=== PATIENT | male | born 1945 | race Hispanic/Latino ===

== ENCOUNTER 2018-06-02 20:39 | Inpatient (IN) | payer MEDICARE ==
[2018-06-02] MEDS ORDERED: NACL 0.9% 1000 ML 1,000 ML IV ONE ×2 (21:15→23:01)
--- NOTE | 2018-06-02 21:21 | Emergency Department Report ---
ED General Adult HPI - General Chief complaint: Weakness Stated complaint: AMS Time Seen by Provider: 06/02/18 21:02 Source: patient, EMS Mode of arrival: Stretcher Limitations: No Limitations - History of Present Illness Initial comments: Patient is 72 years old male with history of hypertension and posttraumatic stress disorder. Patient brought to the emergency room via EMS after patient neighbors called 911 saying that patient was not seen for a while. Patient 2 weeks ago and patient live by himself. Patient's complaining of generali zed weakness. Patient stated that the last time he ate was yesterday. Patient is confused and stated that his came on so him today. He denied any headache, chest pain or shortness of breath. Severity scale (0 -10): 0 - Related Data Previous Rx's Medication Instructions Recorded Last Taken Type Albuterol *Only Ed* [Proventil 2.5 mg IH Q4HRT PRN #1 nebu 10/03/14 Unknown Rx 0.5% NEBS] Folic Acid [Folvite] 1 mg PO QDAY #30 tablet 10/03/14 Unknown Rx Furosemide [Lasix TAB] 20 mg PO QDAY #30 tablet 10/03/14 Unknown Rx Metoprolol [Lopressor TAB] 12.5 mg PO BID #60 tablet 10/03/14 Unknown Rx Multivitamins Liq [Multiple 5 ml PO QDAY 30 Days oral.liqd 10/03/14 Unknown Rx Vitamin Liq (Theragran)] Thiamine [Vitamin B-1] 100 mg PO QDAY #30 tablet 10/03/14 Unknown Rx Allergies Allergy/AdvReac Type Severity Reaction Status Date / Time diphenhydramine HCl Allergy Unknown Verified 09/24/14 11:56 [From Benadryl] ED Review of Systems ROS: Stated complaint: AMS Other details as noted in HPI Comment: All other systems reviewed and negative Constitutional: denies: chills, fever Respiratory: denies: cough, orthopnea, shortness of breath, SOB with exertion, SOB at rest, wheezing Cardiovascular: denies: chest pain, palpitations, dyspnea on exertion Gastrointestinal: denies: abdominal pain, nausea, vomiting, diarrhea, constipation, hematemesis, melena, hematochezia Musculoskeletal: denies: back pain Neurological: weakness, confusion. denies: headache, numbness, paresthesias ED Past Medical Hx - Past Medical History Previous Medical History?: Yes Hx Hypertension: Yes Hx Seizures: Yes Hx Psychiatric Treatment: Yes (PTSD) Hx Asthma: Yes Additional medical history: patient altered hard to get history - Surgical History Past Surgical History?: No - Social History Smoking Status: Current Every Day Smoker - Medications Home Medications: Home Medications Medication Instructions Recorded Confirmed Last Taken Type Albuterol *Only Ed* [Proventil 2.5 mg IH Q4HRT PRN #1 nebu 10/03/14 Unknown Rx 0.5% NEBS] Folic Acid [Folvite] 1 mg PO QDAY #30 tablet 10/03/14 Unknown Rx Furosemide [Lasix TAB] 20 mg PO QDAY #30 tablet 10/03/14 Unknown Rx Metoprolol [Lopressor TAB] 12.5 mg PO BID #60 tablet 10/03/14 Unknown Rx Multivitamins Liq [Multiple 5 ml PO QDAY 30 Days oral.liqd 10/03/14 Unknown Rx Vitamin Liq (Theragran)] Thiamine [Vitamin B-1] 100 mg PO QDAY #30 tablet 10/03/14 Unknown Rx ED Physical Exam - General Limitations: No Limitations General appearance: alert, in no apparent distress - Head Head exam: Present: atraumatic, normocephalic, normal inspection - Eye Eye exam: Present: normal appearance - ENT ENT exam: Present: normal exam, normal orophraynx, mucous membranes moist - Neck Neck exam: Present: normal inspection, full ROM. Absent: tenderness, meningismus, lymphadenopathy, thyromegaly - Respiratory Respiratory exam: Present: normal lung sounds bilaterally - Cardiovascular Cardiovascular Exam: Present: regular rate, normal rhythm, normal heart sounds. Absent: bradycardia, tachycardia, irregular rhythm, systolic murmur, diastolic murmur, rubs, gallop - GI/Abdominal GI/Abdominal exam: Present: soft, normal bowel sounds. Absent: distended, tenderness, guarding, rebound, rigid, mass, bruit, pulsatile mass, hernia - Extremities Exam Extremities exam: Present: normal inspection, full ROM, normal capillary refill - Back Exam Back exam: Present: normal inspection, full ROM - Neurological Exam Neurological exam: Present: alert, oriented X3, CN II-XII intact, normal gait, reflexes normal - Skin Skin exam: Present: warm, intact, normal color ED Course Vital Signs 06/02/18 20:56 Temperature 98.2 F Pulse Rate 79 Respiratory 16 Rate Blood Pressure 140/85 Blood Pressure 140/85 [Left] O2 Sat by Pulse 99 Oximetry ED Medical Decision Making - Lab Data Result diagrams: 06/02/18 21:25 06/02/18 21:25 - EKG Data -: EKG Interpreted by Me Rate: normal - EKG Data Interpretation: no acute changes 06/02/18 23:26 ? atrial flutter - Radiology Data Radiology results: report reviewed Referring Physician: KLEVER FERNANDES Patient Name: JERO STODDARD Date of : 1945 Sex: Male Report Date: 2018-06-02 Report Status: Finalized Findings [facility] [address] [place] [address] Cat Scan Report Signed Patient: JERO STODDARD MR#: [id number] : 1945 Acct:[id number] Age/Sex: 72 / M ADM Date: 06/02/18 Loc: ED Attending Dr: Ordering Physician: KLEVER FERNANDES Date of Service: 06/02/18 Procedure(s): CT head/brain wo con Accession Number(s): [id number] cc: KLEVER FERNANDES PROCEDURE: CT head without contrast. TECHNIQUE: Computerized tomography of the head was performed without contrast material. CT DOSE LENGTH PRODUCT: 929 mGycm HISTORY: Weakness . COMPARISONS: None. FINDINGS: The ventricles are normal in size. The clemente matter and white matter appear normal. There are no mass lesions. There is no intracranial hemorrhage. The calvarium appears intact. The mastoid air cells and paranasal sinuses are clear as far as visualized. IMPRESSION: Normal study. This document is electronically signed by Hadley Abdi MD., June 02 2018 10:58:14 PM ET Transcribed By: MRM Dictated By: HADLEY ABDI MD Electronically Authenticated By: HADLEY ABDI MD Signed Date/Time: 06/02/182299 DD/ 32 TD/TT: 06/02/182232 - Medical Decision Making Patient is 72 years old male with history of hypertension and posttraumatic stress disorder. Patient brought to the emergency room via EMS after patient neighbors called 911 saying that patient was not seen for a while. Patient 2 weeks ago and patient live by himself. Patient's complaining of generalized weakness. Patient stated that the last time he ate was yesterday. Patient is confused and stated that his came on so him today. He denied any headache, chest pain or shortness of breath. Patient had CT brain is negative for acute finding. Patient found to have a sodium of 109. Patient started on normal saline. I discussed the patient is Dr. Candace Elizabeth, she agreed to admit the patient to medical service. Critical Care Time: Yes Critical care time in (mins) excluding proc time.: 30 Critical care attestation.: If time is entered above; I have spent that time in minutes in the direct care of this critically ill patient, excluding procedure time. ED Disposition Clinical Impression: Acute hyponatremia, Altered mental status Disposition: 09 OP ADMIT IP TO THIS HOSP Is pt being admited?: Yes Condition: Stable Referrals: PRIMARY CARE, [Primary Care Provider] - 3-5 Days
[2018-06-02 21:37] LABS: Hematocrit 37.6 % (35.5-45.6); Hemoglobin 13.3 gm/dl (11.8-15.2); Mean Corpuscular HGB Conc 35 % (32-34); Mean Corpuscular Volume 93 fl (84-94); Platelet Count 206 K/mm3 (140-440); Red Blood Count 4.04 M/mm3 (3.65-5.03); Red Cell Distribution Width 12.8 % (13.2-15.2)
[2018-06-02 22:15] LABS: Basophils % (Manual) 0 % (0.0-1.8); Eosinophils % (Manual) 0 % (0.0-4.3); RBC Morphology Normal; Total Cells Counted 100
--- NOTE | 2018-06-02 22:15 | XRay Report ---
PROCEDURE: XR CHEST 1V AP TECHNIQUE: Single AP chest HISTORY: weakness COMPARISONS: FINDINGS: Cardiac and mediastinal contours are unremarkable. No focal pulmonary infiltrate is identified. No pl eural fluid collections seen. Pulmonary vasculature is unremarkable. IMPRESSION: Negative single view chest. This document is electronically signed by Thiago Naidu MD., June 02 2018 10:13:18 PM ET
[2018-06-02 22:24] LABS: Bacteria,Urine 1+ /HPF (Negative); Bilirubin,Urine NEG (Negative); Blood,Urine SM (Negative); Color,Urine Yellow (Yellow); Protein,Urine <15 mg/dL mg/dL (Negative)
[2018-06-02 22:31] LABS: BUN/Creatinine Ratio 12; Blood Urea Nitrogen 6 mg/dL (9-20); Calcium 8.7 mg/dL (8.4-10.2); Hemolysis Index 193
--- NOTE | 2018-06-02 23:00 | Cat Scan Report ---
PROCEDURE: CT head without contrast. TECHNIQUE: Computerized tomography of the head was performed without contrast material. CT DOSE LENGTH PRODUCT: 929 mGycm HISTORY: Weakness . COMPARISONS: None. FINDINGS: The ventricles are normal in size. The clemente matter and white matter appear normal. There are no mass lesions. There is no intracranial hemorrhage. The calvarium appears intact. The mastoid air cells and paranasal sinuses are clear as far as visualized. IMPRESSION: Normal study. This document is electronically signed by Hadley Villafuerte MD., June 02 2018 10:58:14 PM ET
--- NOTE | 2018-06-02 23:59 | History and Physical Report ---
<ELSY CRUZ - Last Filed: 06/03/18 02:58> History of Present Illness Date of examination: 06/02/18 Date of admission: 06/02/2018 Chief complaint: Weakness, change in mental status History of present illness: Patient is a 72-year-old male with history of hypertension and CHF who presents to the ER with complaints of weakness, and difficulty urinating. Patient states that his passed out 2 weeks ago and is currently living alone, he has a son in another state, patient complains of some confusion and difficulty remembering specific events and mild disorientation. Patient was examined in the ER and his laboratory values showed a sodium level of 109, his chloride was 71.3. Patient also had a CT scan of the brain and a chest x-ray which were negative, nephrology was consulted and he is being admitted for further evaluation of his low sodium. Past History Past Medical History: hypertension Past Surgical History: No surgical history Social history: no significant social history, , Lives alone Family history: no significant family history Medications and Allergies Allergies Allergy/AdvReac Type Severity Reaction Status Date / Time diphenhydramine HCl Allergy Unknown Verified 09/24/14 11:56 [From Benadryl] Home Medications Medication Instructions Recorded Confirmed Last Taken Type Albuterol *Only Ed* [Proventil 2.5 mg IH Q4HRT PRN #1 nebu 10/03/14 Unknown Rx 0.5% NEBS] Folic Acid [Folvite] 1 mg PO QDAY #30 tablet 10/03/14 Unknown Rx Furosemide [Lasix TAB] 20 mg PO QDAY #30 tablet 10/03/14 Unknown Rx Metoprolol [Lopressor TAB] 12.5 mg PO BID #60 tablet 10/03/14 Unknown Rx Multivitamins Liq [Multiple 5 ml PO QDAY 30 Days oral.liqd 10/03/14 Unknown Rx Vitamin Liq (Theragran)] Thiamine [Vitamin B-1] 100 mg PO QDAY #30 tablet 10/03/14 Unknown Rx Active Meds: Active Medications Enoxaparin Sodium (Lovenox) 30 mg SUB-Q QDAY CINDA Sodium Chloride (Nacl 0.9% 1000 Ml) 1,000 mls @ 125 mls/hr IV ONCE ONE Stop: 06/03/18 07:00 Last Admin: 06/02/18 23:28 Dose: 125 mls/hr Documented by: Review of Systems Constitutional: weakness Exam - Constitutional Vitals: Temp Pulse Resp BP Pulse Ox 98.2 F 66 17 142/79 100 06/02/18 20:56 06/02/18 21:00 06/02/18 21:00 06/02/18 21:00 06/02/18 21:00 General appearance: Present: mild distress - EENT Eyes: Present: EOM intact ENT: hearing intact - Neck Neck: Present: supple - Respiratory Respiratory effort: normal Respiratory: bilateral: CTA - Cardiovascular Rhythm: regular Heart Sounds: Present: S1 & S2 - Extremities Extremities: no ischemia, No edema Peripheral Pulses: within normal limits - Abdominal General gastrointestinal: Present: deferred Male genitourinary: Present: deferred - Rectal Rectal Exam: deferred - Integumentary Integumentary: Present: warm - Musculoskeletal Musculoskeletal: strength equal bilaterally - Psychiatric Psychiatric: appropriate mood/affect, cooperative - Neurologic Neurologic: moves all extremities Results - Labs CBC & Chem 7: 06/02/18 21:25 06/03/18 00:15 Labs: Laboratory Last Values WBC 5.5 K/mm3 (4.5-11.0) 06/02/18 21:25 RBC 4.04 M/mm3 (3.65-5.03) 06/02/18 21:25 Hgb 13.3 gm/dl (11.8-15.2) 06/02/18 21:25 Hct 37.6 % (35.5-45.6) 06/02/18 21:25 MCV 93 fl (84-94) 06/02/18 21:25 MCH 33 pg (28-32) H 06/02/18 21:25 MCHC 35 % (32-34) H 06/02/18 21:25 RDW 12.8 % (13.2-15.2) L 06/02/18 21:25 Plt Count 206 K/mm3 (140-440) 06/02/18 21:25 Petroleum % (Auto) Rubber Off 06/02/18 21:25 Add Manual Diff Complete 06/02/18 21:25 Total Counted 100 06/02/18 21:25 Seg Neuts % (Manual) 80.0 % (40.0-70.0) H 06/02/18 21:25 Band Neutrophils % 0 % 06/02/18 21:25 Lymphocytes % (Manual) 15.0 % (13.4-35.0) 06/02/18 21:25 Reactive Lymphs % (Man) 0 % 06/02/18 21:25 Monocytes % (Manual) 5.0 % (0.0-7.3) 06/02/18 21:25 Eosinophils % (Manual) 0 % (0.0-4.3) 06/02/18 21:25 Basophils % (Manual) 0 % (0.0-1.8) 06/02/18 21:25 Metamyelocytes % 0 % 06/02/18 21: Myelocytes % 0 % 06/02/18: Promyelocytes % 0 % 06/02/18: Blast Cells % 0 % 06/02/18: Nucleated RBC % Not Reportable 06/02/18 21: Seg Neutrophils # Man 4.4 K/mm3 (1.8-7.7) 06/02/18 21: Band Neutrophils # 0.0 K/mm3 06/02/18 21:25 Lymphocytes # (Manual) 0.8 K/mm3 (1.2-5.4) L 06/02/18 21:25 Abs React Lymphs (Man) 0.0 K/mm3 06/02/18 21: Monocytes # (Manual) 0.3 K/mm3 (0.0-0.8) 06/02/18 21:25 Eosinophils # (Manual) 0.0 K/mm3 (0.0-0.4) 06/02/18: Basophils # (Manual) 0.0 K/mm3 (0.0-0.1) 06/02/18 21:25 Metamyelocytes # 0.0 K/mm3 06/02/18 21:25 Myelocytes # 0.0 K/mm3 06/02/18 21: Promyelocytes # 0.0 K/mm3 06/02/18 21: Blast Cells # 0.0 K/mm3 06/02/18 21:25 WBC Morphology Not Reportable 06/02/18 21:25 Hypersegmented Neuts Not Reportable 06/02/18 21:25 Hyposegmented Neuts Not Reportable 06/02/18 21: Hypogranular Neuts Not Reportable 06/02/18 21:25 Smudge Cells Not Reportable 06/02/18 21:25 Toxic Granulation Not Reportable 06/02/18 21:25 Toxic Vacuolation Not Reportable 06/02/18 21:25 Dohle Bodies Not Reportable 06/02/18 21:25 Pelger-Huet Anomaly Not Reportable 06/02/18 21:25 Dashawn Rods Not Reportable 06/02/18 21:25 Platelet Estimate Appears normal 06/02/18 21:25 Clumped Platelets Not Reportable 06/02/18 21:25 Plt Clumps, EDTA Not Reportable 06/02/18 21:25 Large Platelets Not Reportable 06/02/18 21:25 Giant Platelets Not Reportable 06/02/18 21:25 Platelet Satelliting Not Reportable 06/02/18 21:25 Plt Morphology Comment Not Reportable 06/02/18 21:25 RBC Morphology Normal 06/02/18 21:25 Dimorphic RBCs Not Reportable 06/02/18 21:25 Polychromasia Not Reportable 06/02/18 21:25 Hypochromasia Not Reportable 06/02/18 21:25 Poikilocytosis Not Reportable 06/02/18 21:25 Anisocytosis Not Reportable 06/02/18 21:25 Microcytosis Not Reportable 06/02/18 21:25 Macrocytosis Not Reportable 06/02/18 21:25 Spherocytes Not Reportable 06/02/18 21:25 Pappenheimer Bodies Not Reportable 06/02/18 21:25 Sickle Cells Not Reportable 06/02/18 21:25 Target Cells Not Reportable 06/02/18 21:25 Tear Drop Cells Not Reportable 06/02/18 21:25 Ovalocytes Not Reportable 06/02/18 21:25 Helmet Cells Not Reportable 06/02/18 21:25 [place] Bodies Not Reportable 06/02/18 21:25 Vivian Rings Not Reportable 06/02/18 21:25 Mic Cells Not Reportable 06/02/18 21:25 Bite Cells Not Reportable 06/02/18 21:25 Crenated Cell Not Reportable 06/02/18 21:25 Elliptocytes Not Reportable 06/02/18 21:25 Acanthocytes (Spur) Not Reportable 06/02/18 21:25 Rouleaux Not Reportable 06/02/18 21:25 Hemoglobin C Crystals Not Reportable 06/02/18 21:25 Schistocytes Not Reportable 06/02/18 21:25 Malaria parasites Not Reportable 06/02/18 21:25 Rajesh Bodies Not Reportable 06/02/18 21:25 Hem Pathologist Commnt No 06/02/18 21:25 Sodium 109 mmol/L (137-145) L* 06/02/18 21:25 Potassium 4.1 mmol/L (3.6-5.0) 06/02/18 21:25 Chloride 71.3 mmol/L (98-107) L 06/02/18 21:25 Carbon Dioxide 28 mmol/L (22-30) 06/02/18 21:25 Anion Gap 14 mmol/L 06/02/18 21:25 BUN 6 mg/dL (9-20) L 06/02/18 21:25 Creatinine 0.5 mg/dL (0.8-1.5) L 06/02/18 21:25 Estimated GFR > 60 ml/min 06/02/18 21:25 BUN/Creatinine Ratio 12 % 06/02/18 21:25 Glucose 96 mg/dL (75-100) 06/02/18 21:25 POC Glucose 93 (70-105) 06/02/18 21:18 Calcium 8.7 mg/dL (8.4-10.2) 06/02/18 21:25 Magnesium 1.80 mg/dL (1.7-2.3) 06/02/18 21:25 Total Creatine Kinase 420 units/L (55-170) H 06/02/18 21:25 Troponin T < 0.010 ng/mL (0.00-0.029) 06/02/18 21:25 NT-Pro-B Natriuret Pep 379.8 pg/mL (0-900) 06/02/18 21:25 Urine Color Yellow (Yellow) 06/02/18 22:03 Urine Turbidity Slightly-cloudy (Clear) 06/02/18 22:03 Urine pH 6.0 (5.0-7.0) 06/02/18 22:03 Ur Specific [place] 1.004 (1.003-1.030) 06/02/18 22:03 Urine Protein <15 mg/dl mg/dL (Negative) 06/02/18 22:03 Urine Glucose (UA) Neg mg/dL (Negative) 06/02/18 22:03 Urine Ketones Neg mg/dL (Negative) 06/02/18 22:03 Urine Blood Sm (Negative) 06/02/18 22:03 Urine Nitrite Neg (Negative) 06/02/18 22:03 Urine Bilirubin Neg (Negative) 06/02/18 22:03 Urine Urobilinogen 2.0 mg/dL (<2.0) 06/02/18 22:03 Ur Leukocyte Esterase Lg (Negative) 06/02/18 22:03 Urine WBC (Auto) 24.0 /HPF (0.0-6.0) H 06/02/18 22:03 Urine RBC (Auto) 3.0 /HPF (0.0-6.0) 06/02/18 22:03 U Epithel Cells (Auto) < 1.0 /HPF (0-13.0) 06/02/18 22:03 Urine Bacteria (Auto) 1+ /HPF (Negative) 06/02/18 22:03 Assessment and Plan Assessment and plan: 1. Severe hyponatremia 2. Hypochloremic 3. Dehydration versus other etiology 4. Hypertension (BP stable) 5. History of CHF 6. Urinary retention (possibly due to BPH) Plan: Admit patient to med costuming supervisor BMP every 4 hours Nephrology consulted for evaluation Cardiac diet Encourage standing position for urination Resume home meds when available Continue normal saline per nephrology Further plan based on pt's hospital course Pt's condition and plan of care was d/w Dr gibbons Advance Directives: Yes VTE prophylaxis?: Chemical Plan of care discussed with patient/family: Yes <MATHEUS GIBBONS - Last Filed: 06/03/18 07:04> History of Present Illness Date of admission: 06/02/18 23:56 Medications and Allergies Active Meds: Active Medications Acetaminophen (Tylenol) 650 mg PO Q4H PRN PRN Reason: Pain MILD(1-3)/Fever >100.5/CHANCE Enoxaparin Sodium (Lovenox) 40 mg SUB-Q QDAY@1000 CINDA Sodium Chloride (Nacl 0.9% 1000 Ml) 1,000 mls @ 125 mls/hr IV ONCE ONE Stop: 06/03/18 07:00 Last Admin: 06/02/18 23:28 Dose: 125 mls/hr Documented by: Sodium Chloride (Nacl 0.9% 1000 Ml) 1,000 mls @ 75 mls/hr IV DIRECT CINDA Last Admin: 06/03/18 00:45 Dose: 75 mls/hr Documented by: Ceftriaxone Sodium (Rocephin/Ns 1 Gm/50 Ml) 1 gm in 50 mls @ 100 mls/hr IV Q24H R@0600 CINDA; Protocol Last Admin: 06/03/18 02:28 Dose: 100 mls/hr Documented by: Ondansetron HCl (Zofran) 4 mg IV Q8H PRN PRN Reason: Nausea And Vomiting Sodium Chloride (Sodium Chloride Flush Syringe 10 Ml) 10 ml IV BID CINDA Sodium Chloride (Sodium Chloride Flush Syringe 10 Ml) 10 ml IV PRN PRN PRN Reason: LINE FLUSH Exam - Constitutional Vitals: Temp Pulse Resp BP Pulse Ox 98.2 F 78 17 157/94 97 06/02/18 20:56 06/03/18 02:00 06/03/18 02:00 06/03/18 02:00 06/03/18 02:00 Results - Labs CBC & Chem 7: 06/02/18 21:25 06/03/18 00:15 Labs: Laboratory Last Values WBC 5.5 K/mm3 (4.5-11.0) 06/02/18 21:25 RBC 4.04 M/mm3 (3.65-5.03) 06/02/18 21:25 Hgb 13.3 gm/dl (11.8-15.2) 06/02/18 21:25 Hct 37.6 % (35.5-45.6) 06/02/18 21:25 MCV 93 fl (84-94) 06/02/18 21:25 MCH 33 pg (28-32) H 06/02/18 21:25 MCHC 35 % (32-34) H 06/02/18 21:25 RDW 12.8 % (13.2-15.2) L 06/02/18 21:25 Plt Count 206 K/mm3 (140-440) 06/02/18 21:25 Petroleum % (Auto) Rubber Off 06/02/18 21:25 Add Manual Diff Complete 06/02/18 21:25 Total Counted 100 06/02/18 21:25 Seg Neuts % (Manual) 80.0 % (40.0-70.0) H 06/02/18 21:25 Band Neutrophils % 0 % 06/02/18 21:25 Lymphocytes % (Manual) 15.0 % (13.4-35.0) 06/02/18 21:25 Reactive Lymphs % (Man) 0 % 06/02/18 21:25 Monocytes % (Manual) 5.0 % (0.0-7.3) 06/02/18 21:25 Eosinophils % (Manual) 0 % (0.0-4.3) 06/02/18 21:25 Basophils % (Manual) 0 % (0.0-1.8) 06/02/18 21:25 Metamyelocytes % 0 % 06/02/18 21: Myelocytes % 0 % 06/02/18 21: Promyelocytes % 0 % 06/02/18 21: Blast Cells % 0 % 06/02/18 21:25 Nucleated RBC % Not Reportable 06/02/18 21:25 Seg Neutrophils # Man 4.4 K/mm3 (1.8-7.7) 06/02/18 21:25 Band Neutrophils # 0.0 K/mm3 06/02/18 21: Lymphocytes # (Manual) 0.8 K/mm3 (1.2-5.4) L 06/02/18 21:25 Abs React Lymphs (Man) 0.0 K/mm3 06/02/18 21:25 Monocytes # (Manual) 0.3 K/mm3 (0.0-0.8) 06/02/18 21:25 Eosinophils # (Manual) 0.0 K/mm3 (0.0-0.4) 06/02/18 21: Basophils # (Manual) 0.0 K/mm3 (0.0-0.1) 06/02/18 21: Metamyelocytes # 0.0 K/mm3 06/02/18 21: Myelocytes # 0.0 K/mm3 06/02/18 21:25 Promyelocytes # 0.0 K/mm3 06/02/18 21:25 Blast Cells # 0.0 K/mm3 06/02/18 21:25 WBC Morphology Not Reportable 06/02/18 21: Hypersegmented Neuts Not Reportable 06/02/18 21:25 Hyposegmented Neuts Not Reportable 06/02/18 21:25 Hypogranular Neuts Not Reportable 06/02/18 21:25 Smudge Cells Not Reportable 06/02/18 21:25 Toxic Granulation Not Reportable 06/02/18 21:25 Toxic Vacuolation Not Reportable 06/02/18 21:25 Dohle Bodies Not Reportable 06/02/18 21:25 Pelger-Huet Anomaly Not Reportable 06/02/18 21:25 Dashawn Rods Not Reportable 06/02/18 21:25 Platelet Estimate Appears normal 06/02/18 21:25 Clumped Platelets Not Reportable 06/02/18 21:25 Plt Clumps, EDTA Not Reportable 06/02/18 21:25 Large Platelets Not Reportable 06/02/18 21:25 Giant Platelets Not Reportable 06/02/18 21:25 Platelet Satelliting Not Reportable 06/02/18 21:25 Plt Morphology Comment Not Reportable 06/02/18 21:25 RBC Morphology Normal 06/02/18 21:25 Dimorphic RBCs Not Reportable 06/02/18 21:25 Polychromasia Not Reportable 06/02/18 21:25 Hypochromasia Not Reportable 06/02/18 21:25 Poikilocytosis Not Reportable 06/02/18 21:25 Anisocytosis Not Reportable 06/02/18 21:25 Microcytosis Not Reportable 06/02/18 21:25 Macrocytosis Not Reportable 06/02/18 21:25 Spherocytes Not Reportable 06/02/18 21:25 Pappenheimer Bodies Not Reportable 06/02/18 21:25 Sickle Cells Not Reportable 06/02/18 21:25 Target Cells Not Reportable 06/02/18 21:25 Tear Drop Cells Not Reportable 06/02/18 21:25 Ovalocytes Not Reportable 06/02/18 21:25 Helmet Cells Not Reportable 06/02/18 21:25 Oliv[place] Bodies Not Reportable 06/02/18 21:25 Vivian Rings Not Reportable 06/02/18 21:25 [place] Cells Not Reportable 06/02/18 21:25 Bite Cells Not Reportable 06/02/18 21:25 Crenated Cell Not Reportable 06/02/18 21:25 Elliptocytes Not Reportable 06/02/18 21:25 Acanthocytes (Spur) Not Reportable 06/02/18 21:25 Rouleaux Not Reportable 06/02/18 21:25 Hemoglobin C Crystals Not Reportable 06/02/18 21:25 Schistocytes Not Reportable 06/02/18 21:25 Malaria parasites Not Reportable 06/02/18 21:25 Rajesh Bodies Not Reportable 06/02/18 21:25 Hem Pathologist Commnt No 06/02/18 21:25 Sodium 113 mmol/L (137-145) L* 06/03/18 00:15 Potassium 3.5 mmol/L (3.6-5.0) L 06/03/18 00:15 Chloride 77.2 mmol/L (98-107) L 06/03/18 00:15 Carbon Dioxide 24 mmol/L (22-30) 06/03/18 00:15 Anion Gap 15 mmol/L 06/03/18 00:15 BUN 5 mg/dL (9-20) L 06/03/18 00:15 Creatinine 0.4 mg/dL (0.8-1.5) L 06/03/18 00:15 Estimated GFR > 60 ml/min 06/03/18 00:15 BUN/Creatinine Ratio 13 % 06/03/18 00:15 Glucose 97 mg/dL (75-100) 06/03/18 00:15 POC Glucose 93 (70-105) 06/02/18 21:18 Calcium 8.2 mg/dL (8.4-10.2) L 06/03/18 00:15 Magnesium 1.80 mg/dL (1.7-2.3) 06/02/18 21:25 Total Creatine Kinase 420 units/L (55-170) H 06/02/18 21:25 Troponin T < 0.010 ng/mL (0.00-0.029) 06/02/18 21:25 NT-Pro-B Natriuret Pep 379.8 pg/mL (0-900) 06/02/18 21:25 Urine Color Yellow (Yellow) 06/02/18 22:03 Urine Turbidity Slightly-cloudy (Clear) 06/02/18 22:03 Urine pH 6.0 (5.0-7.0) 06/02/18 22:03 Ur Specific [place] 1.004 (1.003-1.030) 06/02/18 22:03 Urine Protein <15 mg/dl mg/dL (Negative) 06/02/18 22: Urine Glucose (UA) Neg mg/dL (Negative) 06/02/18 22: Urine Ketones Neg mg/dL (Negative) 06/02/18 22:03 Urine Blood Sm (Negative) 06/02/18 22: Urine Nitrite Neg (Negative) 06/02/18 22: Urine Bilirubin Neg (Negative) 06/02/18 22: Urine Urobilinogen 2.0 mg/dL (<2.0) 06/02/18 22: Ur Leukocyte Esterase Lg (Negative) 06/02/18 22: Urine WBC (Auto) 24.0 /HPF (0.0-6.0) H 06/02/18 22: Urine RBC (Auto) 3.0 /HPF (0.0-6.0) 06/02/18 22: U Epithel Cells (Auto) < 1.0 /HPF (0-13.0) 06/02/18 22: Urine Bacteria (Auto) 1+ /HPF (Negative) 06/02/18 22: Urine Osmolality 203 Mosm/kg 06/02/18 22: Urine Sodium 20 mmol/L 06/02/18 22:02 Assessment and Plan Assessment and plan: 72-year-old male with a history of hypertension, alcohol abuse was brought by his neighbor to the emergency room for evaluation of confusion. He is unable to give much history, he does not remember how he got here. In the emergency room he was found to have a sodium of 109. Agree with plan as discussed above, case was discussed with Dr. Marte . In addition check urine sodium, osmolality, start IV Rocephin for UTI. Follow-up medication reconciliation
[2018-06-03] MEDS ORDERED: SODIUM CHLORIDE FLUSH SYRINGE 10 ML IV PRN (00:05)
[2018-06-03] MEDS ORDERED: ZOFRAN IV PRN (00:05)
[2018-06-03] MEDS: NACL 0.9% 1000 ML 1,000 ML IV SCH ×2 (00:45→14:37)
[2018-06-03 00:58] LABS: BUN/Creatinine Ratio 13; Blood Urea Nitrogen 5 mg/dL (9-20); Calcium 8.2 mg/dL (8.4-10.2); Hemolysis Index 10
[2018-06-03] MEDS ORDERED: ROCEPHIN IM ONE (02:27)
[2018-06-03] MEDS ORDERED: ROCEPHIN/NS 1 GM/50 ML 1 GM/50 ML BAG IV ONE (02:28)
[2018-06-03] MEDS: ROCEPHIN/NS 1 GM/50 ML 1 GM/50 ML BAG IV SCH (02:28)
[2018-06-03 02:34] LABS: Osmolality,Urine 203 Mosm/kg
[2018-06-03 07:25] LABS: BUN/Creatinine Ratio 8; Blood Urea Nitrogen 4 mg/dL (9-20); Calcium 7.9 mg/dL (8.4-10.2); Hemolysis Index 7
[2018-06-03] MEDS: LOVENOX SUB-Q SCH (09:34)
[2018-06-03] MEDS: SODIUM CHLORIDE FLUSH SYRINGE 10 ML IV SCH ×2 (09:34→21:57)
--- NOTE | 2018-06-03 09:54 | Consultation ---
History of Present Illness - Reason for Consult Consult date: 06/03/18 hyponatremia - History of Present Illness Mr. Aguilar is 72 years old male with history of hypertension and posttraumatic stress disorder who presented to the ED via EMS In the ED, patient reported generalized weakness, confusion, difficulty remembering specific events and mild disorientation. In the ED, labs were notable for Na 109. Patient admitted for severe hyponatremia. This AM, Na improved to 118. Presently, he denies nausea, headache, malaise, Past History Past Medical History: hypertension Past Surgical History: No surgical history Social history: no significant social history, , Lives alone Family history: no significant family history Medications and Allergies Allergies Allergy/AdvReac Type Severity Reaction Status Date / Time diphenhydramine HCl Allergy Unknown Verified 09/24/14 11:56 [facility] Home Medications Medication Instructions Recorded Confirmed Last Taken Type Albuterol *Only Ed* [Proventil 2.5 mg IH Q4HRT PRN #1 nebu 10/03/14 06/03/18 Unknown Rx 0.5% NEBS] Folic Acid [Folvite] 1 mg PO QDAY #30 tablet 10/03/14 06/03/18 Unknown Rx Furosemide [Lasix TAB] 20 mg PO QDAY #30 tablet 10/03/14 06/03/18 Unknown Rx Metoprolol [Lopressor TAB] 12.5 mg PO BID #60 tablet 10/03/14 06/03/18 Unknown Rx Multivitamins Liq [Multiple 5 ml PO QDAY 30 Days oral.liqd 10/03/14 06/03/18 Unknown Rx Vitamin Liq (Theragran)] Thiamine [Vitamin B-1] 100 mg PO QDAY #30 tablet 10/03/14 06/03/18 Unknown Rx Active Meds: Active Medications Acetaminophen (Tylenol) 650 mg PO Q4H PRN PRN Reason: Pain MILD(1-3)/Fever >100.5/CHANCE Enoxaparin Sodium (Lovenox) 40 mg SUB-Q QDAY@1000 CINDA Last Admin: 06/03/18 09:34 Dose: 40 mg Documented by: Sodium Chloride (Nacl 0.9% 1000 Ml) 1,000 mls @ 75 mls/hr IV DIRECT CINDA Last Admin: 06/03/18 00:45 Dose: 75 mls/hr Documented by: Ceftriaxone Sodium (Rocephin/Ns 1 Gm/50 Ml) 1 gm in 50 mls @ 100 mls/hr IV Q24HR@0600 [facility]; Protocol Last Admin: 06/03/18 02:28 Dose: 100 mls/hr Documented by: Ondansetron HCl (Zofran) 4 mg IV Q8H PRN PRN Reason: Nausea And Vomiting Sodium Chloride (Sodium Chloride Flush Syringe 10 Ml) 10 ml IV BID [facility] Last Admin: 06/03/18 09:34 Dose: 10 ml Documented by: Sodium Chloride (Sodium Chloride Flush Syringe 10 Ml) 10 ml IV PRN PRN PRN Reason: LINE FLUSH Review of Systems All systems: negative Exam - Vital Signs Vital signs: Vital Signs Temp Pulse Resp BP Pulse Ox 98.2 F 79 16 140/85 99 06/02/18 20:56 06/02/18 20:56 06/02/18 20:56 06/02/18 20:56 06/02/18 20:56 - General Appearance General appearance: well-developed, well-nourished EENT: ATNC Respiratory: Clear to Ascultation Heart: regular, S1S2 Gastrointestinal: Present: normal. Absent: tenderness, distended Integumentary: warm and dry Neurologic: no focal deficit Musculoskeletal: Present: other (no edema) Psychiatric: mood/affect appropriate, cooperative Results - Lab Results 06/02/18 21:25 06/03/18 14:41 Most recent lab results Calcium 7.9 mg/dL (8.4-10.2) L 06/03/18 06:27 Magnesium 1.80 mg/dL (1.7-2.3) 06/02/18 21:25 Urine Sodium 20 mmol/L 06/02/18 22:02 Assessment and Plan Impression: * Symptomatic hyponatremia --UOsm 203, Felix 20 * Urinary tract infection * Hypertension Plan: * SNa improved to 118; UOsm and Felix noted - ?SIADH. SOsm pending * Continue serial Na * Consider NaCl tablets vs V2 receptor antagonist * Check TSH * Strict I/O * Restrict fluid intake * Abx per primary team
[2018-06-03] MEDS ORDERED: LOVENOX SUB-Q SCH (10:00)
[2018-06-03 10:39] LABS: BUN/Creatinine Ratio 10; Blood Urea Nitrogen 4 mg/dL (9-20); Calcium 8.1 mg/dL (8.4-10.2); Hemolysis Index 12
--- NOTE | 2018-06-03 11:59 | Progress Note ---
Assessment and Plan Assessment and plan: 72-year-old man with history of alcoholism and likely dementia which has not been diagnosed with suspected by family. The patient's and he was dependent on her past the week 2 weeks prior. He was home by himself, is apparently drinking heavily not eating and not. He had been confused per his son and neighbors. His son and asked him to go to the ER he called the EMS. The patient was found to have a very low sodium, folic acid agitated and confused. CT head no acute findings Chest x-ray no acute findings -The patient is on [facility] protocol for alcohol withdrawal Continue saline IV fluid, replace potassium -UTI suspected, continue empiric antibiotics, follow-up urine culture Steroids and nebulizers and pulmonary consults. -Dietitian consult and mentation is improved Diagnoses Alcohol dependence and withdrawal Acute metabolic encephalopathy Severe hyponatremia Hypercholesteremia Beer potomania Moderate malnutrition COPD exacerbation Tobacco abuse, Sotero every day smoker Acute hypoxic respiratory failure History Interval history: Patient has been confused and agitated he has been noted tried to climb out of bed multiple times Review of systems Constitutional: No fevers, no malaise, no joint pains CVS: No chest pain, no orthopnea, no dyspnea on exertion, no pedal edema GI: No abdominal pain, no diarrhea, no vomiting, no constipation Respiratory: He has had wheezing and shortness of breath Hospitalist Physical - Physical exam Narrative exam: General.: , nontoxic HEENT: Moist mucous membranes, extraocular muscles intact, no lymphadenopathy Neck: supple Cardiac: S1-S2 heard Lungs: Decreased air entry, wheezing throughout Abdomen: soft , nontender, nondistended, bowel sounds positive Extremities: no edema clubbing or cyanosis Skin: no rash or lesions Neurologic: Confused, moves all extremities Psych: Agitated - Constitutional Vitals: Temp Pulse Resp BP Pulse Ox 98.0 F 71 20 134/71 99 06/03/18 08:15 06/03/18 08:15 06/03/18 08:15 06/03/18 08:15 06/03/18 08:15 General appearance: Present: mild distress Results - Labs CBC & Chem 7: 06/04/18 09:47 06/05/18 04:29 Labs: Laboratory Last Values WBC 5.5 K/mm3 (4.5-11.0) 06/02/18 21:25 RBC 4.04 M/mm3 (3.65-5.03) 06/02/18 21: Hgb 13.3 gm/dl (11.8-15.2) 06/02/18: Hct 37.6 % (35.5-45.6) 06/02/18 21: MCV 93 fl (84-94) 06/02/18 21: MCH 33 pg (28-32) H 06/02/18 21: MCHC 35 % (32-34) H 06/02/18 21: RDW 12.8 % (13.2-15.2) L 06/02/18: Plt Count 206 K/mm3 (140-440) 06/02/18 21: [place] % (Auto) Head Transfer Clerk 06/02/18 21: Add Manual Diff Complete 06/02/18: Total Counted 100 06/02/18 21: Seg Neuts % (Manual) 80.0 % (40.0-70.0) H 06/02/18 21: Band Neutrophils % 0 % 06/02/18 21:25 Lymphocytes % (Manual) 15.0 % (13.4-35.0) 06/02/18 21: Reactive Lymphs % (Man) 0 % 06/02/18: Monocytes % (Manual) 5.0 % (0.0-7.3) 06/02/18: Eosinophils % (Manual) 0 % (0.0-4.3) 06/02/18: Basophils % (Manual) 0 % (0.0-1.8) 06/02/18: Metamyelocytes % 0 % 06/02/18 21: Myelocytes % 0 % 06/02/18 21: Promyelocytes % 0 % 06/02/18 21: Blast Cells % 0 % 06/02/18: Nucleated RBC % Not Reportable 06/02/18: Seg Neutrophils # Man 4.4 K/mm3 (1.8-7.7) 06/02/18: Band Neutrophils # 0.0 K/mm3 06/02/18: Lymphocytes # (Manual) 0.8 K/mm3 (1.2-5.4) L 04/15/19 21:25 Abs React Lymphs (Man) 0.0 K/mm3 06/02/18 21:25 Monocytes # (Manual) 0.3 K/mm3 (0.0-0.8) 06/02/18 21:25 Eosinophils # (Manual) 0.0 K/mm3 (0.0-0.4) 06/02/18 21:25 Basophils # (Manual) 0.0 K/mm3 (0.0-0.1) 06/02/18 21:25 Metamyelocytes # 0.0 K/mm3 06/02/18 21:25 Myelocytes # 0.0 K/mm3 06/02/18 21:25 Promyelocytes # 0.0 K/mm3 06/02/18 21:25 Blast Cells # 0.0 K/mm3 06/02/18 21:25 WBC Morphology Not Reportable 06/02/18 21:25 Hypersegmented Neuts Not Reportable 06/02/18 21:25 Hyposegmented Neuts Not Reportable 06/02/18 21:25 Hypogranular Neuts Not Reportable 06/02/18 21:25 Smudge Cells Not Reportable 06/02/18 21:25 Toxic Granulation Not Reportable 06/02/18 21:25 Toxic Vacuolation Not Reportable 06/02/18 21:25 Dohle Bodies Not Reportable 06/02/18 21:25 Pelger-Huet Anomaly Not Reportable 06/02/18 21:25 Dashawn Rods Not Reportable 06/02/18 21:25 Platelet Estimate Appears normal 06/02/18 21:25 Clumped Platelets Not Reportable 06/02/18 21:25 Plt Clumps, EDTA Not Reportable 06/02/18 21:25 Large Platelets Not Reportable 06/02/18 21:25 Giant Platelets Not Reportable 06/02/18 21:25 Platelet Satelliting Not Reportable 06/02/18 21:25 Plt Morphology Comment Not Reportable 06/02/18 21:25 RBC Morphology Normal 06/02/18 21:25 Dimorphic RBCs Not Reportable 06/02/18 21:25 Polychromasia Not Reportable 06/02/18 21:25 Hypochromasia Not Reportable 06/02/18 21:25 Poikilocytosis Not Reportable 06/02/18 21:25 Anisocytosis Not Reportable 06/02/18 21:25 Microcytosis Not Reportable 06/02/18 21:25 Macrocytosis Not Reportable 06/02/18 21:25 Spherocytes Not Reportable 06/02/18 21:25 Pappenheimer Bodies Not Reportable 06/02/18 21:25 Sickle Cells Not Reportable 06/02/18 21:25 Target Cells Not Reportable 06/02/18 21:25 Tear Drop Cells Not Reportable 06/02/18 21:25 Ovalocytes Not Reportable 06/02/18 21:25 Helmet Cells Not Reportable 06/02/18 21:25 Olivier-Lisco Bodies Not Reportable 06/02/18 21:25 [place] Rings Not Reportable 06/02/18 21:25 [place] Cells Not Reportable 06/02/18 21:25 Bite Cells Not Reportable 06/02/18 21:25 Crenated Cell Not Reportable 06/02/18 21:25 Elliptocytes Not Reportable 06/02/18 21:25 Acanthocytes (Spur) Not Reportable 06/02/18 21:25 Rouleaux Not Reportable 06/02/18 21:25 Hemoglobin C Crystals Not Reportable 06/02/18 21:25 Schistocytes Not Reportable 06/02/18 21:25 Malaria parasites Not Reportable 06/02/18 21:25 Rajesh Bodies Not Reportable 06/02/18 21:25 Hem Pathologist Commnt No 06/02/18 21:25 Sodium 116 mmol/L (137-145) L* 06/03/18 09:42 Potassium 3.5 mmol/L (3.6-5.0) L 06/03/18 09:42 Chloride 78.2 mmol/L (98-107) L 06/03/18 09:42 Carbon Dioxide 25 mmol/L (22-30) 06/03/18 09:42 Anion Gap 16 mmol/L 06/03/18 09:42 BUN 4 mg/dL (9-20) L 06/03/18 09:42 Creatinine 0.4 mg/dL (0.8-1.5) L 06/03/18 09:42 Estimated GFR > 60 ml/min 06/03/18 09:42 BUN/Creatinine Ratio 10 % 06/03/18 09:42 Glucose 84 mg/dL (75-100) 06/03/18 09:42 POC Glucose 93 (70-105) 06/02/18 21:18 Calcium 8.1 mg/dL (8.4-10.2) L 06/03/18 09:42 Magnesium 1.80 mg/dL (1.7-2.3) 06/02/18 21:25 Total Creatine Kinase 420 units/L (55-170) H 06/02/18 21:25 Troponin T < 0.010 ng/mL (0.00-0.029) 06/02/18 21:25 NT-Pro-B Natriuret Pep 379.8 pg/mL (0-900) 06/02/18 21:25 Urine Color Yellow (Yellow) 06/02/18 22:03 Urine Turbidity Slightly-cloudy (Clear) 06/02/18 22:03 Urine pH 6.0 (5.0-7.0) 06/02/18 22:03 Ur Specific [place] 1.004 (1.003-1.030) 06/02/18 22:03 Urine Protein <15 mg/dl mg/dL (Negative) 06/02/18 22:03 Urine Glucose (UA) Neg mg/dL (Negative) 06/02/18 22:03 Urine Ketones Neg mg/dL (Negative) 06/02/18 22:03 Urine Blood Sm (Negative) 06/02/18 22:03 Urine Nitrite Neg (Negative) 06/02/18 22:03 Urine Bilirubin Neg (Negative) 06/02/18 22:03 Urine Urobilinogen 2.0 mg/dL (<2.0) 06/02/18 22:03 Ur Leukocyte Esterase Lg (Negative) 06/02/18 22:03 Urine WBC (Auto) 24.0 /HPF (0.0-6.0) H 06/02/18 22:03 Urine RBC (Auto) 3.0 /HPF (0.0-6.0) 06/02/18 22:03 U Epithel Cells (Auto) < 1.0 /HPF (0-13.0) 06/02/18 22:03 Urine Bacteria (Auto) 1+ /HPF (Negative) 06/02/18 22:03 Urine Osmolality 203 Mosm/kg 06/02/18 22:02 Urine Sodium 20 mmol/L 06/02/18 22:02 Active Medications - Current Medications Current Medications: Generic Name Dose Route Start Last Admin Trade Name Freq PRN Reason Stop Dose Admin Acetaminophen 650 mg 06/03/18 00:05 Tylenol PO Q4H PRN Pain MILD(1-3)/Fever >100.5/CHANCE Enoxaparin Sodium 40 mg 06/03/18 10:00 06/03/18 09:34 Lovenox SUB-Q 40 mg QDAY@1000 CINDA Administration Sodium Chloride 1,000 mls @ 75 mls/hr 06/03/18 01:00 06/03/18 00:45 Nacl 0.9% 1000 Ml IV 75 mls/hr DIRECT CINDA Administration Ceftriaxone Sodium 1 gm in 50 mls @ 100 mls/hr 06/03/18 02:04 06/03/18 02:28 Rocephin/Ns 1 Gm/50 Ml IV 100 mls/hr Q24HR@0600 CINDA Administration Protocol Ondansetron HCl 4 mg 06/03/18 00:05 Zofran IV Q8H PRN Nausea And Vomiting Sodium Chloride 10 ml 06/03/18 10:00 06/03/18 09:34 Sodium Chloride Flush Syringe 10 Ml IV 10 ml BID CINDA Administration Sodium Chloride 10 ml 06/03/18 00:05 Sodium Chloride Flush Syringe 10 Ml IV PRN PRN LINE FLUSH
[2018-06-03] MEDS ORDERED: NON-FORMULARY (Albuterol *Only Ed* [Proventil 0.5% Nebs] 2.5 MG) IH PRN (12:00)
[2018-06-03] MEDS ORDERED: PROVENTIL IH PRN (13:11)
[2018-06-03] MEDS ORDERED: ATIVAN IV PRN (14:00)
[2018-06-03] MEDS ORDERED: ATIVAN PO PRN (14:01)
[2018-06-03] MEDS: ATIVAN IV PRN (14:36)
[2018-06-03] MEDS: FLOMAX PO SCH (14:36)
[2018-06-03 15:46] LABS: BUN/Creatinine Ratio 8; Blood Urea Nitrogen 4 mg/dL (9-20); Calcium 8.1 mg/dL (8.4-10.2); Hemolysis Index 10
--- NOTE | 2018-06-03 16:47 | XRay Report ---
PROCEDURE: XR CHEST 1V AP TECHNIQUE: Chest single AP HISTORY: sob COMPARISONS: Comparison is June 02, 2018 FINDINGS: Cardiac and mediastinal contours are unremarkable. No focal pulmonary infiltrate is identified no ple ural fluid collections seen. Pulmonary vasculature is unremarkable IMPRESSION: Negative single view chest. This document is electronically signed by Thiago Naidu MD., June 03 2018 04:45:06 PM ET
[2018-06-03] MEDS: PROTONIX IV SCH (17:35)
[2018-06-03] MEDS: SOLU-Medrol IV SCH ×2 (17:35→22:00)
[2018-06-03] MEDS ORDERED: ATIVAN ONE (18:31)
[2018-06-03] MEDS: DUONEB *Not for PRN Use IH SCH (20:36)
[2018-06-03] MEDS: BROVANA NEBU IH SCH (20:36)
[2018-06-03] MEDS: PULMICORT IH SCH (20:36)
[2018-06-03 21:14] LABS: BUN/Creatinine Ratio 8; Blood Urea Nitrogen 3 mg/dL (9-20); Calcium 8.3 mg/dL (8.4-10.2); Hemolysis Index 13
[2018-06-03] MEDS: SODIUM CHLORIDE PO SCH (22:11)
[2018-06-04] MEDS: DUONEB *Not for PRN Use IH SCH ×4 (03:19→20:15)
[2018-06-04] MEDS: SOLU-Medrol IV SCH ×3 (06:30→22:18)
[2018-06-04] MEDS: ROCEPHIN/NS 1 GM/50 ML 1 GM/50 ML BAG IV SCH (06:32)
[2018-06-04] MEDS: NACL 0.9% 1000 ML 1,000 ML IV SCH ×2 (06:33→23:48)
[2018-06-04 06:39] LABS: Alanine Aminotransferase 26 units/L (7-56); Albumin 3.1 g/dL (3.9-5); Bilirubin,Direct < 0.2 mg/dL (0-0.2)
[2018-06-04] MEDS: BROVANA NEBU IH SCH ×2 (08:45→20:15)
[2018-06-04] MEDS: PULMICORT IH SCH ×2 (08:46→20:15)
[2018-06-04] MEDS: SODIUM CHLORIDE PO SCH ×3 (10:00→22:18)
[2018-06-04 10:07] LABS: Hematocrit 36.1 % (35.5-45.6); Hemoglobin 12.4 gm/dl (11.8-15.2); Mean Corpuscular HGB Conc 34 % (32-34); Mean Corpuscular Volume 95 fl (84-94); Platelet Count 220 K/mm3 (140-440); Red Blood Count 3.81 M/mm3 (3.65-5.03); Red Cell Distribution Width 12.8 % (13.2-15.2)
[2018-06-04 10:25] LABS: BUN/Creatinine Ratio 10; Blood Urea Nitrogen 5 mg/dL (9-20); Calcium 8.3 mg/dL (8.4-10.2); Hemolysis Index 20
[2018-06-04 10:41] LABS: Basophils % (Manual) 0 % (0.0-1.8); Eosinophils % (Manual) 0 % (0.0-4.3); Total Cells Counted 100
[2018-06-04 10:42] LABS: Platelet Estimate Consistent w Auto; RBC Morphology Normal; Toxic Granulation 1+
[2018-06-04] MEDS: Centrum Liq PO SCH (11:00)
[2018-06-04] MEDS: PROTONIX IV SCH (11:01)
[2018-06-04] MEDS: LOVENOX SUB-Q SCH (11:01)
[2018-06-04] MEDS: FOLVITE PO SCH (11:01)
[2018-06-04] MEDS: SODIUM CHLORIDE FLUSH SYRINGE 10 ML IV SCH ×2 (11:03→22:19)
--- NOTE | 2018-06-04 11:09 | Progress Note ---
Assessment and Plan Impression: * Symptomatic hyponatremia --UOsm 203, Felix 20 --TSH wnl * Urinary tract infection * Hypertension Plan: * SNa improved * Continue serial Na * Continue NaCl tablets * Strict I/O * Restrict fluid intake * Abx per primary team Subjective Date of service: 06/04/18 Objective - Vital Signs Vital signs: Vital Signs - 12hr 06/04/18 06/04/18 06/04/18 00:00 04:00 04:09 Temperature 98.1 F 97.7 F Pulse Rate 72 Pulse Rate [ Anterior Bilateral Throughout] Respiratory Rate [Anterior Bilateral Throughout] O2 Sat by Pulse Oximetry 06/04/18 06/04/18 08:48 09:00 Temperature Pulse Rate Pulse Rate [ 68 70 Anterior Bilateral Throughout] Respiratory 20 13 Rate [Anterior Bilateral Throughout] O2 Sat by Pulse 98 Oximetry - Lab 06/04/18 09:47 06/04/18 09:47 Most recent lab results Calcium 8.3 mg/dL (8.4-10.2) L 06/04/18 09:47 Phosphorus 3.90 mg/dL (2.5-4.5) 06/04/18 09:47 Magnesium 1.80 mg/dL (1.7-2.3) 06/04/18 09:47 Urine Sodium 20 mmol/L 06/02/18 22:02 Medications & Allergies - Medications Allergies/Adverse Reactions: Allergies diphenhydramine HCl [From Benadryl] Allergy (Verified 09/24/14 11:56) Unknown HALLUCINATIONS Home Medications: Home Medications Medication Instructions Recorded Confirmed Last Taken Type Albuterol *Only Ed* [Proventil 2.5 mg IH Q4HRT PRN #1 nebu 10/03/14 06/03/18 Unknown Rx 0.5% NEBS] Folic Acid [Folvite] 1 mg PO QDAY #30 tablet 10/03/14 06/03/18 Unknown Rx Furosemide [Lasix TAB] 20 mg PO QDAY #30 tablet 10/03/14 06/03/18 Unknown Rx Metoprolol [Lopressor TAB] 12.5 mg PO BID #60 tablet 10/03/14 06/03/18 Unknown Rx Multivitamins Liq [Multiple 5 ml PO QDAY 30 Days oral.liqd 10/03/14 06/03/18 Unknown Rx Vitamin Liq (Theragran)] Thiamine [Vitamin B-1] 100 mg PO QDAY #30 tablet 10/03/14 06/03/18 Unknown Rx Active Medications: Generic Name Dose Route Start Last Admin Trade Name Freq PRN Reason Stop Dose Admin Acetaminophen 650 mg 06/03/18 00:05 Tylenol PO Q4H PRN Pain MILD(1-3)/Fever >100.5/CHANCE Albuterol 2.5 mg 06/03/18 13:11 06/03/18 15:01 Proventil IH 2.5 mg Q4HRT PRN Administration Shortness Of Breath Albuterol/Ipratropium 1 ampul 06/03/18 16:00 06/04/18 08:45 Duoneb *Not For Prn Use* IH 1 ampul Q6HRT CINDA Administration Arformoterol Tartrate 15 mcg 06/03/18 20:00 06/04/18 08:45 Brovana Nebu IH 15 mcg Q12HRT CINDA Administration Budesonide 0.5 mg 06/03/18 20:00 06/04/18 08:46 Pulmicort IH 0.5 mg Q12HRT CINDA Administration Enoxaparin Sodium 40 mg 06/03/18 10:00 06/04/18 11:01 Lovenox SUB-Q 40 mg QDAY@1000 CINDA Administration Folic Acid 1 mg 06/04/18 10:00 06/04/18 11:01 Folvite PO 1 mg QDAY CINDA Administration Sodium Chloride 1,000 mls @ 75 mls/hr 06/03/18 01:00 06/04/18 06:33 Nacl 0.9% 1000 Ml IV 75 mls/hr DIRECT CINDA Administration Ceftriaxone Sodium 1 gm in 50 mls @ 100 mls/hr 06/03/18 02:04 06/04/18 06:32 Rocephin/Ns 1 Gm/50 Ml IV 100 mls/hr Q24HR@0600 CINDA Administration Protocol Lorazepam 2 mg 06/03/18 14:00 Ativan PO Q1H PRN CIWA-Ar 8-15 Lorazepam 4 mg 06/03/18 14:00 Ativan IV Q1H PRN CIWA-Ar 16-25 Lorazepam 4 mg 06/03/18 14:00 Ativan IV Q15MIN PRN CIWA-Ar >25 Lorazepam 1 mg 06/03/18 14:01 06/03/18 14:36 Ativan IV 1 mg Q4H PRN Administration Agitation Lorazepam 1 mg 06/03/18 14:01 Ativan PO Q4H PRN Agitation Methylprednisolone Sodium Succinate 125 mg 06/03/18 16:00 06/04/18 06:30 Solu-Medrol IV 125 mg Q8HR CINDA Administration Multivitamins 5 ml 06/04/18 10:00 06/04/18 11:00 Centrum Liq PO 5 ml QDAY CINDA Administration Ondansetron HCl 4 mg 06/03/18 00:05 Zofran IV Q8H PRN Nausea And Vomiting Pantoprazole Sodium 40 mg 06/03/18 17:00 06/04/18 11:01 Protonix IV 40 mg QDAY CINDA Administration Sodium Chloride 10 ml 06/03/18 10:00 06/04/18 11:03 Sodium Chloride Flush Syringe 10 Ml IV 10 ml BID CINDA Administration Sodium Chloride 10 ml 06/03/18 00:05 Sodium Chloride Flush Syringe 10 Ml IV PRN PRN LINE FLUSH Sodium Chloride 1 gm 06/03/18 20:00 06/03/18 22:11 Sodium Chloride PO 1 gm TID CINDA Administration Tamsulosin HCl 0.4 mg 06/03/18 12:00 06/03/18 14:36 Flomax PO 0.4 mg QDAY CINDA Administration Thiamine HCl 100 mg 06/04/18 10:00 Vitamin B-1 PO QDAY CINDA
--- NOTE | 2018-06-04 11:48 | Progress Note ---
Assessment and Plan Assessment and plan: 72-year-old man with history of alcoholism and likely dementia which has not been diagnosed with suspected by family. The patient's and he was dependent on her past the week 2 weeks prior. He was home by himself, is apparently drinking heavily not eating and not. He had been confused per his son and neighbors. His son and asked him to go to the ER he called the EMS. The patient was found to have a very low sodium, folic acid agitated and confused. CT head no acute findings Chest x-ray no acute findings -The patient is on [facility] protocol for alcohol withdrawal Continue saline IV fluid, replace potassium -UTI suspected, and ruled out via neg urine cx he received Steroids and nebulizers and pulmonary consults. -Dietitian consult was done and mentation is improved Diagnoses Alcohol dependence and withdrawal Acute metabolic encephalopathy Severe hyponatremia Hypercholesteremia Beer potomania Moderate malnutrition COPD exacerbation Tobacco abuse, Sotero every day smoker Acute hypoxic respiratory failure Dementia History Interval history: Patient has been confused and agitated he has been noted tried to climb out of bed multiple times Review of systems Constitutional: No fevers, no malaise, no joint pains CVS: No chest pain, no orthopnea, no dyspnea on exertion, no pedal edema GI: No abdominal pain, no diarrhea, no vomiting, no constipation Respiratory: He has had wheezing and shortness of breath Hospitalist Physical - Physical exam Narrative exam: General.: , nontoxic HEENT: Moist mucous membranes, extraocular muscles intact, no lymphadenopathy Neck: supple Cardiac: S1-S2 heard Lungs: Decreased air entry, wheezing throughout Abdomen: soft , nontender, nondistended, bowel sounds positive Extremities: no edema clubbing or cyanosis Skin: no rash or lesions Neurologic: Confused, moves all extremities Psych: Agitated - Constitutional Vitals: Temp Pulse Resp BP Pulse Ox 97.7 F 70 13 131/68 98 06/04/18 04:00 06/04/18 09:00 06/04/18 09:00 06/03/18 15:38 06/04/18 08:48 General appearance: Present: mild distress Results - Labs CBC & Chem 7: 06/04/18 09:47 06/06/18 05:25 Labs: Laboratory Last Values WBC 5.3 K/mm3 (4.5-11.0) 06/04/18 09:47 RBC 3.81 M/mm3 (3.65-5.03) 06/04/18 09:47 Hgb 12.4 gm/dl (11.8-15.2) 06/04/18 09:47 Hct 36.1 % (35.5-45.6) 06/04/18 09:47 MCV 95 fl (84-94) H 06/04/18 09:47 MCH 33 pg (28-32) H 06/04/18 09:47 MCHC 34 % (32-34) 06/04/18 09:47 RDW 12.8 % (13.2-15.2) L 06/04/18 09:47 Plt Count 220 K/mm3 (140-440) 06/04/18 09:47 [place] % (Auto) Assistant Teacher Primary 06/02/18 21:25 Add Manual Diff Complete 06/04/18 09:47 Total Counted 100 06/04/18 09:47 Seg Neuts % (Manual) 92.0 % (40.0-70.0) H 06/04/18 09:47 Band Neutrophils % 0 % 06/04/18 09:47 Lymphocytes % (Manual) 5.0 % (13.4-35.0) L 06/04/18 09:47 Reactive Lymphs % (Man) 0 % 06/04/18 09:47 Monocytes % (Manual) 3.0 % (0.0-7.3) 06/04/18 09:47 Eosinophils % (Manual) 0 % (0.0-4.3) 06/04/18 09:47 Basophils % (Manual) 0 % (0.0-1.8) 06/04/18 09:47 Metamyelocytes % 0 % 06/04/18 09:47 Myelocytes % 0 % 06/04/18 09:47 Promyelocytes % 0 % 06/04/18 09:47 Blast Cells % 0 % 06/04/18 09:47 Nucleated RBC % Not Reportable 06/04/18 09:47 Seg Neutrophils # Man 4.9 K/mm3 (1.8-7.7) 06/04/18 09:47 Band Neutrophils # 0.0 K/mm3 06/04/18 09:47 Lymphocytes # (Manual) 0.3 K/mm3 (1.2-5.4) L 06/04/18 09:47 Abs React Lymphs (Man) 0.0 K/mm3 06/04/18 09:47 Monocytes # (Manual) 0.2 K/mm3 (0.0-0.8) 06/04/18 09:47 Eosinophils # (Manual) 0.0 K/mm3 (0.0-0.4) 06/04/18 09:47 Basophils # (Manual) 0.0 K/mm3 (0.0-0.1) 06/04/18 09:47 Metamyelocytes # 0.0 K/mm3 06/04/18 09:47 Myelocytes # 0.0 K/mm3 06/04/18 09:47 Promyelocytes # 0.0 K/mm3 06/04/18 09:47 Blast Cells # 0.0 K/mm3 06/04/18 09:47 WBC Morphology Not Reportable 06/04/18 09:47 Hypersegmented Neuts Not Reportable 06/04/18 09:47 Hyposegmented Neuts Not Reportable 06/04/18 09:47 Hypogranular Neuts Not Reportable 06/04/18 09:47 Smudge Cells Not Reportable 06/04/18 09:47 Toxic Granulation 1+ 06/04/18 09:47 Toxic Vacuolation Not Reportable 06/04/18 09:47 Dohle Bodies Not Reportable 06/04/18 09:47 Pelger-Huet Anomaly Not Reportable 06/04/18 09:47 Dashawn Rods Not Reportable 06/04/18 09:47 Platelet Estimate Consistent w auto 06/04/18 09:47 Clumped Platelets Not Reportable 06/04/18 09:47 Plt Clumps, EDTA Not Reportable 06/04/18 09:47 Large Platelets Not Reportable 06/04/18 09:47 Giant Platelets Not Reportable 06/04/18 09:47 Platelet Satelliting Not Reportable 06/04/18 09:47 Plt Morphology Comment Not Reportable 06/04/18 09:47 RBC Morphology Normal 06/04/18 09:47 Dimorphic RBCs Not Reportable 06/04/18 09:47 Polychromasia Not Reportable 06/04/18 09:47 Hypochromasia Not Reportable 06/04/18 09:47 Poikilocytosis Not Reportable 06/04/18 09:47 Anisocytosis Not Reportable 06/04/18 09:47 Microcytosis Not Reportable 06/04/18 09:47 Macrocytosis Not Reportable 06/04/18 09:47 Spherocytes Not Reportable 06/04/18 09:47 Pappenheimer Bodies Not Reportable 06/04/18 09:47 Sickle Cells Not Reportable 06/04/18 09:47 Target Cells Not Reportable 06/04/18 09:47 Tear Drop Cells Not Reportable 06/04/18 09:47 Ovalocytes Not Reportable 06/04/18 09:47 Helmet Cells Not Reportable 06/04/18 09:47 Olivier-Ogden Bodies Not Reportable 06/04/18 09:47 [place] Rings Not Reportable 06/04/18 09:47 Mic Cells Not Reportable 06/04/18 09:47 Bite Cells Not Reportable 06/04/18 09:47 Crenated Cell Not Reportable 06/04/18 09:47 Elliptocytes Not Reportable 06/04/18 09:47 Acanthocytes (Spur) Not Reportable 06/04/18 09:47 Rouleaux Not Reportable 06/04/18 09:47 Hemoglobin C Crystals Not Reportable 06/04/18 09:47 Schistocytes Not Reportable 06/04/18 09:47 Malaria parasites Not Reportable 06/04/18 09:47 Rajesh Bodies Not Reportable 06/04/18 09:47 Hem Pathologist Commnt No 06/04/18 09:47 Sodium 123 mmol/L (137-145) L 06/04/18 09:47 Potassium 4.0 mmol/L (3.6-5.0) 06/04/18 09:47 Chloride 85.2 mmol/L (98-107) L 06/04/18 09:47 Carbon Dioxide 28 mmol/L (22-30) 06/04/18 09:47 Anion Gap 14 mmol/L 06/04/18 09:47 BUN 5 mg/dL (9-20) L 06/04/18 09:47 Creatinine 0.5 mg/dL (0.8-1.5) L 06/04/18 09:47 Estimated GFR > 60 ml/min 06/04/18 09:47 BUN/Creatinine Ratio 10 % 06/04/18 09:47 Glucose 129 mg/dL (75-100) H 06/04/18 09:47 POC Glucose 93 (70-105) 06/02/18 21:18 Osmolality 249 Mosm/kg 06/03/18 20:45 Calcium 8.3 mg/dL (8.4-10.2) L 06/04/18 09:47 Phosphorus 3.90 mg/dL (2.5-4.5) 06/04/18 09:47 Magnesium 1.80 mg/dL (1.7-2.3) 06/04/18 09:47 Total Bilirubin 0.40 mg/dL (0.1-1.2) 06/04/18 04:39 Direct Bilirubin < 0.2 mg/dL (0-0.2) 06/04/18 04:39 Indirect Bilirubin 0.2 mg/dL 06/04/18 04:39 AST 31 units/L (5-40) 06/04/18 04:39 ALT 26 units/L (7-56) 06/04/18 04:39 Alkaline Phosphatase 66 units/L (35-129) 06/04/18 04:39 Ammonia 23.0 umol/L (25-60) L 06/03/18 14:41 Total Creatine Kinase 420 units/L (55-170) H 06/02/18 21:25 Troponin T < 0.010 ng/mL (0.00-0.029) 06/02/18 21:25 NT-Pro-B Natriuret Pep 379.8 pg/mL (0-900) 06/02/18 21:25 Total Protein 5.5 g/dL (6.3-8.2) L 06/04/18 04:39 Albumin 3.1 g/dL (3.9-5) L 06/04/18 04:39 Albumin/Globulin Ratio 1.3 % 06/04/18 04:39 TSH 1.100 mlU/mL (0.270-4.200) 06/03/18 20:45 Urine Color Yellow (Yellow) 06/02/18 22:03 Urine Turbidity Slightly-cloudy (Clear) 06/02/18 22:03 Urine pH 6.0 (5.0-7.0) 06/02/18 22:03 Ur Specific [place] 1.004 (1.003-1.030) 06/02/18 22:03 Urine Protein <15 mg/dl mg/dL (Negative) 06/02/18 22:03 Urine Glucose (UA) Neg mg/dL (Negative) 06/02/18 22:03 Urine Ketones Neg mg/dL (Negative) 06/02/18 22:03 Urine Blood Sm (Negative) 06/02/18 22:03 Urine Nitrite Neg (Negative) 06/02/18 22:03 Urine Bilirubin Neg (Negative) 06/02/18 22:03 Urine Urobilinogen 2.0 mg/dL (<2.0) 06/02/18 22:03 Ur Leukocyte Esterase Lg (Negative) 06/02/18 22:03 Urine WBC (Auto) 24.0 /HPF (0.0-6.0) H 06/02/18 22:03 Urine RBC (Auto) 3.0 /HPF (0.0-6.0) 06/02/18 22:03 U Epithel Cells (Auto) < 1.0 /HPF (0-13.0) 06/02/18 22:03 Urine Bacteria (Auto) 1+ /HPF (Negative) 06/02/18 22:03 Urine Osmolality 203 Mosm/kg 06/02/18 22:02 Urine Sodium 20 mmol/L 06/02/18 22:02 Active Medications - Current Medications Current Medications: Generic Name Dose Route Start Last Admin Trade Name Freq PRN Reason Stop Dose Admin Acetaminophen 650 mg 06/03/18 00:05 Tylenol PO Q4H PRN Pain MILD(1-3)/Fever >100.5/CHANCE Albuterol 2.5 mg 06/03/18 13:11 06/03/18 15:01 Proventil IH 2.5 mg Q4HRT PRN Administration Shortness Of Breath Albuterol/Ipratropium 1 ampul 06/03/18 16:00 06/04/18 08:45 Duoneb *Not For Prn Use* IH 1 ampul Q6HRT CINDA Administration Arformoterol Tartrate 15 mcg 06/03/18 20:00 06/04/18 08:45 Brovana Nebu IH 15 mcg Q12HRT CINDA Administration Budesonide 0.5 mg 06/03/18 20:00 06/04/18 08:46 Pulmicort IH 0.5 mg Q12HRT CINDA Administration Enoxaparin Sodium 40 mg 06/03/18 10:00 06/04/18 11:01 Lovenox SUB-Q 40 mg QDAY@1000 CINDA Administration Folic Acid 1 mg 06/04/18 10:00 06/04/18 11:01 Folvite PO 1 mg QDAY CINDA Administration Sodium Chloride 1,000 mls @ 75 mls/hr 06/03/18 01:00 06/04/18 06:33 Nacl 0.9% 1000 Ml IV 75 mls/hr DIRECT CINDA Administration Ceftriaxone Sodium 1 gm in 50 mls @ 100 mls/hr 06/03/18 02:04 06/04/18 06:32 Rocephin/Ns 1 Gm/50 Ml IV 100 mls/hr Q24HR@0600 CINDA Administration Protocol Lorazepam 2 mg 06/03/18 14:00 Ativan PO Q1H PRN CIWA-Ar 8-15 Lorazepam 4 mg 06/03/18 14:00 Ativan IV Q1H PRN CIWA-Ar 16-25 Lorazepam 4 mg 06/03/18 14:00 Ativan IV Q15MIN PRN CIWA-Ar >25 Lorazepam 1 mg 06/03/18 14:01 06/03/18 14:36 Ativan IV 1 mg Q4H PRN Administration Agitation Lorazepam 1 mg 06/03/18 14:01 Ativan PO Q4H PRN Agitation Methylprednisolone Sodium Succinate 125 mg 06/03/18 16:00 06/04/18 06:30 Solu-Medrol IV 125 mg Q8HR CINDA Administration Multivitamins 5 ml 06/04/18 10:00 06/04/18 11:00 Centrum Liq PO 5 ml QDAY CINDA Administration Ondansetron HCl 4 mg 06/03/18 00:05 Zofran IV Q8H PRN Nausea And Vomiting Pantoprazole Sodium 40 mg 06/03/18 17:00 06/04/18 11:01 Protonix IV 40 mg QDAY CINDA Administration Sodium Chloride 10 ml 06/03/18 10:00 06/04/18 11:03 Sodium Chloride Flush Syringe 10 Ml IV 10 ml BID CINDA Administration Sodium Chloride 10 ml 06/03/18 00:05 Sodium Chloride Flush Syringe 10 Ml IV PRN PRN LINE FLUSH Sodium Chloride 1 gm 06/03/18 20:00 06/03/18 22:11 Sodium Chloride PO 1 gm TID CINDA Administration Tamsulosin HCl 0.4 mg 06/03/18 12:00 06/03/18 14:36 Flomax PO 0.4 mg QDAY CINDA Administration Thiamine HCl 100 mg 06/04/18 10:00 Vitamin B-1 PO QDAY CINDA
--- NOTE | 2018-06-04 13:45 | Consultation ---
History of Present Illness Consult date: 06/04/18 Reason for consult: other (Confusion, possible aspiration) History of present illness: PULMONARY AND CRITICAL CARE CONSULTATION Dr. Cooney, thank you for asking us to participate in the care of this patient. Patient is a 72-year-old male with history of hypertension and CHF who presents to the ER with complaints of weakness, and difficulty urinating. Patient states that his 2 weeks ago and is currently living alone, he has a son in another state, patient complains of some confusion and difficulty remembering specific events and mild disorientation. Patient's laboratory values showed a sodium level of 109, his chloride was 71.3. Patient also had a CT scan of the brain and a chest x-ray which were negative, nephrology was consulted and he is being admitted for further evaluation of his low sodium. Patient still confused, not following verbal commands well. He is awake on 2L O2, O2 saturation is 98%. Unable to get any history from the patient. No family member with him at this time. Patient has history of alcohol abuse. No smoking or drug history is not known at this time. Patient allergic to diphenhydramine HCl. Past History Past Medical History: hypertension Past Surgical History: No surgical history Social history: no significant social history, , Lives alone, alcohol abuse Family history: no significant family history Medications and Allergies Allergies Allergy/AdvReac Type Severity Reaction Status Date / Time diphenhydramine HCl Allergy Unknown Verified 09/24/14 11:56 [From Benadryl] Home Medications Medication Instructions Recorded Confirmed Last Taken Type Albuterol *Only Ed* [Proventil 2.5 mg IH Q4HRT PRN #1 nebu 10/03/14 06/03/18 Unknown Rx 0.5% NEBS] Folic Acid [Folvite] 1 mg PO QDAY #30 tablet 10/03/14 06/03/18 Unknown Rx Furosemide [Lasix TAB] 20 mg PO QDAY #30 tablet 10/03/14 06/03/18 Unknown Rx Metoprolol [Lopressor TAB] 12.5 mg PO BID #60 tablet 10/03/14 06/03/18 Unknown Rx Multivitamins Liq [Multiple 5 ml PO QDAY 30 Days oral.liqd 10/03/14 06/03/18 Unknown Rx Vitamin Liq (Theragran)] Thiamine [Vitamin B-1] 100 mg PO QDAY #30 tablet 10/03/14 06/03/18 Unknown Rx Active Meds: Active Medications Acetaminophen (Tylenol) 650 mg PO Q4H PRN PRN Reason: Pain MILD(1-3)/Fever >100.5/CHANCE Albuterol (Proventil) 2.5 mg IH Q4HRT PRN PRN Reason: Shortness Of Breath Last Admin: 06/03/18 15:01 Dose: 2.5 mg Documented by: Albuterol/Ipratropium (Duoneb *Not For Prn Use*) 1 ampul IH Q6HRT [facility] Last Admin: 06/04/18 08:45 Dose: 1 ampul Documented by: Arformoterol Tartrate (Brovana Nebu) 15 mcg IH Q12HRT [facility] Last Admin: 06/04/18 08:45 Dose: 15 mcg Documented by: Budesonide (Pulmicort) 0.5 mg IH Q12HRT [facility] Last Admin: 06/04/18 08:46 Dose: 0.5 mg Documented by: Enoxaparin Sodium (Lovenox) 40 mg SUB-Q QDAY@1000 [facility] Last Admin: 06/04/18 11:01 Dose: 40 mg Documented by: Folic Acid (Folvite) 1 mg PO QDAY [facility] Last Admin: 06/04/18 11:01 Dose: 1 mg Documented by: Sodium Chloride (Nacl 0.9% 1000 Ml) 1,000 mls @ 75 mls/hr IV DIRECT [facility] Last Admin: 06/04/18 06:33 Dose: 75 mls/hr Documented by: Ceftriaxone Sodium (Rocephin/Ns 1 Gm/50 Ml) 1 gm in 50 mls @ 100 mls/hr IV Q24HR@0600 [facility]; Protocol Last Admin: 06/04/18 06:32 Dose: 100 mls/hr Documented by: Lorazepam (Ativan) 2 mg PO Q1H PRN PRN Reason: CIWA-Ar 8-15 Lorazepam (Ativan) 4 mg IV Q1H PRN PRN Reason: CIWA-Ar 16-25 Lorazepam (Ativan) 4 mg IV Q15MIN PRN PRN Reason: CIWA-Ar >25 Lorazepam (Ativan) 1 mg IV Q4H PRN PRN Reason: Agitation Last Admin: 06/03/18 14:36 Dose: 1 mg Documented by: Lorazepam (Ativan) 1 mg PO Q4H PRN PRN Reason: Agitation Methylprednisolone Sodium Succinate (Solu-Medrol) 125 mg IV Q8HR [facility] Last Admin: 06/04/18 06:30 Dose: 125 mg Documented by: Multivitamins (Centrum Liq) 5 ml PO QDAY [facility] Last Admin: 06/04/18 11:00 Dose: 5 ml Documented by: Ondansetron HCl (Zofran) 4 mg IV Q8H PRN PRN Reason: Nausea And Vomiting Pantoprazole Sodium (Protonix) 40 mg IV QDAY [facility] Last Admin: 06/04/18 11:01 Dose: 40 mg Documented by: Sodium Chloride (Sodium Chloride Flush Syringe 10 Ml) 10 ml IV BID [facility] Last Admin: 06/04/18 11:03 Dose: 10 ml Documented by: Sodium Chloride (Sodium Chloride Flush Syringe 10 Ml) 10 ml IV PRN PRN PRN Reason: LINE FLUSH Sodium Chloride (Sodium Chloride) 1 gm PO TID [facility] Last Admin: 06/03/18 22:11 Dose: 1 gm Documented by: Tamsulosin HCl (Flomax) 0.4 mg PO QDAY [facility] Last Admin: 06/03/18 14:36 Dose: 0.4 mg Documented by: Thiamine HCl (Vitamin B-1) 100 mg PO QDAY [facility] Review of Systems ROS unobtainable: due to mental status All systems: negative Physical Examination Vital signs: Vital Signs Temp Pulse Resp BP Pulse Ox 98.2 F 79 16 140/85 99 06/02/18 20:56 06/02/18 20:56 06/02/18 20:56 06/02/18 20:56 06/02/18 20:56 General appearance: no acute distress, other (confused) Eyes: non-icteric ENT: oropharynx moist Neck: supple, no JVD Effort: normal Ascultation: Bilateral: other (prolonged expiratory phase) Cardiovascular: regular rate and rhythm Gastrointestinal: normoactive bowel sounds, soft, non-tender Integumentary: normal Extremities: no cyanosis, no edema Musculoskeletal: no deformities Gait: other (cannot assess at this time) non-focal exam, pupils equal and round, CN II-XII normal other (confused) Results - Laboratory Findings CBC and BMP: 06/04/18 09:47 06/04/18 09:47 Abnormal lab findings: Abnormal Labs 06/02/18 06/02/18 06/02/18 21:25 21:25 22:03 MCV MCH 33 H MCHC 35 H RDW 12.8 L Seg Neuts % (Manual) 80.0 H Lymphocytes % (Manual) Lymphocytes # (Manual) 0.8 L Sodium 109 L* Potassium Chloride 71.3 L BUN 6 L Creatinine 0.5 L Glucose Calcium Ammonia Total Creatine Kinase 420 H Total Protein Albumin Urine WBC (Auto) 24.0 H 06/03/18 06/03/18 06/03/18 00:15 06:27 09:42 MCV MCH MCHC RDW Seg Neuts % (Manual) Lymphocytes % (Manual) Lymphocytes # (Manual) Sodium 113 L* 118 L* 116 L* Potassium 3.5 L 3.5 L Chloride 77.2 L 79.1 L 78.2 L BUN 5 L 4 L 4 L Creatinine 0.4 L 0.5 L 0.4 L Glucose Calcium 8.2 L 7.9 L 8.1 L Ammonia Total Creatine Kinase Total Protein Albumin Urine WBC (Auto) 06/03/18 06/03/18 06/03/18 14:41 14:41 20:45 MCV MCH MCHC RDW Seg Neuts % (Manual) Lymphocytes % (Manual) Lymphocytes # (Manual) Sodium 114 L* 118 L* Potassium 3.1 L Chloride 76.3 L 79.7 L BUN 4 L 3 L Creatinine 0.5 L 0.4 L Glucose Calcium 8.1 L 8.3 L Ammonia 23.0 L Total Creatine Kinase Total Protein Albumin Urine WBC (Auto) 06/04/18 06/04/18 06/04/18 04:39 09:47 09:47 MCV 95 H MCH 33 H MCHC RDW 12.8 L Seg Neuts % (Manual) 92.0 H Lymphocytes % (Manual) 5.0 L Lymphocytes # (Manual) 0.3 L Sodium 123 L Potassium Chloride 85.2 L BUN 5 L Creatinine 0.5 L Glucose 129 H Calcium 8.3 L Ammonia Total Creatine Kinase Total Protein 5.5 L Albumin 3.1 L Urine WBC (Auto) - Diagnostic Findings Chest x-ray: report reviewed (Reported negative.), image reviewed Assessment and Plan atient is a 72-year-old male with history of hypertension and CHF who presents to the ER with complaints of weakness, and difficulty urinating. Patient states that his 2 weeks ago and is currently living alone, he has a son in another state, patient complains of some confusion and difficulty remembering specific events and mild disorientation. Patient's laboratory values showed a sodium level of 109, his chloride was 71.3. Patient also had a CT scan of the brain and a chest x-ray which were negative, nephrology was consulted and he is being admitted for further evaluation of his low sodium. Patient still confused, not following verbal commands well. He is awake on 2L O2, O2 saturation is 98%. Unable to get any history from the patient. No family member with him at this time. Patient has history of alcohol abuse. No smoking o r drug history is not known at this time. Patient allergic to diphenhydramine HCl. - Patient Problems (1) COPD exacerbation Current Visit: No Status: Acute Plan to address problem: According to the history, possible COPD. Patient on 2L O2 Albuterol/Atrovent aerosol treatments q6hrs Continue solumedrol Continue Lovenox Continue Protonix Continue Ceftriaxone recommend to add azithromycin (2) Acute hyponatremia Current Visit: Yes Status: Acute Plan to address problem: management as per nephrology sodium improved to 123 (3) Altered mental status Current Visit: Yes Status: Acute Plan to address problem: Watch altered mental status, may improve once sodium normalizes. Also watch for DTs. (4) Alcohol abuse Current Visit: No Status: Acute Plan to address problem: Watch for DTs.
[2018-06-04] MEDS: FLOMAX PO SCH (15:01)
[2018-06-04] MEDS: VITAMIN B-1 PO SCH (15:02)
[2018-06-04] MEDS: TYLENOL PO PRN (22:18)
[2018-06-04] MEDS: ATIVAN IV PRN (23:47)
[2018-06-05] MEDS: DUONEB *Not for PRN Use IH SCH ×4 (02:00→21:03)
[2018-06-05] MEDS: ROCEPHIN/NS 1 GM/50 ML 1 GM/50 ML BAG IV SCH (05:02)
[2018-06-05] MEDS: SOLU-Medrol IV SCH ×4 (05:03→22:20)
[2018-06-05 05:05] LABS: BUN/Creatinine Ratio 16; Blood Urea Nitrogen 8 mg/dL (9-20); Calcium 8.2 mg/dL (8.4-10.2); Hemolysis Index 5
[2018-06-05] MEDS: SODIUM CHLORIDE PO SCH ×3 (08:11→22:20)
[2018-06-05] MEDS: BROVANA NEBU IH SCH ×2 (08:56→21:02)
[2018-06-05] MEDS: PULMICORT IH SCH ×2 (08:57→21:02)
--- NOTE | 2018-06-05 09:27 | Progress Note ---
Assessment and Plan Impression: * Symptomatic hyponatremia --UOsm 203, Felix 20 --TSH wnl * Urinary tract infection * Hypertension * Alcohol abuse Plan: * SNa improved * Continue NaCl tablets * NS for gentle hydration * Strict I/O * Empiric abx per primary * AM labs Subjective Date of service: 06/05/18 Interval history: Patient has no complaints today Objective - Vital Signs Vital signs: Vital Signs - 12hr 06/04/18 06/04/18 06/04/18 21:31 21:41 21:51 Temperature Pulse Rate 71 70 68 Pulse Rate [ Anterior Bilateral Throughout] Pulse Rate [ From Monitor] Respiratory 16 14 15 Rate Respiratory Rate [Anterior Bilateral Throughout] Blood Pressure 103/55 94/49 94/49 O2 Sat by Pulse 92 92 91 Oximetry 06/04/18 06/04/18 06/04/18 22:01 22:11 22:21 Temperature Pulse Rate 93 H 68 71 Pulse Rate [ Anterior Bilateral Throughout] Pulse Rate [ From Monitor] Respiratory 19 15 16 Rate Respiratory Rate [Anterior Bilateral Throughout] Blood Pressure 94/49 94/49 94/49 O2 Sat by Pulse 93 95 95 Oximetry 06/04/18 06/04/18 06/04/18 22:31 22:41 22:51 Temperature Pulse Rate 92 H 83 87 Pulse Rate [ Anterior Bilateral Throughout] Pulse Rate [ From Monitor] Respiratory 15 16 14 Rate Respiratory Rate [Anterior Bilateral Throughout] Blood Pressure 119/53 119/53 119/53 O2 Sat by Pulse 92 95 94 Oximetry 06/04/18 06/04/18 06/04/18 23:01 23:11 23:21 Temperature Pulse Rate 73 69 70 Pulse Rate [ Anterior Bilateral Throughout] Pulse Rate [ From Monitor] Respiratory 14 13 13 Rate Respiratory Rate [Anterior Bilateral Throughout] Blood Pressure 119/53 119/53 119/53 O2 Sat by Pulse 95 94 95 Oximetry 06/04/18 06/04/18 06/04/18 23:31 23:41 23:51 Temperature Pulse Rate 70 69 86 Pulse Rate [ Anterior Bilateral Throughout] Pulse Rate [ From Monitor] Respiratory 11 L 12 18 Rate Respiratory Rate [Anterior Bilateral Throughout] Blood Pressure 119/53 119/53 119/53 O2 Sat by Pulse 93 95 94 Oximetry 06/05/18 06/05/18 06/05/18 00:00 00:11 00:21 Temperature 98.2 F Pulse Rate 85 72 70 Pulse Rate [ Anterior Bilateral Throughout] Pulse Rate [ 70 From Monitor] Respiratory 16 13 14 Rate Respiratory Rate [Anterior Bilateral Throughout] Blood Pressure 121/61 121/61 121/61 O2 Sat by Pulse 94 93 93 Oximetry 06/05/18 06/05/18 06/05/18 00:30 00:41 00:51 Temperature Pulse Rate 68 68 83 Pulse Rate [ Anterior Bilateral Throughout] Pulse Rate [ From Monitor] Respiratory 12 14 15 Rate Respiratory Rate [Anterior Bilateral Throughout] Blood Pressure 121/61 121/61 121/61 O2 Sat by Pulse 93 93 93 Oximetry 06/05/18 06/05/18 06/05/18 01:01 01:11 01:21 Temperature Pulse Rate 69 69 65 Pulse Rate [ Anterior Bilateral Throughout] Pulse Rate [ From Monitor] Respiratory 14 18 16 Rate Respiratory Rate [Anterior Bilateral Throughout] Blood Pressure 121/61 121/61 121/61 O2 Sat by Pulse 93 93 94 Oximetry 06/05/18 06/05/18 06/05/18 01:31 01:41 01:51 Temperature Pulse Rate 78 68 65 Pulse Rate [ Anterior Bilateral Throughout] Pulse Rate [ From Monitor] Respiratory 12 16 15 Rate Respiratory Rate [Anterior Bilateral Throughout] Blood Pressure 121/61 121/61 121/61 O2 Sat by Pulse 93 94 95 Oximetry 06/05/18 06/05/18 06/05/18 02:00 02:11 02:21 Temperature Pulse Rate 69 76 75 Pulse Rate [ Anterior Bilateral Throughout] Pulse Rate [ From Monitor] Respiratory 14 16 23 Rate Respiratory Rate [Anterior Bilateral Throughout] Blood Pressure 121/61 121/61 121/61 O2 Sat by Pulse 95 92 94 Oximetry 06/05/18 06/05/18 06/05/18 02:31 02:41 02:51 Temperature Pulse Rate 77 64 64 Pulse Rate [ Anterior Bilateral Throughout] Pulse Rate [ From Monitor] Respiratory 14 17 16 Rate Respiratory Rate [Anterior Bilateral Throughout] Blood Pressure 121/61 121/61 121/61 O2 Sat by Pulse 94 95 96 Oximetry 06/05/18 06/05/18 06/05/18 03:01 03:11 03:21 Temperature Pulse Rate 65 70 69 Pulse Rate [ Anterior Bilateral Throughout] Pulse Rate [ From Monitor] Respiratory 13 12 15 Rate Respiratory Rate [Anterior Bilateral Throughout] Blood Pressure 121/61 121/61 121/61 O2 Sat by Pulse 95 94 95 Oximetry 04/06/05/18 06/05/18 03:31 03:41 03:51 Temperature Pulse Rate 67 68 63 Pulse Rate [ Anterior Bilateral Throughout] Pulse Rate [ From Monitor] Respiratory 15 12 15 Rate Respiratory Rate [Anterior Bilateral Throughout] Blood Pressure 121/61 121/61 121/61 O2 Sat by Pulse 95 95 94 Oximetry 06/05/18 06/05/18 06/05/18 04:00 04:01 04:11 Temperature 97.7 F Pulse Rate 65 63 Pulse Rate [ Anterior Bilateral Throughout] Pulse Rate [ 64 From Monitor] Respiratory 16 14 18 Rate Respiratory Rate [Anterior Bilateral Throughout] Blood Pressure 121/55 121/55 O2 Sat by Pulse 95 94 94 Oximetry 06/05/18 06/05/18 06/05/18 04:21 04:31 04:41 Temperature Pulse Rate 62 73 70 Pulse Rate [ Anterior Bilateral Throughout] Pulse Rate [ From Monitor] Respiratory 13 13 16 Rate Respiratory Rate [Anterior Bilateral Throughout] Blood Pressure 121/55 121/55 121/55 O2 Sat by Pulse 94 94 94 Oximetry 06/05/18 06/05/18 06/05/18 04:51 05:00 05:01 Temperature Pulse Rate 79 90 90 Pulse Rate [ Anterior Bilateral Throughout] Pulse Rate [ From Monitor] Respiratory 17 17 Rate Respiratory Rate [Anterior Bilateral Throughout] Blood Pressure 121/55 121/55 O2 Sat by Pulse 94 93 Oximetry 06/05/18 06/05/18 06/05/18 05:07 05:11 05:21 Temperature Pulse Rate 90 65 66 Pulse Rate [ Anterior Bilateral Throughout] Pulse Rate [ From Monitor] Respiratory 15 13 Rate Respiratory Rate [Anterior Bilateral Throughout] Blood Pressure 121/55 121/55 O2 Sat by Pulse 95 94 Oximetry 06/05/18 06/05/18 06/05/18 05:31 05:41 05:51 Temperature Pulse Rate 65 63 65 Pulse Rate [ Anterior Bilateral Throughout] Pulse Rate [ From Monitor] Respiratory 14 15 16 Rate Respiratory Rate [Anterior Bilateral Throughout] Blood Pressure 121/55 121/55 121/55 O2 Sat by Pulse 94 95 94 Oximetry 06/05/18 06/05/18 06/05/18 06:01 06:11 06:21 Temperature Pulse Rate 66 64 70 Pulse Rate [ Anterior Bilateral Throughout] Pulse Rate [ From Monitor] Respiratory 17 15 14 Rate Respiratory Rate [Anterior Bilateral Throughout] Blood Pressure 121/55 121/55 121/55 O2 Sat by Pulse 93 93 94 Oximetry 06/05/18 06/05/18 06/05/18 06:31 06:41 06:50 Temperature Pulse Rate 81 62 61 Pulse Rate [ Anterior Bilateral Throughout] Pulse Rate [ From Monitor] Respiratory 11 L 13 14 Rate Respiratory Rate [Anterior Bilateral Throughout] Blood Pressure 121/55 121/55 121/55 O2 Sat by Pulse 90 94 94 Oximetry 06/05/18 06/05/18 06/05/18 07:01 07:11 07:20 Temperature Pulse Rate 63 62 65 Pulse Rate [ Anterior Bilateral Throughout] Pulse Rate [ From Monitor] Respiratory 14 14 13 Rate Respiratory Rate [Anterior Bilateral Throughout] Blood Pressure 121/55 121/55 121/55 O2 Sat by Pulse 94 95 92 Oximetry 06/05/18 06/05/18 06/05/18 07:30 07:40 07:50 Temperature Pulse Rate 91 H 68 65 Pulse Rate [ Anterior Bilateral Throughout] Pulse Rate [ From Monitor] Respiratory 15 19 15 Rate Respiratory Rate [Anterior Bilateral Throughout] Blood Pressure 121/55 121/55 O2 Sat by Pulse 89 94 95 Oximetry 06/05/18 06/05/18 06/05/18 08:00 08:10 08:20 Temperature 97.6 F Pulse Rate 100 H 64 64 Pulse Rate [ 88 Anterior Bilateral Throughout] Pulse Rate [ 89 From Monitor] Respiratory 15 17 16 Rate Respiratory 15 Rate [Anterior Bilateral Throughout] Blood Pressure 121/55 120/61 120/61 O2 Sat by Pulse 92 96 95 Oximetry 06/05/18 06/05/18 06/05/18 08:30 08:40 08:52 Temperature Pulse Rate 68 62 Pulse Rate [ Anterior Bilateral Throughout] Pulse Rate [ From Monitor] Respiratory 13 16 Rate Respiratory Rate [Anterior Bilateral Throughout] Blood Pressure 120/61 120/61 O2 Sat by Pulse 94 95 94 Oximetry 06/05/18 09:16 Temperature Pulse Rate Pulse Rate [ 79 Anterior Bilateral Throughout] Pulse Rate [ From Monitor] Respiratory Rate Respiratory 18 Rate [Anterior Bilateral Throughout] Blood Pressure O2 Sat by Pulse Oximetry - General Appearance General appearance: well-developed, well-nourished EENT: ATNC Respiratory: Present: Clear to Ascultation Cardiology: regular, S1S2 Gastrointestinal: normal, no tenderness, no distended Integumentary: no rash, warm and dry Neurologic: no focal deficit, alert and oriented x3 Psychiatric: cooperative - Lab 06/04/18 09:47 06/05/18 04:29 Most recent lab results Calcium 8.2 mg/dL (8.4-10.2) L 06/05/18 04:29 Phosphorus 3.90 mg/dL (2.5-4.5) 06/04/18 09:47 Magnesium 1.80 mg/dL (1.7-2.3) 06/04/18 09:47 Urine Sodium 20 mmol/L 06/02/18 22:02 Medications & Allergies - Medications Allergies/Adverse Reactions: Allergies diphenhydramine HCl [From Benadryl] Allergy (Verified 09/24/14 11:56) Unknown HALLUCINATIONS Home Medications: Home Medications Medication Instructions Recorded Confirmed Last Taken Type Albuterol *Only Ed* [Proventil 2.5 mg IH Q4HRT PRN #1 nebu 10/03/14 06/03/18 Unknown Rx 0.5% NEBS] Folic Acid [Folvite] 1 mg PO QDAY #30 tablet 10/03/14 06/03/18 Unknown Rx Furosemide [Lasix TAB] 20 mg PO QDAY #30 tablet 10/03/14 06/03/18 Unknown Rx Metoprolol [Lopressor TAB] 12.5 mg PO BID #60 tablet 10/03/14 06/03/18 Unknown Rx Multivitamins Liq [Multiple 5 ml PO QDAY 30 Days oral.liqd 10/03/14 06/03/18 Unknown Rx Vitamin Liq (Theragran)] Thiamine [Vitamin B-1] 100 mg PO QDAY #30 tablet 10/03/14 06/03/18 Unknown Rx Active Medications: Generic Name Dose Route Start Last Admin Trade Name Freq PRN Reason Stop Dose Admin Acetaminophen 650 mg 06/03/18 00:05 06/04/18 22:18 Tylenol PO 650 mg Q4H PRN Administration Pain MILD(1-3)/Fever >100.5/CHANCE Albuterol 2.5 mg 06/03/18 13:11 06/03/18 15:01 Proventil IH 2.5 mg Q4HRT PRN Administration Shortness Of Breath Albuterol/Ipratropium 1 ampul 06/03/18 16:00 06/05/18 08:56 Duoneb *Not For Prn Use* IH 1 ampul Q6HRT CINDA Administration Arformoterol Tartrate 15 mcg 06/03/18 20:00 06/05/18 08:56 Brovana Nebu IH 15 mcg Q12HRT CINDA Administration Budesonide 0.5 mg 06/03/18 20:00 06/05/18 08:57 Pulmicort IH 0.5 mg Q12HRT CINDA Administration Enoxaparin Sodium 40 mg 06/03/18 10:00 06/04/18 11:01 Lovenox SUB-Q 40 mg QDAY@1000 CINDA Administration Folic Acid 1 mg 06/04/18 10:00 06/04/18 11:01 Folvite PO 1 mg QDAY CINDA Administration Sodium Chloride 1,000 mls @ 75 mls/hr 06/03/18 01:00 06/04/18 23:48 Nacl 0.9% 1000 Ml IV 75 mls/hr DIRECT CINDA Administration Ceftriaxone Sodium 1 gm in 50 mls @ 100 mls/hr 06/03/18 02:04 06/05/18 05:02 Rocephin/Ns 1 Gm/50 Ml IV 100 mls/hr Q24HR@0600 CINDA Administration Protocol Lorazepam 2 mg 06/03/18 14:00 Ativan PO Q1H PRN CIWA-Ar 8-15 Lorazepam 4 mg 06/03/18 14:00 Ativan IV Q1H PRN CIWA-Ar 16-25 Lorazepam 4 mg 06/03/18 14:00 Ativan IV Q15MIN PRN CIWA-Ar >25 Lorazepam 1 mg 06/03/18 14:01 06/04/18 23:47 Ativan IV 1 mg Q4H PRN Administration Agitation Lorazepam 1 mg 06/03/18 14:01 Ativan PO Q4H PRN Agitation Methylprednisolone Sodium Succinate 125 mg 06/05/18 06:00 06/05/18 05:03 Solu-Medrol IV 125 mg Q8HR CINDA Administration Multivitamins 5 ml 06/04/18 10:00 06/04/18 11:00 Centrum Liq PO 5 ml QDAY CINDA Administration Ondansetron HCl 4 mg 06/03/18 00:05 Zofran IV Q8H PRN Nausea And Vomiting Pantoprazole Sodium 40 mg 06/03/18 17:00 06/04/18 11:01 Protonix IV 40 mg QDAY CINDA Administration Sodium Chloride 10 ml 06/03/18 10:00 06/04/18 22:19 Sodium Chloride Flush Syringe 10 Ml IV 10 ml BID CINDA Administration Sodium Chloride 10 ml 06/03/18 00:05 Sodium Chloride Flush Syringe 10 Ml IV PRN PRN LINE FLUSH Sodium Chloride 1 gm 06/03/18 20:00 06/05/18 08:11 Sodium Chloride PO 1 gm TID CINDA Administration Tamsulosin HCl 0.4 mg 06/03/18 12:00 06/04/18 15:01 Flomax PO 0.4 mg QDAY CINDA Administration Thiamine HCl 100 mg 06/04/18 10:00 06/04/18 15:02 Vitamin B-1 PO 100 mg QDAY CINDA Administration
[2018-06-05] MEDS: PROTONIX IV SCH (09:29)
[2018-06-05] MEDS: FLOMAX PO SCH (09:29)
[2018-06-05] MEDS: VITAMIN B-1 PO SCH (09:29)
[2018-06-05] MEDS: FOLVITE PO SCH (09:29)
[2018-06-05] MEDS: Centrum Liq PO SCH (09:30)
[2018-06-05] MEDS: LOVENOX SUB-Q SCH (09:30)
[2018-06-05] MEDS: SODIUM CHLORIDE FLUSH SYRINGE 10 ML IV SCH ×2 (09:31→22:20)
--- NOTE | 2018-06-05 10:07 | Progress Note ---
Assessment and Plan Assessment and plan: 72-year-old man with history of alcoholism and likely dementia which has not been diagnosed with suspected by family. The patient's and he was dependent on her past the week 2 weeks prior. He was home by himself, is apparently drinking heavily not eating and not. He had been confused per his son and neighbors. His son and asked him to go to the ER he called the EMS. The patient was found to have a very low sodium, folic acid agitated and confused. CT head no acute findings Chest x-ray no acute findings -The patient is on [facility] protocol for alcohol withdrawal Continue saline IV fluid, replace potassium -UTI suspected, and ruled out via neg urine cx he received Steroids and nebulizers and pulmonary consults. -Dietitian consult was done and mentation is improved Diagnoses Alcohol dependence and withdrawal Acute metabolic encephalopathy Severe hyponatremia Hypercholesteremia Beer potomania Moderate malnutrition COPD exacerbation Tobacco abuse, current every day smoker Acute hypoxic respiratory failure Dementia severe malnutrition History Interval history: Patient has been confused and agitated he has been noted tried to climb out of bed multiple times Review of systems Constitutional: No fevers, no malaise, no joint pains CVS: No chest pain, no orthopnea, no dyspnea on exertion, no pedal edema GI: No abdominal pain, no diarrhea, no vomiting, no constipation Respiratory: He has had wheezing and shortness of breath Hospitalist Physical - Physical exam Narrative exam: General.: , nontoxic HEENT: Moist mucous membranes, extraocular muscles intact, no lymphadenopathy Neck: supple Cardiac: S1-S2 heard Lungs: Decreased air entry, wheezing throughout Abdomen: soft , nontender, nondistended, bowel sounds positive Extremities: no edema clubbing or cyanosis Skin: no rash or lesions Neurologic: Confused, moves all extremities Psych: Agitated - Constitutional Vitals: Temp Pulse Resp BP Pulse Ox 97.6 F 79 18 120/61 94 06/05/18 08:00 06/05/18 09:16 06/05/18 09:16 06/05/18 08:40 06/05/18 08:52 General appearance: Present: mild distress Results - Labs CBC & Chem 7: 06/04/18 09:47 06/06/18 05:25 Labs: Laboratory Last Values WBC 5.3 K/mm3 (4.5-11.0) 06/04/18 09:47 RBC 3.81 M/mm3 (3.65-5.03) 06/04/18 09:47 Hgb 12.4 gm/dl (11.8-15.2) 06/04/18 09:47 Hct 36.1 % (35.5-45.6) 06/04/18 09:47 MCV 95 fl (84-94) H 06/04/18 09:47 MCH 33 pg (28-32) H 06/04/18 09:47 MCHC 34 % (32-34) 06/04/18 09:47 RDW 12.8 % (13.2-15.2) L 06/04/18 09:47 Plt Count 220 K/mm3 (140-440) 06/04/18 09:47 Lamb % (Auto) Video News Editor 06/02/18 21:25 Add Manual Diff Complete 06/04/18 09:47 Total Counted 100 06/04/18 09:47 Seg Neuts % (Manual) 92.0 % (40.0-70.0) H 06/04/18 09:47 Band Neutrophils % 0 % 06/04/18 09:47 Lymphocytes % (Manual) 5.0 % (13.4-35.0) L 06/04/18 09:47 Reactive Lymphs % (Man) 0 % 06/04/18 09:47 Monocytes % (Manual) 3.0 % (0.0-7.3) 06/04/18 09:47 Eosinophils % (Manual) 0 % (0.0-4.3) 06/04/18 09:47 Basophils % (Manual) 0 % (0.0-1.8) 06/04/18 09:47 Metamyelocytes % 0 % 06/04/18 09:47 Myelocytes % 0 % 06/04/18 09:47 Promyelocytes % 0 % 06/04/18 09:47 Blast Cells % 0 % 06/04/18 09:47 Nucleated RBC % Not Reportable 06/04/18 09:47 Seg Neutrophils # Man 4.9 K/mm3 (1.8-7.7) 06/04/18 09:47 Band Neutrophils # 0.0 K/mm3 06/04/18 09:47 Lymphocytes # (Manual) 0.3 K/mm3 (1.2-5.4) L 06/04/18 09:47 Abs React Lymphs (Man) 0.0 K/mm3 06/04/18 09:47 Monocytes # (Manual) 0.2 K/mm3 (0.0-0.8) 06/04/18 09:47 Eosinophils # (Manual) 0.0 K/mm3 (0.0-0.4) 06/04/18 09:47 Basophils # (Manual) 0.0 K/mm3 (0.0-0.1) 06/04/18 09:47 Metamyelocytes # 0.0 K/mm3 06/04/18 09:47 Myelocytes # 0.0 K/mm3 06/04/18 09:47 Promyelocytes # 0.0 K/mm3 06/04/18 09:47 Blast Cells # 0.0 K/mm3 06/04/18 09:47 WBC Morphology Not Reportable 06/04/18 09:47 Hypersegmented Neuts Not Reportable 06/04/18 09:47 Hyposegmented Neuts Not Reportable 06/04/18 09:47 Hypogranular Neuts Not Reportable 06/04/18 09:47 Smudge Cells Not Reportable 06/04/18 09:47 Toxic Granulation 1+ 06/04/18 09:47 Toxic Vacuolation Not Reportable 06/04/18 09:47 Dohle Bodies Not Reportable 06/04/18 09:47 Pelger-Huet Anomaly Not Reportable 06/04/18 09:47 Dashawn Rods Not Reportable 06/04/18 09:47 Platelet Estimate Consistent w auto 06/04/18 09:47 Clumped Platelets Not Reportable 06/04/18 09:47 Plt Clumps, EDTA Not Reportable 06/04/18 09:47 Large Platelets Not Reportable 06/04/18 09:47 Giant Platelets Not Reportable 06/04/18 09:47 Platelet Satelliting Not Reportable 06/04/18 09:47 Plt Morphology Comment Not Reportable 06/04/18 09:47 RBC Morphology Normal 06/04/18 09:47 Dimorphic RBCs Not Reportable 06/04/18 09:47 Polychromasia Not Reportable 06/04/18 09:47 Hypochromasia Not Reportable 06/04/18 09:47 Poikilocytosis Not Reportable 06/04/18 09:47 Anisocytosis Not Reportable 06/04/18 09:47 Microcytosis Not Reportable 06/04/18 09:47 Macrocytosis Not Reportable 06/04/18 09:47 Spherocytes Not Reportable 06/04/18 09:47 Pappenheimer Bodies Not Reportable 06/04/18 09:47 Sickle Cells Not Reportable 06/04/18 09:47 Target Cells Not Reportable 06/04/18 09:47 Tear Drop Cells Not Reportable 06/04/18 09:47 Ovalocytes Not Reportable 06/04/18 09:47 Helmet Cells Not Reportable 06/04/18 09:47 [place] Bodies Not Reportable 06/04/18 09:47 [place] Rings Not Reportable 06/04/18 09:47 [place] Cells Not Reportable 06/04/18 09:47 Bite Cells Not Reportable 06/04/18 09:47 Crenated Cell Not Reportable 06/04/18 09:47 Elliptocytes Not Reportable 06/04/18 09:47 Acanthocytes (Spur) Not Reportable 06/04/18 09:47 Rouleaux Not Reportable 06/04/18 09:47 Hemoglobin C Crystals Not Reportable 06/04/18 09:47 Schistocytes Not Reportable 06/04/18 09:47 Malaria parasites Not Reportable 06/04/18 09:47 Rajesh Bodies Not Reportable 06/04/18 09:47 Hem Pathologist Commnt No 06/04/18 09:47 Sodium 126 mmol/L (137-145) L 06/05/18 04:29 Potassium 3.8 mmol/L (3.6-5.0) 06/05/18 04:29 Chloride 90.4 mmol/L (98-107) L 06/05/18 04:29 Carbon Dioxide 26 mmol/L (22-30) 06/05/18 04:29 Anion Gap 13 mmol/L 06/05/18 04:29 BUN 8 mg/dL (9-20) L 06/05/18 04:29 Creatinine 0.5 mg/dL (0.8-1.5) L 06/05/18 04:29 Estimated GFR > 60 ml/min 06/05/18 04:29 BUN/Creatinine Ratio 16 % 06/05/18 04:29 Glucose 170 mg/dL (75-100) H 06/05/18 04:29 POC Glucose 93 (70-105) 06/02/18 21:18 Osmolality 249 Mosm/kg 06/03/18 20:45 Calcium 8.2 mg/dL (8.4-10.2) L 06/05/18 04:29 Phosphorus 3.90 mg/dL (2.5-4.5) 06/04/18 09:47 Magnesium 1.80 mg/dL (1.7-2.3) 06/04/18 09:47 Total Bilirubin 0.40 mg/dL (0.1-1.2) 06/04/18 04:39 Direct Bilirubin < 0.2 mg/dL (0-0.2) 06/04/18 04:39 Indirect Bilirubin 0.2 mg/dL 06/04/18 04:39 AST 31 units/L (5-40) 06/04/18 04:39 ALT 26 units/L (7-56) 06/04/18 04:39 Alkaline Phosphatase 66 units/L (35-129) 06/04/18 04:39 Ammonia 23.0 umol/L (25-60) L 06/03/18 14:41 Total Creatine Kinase 420 units/L (55-170) H 06/02/18 21:25 Troponin T < 0.010 ng/mL (0.00-0.029) 06/02/18 21:25 NT-Pro-B Natriuret Pep 379.8 pg/mL (0-900) 06/02/18 21:25 Total Protein 5.5 g/dL (6.3-8.2) L 06/04/18 04:39 Albumin 3.1 g/dL (3.9-5) L 06/04/18 04:39 Albumin/Globulin Ratio 1.3 % 06/04/18 04:39 TSH 1.100 mlU/mL (0.270-4.200) 06/03/18 20:45 Urine Color Yellow (Yellow) 06/02/18 22:03 Urine Turbidity Slightly-cloudy (Clear) 06/02/18 22:03 Urine pH 6.0 (5.0-7.0) 06/02/18 22:03 Ur Specific [place] 1.004 (1.003-1.030) 06/02/18 22:03 Urine Protein <15 mg/dl mg/dL (Negative) 06/02/18 22:03 Urine Glucose (UA) Neg mg/dL (Negative) 06/02/18 22:03 Urine Ketones Neg mg/dL (Negative) 06/02/18 22:03 Urine Blood Sm (Negative) 06/02/18 22:03 Urine Nitrite Neg (Negative) 06/02/18 22:03 Urine Bilirubin Neg (Negative) 06/02/18 22:03 Urine Urobilinogen 2.0 mg/dL (<2.0) 06/02/18 22:03 Ur Leukocyte Esterase Lg (Negative) 06/02/18 22:03 Urine WBC (Auto) 24.0 /HPF (0.0-6.0) H 06/02/18 22:03 Urine RBC (Auto) 3.0 /HPF (0.0-6.0) 06/02/18 22:03 U Epithel Cells (Auto) < 1.0 /HPF (0-13.0) 06/02/18 22:03 Urine Bacteria (Auto) 1+ /HPF (Negative) 06/02/18 22:03 Urine Osmolality 203 Mosm/kg 06/02/18 22:02 Urine Sodium 20 mmol/L 06/02/18 22:02 Active Medications - Current Medications Current Medications: Generic Name Dose Route Start Last Admin Trade Name Freq PRN Reason Stop Dose Admin Acetaminophen 650 mg 06/03/18 00:05 06/04/18 22:18 Tylenol PO 650 mg Q4H PRN Administration Pain MILD(1-3)/Fever >100.5/CHANCE Albuterol 2.5 mg 06/03/18 13:11 06/03/18 15:01 Proventil IH 2.5 mg Q4HRT PRN Administration Shortness Of Breath Albuterol/Ipratropium 1 ampul 06/03/18 16:00 06/05/18 08:56 Duoneb *Not For Prn Use* IH 1 ampul Q6HRT CINDA Administration Arformoterol Tartrate 15 mcg 06/03/18 20:00 06/05/18 08:56 Brovana Nebu IH 15 mcg Q12HRT CINDA Administration Budesonide 0.5 mg 06/03/18 20:00 06/05/18 08:57 Pulmicort IH 0.5 mg Q12HRT CINDA Administration Enoxaparin Sodium 40 mg 06/03/18 10:00 06/05/18 09:30 Lovenox SUB-Q 40 mg QDAY@1000 CINDA Administration Folic Acid 1 mg 06/04/18 10:00 06/05/18 09:29 Folvite PO 1 mg QDAY CINDA Administration Sodium Chloride 1,000 mls @ 75 mls/hr 06/03/18 01:00 06/04/18 23:48 Nacl 0.9% 1000 Ml IV 75 mls/hr DIRECT CINDA Administration Ceftriaxone Sodium 1 gm in 50 mls @ 100 mls/hr 06/03/18 02:04 06/05/18 05:02 Rocephin/Ns 1 Gm/50 Ml IV 100 mls/hr Q24HR@0600 CINDA Administration Protocol Lorazepam 2 mg 06/03/18 14:00 Ativan PO Q1H PRN CIWA-Ar 8-15 Lorazepam 4 mg 06/03/18 14:00 Ativan IV Q1H PRN CIWA-Ar 16-25 Lorazepam 4 mg 06/03/18 14:00 Ativan IV Q15MIN PRN CIWA-Ar >25 Lorazepam 1 mg 06/03/18 14:01 06/04/18 23:47 Ativan IV 1 mg Q4H PRN Administration Agitation Lorazepam 1 mg 06/03/18 14:01 Ativan PO Q4H PRN Agitation Methylprednisolone Sodium Succinate 125 mg 06/05/18 06:00 06/05/18 05:03 Solu-Medrol IV 125 mg Q8HR CINDA Administration Multivitamins 5 ml 06/04/18 10:00 06/05/18 09:30 Centrum Liq PO 5 ml QDAY CINDA Administration Ondansetron HCl 4 mg 06/03/18 00:05 Zofran IV Q8H PRN Nausea And Vomiting Pantoprazole Sodium 40 mg 06/03/18 17:00 06/05/18 09:29 Protonix IV 40 mg QDAY CINDA Administration Sodium Chloride 10 ml 06/03/18 10:00 06/05/18 09:31 Sodium Chloride Flush Syringe 10 Ml IV 10 ml BID CINDA Administration Sodium Chloride 10 ml 06/03/18 00:05 Sodium Chloride Flush Syringe 10 Ml IV PRN PRN LINE FLUSH Sodium Chloride 1 gm 06/03/18 20:00 06/05/18 08:11 Sodium Chloride PO 1 gm TID CINDA Administration Tamsulosin HCl 0.4 mg 06/03/18 12:00 06/05/18 09:29 Flomax PO 0.4 mg QDAY CINDA Administration Thiamine HCl 100 mg 06/04/18 10:00 06/05/18 09:29 Vitamin B-1 PO 100 mg QDAY CINDA Administration
[2018-06-05] MEDS: NACL 0.9% 1000 ML 1,000 ML IV SCH (11:49)
[2018-06-05] MEDS: ATIVAN IV PRN (13:17)
--- NOTE | 2018-06-05 13:56 | Cat Scan Report ---
CT HEAD WITHOUT CONTRAST: HISTORY: Altered mental status. TECHNIQUE: Sequential CT images without contrast. FINDINGS: Images obtained show bilateral prominence of the sulci and ventricles. There are no abnormal intra- or extra-axial blood or fluid collections. There are no focal masses or evidence of mass effect. The clemente white matter differentiation appears within normal limits. Regions of periventricular decreased attenuation are consistent with microangiopathic ischemic disease. The posterior fossa structures including the fourth ventricle, cerebellum, and brainstem appear normal. IMPRESSION: Evidence of atrophy and microangiopathic ischemic disease. No acute intracranial process noted. No significant change since 06/02/18.
--- NOTE | 2018-06-05 14:59 | Progress Note ---
Assessment and Plan Acute COPD exacerbation Acute Hyponatremia Acute Encephalopathy (? Wernicke's) EtOH Abuse - Albuterol/Atrovent aerosol treatments q6hrs - Continue solumedrol (tapered to 60 mg IV q8h) - supplemental oxygen as necessary rto keep O2 sat's > 90% - Continue Lovenox - Continue Protonix - Continue empiric CAP AB's (added zithromax X 3 days) - free water restriction - continue to Watch for DTs. - aspiration and falls precautions - continue other care per attending / other consultants ... re-evaluate in am & prn Subjective Date of service: 06/05/18 Principal diagnosis: AE-COPD; Acute metabolic-toxic encephalopathy; hyponatremia Interval history: Patient is seen today for: AE-COPD; Acute metabolic-toxic encephalopathy; hyponatremia Seen and examined at bedside; 24hour events reviewed; nursing and respiratory care staff consulted; no adverse overnight events reported to me; resting in bed; remains with AMS; no emesis or overt aspiration Objective Vital Signs - 12hr 06/05/18 06/05/18 06/05/18 03:01 03:11 03:21 Temperature Pulse Rate 65 70 69 Pulse Rate [ Anterior Bilateral Throughout] Pulse Rate [ From Monitor] Respiratory 13 12 15 Rate Respiratory Rate [Anterior Bilateral Throughout] Blood Pressure 121/61 121/61 121/61 O2 Sat by Pulse 95 94 95 Oximetry 06/05/18 06/05/18 06/05/18 03:31 03:41 03:51 Temperature Pulse Rate 67 68 63 Pulse Rate [ Anterior Bilateral Throughout] Pulse Rate [ From Monitor] Respiratory 15 12 15 Rate Respiratory Rate [Anterior Bilateral Throughout] Blood Pressure 121/61 121/61 121/61 O2 Sat by Pulse 95 95 94 Oximetry 06/05/18 06/05/18 06/05/18 04:00 04:01 04:11 Temperature 97.7 F Pulse Rate 65 63 Pulse Rate [ Anterior Bilateral Throughout] Pulse Rate [ 64 From Monitor] Respiratory 16 14 18 Rate Respiratory Rate [Anterior Bilateral Throughout] Blood Pressure 121/55 121/55 O2 Sat by Pulse 95 94 94 Oximetry 06/05/18 06/05/18 06/05/18 04:21 04:31 04:41 Temperature Pulse Rate 62 73 70 Pulse Rate [ Anterior Bilateral Throughout] Pulse Rate [ From Monitor] Respiratory 13 13 16 Rate Respiratory Rate [Anterior Bilateral Throughout] Blood Pressure 121/55 121/55 121/55 O2 Sat by Pulse 94 94 94 Oximetry 06/05/18 06/05/18 06/05/18 04:51 05:00 05:01 Temperature Pulse Rate 79 90 90 Pulse Rate [ Anterior Bilateral Throughout] Pulse Rate [ From Monitor] Respiratory 17 17 Rate Respiratory Rate [Anterior Bilateral Throughout] Blood Pressure 121/55 121/55 O2 Sat by Pulse 94 93 Oximetry 06/05/18 06/05/18 06/05/18 05:07 05:11 05:21 Temperature Pulse Rate 90 65 66 Pulse Rate [ Anterior Bilateral Throughout] Pulse Rate [ From Monitor] Respiratory 15 13 Rate Respiratory Rate [Anterior Bilateral Throughout] Blood Pressure 121/55 121/55 O2 Sat by Pulse 95 94 Oximetry 06/05/18 06/05/18 06/05/18 05:31 05:41 05:51 Temperature Pulse Rate 65 63 65 Pulse Rate [ Anterior Bilateral Throughout] Pulse Rate [ From Monitor] Respiratory 14 15 16 Rate Respiratory Rate [Anterior Bilateral Throughout] Blood Pressure 121/55 121/55 121/55 O2 Sat by Pulse 94 95 94 Oximetry 06/05/18 06/05/18 06/05/18 06:01 06:11 06:21 Temperature Pulse Rate 66 64 70 Pulse Rate [ Anterior Bilateral Throughout] Pulse Rate [ From Monitor] Respiratory 17 15 14 Rate Respiratory Rate [Anterior Bilateral Throughout] Blood Pressure 121/55 121/55 121/55 O2 Sat by Pulse 93 93 94 Oximetry 06/05/18 06/05/18 06/05/18 06:31 06:41 06:50 Temperature Pulse Rate 81 62 61 Pulse Rate [ Anterior Bilateral Throughout] Pulse Rate [ From Monitor] Respiratory 11 L 13 14 Rate Respiratory Rate [Anterior Bilateral Throughout] Blood Pressure 121/55 121/55 121/55 O2 Sat by Pulse 90 94 94 Oximetry 06/05/18 06/05/18 06/05/18 07:01 07:11 07:20 Temperature Pulse Rate 63 62 65 Pulse Rate [ Anterior Bilateral Throughout] Pulse Rate [ From Monitor] Respiratory 14 14 13 Rate Respiratory Rate [Anterior Bilateral Throughout] Blood Pressure 121/55 121/55 121/55 O2 Sat by Pulse 94 95 92 Oximetry 06/05/18 06/05/18 06/05/18 07:30 07:40 07:50 Temperature Pulse Rate 91 H 68 65 Pulse Rate [ Anterior Bilateral Throughout] Pulse Rate [ From Monitor] Respiratory 15 19 15 Rate Respiratory Rate [Anterior Bilateral Throughout] Blood Pressure 121/55 121/55 O2 Sat by Pulse 89 94 95 Oximetry 06/05/18 06/05/18 06/05/18 08:00 08:10 08:20 Temperature 97.6 F Pulse Rate 100 H 64 64 Pulse Rate [ 88 Anterior Bilateral Throughout] Pulse Rate [ 89 From Monitor] Respiratory 15 17 16 Rate Respiratory 15 Rate [Anterior Bilateral Throughout] Blood Pressure 121/55 120/61 120/61 O2 Sat by Pulse 92 96 95 Oximetry 06/05/18 06/05/18 06/05/18 08:30 08:40 08:50 Temperature Pulse Rate 68 62 62 Pulse Rate [ Anterior Bilateral Throughout] Pulse Rate [ From Monitor] Respiratory 13 16 14 Rate Respiratory Rate [Anterior Bilateral Throughout] Blood Pressure 120/61 120/61 120/61 O2 Sat by Pulse 94 95 95 Oximetry 06/05/18 06/05/18 06/05/18 08:52 09:00 09:07 Temperature Pulse Rate 77 89 Pulse Rate [ Anterior Bilateral Throughout] Pulse Rate [ From Monitor] Respiratory 13 Rate Respiratory Rate [Anterior Bilateral Throughout] Blood Pressure 120/61 O2 Sat by Pulse 94 94 Oximetry 06/05/18 06/05/18 06/05/18 09:10 09:16 09:20 Temperature Pulse Rate 91 H 82 Pulse Rate [ 79 Anterior Bilateral Throughout] Pulse Rate [ From Monitor] Respiratory 18 15 Rate Respiratory 18 Rate [Anterior Bilateral Throughout] Blood Pressure 120/61 120/61 O2 Sat by Pulse 91 91 Oximetry 06/05/18 06/05/18 06/05/18 09:30 09:40 09:50 Temperature Pulse Rate 111 H 120 H 100 H Pulse Rate [ Anterior Bilateral Throughout] Pulse Rate [ From Monitor] Respiratory 16 25 H 21 Rate Respiratory Rate [Anterior Bilateral Throughout] Blood Pressure 120/61 120/61 120/61 O2 Sat by Pulse 87 92 90 Oximetry 06/05/18 06/05/18 06/05/18 10:00 10:10 10:20 Temperature Pulse Rate 108 H 90 84 Pulse Rate [ Anterior Bilateral Throughout] Pulse Rate [ From Monitor] Respiratory 22 21 18 Rate Respiratory Rate [Anterior Bilateral Throughout] Blood Pressure 120/61 120/61 120/61 O2 Sat by Pulse 89 92 92 Oximetry 06/05/18 06/05/18 06/05/18 10:30 10:40 10:50 Temperature Pulse Rate 91 H 88 83 Pulse Rate [ Anterior Bilateral Throughout] Pulse Rate [ From Monitor] Respiratory 19 19 16 Rate Respiratory Rate [Anterior Bilateral Throughout] Blood Pressure 120/61 120/61 120/61 O2 Sat by Pulse 93 92 92 Oximetry 06/05/18 06/05/18 06/05/18 11:00 11:10 11:20 Temperature Pulse Rate 78 84 113 H Pulse Rate [ Anterior Bilateral Throughout] Pulse Rate [ From Monitor] Respiratory 15 18 20 Rate Respiratory Rate [Anterior Bilateral Throughout] Blood Pressure 120/61 120/61 120/61 O2 Sat by Pulse 94 95 91 Oximetry 06/05/18 06/05/18 06/05/18 11:30 11:40 11:50 Temperature Pulse Rate 84 106 H 95 H Pulse Rate [ Anterior Bilateral Throughout] Pulse Rate [ From Monitor] Respiratory 19 26 H 19 Rate Respiratory Rate [Anterior Bilateral Throughout] Blood Pressure 120/61 120/61 120/61 O2 Sat by Pulse 94 91 94 Oximetry 06/05/18 06/05/18 06/05/18 12:00 12:10 12:20 Temperature Pulse Rate 88 101 H 113 H Pulse Rate [ Anterior Bilateral Throughout] Pulse Rate [ 89 From Monitor] Respiratory 18 17 20 Rate Respiratory Rate [Anterior Bilateral Throughout] Blood Pressure 135/70 135/70 135/70 O2 Sat by Pulse 96 87 96 Oximetry 06/05/18 06/05/18 06/05/18 12:30 12:40 12:50 Temperature Pulse Rate 107 H 113 H 108 H Pulse Rate [ Anterior Bilateral Throughout] Pulse Rate [ From Monitor] Respiratory 18 15 18 Rate Respiratory Rate [Anterior Bilateral Throughout] Blood Pressure 135/70 135/70 135/70 O2 Sat by Pulse Oximetry 06/05/18 13:00 Temperature Pulse Rate 103 H Pulse Rate [ Anterior Bilateral Throughout] Pulse Rate [ From Monitor] Respiratory 18 Rate Respiratory Rate [Anterior Bilateral Throughout] Blood Pressure 135/70 O2 Sat by Pulse Oximetry Constitutional: no acute distress, other (confused) Eyes: non-icteric ENT: oropharynx moist Neck: supple, no JVD Effort: normal Ascultation: Bilateral: other (prolonged expiratory phase) Cardiovascular: regular rate and rhythm Gastrointestinal: normoactive bowel sounds, soft, non-tender Integumentary: normal Extremities: no cyanosis, no edema Neurologic: non-focal exam, pupils equal and round, CN II-XII normal Psychiatric: other (confused) CBC and BMP: 06/14/18 05:14 06/14/18 05:14 Abnormal lab findings: Abnormal Labs 06/02/18 06/02/18 06/02/18 21:25 21:25 22:03 MCV MCH 33 H MCHC 35 H RDW 12.8 L Seg Neuts % (Manual) 80.0 H Lymphocytes % (Manual) Lymphocytes # (Manual) 0.8 L Sodium 109 L* Potassium Chloride 71.3 L BUN 6 L Creatinine 0.5 L Glucose Calcium Ammonia Total Creatine Kinase 420 H Total Protein Albumin Urine WBC (Auto) 24.0 H 06/03/18 06/03/18 06/03/18 00:15 06:27 09:42 MCV MCH MCHC RDW Seg Neuts % (Manual) Lymphocytes % (Manual) Lymphocytes # (Manual) Sodium 113 L* 118 L* 116 L* Potassium 3.5 L 3.5 L Chloride 77.2 L 79.1 L 78.2 L BUN 5 L 4 L 4 L Creatinine 0.4 L 0.5 L 0.4 L Glucose Calcium 8.2 L 7.9 L 8.1 L Ammonia Total Creatine Kinase Total Protein Albumin Urine WBC (Auto) 06/03/18 06/03/18 06/03/18 14:41 14:41 20:45 MCV MCH MCHC RDW Seg Neuts % (Manual) Lymphocytes % (Manual) Lymphocytes # (Manual) Sodium 114 L* 118 L* Potassium 3.1 L Chloride 76.3 L 79.7 L BUN 4 L 3 L Creatinine 0.5 L 0.4 L Glucose Calcium 8.1 L 8.3 L Ammonia 23.0 L Total Creatine Kinase Total Protein Albumin Urine WBC (Auto) 06/04/18 06/04/18 06/04/18 04:39 09:47 09:47 MCV 95 H MCH 33 H MCHC RDW 12.8 L Seg Neuts % (Manual) 92.0 H Lymphocytes % (Manual) 5.0 L Lymphocytes # (Manual) 0.3 L Sodium 123 L Potassium Chloride 85.2 L BUN 5 L Creatinine 0.5 L Glucose 129 H Calcium 8.3 L Ammonia Total Creatine Kinase Total Protein 5.5 L Albumin 3.1 L Urine WBC (Auto) 06/05/18 04:29 MCV MCH MCHC RDW Seg Neuts % (Manual) Lymphocytes % (Manual) Lymphocytes # (Manual) Sodium 126 L Potassium Chloride 90.4 L BUN 8 L Creatinine 0.5 L Glucose 170 H Calcium 8.2 L Ammonia Total Creatine Kinase Total Protein Albumin Urine WBC (Auto) Chest x-ray: image reviewed Allied health notes reviewed: nursing
[2018-06-05] MEDS: ZITHROMAX 500 MG in NACL 0.9% 250ML 250 ML IV SCH (15:34)
[2018-06-05] MEDS: DESYREL PO SCH (22:20)
[2018-06-06] MEDS: ATIVAN IV PRN ×2 (00:49→21:46)
[2018-06-06] MEDS: NACL 0.9% 1000 ML 1,000 ML IV SCH (05:07)
[2018-06-06 06:16] LABS: BUN/Creatinine Ratio 20; Blood Urea Nitrogen 10 mg/dL (9-20); Calcium 8.4 mg/dL (8.4-10.2); Hemolysis Index 4
[2018-06-06] MEDS: PULMICORT IH SCH ×2 (08:48→19:55)
[2018-06-06] MEDS: BROVANA NEBU IH SCH ×2 (08:49→21:18)
[2018-06-06] MEDS: DUONEB *Not for PRN Use IH SCH ×3 (08:49→19:55)
--- NOTE | 2018-06-06 09:27 | Progress Note ---
Assessment and Plan Acute COPD exacerbation Hypernatremia Acute Encephalopathy EtOH Abuse Moderate protein calorie malnutrition - Bronchodilators - Steroid taper - Supplemental oxygen to keep O2 sats 88-90% - Continue Lovenox, while monitoring platelets - Continue Protonix - Complete antibiotics for AE-COPD - free water and hypotonic solutions for hypernatremia -Aspiration precautions -Nutrition consult -ABG and CXR prn -PT/OT/Mobility as tolerated - continue CIWA protocol -Maintenance of sleep-wake cycle to decrease delirium Goals of care to be re-addressed with family Continue to monitor closely, he is at risk for acute hemodynamic and metabolic decompensation Subjective Date of service: 06/06/18 Interval history: Patient is seen today for: AE-COPD, acute encephalopathy( metabolic), moderate protein calorie malnutrition Seen and examined at bedside; 24hour events reviewed; nursing and respiratory care staff consulted; no adverse overnight events reported to me; remains on supplemental oxygen, intermittent confusion with tremors, no fevers or chills, no chest pain, tolerates oral feeding but needs assistance, no vomiting, no diarrhea Objective Vital Signs - 12hr 06/05/18 06/05/18 06/05/18 21:30 21:40 21:50 Temperature Pulse Rate 99 H 78 111 H Pulse Rate [ Anterior Bilateral Throughout] Pulse Rate [ From Monitor] Respiratory 20 17 21 Rate Respiratory Rate [Anterior Bilateral Throughout] Blood Pressure 143/72 143/72 143/72 O2 Sat by Pulse 98 97 92 Oximetry 06/05/18 06/05/18 06/05/18 22:00 22:10 22:20 Temperature Pulse Rate 99 H 95 H 97 H Pulse Rate [ Anterior Bilateral Throughout] Pulse Rate [ From Monitor] Respiratory 20 17 19 Rate Respiratory Rate [Anterior Bilateral Throughout] Blood Pressure 136/67 143/72 143/72 O2 Sat by Pulse 95 94 92 Oximetry 06/05/18 06/05/18 06/05/18 22:30 22:40 22:50 Temperature Pulse Rate 95 H 101 H 91 H Pulse Rate [ Anterior Bilateral Throughout] Pulse Rate [ From Monitor] Respiratory 17 24 18 Rate Respiratory Rate [Anterior Bilateral Throughout] Blood Pressure 143/72 136/67 136/67 O2 Sat by Pulse 93 90 94 Oximetry 06/05/18 06/05/18 06/05/18 23:00 23:10 23:13 Temperature 98.1 F Pulse Rate 89 118 H Pulse Rate [ Anterior Bilateral Throughout] Pulse Rate [ From Monitor] Respiratory 17 22 Rate Respiratory Rate [Anterior Bilateral Throughout] Blood Pressure 149/76 149/76 O2 Sat by Pulse 95 87 Oximetry 06/05/18 06/05/18 06/05/18 23:20 23:30 23:34 Temperature Pulse Rate 99 H 105 H 107 H Pulse Rate [ Anterior Bilateral Throughout] Pulse Rate [ From Monitor] Respiratory 18 18 17 Rate Respiratory Rate [Anterior Bilateral Throughout] Blood Pressure 149/76 149/76 149/76 O2 Sat by Pulse 93 95 93 Oximetry 06/05/18 06/05/18 06/06/18 23:40 23:50 00:00 Temperature Pulse Rate 95 H 103 H 84 Pulse Rate [ Anterior Bilateral Throughout] Pulse Rate [ 92 H From Monitor] Respiratory 20 18 17 Rate Respiratory Rate [Anterior Bilateral Throughout] Blood Pressure 149/76 149/76 158/77 O2 Sat by Pulse 94 87 93 Oximetry 06/06/18 06/06/18 06/06/18 00:10 00:20 00:30 Temperature Pulse Rate 92 H 109 H 100 H Pulse Rate [ Anterior Bilateral Throughout] Pulse Rate [ From Monitor] Respiratory 17 16 20 Rate Respiratory Rate [Anterior Bilateral Throughout] Blood Pressure 158/77 158/77 158/77 O2 Sat by Pulse 91 91 94 Oximetry 06/06/18 06/06/18 06/06/18 00:40 00:50 01:00 Temperature Pulse Rate 92 H 91 H 109 H Pulse Rate [ Anterior Bilateral Throughout] Pulse Rate [ From Monitor] Respiratory 18 18 18 Rate Respiratory Rate [Anterior Bilateral Throughout] Blood Pressure 158/77 158/77 168/87 O2 Sat by Pulse 93 92 91 Oximetry 06/06/18 06/06/18 06/06/18 01:10 01:20 01:30 Temperature Pulse Rate 88 86 102 H Pulse Rate [ Anterior Bilateral Throughout] Pulse Rate [ From Monitor] Respiratory 17 19 21 Rate Respiratory Rate [Anterior Bilateral Throughout] Blood Pressure 168/87 168/87 168/87 O2 Sat by Pulse 94 93 92 Oximetry 06/06/18 06/06/18 06/06/18 01:40 01:50 02:00 Temperature Pulse Rate 85 105 H 106 H Pulse Rate [ Anterior Bilateral Throughout] Pulse Rate [ From Monitor] Respiratory 16 15 18 Rate Respiratory Rate [Anterior Bilateral Throughout] Blood Pressure 168/87 168/87 167/96 O2 Sat by Pulse 93 87 92 Oximetry 06/06/18 06/06/18 06/06/18 02:10 02:20 02:30 Temperature Pulse Rate 82 93 H 94 H Pulse Rate [ Anterior Bilateral Throughout] Pulse Rate [ From Monitor] Respiratory 18 19 20 Rate Respiratory Rate [Anterior Bilateral Throughout] Blood Pressure 168/87 168/87 168/87 O2 Sat by Pulse 99 98 94 Oximetry 06/06/18 06/06/18 06/06/18 02:40 02:50 03:00 Temperature Pulse Rate 105 H 96 H 104 H Pulse Rate [ Anterior Bilateral Throughout] Pulse Rate [ From Monitor] Respiratory 22 20 24 Rate Respiratory Rate [Anterior Bilateral Throughout] Blood Pressure 168/87 168/87 160/98 O2 Sat by Pulse 92 97 93 Oximetry 06/06/18 06/06/18 06/06/18 03:10 03:20 03:30 Temperature Pulse Rate 84 93 H 84 Pulse Rate [ Anterior Bilateral Throughout] Pulse Rate [ From Monitor] Respiratory 18 22 18 Rate Respiratory Rate [Anterior Bilateral Throughout] Blood Pressure 160/98 160/98 160/98 O2 Sat by Pulse 94 91 93 Oximetry 06/06/18 06/06/18 06/06/18 03:40 03:49 03:50 Temperature 98.8 F Pulse Rate 112 H 92 H Pulse Rate [ Anterior Bilateral Throughout] Pulse Rate [ From Monitor] Respiratory 19 20 Rate Respiratory Rate [Anterior Bilateral Throughout] Blood Pressure 160/98 160/98 O2 Sat by Pulse 93 98 Oximetry 06/06/18 06/06/18 06/06/18 04:00 04:10 04:20 Temperature Pulse Rate 89 96 H 86 Pulse Rate [ Anterior Bilateral Throughout] Pulse Rate [ 90 From Monitor] Respiratory 16 18 17 Rate Respiratory Rate [Anterior Bilateral Throughout] Blood Pressure 162/105 162/105 160/98 O2 Sat by Pulse 97 95 95 Oximetry 06/06/18 06/06/18 06/06/18 04:30 04:40 04:50 Temperature Pulse Rate 112 H 97 H 94 H Pulse Rate [ Anterior Bilateral Throughout] Pulse Rate [ From Monitor] Respiratory 23 17 18 Rate Respiratory Rate [Anterior Bilateral Throughout] Blood Pressure 160/98 160/98 160/98 O2 Sat by Pulse 90 93 90 Oximetry 06/06/18 06/06/18 06/06/18 05:00 05:10 05:20 Temperature Pulse Rate 85 100 H 89 Pulse Rate [ Anterior Bilateral Throughout] Pulse Rate [ From Monitor] Respiratory 17 22 19 Rate Respiratory Rate [Anterior Bilateral Throughout] Blood Pressure 154/76 154/76 162/105 O2 Sat by Pulse 93 92 92 Oximetry 06/06/18 06/06/18 06/06/18 05:30 05:40 05:50 Temperature Pulse Rate 92 H 91 H 97 H Pulse Rate [ Anterior Bilateral Throughout] Pulse Rate [ From Monitor] Respiratory 18 16 22 Rate Respiratory Rate [Anterior Bilateral Throughout] Blood Pressure 162/105 162/105 154/76 O2 Sat by Pulse 94 95 92 Oximetry 06/06/18 06/06/18 06/06/18 06:00 06:10 06:20 Temperature Pulse Rate 92 H 110 H 84 Pulse Rate [ Anterior Bilateral Throughout] Pulse Rate [ From Monitor] Respiratory 19 24 17 Rate Respiratory Rate [Anterior Bilateral Throughout] Blood Pressure 170/92 170/92 170/92 O2 Sat by Pulse 92 91 94 Oximetry 06/06/18 06/06/18 06/06/18 06:30 06:40 06:50 Temperature Pulse Rate 93 H 85 86 Pulse Rate [ Anterior Bilateral Throughout] Pulse Rate [ From Monitor] Respiratory 20 19 18 Rate Respiratory Rate [Anterior Bilateral Throughout] Blood Pressure 170/92 170/92 170/92 O2 Sat by Pulse 94 94 95 Oximetry 06/06/18 06/06/18 06/06/18 07:00 07:10 07:20 Temperature Pulse Rate 84 86 84 Pulse Rate [ Anterior Bilateral Throughout] Pulse Rate [ From Monitor] Respiratory 17 15 21 Rate Respiratory Rate [Anterior Bilateral Throughout] Blood Pressure 183/93 173/88 170/92 O2 Sat by Pulse 94 94 92 Oximetry 06/06/18 06/06/18 06/06/18 07:30 07:40 07:50 Temperature Pulse Rate 95 H 81 113 H Pulse Rate [ Anterior Bilateral Throughout] Pulse Rate [ From Monitor] Respiratory 21 20 17 Rate Respiratory Rate [Anterior Bilateral Throughout] Blood Pressure 170/92 170/92 170/92 O2 Sat by Pulse 95 92 89 Oximetry 06/06/18 06/06/18 06/06/18 08:00 08:10 08:20 Temperature 97.6 F Pulse Rate 89 87 86 Pulse Rate [ 93 H Anterior Bilateral Throughout] Pulse Rate [ 90 From Monitor] Respiratory 19 18 20 Rate Respiratory 16 Rate [Anterior Bilateral Throughout] Blood Pressure 167/93 167/93 167/93 O2 Sat by Pulse 94 94 Oximetry 06/06/18 06/06/18 06/06/18 08:30 08:42 08:50 Temperature Pulse Rate 96 H 85 89 Pulse Rate [ Anterior Bilateral Throughout] Pulse Rate [ From Monitor] Respiratory 19 21 22 Rate Respiratory Rate [Anterior Bilateral Throughout] Blood Pressure 167/93 O2 Sat by Pulse 92 94 94 Oximetry 06/06/18 09:00 Temperature Pulse Rate 90 Pulse Rate [ Anterior Bilateral Throughout] Pulse Rate [ From Monitor] Respiratory 20 Rate Respiratory Rate [Anterior Bilateral Throughout] Blood Pressure 164/91 O2 Sat by Pulse 93 Oximetry Constitutional: no acute distress, other (confused) Eyes: non-icteric ENT: oropharynx moist Neck: supple, no JVD Effort: normal Ascultation: Bilateral: diminished breath sounds, other (prolonged expiratory phase) Cardiovascular: regular rate and rhythm, other (S1,S2) Gastrointestinal: normoactive bowel sounds, soft, non-tender, non-distended Integumentary: normal Extremities: no cyanosis, no edema Neurologic: non-focal exam (moves all extremities), pupils equal and round, motor strength normal and Psychiatric: other (confused) CBC and BMP: 06/14/18 05:14 06/14/18 05:14 Abnormal lab findings: Abnormal Labs 06/02/18 06/02/18 06/02/18 21:25 21:25 22:03 MCV MCH 33 H MCHC 35 H RDW 12.8 L Seg Neuts % (Manual) 80.0 H Lymphocytes % (Manual) Lymphocytes # (Manual) 0.8 L Sodium 109 L* Potassium Chloride 71.3 L BUN 6 L Creatinine 0.5 L Glucose Calcium Ammonia Total Creatine Kinase 420 H Total Protein Albumin Urine WBC (Auto) 24.0 H 06/03/18 06/03/18 06/03/18 00:15 06:27 09:42 MCV MCH MCHC RDW Seg Neuts % (Manual) Lymphocytes % (Manual) Lymphocytes # (Manual) Sodium 113 L* 118 L* 116 L* Potassium 3.5 L 3.5 L Chloride 77.2 L 79.1 L 78.2 L BUN 5 L 4 L 4 L Creatinine 0.4 L 0.5 L 0.4 L Glucose Calcium 8.2 L 7.9 L 8.1 L Ammonia Total Creatine Kinase Total Protein Albumin Urine WBC (Auto) 06/03/18 06/03/18 06/03/18 14:41 14:41 20:45 MCV MCH MCHC RDW Seg Neuts % (Manual) Lymphocytes % (Manual) Lymphocytes # (Manual) Sodium 114 L* 118 L* Potassium 3.1 L Chloride 76.3 L 79.7 L BUN 4 L 3 L Creatinine 0.5 L 0.4 L Glucose Calcium 8.1 L 8.3 L Ammonia 23.0 L Total Creatine Kinase Total Protein Albumin Urine WBC (Auto) 06/04/18 06/04/18 06/04/18 04:39 09:47 09:47 MCV 95 H MCH 33 H MCHC RDW 12.8 L Seg Neuts % (Manual) 92.0 H Lymphocytes % (Manual) 5.0 L Lymphocytes # (Manual) 0.3 L Sodium 123 L Potassium Chloride 85.2 L BUN 5 L Creatinine 0.5 L Glucose 129 H Calcium 8.3 L Ammonia Total Creatine Kinase Total Protein 5.5 L Albumin 3.1 L Urine WBC (Auto) 06/05/18 06/06/18 04:29 05:25 MCV MCH MCHC RDW Seg Neuts % (Manual) Lymphocytes % (Manual) Lymphocytes # (Manual) Sodium 126 L 133 L D Potassium Chloride 90.4 L 95.1 L BUN 8 L Creatinine 0.5 L 0.5 L Glucose 170 H 123 H Calcium 8.2 L Ammonia Total Creatine Kinase Total Protein Albumin Urine WBC (Auto)
[2018-06-06] MEDS: SODIUM CHLORIDE PO SCH ×3 (09:44→23:26)
[2018-06-06] MEDS: PROTONIX PO SCH (09:44)
[2018-06-06] MEDS: LOVENOX SUB-Q SCH (09:44)
[2018-06-06] MEDS: FOLVITE PO SCH (09:44)
[2018-06-06] MEDS: FLOMAX PO SCH (09:44)
[2018-06-06] MEDS: VITAMIN B-1 PO SCH (09:44)
[2018-06-06] MEDS: SODIUM CHLORIDE FLUSH SYRINGE 10 ML IV SCH ×2 (09:45→21:07)
[2018-06-06] MEDS: Centrum Liq PO SCH (09:45)
[2018-06-06] MEDS: ZITHROMAX 500 MG in NACL 0.9% 250ML 250 ML IV SCH (10:00)
[2018-06-06] MEDS: CATAPRES PO SCH ×2 (12:00→21:07)
--- NOTE | 2018-06-06 12:09 | Progress Note ---
Assessment and Plan Assessment and plan: 72-year-old man with history of alcoholism and likely dementia which has not been diagnosed with suspected by family. The patient's and he was dependent on her past the week 2 weeks prior. He was home by himself, is apparently drinking heavily not eating and not. He had been confused per his son and neighbors. His son and asked him to go to the ER he called the EMS. The patient was found to have a very low sodium, folic acid agitated and confused. CT head no acute findings Chest x-ray no acute findings -The patient is on [facility] protocol for alcohol withdrawal Continue saline IV fluid, replace potassium -UTI suspected, and ruled out via neg urine cx he received Steroids and nebulizers and pulmonary consults. -Dietitian consult was done and mentation is improved Diagnoses Alcohol dependence and withdrawal Acute metabolic encephalopathy Severe hyponatremia Hypercholesteremia Beer potomania Moderate malnutrition COPD exacerbation Tobacco abuse, current every day smoker Acute hypoxic respiratory failure Dementia severe malnutrition History Interval history: Patient has been confused and agitated he has been noted tried to climb out of bed multiple times Review of systems Constitutional: No fevers, no malaise, no joint pains CVS: No chest pain, no orthopnea, no dyspnea on exertion, no pedal edema GI: No abdominal pain, no diarrhea, no vomiting, no constipation Respiratory: He has had wheezing and shortness of breath Hospitalist Physical - Physical exam Narrative exam: General.: , nontoxic HEENT: Moist mucous membranes, extraocular muscles intact, no lymphadenopathy Neck: supple Cardiac: S1-S2 heard Lungs: Decreased air entry, wheezing throughout Abdomen: soft , nontender, nondistended, bowel sounds positive Extremities: no edema clubbing or cyanosis Skin: no rash or lesions Neurologic: Confused, moves all extremities Psych: Agitated - Constitutional Vitals: Temp Pulse Resp BP Pulse Ox 97.6 F 90 20 164/91 93 06/06/18 08:00 06/06/18 09:00 06/06/18 09:00 06/06/18 09:00 06/06/18 09:00 General appearance: Present: mild distress Results - Labs CBC & Chem 7: 06/04/18 09:47 06/07/18 07:11 Labs: Laboratory Last Values WBC 5.3 K/mm3 (4.5-11.0) 06/04/18 09:47 RBC 3.81 M/mm3 (3.65-5.03) 06/04/18 09:47 Hgb 12.4 gm/dl (11.8-15.2) 06/04/18 09:47 Hct 36.1 % (35.5-45.6) 06/04/18 09:47 MCV 95 fl (84-94) H 06/04/18 09:47 MCH 33 pg (28-32) H 06/04/18 09:47 MCHC 34 % (32-34) 06/04/18 09:47 RDW 12.8 % (13.2-15.2) L 06/04/18 09:47 Plt Count 220 K/mm3 (140-440) 06/04/18 09:47 O'Brien % (Auto) [facility] 06/02/18 21:25 Add Manual Diff Complete 06/04/18 09:47 Total Counted 100 06/04/18 09:47 Seg Neuts % (Manual) 92.0 % (40.0-70.0) H 06/04/18 09:47 Band Neutrophils % 0 % 06/04/18 09:47 Lymphocytes % (Manual) 5.0 % (13.4-35.0) L 06/04/18 09:47 Reactive Lymphs % (Man) 0 % 06/04/18 09:47 Monocytes % (Manual) 3.0 % (0.0-7.3) 06/04/18 09:47 Eosinophils % (Manual) 0 % (0.0-4.3) 06/04/18 09:47 Basophils % (Manual) 0 % (0.0-1.8) 06/04/18 09:47 Metamyelocytes % 0 % 06/04/18 09:47 Myelocytes % 0 % 06/04/18 09:47 Promyelocytes % 0 % 06/04/18 09:47 Blast Cells % 0 % 06/04/18 09:47 Nucleated RBC % Not Reportable 06/04/18 09:47 Seg Neutrophils # Man 4.9 K/mm3 (1.8-7.7) 06/04/18 09:47 Band Neutrophils # 0.0 K/mm3 06/04/18 09:47 Lymphocytes # (Manual) 0.3 K/mm3 (1.2-5.4) L 06/04/18 09:47 Abs React Lymphs (Man) 0.0 K/mm3 06/04/18 09:47 Monocytes # (Manual) 0.2 K/mm3 (0.0-0.8) 06/04/18 09:47 Eosinophils # (Manual) 0.0 K/mm3 (0.0-0.4) 06/04/18 09:47 Basophils # (Manual) 0.0 K/mm3 (0.0-0.1) 06/04/18 09:47 Metamyelocytes # 0.0 K/mm3 06/04/18 09:47 Myelocytes # 0.0 K/mm3 06/04/18 09:47 Promyelocytes # 0.0 K/mm3 06/04/18 09:47 Blast Cells # 0.0 K/mm3 06/04/18 09:47 WBC Morphology Not Reportable 06/04/18 09:47 Hypersegmented Neuts Not Reportable 06/04/18 09:47 Hyposegmented Neuts Not Reportable 06/04/18 09:47 Hypogranular Neuts Not Reportable 06/04/18 09:47 Smudge Cells Not Reportable 06/04/18 09:47 Toxic Granulation 1+ 06/04/18 09:47 Toxic Vacuolation Not Reportable 06/04/18 09:47 Dohle Bodies Not Reportable 06/04/18 09:47 Pelger-Huet Anomaly Not Reportable 06/04/18 09:47 Dashawn Rods Not Reportable 06/04/18 09:47 Platelet Estimate Consistent w auto 06/04/18 09:47 Clumped Platelets Not Reportable 06/04/18 09:47 Plt Clumps, EDTA Not Reportable 06/04/18 09:47 Large Platelets Not Reportable 06/04/18 09:47 Giant Platelets Not Reportable 06/04/18 09:47 Platelet Satelliting Not Reportable 06/04/18 09:47 Plt Morphology Comment Not Reportable 06/04/18 09:47 RBC Morphology Normal 06/04/18 09:47 Dimorphic RBCs Not Reportable 06/04/18 09:47 Polychromasia Not Reportable 06/04/18 09:47 Hypochromasia Not Reportable 06/04/18 09:47 Poikilocytosis Not Reportable 06/04/18 09:47 Anisocytosis Not Reportable 06/04/18 09:47 Microcytosis Not Reportable 06/04/18 09:47 Macrocytosis Not Reportable 06/04/18 09:47 Spherocytes Not Reportable 06/04/18 09:47 Pappenheimer Bodies Not Reportable 06/04/18 09:47 Sickle Cells Not Reportable 06/04/18 09:47 Target Cells Not Reportable 06/04/18 09:47 Tear Drop Cells Not Reportable 06/04/18 09:47 Ovalocytes Not Reportable 06/04/18 09:47 Helmet Cells Not Reportable 06/04/18 09:47 [place] Bodies Not Reportable 06/04/18 09:47 [place] Rings Not Reportable 06/04/18 09:47 [place] Cells Not Reportable 06/04/18 09:47 Bite Cells Not Reportable 06/04/18 09:47 Crenated Cell Not Reportable 06/04/18 09:47 Elliptocytes Not Reportable 06/04/18 09:47 Acanthocytes (Spur) Not Reportable 06/04/18 09:47 Rouleaux Not Reportable 06/04/18 09:47 Hemoglobin C Crystals Not Reportable 06/04/18 09:47 Schistocytes Not Reportable 06/04/18 09:47 Malaria parasites Not Reportable 06/04/18 09:47 Rajesh Bodies Not Reportable 06/04/18 09:47 Hem Pathologist Commnt No 06/04/18 09:47 Sodium 133 mmol/L (137-145) L D 06/06/18 05:25 Potassium 3.9 mmol/L (3.6-5.0) 06/06/18 05:25 Chloride 95.1 mmol/L (98-107) L 06/06/18 05:25 Carbon Dioxide 29 mmol/L (22-30) 06/06/18 05:25 Anion Gap 13 mmol/L 06/06/18 05:25 BUN 10 mg/dL (9-20) 06/06/18 05:25 Creatinine 0.5 mg/dL (0.8-1.5) L 06/06/18 05:25 Estimated GFR > 60 ml/min 06/06/18 05:25 BUN/Creatinine Ratio 20 % 06/06/18 05:25 Glucose 123 mg/dL (75-100) H 06/06/18 05:25 POC Glucose 93 (70-105) 06/02/18 21:18 Osmolality 249 Mosm/kg 06/03/18 20:45 Calcium 8.4 mg/dL (8.4-10.2) 06/06/18 05:25 Phosphorus 3.90 mg/dL (2.5-4.5) 06/04/18 09:47 Magnesium 1.80 mg/dL (1.7-2.3) 06/04/18 09:47 Total Bilirubin 0.40 mg/dL (0.1-1.2) 06/04/18 04:39 Direct Bilirubin < 0.2 mg/dL (0-0.2) 06/04/18 04:39 Indirect Bilirubin 0.2 mg/dL 06/04/18 04:39 AST 31 units/L (5-40) 06/04/18 04:39 ALT 26 units/L (7-56) 06/04/18 04:39 Alkaline Phosphatase 66 units/L (35-129) 06/04/18 04:39 Ammonia 23.0 umol/L (25-60) L 06/03/18 14:41 Total Creatine Kinase 420 units/L (55-170) H 06/02/18 21:25 Troponin T < 0.010 ng/mL (0.00-0.029) 06/02/18 21:25 NT-Pro-B Natriuret Pep 379.8 pg/mL (0-900) 06/02/18 21:25 Total Protein 5.5 g/dL (6.3-8.2) L 06/04/18 04:39 Albumin 3.1 g/dL (3.9-5) L 06/04/18 04:39 Albumin/Globulin Ratio 1.3 % 06/04/18 04:39 TSH 1.100 mlU/mL (0.270-4.200) 06/03/18 20:45 Urine Color Yellow (Yellow) 06/02/18 22:03 Urine Turbidity Slightly-cloudy (Clear) 06/02/18 22:03 Urine pH 6.0 (5.0-7.0) 06/02/18 22:03 Ur Specific [place] 1.004 (1.003-1.030) 06/02/18 22:03 Urine Protein <15 mg/dl mg/dL (Negative) 06/02/18 22:03 Urine Glucose (UA) Neg mg/dL (Negative) 06/02/18 22:03 Urine Ketones Neg mg/dL (Negative) 06/02/18 22:03 Urine Blood Sm (Negative) 06/02/18 22:03 Urine Nitrite Neg (Negative) 06/02/18 22:03 Urine Bilirubin Neg (Negative) 06/02/18 22:03 Urine Urobilinogen 2.0 mg/dL (<2.0) 06/02/18 22:03 Ur Leukocyte Esterase Lg (Negative) 06/02/18 22:03 Urine WBC (Auto) 24.0 /HPF (0.0-6.0) H 06/02/18 22:03 Urine RBC (Auto) 3.0 /HPF (0.0-6.0) 06/02/18 22:03 U Epithel Cells (Auto) < 1.0 /HPF (0-13.0) 06/02/18 22:03 Urine Bacteria (Auto) 1+ /HPF (Negative) 06/02/18 22:03 Urine Osmolality 203 Mosm/kg 06/02/18 22:02 Urine Sodium 20 mmol/L 06/02/18 22:02 Active Medications - Current Medications Current Medications: Generic Name Dose Route Start Last Admin Trade Name Freq PRN Reason Stop Dose Admin Acetaminophen 650 mg 06/03/18 00:05 06/04/18 22:18 Tylenol PO 650 mg Q4H PRN Administration Pain MILD(1-3)/Fever >100.5/CHANCE Albuterol 2.5 mg 06/03/18 13:11 06/03/18 15:01 Proventil IH 2.5 mg Q4HRT PRN Administration Shortness Of Breath Albuterol/Ipratropium 1 ampul 06/05/18 20:00 06/06/18 08:49 Duoneb *Not For Prn Use* IH 1 ampul TIDRT CINDA Administration Arformoterol Tartrate 15 mcg 06/03/18 20:00 06/06/18 08:49 Brovana Nebu IH 15 mcg Q12HRT CINDA Administration Budesonide 0.5 mg 06/03/18 20:00 06/06/18 08:48 Pulmicort IH 0.5 mg Q12HRT CINDA Administration Clonidine HCl 0.1 mg 06/06/18 11:00 Catapres PO Q12HR CINDA Enoxaparin Sodium 40 mg 06/03/18 10:00 06/06/18 09:44 Lovenox SUB-Q 40 mg QDAY@1000 CINDA Administration Folic Acid 1 mg 06/04/18 10:00 06/06/18 09:44 Folvite PO 1 mg QDAY CINDA Administration Sodium Chloride 1,000 mls @ 75 mls/hr 06/03/18 01:00 06/06/18 05:07 Nacl 0.9% 1000 Ml IV 75 mls/hr DIRECT CINDA Administration Azithromycin 500 mg/ Sodium 250 mls @ 250 mls/hr 06/05/18 15:30 06/05/18 15:34 Chloride IV 06/08/18 15:29 250 mls/hr Q24HR CINDA Administration Lorazepam 2 mg 06/03/18 14:00 Ativan PO Q1H PRN CIWA-Ar 8-15 Lorazepam 4 mg 06/03/18 14:00 Ativan IV Q1H PRN CIWA-Ar 16-25 Lorazepam 4 mg 06/03/18 14:00 Ativan IV Q15MIN PRN CIWA-Ar >25 Lorazepam 1 mg 06/03/18 14:01 Ativan PO Q4H PRN Agitation Lorazepam 0.5 mg 06/05/18 16:15 06/06/18 00:49 Ativan IV 0.5 mg Q4H PRN Administration Agitation Methylprednisolone Sodium Succinate 60 mg 06/05/18 15:00 06/05/18 22:20 Solu-Medrol IV 60 mg Q8HR CINDA Administration Multivitamins 5 ml 06/04/18 10:00 06/06/18 09:45 Centrum Liq PO 5 ml QDAY CINDA Administration Ondansetron HCl 4 mg 06/03/18 00:05 Zofran IV Q8H PRN Nausea And Vomiting Pantoprazole Sodium 40 mg 06/06/18 10:00 06/06/18 09:44 Protonix PO 40 mg DAILY CINDA Administration Sodium Chloride 10 ml 06/03/18 10:00 06/06/18 09:45 Sodium Chloride Flush Syringe 10 Ml IV 10 ml BID CINDA Administration Sodium Chloride 10 ml 06/03/18 00:05 Sodium Chloride Flush Syringe 10 Ml IV PRN PRN LINE FLUSH Sodium Chloride 1 gm 06/03/18 20:00 06/06/18 09:44 Sodium Chloride PO 1 gm TID CINDA Administration Tamsulosin HCl 0.4 mg 06/03/18 12:00 06/06/18 09:44 Flomax PO 0.4 mg QDAY CINDA Administration Thiamine HCl 100 mg 06/04/18 10:00 06/06/18 09:44 Vitamin B-1 PO 100 mg QDAY CINDA Administration Trazodone HCl 25 mg 06/05/18 22:00 06/05/18 22:20 Desyrel PO 25 mg QHS CINDA Administration
[2018-06-06] MEDS ORDERED: APRESOLINE IV PRN (12:10)
--- NOTE | 2018-06-06 13:39 | Progress Note ---
Assessment and Plan Impression: * Symptomatic hyponatremia --UOsm 203, Felix 20 --TSH wnl * COPD exacerbation * Urinary tract infection * Hypertension * Alcohol abuse Plan: * SNa continues to improve - 133 this AM * Continue NaCl tablets * Encourage po hydration * Strict I/O * Empiric abx per primary * AM labs Subjective Date of service: 06/06/18 Interval history: No acute events overnight. Objective - Vital Signs Vital signs: Vital Signs - 12hr 06/06/18 06/06/18 06/06/18 01:40 01:50 02:00 Temperature Pulse Rate 85 105 H 106 H Pulse Rate [ Anterior Bilateral Throughout] Pulse Rate [ From Monitor] Respiratory 16 15 18 Rate Respiratory Rate [Anterior Bilateral Throughout] Blood Pressure 168/87 168/87 167/96 O2 Sat by Pulse 93 87 92 Oximetry 06/06/18 06/06/18 06/06/18 02:10 02:20 02:30 Temperature Pulse Rate 82 93 H 94 H Pulse Rate [ Anterior Bilateral Throughout] Pulse Rate [ From Monitor] Respiratory 18 19 20 Rate Respiratory Rate [Anterior Bilateral Throughout] Blood Pressure 168/87 168/87 168/87 O2 Sat by Pulse 99 98 94 Oximetry 06/06/18 06/06/18 06/06/18 02:40 02:50 03:00 Temperature Pulse Rate 105 H 96 H 104 H Pulse Rate [ Anterior Bilateral Throughout] Pulse Rate [ From Monitor] Respiratory 22 20 24 Rate Respiratory Rate [Anterior Bilateral Throughout] Blood Pressure 168/87 168/87 160/98 O2 Sat by Pulse 92 97 93 Oximetry 06/06/18 06/06/18 06/06/18 03:10 03:20 03:30 Temperature Pulse Rate 84 93 H 84 Pulse Rate [ Anterior Bilateral Throughout] Pulse Rate [ From Monitor] Respiratory 18 22 18 Rate Respiratory Rate [Anterior Bilateral Throughout] Blood Pressure 160/98 160/98 160/98 O2 Sat by Pulse 94 91 93 Oximetry 06/06/18 06/06/18 06/06/18 03:40 03:49 03:50 Temperature 98.8 F Pulse Rate 112 H 92 H Pulse Rate [ Anterior Bilateral Throughout] Pulse Rate [ From Monitor] Respiratory 19 20 Rate Respiratory Rate [Anterior Bilateral Throughout] Blood Pressure 160/98 160/98 O2 Sat by Pulse 93 98 Oximetry 06/06/18 06/06/18 06/06/18 04:00 04:10 04:20 Temperature Pulse Rate 89 96 H 86 Pulse Rate [ Anterior Bilateral Throughout] Pulse Rate [ 90 From Monitor] Respiratory 16 18 17 Rate Respiratory Rate [Anterior Bilateral Throughout] Blood Pressure 162/105 162/105 160/98 O2 Sat by Pulse 97 95 95 Oximetry 06/06/18 06/06/18 06/06/18 04:30 04:40 04:50 Temperature Pulse Rate 112 H 97 H 94 H Pulse Rate [ Anterior Bilateral Throughout] Pulse Rate [ From Monitor] Respiratory 23 17 18 Rate Respiratory Rate [Anterior Bilateral Throughout] Blood Pressure 160/98 160/98 160/98 O2 Sat by Pulse 90 93 90 Oximetry 06/06/18 06/06/18 06/06/18 05:00 05:10 05:20 Temperature Pulse Rate 85 100 H 89 Pulse Rate [ Anterior Bilateral Throughout] Pulse Rate [ From Monitor] Respiratory 17 22 19 Rate Respiratory Rate [Anterior Bilateral Throughout] Blood Pressure 154/76 154/76 162/105 O2 Sat by Pulse 93 92 92 Oximetry 06/06/18 06/06/18 06/06/18 05:30 05:40 05:50 Temperature Pulse Rate 92 H 91 H 97 H Pulse Rate [ Anterior Bilateral Throughout] Pulse Rate [ From Monitor] Respiratory 18 16 22 Rate Respiratory Rate [Anterior Bilateral Throughout] Blood Pressure 162/105 162/105 154/76 O2 Sat by Pulse 94 95 92 Oximetry 06/06/18 06/06/18 06/06/18 06:00 06:10 06:20 Temperature Pulse Rate 92 H 110 H 84 Pulse Rate [ Anterior Bilateral Throughout] Pulse Rate [ From Monitor] Respiratory 19 24 17 Rate Respiratory Rate [Anterior Bilateral Throughout] Blood Pressure 170/92 170/92 170/92 O2 Sat by Pulse 92 91 94 Oximetry 06/06/18 06/06/18 06/06/18 06:30 06:40 06:50 Temperature Pulse Rate 93 H 85 86 Pulse Rate [ Anterior Bilateral Throughout] Pulse Rate [ From Monitor] Respiratory 20 19 18 Rate Respiratory Rate [Anterior Bilateral Throughout] Blood Pressure 170/92 170/92 170/92 O2 Sat by Pulse 94 94 95 Oximetry 06/06/18 06/06/18 06/06/18 07:00 07:10 07:20 Temperature Pulse Rate 84 86 84 Pulse Rate [ Anterior Bilateral Throughout] Pulse Rate [ From Monitor] Respiratory 17 15 21 Rate Respiratory Rate [Anterior Bilateral Throughout] Blood Pressure 183/93 173/88 170/92 O2 Sat by Pulse 94 94 92 Oximetry 06/06/18 06/06/18 06/06/18 07:30 07:40 07:50 Temperature Pulse Rate 95 H 81 113 H Pulse Rate [ Anterior Bilateral Throughout] Pulse Rate [ From Monitor] Respiratory 21 20 17 Rate Respiratory Rate [Anterior Bilateral Throughout] Blood Pressure 170/92 170/92 170/92 O2 Sat by Pulse 95 92 89 Oximetry 06/06/18 06/06/18 06/06/18 08:00 08:10 08:20 Temperature 98.4 F Pulse Rate 89 87 86 Pulse Rate [ 93 H Anterior Bilateral Throughout] Pulse Rate [ 90 From Monitor] Respiratory 19 18 20 Rate Respiratory 16 Rate [Anterior Bilateral Throughout] Blood Pressure 167/93 167/93 167/93 O2 Sat by Pulse 94 94 Oximetry 06/06/18 06/06/18 06/06/18 08:30 08:42 08:50 Temperature Pulse Rate 96 H 85 89 Pulse Rate [ Anterior Bilateral Throughout] Pulse Rate [ From Monitor] Respiratory 19 21 22 Rate Respiratory Rate [Anterior Bilateral Throughout] Blood Pressure 167/93 O2 Sat by Pulse 92 94 94 Oximetry 06/06/18 06/06/18 09:00 12:00 Temperature 98.2 F Pulse Rate 90 Pulse Rate [ Anterior Bilateral Throughout] Pulse Rate [ From Monitor] Respiratory 20 Rate Respiratory Rate [Anterior Bilateral Throughout] Blood Pressure 164/91 O2 Sat by Pulse 93 Oximetry - General Appearance General appearance: well-developed, well-nourished EENT: ATNC Respiratory: Present: Wheezes (occasional) Cardiology: regular, S1S2 Gastrointestinal: normal, no tenderness, no distended Neurologic: other (no edema) Psychiatric: cooperative - Lab 06/04/18 09:47 06/06/18 05:25 Most recent lab results Calcium 8.4 mg/dL (8.4-10.2) 06/06/18 05:25 Phosphorus 3.90 mg/dL (2.5-4.5) 06/04/18 09:47 Magnesium 1.80 mg/dL (1.7-2.3) 06/04/18 09:47 Urine Sodium 20 mmol/L 06/02/18 22:02 Medications & Allergies - Medications Allergies/Adverse Reactions: Allergies diphenhydramine HCl [From Benadryl] Allergy (Verified 09/24/14 11:56) Unknown HALLUCINATIONS Home Medications: Home Medications Medication Instructions Recorded Confirmed Last Taken Type Albuterol *Only Ed* [Proventil 2.5 mg IH Q4HRT PRN #1 nebu 10/03/14 06/03/18 Unknown Rx 0.5% NEBS] Folic Acid [Folvite] 1 mg PO QDAY #30 tablet 10/03/14 06/03/18 Unknown Rx Furosemide [Lasix TAB] 20 mg PO QDAY #30 tablet 10/03/14 06/03/18 Unknown Rx Metoprolol [Lopressor TAB] 12.5 mg PO BID #60 tablet 10/03/14 06/03/18 Unknown Rx Multivitamins Liq [Multiple 5 ml PO QDAY 30 Days oral.liqd 10/03/14 06/03/18 Unknown Rx Vitamin Liq (Theragran)] Thiamine [Vitamin B-1] 100 mg PO QDAY #30 tablet 10/03/14 06/03/18 Unknown Rx Active Medications: Generic Name Dose Route Start Last Admin Trade Name Freq PRN Reason Stop Dose Admin Acetaminophen 650 mg 06/03/18 00:05 06/04/18 22:18 Tylenol PO 650 mg Q4H PRN Administration Pain MILD(1-3)/Fever >100.5/CHANCE Albuterol 2.5 mg 06/03/18 13:11 06/03/18 15:01 Proventil IH 2.5 mg Q4HRT PRN Administration Shortness Of Breath Albuterol/Ipratropium 1 ampul 06/05/18 20:00 06/06/18 08:49 Duoneb *Not For Prn Use* IH 1 ampul TIDRT CINDA Administration Arformoterol Tartrate 15 mcg 06/03/18 20:00 06/06/18 08:49 Brovana Nebu IH 15 mcg Q12HRT CINDA Administration Budesonide 0.5 mg 06/03/18 20:00 06/06/18 08:48 Pulmicort IH 0.5 mg Q12HRT CINDA Administration Clonidine HCl 0.1 mg 06/06/18 11:00 Catapres PO Q12HR CINDA Enoxaparin Sodium 40 mg 06/03/18 10:00 06/06/18 09:44 Lovenox SUB-Q 40 mg QDAY@1000 CINDA Administration Folic Acid 1 mg 06/04/18 10:00 06/06/18 09:44 Folvite PO 1 mg QDAY CINDA Administration Hydralazine HCl 10 mg 06/06/18 12:10 Apresoline IV Q4H PRN BP >160/100 Sodium Chloride 1,000 mls @ 75 mls/hr 06/03/18 01:00 06/06/18 05:07 Nacl 0.9% 1000 Ml IV 75 mls/hr DIRECT CINDA Administration Azithromycin 500 mg/ Sodium 250 mls @ 250 mls/hr 06/05/18 15:30 06/05/18 15:34 Chloride IV 06/08/18 15:29 250 mls/hr Q24HR CINDA Administration Lorazepam 2 mg 06/03/18 14:00 Ativan PO Q1H PRN CIWA-Ar 8-15 Lorazepam 4 mg 06/03/18 14:00 Ativan IV Q1H PRN CIWA-Ar 16-25 Lorazepam 4 mg 06/03/18 14:00 Ativan IV Q15MIN PRN CIWA-Ar >25 Lorazepam 1 mg 06/03/18 14:01 Ativan PO Q4H PRN Agitation Lorazepam 0.5 mg 06/05/18 16:15 06/06/18 00:49 Ativan IV 0.5 mg Q4H PRN Administration Agitation Methylprednisolone Sodium Succinate 60 mg 06/05/18 15:00 06/05/18 22:20 Solu-Medrol IV 60 mg Q8HR CINDA Administration Multivitamins 5 ml 06/04/18 10:00 06/06/18 09:45 Centrum Liq PO 5 ml QDAY CINDA Administration Ondansetron HCl 4 mg 06/03/18 00:05 Zofran IV Q8H PRN Nausea And Vomiting Pantoprazole Sodium 40 mg 06/06/18 10:00 06/06/18 09:44 Protonix PO 40 mg DAILY CINDA Administration Sodium Chloride 10 ml 06/03/18 10:00 06/06/18 09:45 Sodium Chloride Flush Syringe 10 Ml IV 10 ml BID CINDA Administration Sodium Chloride 10 ml 06/03/18 00:05 Sodium Chloride Flush Syringe 10 Ml IV PRN PRN LINE FLUSH Sodium Chloride 1 gm 06/03/18 20:00 06/06/18 09:44 Sodium Chloride PO 1 gm TID CINDA Administration Tamsulosin HCl 0.4 mg 06/03/18 12:00 06/06/18 09:44 Flomax PO 0.4 mg QDAY CINDA Administration Thiamine HCl 100 mg 06/04/18 10:00 06/06/18 09:44 Vitamin B-1 PO 100 mg QDAY CINDA Administration Trazodone HCl 25 mg 06/05/18 22:00 06/05/18 22:20 Desyrel PO 25 mg QHS CINDA Administration
[2018-06-06] MEDS: SOLU-Medrol IV SCH ×3 (14:00→21:09)
[2018-06-06] MEDS ORDERED: D5/0.45NS 1,000 ML IV SCH (15:00)
[2018-06-06] MEDS ORDERED: REMERON PO SCH (22:00)
[2018-06-06] MEDS: DESYREL PO SCH (23:05)
[2018-06-07] MEDS: D5NS 1,000 ML IV SCH (01:12)
[2018-06-07] MEDS ORDERED: CARDIZEM IV ONE (03:20)
--- NOTE | 2018-06-07 03:27 | Event Note ---
Date: 06/06/18 PATIENT NOTED TO BE HAVING TACHYCARDIA ,NO CHEST PAIN OR SHORTNESS OF BREATH EXAMINATON CONFIRMED TACHYCARDIA . 12 LEAD EKGSHOWED SUPRAVENTRICULAR TACYCARDIA PLAN;1. 1.V CARDIZEM 20MG 2. TRANSFER TO TELEMETRY 3. 1 SET OF CARDIAC ENZYME,MAGNESIUM LEVEL 4. CLOSE MORNITORING FOR POSSIBLE CARDIZEM DRIP. I.V ADENOSINE IF RHYTHM PERXIST
[2018-06-07] MEDS: SOLU-Medrol IV SCH ×3 (05:21→23:28)
[2018-06-07 08:26] LABS: BUN/Creatinine Ratio 18; Blood Urea Nitrogen 9 mg/dL (9-20); Calcium 8.1 mg/dL (8.4-10.2); Hemolysis Index 3
[2018-06-07] MEDS: BROVANA NEBU IH SCH ×2 (09:07→20:33)
[2018-06-07] MEDS: PULMICORT IH SCH ×2 (09:07→20:33)
[2018-06-07] MEDS: DUONEB *Not for PRN Use IH SCH ×3 (09:15→20:33)
[2018-06-07] MEDS: LOVENOX SUB-Q SCH (09:45)
[2018-06-07] MEDS: CATAPRES PO SCH ×2 (09:46→23:30)
[2018-06-07] MEDS: FOLVITE PO SCH (09:46)
[2018-06-07] MEDS: FLOMAX PO SCH (09:46)
[2018-06-07] MEDS: PROTONIX PO SCH (09:46)
[2018-06-07] MEDS: SODIUM CHLORIDE FLUSH SYRINGE 10 ML IV SCH ×2 (09:47→23:31)
[2018-06-07] MEDS: VITAMIN B-1 PO SCH (09:54)
[2018-06-07] MEDS: SODIUM CHLORIDE PO SCH ×3 (11:01→23:29)
[2018-06-07] MEDS: Centrum Liq PO SCH (11:01)
[2018-06-07] MEDS: ZITHROMAX 500 MG in NACL 0.9% 250ML 250 ML IV SCH (11:01)
--- NOTE | 2018-06-07 11:08 | Progress Note ---
Assessment and Plan Impression: * Symptomatic hyponatremia --UOsm 203, Felix 20 --TSH wnl * COPD exacerbation * Urinary tract infection * Hypertension * Alcohol abuse Plan: * SNa lower today, stop remeron, place on restriction * Continue NaCl tablets * Strict I/O * Empiric abx per primary * AM labs Subjective Date of service: 06/07/18 Principal diagnosis: hyponatremia Interval history: resting well in bed today Objective - Exam Narrative Exam: General appearance: well-developed, well-nourished EENT: ATNC Respiratory: Present: Wheezes (occasional) Cardiology: regular, S1S2 Gastrointestinal: normal, no tenderness, no distended Neurologic: other (no edema) Psychiatric: cooperative - Vital Signs Vital signs: Vital Signs - 12hr 06/07/18 06/07/18 06/07/18 00:00 01:47 01:51 Temperature 97.3 F L Pulse Rate 167 H Respiratory 20 Rate Blood Pressure 141/98 135/90 Blood Pressure [Left] O2 Sat by Pulse 95 Oximetry 06/07/18 06/07/18 06/07/18 03:48 05:00 08:39 Temperature 98.1 F Pulse Rate 161 H 70 72 Respiratory 18 20 Rate Blood Pressure 135/90 124/72 Blood Pressure 130/76 [Left] O2 Sat by Pulse 100 100 Oximetry 06/07/18 06/07/18 08:40 09:46 Temperature 98.1 F Pulse Rate 73 Respiratory Rate Blood Pressure 124/72 Blood Pressure [Left] O2 Sat by Pulse Oximetry - Lab 06/04/18 09:47 06/07/18 07:11 Most recent lab results Calcium 8.1 mg/dL (8.4-10.2) L 06/07/18 07:11 Phosphorus 3.90 mg/dL (2.5-4.5) 06/04/18 09:47 Magnesium 1.80 mg/dL (1.7-2.3) 06/04/18 09:47 Urine Sodium 20 mmol/L 06/02/18 22:02 Medications & Allergies - Medications Allergies/Adverse Reactions: Allergies diphenhydramine HCl [From Benadryl] Allergy (Verified 09/24/14 11:56) Unknown HALLUCINATIONS Home Medications: Home Medications Medication Instructions Recorded Confirmed Last Taken Type Albuterol *Only Ed* [Proventil 2.5 mg IH Q4HRT PRN #1 nebu 10/03/14 06/03/18 Unknown Rx 0.5% NEBS] Folic Acid [Folvite] 1 mg PO QDAY #30 tablet 10/03/14 06/03/18 Unknown Rx Furosemide [Lasix TAB] 20 mg PO QDAY #30 tablet 10/03/14 06/03/18 Unknown Rx Metoprolol [Lopressor TAB] 12.5 mg PO BID #60 tablet 10/03/14 06/03/18 Unknown Rx Multivitamins Liq [Multiple 5 ml PO QDAY 30 Days oral.liqd 10/03/14 06/03/18 Unknown Rx Vitamin Liq (Theragran)] Thiamine [Vitamin B-1] 100 mg PO QDAY #30 tablet 10/03/14 06/03/18 Unknown Rx Active Medications: Generic Name Dose Route Start Last Admin Trade Name Freq PRN Reason Stop Dose Admin Acetaminophen 650 mg 06/03/18 00:05 06/04/18 22:18 Tylenol PO 650 mg Q4H PRN Administration Pain MILD(1-3)/Fever >100.5/CHANCE Albuterol 2.5 mg 06/03/18 13:11 06/03/18 15:01 Proventil IH 2.5 mg Q4HRT PRN Administration Shortness Of Breath Albuterol/Ipratropium 1 ampul 06/05/18 20:00 06/07/18 09:15 Duoneb *Not For Prn Use* IH Not Given TIDRT CINDA Arformoterol Tartrate 15 mcg 06/03/18 20:00 06/07/18 09:07 Brovana Nebu IH 15 mcg Q12HRT CINDA Administration Budesonide 0.5 mg 06/03/18 20:00 06/07/18 09:07 Pulmicort IH 0.5 mg Q12HRT CINDA Administration Clonidine HCl 0.1 mg 06/06/18 11:00 06/07/18 09:46 Catapres PO 0.1 mg Q12HR CINDA Administration Enoxaparin Sodium 40 mg 06/03/18 10:00 06/07/18 09:45 Lovenox SUB-Q 40 mg QDAY@1000 CINDA Administration Folic Acid 1 mg 06/04/18 10:00 06/07/18 09:46 Folvite PO 1 mg QDAY CINDA Administration Hydralazine HCl 10 mg 06/06/18 12:10 Apresoline IV Q4H PRN BP >160/100 Sodium Chloride 1,000 mls @ 75 mls/hr 06/03/18 01:00 06/06/18 05:07 Nacl 0.9% 1000 Ml IV 75 mls/hr DIRECT CINDA Administration Azithromycin 500 mg/ Sodium 250 mls @ 250 mls/hr 06/05/18 15:30 06/07/18 11:01 Chloride IV 06/08/18 15:29 250 mls/hr Q24HR CINDA Administration Dextrose/Sodium Chloride 1,000 mls @ 125 mls/hr 06/06/18 23:45 06/07/18 01:12 D5ns IV 125 mls/hr DIRECT CINDA Administration Lorazepam 2 mg 06/03/18 14:00 Ativan PO Q1H PRN CIWA-Ar 8-15 Lorazepam 4 mg 06/03/18 14:00 Ativan IV Q1H PRN CIWA-Ar 16-25 Lorazepam 4 mg 06/03/18 14:00 Ativan IV Q15MIN PRN CIWA-Ar >25 Lorazepam 1 mg 06/03/18 14:01 Ativan PO Q4H PRN Agitation Lorazepam 0.5 mg 06/05/18 16:15 06/06/18 21:46 Ativan IV 0.5 mg Q4H PRN Administration Agitation Methylprednisolone Sodium Succinate 60 mg 06/05/18 15:00 06/07/18 05:21 Solu-Medrol IV 60 mg Q8HR CINDA Administration Mirtazapine 30 mg 06/06/18 22:00 06/06/18 23:39 Remeron PO 30 mg QHS CINDA Administration Multivitamins 5 ml 06/04/18 10:00 06/07/18 11:01 Centrum Liq PO 5 ml QDAY CINDA Administration Ondansetron HCl 4 mg 06/03/18 00:05 Zofran IV Q8H PRN Nausea And Vomiting Pantoprazole Sodium 40 mg 06/06/18 10:00 06/07/18 09:46 Protonix PO 40 mg DAILY CINDA Administration Sodium Chloride 10 ml 06/03/18 10:00 06/07/18 09:47 Sodium Chloride Flush Syringe 10 Ml IV 10 ml BID CINDA Administration Sodium Chloride 10 ml 06/03/18 00:05 Sodium Chloride Flush Syringe 10 Ml IV PRN PRN LINE FLUSH Sodium Chloride 1 gm 06/03/18 20:00 06/07/18 11:01 Sodium Chloride PO 1 gm TID CINDA Administration Tamsulosin HCl 0.4 mg 06/03/18 12:00 06/07/18 09:46 Flomax PO 0.4 mg QDAY CINDA Administration Thiamine HCl 100 mg 06/04/18 10:00 06/07/18 09:54 Vitamin B-1 PO 100 mg QDAY CINDA Administration Trazodone HCl 25 mg 06/05/18 22:00 06/06/18 23:05 Desyrel PO 25 mg QHS CINDA Administration
--- NOTE | 2018-06-07 11:49 | Progress Note ---
Assessment and Plan Assessment and plan: 72-year-old man with history of alcoholism and likely dementia which has not been diagnosed with suspected by family. The patient's and he was dependent on her past the week 2 weeks prior. He was home by himself, is apparently drinking heavily not eating and not. He had been confused per his son and neighbors. His son and asked him to go to the ER he called the EMS. The patient was found to have a very low sodium, folic acid agitated and confused. CT head no acute findings Chest x-ray no acute findings -The patient is on [facility] protocol for alcohol withdrawal Continue saline IV fluid, replace potassium -UTI suspected, and ruled out via neg urine cx he received Steroids and nebulizers and pulmonary consults. -Dietitian consult was done and mentation is improved -, obtain echo, give Rate control meds as needed, cardiology consult, will need stress test , likely on Saturday Diagnoses SVT, Afib with RVR Alcohol dependence and withdrawal Acute metabolic encephalopathy Severe hyponatremia Hypercholesteremia Beer potomania Moderate malnutrition COPD exacerbation Tobacco abuse, current every day smoker Acute hypoxic respiratory failure Dementia severe malnutrition History Interval history: Patient has been confused, he is less agitated Review of systems Constitutional: No fevers, no malaise, no joint pains CVS: No chest pain, no orthopnea, no dyspnea on exertion, no pedal edema GI: No abdominal pain, no diarrhea, no vomiting, no constipation Respiratory: He has had wheezing and shortness of breath Hospitalist Physical - Physical exam Narrative exam: General.: , nontoxic HEENT: Moist mucous membranes, extraocular muscles intact, no lymphadenopathy Neck: supple Cardiac: S1-S2 heard Lungs: Decreased air entry, less wheezing that previously Abdomen: soft , nontender, nondistended, bowel sounds positive Extremities: no edema clubbing or cyanosis Skin: no rash or lesions Neurologic: Confused, moves all extremities Psych: calm, - Constitutional Vitals: Temp Pulse Resp BP Pulse Ox 98.1 F 73 20 124/72 100 06/07/18 08:40 06/07/18 09:46 06/07/18 08:39 06/07/18 09:46 06/07/18 08:39 General appearance: Present: mild distress Results - Labs CBC & Chem 7: 06/04/18 09:47 06/07/18 07:11 Labs: Laboratory Last Values WBC 5.3 K/mm3 (4.5-11.0) 06/04/18 09:47 RBC 3.81 M/mm3 (3.65-5.03) 06/04/18 09:47 Hgb 12.4 gm/dl (11.8-15.2) 06/04/18 09:47 Hct 36.1 % (35.5-45.6) 06/04/18 09:47 MCV 95 fl (84-94) H 06/04/18 09:47 MCH 33 pg (28-32) H 06/04/18 09:47 MCHC 34 % (32-34) 06/04/18 09:47 RDW 12.8 % (13.2-15.2) L 06/04/18 09:47 Plt Count 220 K/mm3 (140-440) 06/04/18 09:47 [place] % (Auto) Sweet Pickled Fruit Maker 06/02/18 21:25 Add Manual Diff Complete 06/04/18 09:47 Total Counted 100 06/04/18 09:47 Seg Neuts % (Manual) 92.0 % (40.0-70.0) H 06/04/18 09:47 Band Neutrophils % 0 % 06/04/18 09:47 Lymphocytes % (Manual) 5.0 % (13.4-35.0) L 06/04/18 09:47 Reactive Lymphs % (Man) 0 % 06/04/18 09:47 Monocytes % (Manual) 3.0 % (0.0-7.3) 06/04/18 09:47 Eosinophils % (Manual) 0 % (0.0-4.3) 06/04/18 09:47 Basophils % (Manual) 0 % (0.0-1.8) 06/04/18 09:47 Metamyelocytes % 0 % 06/04/18 09:47 Myelocytes % 0 % 06/04/18 09:47 Promyelocytes % 0 % 06/04/18 09:47 Blast Cells % 0 % 06/04/18 09:47 Nucleated RBC % Not Reportable 06/04/18 09:47 Seg Neutrophils # Man 4.9 K/mm3 (1.8-7.7) 06/04/18 09:47 Band Neutrophils # 0.0 K/mm3 06/04/18 09:47 Lymphocytes # (Manual) 0.3 K/mm3 (1.2-5.4) L 06/04/18 09:47 Abs React Lymphs (Man) 0.0 K/mm3 06/04/18 09:47 Monocytes # (Manual) 0.2 K/mm3 (0.0-0.8) 06/04/18 09:47 Eosinophils # (Manual) 0.0 K/mm3 (0.0-0.4) 06/04/18 09:47 Basophils # (Manual) 0.0 K/mm3 (0.0-0.1) 06/04/18 09:47 Metamyelocytes # 0.0 K/mm3 06/04/18 09:47 Myelocytes # 0.0 K/mm3 06/04/18 09:47 Promyelocytes # 0.0 K/mm3 06/04/18 09:47 Blast Cells # 0.0 K/mm3 06/04/18 09:47 WBC Morphology Not Reportable 06/04/18 09:47 Hypersegmented Neuts Not Reportable 06/04/18 09:47 Hyposegmented Neuts Not Reportable 06/04/18 09:47 Hypogranular Neuts Not Reportable 06/04/18 09:47 Smudge Cells Not Reportable 06/04/18 09:47 Toxic Granulation 1+ 06/04/18 09:47 Toxic Vacuolation Not Reportable 06/04/18 09:47 Dohle Bodies Not Reportable 06/04/18 09:47 Pelger-Huet Anomaly Not Reportable 06/04/18 09:47 Dashawn Rods Not Reportable 06/04/18 09:47 Platelet Estimate Consistent w auto 06/04/18 09:47 Clumped Platelets Not Reportable 06/04/18 09:47 Plt Clumps, EDTA Not Reportable 06/04/18 09:47 Large Platelets Not Reportable 06/04/18 09:47 Giant Platelets Not Reportable 06/04/18 09:47 Platelet Satelliting Not Reportable 06/04/18 09:47 Plt Morphology Comment Not Reportable 06/04/18 09:47 RBC Morphology Normal 06/04/18 09:47 Dimorphic RBCs Not Reportable 06/04/18 09:47 Polychromasia Not Reportable 06/04/18 09:47 Hypochromasia Not Reportable 06/04/18 09:47 Poikilocytosis Not Reportable 06/04/18 09:47 Anisocytosis Not Reportable 06/04/18 09:47 Microcytosis Not Reportable 06/04/18 09:47 Macrocytosis Not Reportable 06/04/18 09:47 Spherocytes Not Reportable 06/04/18 09:47 Pappenheimer Bodies Not Reportable 06/04/18 09:47 Sickle Cells Not Reportable 06/04/18 09:47 Target Cells Not Reportable 06/04/18 09:47 Tear Drop Cells Not Reportable 06/04/18 09:47 Ovalocytes Not Reportable 06/04/18 09:47 Helmet Cells Not Reportable 06/04/18 09:47 [place] Bodies Not Reportable 06/04/18 09:47 [place] Rings Not Reportable 06/04/18 09:47 [place] Cells Not Reportable 06/04/18 09:47 Bite Cells Not Reportable 06/04/18 09:47 Crenated Cell Not Reportable 06/04/18 09:47 Elliptocytes Not Reportable 06/04/18 09:47 Acanthocytes (Spur) Not Reportable 06/04/18 09:47 Rouleaux Not Reportable 06/04/18 09:47 Hemoglobin C Crystals Not Reportable 06/04/18 09:47 Schistocytes Not Reportable 06/04/18 09:47 Malaria parasites Not Reportable 06/04/18 09:47 Rajesh Bodies Not Reportable 06/04/18 09:47 Hem Pathologist Commnt No 06/04/18 09:47 Sodium 126 mmol/L (137-145) L D 06/07/18 07:11 Potassium 3.6 mmol/L (3.6-5.0) 06/07/18 07:11 Chloride 86.1 mmol/L (98-107) L 06/07/18 07:11 Carbon Dioxide 30 mmol/L (22-30) 06/07/18 07:11 Anion Gap 14 mmol/L 06/07/18 07:11 BUN 9 mg/dL (9-20) 06/07/18 07:11 Creatinine 0.5 mg/dL (0.8-1.5) L 06/07/18 07:11 Estimated GFR > 60 ml/min 06/07/18 07:11 BUN/Creatinine Ratio 18 % 06/07/18 07:11 Glucose 129 mg/dL (75-100) H 06/07/18 07:11 POC Glucose 93 (70-105) 06/02/18 21:18 Osmolality 249 Mosm/kg 06/03/18 20:45 Calcium 8.1 mg/dL (8.4-10.2) L 06/07/18 07:11 Phosphorus 3.90 mg/dL (2.5-4.5) 06/04/18 09:47 Magnesium 1.80 mg/dL (1.7-2.3) 06/04/18 09:47 Total Bilirubin 0.40 mg/dL (0.1-1.2) 06/04/18 04:39 Direct Bilirubin < 0.2 mg/dL (0-0.2) 06/04/18 04:39 Indirect Bilirubin 0.2 mg/dL 06/04/18 04:39 AST 31 units/L (5-40) 06/04/18 04:39 ALT 26 units/L (7-56) 06/04/18 04:39 Alkaline Phosphatase 66 units/L (35-129) 06/04/18 04:39 Ammonia 23.0 umol/L (25-60) L 06/03/18 14:41 Total Creatine Kinase 420 units/L (55-170) H 06/02/18 21:25 Troponin T < 0.010 ng/mL (0.00-0.029) 06/02/18 21:25 NT-Pro-B Natriuret Pep 379.8 pg/mL (0-900) 06/02/18 21:25 Total Protein 5.5 g/dL (6.3-8.2) L 06/04/18 04:39 Albumin 3.1 g/dL (3.9-5) L 06/04/18 04:39 Albumin/Globulin Ratio 1.3 % 06/04/18 04:39 TSH 1.100 mlU/mL (0.270-4.200) 06/03/18 20:45 Urine Color Yellow (Yellow) 06/02/18 22:03 Urine Turbidity Slightly-cloudy (Clear) 06/02/18 22:03 Urine pH 6.0 (5.0-7.0) 06/02/18 22:03 Ur Specific [place] 1.004 (1.003-1.030) 06/02/18 22:03 Urine Protein <15 mg/dl mg/dL (Negative) 06/02/18 22:03 Urine Glucose (UA) Neg mg/dL (Negative) 06/02/18 22:03 Urine Ketones Neg mg/dL (Negative) 06/02/18 22:03 Urine Blood Sm (Negative) 06/02/18 22:03 Urine Nitrite Neg (Negative) 06/02/18 22:03 Urine Bilirubin Neg (Negative) 06/02/18 22:03 Urine Urobilinogen 2.0 mg/dL (<2.0) 06/02/18 22:03 Ur Leukocyte Esterase Lg (Negative) 06/02/18 22:03 Urine WBC (Auto) 24.0 /HPF (0.0-6.0) H 06/02/18 22:03 Urine RBC (Auto) 3.0 /HPF (0.0-6.0) 06/02/18 22:03 U Epithel Cells (Auto) < 1.0 /HPF (0-13.0) 06/02/18 22:03 Urine Bacteria (Auto) 1+ /HPF (Negative) 06/02/18 22:03 Urine Osmolality 203 Mosm/kg 06/02/18 22:02 Urine Sodium 20 mmol/L 06/02/18 22:02 Active Medications - Current Medications Current Medications: Generic Name Dose Route Start Last Admin Trade Name Freq PRN Reason Stop Dose Admin Acetaminophen 650 mg 06/03/18 00:05 06/04/18 22:18 Tylenol PO 650 mg Q4H PRN Administration Pain MILD(1-3)/Fever >100.5/CHANCE Albuterol 2.5 mg 06/03/18 13:11 06/03/18 15:01 Proventil IH 2.5 mg Q4HRT PRN Administration Shortness Of Breath Albuterol/Ipratropium 1 ampul 06/05/18 20:00 06/07/18 09:15 Duoneb *Not For Prn Use* IH Not Given TIDRT CINDA Arformoterol Tartrate 15 mcg 06/03/18 20:00 06/07/18 09:07 Brovana Nebu IH 15 mcg Q12HRT CINDA Administration Budesonide 0.5 mg 06/03/18 20:00 06/07/18 09:07 Pulmicort IH 0.5 mg Q12HRT CINDA Administration Clonidine HCl 0.1 mg 06/06/18 11:00 06/07/18 09:46 Catapres PO 0.1 mg Q12HR CINDA Administration Enoxaparin Sodium 40 mg 06/03/18 10:00 06/07/18 09:45 Lovenox SUB-Q 40 mg QDAY@1000 CINDA Administration Folic Acid 1 mg 06/04/18 10:00 06/07/18 09:46 Folvite PO 1 mg QDAY CINDA Administration Hydralazine HCl 10 mg 06/06/18 12:10 Apresoline IV Q4H PRN BP >160/100 Sodium Chloride 1,000 mls @ 75 mls/hr 06/03/18 01:00 06/06/18 05:07 Nacl 0.9% 1000 Ml IV 75 mls/hr DIRECT CINDA Administration Azithromycin 500 mg/ Sodium 250 mls @ 250 mls/hr 06/05/18 15:30 06/07/18 11:01 Chloride IV 06/08/18 15:29 250 mls/hr Q24HR CINDA Administration Dextrose/Sodium Chloride 1,000 mls @ 125 mls/hr 06/06/18 23:45 06/07/18 01:12 D5ns IV 125 mls/hr DIRECT CINDA Administration Lorazepam 2 mg 06/03/18 14:00 Ativan PO Q1H PRN CIWA-Ar 8-15 Lorazepam 4 mg 06/03/18 14:00 Ativan IV Q1H PRN CIWA-Ar 16-25 Lorazepam 4 mg 06/03/18 14:00 Ativan IV Q15MIN PRN CIWA-Ar >25 Lorazepam 1 mg 06/03/18 14:01 Ativan PO Q4H PRN Agitation Lorazepam 0.5 mg 06/05/18 16:15 06/06/18 21:46 Ativan IV 0.5 mg Q4H PRN Administration Agitation Methylprednisolone Sodium Succinate 60 mg 06/05/18 15:00 06/07/18 05:21 Solu-Medrol IV 60 mg Q8HR CINDA Administration Multivitamins 5 ml 06/04/18 10:00 06/07/18 11:01 Centrum Liq PO 5 ml QDAY CINDA Administration Ondansetron HCl 4 mg 06/03/18 00:05 Zofran IV Q8H PRN Nausea And Vomiting Pantoprazole Sodium 40 mg 06/06/18 10:00 06/07/18 09:46 Protonix PO 40 mg DAILY CINDA Administration Sodium Chloride 10 ml 06/03/18 10:00 06/07/18 09:47 Sodium Chloride Flush Syringe 10 Ml IV 10 ml BID CINDA Administration Sodium Chloride 10 ml 06/03/18 00:05 Sodium Chloride Flush Syringe 10 Ml IV PRN PRN LINE FLUSH Sodium Chloride 2 gm 06/07/18 14:00 Sodium Chloride PO TID CINDA Tamsulosin HCl 0.4 mg 06/03/18 12:00 06/07/18 09:46 Flomax PO 0.4 mg QDAY CINDA Administration Thiamine HCl 100 mg 06/04/18 10:00 06/07/18 09:54 Vitamin B-1 PO 100 mg QDAY CINDA Administration Trazodone HCl 25 mg 06/05/18 22:00 06/06/18 23:05 Desyrel PO 25 mg QHS CINDA Administration
[2018-06-07] MEDS ORDERED: LOPRESSOR IV PRN (13:02)
--- NOTE | 2018-06-07 13:43 | Progress Note ---
Assessment and Plan Patient is awake but confused. Is on 2L O2. O2 saturation is 93%. No acute respiratory distress. - Patient Problems (1) COPD exacerbation Current Visit: No Status: Acute Plan to address problem: According to the history, possible COPD. Patient on 2L O2 Albuterol/Atrovent aerosol treatments q6hrs Continue solumedrol Continue Lovenox Continue Protonix Continue Ceftriaxone recommend to add azithromycin (2) Acute hyponatremia Current Visit: Yes Status: Acute Plan to address problem: management as per nephrology sodium improved to 126 (3) Altered mental status Current Visit: Yes Status: Acute Plan to address problem: Watch altered mental status, may improve once sodium normalizes. Also watch for DTs. (4) Alcohol abuse Current Visit: No Status: Acute Plan to address problem: Watch for DTs. Subjective Date of service: 06/07/18 Principal diagnosis: hyponatremia Interval history: Patient is awake but confused. Is on 2L O2. O2 saturation is 93%. No acute respiratory distress. Objective Vital Signs - 12hr 06/07/18 06/07/18 06/07/18 01:47 01:51 03:48 Temperature 97.3 F L Pulse Rate 167 H 161 H Pulse Rate [ Anterior Bilateral Throughout] Respiratory 20 Rate Respiratory Rate [Anterior Bilateral Throughout] Blood Pressure 135/90 135/90 Blood Pressure [Left] O2 Sat by Pulse 95 Oximetry 06/07/18 06/07/18 06/07/18 05:00 08:39 08:40 Temperature 98.1 F 98.1 F Pulse Rate 70 72 Pulse Rate [ Anterior Bilateral Throughout] Respiratory 18 20 Rate Respiratory Rate [Anterior Bilateral Throughout] Blood Pressure 124/72 Blood Pressure 130/76 [Left] O2 Sat by Pulse 100 100 Oximetry 06/07/18 06/07/18 06/07/18 09:07 09:17 09:46 Temperature Pulse Rate 73 Pulse Rate [ 67 79 Anterior Bilateral Throughout] Respiratory Rate Respiratory 20 20 Rate [Anterior Bilateral Throughout] Blood Pressure 124/72 Blood Pressure [Left] O2 Sat by Pulse 98 Oximetry Constitutional: no acute distress, alert, other (confused) Eyes: non-icteric ENT: oropharynx moist Neck: supple, no JVD Effort: normal Ascultation: Bilateral: other (prolonged expiratory phase) Cardiovascular: regular rate and rhythm Gastrointestinal: normoactive bowel sounds, soft, non-tender Integumentary: normal Extremities: no cyanosis, no edema Neurologic: non-focal exam, pupils equal and round, CN II-XII normal Psychiatric: other (confused) CBC and BMP: 06/04/18 09:47 06/07/18 07:11 Abnormal lab findings: Abnormal Labs 06/02/18 06/02/18 06/02/18 21:25 21:25 22:03 MCV MCH 33 H MCHC 35 H RDW 12.8 L Seg Neuts % (Manual) 80.0 H Lymphocytes % (Manual) Lymphocytes # (Manual) 0.8 L Sodium 109 L* Potassium Chloride 71.3 L BUN 6 L Creatinine 0.5 L Glucose Calcium Ammonia Total Creatine Kinase 420 H Total Protein Albumin Urine WBC (Auto) 24.0 H 06/03/18 06/03/18 06/03/18 00:15 06:27 09:42 MCV MCH MCHC RDW Seg Neuts % (Manual) Lymphocytes % (Manual) Lymphocytes # (Manual) Sodium 113 L* 118 L* 116 L* Potassium 3.5 L 3.5 L Chloride 77.2 L 79.1 L 78.2 L BUN 5 L 4 L 4 L Creatinine 0.4 L 0.5 L 0.4 L Glucose Calcium 8.2 L 7.9 L 8.1 L Ammonia Total Creatine Kinase Total Protein Albumin Urine WBC (Auto) 06/03/18 06/03/18 06/03/18 14:41 14:41 20:45 MCV MCH MCHC RDW Seg Neuts % (Manual) Lymphocytes % (Manual) Lymphocytes # (Manual) Sodium 114 L* 118 L* Potassium 3.1 L Chloride 76.3 L 79.7 L BUN 4 L 3 L Creatinine 0.5 L 0.4 L Glucose Calcium 8.1 L 8.3 L Ammonia 23.0 L Total Creatine Kinase Total Protein Albumin Urine WBC (Auto) 06/04/18 06/04/18 06/04/18 04:39 09:47 09:47 MCV 95 H MCH 33 H MCHC RDW 12.8 L Seg Neuts % (Manual) 92.0 H Lymphocytes % (Manual) 5.0 L Lymphocytes # (Manual) 0.3 L Sodium 123 L Potassium Chloride 85.2 L BUN 5 L Creatinine 0.5 L Glucose 129 H Calcium 8.3 L Ammonia Total Creatine Kinase Total Protein 5.5 L Albumin 3.1 L Urine WBC (Auto) 06/05/18 06/06/18 06/07/18 04:29 05:25 07:11 MCV MCH MCHC RDW Seg Neuts % (Manual) Lymphocytes % (Manual) Lymphocytes # (Manual) Sodium 126 L 133 L D 126 L D Potassium Chloride 90.4 L 95.1 L 86.1 L BUN 8 L Creatinine 0.5 L 0.5 L 0.5 L Glucose 170 H 123 H 129 H Calcium 8.2 L 8.1 L Ammonia Total Creatine Kinase Total Protein Albumin Urine WBC (Auto) Chest x-ray: report reviewed (Reported negative single view chest.), image reviewed
[2018-06-07] MEDS ORDERED: LOPRESSOR PO SCH (14:00)
--- NOTE | 2018-06-07 16:35 | Consultation ---
History of Present Illness Consult date: 06/07/18 Consult reason: tachycardia History of present illness: Patient was noted to have tachycardia usually morning today that is 06/07/2018:. EKG showed atrial flutter with rapid ventricular rate around 162 bpm. Patient was transferred to telemetry. It is to be noted the EKG done at the time of admission on 06/02/2018 showed atrial flutter at a rate of 79 bpm. Subsequently, patient was noted to show paroxysmal atrial flutter, patient mostly in sinus rhythm today. Past History Past Medical History: hypertension Past Surgical History: No surgical history Social history: no significant social history, , Lives alone, alcohol abuse Family history: no significant family history Medications and Allergies Allergies Allergy/AdvReac Type Severity Reaction Status Date / Time diphenhydramine HCl Allergy Unknown Verified 09/24/14 11:56 [From [facility]] Home Medications Medication Instructions Recorded Confirmed Last Taken Type Albuterol *Only Ed* [Proventil 2.5 mg IH Q4HRT PRN #1 nebu 10/03/14 06/03/18 Unknown Rx 0.5% NEBS] Folic Acid [Folvite] 1 mg PO QDAY #30 tablet 10/03/14 06/03/18 Unknown Rx Furosemide [Lasix TAB] 20 mg PO QDAY #30 tablet 10/03/14 06/03/18 Unknown Rx Metoprolol [Lopressor TAB] 12.5 mg PO BID #60 tablet 10/03/14 06/03/18 Unknown Rx Multivitamins Liq [Multiple 5 ml PO QDAY 30 Days oral.liqd 10/03/14 06/03/18 Unknown Rx Vitamin Liq (Theragran)] Thiamine [Vitamin B-1] 100 mg PO QDAY #30 tablet 10/03/14 06/03/18 Unknown Rx Active Meds: Active Medications Acetaminophen (Tylenol) 650 mg PO Q4H PRN PRN Reason: Pain MILD(1-3)/Fever >100.5/CHANCE Last Admin: 06/04/18 22:18 Dose: 650 mg Documented by: Albuterol (Proventil) 2.5 mg IH Q4HRT PRN PRN Reason: Shortness Of Breath Last Admin: 06/03/18 15:01 Dose: 2.5 mg Documented by: Albuterol/Ipratropium (Duoneb *Not For Prn Use*) 1 ampul IH TIDRT ON LICENSE OF [facility] Last Admin: 06/07/18 14:26 Dose: 1 ampul Documented by: Arformoterol Tartrate (Brovana Nebu) 15 mcg IH Q12HRT ON LICENSE OF [facility] Last Admin: 06/07/18 09:07 Dose: 15 mcg Documented by: Budesonide (Pulmicort) 0.5 mg IH Q12HRT ON LICENSE OF [facility] Last Admin: 06/07/18 09:07 Dose: 0.5 mg Documented by: Clonidine HCl (Catapres) 0.1 mg PO Q12HR ON LICENSE OF [facility] Last Admin: 06/07/18 09:46 Dose: 0.1 mg Documented by: Enoxaparin Sodium (Lovenox) 40 mg SUB-Q QDAY@1000 ON LICENSE OF [facility] Last Admin: 06/07/18 09:45 Dose: 40 mg Documented by: Folic Acid (Folvite) 1 mg PO QDAY ON LICENSE OF [facility] Last Admin: 06/07/18 09:46 Dose: 1 mg Documented by: Hydralazine HCl (Apresoline) 10 mg IV Q4H PRN PRN Reason: BP >160/100 Sodium Chloride (Nacl 0.9% 1000 Ml) 1,000 mls @ 75 mls/hr IV DIRECT ON LICENSE OF [facility] Last Admin: 06/06/18 05:07 Dose: 75 mls/hr Documented by: Azithromycin 500 mg/ Sodium (Chloride) 250 mls @ 250 mls/hr IV Q24HR ON LICENSE OF [facility] Stop: 06/08/18 15:29 Last Admin: 06/07/18 11:01 Dose: 250 mls/hr Documented by: Dextrose/Sodium Chloride (D5ns) 1,000 mls @ 125 mls/hr IV DIRECT ON LICENSE OF [facility] Last Admin: 06/07/18 01:12 Dose: 125 mls/hr Documented by: Lorazepam (Ativan) 2 mg PO Q1H PRN PRN Reason: CIWA-Ar 8-15 Lorazepam (Ativan) 4 mg IV Q1H PRN PRN Reason: CIWA-Ar 16-25 Lorazepam (Ativan) 4 mg IV Q15MIN PRN PRN Reason: CIWA-Ar >25 Lorazepam (Ativan) 1 mg PO Q4H PRN PRN Reason: Agitation Lorazepam (Ativan) 0.5 mg IV Q4H PRN PRN Reason: Agitation Last Admin: 06/06/18 21:46 Dose: 0.5 mg Documented by: Methylprednisolone Sodium Succinate (Solu-Medrol) 60 mg IV Q8HR ON LICENSE OF [facility] Last Admin: 06/07/18 05:21 Dose: 60 mg Documented by: Metoprolol Tartrate (Lopressor) 5 mg IV Q6H PRN PRN Reason: Sustained HR >130 Metoprolol Tartrate (Lopressor) 12.5 mg PO BID ON LICENSE OF [facility] Multivitamins (Centrum Liq) 5 ml PO QDAY ON LICENSE OF [facility] Last Admin: 06/07/18 11:01 Dose: 5 ml Documented by: Ondansetron HCl (Zofran) 4 mg IV Q8H PRN PRN Reason: Nausea And Vomiting Pantoprazole Sodium (Protonix) 40 mg PO DAILY ON LICENSE OF [facility] Last Admin: 06/07/18 09:46 Dose: 40 mg Documented by: Sodium Chloride (Sodium Chloride Flush Syringe 10 Ml) 10 ml IV BID ON LICENSE OF [facility] Last Admin: 06/07/18 09:47 Dose: 10 ml Documented by: Sodium Chloride (Sodium Chloride Flush Syringe 10 Ml) 10 ml IV PRN PRN PRN Reason: LINE FLUSH Sodium Chloride (Sodium Chloride) 2 gm PO TID ON LICENSE OF [facility] Tamsulosin HCl (Flomax) 0.4 mg PO QDAY ON LICENSE OF [facility] Last Admin: 06/07/18 09:46 Dose: 0.4 mg Documented by: Thiamine HCl (Vitamin B-1) 100 mg PO QDAY ON LICENSE OF [facility] Last Admin: 06/07/18 09:54 Dose: 100 mg Documented by: Trazodone HCl (Desyrel) 25 mg PO QHS ON LICENSE OF [facility] Last Admin: 06/06/18 23:05 Dose: 25 mg Documented by: Review of Systems ROS unobtainable: due to mental status Physical Examination Vital Signs Temp Pulse Resp BP Pulse Ox 98.2 F 79 16 140/85 99 06/02/18 20:56 06/02/18 20:56 06/02/18 20:56 06/02/18 20:56 06/02/18 20:56 General appearance: no acute distress Neck: Positive: neck supple Cardiac: Positive: Reg Rate and Rhythm Lungs: Positive: clear to auscultation Neuro: Positive: Other (responds to verbal commands,opens eys,could not comminicate.) Abdomen: Positive: Unremarkable Skin: Negative: Clear Extremities: Absent: edema Results 06/04/18 09:47 06/08/18 11:03 Comprehensive Metabolic Panel 06/07/18 Range/Units 07:11 Sodium 126 L D (137-145) mmol/L Potassium 3.6 (3.6-5.0) mmol/L Chloride 86.1 L (98-107) mmol/L Carbon Dioxide 30 (22-30) mmol/L BUN 9 (9-20) mg/dL Creatinine 0.5 L (0.8-1.5) mg/dL Glucose 129 H (75-100) mg/dL Calcium 8.1 L (8.4-10.2) mg/dL EKG interpretations - Telemetry EKG Rhythm: Atrial Flutter (done 06/02/2018 at a rate of 79 bpm.) Assessment and Plan Paroxysmal atrial flutter in 72 yo male,with hx. of HTN,underlying alcoholic hx. and significant hyponatemia,now in S.R,continue Metoprolol and consider manager terminal anticoagulation after getting better medical history. - Patient Problems (1) Acute hyponatremia Current Visit: Yes Status: Acute (2) Altered mental status Current Visit: Yes Status: Acute (3) Alcohol abuse Current Visit: No Status: Acute (4) COPD exacerbation Current Visit: No Status: Acute (5) Hypertension Current Visit: No Status: Acute
[2018-06-07] MEDS: ATIVAN IV PRN ×2 (18:28→23:43)
--- NOTE | 2018-06-07 20:11 | Consultation ---
History of Present Illness - Reason for Consult Consult date: 06/07/18 Reason for consult: follow up - Chief Complaint Chief complaint: Weakness, change in mental status - History of Present Psychiatric Illness 72 M seen on the telemetry floor for psychiatric consult. He has questionable dementia. He was reported to be alert in the morning and did not recognize his son in the afternoon. This evening he began to become more confused according to his nurse. He was given ativan and is now sedated. Unable to assess. Medications and Allergies Allergies Allergy/AdvReac Type Severity Reaction Status Date / Time diphenhydramine HCl Allergy Unknown Verified 09/24/14 11:56 [From Benadryl] Home Medications Medication Instructions Recorded Confirmed Last Taken Type Albuterol *Only Ed* [Proventil 2.5 mg IH Q4HRT PRN #1 nebu 10/03/14 06/03/18 Unknown Rx 0.5% NEBS] Folic Acid [Folvite] 1 mg PO QDAY #30 tablet 10/03/14 06/03/18 Unknown Rx Furosemide [Lasix TAB] 20 mg PO QDAY #30 tablet 10/03/14 06/03/18 Unknown Rx Metoprolol [Lopressor TAB] 12.5 mg PO BID #60 tablet 10/03/14 06/03/18 Unknown Rx Multivitamins Liq [Multiple 5 ml PO QDAY 30 Days oral.liqd 10/03/14 06/03/18 Unknown Rx Vitamin Liq (Theragran)] Thiamine [Vitamin B-1] 100 mg PO QDAY #30 tablet 10/03/14 06/03/18 Unknown Rx Active Meds: Active Medications Acetaminophen (Tylenol) 650 mg PO Q4H PRN PRN Reason: Pain MILD(1-3)/Fever >100.5/CHANCE Last Admin: 06/04/18 22:18 Dose: 650 mg Documented by: Albuterol (Proventil) 2.5 mg IH Q4HRT PRN PRN Reason: Shortness Of Breath Last Admin: 06/03/18 15:01 Dose: 2.5 mg Documented by: Albuterol/Ipratropium (Duoneb *Not For Prn Use*) 1 ampul IH TIDRT [facility] Last Admin: 06/07/18 14:26 Dose: 1 ampul Documented by: Arformoterol Tartrate (Brovana Nebu) 15 mcg IH Q12HRT [facility] Last Admin: 06/07/18 09:07 Dose: 15 mcg Documented by: Budesonide (Pulmicort) 0.5 mg IH Q12HRT [facility] Last Admin: 06/07/18 09:07 Dose: 0.5 mg Documented by: Clonidine HCl (Catapres) 0.1 mg PO Q12HR [facility] Last Admin: 06/07/18 09:46 Dose: 0.1 mg Documented by: Enoxaparin Sodium (Lovenox) 40 mg SUB-Q QDAY@1000 [facility] Last Admin: 06/07/18 09:45 Dose: 40 mg Documented by: Folic Acid (Folvite) 1 mg PO QDAY [facility] Last Admin: 06/07/18 09:46 Dose: 1 mg Documented by: Hydralazine HCl (Apresoline) 10 mg IV Q4H PRN PRN Reason: BP >160/100 Sodium Chloride (Nacl 0.9% 1000 Ml) 1,000 mls @ 75 mls/hr IV DIRECT [facility] Last Admin: 06/06/18 05:07 Dose: 75 mls/hr Documented by: Azithromycin 500 mg/ Sodium (Chloride) 250 mls @ 250 mls/hr IV Q24HR [facility] Stop: 06/08/18 15:29 Last Admin: 06/07/18 11:01 Dose: 250 mls/hr Documented by: Dextrose/Sodium Chloride (D5ns) 1,000 mls @ 125 mls/hr IV DIRECT [facility] Last Admin: 06/07/18 01:12 Dose: 125 mls/hr Documented by: Lorazepam (Ativan) 2 mg PO Q1H PRN PRN Reason: CIWA-Ar 8-15 Lorazepam (Ativan) 4 mg IV Q1H PRN PRN Reason: CIWA-Ar 16-25 Last Admin: 06/07/18 18:28 Dose: 4 mg Documented by: Lorazepam (Ativan) 4 mg IV Q15MIN PRN PRN Reason: CIWA-Ar >25 Lorazepam (Ativan) 1 mg PO Q4H PRN PRN Reason: Agitation Lorazepam (Ativan) 0.5 mg IV Q4H PRN PRN Reason: Agitation Last Admin: 06/06/18 21:46 Dose: 0.5 mg Documented by: Melatonin (Melatonin) 5 mg PO QHS PRN PRN Reason: Sleep Methylprednisolone Sodium Succinate (Solu-Medrol) 60 mg IV Q8HR [facility] Last Admin: 06/07/18 15:00 Dose: 60 mg Documented by: Metoprolol Tartrate (Lopressor) 5 mg IV Q6H PRN PRN Reason: Sustained HR >130 Metoprolol Tartrate (Lopressor) 25 mg PO BID [facility] Multivitamins (Centrum Liq) 5 ml PO QDAY [facility] Last Admin: 06/07/18 11:01 Dose: 5 ml Documented by: Ondansetron HCl (Zofran) 4 mg IV Q8H PRN PRN Reason: Nausea And Vomiting Pantoprazole Sodium (Protonix) 40 mg PO DAILY [facility] Last Admin: 06/07/18 09:46 Dose: 40 mg Documented by: Sodium Chloride (Sodium Chloride Flush Syringe 10 Ml) 10 ml IV BID [facility] Last Admin: 06/07/18 09:47 Dose: 10 ml Documented by: Sodium Chloride (Sodium Chloride Flush Syringe 10 Ml) 10 ml IV PRN PRN PRN Reason: LINE FLUSH Sodium Chloride (Sodium Chloride) 2 gm PO TID [facility] Last Admin: 06/07/18 17:15 Dose: 2 gm Documented by: Tamsulosin HCl (Flomax) 0.4 mg PO QDAY [facility] Last Admin: 06/07/18 09:46 Dose: 0.4 mg Documented by: Thiamine HCl (Vitamin B-1) 100 mg PO QDAY [facility] Last Admin: 06/07/18 09:54 Dose: 100 mg Documented by: Past psychiatric history - past Psychiatric treatment and history psychiatric treatment history: unknown Mental Status Exam - Vital signs Last Vital Signs Temp 97.4 F L 06/07/18 16:47 Pulse 72 06/07/18 16:45 Resp 20 06/07/18 16:45 BP 121/67 06/07/18 16:45 Pulse Ox 99 06/07/18 16:45 - Exam Narrative exam: unable to assess sedated after receiving ativan Results Result Diagrams: 06/04/18 09:47 06/08/18 11:03 Abnormal lab results 06/07/18 Range/Units 07:11 Sodium 126 L D (137-145) mmol/L Chloride 86.1 L (98-107) mmol/L Creatinine 0.5 L (0.8-1.5) mg/dL Glucose 129 H (75-100) mg/dL Calcium 8.1 L (8.4-10.2) mg/dL All other labs normal. Assessment and Plan Assessment and plan: Impression: acute metabolic encephalopathy unable to assess for dementia due to acute medical conditions which alter sensorium alcohol use disorder-on CIWA Recommendation: Psych will follow and hold off on make recommendations for scheduled meds until acute medical conditions improve Medical to continue CIWA to treat signs of alcohol withdrawal Delirium precautions as follows: 1. Frequently reorient patient and involve him/her in their care (simple explanations of procedures, tests, medications). 2. Lights on and shades open during daytime hours. 3. Write date and goals of care in a visible place. 4. Try to avoid unnecessary interruptions to sleep during nighttime hours. 5. Obtain glasses, hearing aids from home if patient uses these at baseline. 6. Avoid medications that may exacerbate delirium (especially narcotics, barbiturates, ambien, lunesta, and medications with excessive anticholinergic properties). melatonin will be used instead of trazodone due to higher risk of adverse effect s with trazodone. melatonin 5mg hs prn sleep dispo: unable to determine at this time. The medical team is recommended to continue active management of his physical health conditions. Mental status will be monitored throughout his stay. staffed with Dr. Green
[2018-06-07] MEDS: LOPRESSOR PO SCH (23:30)
[2018-06-08] MEDS: BROVANA NEBU IH SCH ×2 (09:32→20:55)
[2018-06-08] MEDS: PULMICORT IH SCH ×2 (09:32→20:56)
[2018-06-08] MEDS: DUONEB *Not for PRN Use IH SCH ×3 (09:33→20:56)
[2018-06-08] MEDS: FOLVITE PO SCH (10:59)
[2018-06-08] MEDS: VITAMIN B-1 PO SCH (10:59)
[2018-06-08] MEDS: PROTONIX PO SCH (10:59)
[2018-06-08] MEDS: LOVENOX SUB-Q SCH (10:59)
[2018-06-08] MEDS: FLOMAX PO SCH (10:59)
[2018-06-08] MEDS: CATAPRES PO SCH ×2 (11:00→21:50)
[2018-06-08] MEDS: SODIUM CHLORIDE PO SCH ×3 (11:00→21:50)
[2018-06-08] MEDS: SODIUM CHLORIDE FLUSH SYRINGE 10 ML IV SCH ×2 (11:08→21:50)
[2018-06-08] MEDS: Centrum Liq PO SCH (11:11)
[2018-06-08] MEDS: LOPRESSOR PO SCH ×2 (11:12→21:51)
--- NOTE | 2018-06-08 11:15 | Progress Note ---
Assessment and Plan Assessment and plan: 72-year-old man with history of alcoholism and likely dementia which has not been diagnosed with suspected by family. The patient's and he was dependent on her past the week 2 weeks prior. He was home by himself, is apparently drinking heavily not eating and not. He had been confused per his son and neighbors. His son and asked him to go to the ER , then he called the EMS. The patient was found to have a very low sodium, agitated and confused. CT head no acute findings Chest x-ray no acute findings -The patient is on [facility] protocol for alcohol withdrawal Continue saline IV fluid, replace potassium -UTI suspected, and ruled out via neg urine cx he received Steroids and nebulizers and pulmonary consults. -Dietitian consult was done and mentation is improved -, obtain echo, give Rate control meds as needed, cardiology consult appreciated, choice of nithya per cardiology Diagnoses Afib with RVR, PAF hypercoaguable state Alcohol dependence and withdrawal Acute metabolic encephalopathy Severe hyponatremia Hypercholesteremia Beer potomania Moderate malnutrition COPD exacerbation Tobacco abuse, current every day smoker Acute hypoxic respiratory failure Dementia severe malnutrition History Interval history: Patient has been confused, he is less agitated Review of systems Constitutional: No fevers, no malaise, no joint pains CVS: No chest pain, no orthopnea, no dyspnea on exertion, no pedal edema GI: No abdominal pain, no diarrhea, no vomiting, no constipation Respiratory: He has had wheezing and shortness of breath Hospitalist Physical - Physical exam Narrative exam: General.: , nontoxic HEENT: Moist mucous membranes, extraocular muscles intact, no lymphadenopathy Neck: supple Cardiac: S1-S2 heard Lungs: Decreased air entry, less wheezing that previously Abdomen: soft , nontender, nondistended, bowel sounds positive Extremities: no edema clubbing or cyanosis Skin: no rash or lesions Neurologic: Confused, moves all extremities Psych: calm, - Constitutional Vitals: Temp Pulse Resp BP Pulse Ox 97.4 F L 59 L 15 158/75 98 06/07/18 23:33 06/08/18 11:12 06/08/18 11:05 06/08/18 11:05 06/08/18 11:05 General appearance: Present: no acute distress Results - Labs CBC & Chem 7: 06/04/18 09:47 06/08/18 11:03 Labs: Laboratory Last Values WBC 5.3 K/mm3 (4.5-11.0) 06/04/18 09:47 RBC 3.81 M/mm3 (3.65-5.03) 06/04/18 09:47 Hgb 12.4 gm/dl (11.8-15.2) 06/04/18 09:47 Hct 36.1 % (35.5-45.6) 06/04/18 09:47 MCV 95 fl (84-94) H 06/04/18 09:47 MCH 33 pg (28-32) H 06/04/18 09:47 MCHC 34 % (32-34) 06/04/18 09:47 RDW 12.8 % (13.2-15.2) L 06/04/18 09:47 Plt Count 220 K/mm3 (140-440) 06/04/18 09:47 [place] % (Auto) [employer] 06/02/18 21:25 Add Manual Diff Complete 06/04/18 09:47 Total Counted 100 06/04/18 09:47 Seg Neuts % (Manual) 92.0 % (40.0-70.0) H 06/04/18 09:47 Band Neutrophils % 0 % 06/04/18 09:47 Lymphocytes % (Manual) 5.0 % (13.4-35.0) L 06/04/18 09:47 Reactive Lymphs % (Man) 0 % 06/04/18 09:47 Monocytes % (Manual) 3.0 % (0.0-7.3) 06/04/18 09:47 Eosinophils % (Manual) 0 % (0.0-4.3) 06/04/18 09:47 Basophils % (Manual) 0 % (0.0-1.8) 06/04/18 09:47 Metamyelocytes % 0 % 06/04/18 09:47 Myelocytes % 0 % 06/04/18 09:47 Promyelocytes % 0 % 06/04/18 09:47 Blast Cells % 0 % 06/04/18 09:47 Nucleated RBC % Not Reportable 06/04/18 09:47 Seg Neutrophils # Man 4.9 K/mm3 (1.8-7.7) 06/04/18 09:47 Band Neutrophils # 0.0 K/mm3 06/04/18 09:47 Lymphocytes # (Manual) 0.3 K/mm3 (1.2-5.4) L 06/04/18 09:47 Abs React Lymphs (Man) 0.0 K/mm3 06/04/18 09:47 Monocytes # (Manual) 0.2 K/mm3 (0.0-0.8) 06/04/18 09:47 Eosinophils # (Manual) 0.0 K/mm3 (0.0-0.4) 06/04/18 09:47 Basophils # (Manual) 0.0 K/mm3 (0.0-0.1) 06/04/18 09:47 Metamyelocytes # 0.0 K/mm3 06/04/18 09:47 Myelocytes # 0.0 K/mm3 06/04/18 09:47 Promyelocytes # 0.0 K/mm3 06/04/18 09:47 Blast Cells # 0.0 K/mm3 06/04/18 09:47 WBC Morphology Not Reportable 06/04/18 09:47 Hypersegmented Neuts Not Reportable 06/04/18 09:47 Hyposegmented Neuts Not Reportable 06/04/18 09:47 Hypogranular Neuts Not Reportable 06/04/18 09:47 Smudge Cells Not Reportable 06/04/18 09:47 Toxic Granulation 1+ 06/04/18 09:47 Toxic Vacuolation Not Reportable 06/04/18 09:47 Dohle Bodies Not Reportable 06/04/18 09:47 Pelger-Huet Anomaly Not Reportable 06/04/18 09:47 Dashawn Rods Not Reportable 06/04/18 09:47 Platelet Estimate Consistent w auto 06/04/18 09:47 Clumped Platelets Not Reportable 06/04/18 09:47 Plt Clumps, EDTA Not Reportable 06/04/18 09:47 Large Platelets Not Reportable 06/04/18 09:47 Giant Platelets Not Reportable 06/04/18 09:47 Platelet Satelliting Not Reportable 06/04/18 09:47 Plt Morphology Comment Not Reportable 06/04/18 09:47 RBC Morphology Normal 06/04/18 09:47 Dimorphic RBCs Not Reportable 06/04/18 09:47 Polychromasia Not Reportable 06/04/18 09:47 Hypochromasia Not Reportable 06/04/18 09:47 Poikilocytosis Not Reportable 06/04/18 09:47 Anisocytosis Not Reportable 06/04/18 09:47 Microcytosis Not Reportable 06/04/18 09:47 Macrocytosis Not Reportable 06/04/18 09:47 Spherocytes Not Reportable 06/04/18 09:47 Pappenheimer Bodies Not Reportable 06/04/18 09:47 Sickle Cells Not Reportable 06/04/18 09:47 Target Cells Not Reportable 06/04/18 09:47 Tear Drop Cells Not Reportable 06/04/18 09:47 Ovalocytes Not Reportable 06/04/18 09:47 Helmet Cells Not Reportable 06/04/18 09:47 [place] Bodies Not Reportable 06/04/18 09:47 [place] Rings Not Reportable 06/04/18 09:47 Mic Cells Not Reportable 06/04/18 09:47 Bite Cells Not Reportable 06/04/18 09:47 Crenated Cell Not Reportable 06/04/18 09:47 Elliptocytes Not Reportable 06/04/18 09:47 Acanthocytes (Spur) Not Reportable 06/04/18 09:47 Rouleaux Not Reportable 06/04/18 09:47 Hemoglobin C Crystals Not Reportable 06/04/18 09:47 Schistocytes Not Reportable 06/04/18 09:47 Malaria parasites Not Reportable 06/04/18 09:47 Rajesh Bodies Not Reportable 06/04/18 09:47 Hem Pathologist Commnt No 06/04/18 09:47 Sodium 126 mmol/L (137-145) L D 06/07/18 07:11 Potassium 3.6 mmol/L (3.6-5.0) 06/07/18 07:11 Chloride 86.1 mmol/L (98-107) L 06/07/18 07:11 Carbon Dioxide 30 mmol/L (22-30) 06/07/18 07:11 Anion Gap 14 mmol/L 06/07/18 07:11 BUN 9 mg/dL (9-20) 06/07/18 07:11 Creatinine 0.5 mg/dL (0.8-1.5) L 06/07/18 07:11 Estimated GFR > 60 ml/min 06/07/18 07:11 BUN/Creatinine Ratio 18 % 06/07/18 07:11 Glucose 129 mg/dL (75-100) H 06/07/18 07:11 POC Glucose 93 (70-105) 06/02/18 21:18 Osmolality 249 Mosm/kg 06/03/18 20:45 Calcium 8.1 mg/dL (8.4-10.2) L 06/07/18 07:11 Phosphorus 3.90 mg/dL (2.5-4.5) 06/04/18 09:47 Magnesium 1.80 mg/dL (1.7-2.3) 06/04/18 09:47 Total Bilirubin 0.40 mg/dL (0.1-1.2) 06/04/18 04:39 Direct Bilirubin < 0.2 mg/dL (0-0.2) 06/04/18 04:39 Indirect Bilirubin 0.2 mg/dL 06/04/18 04:39 AST 31 units/L (5-40) 06/04/18 04:39 ALT 26 units/L (7-56) 06/04/18 04:39 Alkaline Phosphatase 66 units/L (35-129) 06/04/18 04:39 Ammonia 23.0 umol/L (25-60) L 06/03/18 14:41 Total Creatine Kinase 420 units/L (55-170) H 06/02/18 21:25 Troponin T < 0.010 ng/mL (0.00-0.029) 06/02/18 21:25 NT-Pro-B Natriuret Pep 379.8 pg/mL (0-900) 06/02/18 21:25 Total Protein 5.5 g/dL (6.3-8.2) L 06/04/18 04:39 Albumin 3.1 g/dL (3.9-5) L 06/04/18 04:39 Albumin/Globulin Ratio 1.3 % 06/04/18 04:39 TSH 1.100 mlU/mL (0.270-4.200) 06/03/18 20:45 Urine Color Yellow (Yellow) 06/02/18 22:03 Urine Turbidity Slightly-cloudy (Clear) 06/02/18 22:03 Urine pH 6.0 (5.0-7.0) 06/02/18 22:03 Ur Specific [place] 1.004 (1.003-1.030) 06/02/18 22:03 Urine Protein <15 mg/dl mg/dL (Negative) 06/02/18 22:03 Urine Glucose (UA) Neg mg/dL (Negative) 06/02/18 22:03 Urine Ketones Neg mg/dL (Negative) 06/02/18 22:03 Urine Blood Sm (Negative) 06/02/18 22:03 Urine Nitrite Neg (Negative) 06/02/18 22:03 Urine Bilirubin Neg (Negative) 06/02/18 22:03 Urine Urobilinogen 2.0 mg/dL (<2.0) 06/02/18 22:03 Ur Leukocyte Esterase Lg (Negative) 06/02/18 22:03 Urine WBC (Auto) 24.0 /HPF (0.0-6.0) H 06/02/18 22:03 Urine RBC (Auto) 3.0 /HPF (0.0-6.0) 06/02/18 22:03 U Epithel Cells (Auto) < 1.0 /HPF (0-13.0) 06/02/18 22:03 Urine Bacteria (Auto) 1+ /HPF (Negative) 06/02/18 22:03 Urine Osmolality 203 Mosm/kg 06/02/18 22:02 Urine Sodium 20 mmol/L 06/02/18 22:02 Active Medications - Current Medications Current Medications: Generic Name Dose Route Start Last Admin Trade Name Freq PRN Reason Stop Dose Admin Acetaminophen 650 mg 06/03/18 00:05 06/04/18 22:18 Tylenol PO 650 mg Q4H PRN Administration Pain MILD(1-3)/Fever >100.5/CHANCE Albuterol 2.5 mg 06/03/18 13:11 06/03/18 15:01 Proventil IH 2.5 mg Q4HRT PRN Administration Shortness Of Breath Albuterol/Ipratropium 1 ampul 06/05/18 20:00 06/08/18 09:33 Duoneb *Not For Prn Use* IH Not Given TIDRT CINDA Arformoterol Tartrate 15 mcg 06/03/18 20:00 06/08/18 09:32 Brovana Nebu IH 15 mcg Q12HRT CINDA Administration Budesonide 0.5 mg 06/03/18 20:00 06/08/18 09:32 Pulmicort IH 0.5 mg Q12HRT CINDA Administration Clonidine HCl 0.1 mg 06/06/18 11:00 06/08/18 11:00 Catapres PO 0.1 mg Q12HR CINDA Administration Enoxaparin Sodium 40 mg 06/03/18 10:00 06/08/18 10:59 Lovenox SUB-Q 40 mg QDAY@1000 CINDA Administration Folic Acid 1 mg 06/04/18 10:00 06/08/18 10:59 Folvite PO 1 mg QDAY CINDA Administration Hydralazine HCl 10 mg 06/06/18 12:10 Apresoline IV Q4H PRN BP >160/100 Sodium Chloride 1,000 mls @ 75 mls/hr 06/03/18 01:00 06/06/18 05:07 Nacl 0.9% 1000 Ml IV 75 mls/hr DIRECT CINDA Administration Azithromycin 500 mg/ Sodium 250 mls @ 250 mls/hr 06/05/18 15:30 06/07/18 11:01 Chloride IV 06/08/18 15:29 250 mls/hr Q24HR CINDA Administration Dextrose/Sodium Chloride 1,000 mls @ 125 mls/hr 06/06/18 23:45 06/07/18 01:12 D5ns IV 125 mls/hr DIRECT CINDA Administration Lorazepam 2 mg 06/03/18 14:00 Ativan PO Q1H PRN CIWA-Ar 8-15 Lorazepam 4 mg 06/03/18 14:00 06/07/18 23:43 Ativan IV 4 mg Q1H PRN Administration CIWA-Ar 16-25 Lorazepam 4 mg 06/03/18 14:00 Ativan IV Q15MIN PRN CIWA-Ar >25 Lorazepam 1 mg 06/03/18 14:01 Ativan PO Q4H PRN Agitation Lorazepam 0.5 mg 06/05/18 16:15 06/06/18 21:46 Ativan IV 0.5 mg Q4H PRN Administration Agitation Melatonin 5 mg 06/07/18 19:41 Melatonin PO QHS PRN Sleep Methylprednisolone Sodium Succinate 60 mg 06/05/18 15:00 06/07/18 23:28 Solu-Medrol IV 60 mg Q8HR CINDA Administration Metoprolol Tartrate 5 mg 06/07/18 13:02 Lopressor IV Q6H PRN Sustained HR >130 Metoprolol Tartrate 25 mg 06/07/18 22:00 06/08/18 11:12 Lopressor PO Not Given BID CINDA Multivitamins 5 ml 06/04/18 10:00 06/08/18 11:11 Centrum Liq PO 5 ml QDAY CINDA Administration Ondansetron HCl 4 mg 06/03/18 00:05 Zofran IV Q8H PRN Nausea And Vomiting Pantoprazole Sodium 40 mg 06/06/18 10:00 06/08/18 10:59 Protonix PO 40 mg DAILY CINDA Administration Sodium Chloride 10 ml 06/03/18 10:00 06/08/18 11:08 Sodium Chloride Flush Syringe 10 Ml IV 10 ml BID CINDA Administration Sodium Chloride 10 ml 06/03/18 00:05 Sodium Chloride Flush Syringe 10 Ml IV PRN PRN LINE FLUSH Sodium Chloride 2 gm 06/07/18 14:00 06/08/18 11:00 Sodium Chloride PO 2 gm TID CINDA Administration Tamsulosin HCl 0.4 mg 06/03/18 12:00 06/08/18 10:59 Flomax PO 0.4 mg QDAY CINDA Administration Thiamine HCl 100 mg 06/04/18 10:00 06/08/18 10:59 Vitamin B-1 PO 100 mg QDAY CINDA Administration
[2018-06-08] MEDS: SOLU-Medrol IV SCH ×4 (11:20→21:50)
[2018-06-08] MEDS: ZITHROMAX 500 MG in NACL 0.9% 250ML 250 ML IV SCH (11:23)
[2018-06-08 11:48] LABS: BUN/Creatinine Ratio 34; Blood Urea Nitrogen 17 mg/dL (9-20); Calcium 8.8 mg/dL (8.4-10.2); Hemolysis Index 77
--- NOTE | 2018-06-08 14:05 | Progress Note ---
Assessment and Plan Impression: * Symptomatic hyponatremia --UOsm 203, Felix 20 --TSH wnl * COPD exacerbation * Urinary tract infection * Hypertension * Alcohol abuse Plan: * SNa better today, stopped remeron, placed on fluid restriction * Continue NaCl tablets * Strict I/O * Empiric abx per primary * AM labs Subjective Date of service: 06/08/18 Principal diagnosis: hyponatremia Interval history: resting well in bed today Objective - Exam Narrative Exam: General appearance: well-developed, well-nourished EENT: ATNC Respiratory: Present: Wheezes (occasional) Cardiology: regular, S1S2 Gastrointestinal: normal, no tenderness, no distended Neurologic: other (no edema) Psychiatric: cooperative - Vital Signs Vital signs: Vital Signs - 12hr 06/08/18 06/08/18 06/08/18 09:32 09:42 10:00 Pulse Rate 59 L Pulse Rate [ 59 L 47 L Anterior Bilateral Throughout] Pulse Rate [ 59 L Right Radial] Respiratory 16 Rate Respiratory 20 20 Rate [Anterior Bilateral Throughout] Blood Pressure [Left] O2 Sat by Pulse 98 98 Oximetry 06/08/18 06/08/18 06/08/18 11:05 11:12 13:51 Pulse Rate 59 L 59 L Pulse Rate [ 53 L Anterior Bilateral Throughout] Pulse Rate [ Right Radial] Respiratory 15 Rate Respiratory 18 Rate [Anterior Bilateral Throughout] Blood Pressure 158/75 [Left] O2 Sat by Pulse 98 Oximetry - Lab 06/04/18 09:47 06/08/18 11:03 Most recent lab results Calcium 8.8 mg/dL (8.4-10.2) 06/08/18 11:03 Phosphorus 3.90 mg/dL (2.5-4.5) 06/04/18 09:47 Magnesium 1.80 mg/dL (1.7-2.3) 06/04/18 09:47 Urine Sodium 20 mmol/L 06/02/18 22:02 Medications & Allergies - Medications Allergies/Adverse Reactions: Allergies diphenhydramine HCl [From Benadryl] Allergy (Verified 09/24/14 11:56) Unknown HALLUCINATIONS Home Medications: Home Medications Medication Instructions Recorded Confirmed Last Taken Type Albuterol *Only Ed* [Proventil 2.5 mg IH Q4HRT PRN #1 nebu 10/03/14 06/03/18 Unknown Rx 0.5% NEBS] Folic Acid [Folvite] 1 mg PO QDAY #30 tablet 10/03/14 06/03/18 Unknown Rx Furosemide [Lasix TAB] 20 mg PO QDAY #30 tablet 10/03/14 06/03/18 Unknown Rx Metoprolol [Lopressor TAB] 12.5 mg PO BID #60 tablet 10/03/14 06/03/18 Unknown Rx Multivitamins Liq [Multiple 5 ml PO QDAY 30 Days oral.liqd 10/03/14 06/03/18 Unknown Rx Vitamin Liq (Theragran)] Thiamine [Vitamin B-1] 100 mg PO QDAY #30 tablet 10/03/14 06/03/18 Unknown Rx Active Medications: Generic Name Dose Route Start Last Admin Trade Name Freq PRN Reason Stop Dose Admin Acetaminophen 650 mg 06/03/18 00:05 06/04/18 22:18 Tylenol PO 650 mg Q4H PRN Administration Pain MILD(1-3)/Fever >100.5/CHANCE Albuterol 2.5 mg 06/03/18 13:11 06/03/18 15:01 Proventil IH 2.5 mg Q4HRT PRN Administration Shortness Of Breath Albuterol/Ipratropium 1 ampul 06/05/18 20:00 06/08/18 13:51 Duoneb *Not For Prn Use* IH 1 ampul TIDRT CINDA Administration Arformoterol Tartrate 15 mcg 06/03/18 20:00 06/08/18 09:32 Brovana Nebu IH 15 mcg Q12HRT CINDA Administration Budesonide 0.5 mg 06/03/18 20:00 06/08/18 09:32 Pulmicort IH 0.5 mg Q12HRT CINDA Administration Clonidine HCl 0.1 mg 06/06/18 11:00 06/08/18 11:00 Catapres PO 0.1 mg Q12HR CINDA Administration Enoxaparin Sodium 40 mg 06/03/18 10:00 06/08/18 10:59 Lovenox SUB-Q 40 mg QDAY@1000 CINDA Administration Folic Acid 1 mg 06/04/18 10:00 06/08/18 10:59 Folvite PO 1 mg QDAY CINDA Administration Hydralazine HCl 10 mg 06/06/18 12:10 Apresoline IV Q4H PRN BP >160/100 Sodium Chloride 1,000 mls @ 75 mls/hr 06/03/18 01:00 06/06/18 05:07 Nacl 0.9% 1000 Ml IV 75 mls/hr DIRECT CINDA Administration Azithromycin 500 mg/ Sodium 250 mls @ 250 mls/hr 06/05/18 15:30 06/08/18 11:23 Chloride IV 06/08/18 15:29 250 mls/hr Q24HR CINDA Administration Dextrose/Sodium Chloride 1,000 mls @ 125 mls/hr 06/06/18 23:45 06/07/18 01:12 D5ns IV 125 mls/hr DIRECT CINDA Administration Lorazepam 2 mg 06/03/18 14:00 Ativan PO Q1H PRN CIWA-Ar 8-15 Lorazepam 4 mg 06/03/18 14:00 06/07/18 23:43 Ativan IV 4 mg Q1H PRN Administration CIWA-Ar 16-25 Lorazepam 4 mg 06/03/18 14:00 Ativan IV Q15MIN PRN CIWA-Ar >25 Lorazepam 1 mg 06/03/18 14:01 06/08/18 12:14 Ativan PO 1 mg Q4H PRN Administration Agitation Lorazepam 0.5 mg 06/05/18 16:15 06/06/18 21:46 Ativan IV 0.5 mg Q4H PRN Administration Agitation Melatonin 5 mg 06/07/18 19:41 Melatonin PO QHS PRN Sleep Methylprednisolone Sodium Succinate 60 mg 06/05/18 15:00 06/08/18 11:49 Solu-Medrol IV 60 mg Q8HR CINDA Administration Metoprolol Tartrate 5 mg 06/07/18 13:02 Lopressor IV Q6H PRN Sustained HR >130 Metoprolol Tartrate 25 mg 06/07/18 22:00 06/08/18 11:12 Lopressor PO Not Given BID CINDA Multivitamins 5 ml 06/04/18 10:00 06/08/18 11:11 Centrum Liq PO 5 ml QDAY CINDA Administration Ondansetron HCl 4 mg 06/03/18 00:05 Zofran IV Q8H PRN Nausea And Vomiting Pantoprazole Sodium 40 mg 06/06/18 10:00 06/08/18 10:59 Protonix PO 40 mg DAILY CINDA Administration Sodium Chloride 10 ml 06/03/18 10:00 06/08/18 11:08 Sodium Chloride Flush Syringe 10 Ml IV 10 ml BID CINDA Administration Sodium Chloride 10 ml 06/03/18 00:05 Sodium Chloride Flush Syringe 10 Ml IV PRN PRN LINE FLUSH Sodium Chloride 2 gm 06/07/18 14:00 06/08/18 11:00 Sodium Chloride PO 2 gm TID CINDA Administration Tamsulosin HCl 0.4 mg 06/03/18 12:00 06/08/18 10:59 Flomax PO 0.4 mg QDAY CINDA Administration Thiamine HCl 100 mg 06/04/18 10:00 06/08/18 10:59 Vitamin B-1 PO 100 mg QDAY CINDA Administration
--- NOTE | 2018-06-08 15:33 | Progress Note ---
Assessment and Plan Paroxysmal atrial flutter in 72 yo male,with hx. of HTN,underlying alcoholic hx. 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 06/08/2018>patient comfortable,in S.R,consider anticoagulation later. Subjective Date of service: 06/08/18 Principal diagnosis: hyponatremia Interval history: patient is comfortable.No particular complaints. Objective Vital Signs Temp Pulse Pulse Pulse Resp Resp Resp 06/08/18 14:01 52 L 18 06/08/18 13:51 53 L 18 06/08/18 11:12 59 L 06/08/18 11:05 59 L 15 06/08/18 10:00 59 L 59 L 16 06/08/18 09:42 47 L 20 06/08/18 09:32 59 L 20 06/08/18 00:00 90 18 06/07/18 23:33 97.4 F L 71 16 06/07/18 23:30 94 H 06/07/18 21:53 18 06/07/18 21:03 74 14 06/07/18 20:37 71 14 06/07/18 20:21 93 H 06/07/18 19:10 94 H 23 06/07/18 19:00 94 H 17 06/07/18 18:50 97 H 23 06/07/18 18:40 99 H 24 06/07/18 18:30 106 H 21 06/07/18 18:20 103 H 12 06/07/18 18:10 100 H 14 06/07/18 18:00 99 H 26 H 06/07/18 17:50 99 H 14 06/07/18 17:40 100 H 14 06/07/18 17:33 101 H 06/07/18 16:47 97.4 F L 06/07/18 16:45 72 20 BP BP Pulse Ox 06/08/18 14:01 06/08/18 13:51 06/08/18 11:12 06/08/18 11:05 158/75 98 06/08/18 10:00 98 06/08/18 09:42 06/08/18 09:32 98 06/08/18 00:00 06/07/18 23:33 128/76 93 06/07/18 23:30 118/80 06/07/18 21:53 06/07/18 21:03 06/07/18 20:37 98 06/07/18 20:21 06/07/18 19:10 118/80 100 06/07/18 19:00 118/80 100 06/07/18 18:50 128/77 100 06/07/18 18:40 128/77 100 06/07/18 18:30 128/77 100 06/07/18 18:20 119/74 06/07/18 18:10 119/74 100 06/07/18 18:00 119/74 100 06/07/18 17:50 138/93 100 06/07/18 17:40 138/93 100 06/07/18 17:33 98 06/07/18 16:47 06/07/18 16:45 121/67 99 - Physical Examination Neck: Positive: neck supple Cardiac: Positive: Reg Rate and Rhythm Lungs: Positive: Normal Breath Sounds Neuro: Positive: Other (responds to verbal commands,opens eys,could not comminicate.) Abdomen: Positive: Unremarkable Skin: Negative: Clear Extremities: Absent: edema - Labs and Meds Comprehensive Metabolic Panel 06/08/18 Range/Units 11:03 Sodium 134 L D (137-145) mmol/L Potassium 4.7 D (3.6-5.0) mmol/L Chloride 92.2 L (98-107) mmol/L Carbon Dioxide 28 (22-30) mmol/L BUN 17 (9-20) mg/dL Creatinine 0.5 L (0.8-1.5) mg/dL Glucose 106 H (75-100) mg/dL Calcium 8.8 (8.4-10.2) mg/dL
--- NOTE | 2018-06-08 15:50 | Progress Note ---
Assessment and Plan Patient is sleeping on 2L O2. O2 saturation is 97%. No acute respiratory distress. - Patient Problems (1) COPD exacerbation Current Visit: No Status: Acute Plan to address problem: According to the history, possible COPD. Patient on 2L O2 Albuterol/Atrovent aerosol treatments q6hrs Continue solumedrol Continue Lovenox Continue Protonix Continue Ceftriaxone recommend to add azithromycin (2) Acute hyponatremia Current Visit: Yes Status: Acute Plan to address problem: management as per nephrology sodium improved to 134 (3) Altered mental status Current Visit: Yes Status: Acute Plan to address problem: Watch altered mental status, may improve once sodium normalizes. Also watch for DTs. (4) Alcohol abuse Current Visit: No Status: Acute Plan to address problem: Watch for DTs. Subjective Date of service: 06/08/18 Principal diagnosis: hyponatremia Interval history: Patient is sleeping at this time on 2L O2. O2 saturation is 97%. No acute resp iratory distress. Objective Vital Signs - 12hr 06/08/18 06/08/18 06/08/18 09:32 09:42 10:00 Pulse Rate 59 L Pulse Rate [ 59 L 47 L Anterior Bilateral Throughout] Pulse Rate [ 59 L Right Radial] Respiratory 16 Rate Respiratory 20 20 Rate [Anterior Bilateral Throughout] Blood Pressure [Left] O2 Sat by Pulse 98 98 Oximetry 06/08/18 06/08/18 06/08/18 11:05 11:12 13:51 Pulse Rate 59 L 59 L Pulse Rate [ 53 L Anterior Bilateral Throughout] Pulse Rate [ Right Radial] Respiratory 15 Rate Respiratory 18 Rate [Anterior Bilateral Throughout] Blood Pressure 158/75 [Left] O2 Sat by Pulse 98 Oximetry 06/08/18 14:01 Pulse Rate Pulse Rate [ 52 L Anterior Bilateral Throughout] Pulse Rate [ Right Radial] Respiratory Rate Respiratory 18 Rate [Anterior Bilateral Throughout] Blood Pressure [Left] O2 Sat by Pulse Oximetry Constitutional: no acute distress, alert, other (confused) Eyes: non-icteric ENT: oropharynx moist Neck: supple, no JVD Effort: normal Ascultation: Bilateral: other (prolonged expiratory phase) Cardiovascular: regular rate and rhythm Gastrointestinal: normoactive bowel sounds, soft, non-tender Integumentary: normal Extremities: no cyanosis, no edema Neurologic: non-focal exam, pupils equal and round, CN II-XII normal Psychiatric: other (confused) CBC and BMP: 06/04/18 09:47 06/09/18 06:13 Abnormal lab findings: Abnormal Labs 06/02/18 06/02/18 06/02/18 21:25 21:25 22:03 MCV MCH 33 H MCHC 35 H RDW 12.8 L Seg Neuts % (Manual) 80.0 H Lymphocytes % (Manual) Lymphocytes # (Manual) 0.8 L Sodium 109 L* Potassium Chloride 71.3 L BUN 6 L Creatinine 0.5 L Glucose Calcium Ammonia Total Creatine Kinase 420 H Total Protein Albumin Urine WBC (Auto) 24.0 H 06/03/18 06/03/18 06/03/18 00:15 06:27 09:42 MCV MCH MCHC RDW Seg Neuts % (Manual) Lymphocytes % (Manual) Lymphocytes # (Manual) Sodium 113 L* 118 L* 116 L* Potassium 3.5 L 3.5 L Chloride 77.2 L 79.1 L 78.2 L BUN 5 L 4 L 4 L Creatinine 0.4 L 0.5 L 0.4 L Glucose Calcium 8.2 L 7.9 L 8.1 L Ammonia Total Creatine Kinase Total Protein Albumin Urine WBC (Auto) 06/03/18 06/03/18 06/03/18 14:41 14:41 20:45 MCV MCH MCHC RDW Seg Neuts % (Manual) Lymphocytes % (Manual) Lymphocytes # (Manual) Sodium 114 L* 118 L* Potassium 3.1 L Chloride 76.3 L 79.7 L BUN 4 L 3 L Creatinine 0.5 L 0.4 L Glucose Calcium 8.1 L 8.3 L Ammonia 23.0 L Total Creatine Kinase Total Protein Albumin Urine WBC (Auto) 06/04/18 06/04/18 06/04/18 04:39 09:47 09:47 MCV 95 H MCH 33 H MCHC RDW 12.8 L Seg Neuts % (Manual) 92.0 H Lymphocytes % (Manual) 5.0 L Lymphocytes # (Manual) 0.3 L Sodium 123 L Potassium Chloride 85.2 L BUN 5 L Creatinine 0.5 L Glucose 129 H Calcium 8.3 L Ammonia Total Creatine Kinase Total Protein 5.5 L Albumin 3.1 L Urine WBC (Auto) 06/05/18 06/06/18 06/07/18 04:29 05:25 07:11 MCV MCH MCHC RDW Seg Neuts % (Manual) Lymphocytes % (Manual) Lymphocytes # (Manual) Sodium 126 L 133 L D 126 L D Potassium Chloride 90.4 L 95.1 L 86.1 L BUN 8 L Creatinine 0.5 L 0.5 L 0.5 L Glucose 170 H 123 H 129 H Calcium 8.2 L 8.1 L Ammonia Total Creatine Kinase Total Protein Albumin Urine WBC (Auto) 06/08/18 11:03 MCV MCH MCHC RDW Seg Neuts % (Manual) Lymphocytes % (Manual) Lymphocytes # (Manual) Sodium 134 L D Potassium Chloride 92.2 L BUN Creatinine 0.5 L Glucose 106 H Calcium Ammonia Total Creatine Kinase Total Protein Albumin Urine WBC (Auto) Chest x-ray: report reviewed (REPORTED NEGATIVE SINGLE VIEW CHEST.), image reviewed
[2018-06-08] MEDS: D5NS 1,000 ML IV SCH (21:59)
[2018-06-09] MEDS: ATIVAN IV PRN (01:58)
[2018-06-09] MEDS: SOLU-Medrol IV SCH ×2 (06:35→14:06)
[2018-06-09 07:04] LABS: BUN/Creatinine Ratio 33; Blood Urea Nitrogen 20 mg/dL (9-20); Calcium 8.5 mg/dL (8.4-10.2); Hemolysis Index 8
[2018-06-09] MEDS: PULMICORT IH SCH ×2 (08:14→21:09)
[2018-06-09] MEDS: BROVANA NEBU IH SCH ×2 (08:14→21:09)
[2018-06-09] MEDS: DUONEB *Not for PRN Use IH SCH ×3 (08:15→21:40)
--- NOTE | 2018-06-09 09:48 | Progress Note ---
Subjective - Reason for Consult Consult date: 06/09/18 Reason for consult: Psychiatry Follow-up - Chief Complaint Chief complaint: "The patient is somewhat incoherent" 72 M seen on the telemetry floor for psychiatric consult. He has questionable dementia. Today the patient is cam, but somewhat disorganized during the assessment. He could not answer most questions logically when asked. Currently, the patient is in restraints. No gestures of SI/HI's. Mental Status Exam - Vital signs Last Vital Signs Temp 97.3 F L 06/09/18 07:46 Pulse 61 06/09/18 08:25 Resp 18 06/09/18 08:25 BP 160/85 06/09/18 07:46 Pulse Ox 97 06/09/18 08:14 - Exam Narrative exam: MSE: Appearance: calm Behavior: regular eye contact Speech: somewhat incoherent Mood: "okay" Affect: congruent to mood Thought Process: somewhat disorganized Thought Content: no gestures of SI/HI's Motor Activity: sitting up in the bed Cognition: unable to assess Insight: unable to assess Judgment: unable to assess Assessment and Plan Impression: Hx of Alcohol use DO per the chart. Today the patient is calm, but somewhat disorganized during the assessment. The patient is in restraints. Medical: Acute Metabolic Encephalopathy Recommendation: Gather collateral information to help determine proper treatment. Continue Melatonin 5 mg PO HS PRN for sleep and start Haldol 5 mg IM Q6hrs PRN for acute psychosis. Recommend daily assessment of the need for CIWA. Delirium precautions as follows: 1. Frequently reorient patient and involve him/her in their care (simple explanations of procedures, tests, medications). 2. Lights on and shades open during daytime hours. 3. Write date and goals of care in a visible place. 4. Try to avoid unnecessary interruptions to sleep during nighttime hours. 5. Obtain glasses, hearing aids from home if patient uses these at baseline. 6. Avoid medications that may exacerbate delirium (especially narcotics, barbiturates, ambien, lunesta, and medications with excessive anticholinergic properties). 7. Recommend 1:1 sitter. 8. Only use Ativan per the CIWA Protocol. Dispo: Once a a psy assessment is completed, proper dispo will be determined. Will staff with Dr. Khari Green
[2018-06-09] MEDS: D5NS 1,000 ML IV SCH (10:04)
[2018-06-09] MEDS: LOPRESSOR PO SCH (10:05)
[2018-06-09] MEDS: FOLVITE PO SCH (10:05)
[2018-06-09] MEDS: CATAPRES PO SCH (10:05)
[2018-06-09] MEDS: PROTONIX PO SCH (10:05)
[2018-06-09] MEDS: VITAMIN B-1 PO SCH (10:05)
[2018-06-09] MEDS: SODIUM CHLORIDE PO SCH ×2 (10:05→14:24)
[2018-06-09] MEDS: LOVENOX SUB-Q SCH (10:06)
[2018-06-09] MEDS: FLOMAX PO SCH (10:06)
[2018-06-09] MEDS: Centrum Liq PO SCH (10:06)
[2018-06-09] MEDS: SODIUM CHLORIDE FLUSH SYRINGE 10 ML IV SCH (10:06)
--- NOTE | 2018-06-09 10:15 | Progress Note ---
Assessment and Plan - Patient Problems (1) Acute hyponatremia Current Visit: Yes Status: Acute Plan to address problem: Acute hyponatremia resolving I reviewed urine electrolytes urine sodium 20 urine osmolarity 203 Since urine osmolality is greater than 100 is likely some component of inappropriate ADH production However given his significant alcohol abuse likely some complaints of impaired solute intake in the setting of excessive fluid intake continue salt tablets 2 g 3 times a day (2) Hypertension Current Visit: No Status: Acute Qualifiers: Hypertension type: essential hypertension Qualified Code(s): I10 - Cassandra webster (primary) hypertension Plan to address problem: HTN: UNControlled Monitor for alcohol withdrawal Continue current medications (3) Alcohol abuse Current Visit: No Status: Acute Plan to address problem: Alcohol abuse monitor for alcohol withdrawal Continue thiamine (4) COPD exacerbation Current Visit: No Status: Acute Plan to address problem: COPD exacerbation currently on Solu-Medrol 3 times a day Subjective Principal diagnosis: hyponatremia Interval history: 72-year-old gentleman, COPD, hypertension, alcohol abuse found to have severe hyponatremia Patient seen today mostly nonverbal Has tremors has no edema Objective - Vital Signs Vital signs: Vital Signs - 12hr 06/09/18 06/09/18 06/09/18 05:54 07:46 08:14 Temperature 97.4 F L 97.3 F L Pulse Rate [ 58 L Anterior Bilateral Throughout] Respiratory 22 18 Rate Respiratory 18 Rate [Anterior Bilateral Throughout] Blood Pressure 157/82 160/85 O2 Sat by Pulse 97 Oximetry 06/09/18 08:25 Temperature Pulse Rate [ 61 Anterior Bilateral Throughout] Respiratory Rate Respiratory 18 Rate [Anterior Bilateral Throughout] Blood Pressure O2 Sat by Pulse Oximetry - General Appearance General appearance: well-developed, well-nourished EENT: ATNC, PERRL, mucous membranes moist Neck: no JVD Respiratory: Present: Clear to Ascultation Cardiology: regular, S1S2 Gastrointestinal: normal, normoactive bowel sounds Integumentary: no rash Neurologic: no focal deficit, confused Musculoskeletal: deferred Psychiatric: depressed - Lab 06/04/18 09:47 06/09/18 06:13 Most recent lab results Calcium 8.5 mg/dL (8.4-10.2) 06/09/18 06:13 Phosphorus 3.90 mg/dL (2.5-4.5) 06/04/18 09:47 Magnesium 1.80 mg/dL (1.7-2.3) 06/04/18 09:47 Urine Sodium 20 mmol/L 06/02/18 22:02 - Imaging Chest x-ray: image reviewed Medications & Allergies - Medications Allergies/Adverse Reactions: Allergies diphenhydramine HCl [From Benadryl] Allergy (Verified 09/24/14 11:56) Unknown HALLUCINATIONS Home Medications: Home Medications Medication Instructions Recorded Confirmed Last Taken Type Albuterol *Only Ed* [Proventil 2.5 mg IH Q4HRT PRN #1 nebu 10/03/14 06/03/18 Unknown Rx 0.5% NEBS] Folic Acid [Folvite] 1 mg PO QDAY #30 tablet 10/03/14 06/03/18 Unknown Rx Furosemide [Lasix TAB] 20 mg PO QDAY #30 tablet 10/03/14 06/03/18 Unknown Rx Metoprolol [Lopressor TAB] 12.5 mg PO BID #60 tablet 10/03/14 06/03/18 Unknown Rx Multivitamins Liq [Multiple 5 ml PO QDAY 30 Days oral.liqd 10/03/14 06/03/18 Unknown Rx Vitamin Liq (Theragran)] Thiamine [Vitamin B-1] 100 mg PO QDAY #30 tablet 10/03/14 06/03/18 Unknown Rx Active Medications: Generic Name Dose Route Start Last Admin Trade Name Freq PRN Reason Stop Dose Admin Acetaminophen 650 mg 06/03/18 00:05 06/04/18 22:18 Tylenol PO 650 mg Q4H PRN Administration Pain MILD(1-3)/Fever >100.5/CHANCE Albuterol 2.5 mg 06/03/18 13:11 06/03/18 15:01 Proventil IH 2.5 mg Q4HRT PRN Administration Shortness Of Breath Albuterol/Ipratropium 1 ampul 06/05/18 20:00 06/09/18 08:15 Duoneb *Not For Prn Use* IH Not Given TIDRT CINDA Arformoterol Tartrate 15 mcg 06/03/18 20:00 06/09/18 08:14 Brovana Nebu IH 15 mcg Q12HRT CINDA Administration Budesonide 0.5 mg 06/03/18 20:00 06/09/18 08:14 Pulmicort IH 0.5 mg Q12HRT CINDA Administration Clonidine HCl 0.1 mg 06/06/18 11:00 06/09/18 10:05 Catapres PO 0.1 mg Q12HR CINDA Administration Enoxaparin Sodium 40 mg 06/03/18 10:00 06/09/18 10:06 Lovenox SUB-Q 40 mg QDAY@1000 CINDA Administration Folic Acid 1 mg 06/04/18 10:00 06/09/18 10:05 Folvite PO 1 mg QDAY CINDA Administration Haloperidol Lactate 5 mg 06/09/18 09:51 Haldol IM Q6H PRN Acute Psychosis Hydralazine HCl 10 mg 06/06/18 12:10 Apresoline IV Q4H PRN BP >160/100 Sodium Chloride 1,000 mls @ 75 mls/hr 06/03/18 01:00 06/06/18 05:07 Nacl 0.9% 1000 Ml IV 75 mls/hr DIRECT CINDA Administration Dextrose/Sodium Chloride 1,000 mls @ 125 mls/hr 06/06/18 23:45 06/09/18 10:04 D5ns IV 125 mls/hr DIRECT CINDA Administration Lorazepam 2 mg 06/03/18 14:00 Ativan PO Q1H PRN CIWA-Ar 8-15 Lorazepam 4 mg 06/03/18 14:00 06/07/18 23:43 Ativan IV 4 mg Q1H PRN Administration CIWA-Ar 16-25 Lorazepam 4 mg 06/03/18 14:00 Ativan IV Q15MIN PRN CIWA-Ar >25 Melatonin 5 mg 06/07/18 19:41 Melatonin PO QHS PRN Sleep Methylprednisolone Sodium Succinate 60 mg 06/05/18 15:00 06/09/18 06:35 Solu-Medrol IV 60 mg Q8HR CINDA Administration Metoprolol Tartrate 5 mg 06/07/18 13:02 Lopressor IV Q6H PRN Sustained HR >130 Metoprolol Tartrate 25 mg 06/07/18 22:00 06/09/18 10:05 Lopressor PO 25 mg BID CINDA Administration Multivitamins 5 ml 06/04/18 10:00 06/09/18 10:06 Centrum Liq PO 5 ml QDAY CINDA Administration Ondansetron HCl 4 mg 06/03/18 00:05 Zofran IV Q8H PRN Nausea And Vomiting Pantoprazole Sodium 40 mg 06/06/18 10:00 06/09/18 10:05 Protonix PO 40 mg DAILY CINDA Administration Sodium Chloride 10 ml 06/03/18 10:00 06/09/18 10:06 Sodium Chloride Flush Syringe 10 Ml IV 10 ml BID CINDA Administration Sodium Chloride 10 ml 06/03/18 00:05 Sodium Chloride Flush Syringe 10 Ml IV PRN PRN LINE FLUSH Sodium Chloride 2 gm 06/07/18 14:00 06/09/18 10:05 Sodium Chloride PO 2 gm TID CINDA Administration Tamsulosin HCl 0.4 mg 06/03/18 12:00 06/09/18 10:06 Flomax PO 0.4 mg QDAY CINDA Administration Thiamine HCl 100 mg 06/04/18 10:00 06/09/18 10:05 Vitamin B-1 PO 100 mg QDAY CINDA Administration
--- NOTE | 2018-06-09 11:25 | Progress Note ---
Assessment and Plan Assessment and plan: 72-year-old man with history of alcoholism and likely dementia which has not been diagnosed with suspected by family. The patient's and he was dependent on her past the week 2 weeks prior. He was home by himself, is apparently drinking heavily not eating and not. He had been confused per his son and neighbors. His son and asked him to go to the ER , then he called the EMS. The patient was found to have a very low sodium, agitated and confused. CT head no acute findings Chest x-ray no acute findings -The patient is on CIUT protocol for alcohol withdrawal Continue saline IV fluid, salt tabs, k was replaced -UTI suspected, and ruled out via neg urine cx he received Steroids and nebulizers and pulmonary consults. 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 -dc to home hospice tomorrow Diagnoses Afib with RVR, PAF hypercoaguable state Alcohol dependence and withdrawal Acute metabolic encephalopathy Severe hyponatremia Hypercholesteremia Beer potomania Moderate malnutrition COPD exacerbation Tobacco abuse, current every day smoker Acute hypoxic respiratory failure Dementia severe malnutrition History Interval history: Patient has been confused, he is less agitated Review of systems Constitutional: No fevers, no malaise, no joint pains CVS: No chest pain, no orthopnea, no dyspnea on exertion, no pedal edema GI: No abdominal pain, no diarrhea, no vomiting, no constipation Respiratory: He has had wheezing and shortness of breath Hospitalist Physical - Physical exam Narrative exam: General.: , nontoxic HEENT: Moist mucous membranes, extraocular muscles intact, no lymphadenopathy Neck: supple Cardiac: S1-S2 heard Lungs: Decreased air entry, less wheezing that previously Abdomen: soft , nontender, nondistended, bowel sounds positive Extremities: no edema clubbing or cyanosis Skin: no rash or lesions Neurologic: Confused, moves all extremities Psych: calm, - Constitutional Vitals: Temp Pulse Resp BP Pulse Ox 97.3 F L 61 18 160/85 97 06/09/18 07:46 06/09/18 08:25 06/09/18 08:25 06/09/18 07:46 06/09/18 08:14 General appearance: Present: no acute distress Results - Labs CBC & Chem 7: 06/04/18 09:47 06/09/18 06:13 Labs: Laboratory Last Values WBC 5.3 K/mm3 (4.5-11.0) 06/04/18 09:47 RBC 3.81 M/mm3 (3.65-5.03) 06/04/18 09:47 Hgb 12.4 gm/dl (11.8-15.2) 06/04/18 09:47 Hct 36.1 % (35.5-45.6) 06/04/18 09:47 MCV 95 fl (84-94) H 06/04/18 09:47 MCH 33 pg (28-32) H 06/04/18 09:47 MCHC 34 % (32-34) 06/04/18 09:47 RDW 12.8 % (13.2-15.2) L 06/04/18 09:47 Plt Count 220 K/mm3 (140-440) 06/04/18 09:47 [place] % (Auto) Consulting Practice Director 06/02/18 21:25 Add Manual Diff Complete 06/04/18 09:47 Total Counted 100 06/04/18 09:47 Seg Neuts % (Manual) 92.0 % (40.0-70.0) H 06/04/18 09:47 Band Neutrophils % 0 % 06/04/18 09:47 Lymphocytes % (Manual) 5.0 % (13.4-35.0) L 06/04/18 09:47 Reactive Lymphs % (Man) 0 % 06/04/18 09:47 Monocytes % (Manual) 3.0 % (0.0-7.3) 06/04/18 09:47 Eosinophils % (Manual) 0 % (0.0-4.3) 06/04/18 09:47 Basophils % (Manual) 0 % (0.0-1.8) 06/04/18 09:47 Metamyelocytes % 0 % 06/04/18 09:47 Myelocytes % 0 % 06/04/18 09:47 Promyelocytes % 0 % 06/04/18 09:47 Blast Cells % 0 % 06/04/18 09:47 Nucleated RBC % Not Reportable 06/04/18 09:47 Seg Neutrophils # Man 4.9 K/mm3 (1.8-7.7) 06/04/18 09:47 Band Neutrophils # 0.0 K/mm3 06/04/18 09:47 Lymphocytes # (Manual) 0.3 K/mm3 (1.2-5.4) L 06/04/18 09:47 Abs React Lymphs (Man) 0.0 K/mm3 06/04/18 09:47 Monocytes # (Manual) 0.2 K/mm3 (0.0-0.8) 06/04/18 09:47 Eosinophils # (Manual) 0.0 K/mm3 (0.0-0.4) 06/04/18 09:47 Basophils # (Manual) 0.0 K/mm3 (0.0-0.1) 06/04/18 09:47 Metamyelocytes # 0.0 K/mm3 06/04/18 09:47 Myelocytes # 0.0 K/mm3 06/04/18 09:47 Promyelocytes # 0.0 K/mm3 06/04/18 09:47 Blast Cells # 0.0 K/mm3 06/04/18 09:47 WBC Morphology Not Reportable 06/04/18 09:47 Hypersegmented Neuts Not Reportable 06/04/18 09:47 Hyposegmented Neuts Not Reportable 06/04/18 09:47 Hypogranular Neuts Not Reportable 06/04/18 09:47 Smudge Cells Not Reportable 06/04/18 09:47 Toxic Granulation 1+ 06/04/18 09:47 Toxic Vacuolation Not Reportable 06/04/18 09:47 Dohle Bodies Not Reportable 06/04/18 09:47 Pelger-Huet Anomaly Not Reportable 06/04/18 09:47 Dashawn Rods Not Reportable 06/04/18 09:47 Platelet Estimate Consistent w auto 06/04/18 09:47 Clumped Platelets Not Reportable 06/04/18 09:47 Plt Clumps, EDTA Not Reportable 06/04/18 09:47 Large Platelets Not Reportable 06/04/18 09:47 Giant Platelets Not Reportable 06/04/18 09:47 Platelet Satelliting Not Reportable 06/04/18 09:47 Plt Morphology Comment Not Reportable 06/04/18 09:47 RBC Morphology Normal 06/04/18 09:47 Dimorphic RBCs Not Reportable 06/04/18 09:47 Polychromasia Not Reportable 06/04/18 09:47 Hypochromasia Not Reportable 06/04/18 09:47 Poikilocytosis Not Reportable 06/04/18 09:47 Anisocytosis Not Reportable 06/04/18 09:47 Microcytosis Not Reportable 06/04/18 09:47 Macrocytosis Not Reportable 06/04/18 09:47 Spherocytes Not Reportable 06/04/18 09:47 Pappenheimer Bodies Not Reportable 06/04/18 09:47 Sickle Cells Not Reportable 06/04/18 09:47 Target Cells Not Reportable 06/04/18 09:47 Tear Drop Cells Not Reportable 06/04/18 09:47 Ovalocytes Not Reportable 06/04/18 09:47 Helmet Cells Not Reportable 06/04/18 09:47 [place] Bodies Not Reportable 06/04/18 09:47 [place] Rings Not Reportable 06/04/18 09:47 [place] Cells Not Reportable 06/04/18 09:47 Bite Cells Not Reportable 06/04/18 09:47 Crenated Cell Not Reportable 06/04/18 09:47 Elliptocytes Not Reportable 06/04/18 09:47 Acanthocytes (Spur) Not Reportable 06/04/18 09:47 Rouleaux Not Reportable 06/04/18 09:47 Hemoglobin C Crystals Not Reportable 06/04/18 09:47 Schistocytes Not Reportable 06/04/18 09:47 Malaria parasites Not Reportable 06/04/18 09:47 Rajesh Bodies Not Reportable 06/04/18 09:47 Hem Pathologist Commnt No 06/04/18 09:47 Sodium 138 mmol/L (137-145) 06/09/18 06:13 Potassium 3.9 mmol/L (3.6-5.0) 06/09/18 06:13 Chloride 99.0 mmol/L (98-107) 06/09/18 06:13 Carbon Dioxide 31 mmol/L (22-30) H 06/09/18 06:13 Anion Gap 12 mmol/L 06/09/18 06:13 BUN 20 mg/dL (9-20) 06/09/18 06:13 Creatinine 0.6 mg/dL (0.8-1.5) L 06/09/18 06:13 Estimated GFR > 60 ml/min 06/09/18 06:13 BUN/Creatinine Ratio 33 % 06/09/18 06:13 Glucose 130 mg/dL (75-100) H 06/09/18 06:13 POC Glucose 93 (70-105) 06/02/18 21:18 Osmolality 249 Mosm/kg 06/03/18 20:45 Calcium 8.5 mg/dL (8.4-10.2) 06/09/18 06:13 Phosphorus 3.90 mg/dL (2.5-4.5) 06/04/18 09:47 Magnesium 1.80 mg/dL (1.7-2.3) 06/04/18 09:47 Total Bilirubin 0.40 mg/dL (0.1-1.2) 06/04/18 04:39 Direct Bilirubin < 0.2 mg/dL (0-0.2) 06/04/18 04:39 Indirect Bilirubin 0.2 mg/dL 06/04/18 04:39 AST 31 units/L (5-40) 06/04/18 04:39 ALT 26 units/L (7-56) 06/04/18 04:39 Alkaline Phosphatase 66 units/L (35-129) 06/04/18 04:39 Ammonia 23.0 umol/L (25-60) L 06/03/18 14:41 Total Creatine Kinase 420 units/L (55-170) H 06/02/18 21:25 Troponin T < 0.010 ng/mL (0.00-0.029) 06/02/18 21:25 NT-Pro-B Natriuret Pep 379.8 pg/mL (0-900) 06/02/18 21:25 Total Protein 5.5 g/dL (6.3-8.2) L 06/04/18 04:39 Albumin 3.1 g/dL (3.9-5) L 06/04/18 04:39 Albumin/Globulin Ratio 1.3 % 06/04/18 04:39 TSH 1.100 mlU/mL (0.270-4.200) 06/03/18 20:45 Urine Color Yellow (Yellow) 06/02/18 22:03 Urine Turbidity Slightly-cloudy (Clear) 06/02/18 22:03 Urine pH 6.0 (5.0-7.0) 06/02/18 22:03 Ur Specific [place] 1.004 (1.003-1.030) 06/02/18 22:03 Urine Protein <15 mg/dl mg/dL (Negative) 06/02/18 22:03 Urine Glucose (UA) Neg mg/dL (Negative) 06/02/18 22:03 Urine Ketones Neg mg/dL (Negative) 06/02/18 22:03 Urine Blood Sm (Negative) 06/02/18 22:03 Urine Nitrite Neg (Negative) 06/02/18 22:03 Urine Bilirubin Neg (Negative) 06/02/18 22:03 Urine Urobilinogen 2.0 mg/dL (<2.0) 06/02/18 22:03 Ur Leukocyte Esterase Lg (Negative) 06/02/18 22:03 Urine WBC (Auto) 24.0 /HPF (0.0-6.0) H 06/02/18 22:03 Urine RBC (Auto) 3.0 /HPF (0.0-6.0) 06/02/18 22:03 U Epithel Cells (Auto) < 1.0 /HPF (0-13.0) 06/02/18 22:03 Urine Bacteria (Auto) 1+ /HPF (Negative) 06/02/18 22:03 Urine Osmolality 203 Mosm/kg 06/02/18 22:02 Urine Sodium 20 mmol/L 06/02/18 22:02 Active Medications - Current Medications Current Medications: Generic Name Dose Route Start Last Admin Trade Name Freq PRN Reason Stop Dose Admin Acetaminophen 650 mg 06/03/18 00:05 06/04/18 22:18 Tylenol PO 650 mg Q4H PRN Administration Pain MILD(1-3)/Fever >100.5/CHANCE Albuterol 2.5 mg 06/03/18 13:11 06/03/18 15:01 Proventil IH 2.5 mg Q4HRT PRN Administration Shortness Of Breath Albuterol/Ipratropium 1 ampul 06/05/18 20:00 06/09/18 08:15 Duoneb *Not For Prn Use* IH Not Given TIDRT CINDA Arformoterol Tartrate 15 mcg 06/03/18 20:00 06/09/18 08:14 Brovana Nebu IH 15 mcg Q12HRT CINDA Administration Budesonide 0.5 mg 06/03/18 20:00 06/09/18 08:14 Pulmicort IH 0.5 mg Q12HRT CINDA Administration Clonidine HCl 0.1 mg 06/06/18 11:00 06/09/18 10:05 Catapres PO 0.1 mg Q12HR CINDA Administration Enoxaparin Sodium 40 mg 06/03/18 10:00 06/09/18 10:06 Lovenox SUB-Q 40 mg QDAY@1000 CINDA Administration Folic Acid 1 mg 06/04/18 10:00 06/09/18 10:05 Folvite PO 1 mg QDAY CINDA Administration Haloperidol Lactate 5 mg 06/09/18 09:51 Haldol IM Q6H PRN Acute Psychosis Hydralazine HCl 10 mg 06/06/18 12:10 Apresoline IV Q4H PRN BP >160/100 Sodium Chloride 1,000 mls @ 75 mls/hr 06/03/18 01:00 06/06/18 05:07 Nacl 0.9% 1000 Ml IV 75 mls/hr DIRECT CINDA Administration Dextrose/Sodium Chloride 1,000 mls @ 125 mls/hr 06/06/18 23:45 06/09/18 10:04 D5ns IV 125 mls/hr DIRECT CINDA Administration Lorazepam 2 mg 06/03/18 14:00 Ativan PO Q1H PRN CIWA-Ar 8-15 Lorazepam 4 mg 06/03/18 14:00 06/07/18 23:43 Ativan IV 4 mg Q1H PRN Administration CIWA-Ar 16-25 Lorazepam 4 mg 06/03/18 14:00 Ativan IV Q15MIN PRN CIWA-Ar >25 Melatonin 5 mg 06/07/18 19:41 Melatonin PO QHS PRN Sleep Methylprednisolone Sodium Succinate 60 mg 06/05/18 15:00 06/09/18 06:35 Solu-Medrol IV 60 mg Q8HR CINDA Administration Metoprolol Tartrate 5 mg 06/07/18 13:02 Lopressor IV Q6H PRN Sustained HR >130 Metoprolol Tartrate 25 mg 06/07/18 22:00 06/09/18 10:05 Lopressor PO 25 mg BID CINDA Administration Multivitamins 5 ml 06/04/18 10:00 06/09/18 10:06 Centrum Liq PO 5 ml QDAY CINDA Administration Ondansetron HCl 4 mg 06/03/18 00:05 Zofran IV Q8H PRN Nausea And Vomiting Pantoprazole Sodium 40 mg 06/06/18 10:00 06/09/18 10:05 Protonix PO 40 mg DAILY CINDA Administration Sodium Chloride 10 ml 06/03/18 10:00 06/09/18 10:06 Sodium Chloride Flush Syringe 10 Ml IV 10 ml BID CINDA Administration Sodium Chloride 10 ml 06/03/18 00:05 Sodium Chloride Flush Syringe 10 Ml IV PRN PRN LINE FLUSH Sodium Chloride 2 gm 06/07/18 14:00 06/09/18 10:05 Sodium Chloride PO 2 gm TID CINDA Administration Tamsulosin HCl 0.4 mg 06/03/18 12:00 06/09/18 10:06 Flomax PO 0.4 mg QDAY CINDA Administration Thiamine HCl 100 mg 06/04/18 10:00 06/09/18 10:05 Vitamin B-1 PO 100 mg QDAY CINDA Administration
--- NOTE | 2018-06-09 13:45 | Progress Note ---
Assessment and Plan Paroxysmal atrial flutter in 72 yo male,with hx. of HTN,underlying alcoholic hx. 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 Pt remains in SR. Pt currently confused, restrained and at risk for falls. The patient has been seen in conjunction with Dr. Schrader who agrees with the assessment and plan of care. - Patient Problems (1) Paroxysmal atrial flutter Current Visit: Yes Status: Acute (2) Acute hyponatremia Current Visit: Yes Status: Acute (3) Altered mental status Current Visit: Yes Status: Acute (4) Hypertension Current Visit: Yes Status: Chronic Qualifiers: Hypertension type: essential hypertension Qualified Code(s): I10 - Essential (primary) hypertension (5) Alcohol abuse Current Visit: Yes Status: Chronic Subjective Date of service: 06/09/18 Principal diagnosis: hyponatremia Interval history: pt in bed, remains confused, restrained, in SR on tele. Objective Last Vital Signs Temp 97.3 F L 06/09/18 07:46 Pulse 60 06/09/18 13:24 Resp 18 06/09/18 13:24 BP 160/85 06/09/18 07:46 Pulse Ox 97 06/09/18 08:14 - Physical Examination General: No Apparent Distress (confused) Neck: Positive: neck supple Cardiac: Positive: Reg Rate and Rhythm, S1/S2 Lungs: Positive: Decreased Breath Sounds Neuro: Positive: Other (responds to verbal commands,opens eys,could not commini letty.) Abdomen: Positive: Unremarkable Skin: Negative: Clear Extremities: Absent: edema - Labs and Meds Comprehensive Metabolic Panel 06/09/18 Range/Units 06:13 Sodium 138 (137-145) mmol/L Potassium 3.9 (3.6-5.0) mmol/L Chloride 99.0 (98-107) mmol/L Carbon Dioxide 31 H (22-30) mmol/L BUN 20 (9-20) mg/dL Creatinine 0.6 L (0.8-1.5) mg/dL Glucose 130 H (75-100) mg/dL Calcium 8.5 (8.4-10.2) mg/dL
--- NOTE | 2018-06-09 18:43 | Progress Note ---
Assessment and Plan Patient confused.On 2 litres O2, O2 saturation is 94%. No acute respiratory distress. - Patient Problems (1) COPD exacerbation Current Visit: No Status: Acute Plan to address problem: According to the history, possible COPD. Patient on 2L O2 Albuterol/Atrovent aerosol treatments q6hrs Continue solumedrol Continue Lovenox Continue Protonix Continue Ceftriaxone recommend to add azithromycin (2) Acute hyponatremia Current Visit: Yes Status: Acute Plan to address problem: management as per nephrology sodium improved to 134 (3) Altered mental status Current Visit: Yes Status: Acute Plan to address problem: Watch altered mental status, may improve once sodium normalizes. Also watch for DTs. (4) Alcohol abuse Current Visit: Yes Status: Chronic Plan to address problem: Watch for DTs. Subjective Date of service: 06/09/18 Principal diagnosis: hyponatremia Interval history: Patient confused.On 2 litres O2, O2 saturation is 94%. No acute respiratory distress. Objective Vital Signs - 12hr 06/09/18 06/09/18 06/09/18 07:46 08:14 08:25 Temperature 97.3 F L Pulse Rate [ 58 L 61 Anterior Bilateral Throughout] Respiratory 18 Rate Respiratory 18 18 Rate [Anterior Bilateral Throughout] Blood Pressure 160/85 O2 Sat by Pulse 97 Oximetry 06/09/18 06/09/18 06/09/18 12:05 13:24 13:35 Temperature 98.0 F Pulse Rate [ 60 58 L Anterior Bilateral Throughout] Respiratory 18 Rate Respiratory 18 18 Rate [Anterior Bilateral Throughout] Blood Pressure 175/93 O2 Sat by Pulse Oximetry Constitutional: no acute distress, alert, other (confused) Eyes: non-icteric ENT: oropharynx moist Neck: supple, no JVD Effort: normal Ascultation: Bilateral: other (prolonged expiratory phase) Cardiovascular: regular rate and rhythm Gastrointestinal: normoactive bowel sounds, soft, non-tender Integumentary: normal Extremities: no cyanosis, no edema Neurologic: non-focal exam, pupils equal and round, CN II-XII normal Psychiatric: other (confused) CBC and BMP: 06/04/18 09:47 06/09/18 06:13 Abnormal lab findings: Abnormal Labs 06/02/18 06/02/18 06/02/18 21:25 21:25 22:03 MCV MCH 33 H MCHC 35 H RDW 12.8 L Seg Neuts % (Manual) 80.0 H Lymphocytes % (Manual) Lymphocytes # (Manual) 0.8 L Sodium 109 L* Potassium Chloride 71.3 L Carbon Dioxide BUN 6 L Creatinine 0.5 L Glucose Calcium Ammonia Total Creatine Kinase 420 H Total Protein Albumin Urine WBC (Auto) 24.0 H 06/03/18 06/03/18 06/03/18 00:15 06:27 09:42 MCV MCH MCHC RDW Seg Neuts % (Manual) Lymphocytes % (Manual) Lymphocytes # (Manual) Sodium 113 L* 118 L* 116 L* Potassium 3.5 L 3.5 L Chloride 77.2 L 79.1 L 78.2 L Carbon Dioxide BUN 5 L 4 L 4 L Creatinine 0.4 L 0.5 L 0.4 L Glucose Calcium 8.2 L 7.9 L 8.1 L Ammonia Total Creatine Kinase Total Protein Albumin Urine WBC (Auto) 06/03/18 06/03/18 06/03/18 14:41 14:41 20:45 MCV MCH MCHC RDW Seg Neuts % (Manual) Lymphocytes % (Manual) Lymphocytes # (Manual) Sodium 114 L* 118 L* Potassium 3.1 L Chloride 76.3 L 79.7 L Carbon Dioxide BUN 4 L 3 L Creatinine 0.5 L 0.4 L Glucose Calcium 8.1 L 8.3 L Ammonia 23.0 L Total Creatine Kinase Total Protein Albumin Urine WBC (Auto) 06/04/18 06/04/18 06/04/18 04:39 09:47 09:47 MCV 95 H MCH 33 H MCHC RDW 12.8 L Seg Neuts % (Manual) 92.0 H Lymphocytes % (Manual) 5.0 L Lymphocytes # (Manual) 0.3 L Sodium 123 L Potassium Chloride 85.2 L Carbon Dioxide BUN 5 L Creatinine 0.5 L Glucose 129 H Calcium 8.3 L Ammonia Total Creatine Kinase Total Protein 5.5 L Albumin 3.1 L Urine WBC (Auto) 06/05/18 06/06/18 06/07/18 04:29 05:25 07:11 MCV MCH MCHC RDW Seg Neuts % (Manual) Lymphocytes % (Manual) Lymphocytes # (Manual) Sodium 126 L 133 L D 126 L D Potassium Chloride 90.4 L 95.1 L 86.1 L Carbon Dioxide BUN 8 L Creatinine 0.5 L 0.5 L 0.5 L Glucose 170 H 123 H 129 H Calcium 8.2 L 8.1 L Ammonia Total Creatine Kinase Total Protein Albumin Urine WBC (Auto) 06/08/18 06/09/18 11:03 06:13 MCV MCH MCHC RDW Seg Neuts % (Manual) Lymphocytes % (Manual) Lymphocytes # (Manual) Sodium 134 L D Potassium Chloride 92.2 L Carbon Dioxide 31 H BUN Creatinine 0.5 L 0.6 L Glucose 106 H 130 H Calcium Ammonia Total Creatine Kinase Total Protein Albumin Urine WBC (Auto)
[2018-06-10] MEDS: SODIUM CHLORIDE FLUSH SYRINGE 10 ML IV SCH ×3 (00:15→23:32)
[2018-06-10] MEDS: LOPRESSOR PO SCH ×4 (00:15→23:30)
[2018-06-10] MEDS: SODIUM CHLORIDE PO SCH ×4 (00:15→23:31)
[2018-06-10] MEDS: SOLU-Medrol IV SCH ×4 (00:16→23:31)
[2018-06-10] MEDS: MELATONIN PO PRN ×2 (00:16→23:30)
[2018-06-10] MEDS: CATAPRES PO SCH ×2 (00:16→10:57)
[2018-06-10] MEDS: HALDOL IM PRN ×2 (00:49→08:36)
[2018-06-10] MEDS: D5NS 1,000 ML IV SCH ×4 (06:35→23:32)
[2018-06-10] MEDS: DUONEB *Not for PRN Use IH SCH ×3 (07:34→21:45)
[2018-06-10] MEDS: PULMICORT IH SCH ×2 (07:35→21:45)
[2018-06-10] MEDS: BROVANA NEBU IH SCH ×2 (07:35→21:45)
[2018-06-10 08:12] LABS: BUN/Creatinine Ratio 40; Blood Urea Nitrogen 20 mg/dL (9-20); Calcium 8.4 mg/dL (8.4-10.2); Hemolysis Index 11
[2018-06-10] MEDS: FOLVITE PO SCH (10:56)
[2018-06-10] MEDS: FLOMAX PO SCH (10:56)
[2018-06-10] MEDS: VITAMIN B-1 PO SCH (10:56)
[2018-06-10] MEDS: Centrum Liq PO SCH (10:57)
[2018-06-10] MEDS: PROTONIX PO SCH (10:57)
[2018-06-10] MEDS: LOVENOX SUB-Q SCH (10:57)
--- NOTE | 2018-06-10 11:30 | Progress Note ---
Assessment and Plan Paroxysmal atrial flutter in 72 yo male with hx of HTN, underlying alcoholic hx and significant hyponatremia. Patient now in SR. He remains confused and in restraints and is a high fall risk. He is stable from a cardiac standpoint. Will follow PRN. The patient has been seen in conjunction with Dr. Patel who agrees with the assessment and plan of care. Paroxysmal atrial flutter Continue metoprolol and consider long-term anticoagulation after mental status improves and a better medical history is obtained. Acute hyponatremia Na 133 this AM Management by hospitalist team. Currently on IVF. Altered mental status Continue monitoring and management by hospitalist team. Hypertension SBP in 150s-170s. Will wean clonidine to 0.1 mg daily and increase metoprolol to 25 mg TID. Will also D/C PRN metoprolol. Alcohol abuse Subjective Date of service: 06/10/18 Principal diagnosis: hyponatremia Interval history: Patient confused this morning. Denies CP and SOB. Objective Last Vital Signs Temp 97.6 F 06/10/18 07:22 Pulse 79 06/10/18 07:35 Resp 16 06/10/18 07:35 BP 155/76 06/10/18 07:22 Pulse Ox 95 06/10/18 07:37 - Physical Examination General: No Apparent Distress (confused) Neck: Positive: neck supple Cardiac: Positive: Reg Rate and Rhythm Lungs: Positive: clear to auscultation Neuro: Positive: Other (confused, but follows commands.) Abdomen: Positive: Unremarkable Skin: Positive: Wound (wound on upper back covered by dressing). Negative: Clear Extremities: Present: normal. Absent: edema - Labs and Meds Comprehensive Metabolic Panel 06/10/18 Range/Units 07:14 Sodium 140 (137-145) mmol/L Potassium 4.0 (3.6-5.0) mmol/L Chloride 102.1 (98-107) mmol/L Carbon Dioxide 26 (22-30) mmol/L BUN 20 (9-20) mg/dL Creatinine 0.5 L (0.8-1.5) mg/dL Glucose 126 H (75-100) mg/dL Calcium 8.4 (8.4-10.2) mg/dL
--- NOTE | 2018-06-10 13:38 | Progress Note ---
Assessment and Plan - Patient Problems (1) Acute hyponatremia Current Visit: Yes Status: Acute Plan to address problem: Acute hyponatremia resolving I reviewed urine electrolytes urine sodium 20 urine osmolarity 203 Since urine osmolality is greater than 100 is likely some component of inappropriate ADH production However given his significant alcohol abuse likely some complaints of impaired solute intake in the setting of excessive fluid intake decrease salt tablets 1 g 3 times a day (2) Hypertension Current Visit: Yes Status: Chronic Qualifiers: Hypertension type: essential hypertension Qualified Code(s): I10 - Esse ntial (primary) hypertension Plan to address problem: HTN: UNControlled Monitor for alcohol withdrawal Continue current medications (3) Alcohol abuse Current Visit: Yes Status: Chronic Plan to address problem: Alcohol abuse monitor for alcohol withdrawal Continue thiamine (4) COPD exacerbation Current Visit: No Status: Acute Plan to address problem: COPD exacerbation currently on Solu-Medrol 3 times a day Subjective Principal diagnosis: hyponatremia Interval history: 72-year-old gentleman, COPD, hypertension, alcohol abuse found to have severe hyponatremia Patient seen today He is aware he is in the hospital Has tremors has no edema Denies any abdominal pain or shortness of breath. Objective - Vital Signs Vital signs: Vital Signs - 12hr 06/10/18 06/10/18 06/10/18 02:06 02:47 07:22 Temperature 97.2 F L 97.6 F Pulse Rate 82 77 85 Pulse Rate [ Anterior Bilateral Throughout] Pulse Rate [ Throughout] Respiratory 20 20 Rate Respiratory Rate [Anterior Bilateral Throughout] Respiratory Rate [ Throughout] Blood Pressure 151/77 155/76 O2 Sat by Pulse 93 95 Oximetry 06/10/18 06/10/18 07:35 07:37 Temperature Pulse Rate Pulse Rate [ 79 Anterior Bilateral Throughout] Pulse Rate [ 83 Throughout] Respiratory Rate Respiratory 16 Rate [Anterior Bilateral Throughout] Respiratory 18 Rate [ Throughout] Blood Pressure O2 Sat by Pulse 95 Oximetry - General Appearance General appearance: frail, anxious EENT: ATNC, PERRL Neck: no JVD Respiratory: Present: Clear to Ascultation Cardiology: regular, S1S2 Gastrointestinal: normal, normoactive bowel sounds Integumentary: no rash Neurologic: CN 3-12 intact, other (awake and alert. ) Psychiatric: mood/affect appropriate - Lab 06/04/18 09:47 06/10/18 07:14 Most recent lab results Calcium 8.4 mg/dL (8.4-10.2) 06/10/18 07:14 Phosphorus 3.90 mg/dL (2.5-4.5) 06/04/18 09:47 Magnesium 1.80 mg/dL (1.7-2.3) 06/04/18 09:47 Urine Sodium 20 mmol/L 06/02/18 22:02 - Imaging Chest x-ray: image reviewed (I reviewed CXR without overt edema. ) Medications & Allergies - Medications Allergies/Adverse Reactions: Allergies diphenhydramine HCl [From Benadryl] Allergy (Verified 09/24/14 11:56) Unknown HALLUCINATIONS Home Medications: Home Medications Medication Instructions Recorded Confirmed Last Taken Type Albuterol *Only Ed* [Proventil 2.5 mg IH Q4HRT PRN #1 nebu 10/03/14 06/03/18 Unknown Rx 0.5% NEBS] Folic Acid [Folvite] 1 mg PO QDAY #30 tablet 10/03/14 06/03/18 Unknown Rx Furosemide [Lasix TAB] 20 mg PO QDAY #30 tablet 10/03/14 06/03/18 Unknown Rx Metoprolol [Lopressor TAB] 12.5 mg PO BID #60 tablet 10/03/14 06/03/18 Unknown Rx Multivitamins Liq [Multiple 5 ml PO QDAY 30 Days oral.liqd 10/03/14 06/03/18 Unknown Rx Vitamin Liq (Theragran)] Thiamine [Vitamin B-1] 100 mg PO QDAY #30 tablet 10/03/14 06/03/18 Unknown Rx Active Medications: Generic Name Dose Route Start Last Admin Trade Name Freq PRN Reason Stop Dose Admin Acetaminophen 650 mg 06/03/18 00:05 06/04/18 22:18 Tylenol PO 650 mg Q4H PRN Administration Pain MILD(1-3)/Fever >100.5/CHANCE Albuterol 2.5 mg 06/03/18 13:11 06/03/18 15:01 Proventil IH 2.5 mg Q4HRT PRN Administration Shortness Of Breath Albuterol/Ipratropium 1 ampul 06/05/18 20:00 06/10/18 07:34 Duoneb *Not For Prn Use* IH 1 ampul TIDRT CINDA Administration Arformoterol Tartrate 15 mcg 06/03/18 20:00 06/10/18 07:35 Brovana Nebu IH 15 mcg Q12HRT CINDA Administration Budesonide 0.5 mg 06/03/18 20:00 06/10/18 07:35 Pulmicort IH 0.5 mg Q12HRT CINDA Administration Clonidine HCl 0.1 mg 06/11/18 10:00 Catapres PO DAILY CINDA Enoxaparin Sodium 40 mg 06/03/18 10:00 06/10/18 10:57 Lovenox SUB-Q 40 mg QDAY@1000 CINDA Administration Folic Acid 1 mg 06/04/18 10:00 06/10/18 10:56 Folvite PO 1 mg QDAY CINDA Administration Haloperidol Lactate 5 mg 06/09/18 09:51 06/10/18 08:36 Haldol IM 5 mg Q6H PRN Administration Acute Psychosis Hydralazine HCl 10 mg 06/06/18 12:10 06/09/18 14:26 Apresoline IV 10 mg Q4H PRN Administration BP >160/100 Sodium Chloride 1,000 mls @ 75 mls/hr 06/03/18 01:00 06/06/18 05:07 Nacl 0.9% 1000 Ml IV 75 mls/hr DIRECT CINDA Administration Dextrose/Sodium Chloride 1,000 mls @ 125 mls/hr 06/06/18 23:45 06/10/18 11:02 D5ns IV 125 mls/hr DIRECT CINDA Administration Lorazepam 2 mg 06/03/18 14:00 Ativan PO Q1H PRN CIWA-Ar 8-15 Lorazepam 4 mg 06/03/18 14:00 06/07/18 23:43 Ativan IV 4 mg Q1H PRN Administration CIWA-Ar 16-25 Lorazepam 4 mg 06/03/18 14:00 Ativan IV Q15MIN PRN CIWA-Ar >25 Melatonin 5 mg 06/07/18 19:41 06/10/18 00:16 Melatonin PO 5 mg QHS PRN Administration Sleep Methylprednisolone Sodium Succinate 60 mg 06/05/18 15:00 06/10/18 06:17 Solu-Medrol IV 60 mg Q8HR CINDA Administration Metoprolol Tartrate 25 mg 06/10/18 14:00 Lopressor PO TID CINDA Multivitamins 5 ml 06/04/18 10:00 06/10/18 10:57 Centrum Liq PO 5 ml QDAY CINDA Administration Ondansetron HCl 4 mg 06/03/18 00:05 Zofran IV Q8H PRN Nausea And Vomiting Pantoprazole Sodium 40 mg 06/06/18 10:00 06/10/18 10:57 Protonix PO 40 mg DAILY CINDA Administration Sodium Chloride 10 ml 06/03/18 10:00 06/10/18 10:57 Sodium Chloride Flush Syringe 10 Ml IV 10 ml BID CINDA Administration Sodium Chloride 10 ml 06/03/18 00:05 Sodium Chloride Flush Syringe 10 Ml IV PRN PRN LINE FLUSH Sodium Chloride 1 gm 06/10/18 10:00 06/10/18 10:57 Sodium Chloride PO 1 gm TID CINDA Administration Tamsulosin HCl 0.4 mg 06/03/18 12:00 06/10/18 10:56 Flomax PO 0.4 mg QDAY CINDA Administration Thiamine HCl 100 mg 06/04/18 10:00 06/10/18 10:56 Vitamin B-1 PO 100 mg QDAY CINDA Administration
--- NOTE | 2018-06-10 13:40 | Progress Note ---
Assessment and Plan Patient confused.On 2 litres O2, O2 saturation is 95%. No acute respiratory distress. Patient having shakes and tremors. - Patient Problems (1) COPD exacerbation Current Visit: No Status: Acute Plan to address problem: According to the history, possible COPD. Patient on 2L O2 Albuterol/Atrovent aerosol treatments q6hrs Continue solumedrol Continue Lovenox Continue Protonix (2) Acute hyponatremia Current Visit: Yes Status: Acute Plan to address problem: management as per nephrology sodium improved to 140 (3) Altered mental status Current Visit: Yes Status: Acute Plan to address problem: Watch altered mental status. (4) Alcohol abuse Current Visit: Yes Status: Chronic Plan to address problem: Patient confused and having shakes. Patient is on I/V ativan. Subjective Date of service: 06/10/18 Principal diagnosis: hyponatremia Interval history: Patient confused.On 2 litres O2, O2 saturation is 95%. No acute respiratory distress. Patient having shakes and tremors. Objective Vital Signs - 12hr 06/10/18 06/10/18 06/10/18 02:06 02:47 07:22 Temperature 97.2 F L 97.6 F Pulse Rate 82 77 85 Pulse Rate [ Anterior Bilateral Throughout] Pulse Rate [ Throughout] Respiratory 20 20 Rate Respiratory Rate [Anterior Bilateral Throughout] Respiratory Rate [ Throughout] Blood Pressure 151/77 155/76 O2 Sat by Pulse 93 95 Oximetry 06/10/18 06/10/18 07:35 07:37 Temperature Pulse Rate Pulse Rate [ 79 Anterior Bilateral Throughout] Pulse Rate [ 83 Throughout] Respiratory Rate Respiratory 16 Rate [Anterior Bilateral Throughout] Respiratory 18 Rate [ Throughout] Blood Pressure O2 Sat by Pulse 95 Oximetry Constitutional: alert, appears uncomfortable, other (confused and having shakes.) Eyes: non-icteric ENT: oropharynx moist Neck: supple, no JVD Effort: normal Ascultation: Bilateral: other (prolonged expiratory phase) Cardiovascular: regular rate and rhythm Gastrointestinal: normoactive bowel sounds, soft, non-tender Integumentary: normal Extremities: no cyanosis, no edema Neurologic: non-focal exam, pupils equal and round, CN II-XII normal, other (Having tremors and shakes.) Psychiatric: other (confused) CBC and BMP: 06/04/18 09:47 04/23/19 07:14 Abnormal lab findings: Abnormal Labs 06/02/18 06/02/18 06/02/18 21:25 21:25 22:03 MCV MCH 33 H MCHC 35 H RDW 12.8 L Seg Neuts % (Manual) 80.0 H Lymphocytes % (Manual) Lymphocytes # (Manual) 0.8 L Sodium 109 L* Potassium Chloride 71.3 L Carbon Dioxide BUN 6 L Creatinine 0.5 L Glucose Calcium Ammonia Total Creatine Kinase 420 H Total Protein Albumin Urine WBC (Auto) 24.0 H 06/03/18 06/03/18 06/03/18 00:15 06:27 09:42 MCV MCH MCHC RDW Seg Neuts % (Manual) Lymphocytes % (Manual) Lymphocytes # (Manual) Sodium 113 L* 118 L* 116 L* Potassium 3.5 L 3.5 L Chloride 77.2 L 79.1 L 78.2 L Carbon Dioxide BUN 5 L 4 L 4 L Creatinine 0.4 L 0.5 L 0.4 L Glucose Calcium 8.2 L 7.9 L 8.1 L Ammonia Total Creatine Kinase Total Protein Albumin Urine WBC (Auto) 06/03/18 06/03/18 06/03/18 14:41 14:41 20:45 MCV MCH MCHC RDW Seg Neuts % (Manual) Lymphocytes % (Manual) Lymphocytes # (Manual) Sodium 114 L* 118 L* Potassium 3.1 L Chloride 76.3 L 79.7 L Carbon Dioxide BUN 4 L 3 L Creatinine 0.5 L 0.4 L Glucose Calcium 8.1 L 8.3 L Ammonia 23.0 L Total Creatine Kinase Total Protein Albumin Urine WBC (Auto) 06/04/18 06/04/18 06/04/18 04:39 09:47 09:47 MCV 95 H MCH 33 H MCHC RDW 12.8 L Seg Neuts % (Manual) 92.0 H Lymphocytes % (Manual) 5.0 L Lymphocytes # (Manual) 0.3 L Sodium 123 L Potassium Chloride 85.2 L Carbon Dioxide BUN 5 L Creatinine 0.5 L Glucose 129 H Calcium 8.3 L Ammonia Total Creatine Kinase Total Protein 5.5 L Albumin 3.1 L Urine WBC (Auto) 06/05/18 06/06/18 06/07/18 04:29 05:25 07:11 MCV MCH MCHC RDW Seg Neuts % (Manual) Lymphocytes % (Manual) Lymphocytes # (Manual) Sodium 126 L 133 L D 126 L D Potassium Chloride 90.4 L 95.1 L 86.1 L Carbon Dioxide BUN 8 L Creatinine 0.5 L 0.5 L 0.5 L Glucose 170 H 123 H 129 H Calcium 8.2 L 8.1 L Ammonia Total Creatine Kinase Total Protein Albumin Urine WBC (Auto) 06/08/18 06/09/18 06/10/18 11:03 06:13 07:14 MCV MCH MCHC RDW Seg Neuts % (Manual) Lymphocytes % (Manual) Lymphocytes # (Manual) Sodium 134 L D Potassium Chloride 92.2 L Carbon Dioxide 31 H BUN Creatinine 0.5 L 0.6 L 0.5 L Glucose 106 H 130 H 126 H Calcium Ammonia Total Creatine Kinase Total Protein Albumin Urine WBC (Auto)
--- NOTE | 2018-06-10 14:20 | Progress Note ---
Subjective - Reason for Consult Consult date: 06/10/18 Reason for consult: Psychiatry Follow-up - Chief Complaint Chief complaint: "Tiffany sir" 72 M seen on the telemetry floor for psychiatric consult. He has questionable dementia. Today the patient is cam, somewhat confused during the assessment. He answered some questions asked of him. Per collateral information from the patient's son Cachorro Aguilar at [phone], he stated that his father was inde pendent until his April 2018. He stated that his father have be declining ever since. He stated that his father alochol consumption has increased with a poor appetite. Mr Frias (the son) denies any previous mental health dx for his father prior to the of his mother. No gestures of SI/HI's by the patient. Mental Status Exam - Vital signs Last Vital Signs Temp 97.6 F 06/10/18 07:22 Pulse 84 06/10/18 13:53 Resp 16 06/10/18 13:53 BP 155/76 06/10/18 07:22 Pulse Ox 95 06/10/18 07:37 - Exam Narrative exam: MSE: Appearance: calm Behavior: regular eye contact Speech: somewhat incoherent Mood: "okay" Affect: congruent to mood Thought Process: somewhat disorganized Thought Content: no gestures of SI/HI's Motor Activity: sitting up in the bed Cognition: unable to assess Insight: variable Judgment: poor Assessment and Plan Impression: Additional Dx: MDD. Hx of Alcohol Use DO per the chart. Today the patient is calm, but somewhat confused during the assessment. The patient is in restraints. The patient's appetite is poor. Medical: Acute Metabolic Encephalopathy Recommendation: Start Remeron 15 mg PO HS for depression. Continue Melatonin 5 mg PO HS PRN for sleep and Haldol 5 mg IM Q6hrs PRN for acute psychosis. Discussed possible suicidality/medications induced ingrid with the patient's son Cachorro Aguilar, he verbalized understanding. Recommend daily assessment of the need for CIWA. Delirium precautions as follows: 1. Frequently reorient patient and involve him/her in their care (simple explanations of procedures, tests, medications). 2. Lights on and shades open during daytime hours. 3. Write date and goals of care in a visible place. 4. Try to avoid unnecessary interruptions to sleep during nighttime hours. 5. Obtain glasses, hearing aids from home if patient uses these at baseline. 6. Avoid medications that may exacerbate delirium (especially narcotics, barbiturates, ambien, lunesta, and medications with excessive anticholinergic properties). 7. Recommend 1:1 sitter. 8. Only use Ativan per the CIWA Protocol. Dispo: Proper dipso will be determined once the patient is medically clear. Staffed with Dr. Khari Green
--- NOTE | 2018-06-10 15:43 | Progress Note ---
Assessment and Plan Assessment and plan: Patient is a 72-year-old man with history of alcoholism and likely dementia which has not been diagnosed but suspected by family who presented to [facility] ED with AMS. It appears his recently and his health has been declining every since with increase alcohol consumption. The patient was found to have a very low sodium, agitated and confused. * CT head no acute findings * Chest x-ray no acute findings -Acute metabolic encephalopathy, suspect ETOH related but no serum etoh level or UDS upon admission: continue to treat with CIWA protocol for alcohol withdrawal -Alcohol dependence and withdrawal -Hyponatremia: Continue saline IV fluid, salt tabs -Hypokalemia, k was replaced, monitor levels -UTI suspected, and ruled out via neg urine cx -Afib with RVR, PAF with hypercoaguable state: Cardiology managed -Beer potomania; counseling done -Acute hypoxic respiratory failure with COPD exacerbation -Tobacco abuse, current every day smoker: counseling done -Dementia: mental health to see -Severe malnutrition, poa Restraints renewed History Interval history: Patient was seen and examined. Follow-up on current diagnosis of AMS, still present. Overnight uneventful. Imaging, nursing note, chart, labs and old chart reviewed. Discussed with patient. Hospitalist Physical - Physical exam Narrative exam: Gen: thin frail, chronically disable appearing, NAD, Awake, Alert, Orientated x1 HEENT: NCAT, EOMI, PERRL, OP Clear Neck: supple, no adenopathy, no thyromegaly, no JVD CVS/Heart: irregular irregular, normal S1S2, pulses present bilaterally Chest/Lungs: CTA B, Symmetrical chest expansion, good air entry bilaterally GI/Abdomen: soft, NTND, good bowel sounds, no guarding or rebound /Bladder: no suprapubic tenderness, no CVA or paraspinal tenderness Extermity/Skin: no c/c/e, no obvious rash MSK: FROM x 4 Neuro: CN 2-12 grossly intact, no new focal deficits Psych: confused - Constitutional Vitals: Temp Pulse Resp BP Pulse Ox 99.9 F H 91 H 20 142/82 96 06/10/18 14:51 06/10/18 15:00 06/10/18 14:51 06/10/18 14:51 06/10/18 15:00 General appearance: Present: no acute distress Results - Labs CBC & Chem 7: 06/04/18 09:47 06/10/18 07:14 Labs: Laboratory Last Values WBC 5.3 K/mm3 (4.5-11.0) 06/04/18 09:47 RBC 3.81 M/mm3 (3.65-5.03) 06/04/18 09:47 Hgb 12.4 gm/dl (11.8-15.2) 06/04/18 09:47 Hct 36.1 % (35.5-45.6) 06/04/18 09:47 MCV 95 fl (84-94) H 06/04/18 09:47 MCH 33 pg (28-32) H 06/04/18 09:47 MCHC 34 % (32-34) 06/04/18 09:47 RDW 12.8 % (13.2-15.2) L 06/04/18 09:47 Plt Count 220 K/mm3 (140-440) 06/04/18 09:47 Mora % (Auto) 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 06/02/18 21:25 Add Manual Diff Complete 06/04/18 09:47 Total Counted 100 06/04/18 09:47 Seg Neuts % (Manual) 92.0 % (40.0-70.0) H 06/04/18 09:47 Band Neutrophils % 0 % 06/04/18 09:47 Lymphocytes % (Manual) 5.0 % (13.4-35.0) L 06/04/18 09:47 Reactive Lymphs % (Man) 0 % 06/04/18 09:47 Monocytes % (Manual) 3.0 % (0.0-7.3) 06/04/18 09:47 Eosinophils % (Manual) 0 % (0.0-4.3) 06/04/18 09:47 Basophils % (Manual) 0 % (0.0-1.8) 06/04/18 09:47 Metamyelocytes % 0 % 06/04/18 09:47 Myelocytes % 0 % 06/04/18 09:47 Promyelocytes % 0 % 06/04/18 09:47 Blast Cells % 0 % 06/04/18 09:47 Nucleated RBC % Not Reportable 06/04/18 09:47 Seg Neutrophils # Man 4.9 K/mm3 (1.8-7.7) 06/04/18 09:47 Band Neutrophils # 0.0 K/mm3 06/04/18 09:47 Lymphocytes # (Manual) 0.3 K/mm3 (1.2-5.4) L 06/04/18 09:47 Abs React Lymphs (Man) 0.0 K/mm3 06/04/18 09:47 Monocytes # (Manual) 0.2 K/mm3 (0.0-0.8) 06/04/18 09:47 Eosinophils # (Manual) 0.0 K/mm3 (0.0-0.4) 06/04/18 09:47 Basophils # (Manual) 0.0 K/mm3 (0.0-0.1) 06/04/18 09:47 Metamyelocytes # 0.0 K/mm3 06/04/18 09:47 Myelocytes # 0.0 K/mm3 06/04/18 09:47 Promyelocytes # 0.0 K/mm3 06/04/18 09:47 Blast Cells # 0.0 K/mm3 06/04/18 09:47 WBC Morphology Not Reportable 06/04/18 09:47 Hypersegmented Neuts Not Reportable 06/04/18 09:47 Hyposegmented Neuts Not Reportable 06/04/18 09:47 Hypogranular Neuts Not Reportable 06/04/18 09:47 Smudge Cells Not Reportable 06/04/18 09:47 Toxic Granulation 1+ 06/04/18 09:47 Toxic Vacuolation Not Reportable 06/04/18 09:47 Dohle Bodies Not Reportable 06/04/18 09:47 Pelger-Huet Anomaly Not Reportable 06/04/18 09:47 Dashawn Rods Not Reportable 06/04/18 09:47 Platelet Estimate Consistent w auto 06/04/18 09:47 Clumped Platelets Not Reportable 06/04/18 09:47 Plt Clumps, EDTA Not Reportable 06/04/18 09:47 Large Platelets Not Reportable 06/04/18 09:47 Giant Platelets Not Reportable 06/04/18 09:47 Platelet Satelliting Not Reportable 06/04/18 09:47 Plt Morphology Comment Not Reportable 06/04/18 09:47 RBC Morphology Normal 06/04/18 09:47 Dimorphic RBCs Not Reportable 06/04/18 09:47 Polychromasia Not Reportable 06/04/18 09:47 Hypochromasia Not Reportable 06/04/18 09:47 Poikilocytosis Not Reportable 06/04/18 09:47 Anisocytosis Not Reportable 06/04/18 09:47 Microcytosis Not Reportable 06/04/18 09:47 Macrocytosis Not Reportable 06/04/18 09:47 Spherocytes Not Reportable 06/04/18 09:47 Pappenheimer Bodies Not Reportable 06/04/18 09:47 Sickle Cells Not Reportable 06/04/18 09:47 Target Cells Not Reportable 06/04/18 09:47 Tear Drop Cells Not Reportable 06/04/18 09:47 Ovalocytes Not Reportable 06/04/18 09:47 Helmet Cells Not Reportable 06/04/18 09:47 Olivier-Neffs Bodies Not Reportable 06/04/18 09:47 Cadogan Rings Not Reportable 06/04/18 09:47 Mic Cells Not Reportable 06/04/18 09:47 Bite Cells Not Reportable 06/04/18 09:47 Crenated Cell Not Reportable 06/04/18 09:47 Elliptocytes Not Reportable 06/04/18 09:47 Acanthocytes (Spur) Not Reportable 06/04/18 09:47 Rouleaux Not Reportable 06/04/18 09:47 Hemoglobin C Crystals Not Reportable 06/04/18 09:47 Schistocytes Not Reportable 06/04/18 09:47 Malaria parasites Not Reportable 06/04/18 09:47 Rajesh Bodies Not Reportable 06/04/18 09:47 Hem Pathologist Commnt No 06/04/18 09:47 Sodium 140 mmol/L (137-145) 06/10/18 07:14 Potassium 4.0 mmol/L (3.6-5.0) 06/10/18 07:14 Chloride 102.1 mmol/L (98-107) 06/10/18 07:14 Carbon Dioxide 26 mmol/L (22-30) 06/10/18 07:14 Anion Gap 16 mmol/L 06/10/18 07:14 BUN 20 mg/dL (9-20) 06/10/18 07:14 Creatinine 0.5 mg/dL (0.8-1.5) L 06/10/18 07:14 Estimated GFR > 60 ml/min 06/10/18 07:14 BUN/Creatinine Ratio 40 % 06/10/18 07:14 Glucose 126 mg/dL (75-100) H 06/10/18 07:14 POC Glucose 93 (70-105) 06/02/18 21:18 Osmolality 249 Mosm/kg 06/03/18 20:45 Calcium 8.4 mg/dL (8.4-10.2) 06/10/18 07:14 Phosphorus 3.90 mg/dL (2.5-4.5) 06/04/18 09:47 Magnesium 1.80 mg/dL (1.7-2.3) 06/04/18 09:47 Total Bilirubin 0.40 mg/dL (0.1-1.2) 06/04/18 04:39 Direct Bilirubin < 0.2 mg/dL (0-0.2) 06/04/18 04:39 Indirect Bilirubin 0.2 mg/dL 06/04/18 04:39 AST 31 units/L (5-40) 06/04/18 04:39 ALT 26 units/L (7-56) 06/04/18 04:39 Alkaline Phosphatase 66 units/L (35-129) 06/04/18 04:39 Ammonia 23.0 umol/L (25-60) L 06/03/18 14:41 Total Creatine Kinase 420 units/L (55-170) H 06/02/18 21:25 Troponin T < 0.010 ng/mL (0.00-0.029) 06/02/18 21:25 NT-Pro-B Natriuret Pep 379.8 pg/mL (0-900) 06/02/18 21:25 Total Protein 5.5 g/dL (6.3-8.2) L 06/04/18 04:39 Albumin 3.1 g/dL (3.9-5) L 06/04/18 04:39 Albumin/Globulin Ratio 1.3 % 06/04/18 04:39 TSH 1.100 mlU/mL (0.270-4.200) 06/03/18 20:45 Urine Color Yellow (Yellow) 06/02/18 22:03 Urine Turbidity Slightly-cloudy (Clear) 06/02/18 22:03 Urine pH 6.0 (5.0-7.0) 06/02/18 22:03 Ur Specific Mead 1.004 (1.003-1.030) 06/02/18 22:03 Urine Protein <15 mg/dl mg/dL (Negative) 06/02/18 22:03 Urine Glucose (UA) Neg mg/dL (Negative) 06/02/18 22:03 Urine Ketones Neg mg/dL (Negative) 06/02/18 22:03 Urine Blood Sm (Negative) 06/02/18 22:03 Urine Nitrite Neg (Negative) 06/02/18 22:03 Urine Bilirubin Neg (Negative) 06/02/18 22:03 Urine Urobilinogen 2.0 mg/dL (<2.0) 06/02/18 22:03 Ur Leukocyte Esterase Lg (Negative) 06/02/18 22:03 Urine WBC (Auto) 24.0 /HPF (0.0-6.0) H 06/02/18 22:03 Urine RBC (Auto) 3.0 /HPF (0.0-6.0) 06/02/18 22:03 U Epithel Cells (Auto) < 1.0 /HPF (0-13.0) 06/02/18 22:03 Urine Bacteria (Auto) 1+ /HPF (Negative) 06/02/18 22:03 Urine Osmolality 203 Mosm/kg 06/02/18 22:02 Urine Sodium 20 mmol/L 06/02/18 22:02 Active Medications - Current Medications Current Medications: Generic Name Dose Route Start Last Admin Trade Name Freq PRN Reason Stop Dose Admin Acetaminophen 650 mg 06/03/18 00:05 06/04/18 22:18 Tylenol PO 650 mg Q4H PRN Administration Pain MILD(1-3)/Fever >100.5/CHANCE Albuterol 2.5 mg 06/03/18 13:11 06/03/18 15:01 Proventil IH 2.5 mg Q4HRT PRN Administration Shortness Of Breath Albuterol/Ipratropium 1 ampul 06/05/18 20:00 06/10/18 13:52 Duoneb *Not For Prn Use* IH 1 ampul TIDRT CINDA Administration Arformoterol Tartrate 15 mcg 06/03/18 20:00 06/10/18 07:35 Brovana Nebu IH 15 mcg Q12HRT CINDA Administration Budesonide 0.5 mg 06/03/18 20:00 06/10/18 07:35 Pulmicort IH 0.5 mg Q12HRT CINDA Administration Clonidine HCl 0.1 mg 06/11/18 10:00 Catapres PO DAILY CINDA Enoxaparin Sodium 40 mg 06/03/18 10:00 06/10/18 10:57 Lovenox SUB-Q 40 mg QDAY@1000 CINDA Administration Folic Acid 1 mg 06/04/18 10:00 06/10/18 10:56 Folvite PO 1 mg QDAY CINDA Administration Haloperidol Lactate 5 mg 06/09/18 09:51 06/10/18 08:36 Haldol IM 5 mg Q6H PRN Administration Acute Psychosis Hydralazine HCl 10 mg 06/06/18 12:10 06/09/18 14:26 Apresoline IV 10 mg Q4H PRN Administration BP >160/100 Sodium Chloride 1,000 mls @ 75 mls/hr 06/03/18 01:00 06/06/18 05:07 Nacl 0.9% 1000 Ml IV 75 mls/hr DIRECT CINDA Administration Dextrose/Sodium Chloride 1,000 mls @ 125 mls/hr 06/06/18 23:45 06/10/18 11:02 D5ns IV 125 mls/hr DIRECT CINDA Administration Lorazepam 2 mg 06/03/18 14:00 Ativan PO Q1H PRN CIWA-Ar 8-15 Lorazepam 4 mg 06/03/18 14:00 06/07/18 23:43 Ativan IV 4 mg Q1H PRN Administration CIWA-Ar 16-25 Lorazepam 4 mg 06/03/18 14:00 Ativan IV Q15MIN PRN CIWA-Ar >25 Melatonin 5 mg 06/07/18 19:41 06/10/18 00:16 Melatonin PO 5 mg QHS PRN Administration Sleep Methylprednisolone Sodium Succinate 60 mg 06/05/18 15:00 06/10/18 14:43 Solu-Medrol IV 60 mg Q8HR CINDA Administration Metoprolol Tartrate 25 mg 06/10/18 14:00 06/10/18 14:43 Lopressor PO 25 mg TID CINDA Administration Mirtazapine 15 mg 06/10/18 22:00 Remeron PO QHS CINDA Multivitamins 5 ml 06/04/18 10:00 06/10/18 10:57 Centrum Liq PO 5 ml QDAY CINDA Administration Ondansetron HCl 4 mg 06/03/18 00:05 Zofran IV Q8H PRN Nausea And Vomiting Pantoprazole Sodium 40 mg 06/06/18 10:00 06/10/18 10:57 Protonix PO 40 mg DAILY CINDA Administration Sodium Chloride 10 ml 06/03/18 10:00 06/10/18 10:57 Sodium Chloride Flush Syringe 10 Ml IV 10 ml BID CINDA Administration Sodium Chloride 10 ml 06/03/18 00:05 Sodium Chloride Flush Syringe 10 Ml IV PRN PRN LINE FLUSH Sodium Chloride 1 gm 06/10/18 10:00 06/10/18 14:43 Sodium Chloride PO 1 gm TID CINDA Administration Tamsulosin HCl 0.4 mg 06/03/18 12:00 06/10/18 10:56 Flomax PO 0.4 mg QDAY CINDA Administration Thiamine HCl 100 mg 06/04/18 10:00 06/10/18 10:56 Vitamin B-1 PO 100 mg QDAY CINDA Administration Nutrition/Malnutrition Assess - Dietary Evaluation Nutrition/Malnutrition Findings: Nutrition Notes Start: 06/09/18 14:29 Freq: Status: Active Protocol: Document 06/09/18 14:29 RM (Rec: 06/09/18 14:38 RM [id number]) Nutrition Notes Need for Assessment generated from: LOS Initial or Follow up Assessment Current Diagnosis COPD,Hypertension,Heart Failure Other Pertinent Diagnosis Alcoholic Hx, AMS Current Diet Full liquid w/Ensure clear & Ensure Enlive four times daily Labs/Tests Reviewed Pertinent [facility]ations [facility] Height 5 ft 10 in Weight 61.235 kg [place] Body Weight (kg) 75.45 BMI 19.3 Subjective/Other Information Screened for LOS. Pt asleep at time of visit. Noted 3 unopened Ensure Clear at bedside. No Ensure Enlive noted at bedside. Per tech pt drank half of his broth from breakfast. Burn Absent Trauma Absent #1 Nutrition Diagnosis Inadequate oral intake Etiology alcoholic Hx, AMS As Evidenced by Signs and Symptoms pt on full liquid diet, 3 unopened Ensure Clear at bedside Is patient on ventilator? No Is Patient Ambulatory and/or Out of Bed No REE-([facility]-confined to bed) 1642.596 Kcal/Kg value to use for calculation 32 Approximate Energy Requirements Using 1960 kcal/Kg Calculation Used for Recommendations Kcal/kg Additional Notes Protein Needs: 61-73g (1-1.2g/ kg) Fluid Needs: 1 ml/kcal Nutrition Intervention Change Diet Order: Advance diet when medically able Add Supplement/Snack (indicate name/kcal D/C Ensure Clear. Continue /protein ) Ensure Enlive BID. Provides kCal: 700 Provides Protein (gm) 40 Goal #1 Diet advancement Anticipated Discharge Needs: Unable to determine at this time Follow-Up By: 06/11/18 Additional Comments Follow for PO and ONS intakes
[2018-06-10] MEDS: ATIVAN IV PRN (17:15)
[2018-06-10] MEDS: REMERON PO SCH (23:31)
[2018-06-11] MEDS: SODIUM CHLORIDE PO SCH ×4 (01:11→17:59)
[2018-06-11] MEDS: SOLU-Medrol IV SCH ×3 (06:23→21:39)
[2018-06-11] MEDS: BROVANA NEBU IH SCH ×2 (08:42→20:44)
[2018-06-11] MEDS: PULMICORT IH SCH ×2 (08:43→20:44)
[2018-06-11] MEDS: DUONEB *Not for PRN Use IH SCH ×3 (08:43→20:44)
[2018-06-11] MEDS: LOPRESSOR PO SCH ×3 (09:37→21:40)
[2018-06-11] MEDS: Centrum Liq PO SCH (09:42)
[2018-06-11] MEDS: LOVENOX SUB-Q SCH (09:43)
[2018-06-11] MEDS: PROTONIX PO SCH (09:43)
[2018-06-11] MEDS: FLOMAX PO SCH (09:44)
[2018-06-11] MEDS: FOLVITE PO SCH (09:44)
[2018-06-11] MEDS: SODIUM CHLORIDE FLUSH SYRINGE 10 ML IV SCH ×2 (09:44→21:41)
[2018-06-11] MEDS: VITAMIN B-1 PO SCH (09:44)
[2018-06-11] MEDS: D5NS 1,000 ML IV SCH ×2 (09:48→17:59)
[2018-06-11] MEDS ORDERED: CATAPRES PO SCH (10:00)
[2018-06-11 11:12] LABS: BUN/Creatinine Ratio 40; Blood Urea Nitrogen 16 mg/dL (9-20); Calcium 8.1 mg/dL (8.4-10.2); Hemolysis Index 9
--- NOTE | 2018-06-11 13:01 | Progress Note ---
Subjective - Reason for Consult Consult date: 06/11/18 Reason for consult: Psychiatric Follow-up Evaluation - Chief Complaint Chief complaint: Patient is lethargic Patient is a 72 male seen on the telemetry floor for a psychiatric consult. He has questionable dementia. Today the patient is lethargic. Speech is minimal/incoherent. Per assigned RN patient received Ativan on yesterday. Upon RN shift patient has been lethargic. Provider unable to fully assess patient due to his presentation. Patient alert and oriented x 1. No gestures of SI/HI's by the patient. Mental Status Exam - Vital signs Last Vital Signs Temp 98.7 F 06/11/18 07:20 Pulse 80 06/11/18 10:00 Resp 18 06/11/18 08:54 BP 174/76 06/11/18 09:37 Pulse Ox 95 06/11/18 08:46 - Exam Narrative exam: Mental Status Exam: Appearance: calm Behavior: poor eye contact Speech: somewhat incoherent Mood: unable to assess Affect: unable to assess Thought Process: somewhat disorganized Thought Content: no gestures of SI/HI's Motor Activity: sitting up in the bed Cognition: unable to assess Insight: variable Judgment: poor Assessment and Plan Impression: Additional Dx: MDD. Hx of Alcohol Use DO per the chart. Today the patient is calm, but somewhat confused during the assessment. The patient is in restraints. The patient's appetite is poor. Provider unable to fully assess due to patient's presentation. Medical: Acute Metabolic Encephalopathy Recommendation: Continue Melatonin 5 mg PO HS PRN for sleep, Remeron 15 mg PO HS for depression, Haldol 5 mg IM Q6hrs PRN for acute psychosis. Discussed p ossible suicidality/medications induced ingrid with the patient's son Cachorro Aguilar, he verbalized understanding. Recommend daily assessment of the need for CIWA. Also, will monitor Remeron to ensure that it's not causing excessive drowsiness. Delirium precautions as follows: 1. Frequently reorient patient and involve him/her in their care (simple explanations of procedures, tests, medications). 2. Lights on and shades open during daytime hours. 3. Write date and goals of care in a visible place. 4. Try to avoid unnecessary interruptions to sleep during nighttime hours. 5. Obtain glasses, hearing aids from home if patient uses these at baseline. 6. Avoid medications that may exacerbate delirium (especially narcotics, barbiturates, ambien, lunesta, and medications with excessive anticholinergic properties). 7. Recommend 1:1 sitter. 8. Only use Ativan per the [facility] Protocol. Disposition: Proper disposition will be determined once the patient is medically clear. Will staff with Dr. Carmelo Green
--- NOTE | 2018-06-11 14:38 | Progress Note ---
Assessment and Plan Assessment and plan: Patient is a 72-year-old man with history of alcoholism and likely dementia which has not been diagnosed but suspected by family who presented to [facility] ED with AMS. It appears his recently and his health has been declining every since with increase alcohol consumption. The patient was found to have a very low sodium, agitated and confused. * CT head no acute findings * Chest x-ray no acute findings -Acute metabolic encephalopathy, suspect ETOH related but no serum etoh level or UDS upon admission: continue to treat with CIWA protocol for alcohol withdrawal -Alcohol dependence and withdrawal -Hyponatremia: Continue saline IV fluid, salt tabs -Hypokalemia, k was replaced, monitor levels -UTI suspected, and ruled out via neg urine cx -Afib with RVR, PAF with hypercoaguable state: Cardiology managed -Beer potomania; counseling done -Acute hypoxic respiratory failure with COPD exacerbation -Tobacco abuse, current every day smoker: counseling done -Dementia: mental health to see -Severe malnutrition, poa Restraints renewed History Interval history: Patient was seen and examined. Follow-up on current diagnosis of AMS, still present. Overnight uneventful. Imaging, nursing note, chart, labs and old chart reviewed. Discussed with patient. Hospitalist Physical - Physical exam Narrative exam: Gen: thin frail, chronically disable appearing, NAD, Awake, Alert, Orientated x1 HEENT: NCAT, EOMI, PERRL, OP Clear Neck: supple, no adenopathy, no thyromegaly, no JVD CVS/Heart: irregular irregular, normal S1S2, pulses present bilaterally Chest/Lungs: CTA B, Symmetrical chest expansion, good air entry bilaterally GI/Abdomen: soft, NTND, good bowel sounds, no guarding or rebound /Bladder: no suprapubic tenderness, no CVA or paraspinal tenderness Extermity/Skin: no c/c/e, no obvious rash MSK: FROM x 4 Neuro: CN 2-12 grossly intact, no new focal deficits Psych: confused - Constitutional Vitals: Temp Pulse Resp BP Pulse Ox 99.0 F 67 18 142/77 95 06/11/18 11:10 06/11/18 11:10 06/11/18 11:10 06/11/18 11:10 06/11/18 11:10 General appearance: Present: no acute distress Results - Labs CBC & Chem 7: 06/04/18 09:47 06/11/18 10:23 Labs: Laboratory Last Values WBC 5.3 K/mm3 (4.5-11.0) 06/04/18 09:47 RBC 3.81 M/mm3 (3.65-5.03) 06/04/18 09:47 Hgb 12.4 gm/dl (11.8-15.2) 06/04/18 09:47 Hct 36.1 % (35.5-45.6) 06/04/18 09:47 MCV 95 fl (84-94) H 06/04/18 09:47 MCH 33 pg (28-32) H 06/04/18 09:47 MCHC 34 % (32-34) 06/04/18 09:47 RDW 12.8 % (13.2-15.2) L 06/04/18 09:47 Plt Count 220 K/mm3 (140-440) 06/04/18 09:47 [place] % (Auto) Automatic Spreader Operator 06/02/18 21:25 Add Manual Diff Complete 06/04/18 09:47 Total Counted 100 06/04/18 09:47 Seg Neuts % (Manual) 92.0 % (40.0-70.0) H 06/04/18 09:47 Band Neutrophils % 0 % 06/04/18 09:47 Lymphocytes % (Manual) 5.0 % (13.4-35.0) L 06/04/18 09:47 Reactive Lymphs % (Man) 0 % 06/04/18 09:47 Monocytes % (Manual) 3.0 % (0.0-7.3) 06/04/18 09:47 Eosinophils % (Manual) 0 % (0.0-4.3) 06/04/18 09:47 Basophils % (Manual) 0 % (0.0-1.8) 06/04/18 09:47 Metamyelocytes % 0 % 06/04/18 09:47 Myelocytes % 0 % 06/04/18 09:47 Promyelocytes % 0 % 06/04/18 09:47 Blast Cells % 0 % 06/04/18 09:47 Nucleated RBC % Not Reportable 06/04/18 09:47 Seg Neutrophils # Man 4.9 K/mm3 (1.8-7.7) 06/04/18 09:47 Band Neutrophils # 0.0 K/mm3 06/04/18 09:47 Lymphocytes # (Manual) 0.3 K/mm3 (1.2-5.4) L 06/04/18 09:47 Abs React Lymphs (Man) 0.0 K/mm3 06/04/18 09:47 Monocytes # (Manual) 0.2 K/mm3 (0.0-0.8) 06/04/18 09:47 Eosinophils # (Manual) 0.0 K/mm3 (0.0-0.4) 06/04/18 09:47 Basophils # (Manual) 0.0 K/mm3 (0.0-0.1) 06/04/18 09:47 Metamyelocytes # 0.0 K/mm3 06/04/18 09:47 Myelocytes # 0.0 K/mm3 06/04/18 09:47 Promyelocytes # 0.0 K/mm3 06/04/18 09:47 Blast Cells # 0.0 K/mm3 06/04/18 09:47 WBC Morphology Not Reportable 06/04/18 09:47 Hypersegmented Neuts Not Reportable 06/04/18 09:47 Hyposegmented Neuts Not Reportable 06/04/18 09:47 Hypogranular Neuts Not Reportable 06/04/18 09:47 Smudge Cells Not Reportable 06/04/18 09:47 Toxic Granulation 1+ 06/04/18 09:47 Toxic Vacuolation Not Reportable 06/04/18 09:47 Dohle Bodies Not Reportable 06/04/18 09:47 Pelger-Huet Anomaly Not Reportable 06/04/18 09:47 Dashawn Rods Not Reportable 06/04/18 09:47 Platelet Estimate Consistent w auto 06/04/18 09:47 Clumped Platelets Not Reportable 06/04/18 09:47 Plt Clumps, EDTA Not Reportable 06/04/18 09:47 Large Platelets Not Reportable 06/04/18 09:47 Giant Platelets Not Reportable 06/04/18 09:47 Platelet Satelliting Not Reportable 06/04/18 09:47 Plt Morphology Comment Not Reportable 06/04/18 09:47 RBC Morphology Normal 06/04/18 09:47 Dimorphic RBCs Not Reportable 06/04/18 09:47 Polychromasia Not Reportable 06/04/18 09:47 Hypochromasia Not Reportable 06/04/18 09:47 Poikilocytosis Not Reportable 06/04/18 09:47 Anisocytosis Not Reportable 06/04/18 09:47 Microcytosis Not Reportable 06/04/18 09:47 Macrocytosis Not Reportable 06/04/18 09:47 Spherocytes Not Reportable 06/04/18 09:47 Pappenheimer Bodies Not Reportable 06/04/18 09:47 Sickle Cells Not Reportable 06/04/18 09:47 Target Cells Not Reportable 06/04/18 09:47 Tear Drop Cells Not Reportable 06/04/18 09:47 Ovalocytes Not Reportable 06/04/18 09:47 Helmet Cells Not Reportable 06/04/18 09:47 [place] Bodies Not Reportable 06/04/18 09:47 Melissa Rings Not Reportable 06/04/18 09:47 Mic Cells Not Reportable 06/04/18 09:47 Bite Cells Not Reportable 06/04/18 09:47 Crenated Cell Not Reportable 06/04/18 09:47 Elliptocytes Not Reportable 06/04/18 09:47 Acanthocytes (Spur) Not Reportable 06/04/18 09:47 Rouleaux Not Reportable 06/04/18 09:47 Hemoglobin C Crystals Not Reportable 06/04/18 09:47 Schistocytes Not Reportable 06/04/18 09:47 Malaria parasites Not Reportable 06/04/18 09:47 Rajesh Bodies Not Reportable 06/04/18 09:47 Hem Pathologist Commnt No 06/04/18 09:47 Sodium 136 mmol/L (137-145) L 06/11/18 10:23 Potassium 3.5 mmol/L (3.6-5.0) L 06/11/18 10:23 Chloride 100.4 mmol/L (98-107) 06/11/18 10:23 Carbon Dioxide 26 mmol/L (22-30) 06/11/18 10:23 Anion Gap 13 mmol/L 06/11/18 10:23 BUN 16 mg/dL (9-20) 06/11/18 10:23 Creatinine 0.4 mg/dL (0.8-1.5) L 06/11/18 10:23 Estimated GFR > 60 ml/min 06/11/18 10:23 BUN/Creatinine Ratio 40 % 06/11/18 10:23 Glucose 155 mg/dL (75-100) H 06/11/18 10:23 POC Glucose 93 (70-105) 06/02/18 21:18 Osmolality 249 Mosm/kg 06/03/18 20:45 Calcium 8.1 mg/dL (8.4-10.2) L 06/11/18 10:23 Phosphorus 3.90 mg/dL (2.5-4.5) 06/04/18 09:47 Magnesium 1.80 mg/dL (1.7-2.3) 06/04/18 09:47 Total Bilirubin 0.40 mg/dL (0.1-1.2) 06/04/18 04:39 Direct Bilirubin < 0.2 mg/dL (0-0.2) 06/04/18 04:39 Indirect Bilirubin 0.2 mg/dL 06/04/18 04:39 AST 31 units/L (5-40) 06/04/18 04:39 ALT 26 units/L (7-56) 06/04/18 04:39 Alkaline Phosphatase 66 units/L (35-129) 06/04/18 04:39 Ammonia 23.0 umol/L (25-60) L 06/03/18 14:41 Total Creatine Kinase 420 units/L (55-170) H 06/02/18 21:25 Troponin T < 0.010 ng/mL (0.00-0.029) 06/02/18 21:25 NT-Pro-B Natriuret Pep 379.8 pg/mL (0-900) 06/02/18 21:25 Total Protein 5.5 g/dL (6.3-8.2) L 06/04/18 04:39 Albumin 3.1 g/dL (3.9-5) L 06/04/18 04:39 Albumin/Globulin Ratio 1.3 % 06/04/18 04:39 TSH 1.100 mlU/mL (0.270-4.200) 06/03/18 20:45 Urine Color Yellow (Yellow) 06/02/18 22:03 Urine Turbidity Slightly-cloudy (Clear) 06/02/18 22:03 Urine pH 6.0 (5.0-7.0) 06/02/18 22:03 Ur Specific [place] 1.004 (1.003-1.030) 06/02/18 22:03 Urine Protein <15 mg/dl mg/dL (Negative) 06/02/18 22:03 Urine Glucose (UA) Neg mg/dL (Negative) 06/02/18 22:03 Urine Ketones Neg mg/dL (Negative) 06/02/18 22:03 Urine Blood Sm (Negative) 06/02/18 22:03 Urine Nitrite Neg (Negative) 06/02/18 22:03 Urine Bilirubin Neg (Negative) 06/02/18 22:03 Urine Urobilinogen 2.0 mg/dL (<2.0) 06/02/18 22:03 Ur Leukocyte Esterase Lg (Negative) 06/02/18 22:03 Urine WBC (Auto) 24.0 /HPF (0.0-6.0) H 06/02/18 22:03 Urine RBC (Auto) 3.0 /HPF (0.0-6.0) 06/02/18 22:03 U Epithel Cells (Auto) < 1.0 /HPF (0-13.0) 06/02/18 22:03 Urine Bacteria (Auto) 1+ /HPF (Negative) 06/02/18 22:03 Urine Osmolality 203 Mosm/kg 06/02/18 22:02 Urine Sodium 20 mmol/L 06/02/18 22:02 Active Medications - Current Medications Current Medications: Generic Name Dose Route Start Last Admin Trade Name Freq PRN Reason Stop Dose Admin Acetaminophen 650 mg 06/03/18 00:05 06/04/18 22:18 Tylenol PO 650 mg Q4H PRN Administration Pain MILD(1-3)/Fever >100.5/CHANCE Albuterol 2.5 mg 06/03/18 13:11 06/03/18 15:01 Proventil IH 2.5 mg Q4HRT PRN Administration Shortness Of Breath Albuterol/Ipratropium 1 ampul 06/05/18 20:00 06/11/18 08:43 Duoneb *Not For Prn Use* IH Not Given TIDRT CINDA Arformoterol Tartrate 15 mcg 06/03/18 20:00 06/11/18 08:42 Brovana Nebu IH 15 mcg Q12HRT CINDA Administration Budesonide 0.5 mg 06/03/18 20:00 06/11/18 08:43 Pulmicort IH 0.5 mg Q12HRT CINDA Administration Clonidine HCl 0.1 mg 06/11/18 22:00 Catapres PO HS CINDA Enoxaparin Sodium 40 mg 06/03/18 10:00 06/11/18 09:43 Lovenox SUB-Q 40 mg QDAY@1000 CINDA Administration Folic Acid 1 mg 06/04/18 10:00 06/11/18 09:44 Folvite PO 1 mg QDAY CINDA Administration Haloperidol Lactate 5 mg 06/09/18 09:51 06/10/18 08:36 Haldol IM 5 mg Q6H PRN Administration Acute Psychosis Hydralazine HCl 10 mg 06/06/18 12:10 06/09/18 14:26 Apresoline IV 10 mg Q4H PRN Administration BP >160/100 Sodium Chloride 1,000 mls @ 75 mls/hr 06/03/18 01:00 06/06/18 05:07 Nacl 0.9% 1000 Ml IV 75 mls/hr DIRECT CINDA Administration Dextrose/Sodium Chloride 1,000 mls @ 125 mls/hr 06/06/18 23:45 06/11/18 09:48 D5ns IV 125 mls/hr DIRECT CINDA Administration Lorazepam 2 mg 06/03/18 14:00 Ativan PO Q1H PRN CIWA-Ar 8-15 Lorazepam 4 mg 06/03/18 14:00 06/10/18 17:15 Ativan IV 2 mg Q1H PRN Administration CIWA-Ar 16-25 Lorazepam 4 mg 06/03/18 14:00 Ativan IV Q15MIN PRN CIWA-Ar >25 Melatonin 5 mg 06/07/18 19:41 06/10/18 23:30 Melatonin PO 5 mg QHS PRN Administration Sleep Methylprednisolone Sodium Succinate 60 mg 06/05/18 15:00 06/11/18 06:23 Solu-Medrol IV 60 mg Q8HR CINDA Administration Metoprolol Tartrate 50 mg 06/11/18 10:00 06/11/18 09:37 Lopressor PO 50 mg BID CINDA Administration Mirtazapine 15 mg 06/10/18 22:00 06/10/18 23:31 Remeron PO 15 mg QHS CINDA Administration Multivitamins 5 ml 06/04/18 10:00 06/11/18 09:42 Centrum Liq PO 5 ml QDAY CINDA Administration Ondansetron HCl 4 mg 06/03/18 00:05 Zofran IV Q8H PRN Nausea And Vomiting Pantoprazole Sodium 40 mg 06/06/18 10:00 06/11/18 09:43 Protonix PO 40 mg DAILY CINDA Administration Potassium Chloride 20 meq 06/11/18 14:35 K-Dur PO 06/11/18 14:36 ONCE ONE Sodium Chloride 10 ml 06/03/18 10:00 06/11/18 09:44 Sodium Chloride Flush Syringe 10 Ml IV 10 ml BID CINDA Administration Sodium Chloride 10 ml 06/03/18 00:05 Sodium Chloride Flush Syringe 10 Ml IV PRN PRN LINE FLUSH Sodium Chloride 1 gm 06/10/18 10:00 06/11/18 09:37 Sodium Chloride PO 1 gm TID CINDA Administration Tamsulosin HCl 0.4 mg 06/03/18 12:00 06/11/18 09:44 Flomax PO 0.4 mg QDAY CINDA Administration Thiamine HCl 100 mg 06/04/18 10:00 06/11/18 09:44 Vitamin B-1 PO 100 mg QDAY CINDA Administration Nutrition/Malnutrition Assess - Dietary Evaluation Nutrition/Malnutrition Findings: Nutrition Notes Start: 06/09/18 14:29 Freq: Status: Active Protocol: Document 06/11/18 10:39 (Rec: 06/11/18 10:47 [facility]-[id number]) Co-Sign 06/11/18 10:39 LP Nutrition Notes Initial or Follow up Reassessment Current Diagnosis COPD,Hypertension,Heart Failure Other Pertinent Diagnosis Alcoholic Hx, AMS Current Diet Full liquid Labs/Tests Cr: 0.5 Glu: 126 Pertinent Medications D5ns @ 125 mls/hr Solu Medrol Height 5 ft 10 in Weight 61.235 kg [place] Body Weight (kg) 75.45 BMI 19.3 Subjective/Other Information Patient confused at time of visit and unable to speak. Spoke with pt's nurse, but it is her first day with him so she is unsure of percentage of intakes. Observed breakfast tray with around 25% eaten. Observed 3 unopened ONS beside bed. Percent of energy/protein needs met: 15%/15% Burn Absent Trauma Absent #1 Nutrition Diagnosis Inadequate oral intake Diagnosis Progress(for reassessment Continues documentation) Is patient on ventilator? No Is Patient Ambulatory and/or Out of Bed No REE-([facility]-confined to bed) 1642.596 Kcal/Kg value to use for calculation 32 Approximate Energy Requirements Using 1960 kcal/Kg Calculation Used for Recommendations Kcal/kg Additional Notes Protein Needs: 61-73g (1-1.2g/ kg) Fluid Needs: 1 ml/kcal Nutrition Intervention Change Diet Order: Continue full liquid and continue to advance as tolerated Add Supplement/Snack (indicate name/kcal Ensure Enlive /protein ) Provides kCal: 350 Provides Protein (gm) 20 Goal #1 Meet at least 75% of kcal and pro needs via PO intake Anticipated Discharge Needs: Unable to determine at this time Follow-Up By: 06/13/18 Additional Comments F/U: PO and ONS intake
[2018-06-11] MEDS ORDERED: K-DUR PO ONE (15:00)
--- NOTE | 2018-06-11 17:17 | Progress Note ---
Assessment and Plan - Patient Problems (1) Acute hyponatremia Current Visit: Yes Status: Acute Plan to address problem: Acute hyponatremia Sodium level is declining today. I reviewed urine electrolytes urine sodium 20 urine osmolarity 203 Since urine osmolality is greater than 100 is likely some component of inappropriate ADH production However given his significant alcohol abuse likely some complaints of impaired solute intake in the setting of excessive fluid intake Increase salt tablets 2 g 3 times a day (2) Hypertension Current Visit: Yes Status: Chronic Qualifiers: Hypertension type: essential hypertension Qualified Code(s): I10 - Essential (primary) hypertension Plan to address problem: HTN: UNControlled Monitor for alcohol withdrawal Continue current medications (3) Alcohol abuse Current Visit: Yes Status: Chronic Plan to address problem: Alcohol abuse monitor for alcohol withdrawal Continue thiamine (4) COPD exacerbation Current Visit: No Status: Acute Plan to address problem: COPD exacerbation currently on Solu-Medrol 3 times a day Subjective Principal diagnosis: hyponatremia Interval history: 72-year-old gentleman, COPD, hypertension, alcohol abuse found to have severe hyponatremia Patient seen today Has tremors has no edema Denies any abdominal pain or shortness of breath. Objective - Vital Signs Vital signs: Vital Signs - 12hr 06/11/18 06/11/18 06/11/18 07:20 08:43 08:46 Temperature 98.7 F Pulse Rate 79 Pulse Rate [ 80 Throughout] Respiratory 20 Rate Respiratory 18 Rate [ Throughout] Blood Pressure 174/76 O2 Sat by Pulse 96 95 Oximetry 06/11/18 06/11/18 06/11/18 08:54 09:37 10:00 Temperature Pulse Rate 79 80 Pulse Rate [ 84 Throughout] Respiratory Rate Respiratory 18 Rate [ Throughout] Blood Pressure 174/76 O2 Sat by Pulse Oximetry 06/11/18 11:10 Temperature 99.0 F Pulse Rate 67 Pulse Rate [ Throughout] Respiratory 18 Rate Respiratory Rate [ Throughout] Blood Pressure 142/77 O2 Sat by Pulse 95 Oximetry EENT: ATNC, PERRL Neck: no JVD Respiratory: Present: Clear to Ascultation Cardiology: regular, S1S2 Gastrointestinal: normal, normoactive bowel sounds Integumentary: no rash Neurologic: confused, CN 3-12 intact Musculoskeletal: joint swelling Psychiatric: depressed - Lab 06/04/18 09:47 06/11/18 10:23 Most recent lab results Calcium 8.1 mg/dL (8.4-10.2) L 06/11/18 10:23 Phosphorus 3.90 mg/dL (2.5-4.5) 06/04/18 09:47 Magnesium 1.80 mg/dL (1.7-2.3) 06/04/18 09:47 Urine Sodium 20 mmol/L 06/02/18 22:02 - Imaging Chest x-ray: image reviewed (I reviewed the chest x-ray without any overt edema) Medications & Allergies - Medications Allergies/Adverse Reactions: Allergies diphenhydramine HCl [From Benadryl] Allergy (Verified 09/24/14 11:56) Unknown HALLUCINATIONS Home Medications: Home Medications Medication Instructions Recorded Confirmed Last Taken Type Albuterol *Only Ed* [Proventil 2.5 mg IH Q4HRT PRN #1 nebu 10/03/14 06/03/18 Unknown Rx 0.5% NEBS] Folic Acid [Folvite] 1 mg PO QDAY #30 tablet 10/03/14 06/03/18 Unknown Rx Furosemide [Lasix TAB] 20 mg PO QDAY #30 tablet 10/03/14 06/03/18 Unknown Rx Metoprolol [Lopressor TAB] 12.5 mg PO BID #60 tablet 10/03/14 06/03/18 Unknown Rx Multivitamins Liq [Multiple 5 ml PO QDAY 30 Days oral.liqd 10/03/14 06/03/18 Unknown Rx Vitamin Liq (Theragran)] Thiamine [Vitamin B-1] 100 mg PO QDAY #30 tablet 10/03/14 06/03/18 Unknown Rx Active Medications: Generic Name Dose Route Start Last Admin Trade Name Freq PRN Reason Stop Dose Admin Acetaminophen 650 mg 06/03/18 00:05 06/04/18 22:18 Tylenol PO 650 mg Q4H PRN Administration Pain MILD(1-3)/Fever >100.5/CHANCE Albuterol 2.5 mg 06/03/18 13:11 06/03/18 15:01 Proventil IH 2.5 mg Q4HRT PRN Administration Shortness Of Breath Albuterol/Ipratropium 1 ampul 06/05/18 20:00 06/11/18 08:43 Duoneb *Not For Prn Use* IH Not Given TIDRT CINDA Arformoterol Tartrate 15 mcg 06/03/18 20:00 06/11/18 08:42 Brovana Nebu IH 15 mcg Q12HRT CINDA Administration Budesonide 0.5 mg 06/03/18 20:00 06/11/18 08:43 Pulmicort IH 0.5 mg Q12HRT CINDA Administration Clonidine HCl 0.1 mg 06/11/18 22:00 Catapres PO HS CINDA Enoxaparin Sodium 40 mg 06/03/18 10:00 06/11/18 09:43 Lovenox SUB-Q 40 mg QDAY@1000 CINDA Administration Folic Acid 1 mg 06/04/18 10:00 06/11/18 09:44 Folvite PO 1 mg QDAY CINDA Administration Haloperidol Lactate 5 mg 06/09/18 09:51 06/10/18 08:36 Haldol IM 5 mg Q6H PRN Administration Acute Psychosis Hydralazine HCl 10 mg 06/06/18 12:10 06/09/18 14:26 Apresoline IV 10 mg Q4H PRN Administration BP >160/100 Sodium Chloride 1,000 mls @ 75 mls/hr 06/03/18 01:00 06/06/18 05:07 Nacl 0.9% 1000 Ml IV 75 mls/hr DIRECT CINDA Administration Dextrose/Sodium Chloride 1,000 mls @ 125 mls/hr 06/06/18 23:45 06/11/18 09:48 D5ns IV 125 mls/hr DIRECT CINDA Administration Lorazepam 2 mg 06/03/18 14:00 Ativan PO Q1H PRN CIWA-Ar 8-15 Lorazepam 4 mg 06/03/18 14:00 06/10/18 17:15 Ativan IV 2 mg Q1H PRN Administration CIWA-Ar 16-25 Lorazepam 4 mg 06/03/18 14:00 Ativan IV Q15MIN PRN CIWA-Ar >25 Melatonin 5 mg 06/07/18 19:41 06/10/18 23:30 Melatonin PO 5 mg QHS PRN Administration Sleep Methylprednisolone Sodium Succinate 60 mg 06/05/18 15:00 06/11/18 14:44 Solu-Medrol IV 60 mg Q8HR CINDA Administration Metoprolol Tartrate 50 mg 06/11/18 10:00 06/11/18 09:37 Lopressor PO 50 mg BID CINDA Administration Mirtazapine 15 mg 06/10/18 22:00 06/10/18 23:31 Remeron PO 15 mg QHS CINDA Administration Multivitamins 5 ml 06/04/18 10:00 06/11/18 09:42 Centrum Liq PO 5 ml QDAY CINDA Administration Ondansetron HCl 4 mg 06/03/18 00:05 Zofran IV Q8H PRN Nausea And Vomiting Pantoprazole Sodium 40 mg 06/06/18 10:00 06/11/18 09:43 Protonix PO 40 mg DAILY CINDA Administration Sodium Chloride 10 ml 06/03/18 10:00 06/11/18 09:44 Sodium Chloride Flush Syringe 10 Ml IV 10 ml BID CINDA Administration Sodium Chloride 10 ml 06/03/18 00:05 Sodium Chloride Flush Syringe 10 Ml IV PRN PRN LINE FLUSH Sodium Chloride 1 gm 06/10/18 10:00 06/11/18 14:44 Sodium Chloride PO 1 gm TID CINDA Administration Tamsulosin HCl 0.4 mg 06/03/18 12:00 06/11/18 09:44 Flomax PO 0.4 mg QDAY CINDA Administration Thiamine HCl 100 mg 06/04/18 10:00 06/11/18 09:44 Vitamin B-1 PO 100 mg QDAY CINDA Administration
--- NOTE | 2018-06-11 18:48 | Progress Note ---
Assessment and Plan Patient confused.On 2 litres O2, O2 saturation is 95%. No acute respiratory distress. Patient having shakes and tremors.Patients condition same. - Patient Problems (1) COPD exacerbation Current Visit: No Status: Acute Plan to address problem: According to the history, possible COPD. Patient on 2L O2 Albuterol/Atrovent aerosol treatments q6hrs Continue solumedrol Continue Lovenox Continue Protonix (2) Acute hyponatremia Current Visit: Yes Status: Acute Plan to address problem: management as per nephrology sodium improved to 136 (3) Altered mental status Current Visit: Yes Status: Acute Plan to address problem: Watch altered mental status. (4) Alcohol abuse Current Visit: Yes Status: Chronic Plan to address problem: Patient confused and having shakes. Patient is on I/V ativan. Subjective Date of service: 06/11/18 Principal diagnosis: hyponatremia Interval history: Patient confused.On 2 litres O2, O2 saturation is 95%. No acute respiratory distress. Patient having shakes and tremors.Patients condition same. Objective Vital Signs - 12hr 06/11/18 06/11/18 06/11/18 07:20 08:43 08:46 Temperature 98.7 F Pulse Rate 79 Pulse Rate [ 80 Throughout] Respiratory 20 Rate Respiratory 18 Rate [ Throughout] Blood Pressure 174/76 O2 Sat by Pulse 96 95 Oximetry 06/11/18 06/11/18 06/11/18 08:54 09:37 10:00 Temperature Pulse Rate 79 80 Pulse Rate [ 84 Throughout] Respiratory Rate Respiratory 18 Rate [ Throughout] Blood Pressure 174/76 O2 Sat by Pulse Oximetry 06/11/18 11:10 Temperature 99.0 F Pulse Rate 67 Pulse Rate [ Throughout] Respiratory 18 Rate Respiratory Rate [ Throughout] Blood Pressure 142/77 O2 Sat by Pulse 95 Oximetry Constitutional: alert, appears uncomfortable, other (confused and having shakes.) Eyes: non-icteric ENT: oropharynx moist Neck: supple, no JVD Effort: normal Ascultation: Bilateral: other (prolonged expiratory phase) Cardiovascular: regular rate and rhythm Gastrointestinal: normoactive bowel sounds, soft, non-tender Integumentary: normal Extremities: no cyanosis, no edema Neurologic: non-focal exam, pupils equal and round, CN II-XII normal, other (Having tremors and shakes.) Psychiatric: other (confused) CBC and BMP: 06/04/18 09:47 06/11/18 10:23 Abnormal lab findings: Abnormal Labs 06/02/18 06/02/18 06/02/18 21:25 21:25 22:03 MCV MCH 33 H MCHC 35 H RDW 12.8 L Seg Neuts % (Manual) 80.0 H Lymphocytes % (Manual) Lymphocytes # (Manual) 0.8 L Sodium 109 L* Potassium Chloride 71.3 L Carbon Dioxide BUN 6 L Creatinine 0.5 L Glucose Calcium Ammonia Total Creatine Kinase 420 H Total Protein Albumin Urine WBC (Auto) 24.0 H 06/03/18 06/03/18 06/03/18 00:15 06:27 09:42 MCV MCH MCHC RDW Seg Neuts % (Manual) Lymphocytes % (Manual) Lymphocytes # (Manual) Sodium 113 L* 118 L* 116 L* Potassium 3.5 L 3.5 L Chloride 77.2 L 79.1 L 78.2 L Carbon Dioxide BUN 5 L 4 L 4 L Creatinine 0.4 L 0.5 L 0.4 L Glucose Calcium 8.2 L 7.9 L 8.1 L Ammonia Total Creatine Kinase Total Protein Albumin Urine WBC (Auto) 06/03/18 06/03/18 06/03/18 14:41 14:41 20:45 MCV MCH MCHC RDW Seg Neuts % (Manual) Lymphocytes % (Manual) Lymphocytes # (Manual) Sodium 114 L* 118 L* Potassium 3.1 L Chloride 76.3 L 79.7 L Carbon Dioxide BUN 4 L 3 L Creatinine 0.5 L 0.4 L Glucose Calcium 8.1 L 8.3 L Ammonia 23.0 L Total Creatine Kinase Total Protein Albumin Urine WBC (Auto) 06/04/18 06/04/18 06/04/18 04:39 09:47 09:47 MCV 95 H MCH 33 H MCHC RDW 12.8 L Seg Neuts % (Manual) 92.0 H Lymphocytes % (Manual) 5.0 L Lymphocytes # (Manual) 0.3 L Sodium 123 L Potassium Chloride 85.2 L Carbon Dioxide BUN 5 L Creatinine 0.5 L Glucose 129 H Calcium 8.3 L Ammonia Total Creatine Kinase Total Protein 5.5 L Albumin 3.1 L Urine WBC (Auto) 06/05/18 06/06/18 06/07/18 04:29 05:25 07:11 MCV MCH MCHC RDW Seg Neuts % (Manual) Lymphocytes % (Manual) Lymphocytes # (Manual) Sodium 126 L 133 L D 126 L D Potassium Chloride 90.4 L 95.1 L 86.1 L Carbon Dioxide BUN 8 L Creatinine 0.5 L 0.5 L 0.5 L Glucose 170 H 123 H 129 H Calcium 8.2 L 8.1 L Ammonia Total Creatine Kinase Total Protein Albumin Urine WBC (Auto) 06/08/18 06/09/18 06/10/18 11:03 06:13 07:14 MCV MCH MCHC RDW Seg Neuts % (Manual) Lymphocytes % (Manual) Lymphocytes # (Manual) Sodium 134 L D Potassium Chloride 92.2 L Carbon Dioxide 31 H BUN Creatinine 0.5 L 0.6 L 0.5 L Glucose 106 H 130 H 126 H Calcium Ammonia Total Creatine Kinase Total Protein Albumin Urine WBC (Auto) 06/11/18 10:23 MCV MCH MCHC RDW Seg Neuts % (Manual) Lymphocytes % (Manual) Lymphocytes # (Manual) Sodium 136 L Potassium 3.5 L Chloride Carbon Dioxide BUN Creatinine 0.4 L Glucose 155 H Calcium 8.1 L Ammonia Total Creatine Kinase Total Protein Albumin Urine WBC (Auto)
[2018-06-11] MEDS: REMERON PO SCH (21:39)
[2018-06-11] MEDS: CATAPRES PO SCH (21:40)
[2018-06-12] MEDS: D5NS 1,000 ML IV SCH (02:26)
[2018-06-12 05:40] LABS: BUN/Creatinine Ratio 30; Blood Urea Nitrogen 15 mg/dL (9-20); Calcium 7.9 mg/dL (8.4-10.2); Hemolysis Index 4
[2018-06-12] MEDS: SOLU-Medrol IV SCH ×3 (06:03→21:43)
[2018-06-12] MEDS: PULMICORT IH SCH ×2 (07:26→20:40)
[2018-06-12] MEDS: BROVANA NEBU IH SCH ×2 (07:26→20:40)
[2018-06-12] MEDS: DUONEB *Not for PRN Use IH SCH ×3 (07:39→20:40)
--- NOTE | 2018-06-12 10:43 | Progress Note ---
Assessment and Plan - Patient Problems (1) Acute hyponatremia Current Visit: Yes Status: Acute Plan to address problem: Acute hyponatremia Sodium level is declining today. I reviewed urine electrolytes urine sodium 20 urine osmolarity 203 Since urine osmolality is greater than 100 is likely some component of inappropriate ADH production However given his significant alcohol abuse likely some complaints of impaired solute intake in the setting of excessive fluid intake Discontinue Saline infusion. Increase salt tablets 2 g 3 times a day (2) Hypertension Current Visit: Yes Status: Chronic Qualifiers: Hypertension type: essential hypertension Qualified Code(s): I10 - Essential (primary) hypertension Plan to address problem: HTN: UNControlled Monitor for alcohol withdrawal Continue current medications (3) Alcohol abuse Current Visit: Yes Status: Chronic Plan to address problem: Alcohol abuse monitor for alcohol withdrawal Continue thiamine (4) COPD exacerbation Current Visit: No Status: Acute Plan to address problem: COPD exacerbation currently on Solu-Medrol 3 times a day Subjective Principal diagnosis: hyponatremia Interval history: 72-year-old gentleman, COPD, hypertension, alcohol abuse found to have severe hyponatremia Patient seen today Has tremors has no edema Denies any abdominal pain or shortness of breath. Patient with worsening hyponatremia with saline infusion discussed with floor nurse discontinue saline infusion. he is tremulous remains on supplemental oxygen denies any shortness of breath no edema. Objective - Vital Signs Vital signs: Vital Signs - 12hr 06/12/18 06/12/18 06/12/18 02:34 05:49 07:27 Temperature 98.7 F 98.1 F Pulse Rate 74 Pulse Rate [ 70 Throughout] Respiratory 18 Rate Respiratory 16 Rate [ Throughout] Blood Pressure 163/86 138/73 O2 Sat by Pulse 96 Oximetry 06/12/18 06/12/18 07:37 07:43 Temperature 98.7 F Pulse Rate 68 Pulse Rate [ 76 Throughout] Respiratory 20 Rate Respiratory 20 Rate [ Throughout] Blood Pressure 126/71 O2 Sat by Pulse 92 Oximetry - General Appearance General appearance: well-developed, well-nourished EENT: ATNC, PERRL Neck: no JVD Respiratory: Present: Decreased Breath Sounds Cardiology: regular, S1S2 Gastrointestinal: normal, normoactive bowel sounds Integumentary: no rash Neurologic: confused, CN 3-12 intact Psychiatric: mood/affect appropriate - Lab 06/04/18 09:47 06/12/18 04:58 Most recent lab results Calcium 7.9 mg/dL (8.4-10.2) L 06/12/18 04:58 Phosphorus 3.90 mg/dL (2.5-4.5) 06/04/18 09:47 Magnesium 1.80 mg/dL (1.7-2.3) 06/04/18 09:47 Urine Sodium 20 mmol/L 06/02/18 22:02 - Imaging Chest x-ray: image reviewed Medications & Allergies - Medications Allergies/Adverse Reactions: Allergies diphenhydramine HCl [From Benadryl] Allergy (Verified 09/24/14 11:56) Unknown HALLUCINATIONS Home Medications: Home Medications Medication Instructions Recorded Confirmed Last Taken Type Albuterol *Only Ed* [Proventil 2.5 mg IH Q4HRT PRN #1 nebu 10/03/14 06/03/18 Unknown Rx 0.5% NEBS] Folic Acid [Folvite] 1 mg PO QDAY #30 tablet 10/03/14 06/03/18 Unknown Rx Furosemide [Lasix TAB] 20 mg PO QDAY #30 tablet 10/03/14 06/03/18 Unknown Rx Metoprolol [Lopressor TAB] 12.5 mg PO BID #60 tablet 10/03/14 06/03/18 Unknown Rx Multivitamins Liq [Multiple 5 ml PO QDAY 30 Days oral.liqd 10/03/14 06/03/18 Unknown Rx Vitamin Liq (Theragran)] Thiamine [Vitamin B-1] 100 mg PO QDAY #30 tablet 10/03/14 06/03/18 Unknown Rx Active Medications: Generic Name Dose Route Start Last Admin Trade Name Freq PRN Reason Stop Dose Admin Acetaminophen 650 mg 06/03/18 00:05 06/04/18 22:18 Tylenol PO 650 mg Q4H PRN Administration Pain MILD(1-3)/Fever >100.5/CHANCE Albuterol 2.5 mg 06/03/18 13:11 06/03/18 15:01 Proventil IH 2.5 mg Q4HRT PRN Administration Shortness Of Breath Albuterol/Ipratropium 1 ampul 06/05/18 20:00 06/12/18 07:39 Duoneb *Not For Prn Use* IH Not Given TIDRT CINDA Arformoterol Tartrate 15 mcg 06/03/18 20:00 04/25/19 07:26 Brovana Nebu IH 15 mcg Q12HRT CINDA Administration Budesonide 0.5 mg 06/03/18 20:00 06/12/18 07:26 Pulmicort IH 0.5 mg Q12HRT CINDA Administration Clonidine HCl 0.1 mg 06/11/18 22:00 06/11/18 21:40 Catapres PO 0.1 mg HS CINDA Administration Enoxaparin Sodium 40 mg 06/03/18 10:00 06/11/18 09:43 Lovenox SUB-Q 40 mg QDAY@1000 CINDA Administration Folic Acid 1 mg 06/04/18 10:00 06/11/18 09:44 Folvite PO 1 mg QDAY CINDA Administration Haloperidol Lactate 5 mg 06/09/18 09:51 06/10/18 08:36 Haldol IM 5 mg Q6H PRN Administration Acute Psychosis Hydralazine HCl 10 mg 06/06/18 12:10 06/09/18 14:26 Apresoline IV 10 mg Q4H PRN Administration BP >160/100 Dextrose/Sodium Chloride 1,000 mls @ 125 mls/hr 06/06/18 23:45 06/12/18 02:26 D5ns IV 125 mls/hr DIRECT CINDA Administration Lorazepam 2 mg 06/03/18 14:00 Ativan PO Q1H PRN CIWA-Ar 8-15 Lorazepam 4 mg 06/03/18 14:00 06/10/18 17:15 Ativan IV 2 mg Q1H PRN Administration CIWA-Ar 16-25 Lorazepam 4 mg 06/03/18 14:00 Ativan IV Q15MIN PRN CIWA-Ar >25 Melatonin 5 mg 06/07/18 19:41 06/10/18 23:30 Melatonin PO 5 mg QHS PRN Administration Sleep Methylprednisolone Sodium Succinate 60 mg 06/05/18 15:00 06/12/18 06:03 Solu-Medrol IV 60 mg Q8HR CINDA Administration Metoprolol Tartrate 50 mg 06/11/18 10:00 06/11/18 21:40 Lopressor PO 50 mg BID CINDA Administration Mirtazapine 15 mg 06/10/18 22:00 06/11/18 21:39 Remeron PO 15 mg QHS CINDA Administration Multivitamins 5 ml 06/04/18 10:00 06/11/18 09:42 Centrum Liq PO 5 ml QDAY CINDA Administration Ondansetron HCl 4 mg 06/03/18 00:05 Zofran IV Q8H PRN Nausea And Vomiting Pantoprazole Sodium 40 mg 06/06/18 10:00 06/11/18 09:43 Protonix PO 40 mg DAILY CINDA Administration Sodium Chloride 10 ml 06/03/18 10:00 06/11/18 21:41 Sodium Chloride Flush Syringe 10 Ml IV 10 ml BID CINDA Administration Sodium Chloride 10 ml 06/03/18 00:05 Sodium Chloride Flush Syringe 10 Ml IV PRN PRN LINE FLUSH Sodium Chloride 2 gm 06/11/18 19:00 06/11/18 17:59 Sodium Chloride PO 2 gm TID CINDA Administration Tamsulosin HCl 0.4 mg 06/03/18 12:00 06/11/18 09:44 Flomax PO 0.4 mg QDAY CINDA Administration Thiamine HCl 100 mg 06/04/18 10:00 06/11/18 09:44 Vitamin B-1 PO 100 mg QDAY CINDA Administration
[2018-06-12] MEDS: FLOMAX PO SCH (12:07)
[2018-06-12] MEDS: PROTONIX PO SCH (12:08)
[2018-06-12] MEDS: VITAMIN B-1 PO SCH (12:08)
[2018-06-12] MEDS: FOLVITE PO SCH (12:08)
[2018-06-12] MEDS: LOPRESSOR PO SCH ×2 (12:08→21:43)
[2018-06-12] MEDS: Centrum Liq PO SCH (12:09)
[2018-06-12] MEDS: SODIUM CHLORIDE FLUSH SYRINGE 10 ML IV SCH ×2 (12:09→21:44)
[2018-06-12] MEDS: LOVENOX SUB-Q SCH (12:09)
[2018-06-12] MEDS: SODIUM CHLORIDE PO SCH ×3 (12:13→21:41)
--- NOTE | 2018-06-12 12:52 | Progress Note ---
Subjective - Reason for Consult Consult date: 06/12/18 Reason for consult: Psychiatry Follow-up - Chief Complaint Chief complaint: "The patient mumbles" 72 M seen on the telemetry floor for psychiatric consult. He has questionable dementia. Today the patient is calm, but confused during the assessment. He mumbles when he is asked questions. Per his assigned nurse, she stated that the patient ate his breakfast with assistance. Currently, the patient isn't in restraints, just mittens. No gestures of SI/HI's. No indications of side effects of his medication. Mental Status Exam - Vital signs Last Vital Signs Temp 98.7 F 06/12/18 07:37 Pulse 68 06/12/18 12:08 Resp 20 06/12/18 07:43 BP 126/71 06/12/18 07:37 Pulse Ox 92 06/12/18 07:37 - Exam Narrative exam: MSE: Appearance: calm Behavior: poor eye contact Speech: somewhat incoherent Mood: "okay" Affect: congruent to mood Thought Process: unable to assess Thought Content: no gestures of SI/HI's Motor Activity: sitting up in the bed Cognition: A/O x1 (person) Insight: poor Judgment: poor Assessment and Plan Impression: Additional Dx: MDD. Hx of Alcohol Use DO per the chart. Today the patient is calm but confused during the assessment. NA 134.. Medical: Acute Metabolic Encephalopathy Recommendation: Continue Remeron 15 mg PO HS for depression. Continue Melatonin 5 mg PO HS PRN for sleep and Haldol 5 mg IM Q6hrs PRN for acute psychosis. Discussed possible suicidality/medications induced ingrid with the patient's son Cachorro Aguilar, he verbalized understanding. CIWA? Psy sign off. Delirium precautions as follows: 1. Frequently reorient patient and involve him/her in their care (simple explanations of procedures, tests, medications). 2. Lights on and shades open during daytime hours. 3. Write date and goals of care in a visible place. 4. Try to avoid unnecessary interruptions to sleep during nighttime hours. 5. Obtain glasses, hearing aids from home if patient uses these at baseline. 6. Avoid medications that may exacerbate delirium (especially narcotics, barbiturates, ambien, lunesta, and medications with excessive anticholinergic properties). 7. Recommend 1:1 sitter. Dispo: The pending placement per Case Mgmt. Staffed with Dr. Khari Green
--- NOTE | 2018-06-12 13:13 | Progress Note ---
Assessment and Plan Assessment and plan: Patient is a 72-year-old man with history of alcoholism and likely dementia which has not been diagnosed but suspected by family who presented to [facility] ED with AMS. It appears his recently and his health has been declining every since with increase alcohol consumption. The patient was found to have a very low sodium, agitated and confused. * CT head no acute findings * Chest x-ray no acute findings -Acute metabolic encephalopathy, suspect ETOH related but no serum etoh level or UDS upon admission: continue to treat with CIWA protocol for alcohol withdrawal -Alcohol dependence and withdrawal -Hyponatremia: Continue saline IV fluid, salt tabs -Hypokalemia, k was replaced, monitor levels -UTI suspected, and ruled out via neg urine cx -Afib with RVR, PAF with hypercoaguable state: Cardiology managed -Beer potomania; counseling done -Acute hypoxic respiratory failure with COPD exacerbation -Tobacco abuse, current every day smoker: counseling done -Dementia: mental health to see -Severe malnutrition, poa Restraints renewed History Interval history: Patient was seen and examined. Follow-up on current diagnosis of AMS, still present. Overnight uneventful. Imaging, nursing note, chart, labs and old chart reviewed. Discussed with patient. Hospitalist Physical - Physical exam Narrative exam: Gen: thin frail, chronically disable appearing, NAD, Awake, Alert, Orientated x1 HEENT: NCAT, EOMI, PERRL, OP Clear Neck: supple, no adenopathy, no thyromegaly, no JVD CVS/Heart: irregular irregular, normal S1S2, pulses present bilaterally Chest/Lungs: CTA B, Symmetrical chest expansion, good air entry bilaterally GI/Abdomen: soft, NTND, good bowel sounds, no guarding or rebound /Bladder: no suprapubic tenderness, no CVA or paraspinal tenderness Extermity/Skin: no c/c/e, no obvious rash MSK: FROM x 4 Neuro: CN 2-12 grossly intact, no new focal deficits Psych: confused - Constitutional Vitals: Temp Pulse Resp BP Pulse Ox 98.7 F 68 20 126/71 92 06/12/18 07:37 06/12/18 12:08 06/12/18 07:43 06/12/18 07:37 06/12/18 07:37 General appearance: Present: no acute distress Results - Labs CBC & Chem 7: 06/04/18 09:47 06/12/18 04:58 Labs: Laboratory Last Values WBC 5.3 K/mm3 (4.5-11.0) 06/04/18 09:47 RBC 3.81 M/mm3 (3.65-5.03) 06/04/18 09:47 Hgb 12.4 gm/dl (11.8-15.2) 06/04/18 09:47 Hct 36.1 % (35.5-45.6) 06/04/18 09:47 MCV 95 fl (84-94) H 06/04/18 09:47 MCH 33 pg (28-32) H 06/04/18 09:47 MCHC 34 % (32-34) 06/04/18 09:47 RDW 12.8 % (13.2-15.2) L 06/04/18 09:47 Plt Count 220 K/mm3 (140-440) 06/04/18 09:47 [place] % (Auto) [place] 06/02/18 21:25 Add Manual Diff Complete 06/04/18 09:47 Total Counted 100 06/04/18 09:47 Seg Neuts % (Manual) 92.0 % (40.0-70.0) H 06/04/18 09:47 Band Neutrophils % 0 % 06/04/18 09:47 Lymphocytes % (Manual) 5.0 % (13.4-35.0) L 06/04/18 09:47 Reactive Lymphs % (Man) 0 % 06/04/18 09:47 Monocytes % (Manual) 3.0 % (0.0-7.3) 06/04/18 09:47 Eosinophils % (Manual) 0 % (0.0-4.3) 06/04/18 09:47 Basophils % (Manual) 0 % (0.0-1.8) 06/04/18 09:47 Metamyelocytes % 0 % 06/04/18 09:47 Myelocytes % 0 % 06/04/18 09:47 Promyelocytes % 0 % 06/04/18 09:47 Blast Cells % 0 % 06/04/18 09:47 Nucleated RBC % Not Reportable 06/04/18 09:47 Seg Neutrophils # Man 4.9 K/mm3 (1.8-7.7) 06/04/18 09:47 Band Neutrophils # 0.0 K/mm3 06/04/18 09:47 Lymphocytes # (Manual) 0.3 K/mm3 (1.2-5.4) L 06/04/18 09:47 Abs React Lymphs (Man) 0.0 K/mm3 06/04/18 09:47 Monocytes # (Manual) 0.2 K/mm3 (0.0-0.8) 06/04/18 09:47 Eosinophils # (Manual) 0.0 K/mm3 (0.0-0.4) 06/04/18 09:47 Basophils # (Manual) 0.0 K/mm3 (0.0-0.1) 06/04/18 09:47 Metamyelocytes # 0.0 K/mm3 06/04/18 09:47 Myelocytes # 0.0 K/mm3 06/04/18 09:47 Promyelocytes # 0.0 K/mm3 06/04/18 09:47 Blast Cells # 0.0 K/mm3 06/04/18 09:47 WBC Morphology Not Reportable 06/04/18 09:47 Hypersegmented Neuts Not Reportable 06/04/18 09:47 Hyposegmented Neuts Not Reportable 06/04/18 09:47 Hypogranular Neuts Not Reportable 06/04/18 09:47 Smudge Cells Not Reportable 06/04/18 09:47 Toxic Granulation 1+ 06/04/18 09:47 Toxic Vacuolation Not Reportable 06/04/18 09:47 Dohle Bodies Not Reportable 06/04/18 09:47 Pelger-Huet Anomaly Not Reportable 06/04/18 09:47 Dashawn Rods Not Reportable 06/04/18 09:47 Platelet Estimate Consistent w auto 06/04/18 09:47 Clumped Platelets Not Reportable 06/04/18 09:47 Plt Clumps, EDTA Not Reportable 06/04/18 09:47 Large Platelets Not Reportable 06/04/18 09:47 Giant Platelets Not Reportable 06/04/18 09:47 Platelet Satelliting Not Reportable 06/04/18 09:47 Plt Morphology Comment Not Reportable 06/04/18 09:47 RBC Morphology Normal 06/04/18 09:47 Dimorphic RBCs Not Reportable 06/04/18 09:47 Polychromasia Not Reportable 06/04/18 09:47 Hypochromasia Not Reportable 06/04/18 09:47 Poikilocytosis Not Reportable 06/04/18 09:47 Anisocytosis Not Reportable 06/04/18 09:47 Microcytosis Not Reportable 06/04/18 09:47 Macrocytosis Not Reportable 06/04/18 09:47 Spherocytes Not Reportable 06/04/18 09:47 Pappenheimer Bodies Not Reportable 06/04/18 09:47 Sickle Cells Not Reportable 06/04/18 09:47 Target Cells Not Reportable 06/04/18 09:47 Tear Drop Cells Not Reportable 06/04/18 09:47 Ovalocytes Not Reportable 06/04/18 09:47 Helmet Cells Not Reportable 06/04/18 09:47 Olivier-Lititz Bodies Not Reportable 06/04/18 09:47 [place] Rings Not Reportable 06/04/18 09:47 Mic Cells Not Reportable 06/04/18 09:47 Bite Cells Not Reportable 06/04/18 09:47 Crenated Cell Not Reportable 06/04/18 09:47 Elliptocytes Not Reportable 06/04/18 09:47 Acanthocytes (Spur) Not Reportable 06/04/18 09:47 Rouleaux Not Reportable 06/04/18 09:47 Hemoglobin C Crystals Not Reportable 06/04/18 09:47 Schistocytes Not Reportable 06/04/18 09:47 Malaria parasites Not Reportable 06/04/18 09:47 Rajesh Bodies Not Reportable 06/04/18 09:47 Hem Pathologist Commnt No 06/04/18 09:47 Sodium 134 mmol/L (137-145) L 06/12/18 04:58 Potassium 3.6 mmol/L (3.6-5.0) 06/12/18 04:58 Chloride 98.8 mmol/L (98-107) 06/12/18 04:58 Carbon Dioxide 26 mmol/L (22-30) 06/12/18 04:58 Anion Gap 13 mmol/L 06/12/18 04:58 BUN 15 mg/dL (9-20) 06/12/18 04:58 Creatinine 0.5 mg/dL (0.8-1.5) L 06/12/18 04:58 Estimated GFR > 60 ml/min 06/12/18 04:58 BUN/Creatinine Ratio 30 % 06/12/18 04:58 Glucose 141 mg/dL (75-100) H 06/12/18 04:58 POC Glucose 93 (70-105) 06/02/18 21:18 Osmolality 249 Mosm/kg 06/03/18 20:45 Calcium 7.9 mg/dL (8.4-10.2) L 06/12/18 04:58 Phosphorus 3.90 mg/dL (2.5-4.5) 06/04/18 09:47 Magnesium 1.80 mg/dL (1.7-2.3) 06/04/18 09:47 Total Bilirubin 0.40 mg/dL (0.1-1.2) 06/04/18 04:39 Direct Bilirubin < 0.2 mg/dL (0-0.2) 06/04/18 04:39 Indirect Bilirubin 0.2 mg/dL 06/04/18 04:39 AST 31 units/L (5-40) 06/04/18 04:39 ALT 26 units/L (7-56) 06/04/18 04:39 Alkaline Phosphatase 66 units/L (35-129) 06/04/18 04:39 Ammonia 23.0 umol/L (25-60) L 06/03/18 14:41 Total Creatine Kinase 420 units/L (55-170) H 06/02/18 21:25 Troponin T < 0.010 ng/mL (0.00-0.029) 06/02/18 21:25 NT-Pro-B Natriuret Pep 379.8 pg/mL (0-900) 06/02/18 21:25 Total Protein 5.5 g/dL (6.3-8.2) L 06/04/18 04:39 Albumin 3.1 g/dL (3.9-5) L 06/04/18 04:39 Albumin/Globulin Ratio 1.3 % 06/04/18 04:39 TSH 1.100 mlU/mL (0.270-4.200) 06/03/18 20:45 Urine Color Yellow (Yellow) 06/02/18 22:03 Urine Turbidity Slightly-cloudy (Clear) 06/02/18 22:03 Urine pH 6.0 (5.0-7.0) 06/02/18 22:03 Ur Specific [place] 1.004 (1.003-1.030) 06/02/18 22:03 Urine Protein <15 mg/dl mg/dL (Negative) 06/02/18 22:03 Urine Glucose (UA) Neg mg/dL (Negative) 06/02/18 22:03 Urine Ketones Neg mg/dL (Negative) 06/02/18 22:03 Urine Blood Sm (Negative) 06/02/18 22:03 Urine Nitrite Neg (Negative) 06/02/18 22:03 Urine Bilirubin Neg (Negative) 06/02/18 22:03 Urine Urobilinogen 2.0 mg/dL (<2.0) 06/02/18 22:03 Ur Leukocyte Esterase Lg (Negative) 06/02/18 22:03 Urine WBC (Auto) 24.0 /HPF (0.0-6.0) H 06/02/18 22:03 Urine RBC (Auto) 3.0 /HPF (0.0-6.0) 06/02/18 22:03 U Epithel Cells (Auto) < 1.0 /HPF (0-13.0) 06/02/18 22:03 Urine Bacteria (Auto) 1+ /HPF (Negative) 06/02/18 22:03 Urine Osmolality 203 Mosm/kg 06/02/18 22:02 Urine Sodium 20 mmol/L 06/02/18 22:02 Active Medications - Current Medications Current Medications: Generic Name Dose Route Start Last Admin Trade Name Freq PRN Reason Stop Dose Admin Acetaminophen 650 mg 06/03/18 00:05 06/04/18 22:18 Tylenol PO 650 mg Q4H PRN Administration Pain MILD(1-3)/Fever >100.5/CHANCE Albuterol 2.5 mg 06/03/18 13:11 06/03/18 15:01 Proventil IH 2.5 mg Q4HRT PRN Administration Shortness Of Breath Albuterol/Ipratropium 1 ampul 06/05/18 20:00 06/12/18 07:39 Duoneb *Not For Prn Use* IH Not Given TIDRT CINDA Arformoterol Tartrate 15 mcg 06/03/18 20:00 06/12/18 07:26 Brovana Nebu IH 15 mcg Q12HRT CINDA Administration Budesonide 0.5 mg 06/03/18 20:00 06/12/18 07:26 Pulmicort IH 0.5 mg Q12HRT CINDA Administration Clonidine HCl 0.1 mg 06/11/18 22:00 06/11/18 21:40 Catapres PO 0.1 mg HS CINDA Administration Enoxaparin Sodium 40 mg 06/03/18 10:00 06/12/18 12:09 Lovenox SUB-Q 40 mg QDAY@1000 CINDA Administration Folic Acid 1 mg 06/04/18 10:00 06/12/18 12:08 Folvite PO 1 mg QDAY CINDA Administration Haloperidol Lactate 5 mg 06/09/18 09:51 06/10/18 08:36 Haldol IM 5 mg Q6H PRN Administration Acute Psychosis Hydralazine HCl 10 mg 06/06/18 12:10 06/09/18 14:26 Apresoline IV 10 mg Q4H PRN Administration BP >160/100 Dextrose/Sodium Chloride 1,000 mls @ 125 mls/hr 06/06/18 23:45 06/12/18 02:26 D5ns IV 125 mls/hr DIRECT CINDA Administration Lorazepam 2 mg 06/03/18 14:00 Ativan PO Q1H PRN CIWA-Ar 8-15 Lorazepam 4 mg 06/03/18 14:00 06/10/18 17:15 Ativan IV 2 mg Q1H PRN Administration CIWA-Ar 16-25 Lorazepam 4 mg 06/03/18 14:00 Ativan IV Q15MIN PRN CIWA-Ar >25 Melatonin 5 mg 06/07/18 19:41 06/10/18 23:30 Melatonin PO 5 mg QHS PRN Administration Sleep Methylprednisolone Sodium Succinate 60 mg 06/05/18 15:00 06/12/18 06:03 Solu-Medrol IV 60 mg Q8HR CINDA Administration Metoprolol Tartrate 50 mg 06/11/18 10:00 06/12/18 12:08 Lopressor PO 50 mg BID CINDA Administration Mirtazapine 15 mg 06/10/18 22:00 06/11/18 21:39 Remeron PO 15 mg QHS CINDA Administration Multivitamins 5 ml 06/04/18 10:00 06/12/18 12:09 Centrum Liq PO 5 ml QDAY CINDA Administration Ondansetron HCl 4 mg 06/03/18 00:05 Zofran IV Q8H PRN Nausea And Vomiting Pantoprazole Sodium 40 mg 06/06/18 10:00 06/12/18 12:08 Protonix PO 40 mg DAILY CINDA Administration Sodium Chloride 10 ml 06/03/18 10:00 06/12/18 12:09 Sodium Chloride Flush Syringe 10 Ml IV 10 ml BID CINDA Administration Sodium Chloride 10 ml 06/03/18 00:05 Sodium Chloride Flush Syringe 10 Ml IV PRN PRN LINE FLUSH Sodium Chloride 2 gm 06/11/18 19:00 06/12/18 12:13 Sodium Chloride PO 2 gm TID CINDA Administration Tamsulosin HCl 0.4 mg 06/03/18 12:00 06/12/18 12:07 Flomax PO 0.4 mg QDAY CINDA Administration Thiamine HCl 100 mg 06/04/18 10:00 06/12/18 12:08 Vitamin B-1 PO 100 mg QDAY CINDA Administration Nutrition/Malnutrition Assess - Dietary Evaluation Nutrition/Malnutrition Findings: Nutrition Notes Start: 06/09/18 14:29 Freq: Status: Active Protocol: Document 06/11/18 10:39 SA (Rec: 06/11/18 10:47 [facility]-[id number]) Co-Sign 06/11/18 10:39 LP Nutrition Notes Initial or Follow up Reassessment Current Diagnosis COPD,Hypertension,Heart Failure Other Pertinent Diagnosis Alcoholic Hx, AMS Current Diet Full liquid Labs/Tests Cr: 0.5 Glu: 126 Pertinent Medications D5ns @ 125 mls/hr Solu Medrol Height 5 ft 10 in Weight 61.235 kg [place] Body Weight (kg) 75.45 BMI 19.3 Subjective/Other Information Patient confused at time of visit and unable to speak. Spoke with pt's nurse, but it is her first day with him so she is unsure of percentage of intakes. Observed breakfast tray with around 25% eaten. Observed 3 unopened ONS beside bed. Percent of energy/protein needs met: 15%/15% Burn Absent Trauma Absent #1 Nutrition Diagnosis Inadequate oral intake Diagnosis Progress(for reassessment Continues documentation) Is patient on ventilator? No Is Patient Ambulatory and/or Out of Bed No REE-([facility]-confined to bed) 1642.596 Kcal/Kg value to use for calculation 32 Approximate Energy Requirements Using 1960 kcal/Kg Calculation Used for Recommendations Kcal/kg Additional Notes Protein Needs: 61-73g (1-1.2g/ kg) Fluid Needs: 1 ml/kcal Nutrition Intervention Change Diet Order: Continue full liquid and continue to advance as tolerated Add Supplement/Snack (indicate name/kcal Ensure Enlive /protein ) Provides kCal: 350 Provides Protein (gm) 20 Goal #1 Meet at least 75% of kcal and pro needs via PO intake Anticipated Discharge Needs: Unable to determine at this time Follow-Up By: 06/13/18 Additional Comments F/U: PO and ONS intake
[2018-06-12] MEDS: TYLENOL PO PRN (18:30)
[2018-06-12] MEDS: REMERON PO SCH (21:43)
[2018-06-12] MEDS: CATAPRES PO SCH (21:44)
[2018-06-13] MEDS: TYLENOL PO PRN (03:03)
[2018-06-13] MEDS: SOLU-Medrol IV SCH ×2 (05:21→13:17)
[2018-06-13 05:58] LABS: Hematocrit 36.7 % (35.5-45.6); Hemoglobin 12.4 gm/dl (11.8-15.2); Mean Corpuscular HGB Conc 34 % (32-34); Mean Corpuscular Volume 97 fl (84-94); Platelet Count 150 K/mm3 (140-440); Red Cell Distribution Width 13.5 % (13.2-15.2)
[2018-06-13 06:17] LABS: BUN/Creatinine Ratio 45; Blood Urea Nitrogen 27 mg/dL (9-20); Calcium 8.3 mg/dL (8.4-10.2); Hemolysis Index 6
[2018-06-13] MEDS: SODIUM CHLORIDE PO SCH ×2 (07:06→13:23)
[2018-06-13] MEDS: PULMICORT IH SCH ×2 (08:23→20:31)
[2018-06-13] MEDS: DUONEB *Not for PRN Use IH SCH ×3 (08:23→20:31)
[2018-06-13] MEDS: BROVANA NEBU IH SCH ×2 (08:23→20:31)
[2018-06-13] MEDS: SODIUM CHLORIDE FLUSH SYRINGE 10 ML IV SCH (09:07)
[2018-06-13] MEDS: Centrum Liq PO SCH (09:07)
[2018-06-13] MEDS: LOVENOX SUB-Q SCH (09:07)
[2018-06-13] MEDS: VITAMIN B-1 PO SCH (09:10)
[2018-06-13] MEDS: FLOMAX PO SCH (09:10)
[2018-06-13] MEDS: FOLVITE PO SCH (09:10)
[2018-06-13] MEDS: PROTONIX PO SCH (09:10)
[2018-06-13] MEDS: LOPRESSOR PO SCH (09:11)
--- NOTE | 2018-06-13 10:52 | Progress Note ---
Assessment and Plan Acute COPD exacerbation Acute Hyponatremia Acute Encephalopathy( metabolic, toxic) EtOH Abuse - Albuterol/Atrovent aerosol treatments q6hrs - Continue steroid taper -supplemental oxygen to keep O2 sast >90% - Continue Lovenox - Continue Protonix - Continue empiric CAP AB's to compete course - free water restriction - continue to Watch and treat for DTs -aspiration and falls precautions Subjective Date of service: 06/13/18 Principal diagnosis: hyponatremia Interval history: Patient is seen today for: AE-COPD, acute metabolic-toxic encephalopathy, hyponatremia Seen and examined at bedside; 24hour events reviewed; nursing and respiratory care staff consulted; no adverse overnight events reported to me; remains confused, tremulous in restraints. NO fevers or chills, no nausea or vomiting. Objective Vital Signs - 12hr 06/13/18 06/13/18 06/13/18 02:06 04:23 07:17 Temperature 100.5 F H 98.4 F 99.2 F Pulse Rate 65 78 Pulse Rate [ From Monitor] Pulse Rate [ Throughout] Respiratory 18 20 Rate Respiratory Rate [ Throughout] Blood Pressure 122/64 126/83 O2 Sat by Pulse 93 94 Oximetry 06/13/18 06/13/18 06/13/18 08:23 08:49 09:11 Temperature Pulse Rate 102 H Pulse Rate [ From Monitor] Pulse Rate [ 90 90 Throughout] Respiratory Rate Respiratory 20 20 Rate [ Throughout] Blood Pressure 151/84 O2 Sat by Pulse Oximetry 06/13/18 06/13/18 09:49 09:51 Temperature Pulse Rate 88 Pulse Rate [ 88 From Monitor] Pulse Rate [ Throughout] Respiratory 20 Rate Respiratory Rate [ Throughout] Blood Pressure O2 Sat by Pulse 94 Oximetry Constitutional: alert, appears uncomfortable, other (confused and having shakes.) Eyes: non-icteric ENT: oropharynx moist Neck: supple, no JVD Effort: normal Ascultation: Bilateral: other (prolonged expiratory phase) Cardiovascular: regular rate and rhythm Gastrointestinal: normoactive bowel sounds, soft, non-tender Integumentary: normal Extremities: no cyanosis, no edema Neurologic: non-focal exam, pupils equal and round, CN II-XII normal, other (Having tremors and shakes.) Psychiatric: other (confused) CBC and BMP: 06/13/18 05:33 06/13/18 05:33 Abnormal lab findings: Abnormal Labs 04/15/19 04/15/19 04/15/19 21:25 21:25 22:03 WBC MCV MCH 33 H MCHC 35 H RDW 12.8 L Seg Neuts % (Manual) 80.0 H Lymphocytes % (Manual) Lymphocytes # (Manual) 0.8 L Sodium 109 L* Potassium Chloride 71.3 L Carbon Dioxide BUN 6 L Creatinine 0.5 L Glucose Calcium Ammonia Total Creatine Kinase 420 H Total Protein Albumin Urine WBC (Auto) 24.0 H 06/03/18 06/03/18 06/03/18 00:15 06:27 09:42 WBC MCV MCH MCHC RDW Seg Neuts % (Manual) Lymphocytes % (Manual) Lymphocytes # (Manual) Sodium 113 L* 118 L* 116 L* Potassium 3.5 L 3.5 L Chloride 77.2 L 79.1 L 78.2 L Carbon Dioxide BUN 5 L 4 L 4 L Creatinine 0.4 L 0.5 L 0.4 L Glucose Calcium 8.2 L 7.9 L 8.1 L Ammonia Total Creatine Kinase Total Protein Albumin Urine WBC (Auto) 06/03/18 06/03/18 06/03/18 14:41 14:41 20:45 WBC MCV MCH MCHC RDW Seg Neuts % (Manual) Lymphocytes % (Manual) Lymphocytes # (Manual) Sodium 114 L* 118 L* Potassium 3.1 L Chloride 76.3 L 79.7 L Carbon Dioxide BUN 4 L 3 L Creatinine 0.5 L 0.4 L Glucose Calcium 8.1 L 8.3 L Ammonia 23.0 L Total Creatine Kinase Total Protein Albumin Urine WBC (Auto) 06/04/18 06/04/18 06/04/18 04:39 09:47 09:47 WBC MCV 95 H MCH 33 H MCHC RDW 12.8 L Seg Neuts % (Manual) 92.0 H Lymphocytes % (Manual) 5.0 L Lymphocytes # (Manual) 0.3 L Sodium 123 L Potassium Chloride 85.2 L Carbon Dioxide BUN 5 L Creatinine 0.5 L Glucose 129 H Calcium 8.3 L Ammonia Total Creatine Kinase Total Protein 5.5 L Albumin 3.1 L Urine WBC (Auto) 06/05/18 06/06/18 06/07/18 04:29 05:25 07:11 WBC MCV MCH MCHC RDW Seg Neuts % (Manual) Lymphocytes % (Manual) Lymphocytes # (Manual) Sodium 126 L 133 L D 126 L D Potassium Chloride 90.4 L 95.1 L 86.1 L Carbon Dioxide BUN 8 L Creatinine 0.5 L 0.5 L 0.5 L Glucose 170 H 123 H 129 H Calcium 8.2 L 8.1 L Ammonia Total Creatine Kinase Total Protein Albumin Urine WBC (Auto) 06/08/18 06/09/18 06/10/18 11:03 06:13 07:14 WBC MCV MCH MCHC RDW Seg Neuts % (Manual) Lymphocytes % (Manual) Lymphocytes # (Manual) Sodium 134 L D Potassium Chloride 92.2 L Carbon Dioxide 31 H BUN Creatinine 0.5 L 0.6 L 0.5 L Glucose 106 H 130 H 126 H Calcium Ammonia Total Creatine Kinase Total Protein Albumin Urine WBC (Auto) 06/11/18 06/12/18 06/13/18 10:23 04:58 05:33 WBC MCV MCH MCHC RDW Seg Neuts % (Manual) Lymphocytes % (Manual) Lymphocytes # (Manual) Sodium 136 L 134 L Potassium 3.5 L Chloride Carbon Dioxide BUN 27 H Creatinine 0.4 L 0.5 L 0.6 L Glucose 155 H 141 H 112 H Calcium 8.1 L 7.9 L 8.3 L Ammonia Total Creatine Kinase Total Protein Albumin Urine WBC (Auto) 06/13/18 05:33 WBC 12.6 H MCV 97 H MCH 33 H MCHC RDW Seg Neuts % (Manual) Lymphocytes % (Manual) Lymphocytes # (Manual) Sodium Potassium Chloride Carbon Dioxide BUN Creatinine Glucose Calcium Ammonia Total Creatine Kinase Total Protein Albumin Urine WBC (Auto)
--- NOTE | 2018-06-13 10:55 | Progress Note ---
Assessment and Plan Acute COPD exacerbation Hypernatremia Acute Encephalopathy( metabolic, toxic) EtOH Abuse/Alcohol dependence and withdrawal -Acute hypoxic respiratory failure with COPD exacerbation -Tobacco use disorder -Moderate malnutrition, poa -Pyrexia 06/12/18: - Bronchodilators - Steroid taper - Supplemental oxygen to keep O2 sats 88-90% - Continue Lovenox, while monitoring platelets - Continue Protonix - Completed antibiotics for AE-COPD - free water and hypotonic solutions for hypernatremia -Aspiration precautions -Nutrition consult -ABG and CXR prn -PT/OT/Mobility as tolerated - continue CIWA protocol -Maintenance of sleep-wake cycle to decrease delirium -Scanlon culture and get CXR is any further fevers Goals of care to be re-addressed with family Continue to monitor closely, he is at risk for acute hemodynamic and metabolic decompensation Subjective Date of service: 06/13/18 Principal diagnosis: hyponatremia Interval history: Patient is seen today for: AE-COPD, acute metabolic-toxic encephalopathy, hyponatremia Seen and examined at bedside; 24hour events reviewed; nursing and respiratory care staff consulted; no adverse overnight events reported to me; Remains confused, tremulous in restraints. Fevers yesterday, no chills, no nausea or vomiting. Continues to require supplemental oxygen therapy, remains tremulous Objective Vital Signs - 12hr 06/13/18 06/13/18 06/13/18 02:06 04:23 07:17 Temperature 100.5 F H 98.4 F 99.2 F Pulse Rate 65 78 Pulse Rate [ From Monitor] Pulse Rate [ Throughout] Respiratory 18 20 Rate Respiratory Rate [ Throughout] Blood Pressure 122/64 126/83 O2 Sat by Pulse 93 94 Oximetry 06/13/18 06/13/18 06/13/18 08:23 08:49 09:11 Temperature Pulse Rate 102 H Pulse Rate [ From Monitor] Pulse Rate [ 90 90 Throughout] Respiratory Rate Respiratory 20 20 Rate [ Throughout] Blood Pressure 151/84 O2 Sat by Pulse Oximetry 06/13/18 06/13/18 09:49 09:51 Temperature Pulse Rate 88 Pulse Rate [ 88 From Monitor] Pulse Rate [ Throughout] Respiratory 20 Rate Respiratory Rate [ Throughout] Blood Pressure O2 Sat by Pulse 94 Oximetry Constitutional: alert, appears uncomfortable, other (confused and having shakes.) Eyes: non-icteric ENT: oropharynx moist Neck: supple, no JVD Effort: normal Ascultation: Bilateral: other (prolonged expiratory phase) Cardiovascular: regular rate and rhythm Gastrointestinal: normoactive bowel sounds, soft, non-tender Integumentary: normal Extremities: no cyanosis, no edema Neurologic: non-focal exam, pupils equal and round, CN II-XII normal, other (Having tremors and shakes.) Psychiatric: other (confused) CBC and BMP: 06/14/18 05:14 06/14/18 05:14 Abnormal lab findings: Abnormal Labs 06/02/18 06/02/18 06/02/18 21:25 21:25 22:03 WBC MCV MCH 33 H MCHC 35 H RDW 12.8 L Seg Neuts % (Manual) 80.0 H Lymphocytes % (Manual) Lymphocytes # (Manual) 0.8 L Sodium 109 L* Potassium Chloride 71.3 L Carbon Dioxide BUN 6 L Creatinine 0.5 L Glucose Calcium Ammonia Total Creatine Kinase 420 H Total Protein Albumin Urine WBC (Auto) 24.0 H 06/03/18 06/03/18 06/03/18 00:15 06:27 09:42 WBC MCV MCH MCHC RDW Seg Neuts % (Manual) Lymphocytes % (Manual) Lymphocytes # (Manual) Sodium 113 L* 118 L* 116 L* Potassium 3.5 L 3.5 L Chloride 77.2 L 79.1 L 78.2 L Carbon Dioxide BUN 5 L 4 L 4 L Creatinine 0.4 L 0.5 L 0.4 L Glucose Calcium 8.2 L 7.9 L 8.1 L Ammonia Total Creatine Kinase Total Protein Albumin Urine WBC (Auto) 06/03/18 06/03/18 06/03/18 14:41 14:41 20:45 WBC MCV MCH MCHC RDW Seg Neuts % (Manual) Lymphocytes % (Manual) Lymphocytes # (Manual) Sodium 114 L* 118 L* Potassium 3.1 L Chloride 76.3 L 79.7 L Carbon Dioxide BUN 4 L 3 L Creatinine 0.5 L 0.4 L Glucose Calcium 8.1 L 8.3 L Ammonia 23.0 L Total Creatine Kinase Total Protein Albumin Urine WBC (Auto) 06/04/18 06/04/18 06/04/18 04:39 09:47 09:47 WBC MCV 95 H MCH 33 H MCHC RDW 12.8 L Seg Neuts % (Manual) 92.0 H Lymphocytes % (Manual) 5.0 L Lymphocytes # (Manual) 0.3 L Sodium 123 L Potassium Chloride 85.2 L Carbon Dioxide BUN 5 L Creatinine 0.5 L Glucose 129 H Calcium 8.3 L Ammonia Total Creatine Kinase Total Protein 5.5 L Albumin 3.1 L Urine WBC (Auto) 06/05/18 06/06/18 06/07/18 04:29 05:25 07:11 WBC MCV MCH MCHC RDW Seg Neuts % (Manual) Lymphocytes % (Manual) Lymphocytes # (Manual) Sodium 126 L 133 L D 126 L D Potassium Chloride 90.4 L 95.1 L 86.1 L Carbon Dioxide BUN 8 L Creatinine 0.5 L 0.5 L 0.5 L Glucose 170 H 123 H 129 H Calcium 8.2 L 8.1 L Ammonia Total Creatine Kinase Total Protein Albumin Urine WBC (Auto) 06/08/18 06/09/18 06/10/18 11:03 06:13 07:14 WBC MCV MCH MCHC RDW Seg Neuts % (Manual) Lymphocytes % (Manual) Lymphocytes # (Manual) Sodium 134 L D Potassium Chloride 92.2 L Carbon Dioxide 31 H BUN Creatinine 0.5 L 0.6 L 0.5 L Glucose 106 H 130 H 126 H Calcium Ammonia Total Creatine Kinase Total Protein Albumin Urine WBC (Auto) 06/11/18 06/12/18 06/13/18 10:23 04:58 05:33 WBC MCV MCH MCHC RDW Seg Neuts % (Manual) Lymphocytes % (Manual) Lymphocytes # (Manual) Sodium 136 L 134 L Potassium 3.5 L Chloride Carbon Dioxide BUN 27 H Creatinine 0.4 L 0.5 L 0.6 L Glucose 155 H 141 H 112 H Calcium 8.1 L 7.9 L 8.3 L Ammonia Total Creatine Kinase Total Protein Albumin Urine WBC (Auto) 06/13/18 05:33 WBC 12.6 H MCV 97 H MCH 33 H MCHC RDW Seg Neuts % (Manual) Lymphocytes % (Manual) Lymphocytes # (Manual) Sodium Potassium Chloride Carbon Dioxide BUN Creatinine Glucose Calcium Ammonia Total Creatine Kinase Total Protein Albumin Urine WBC (Auto)
--- NOTE | 2018-06-13 11:40 | Progress Note ---
Assessment and Plan Assessment and plan: Patient is a 72-year-old man with history of alcoholism and likely dementia which has not been diagnosed but suspected by family who presented to [facility] ED with AMS. It appears his recently and his health has been declining every since with increase alcohol consumption. The patient was found to have a very low sodium, agitated and confused. * CT head no acute findings * Chest x-ray no acute findings -Acute metabolic encephalopathy, suspect ETOH related but no serum etoh level or UDS upon admission: continue to treat with CIWA protocol for alcohol withdrawal -Alcohol dependence and withdrawal -Hyponatremia: Continue saline IV fluid, salt tabs -Hypokalemia, k was replaced, monitor levels -UTI suspected, and ruled out via neg urine cx -Afib with RVR, PAF with hypercoaguable state: Cardiology managed -Beer potomania; counseling done -Acute hypoxic respiratory failure with COPD exacerbation -Tobacco abuse, current every day smoker: counseling done -Dementia: mental health to see -Severe malnutrition, poa -Low grade temp last night 100.5F 06/12/18: get blood culture, and cxr Restraints renewed, still confused History Interval history: Patient was seen and examined. Follow-up on current diagnosis of AMS, still present. Overnight uneventful. Imaging, nursing note, chart, labs and old chart reviewed. Discussed with patient. Hospitalist Physical - Physical exam Narrative exam: Gen: thin frail, chronically disable appearing, NAD, Awake, Alert, Orientated x1 HEENT: NCAT, EOMI, PERRL, OP Clear Neck: supple, no adenopathy, no thyromegaly, no JVD CVS/Heart: irregular irregular, normal S1S2, pulses present bilaterally Chest/Lungs: CTA B, Symmetrical chest expansion, good air entry bilaterally GI/Abdomen: soft, NTND, good bowel sounds, no guarding or rebound /Bladder: no suprapubic tenderness, no CVA or paraspinal tenderness Extermity/Skin: no c/c/e, no obvious rash MSK: FROM x 4 Neuro: CN 2-12 grossly intact, no new focal deficits Psych: confused - Constitutional Vitals: Temp Pulse Resp BP Pulse Ox 99.2 F 88 20 151/84 94 06/13/18 07:17 06/13/18 09:51 06/13/18 09:51 06/13/18 09:11 06/13/18 09:51 General appearance: Present: no acute distress Results - Labs CBC & Chem 7: 06/13/18 05:33 06/13/18 05:33 Labs: Laboratory Last Values WBC 12.6 K/mm3 (4.5-11.0) H 06/13/18 05:33 RBC 3.80 M/mm3 (3.65-5.03) 06/13/18 05:33 Hgb 12.4 gm/dl (11.8-15.2) 06/13/18 05:33 Hct 36.7 % (35.5-45.6) 06/13/18 05:33 MCV 97 fl (84-94) H 06/13/18 05:33 MCH 33 pg (28-32) H 06/13/18 05:33 MCHC 34 % (32-34) 06/13/18 05:33 RDW 13.5 % (13.2-15.2) 06/13/18 05:33 Plt Count 150 K/mm3 (140-440) 06/13/18 05:33 Barber % (Auto) [facility] 06/02/18 21:25 Add Manual Diff Complete 06/04/18 09:47 Total Counted 100 06/04/18 09:47 Seg Neuts % (Manual) 92.0 % (40.0-70.0) H 06/04/18 09:47 Band Neutrophils % 0 % 06/04/18 09:47 Lymphocytes % (Manual) 5.0 % (13.4-35.0) L 06/04/18 09:47 Reactive Lymphs % (Man) 0 % 06/04/18 09:47 Monocytes % (Manual) 3.0 % (0.0-7.3) 06/04/18 09:47 Eosinophils % (Manual) 0 % (0.0-4.3) 06/04/18 09:47 Basophils % (Manual) 0 % (0.0-1.8) 06/04/18 09:47 Metamyelocytes % 0 % 06/04/18 09:47 Myelocytes % 0 % 06/04/18 09:47 Promyelocytes % 0 % 06/04/18 09:47 Blast Cells % 0 % 06/04/18 09:47 Nucleated RBC % Not Reportable 06/04/18 09:47 Seg Neutrophils # Man 4.9 K/mm3 (1.8-7.7) 06/04/18 09:47 Band Neutrophils # 0.0 K/mm3 06/04/18 09:47 Lymphocytes # (Manual) 0.3 K/mm3 (1.2-5.4) L 06/04/18 09:47 Abs React Lymphs (Man) 0.0 K/mm3 06/04/18 09:47 Monocytes # (Manual) 0.2 K/mm3 (0.0-0.8) 06/04/18 09:47 Eosinophils # (Manual) 0.0 K/mm3 (0.0-0.4) 06/04/18 09:47 Basophils # (Manual) 0.0 K/mm3 (0.0-0.1) 06/04/18 09:47 Metamyelocytes # 0.0 K/mm3 06/04/18 09:47 Myelocytes # 0.0 K/mm3 06/04/18 09:47 Promyelocytes # 0.0 K/mm3 06/04/18 09:47 Blast Cells # 0.0 K/mm3 06/04/18 09:47 WBC Morphology Not Reportable 06/04/18 09:47 Hypersegmented Neuts Not Reportable 06/04/18 09:47 Hyposegmented Neuts Not Reportable 06/04/18 09:47 Hypogranular Neuts Not Reportable 06/04/18 09:47 Smudge Cells Not Reportable 06/04/18 09:47 Toxic Granulation 1+ 06/04/18 09:47 Toxic Vacuolation Not Reportable 06/04/18 09:47 Dohle Bodies Not Reportable 06/04/18 09:47 Pelger-Huet Anomaly Not Reportable 06/04/18 09:47 Dashawn Rods Not Reportable 06/04/18 09:47 Platelet Estimate Consistent w auto 06/04/18 09:47 Clumped Platelets Not Reportable 06/04/18 09:47 Plt Clumps, EDTA Not Reportable 06/04/18 09:47 Large Platelets Not Reportable 06/04/18 09:47 Giant Platelets Not Reportable 06/04/18 09:47 Platelet Satelliting Not Reportable 06/04/18 09:47 Plt Morphology Comment Not Reportable 06/04/18 09:47 RBC Morphology Normal 06/04/18 09:47 Dimorphic RBCs Not Reportable 06/04/18 09:47 Polychromasia Not Reportable 06/04/18 09:47 Hypochromasia Not Reportable 06/04/18 09:47 Poikilocytosis Not Reportable 06/04/18 09:47 Anisocytosis Not Reportable 06/04/18 09:47 Microcytosis Not Reportable 06/04/18 09:47 Macrocytosis Not Reportable 06/04/18 09:47 Spherocytes Not Reportable 06/04/18 09:47 Pappenheimer Bodies Not Reportable 06/04/18 09:47 Sickle Cells Not Reportable 06/04/18 09:47 Target Cells Not Reportable 06/04/18 09:47 Tear Drop Cells Not Reportable 06/04/18 09:47 Ovalocytes Not Reportable 06/04/18 09:47 Helmet Cells Not Reportable 06/04/18 09:47 [place] Bodies Not Reportable 06/04/18 09:47 [place] Rings Not Reportable 06/04/18 09:47 Mic Cells Not Reportable 06/04/18 09:47 Bite Cells Not Reportable 06/04/18 09:47 Crenated Cell Not Reportable 06/04/18 09:47 Elliptocytes Not Reportable 06/04/18 09:47 Acanthocytes (Spur) Not Reportable 06/04/18 09:47 Rouleaux Not Reportable 06/04/18 09:47 Hemoglobin C Crystals Not Reportable 06/04/18 09:47 Schistocytes Not Reportable 06/04/18 09:47 Malaria parasites Not Reportable 06/04/18 09:47 Rajesh Bodies Not Reportable 06/04/18 09:47 Hem Pathologist Commnt No 06/04/18 09:47 Sodium 142 mmol/L (137-145) D 06/13/18 05:33 Potassium 4.0 mmol/L (3.6-5.0) 06/13/18 05:33 Chloride 104.5 mmol/L (98-107) 06/13/18 05:33 Carbon Dioxide 25 mmol/L (22-30) 06/13/18 05:33 Anion Gap 17 mmol/L 06/13/18 05:33 BUN 27 mg/dL (9-20) H 06/13/18 05:33 Creatinine 0.6 mg/dL (0.8-1.5) L 06/13/18 05:33 Estimated GFR > 60 ml/min 06/13/18 05:33 BUN/Creatinine Ratio 45 % 06/13/18 05:33 Glucose 112 mg/dL (75-100) H 06/13/18 05:33 POC Glucose 93 (70-105) 06/02/18 21:18 Osmolality 249 Mosm/kg 06/03/18 20:45 Calcium 8.3 mg/dL (8.4-10.2) L 06/13/18 05:33 Phosphorus 3.90 mg/dL (2.5-4.5) 06/04/18 09:47 Magnesium 1.80 mg/dL (1.7-2.3) 06/04/18 09:47 Total Bilirubin 0.40 mg/dL (0.1-1.2) 06/04/18 04:39 Direct Bilirubin < 0.2 mg/dL (0-0.2) 06/04/18 04:39 Indirect Bilirubin 0.2 mg/dL 06/04/18 04:39 AST 31 units/L (5-40) 06/04/18 04:39 ALT 26 units/L (7-56) 06/04/18 04:39 Alkaline Phosphatase 66 units/L (35-129) 06/04/18 04:39 Ammonia 23.0 umol/L (25-60) L 06/03/18 14:41 Total Creatine Kinase 420 units/L (55-170) H 06/02/18 21:25 Troponin T < 0.010 ng/mL (0.00-0.029) 06/02/18 21:25 NT-Pro-B Natriuret Pep 379.8 pg/mL (0-900) 06/02/18 21:25 Total Protein 5.5 g/dL (6.3-8.2) L 06/04/18 04:39 Albumin 3.1 g/dL (3.9-5) L 06/04/18 04:39 Albumin/Globulin Ratio 1.3 % 06/04/18 04:39 TSH 1.100 mlU/mL (0.270-4.200) 06/03/18 20:45 Urine Color Yellow (Yellow) 06/02/18 22:03 Urine Turbidity Slightly-cloudy (Clear) 06/02/18 22:03 Urine pH 6.0 (5.0-7.0) 06/02/18 22:03 Ur Specific Lee 1.004 (1.003-1.030) 06/02/18 22:03 Urine Protein <15 mg/dl mg/dL (Negative) 06/02/18 22:03 Urine Glucose (UA) Neg mg/dL (Negative) 06/02/18 22:03 Urine Ketones Neg mg/dL (Negative) 06/02/18 22:03 Urine Blood Sm (Negative) 06/02/18 22:03 Urine Nitrite Neg (Negative) 06/02/18 22:03 Urine Bilirubin Neg (Negative) 06/02/18 22:03 Urine Urobilinogen 2.0 mg/dL (<2.0) 06/02/18 22:03 Ur Leukocyte Esterase Lg (Negative) 06/02/18 22:03 Urine WBC (Auto) 24.0 /HPF (0.0-6.0) H 06/02/18 22:03 Urine RBC (Auto) 3.0 /HPF (0.0-6.0) 06/02/18 22:03 U Epithel Cells (Auto) < 1.0 /HPF (0-13.0) 06/02/18 22:03 Urine Bacteria (Auto) 1+ /HPF (Negative) 06/02/18 22:03 Urine Osmolality 203 Mosm/kg 06/02/18 22:02 Urine Sodium 20 mmol/L 06/02/18 22:02 Active Medications - Current Medications Current Medications: Generic Name Dose Route Start Last Admin Trade Name Freq PRN Reason Stop Dose Admin Acetaminophen 650 mg 06/03/18 00:05 06/13/18 03:03 Tylenol PO 650 mg Q4H PRN Administration Pain MILD(1-3)/Fever >100.5/CHANCE Albuterol 2.5 mg 06/03/18 13:11 06/03/18 15:01 Proventil IH 2.5 mg Q4HRT PRN Administration Shortness Of Breath Albuterol/Ipratropium 1 ampul 06/05/18 20:00 06/13/18 08:23 Duoneb *Not For Prn Use* IH 1 ampul TIDRT CINDA Administration Arformoterol Tartrate 15 mcg 06/03/18 20:00 06/13/18 08:23 Brovana Nebu IH 15 mcg Q12HRT CINDA Administration Budesonide 0.5 mg 06/03/18 20:00 06/13/18 08:23 Pulmicort IH 0.5 mg Q12HRT CINDA Administration Clonidine HCl 0.1 mg 06/11/18 22:00 06/12/18 21:44 Catapres PO 0.1 mg HS CINDA Administration Enoxaparin Sodium 40 mg 06/03/18 10:00 06/13/18 09:07 Lovenox SUB-Q 40 mg QDAY@1000 CINDA Administration Folic Acid 1 mg 06/04/18 10:00 06/13/18 09:10 Folvite PO 1 mg QDAY CINDA Administration Haloperidol Lactate 5 mg 06/09/18 09:51 06/10/18 08:36 Haldol IM 5 mg Q6H PRN Administration Acute Psychosis Hydralazine HCl 10 mg 06/06/18 12:10 06/09/18 14:26 Apresoline IV 10 mg Q4H PRN Administration BP >160/100 Lorazepam 2 mg 06/03/18 14:00 Ativan PO Q1H PRN CIWA-Ar 8-15 Lorazepam 4 mg 06/03/18 14:00 06/10/18 17:15 Ativan IV 2 mg Q1H PRN Administration CIWA-Ar 16-25 Lorazepam 4 mg 06/03/18 14:00 Ativan IV Q15MIN PRN CIWA-Ar >25 Melatonin 5 mg 06/07/18 19:41 06/10/18 23:30 Melatonin PO 5 mg QHS PRN Administration Sleep Methylprednisolone Sodium Succinate 60 mg 06/05/18 15:00 06/13/18 05:21 Solu-Medrol IV 60 mg Q8HR CINDA Administration Metoprolol Tartrate 50 mg 06/11/18 10:00 06/13/18 09:11 Lopressor PO 50 mg BID CINDA Administration Mirtazapine 15 mg 06/10/18 22:00 06/12/18 21:43 Remeron PO 15 mg QHS CINDA Administration Multivitamins 5 ml 06/04/18 10:00 06/13/18 09:07 Centrum Liq PO 5 ml QDAY CINDA Administration Ondansetron HCl 4 mg 06/03/18 00:05 Zofran IV Q8H PRN Nausea And Vomiting Pantoprazole Sodium 40 mg 06/06/18 10:00 06/13/18 09:10 Protonix PO 40 mg DAILY CINDA Administration Sodium Chloride 10 ml 06/03/18 10:00 06/13/18 09:07 Sodium Chloride Flush Syringe 10 Ml IV 10 ml BID CINDA Administration Sodium Chloride 10 ml 06/03/18 00:05 Sodium Chloride Flush Syringe 10 Ml IV PRN PRN LINE FLUSH Sodium Chloride 2 gm 06/11/18 19:00 06/13/18 07:06 Sodium Chloride PO Not Given TID CINDA Tamsulosin HCl 0.4 mg 06/03/18 12:00 06/13/18 09:10 Flomax PO 0.4 mg QDAY CINDA Administration Thiamine HCl 100 mg 06/04/18 10:00 06/13/18 09:10 Vitamin B-1 PO 100 mg QDAY CINDA Administration Nutrition/Malnutrition Assess - Dietary Evaluation Nutrition/Malnutrition Findings: Nutrition Notes Start: 06/09/18 14:29 Freq: Status: Active Protocol: Document 06/11/18 10:39 SA (Rec: 06/11/18 10:47 [facility]-[id number]) Co-Sign 06/11/18 10:39 LP Nutrition Notes Initial or Follow up Reassessment Current Diagnosis COPD,Hypertension,Heart Failure Other Pertinent Diagnosis Alcoholic Hx, AMS Current Diet Full liquid Labs/Tests Cr: 0.5 Glu: 126 Pertinent Medications D5ns @ 125 mls/hr Solu Medrol Height 5 ft 10 in Weight 61.235 kg Freedom Body Weight (kg) 75.45 BMI 19.3 Subjective/Other Information Patient confused at time of visit and unable to speak. Spoke with pt's nurse, but it is her first day with him so she is unsure of percentage of intakes. Observed breakfast tray with around 25% eaten. Observed 3 unopened ONS beside bed. Percent of energy/protein needs met: 15%/15% Burn Absent Trauma Absent #1 Nutrition Diagnosis Inadequate oral intake Diagnosis Progress(for reassessment Continues documentation) Is patient on ventilator? No Is Patient Ambulatory and/or Out of Bed No REE-([facility]-confined to bed) 1642.596 Kcal/Kg value to use for calculation 32 Approximate Energy Requirements Using 1960 kcal/Kg Calculation Used for Recommendations Kcal/kg Additional Notes Protein Needs: 61-73g (1-1.2g/ kg) Fluid Needs: 1 ml/kcal Nutrition Intervention Change Diet Order: Continue full liquid and continue to advance as tolerated Add Supplement/Snack (indicate name/kcal Ensure Enlive /protein ) Provides kCal: 350 Provides Protein (gm) 20 Goal #1 Meet at least 75% of kcal and pro needs via PO intake Anticipated Discharge Needs: Unable to determine at this time Follow-Up By: 06/13/18 Additional Comments F/U: PO and ONS intake
[2018-06-13] MEDS: ROCEPHIN/NS 1 GM/50 ML 1 GM/50 ML BAG IV SCH (13:16)
--- NOTE | 2018-06-13 14:40 | XRay Report ---
PORTABLE CHEST INDICATION: Wet respirations. COMPARISON: 06/03/2018 FINDINGS: Portable, frontal chest radiograph suggests slight increased bronchovascular markings towards the bases, left more than right, presumed technical. No pleural effusions or CHF. Stable cardiomediastinal silhouette. Slight aortic knob calcifications. EKG leads. Demineralized bones with various bony degenerative changes. CONCLUSION: No acute significant chest process, as described. Thank you for the opportunity to participate in this patient's care.
--- NOTE | 2018-06-13 17:02 | Progress Note ---
Assessment and Plan - Patient Problems (1) Acute hyponatremia Current Visit: Yes Status: Acute Plan to address problem: Acute hyponatremia :resolved Sodium level is declining today. I reviewed urine electrolytes urine sodium 20 urine osmolarity 203 Since urine osmolality is greater than 100 is likely some component of inappropriate ADH production However given his significant alcohol abuse likely some complaints of impaired solute intake in the setting of excessive fluid intake Discontinue Saline infusion. Decrease salt tablets 1 g 3 times a day, can stop if sodium is above 135 consistently . (2) Hypertension Current Visit: Yes Status: Chronic Qualifiers: Hypertension type: essential hypertension Qualified Code(s): I10 - Essential (primary) hypertension Plan to address problem: HTN: UNControlled Monitor for alcohol withdrawal Continue current medications (3) Alcohol abuse Current Visit: Yes Status: Chronic Plan to address problem: Alcohol abuse monitor for alcohol withdrawal Continue thiamine (4) COPD exacerbation Current Visit: No Status: Acute Plan to address problem: COPD exacerbation currently on Solu-Medrol 3 times a day Subjective Principal diagnosis: hyponatremia Interval history: 72-year-old gentleman, COPD, hypertension, alcohol abuse found to have severe hyponatremia Patient seen today Has tremors has no edema Denies any abdominal pain or shortness of breath. IVF was discontinued he is tremulous remains on supplemental oxygen breathing treatment ongoing Discussed with floor nurse has had difficulty with swallowing , okay to hold salt tablets as sodium is improved until he can swallow no edema. Objective - Vital Signs Vital signs: Vital Signs - 12hr 06/13/18 06/13/18 06/13/18 07:17 08:23 08:49 Temperature 99.2 F Pulse Rate 78 Pulse Rate [ From Monitor] Pulse Rate [ 90 90 Throughout] Respiratory 20 Rate Respiratory 20 20 Rate [ Throughout] Blood Pressure 126/83 O2 Sat by Pulse 94 Oximetry 06/13/18 06/13/18 06/13/18 09:11 09:49 09:51 Temperature Pulse Rate 102 H 88 Pulse Rate [ 88 From Monitor] Pulse Rate [ Throughout] Respiratory 20 Rate Respiratory Rate [ Throughout] Blood Pressure 151/84 O2 Sat by Pulse 94 Oximetry 06/13/18 06/13/18 06/13/18 14:07 14:09 14:22 Temperature Pulse Rate Pulse Rate [ From Monitor] Pulse Rate [ 78 81 Throughout] Respiratory Rate Respiratory 18 20 Rate [ Throughout] Blood Pressure O2 Sat by Pulse 96 Oximetry 06/13/18 06/13/18 14:57 14:58 Temperature 97.4 F L Pulse Rate 92 H Pulse Rate [ From Monitor] Pulse Rate [ Throughout] Respiratory 20 Rate Respiratory Rate [ Throughout] Blood Pressure 114/79 O2 Sat by Pulse 92 Oximetry - General Appearance General appearance: well-developed EENT: ATNC, PERRL, mucous membranes moist Neck: no JVD Respiratory: Present: Clear to Ascultation Cardiology: regular, S1S2 Gastrointestinal: normal, normoactive bowel sounds Integumentary: no rash Neurologic: no focal deficit, CN 3-12 intact Psychiatric: mood/affect appropriate - Lab 06/13/18 05:33 06/13/18 05:33 Most recent lab results Calcium 8.3 mg/dL (8.4-10.2) L 06/13/18 05:33 Phosphorus 3.90 mg/dL (2.5-4.5) 06/04/18 09:47 Magnesium 1.80 mg/dL (1.7-2.3) 06/04/18 09:47 Urine Sodium 20 mmol/L 06/02/18 22:02 Medications & Allergies - Medications Allergies/Adverse Reactions: Allergies diphenhydramine HCl [From Benadryl] Allergy (Verified 09/24/14 11:56) Unknown HALLUCINATIONS Home Medications: Home Medications Medication Instructions Recorded Confirmed Last Taken Type Albuterol *Only Ed* [Proventil 2.5 mg IH Q4HRT PRN #1 nebu 10/03/14 06/03/18 Unknown Rx 0.5% NEBS] Folic Acid [Folvite] 1 mg PO QDAY #30 tablet 10/03/14 06/03/18 Unknown Rx Furosemide [Lasix TAB] 20 mg PO QDAY #30 tablet 10/03/14 06/03/18 Unknown Rx Metoprolol [Lopressor TAB] 12.5 mg PO BID #60 tablet 10/03/14 06/03/18 Unknown Rx Multivitamins Liq [Multiple 5 ml PO QDAY 30 Days oral.liqd 10/03/14 06/03/18 Unknown Rx Vitamin Liq (Theragran)] Thiamine [Vitamin B-1] 100 mg PO QDAY #30 tablet 10/03/14 06/03/18 Unknown Rx Active Medications: Generic Name Dose Route Start Last Admin Trade Name Freq PRN Reason Stop Dose Admin Acetaminophen 650 mg 06/03/18 00:05 06/13/18 03:03 Tylenol PO 650 mg Q4H PRN Administration Pain MILD(1-3)/Fever >100.5/CHANCE Albuterol 2.5 mg 06/03/18 13:11 06/03/18 15:01 Proventil IH 2.5 mg Q4HRT PRN Administration Shortness Of Breath Albuterol/Ipratropium 1 ampul 06/05/18 20:00 06/13/18 14:07 Duoneb *Not For Prn Use* IH 1 ampul TIDRT CINDA Administration Arformoterol Tartrate 15 mcg 06/03/18 20:00 06/13/18 08:23 Brovana Nebu IH 15 mcg Q12HRT CINDA Administration Budesonide 0.5 mg 06/03/18 20:00 06/13/18 08:23 Pulmicort IH 0.5 mg Q12HRT CINDA Administration Clonidine HCl 0.1 mg 06/11/18 22:00 06/12/18 21:44 Catapres PO 0.1 mg HS CINDA Administration Enoxaparin Sodium 40 mg 06/03/18 10:00 06/13/18 09:07 Lovenox SUB-Q 40 mg QDAY@1000 CINDA Administration Folic Acid 1 mg 06/04/18 10:00 06/13/18 09:10 Folvite PO 1 mg QDAY CINDA Administration Haloperidol Lactate 5 mg 06/09/18 09:51 06/10/18 08:36 Haldol IM 5 mg Q6H PRN Administration Acute Psychosis Hydralazine HCl 10 mg 06/06/18 12:10 06/09/18 14:26 Apresoline IV 10 mg Q4H PRN Administration BP >160/100 Ceftriaxone Sodium 1 gm in 50 mls @ 100 mls/hr 06/13/18 12:00 06/13/18 13:16 Rocephin/Ns 1 Gm/50 Ml IV 100 mls/hr Q24HR CINDA Administration Protocol Lorazepam 2 mg 06/03/18 14:00 Ativan PO Q1H PRN CIWA-Ar 8-15 Lorazepam 4 mg 06/03/18 14:00 06/10/18 17:15 Ativan IV 2 mg Q1H PRN Administration CIWA-Ar 16-25 Lorazepam 4 mg 06/03/18 14:00 Ativan IV Q15MIN PRN CIWA-Ar >25 Melatonin 5 mg 06/07/18 19:41 06/10/18 23:30 Melatonin PO 5 mg QHS PRN Administration Sleep Methylprednisolone Sodium Succinate 60 mg 06/05/18 15:00 06/13/18 13:17 Solu-Medrol IV 60 mg Q8HR CINDA Administration Metoprolol Tartrate 50 mg 06/11/18 10:00 06/13/18 09:11 Lopressor PO 50 mg BID CINDA Administration Mirtazapine 15 mg 06/10/18 22:00 06/12/18 21:43 Remeron PO 15 mg QHS CINDA Administration Multivitamins 5 ml 06/04/18 10:00 06/13/18 09:07 Centrum Liq PO 5 ml QDAY CINDA Administration Ondansetron HCl 4 mg 06/03/18 00:05 Zofran IV Q8H PRN Nausea And Vomiting Pantoprazole Sodium 40 mg 06/06/18 10:00 06/13/18 09:10 Protonix PO 40 mg DAILY CINDA Administration Sodium Chloride 10 ml 06/03/18 10:00 06/13/18 09:07 Sodium Chloride Flush Syringe 10 Ml IV 10 ml BID CINDA Administration Sodium Chloride 10 ml 06/03/18 00:05 Sodium Chloride Flush Syringe 10 Ml IV PRN PRN LINE FLUSH Sodium Chloride 2 gm 06/11/18 19:00 06/13/18 13:23 Sodium Chloride PO Not Given TID CINDA Tamsulosin HCl 0.4 mg 06/03/18 12:00 06/13/18 09:10 Flomax PO 0.4 mg QDAY CINDA Administration Thiamine HCl 100 mg 06/04/18 10:00 06/13/18 09:10 Vitamin B-1 PO 100 mg QDAY CINDA Administration
[2018-06-14] MEDS: SOLU-Medrol IV SCH ×3 (00:09→14:48)
[2018-06-14] MEDS: LOPRESSOR PO SCH ×3 (00:11→22:30)
[2018-06-14] MEDS: CATAPRES PO SCH ×2 (00:12→22:29)
[2018-06-14] MEDS: REMERON PO SCH ×2 (00:12→22:31)
[2018-06-14] MEDS: SODIUM CHLORIDE FLUSH SYRINGE 10 ML IV SCH ×3 (00:13→22:31)
[2018-06-14 05:41] LABS: Hematocrit 38.2 % (35.5-45.6); Hemoglobin 12.5 gm/dl (11.8-15.2); Mean Corpuscular HGB Conc 33 % (32-34); Mean Corpuscular Volume 98 fl (84-94); Platelet Count 133 K/mm3 (140-440); Red Blood Count 3.88 M/mm3 (3.65-5.03); Red Cell Distribution Width 13.7 % (13.2-15.2)
[2018-06-14 06:02] LABS: BUN/Creatinine Ratio 52; Blood Urea Nitrogen 31 mg/dL (9-20); Calcium 8.4 mg/dL (8.4-10.2); Hemolysis Index 5
[2018-06-14] MEDS: BROVANA NEBU IH SCH ×2 (09:50→20:27)
[2018-06-14] MEDS: PULMICORT IH SCH ×2 (09:50→20:27)
[2018-06-14] MEDS: DUONEB *Not for PRN Use IH SCH ×3 (09:50→20:27)
[2018-06-14] MEDS: LOVENOX SUB-Q SCH (10:02)
[2018-06-14] MEDS: ROCEPHIN/NS 1 GM/50 ML 1 GM/50 ML BAG IV SCH (10:02)
[2018-06-14] MEDS: SODIUM CHLORIDE PO SCH (10:03)
[2018-06-14] MEDS: FLOMAX PO SCH (10:04)
[2018-06-14] MEDS: Centrum Liq PO SCH (10:04)
[2018-06-14] MEDS: FOLVITE PO SCH (10:04)
[2018-06-14] MEDS: VITAMIN B-1 PO SCH (10:05)
[2018-06-14] MEDS: PROTONIX PO SCH (10:05)
--- NOTE | 2018-06-14 12:28 | Progress Note ---
Assessment and Plan Acute COPD exacerbation Acute Hyponatremia Acute Encephalopathy (? Wernicke's) EtOH Abuse - continue thiamine and folic acid - continue Albuterol/Atrovent aerosol treatments q6hrs - Continue solumedrol (tapered to 40mg IV daily) - continue supplemental oxygen as necessary to keep O2 sat's > 90% - Continue Lovenox - Continue Protonix - Continue empiric CAP AB's (added zithromax X 3 days) - free water restriction - continue to Watch for DTs. - aspiration and falls precautions - continue other care per attending / other consultants ... will likely need placement ... re-evaluate in am & prn Subjective Date of service: 06/14/18 Principal diagnosis: AE-COPD; Acute metabolic-toxic encephalopathy; hyponatremia Interval history: Patient is seen today for: AE-COPD; Acute metabolic-toxic encephalopathy; hyponatremia Seen and examined at bedside; 24hour events reviewed; nursing and respiratory care staff consulted; no adverse overnight events reported to me; resting in bed; jittery/tremulous; not following prompts; No emesis or overt aspiration. Objective Vital Signs - 12hr 06/14/18 06/14/18 06/14/18 02:00 02:54 08:00 Temperature 98.2 F 97.7 F Pulse Rate 74 21 L Respiratory 20 21 Rate Blood Pressure Blood Pressure 170/87 158/83 [Left] O2 Sat by Pulse 94 99 Oximetry 06/14/18 06/14/18 08:01 10:00 Temperature 97.7 F Pulse Rate 86 Respiratory 21 Rate Blood Pressure 158/83 Blood Pressure [Left] O2 Sat by Pulse Oximetry Constitutional: no acute distress, other (elderly and chronically ill looking CM with mildly increased respiratory effort at rest) Eyes: non-icteric ENT: oropharynx moist Neck: supple, no JVD, other (no thyromegaly) Effort: mildly labored Ascultation: Bilateral: other (prolonged expiratory phase) Percussion: Bilateral: not dull Cardiovascular: regular rate and rhythm Gastrointestinal: normoactive bowel sounds, soft, non-tender, non-distended Integumentary: normal Extremities: no cyanosis, no edema, pink and warm, pulses normal Neurologic: non-focal exam (grossly), pupils equal and round, CN II-XII normal Psychiatric: other (delirious) CBC and BMP: 06/15/18 04:47 06/15/18 04:47 Abnormal lab findings: Abnormal Labs 06/02/18 06/02/18 06/02/18 21:25 21:25 22:03 WBC MCV MCH 33 H MCHC 35 H RDW 12.8 L Plt Count Seg Neuts % (Manual) 80.0 H Lymphocytes % (Manual) Lymphocytes # (Manual) 0.8 L Sodium 109 L* Potassium Chloride 71.3 L Carbon Dioxide BUN 6 L Creatinine 0.5 L Glucose Calcium Ammonia Total Creatine Kinase 420 H Total Protein Albumin Urine WBC (Auto) 24.0 H 06/03/18 06/03/18 06/03/18 00:15 06:27 09:42 WBC MCV MCH MCHC RDW Plt Count Seg Neuts % (Manual) Lymphocytes % (Manual) Lymphocytes # (Manual) Sodium 113 L* 118 L* 116 L* Potassium 3.5 L 3.5 L Chloride 77.2 L 79.1 L 78.2 L Carbon Dioxide BUN 5 L 4 L 4 L Creatinine 0.4 L 0.5 L 0.4 L Glucose Calcium 8.2 L 7.9 L 8.1 L Ammonia Total Creatine Kinase Total Protein Albumin Urine WBC (Auto) 06/03/18 06/03/18 06/03/18 14:41 14:41 20:45 WBC MCV MCH MCHC RDW Plt Count Seg Neuts % (Manual) Lymphocytes % (Manual) Lymphocytes # (Manual) Sodium 114 L* 118 L* Potassium 3.1 L Chloride 76.3 L 79.7 L Carbon Dioxide BUN 4 L 3 L Creatinine 0.5 L 0.4 L Glucose Calcium 8.1 L 8.3 L Ammonia 23.0 L Total Creatine Kinase Total Protein Albumin Urine WBC (Auto) 06/04/18 06/04/18 06/04/18 04:39 09:47 09:47 WBC MCV 95 H MCH 33 H MCHC RDW 12.8 L Plt Count Seg Neuts % (Manual) 92.0 H Lymphocytes % (Manual) 5.0 L Lymphocytes # (Manual) 0.3 L Sodium 123 L Potassium Chloride 85.2 L Carbon Dioxide BUN 5 L Creatinine 0.5 L Glucose 129 H Calcium 8.3 L Ammonia Total Creatine Kinase Total Protein 5.5 L Albumin 3.1 L Urine WBC (Auto) 06/05/18 06/06/18 06/07/18 04:29 05:25 07:11 WBC MCV MCH MCHC RDW Plt Count Seg Neuts % (Manual) Lymphocytes % (Manual) Lymphocytes # (Manual) Sodium 126 L 133 L D 126 L D Potassium Chloride 90.4 L 95.1 L 86.1 L Carbon Dioxide BUN 8 L Creatinine 0.5 L 0.5 L 0.5 L Glucose 170 H 123 H 129 H Calcium 8.2 L 8.1 L Ammonia Total Creatine Kinase Total Protein Albumin Urine WBC (Auto) 06/08/18 06/09/18 06/10/18 11:03 06:13 07:14 WBC MCV MCH MCHC RDW Plt Count Seg Neuts % (Manual) Lymphocytes % (Manual) Lymphocytes # (Manual) Sodium 134 L D Potassium Chloride 92.2 L Carbon Dioxide 31 H BUN Creatinine 0.5 L 0.6 L 0.5 L Glucose 106 H 130 H 126 H Calcium Ammonia Total Creatine Kinase Total Protein Albumin Urine WBC (Auto) 06/11/18 06/12/18 06/13/18 10:23 04:58 05:33 WBC MCV MCH MCHC RDW Plt Count Seg Neuts % (Manual) Lymphocytes % (Manual) Lymphocytes # (Manual) Sodium 136 L 134 L Potassium 3.5 L Chloride Carbon Dioxide BUN 27 H Creatinine 0.4 L 0.5 L 0.6 L Glucose 155 H 141 H 112 H Calcium 8.1 L 7.9 L 8.3 L Ammonia Total Creatine Kinase Total Protein Albumin Urine WBC (Auto) 06/13/18 06/14/18 06/14/18 05:33 05:14 05:14 WBC 12.6 H 12.3 H MCV 97 H 98 H MCH 33 H MCHC RDW Plt Count 133 L Seg Neuts % (Manual) Lymphocytes % (Manual) Lymphocytes # (Manual) Sodium 146 H Potassium Chloride 107.2 H Carbon Dioxide BUN 31 H Creatinine 0.6 L Glucose 113 H Calcium Ammonia Total Creatine Kinase Total Protein Albumin Urine WBC (Auto) Chest x-ray: image reviewed (no focal infiltrate; large gastric bubble vs dilated transverse colon) Allied health notes reviewed: nursing
--- NOTE | 2018-06-14 13:05 | Progress Note ---
Assessment and Plan Impression: * Symptomatic hyponatremia --UOsm 203, Felix 20 --TSH wnl * Encephalopathy secondary to ETOH withdrawal vs other * COPD exacerbation * Urinary tract infection * Hypertension * Alcohol abuse Plan: * SNa now 146 - will stop NaCl tablets * Encourage po hydration * Strict I/O * Empiric abx per primary * AM labs * Will follow peripherally * Case/findings discussed with Dr. Hughes Subjective Date of service: 06/14/18 Principal diagnosis: hyponatremia Interval history: 24h events reviewed Objective - Vital Signs Vital signs: Vital Signs - 12hr 06/14/18 06/14/18 06/14/18 02:00 02:54 08:00 Temperature 98.2 F 97.7 F Pulse Rate 74 21 L Respiratory 20 21 Rate Blood Pressure Blood Pressure 170/87 158/83 [Left] O2 Sat by Pulse 94 99 Oximetry 06/14/18 06/14/18 08:01 10:00 Temperature 97.7 F Pulse Rate 86 Respiratory 21 Rate Blood Pressure 158/83 Blood Pressure [Left] O2 Sat by Pulse Oximetry - General Appearance General appearance: other (diaphoretic) EENT: ATNC Respiratory: Present: Clear to Ascultation Cardiology: regular, S1S2 Integumentary: no rash Neurologic: other (somnolent; does not respond to vebal stimuli) Musculoskeletal: other (no edema) Psychiatric: cooperative - Lab 06/14/18 05:14 06/14/18 05:14 Most recent lab results Calcium 8.4 mg/dL (8.4-10.2) 06/14/18 05:14 Phosphorus 3.90 mg/dL (2.5-4.5) 06/04/18 09:47 Magnesium 1.80 mg/dL (1.7-2.3) 06/04/18 09:47 Urine Sodium 20 mmol/L 06/02/18 22:02 Medications & Allergies - Medications Allergies/Adverse Reactions: Allergies diphenhydramine HCl [From Benadryl] Allergy (Verified 09/24/14 11:56) Unknown HALLUCINATIONS Home Medications: Home Medications Medication Instructions Recorded Confirmed Last Taken Type Albuterol *Only Ed* [Proventil 2.5 mg IH Q4HRT PRN #1 nebu 10/03/14 06/03/18 Unknown Rx 0.5% NEBS] Folic Acid [Folvite] 1 mg PO QDAY #30 tablet 10/03/14 06/03/18 Unknown Rx Furosemide [Lasix TAB] 20 mg PO QDAY #30 tablet 10/03/14 06/03/18 Unknown Rx Metoprolol [Lopressor TAB] 12.5 mg PO BID #60 tablet 10/03/14 06/03/18 Unknown Rx Multivitamins Liq [Multiple 5 ml PO QDAY 30 Days oral.liqd 10/03/14 06/03/18 Unknown Rx Vitamin Liq (Theragran)] Thiamine [Vitamin B-1] 100 mg PO QDAY #30 tablet 10/03/14 06/03/18 Unknown Rx Active Medications: Generic Name Dose Route Start Last Admin Trade Name Freq PRN Reason Stop Dose Admin Acetaminophen 650 mg 06/03/18 00:05 06/13/18 03:03 Tylenol PO 650 mg Q4H PRN Administration Pain MILD(1-3)/Fever >100.5/CHANCE Albuterol 2.5 mg 06/03/18 13:11 06/03/18 15:01 Proventil IH 2.5 mg Q4HRT PRN Administration Shortness Of Breath Albuterol/Ipratropium 1 ampul 06/05/18 20:00 06/14/18 09:50 Duoneb *Not For Prn Use* IH 1 ampul TIDRT CINDA Administration Arformoterol Tartrate 15 mcg 06/03/18 20:00 06/14/18 09:50 Brovana Nebu IH 15 mcg Q12HRT CINDA Administration Budesonide 0.5 mg 06/03/18 20:00 06/14/18 09:50 Pulmicort IH 0.5 mg Q12HRT CINDA Administration Clonidine HCl 0.1 mg 06/11/18 22:00 06/14/18 00:12 Catapres PO 0.1 mg HS CINDA Administration Enoxaparin Sodium 40 mg 06/03/18 10:00 06/14/18 10:02 Lovenox SUB-Q 40 mg QDAY@1000 CINDA Administration Folic Acid 1 mg 06/04/18 10:00 06/14/18 10:04 Folvite PO Not Given QDAY CINDA Haloperidol Lactate 5 mg 06/09/18 09:51 06/10/18 08:36 Haldol IM 5 mg Q6H PRN Administration Acute Psychosis Hydralazine HCl 10 mg 06/06/18 12:10 06/09/18 14:26 Apresoline IV 10 mg Q4H PRN Administration BP >160/100 Ceftriaxone Sodium 1 gm in 50 mls @ 100 mls/hr 06/13/18 12:00 06/14/18 10:02 Rocephin/Ns 1 Gm/50 Ml IV 100 mls/hr Q24HR CINDA Administration Protocol Dextrose/Sodium Chloride 1,000 mls @ 75 mls/hr 06/14/18 14:00 D5ns 0.2% IV DIRECT CINDA Lorazepam 2 mg 06/03/18 14:00 Ativan PO Q1H PRN CIWA-Ar 8-15 Lorazepam 4 mg 06/03/18 14:00 06/10/18 17:15 Ativan IV 2 mg Q1H PRN Administration CIWA-Ar 16-25 Lorazepam 4 mg 06/03/18 14:00 Ativan IV Q15MIN PRN CIWA-Ar >25 Melatonin 5 mg 06/07/18 19:41 06/10/18 23:30 Melatonin PO 5 mg QHS PRN Administration Sleep Methylprednisolone Sodium Succinate 40 mg 06/14/18 14:00 Solu-Medrol IV Q12H [facility] Metoprolol Tartrate 50 mg 06/11/18 10:00 06/14/18 10:04 Lopressor PO Not Given BID [facility] Mirtazapine 15 mg 06/10/18 22:00 06/14/18 00:12 Remeron PO 15 mg QHS [facility] Administration Multivitamins 5 ml 06/04/18 10:00 06/14/18 10:04 Centrum Liq PO Not Given QDAY [facility] Ondansetron HCl 4 mg 06/03/18 00:05 Zofran IV Q8H PRN Nausea And Vomiting Pantoprazole Sodium 40 mg 06/06/18 10:00 06/14/18 10:05 Protonix PO Not Given DAILY CINDA Sodium Chloride 10 ml 06/03/18 10:00 06/14/18 10:02 Sodium Chloride Flush Syringe 10 Ml IV 10 ml BID CINDA Administration Sodium Chloride 10 ml 06/03/18 00:05 Sodium Chloride Flush Syringe 10 Ml IV PRN PRN LINE FLUSH Sodium Chloride 1 gm 06/13/18 17:01 06/14/18 10:03 Sodium Chloride PO Not Given TID [facility] Tamsulosin HCl 0.4 mg 06/03/18 12:00 06/14/18 10:04 Flomax PO Not Given QDAY [facility] Thiamine HCl 100 mg 06/04/18 10:00 06/14/18 10:05 Vitamin B-1 PO Not Given QDAY [facility]DA
[2018-06-14] MEDS: D5NS 0.2% 1,000 ML IV SCH (14:48)
--- NOTE | 2018-06-14 15:02 | Progress Note ---
Assessment and Plan Assessment and plan: Patient is a 72-year-old man with history of alcoholism and likely dementia which has not been diagnosed but suspected by family who presented to [facility] with AMS. It appears his recently and his health has been declining every since with increase alcohol consumption. The patient was found to have a very low sodium, agitated and confused. * CT head no acute findings * Chest x-ray no acute findings -Acute metabolic encephalopathy, suspect ETOH related but no serum etoh level or UDS upon admission: continue to treat with CIWA protocol for alcohol withdrawal -Alcohol dependence and withdrawal -Hyponatremia: Continue saline IV fluid, salt tabs -Hypokalemia, k was replaced, monitor levels -UTI suspected, and ruled out via neg urine cx -Afib with RVR, PAF with hypercoaguable state: Cardiology managed -Beer potomania; counseling done -Acute hypoxic respiratory failure with COPD exacerbation -Tobacco abuse, current every day smoker: counseling done -Dementia: mental health to see -Severe malnutrition, poa -Low grade temp last night 100.5F 06/12/18: get blood culture, and cxr Restraints renewed, still confused History Interval history: Patient was seen and examined. Follow-up on current diagnosis of AMS, still present. Overnight uneventful. Imaging, nursing note, chart, labs and old chart reviewed. Discussed with patient. Hospitalist Physical - Physical exam Narrative exam: Gen: thin frail, chronically disable appearing, NAD, Awake, Alert, Orientated x1 HEENT: NCAT, EOMI, PERRL, OP Clear Neck: supple, no adenopathy, no thyromegaly, no JVD CVS/Heart: irregular irregular, normal S1S2, pulses present bilaterally Chest/Lungs: CTA B, Symmetrical chest expansion, good air entry bilaterally GI/Abdomen: soft, NTND, good bowel sounds, no guarding or rebound /Bladder: no suprapubic tenderness, no CVA or paraspinal tenderness Extermity/Skin: no c/c/e, no obvious rash MSK: FROM x 4 Neuro: CN 2-12 grossly intact, no new focal deficits Psych: confused - Constitutional Vitals: Temp Pulse Resp BP Pulse Ox 99.3 F 105 H 17 155/81 94 06/14/18 14:41 06/14/18 14:37 06/14/18 14:37 06/14/18 14:47 06/14/18 14:37 General appearance: Present: no acute distress Results - Labs CBC & Chem 7: 06/14/18 05:14 06/14/18 05:14 Labs: Laboratory Last Values WBC 12.3 K/mm3 (4.5-11.0) H 06/14/18 05:14 RBC 3.88 M/mm3 (3.65-5.03) 06/14/18 05:14 Hgb 12.5 gm/dl (11.8-15.2) 06/14/18 05:14 Hct 38.2 % (35.5-45.6) 06/14/18 05:14 MCV 98 fl (84-94) H 06/14/18 05:14 MCH 32 pg (28-32) 06/14/18 05:14 MCHC 33 % (32-34) 06/14/18 05:14 RDW 13.7 % (13.2-15.2) 06/14/18 05:14 Plt Count 133 K/mm3 (140-440) L 06/14/18 05:14 Howard % (Auto) Cultural Anthropology Professor 06/02/18 21:25 Add Manual Diff Complete 06/04/18 09:47 Total Counted 100 06/04/18 09:47 Seg Neuts % (Manual) 92.0 % (40.0-70.0) H 06/04/18 09:47 Band Neutrophils % 0 % 06/04/18 09:47 Lymphocytes % (Manual) 5.0 % (13.4-35.0) L 06/04/18 09:47 Reactive Lymphs % (Man) 0 % 06/04/18 09:47 Monocytes % (Manual) 3.0 % (0.0-7.3) 06/04/18 09:47 Eosinophils % (Manual) 0 % (0.0-4.3) 06/04/18 09:47 Basophils % (Manual) 0 % (0.0-1.8) 06/04/18 09:47 Metamyelocytes % 0 % 06/04/18 09:47 Myelocytes % 0 % 06/04/18 09:47 Promyelocytes % 0 % 06/04/18 09:47 Blast Cells % 0 % 06/04/18 09:47 Nucleated RBC % Not Reportable 06/04/18 09:47 Seg Neutrophils # Man 4.9 K/mm3 (1.8-7.7) 06/04/18 09:47 Band Neutrophils # 0.0 K/mm3 06/04/18 09:47 Lymphocytes # (Manual) 0.3 K/mm3 (1.2-5.4) L 06/04/18 09:47 Abs React Lymphs (Man) 0.0 K/mm3 06/04/18 09:47 Monocytes # (Manual) 0.2 K/mm3 (0.0-0.8) 06/04/18 09:47 Eosinophils # (Manual) 0.0 K/mm3 (0.0-0.4) 06/04/18 09:47 Basophils # (Manual) 0.0 K/mm3 (0.0-0.1) 06/04/18 09:47 Metamyelocytes # 0.0 K/mm3 06/04/18 09:47 Myelocytes # 0.0 K/mm3 06/04/18 09:47 Promyelocytes # 0.0 K/mm3 06/04/18 09:47 Blast Cells # 0.0 K/mm3 06/04/18 09:47 WBC Morphology Not Reportable 06/04/18 09:47 Hypersegmented Neuts Not Reportable 06/04/18 09:47 Hyposegmented Neuts Not Reportable 06/04/18 09:47 Hypogranular Neuts Not Reportable 06/04/18 09:47 Smudge Cells Not Reportable 06/04/18 09:47 Toxic Granulation 1+ 06/04/18 09:47 Toxic Vacuolation Not Reportable 06/04/18 09:47 Dohle Bodies Not Reportable 06/04/18 09:47 Pelger-Huet Anomaly Not Reportable 06/04/18 09:47 Dashawn Rods Not Reportable 06/04/18 09:47 Platelet Estimate Consistent w auto 06/04/18 09:47 Clumped Platelets Not Reportable 06/04/18 09:47 Plt Clumps, EDTA Not Reportable 06/04/18 09:47 Large Platelets Not Reportable 06/04/18 09:47 Giant Platelets Not Reportable 06/04/18 09:47 Platelet Satelliting Not Reportable 06/04/18 09:47 Plt Morphology Comment Not Reportable 06/04/18 09:47 RBC Morphology Normal 06/04/18 09:47 Dimorphic RBCs Not Reportable 06/04/18 09:47 Polychromasia Not Reportable 06/04/18 09:47 Hypochromasia Not Reportable 06/04/18 09:47 Poikilocytosis Not Reportable 06/04/18 09:47 Anisocytosis Not Reportable 06/04/18 09:47 Microcytosis Not Reportable 06/04/18 09:47 Macrocytosis Not Reportable 06/04/18 09:47 Spherocytes Not Reportable 06/04/18 09:47 Pappenheimer Bodies Not Reportable 06/04/18 09:47 Sickle Cells Not Reportable 06/04/18 09:47 Target Cells Not Reportable 06/04/18 09:47 Tear Drop Cells Not Reportable 06/04/18 09:47 Ovalocytes Not Reportable 06/04/18 09:47 Helmet Cells Not Reportable 06/04/18 09:47 [place] Bodies Not Reportable 06/04/18 09:47 [place] Rings Not Reportable 06/04/18 09:47 Mic Cells Not Reportable 06/04/18 09:47 Bite Cells Not Reportable 06/04/18 09:47 Crenated Cell Not Reportable 06/04/18 09:47 Elliptocytes Not Reportable 06/04/18 09:47 Acanthocytes (Spur) Not Reportable 06/04/18 09:47 Rouleaux Not Reportable 06/04/18 09:47 Hemoglobin C Crystals Not Reportable 06/04/18 09:47 Schistocytes Not Reportable 06/04/18 09:47 Malaria parasites Not Reportable 06/04/18 09:47 Rajesh Bodies Not Reportable 06/04/18 09:47 Hem Pathologist Commnt No 06/04/18 09:47 Sodium 146 mmol/L (137-145) H 06/14/18 05:14 Potassium 3.9 mmol/L (3.6-5.0) 06/14/18 05:14 Chloride 107.2 mmol/L (98-107) H 06/14/18 05:14 Carbon Dioxide 27 mmol/L (22-30) 06/14/18 05:14 Anion Gap 16 mmol/L 06/14/18 05:14 BUN 31 mg/dL (9-20) H 06/14/18 05:14 Creatinine 0.6 mg/dL (0.8-1.5) L 06/14/18 05:14 Estimated GFR > 60 ml/min 06/14/18 05:14 BUN/Creatinine Ratio 52 % 06/14/18 05:14 Glucose 113 mg/dL (75-100) H 06/14/18 05:14 POC Glucose 93 (70-105) 06/02/18 21:18 Osmolality 249 Mosm/kg 06/03/18 20:45 Calcium 8.4 mg/dL (8.4-10.2) 06/14/18 05:14 Phosphorus 3.90 mg/dL (2.5-4.5) 06/04/18 09:47 Magnesium 1.80 mg/dL (1.7-2.3) 06/04/18 09:47 Total Bilirubin 0.40 mg/dL (0.1-1.2) 06/04/18 04:39 Direct Bilirubin < 0.2 mg/dL (0-0.2) 06/04/18 04:39 Indirect Bilirubin 0.2 mg/dL 06/04/18 04:39 AST 31 units/L (5-40) 06/04/18 04:39 ALT 26 units/L (7-56) 06/04/18 04:39 Alkaline Phosphatase 66 units/L (35-129) 06/04/18 04:39 Ammonia 23.0 umol/L (25-60) L 06/03/18 14:41 Total Creatine Kinase 420 units/L (55-170) H 06/02/18 21:25 Troponin T < 0.010 ng/mL (0.00-0.029) 06/02/18 21:25 NT-Pro-B Natriuret Pep 379.8 pg/mL (0-900) 06/02/18 21:25 Total Protein 5.5 g/dL (6.3-8.2) L 06/04/18 04:39 Albumin 3.1 g/dL (3.9-5) L 06/04/18 04:39 Albumin/Globulin Ratio 1.3 % 06/04/18 04:39 TSH 1.100 mlU/mL (0.270-4.200) 06/03/18 20:45 Urine Color Yellow (Yellow) 06/02/18 22:03 Urine Turbidity Slightly-cloudy (Clear) 06/02/18 22:03 Urine pH 6.0 (5.0-7.0) 06/02/18 22:03 Ur Specific [place] 1.004 (1.003-1.030) 06/02/18 22:03 Urine Protein <15 mg/dl mg/dL (Negative) 06/02/18 22:03 Urine Glucose (UA) Neg mg/dL (Negative) 06/02/18 22:03 Urine Ketones Neg mg/dL (Negative) 06/02/18 22:03 Urine Blood Sm (Negative) 06/02/18 22:03 Urine Nitrite Neg (Negative) 06/02/18 22:03 Urine Bilirubin Neg (Negative) 06/02/18 22:03 Urine Urobilinogen 2.0 mg/dL (<2.0) 06/02/18 22:03 Ur Leukocyte Esterase Lg (Negative) 06/02/18 22:03 Urine WBC (Auto) 24.0 /HPF (0.0-6.0) H 06/02/18 22:03 Urine RBC (Auto) 3.0 /HPF (0.0-6.0) 06/02/18 22:03 U Epithel Cells (Auto) < 1.0 /HPF (0-13.0) 06/02/18 22:03 Urine Bacteria (Auto) 1+ /HPF (Negative) 06/02/18 22:03 Urine Osmolality 203 Mosm/kg 06/02/18 22:02 Urine Sodium 20 mmol/L 06/02/18 22:02 Active Medications - Current Medications Current Medications: Generic Name Dose Route Start Last Admin Trade Name Freq PRN Reason Stop Dose Admin Acetaminophen 650 mg 06/03/18 00:05 06/13/18 03:03 Tylenol PO 650 mg Q4H PRN Administration Pain MILD(1-3)/Fever >100.5/CHANCE Albuterol 2.5 mg 06/03/18 13:11 06/03/18 15:01 Proventil IH 2.5 mg Q4HRT PRN Administration Shortness Of Breath Albuterol/Ipratropium 1 ampul 06/05/18 20:00 06/14/18 14:55 Duoneb *Not For Prn Use* IH 1 ampul TIDRT CINDA Administration Arformoterol Tartrate 15 mcg 06/03/18 20:00 06/14/18 09:50 Brovana Nebu IH 15 mcg Q12HRT CINDA Administration Budesonide 0.5 mg 06/03/18 20:00 06/14/18 09:50 Pulmicort IH 0.5 mg Q12HRT CINDA Administration Clonidine HCl 0.1 mg 06/11/18 22:00 06/14/18 00:12 Catapres PO 0.1 mg HS CINDA Administration Enoxaparin Sodium 40 mg 06/03/18 10:00 06/14/18 10:02 Lovenox SUB-Q 40 mg QDAY@1000 CINDA Administration Folic Acid 1 mg 06/04/18 10:00 06/14/18 10:04 Folvite PO Not Given QDAY CINDA Haloperidol Lactate 5 mg 06/09/18 09:51 06/10/18 08:36 Haldol IM 5 mg Q6H PRN Administration Acute Psychosis Hydralazine HCl 10 mg 06/06/18 12:10 06/09/18 14:26 Apresoline IV 10 mg Q4H PRN Administration BP >160/100 Ceftriaxone Sodium 1 gm in 50 mls @ 100 mls/hr 06/13/18 12:00 06/14/18 10:02 Rocephin/Ns 1 Gm/50 Ml IV 100 mls/hr Q24HR CINDA Administration Protocol Dextrose/Sodium Chloride 1,000 mls @ 75 mls/hr 06/14/18 14:00 06/14/18 14:48 D5ns 0.2% IV 75 mls/hr DIRECT CINDA Administration Lorazepam 2 mg 06/03/18 14:00 Ativan PO Q1H PRN CIWA-Ar 8-15 Lorazepam 4 mg 06/03/18 14:00 06/10/18 17:15 Ativan IV 2 mg Q1H PRN Administration CIWA-Ar 16-25 Lorazepam 4 mg 06/03/18 14:00 Ativan IV Q15MIN PRN CIWA-Ar >25 Melatonin 5 mg 06/07/18 19:41 06/10/18 23:30 Melatonin PO 5 mg QHS PRN Administration Sleep Methylprednisolone Sodium Succinate 40 mg 06/14/18 14:00 06/14/18 14:48 Solu-Medrol IV 40 mg Q12H CINDA Administration Metoprolol Tartrate 50 mg 06/11/18 10:00 06/14/18 10:04 Lopressor PO Not Given BID [facility] Mirtazapine 15 mg 06/10/18 22:00 06/14/18 00:12 Remeron PO 15 mg QHS CINDA Administration Multivitamins 5 ml 06/04/18 10:00 06/14/18 10:04 Centrum Liq PO Not Given QDAY [facility] Ondansetron HCl 4 mg 06/03/18 00:05 Zofran IV Q8H PRN Nausea And Vomiting Pantoprazole Sodium 40 mg 06/06/18 10:00 06/14/18 10:05 Protonix PO Not Given DAILY [facility] Sodium Chloride 10 ml 06/03/18 10:00 06/14/18 10:02 Sodium Chloride Flush Syringe 10 Ml IV 10 ml BID CINDA Administration Sodium Chloride 10 ml 06/03/18 00:05 Sodium Chloride Flush Syringe 10 Ml IV PRN PRN LINE FLUSH Tamsulosin HCl 0.4 mg 06/03/18 12:00 06/14/18 10:04 Flomax PO Not Given QDAY [facility] Thiamine HCl 100 mg 06/04/18 10:00 06/14/18 10:05 Vitamin B-1 PO Not Given QDAY [facility] Nutrition/Malnutrition Assess - Dietary Evaluation Nutrition/Malnutrition Findings: Nutrition Notes Start: 06/09/18 14:29 Freq: Status: Active Protocol: Document 06/13/18 15:08 RM (Rec: 06/13/18 15:13 RM [id number]) Nutrition Notes Initial or Follow up Reassessment Current Diagnosis COPD,Hypertension,Heart Failure Other Pertinent Diagnosis Alcoholic Hx, AMS, UTI, Dementia, Metabolic encephalopathy Current Diet NPO (pending ST evaluation) Labs/Tests Reviewed Pertinent Medications Solu-Medrol Height 5 ft 10 in Weight 61.3 kg [place] Body Weight (kg) 75.45 BMI 19.3 Subjective/Other Information Per nurse pt has been eating bites of food and making wet noises afterwards. Stated she ordered a swallow evaluation and pt will be NPO until then. Burn Absent Trauma Absent #1 Nutrition Diagnosis Inadequate oral intake Diagnosis Progress(for reassessment Continues documentation) Is patient on ventilator? No Is Patient Ambulatory and/or Out of Bed No REE-([facility]-confined to bed) 1643.376 Kcal/Kg value to use for calculation 32 Approximate Energy Requirements Using 1962 kcal/Kg Calculation Used for Recommendations Kcal/kg Additional Notes Protein Needs: 61-73g (1-1.2g/ kg) Fluid Needs: 1 ml/kcal Nutrition Intervention Change Diet Order: Per ST Goal #1 Swallow evaluation Anticipated Discharge Needs: Unable to determine at this time Follow-Up By: 06/17/18 Additional Comments Follow for ST evaluation results, PO intakes
[2018-06-15] MEDS: SOLU-Medrol IV SCH (02:20)
[2018-06-15] MEDS: D5NS 0.2% 1,000 ML IV SCH ×2 (03:32→17:37)
[2018-06-15 05:56] LABS: Hematocrit 38.8 % (35.5-45.6); Hemoglobin 12.7 gm/dl (11.8-15.2); Mean Corpuscular HGB Conc 33 % (32-34); Mean Corpuscular Volume 97 fl (84-94); Platelet Count 138 K/mm3 (140-440); Red Blood Count 3.99 M/mm3 (3.65-5.03); Red Cell Distribution Width 13.7 % (13.2-15.2)
[2018-06-15 06:07] LABS: BUN/Creatinine Ratio 53; Blood Urea Nitrogen 32 mg/dL (9-20); Calcium 7.8 mg/dL (8.4-10.2); Hemolysis Index 10
[2018-06-15] MEDS: DUONEB *Not for PRN Use IH SCH ×3 (08:53→20:08)
[2018-06-15] MEDS: BROVANA NEBU IH SCH ×2 (08:53→20:07)
[2018-06-15] MEDS: PULMICORT IH SCH ×2 (08:53→20:07)
[2018-06-15] MEDS: ROCEPHIN/NS 1 GM/50 ML 1 GM/50 ML BAG IV SCH (10:06)
[2018-06-15] MEDS: LOVENOX SUB-Q SCH (10:06)
[2018-06-15] MEDS: LOPRESSOR PO SCH ×2 (10:07→22:20)
[2018-06-15] MEDS: SODIUM CHLORIDE FLUSH SYRINGE 10 ML IV SCH ×2 (10:07→22:21)
[2018-06-15] MEDS: FOLVITE PO SCH (10:15)
[2018-06-15] MEDS: Centrum Liq PO SCH (10:15)
[2018-06-15] MEDS: PROTONIX PO SCH (10:15)
[2018-06-15] MEDS: VITAMIN B-1 PO SCH (10:15)
[2018-06-15] MEDS: FLOMAX PO SCH (10:15)
--- NOTE | 2018-06-15 12:25 | Progress Note ---
Assessment and Plan Assessment and plan: Patient is a 72-year-old man with history of alcoholism and likely dementia which has not been diagnosed but suspected by family who presented to [facility] with AMS. It appears his recently and his health has been declining every since with increase alcohol consumption. The patient was found to have a very low sodium, agitated and confused. * CT head no acute findings * Chest x-ray no acute findings -Acute metabolic encephalopathy, suspect ETOH related but no serum etoh level or UDS upon admission: continue to treat with CIWA protocol for alcohol withdrawal -Alcohol dependence and withdrawal: CIWA protocol -Hyponatremia: Continue saline IV fluid, salt tabs -Hypokalemia, k was replaced, monitor levels -UTI suspected, and ruled out via neg urine cx -Afib with RVR, PAF with hypercoaguable state: Cardiology managed -Beer potomania; counseling done -Acute hypoxic respiratory failure with COPD exacerbation: pulmonology is following, still on iv solumedrol with increase WBC -Tobacco abuse, current every day smoker: counseling done -Dementia: mental health Following -Severe malnutrition, poa -Low grade temp last night 100.5F 06/12/18: get blood culture, and cxr Restraints not, still confused 06/15/2018: d/w son Cachorro Garcia @ [phone] and his ex Xenia who is a RN. Updated give, plan Consult Neurology, repeat UA, we did speak about possible PEG tube History Interval history: Patient was seen and examined. Follow-up on current diagnosis of AMS, still present. Overnight uneventful. Imaging, nursing note, chart, labs and old chart reviewed. Discussed with patient. Hospitalist Physical - Physical exam Narrative exam: Gen: thin frail, chronically disable appearing, NAD, Awake, Alert, Orientated x1 HEENT: NCAT, EOMI, PERRL, OP Clear Neck: supple, no adenopathy, no thyromegaly, no JVD CVS/Heart: irregular irregular, normal S1S2, pulses present bilaterally Chest/Lungs: CTA B, Symmetrical chest expansion, good air entry bilaterally GI/Abdomen: soft, NTND, good bowel sounds, no guarding or rebound /Bladder: no suprapubic tenderness, no CVA or paraspinal tenderness Extermity/Skin: no c/c/e, no obvious rash MSK: FROM x 4 Neuro: CN 2-12 grossly intact, no new focal deficits Psych: confused - Constitutional Vitals: Temp Pulse Resp BP Pulse Ox 98.0 F 85 18 139/85 100 06/15/18 07:46 06/15/18 10:07 06/15/18 07:46 06/15/18 10:07 06/15/18 07:46 General appearance: Present: no acute distress Results - Labs CBC & Chem 7: 06/15/18 04:47 06/15/18 04:47 Labs: Laboratory Last Values WBC 16.7 K/mm3 (4.5-11.0) H 06/15/18 04:47 RBC 3.99 M/mm3 (3.65-5.03) 06/15/18 04:47 Hgb 12.7 gm/dl (11.8-15.2) 06/15/18 04:47 Hct 38.8 % (35.5-45.6) 06/15/18 04:47 MCV 97 fl (84-94) H 06/15/18 04:47 MCH 32 pg (28-32) 06/15/18 04:47 MCHC 33 % (32-34) 06/15/18 04:47 RDW 13.7 % (13.2-15.2) 06/15/18 04:47 Plt Count 138 K/mm3 (140-440) L 06/15/18 04:47 [place] % (Auto) Insurance Customer Service Specialist 06/02/18 21:25 Add Manual Diff Complete 06/04/18 09:47 Total Counted 100 06/04/18 09:47 Seg Neuts % (Manual) 92.0 % (40.0-70.0) H 06/04/18 09:47 Band Neutrophils % 0 % 06/04/18 09:47 Lymphocytes % (Manual) 5.0 % (13.4-35.0) L 06/04/18 09:47 Reactive Lymphs % (Man) 0 % 06/04/18 09:47 Monocytes % (Manual) 3.0 % (0.0-7.3) 06/04/18 09:47 Eosinophils % (Manual) 0 % (0.0-4.3) 06/04/18 09:47 Basophils % (Manual) 0 % (0.0-1.8) 06/04/18 09:47 Metamyelocytes % 0 % 06/04/18 09:47 Myelocytes % 0 % 06/04/18 09:47 Promyelocytes % 0 % 06/04/18 09:47 Blast Cells % 0 % 06/04/18 09:47 Nucleated RBC % Not Reportable 06/04/18 09:47 Seg Neutrophils # Man 4.9 K/mm3 (1.8-7.7) 06/04/18 09:47 Band Neutrophils # 0.0 K/mm3 06/04/18 09:47 Lymphocytes # (Manual) 0.3 K/mm3 (1.2-5.4) L 06/04/18 09:47 Abs React Lymphs (Man) 0.0 K/mm3 06/04/18 09:47 Monocytes # (Manual) 0.2 K/mm3 (0.0-0.8) 06/04/18 09:47 Eosinophils # (Manual) 0.0 K/mm3 (0.0-0.4) 06/04/18 09:47 Basophils # (Manual) 0.0 K/mm3 (0.0-0.1) 06/04/18 09:47 Metamyelocytes # 0.0 K/mm3 06/04/18 09:47 Myelocytes # 0.0 K/mm3 06/04/18 09:47 Promyelocytes # 0.0 K/mm3 06/04/18 09:47 Blast Cells # 0.0 K/mm3 06/04/18 09:47 WBC Morphology Not Reportable 06/04/18 09:47 Hypersegmented Neuts Not Reportable 06/04/18 09:47 Hyposegmented Neuts Not Reportable 06/04/18 09:47 Hypogranular Neuts Not Reportable 06/04/18 09:47 Smudge Cells Not Reportable 06/04/18 09:47 Toxic Granulation 1+ 06/04/18 09:47 Toxic Vacuolation Not Reportable 06/04/18 09:47 Dohle Bodies Not Reportable 06/04/18 09:47 Pelger-Huet Anomaly Not Reportable 06/04/18 09:47 [place] Rods Not Reportable 06/04/18 09:47 Platelet Estimate Consistent w auto 06/04/18 09:47 Clumped Platelets Not Reportable 06/04/18 09:47 Plt Clumps, EDTA Not Reportable 06/04/18 09:47 Large Platelets Not Reportable 06/04/18 09:47 Giant Platelets Not Reportable 06/04/18 09:47 Platelet Satelliting Not Reportable 06/04/18 09:47 Plt Morphology Comment Not Reportable 06/04/18 09:47 RBC Morphology Normal 06/04/18 09:47 Dimorphic RBCs Not Reportable 06/04/18 09:47 Polychromasia Not Reportable 06/04/18 09:47 Hypochromasia Not Reportable 06/04/18 09:47 Poikilocytosis Not Reportable 06/04/18 09:47 Anisocytosis Not Reportable 06/04/18 09:47 Microcytosis Not Reportable 06/04/18 09:47 Macrocytosis Not Reportable 06/04/18 09:47 Spherocytes Not Reportable 06/04/18 09:47 Pappenheimer Bodies Not Reportable 06/04/18 09:47 Sickle Cells Not Reportable 06/04/18 09:47 Target Cells Not Reportable 06/04/18 09:47 Tear Drop Cells Not Reportable 06/04/18 09:47 Ovalocytes Not Reportable 06/04/18 09:47 Helmet Cells Not Reportable 06/04/18 09:47 [place] Bodies Not Reportable 06/04/18 09:47 [place] Rings Not Reportable 06/04/18 09:47 [place] Cells Not Reportable 06/04/18 09:47 Bite Cells Not Reportable 06/04/18 09:47 Crenated Cell Not Reportable 06/04/18 09:47 Elliptocytes Not Reportable 06/04/18 09:47 Acanthocytes (Spur) Not Reportable 06/04/18 09:47 Rouleaux Not Reportable 06/04/18 09:47 Hemoglobin C Crystals Not Reportable 06/04/18 09:47 Schistocytes Not Reportable 06/04/18 09:47 Malaria parasites Not Reportable 06/04/18 09:47 Rajesh Bodies Not Reportable 06/04/18 09:47 Hem Pathologist Commnt No 06/04/18 09:47 Sodium 146 mmol/L (137-145) H 06/15/18 04:47 Potassium 4.7 mmol/L (3.6-5.0) D 06/15/18 04:47 Chloride 109.2 mmol/L (98-107) H 06/15/18 04:47 Carbon Dioxide 27 mmol/L (22-30) 06/15/18 04:47 Anion Gap 15 mmol/L 06/15/18 04:47 BUN 32 mg/dL (9-20) H 06/15/18 04:47 Creatinine 0.6 mg/dL (0.8-1.5) L 06/15/18 04:47 Estimated GFR > 60 ml/min 06/15/18 04:47 BUN/Creatinine Ratio 53 % 06/15/18 04:47 Glucose 124 mg/dL (75-100) H 06/15/18 04:47 POC Glucose 93 (70-105) 06/02/18 21:18 Osmolality 249 Mosm/kg 06/03/18 20:45 Calcium 7.8 mg/dL (8.4-10.2) L 06/15/18 04:47 Phosphorus 3.90 mg/dL (2.5-4.5) 06/04/18 09:47 Magnesium 1.80 mg/dL (1.7-2.3) 06/04/18 09:47 Total Bilirubin 0.40 mg/dL (0.1-1.2) 06/04/18 04:39 Direct Bilirubin < 0.2 mg/dL (0-0.2) 06/04/18 04:39 Indirect Bilirubin 0.2 mg/dL 06/04/18 04:39 AST 31 units/L (5-40) 06/04/18 04:39 ALT 26 units/L (7-56) 06/04/18 04:39 Alkaline Phosphatase 66 units/L (35-129) 06/04/18 04:39 Ammonia 23.0 umol/L (25-60) L 06/03/18 14:41 Total Creatine Kinase 420 units/L (55-170) H 06/02/18 21:25 Troponin T < 0.010 ng/mL (0.00-0.029) 06/02/18 21:25 NT-Pro-B Natriuret Pep 379.8 pg/mL (0-900) 06/02/18 21:25 Total Protein 5.5 g/dL (6.3-8.2) L 06/04/18 04:39 Albumin 3.1 g/dL (3.9-5) L 06/04/18 04:39 Albumin/Globulin Ratio 1.3 % 06/04/18 04:39 TSH 1.100 mlU/mL (0.270-4.200) 06/03/18 20:45 Urine Color Yellow (Yellow) 06/02/18 22:03 Urine Turbidity Slightly-cloudy (Clear) 06/02/18 22:03 Urine pH 6.0 (5.0-7.0) 06/02/18 22:03 Ur Specific [place] 1.004 (1.003-1.030) 06/02/18 22:03 Urine Protein <15 mg/dl mg/dL (Negative) 06/02/18 22:03 Urine Glucose (UA) Neg mg/dL (Negative) 06/02/18 22:03 Urine Ketones Neg mg/dL (Negative) 06/02/18 22:03 Urine Blood Sm (Negative) 06/02/18 22:03 Urine Nitrite Neg (Negative) 06/02/18 22:03 Urine Bilirubin Neg (Negative) 06/02/18 22:03 Urine Urobilinogen 2.0 mg/dL (<2.0) 06/02/18 22:03 Ur Leukocyte Esterase Lg (Negative) 06/02/18 22:03 Urine WBC (Auto) 24.0 /HPF (0.0-6.0) H 06/02/18 22:03 Urine RBC (Auto) 3.0 /HPF (0.0-6.0) 06/02/18 22:03 U Epithel Cells (Auto) < 1.0 /HPF (0-13.0) 06/02/18 22:03 Urine Bacteria (Auto) 1+ /HPF (Negative) 06/02/18 22:03 Urine Osmolality 203 Mosm/kg 06/02/18 22:02 Urine Sodium 20 mmol/L 06/02/18 22:02 Active Medications - Current Medications Current Medications: Generic Name Dose Route Start Last Admin Trade Name Freq PRN Reason Stop Dose Admin Acetaminophen 650 mg 06/03/18 00:05 06/13/18 03:03 Tylenol PO 650 mg Q4H PRN Administration Pain MILD(1-3)/Fever >100.5/CHANCE Albuterol 2.5 mg 06/03/18 13:11 06/03/18 15:01 Proventil IH 2.5 mg Q4HRT PRN Administration Shortness Of Breath Albuterol/Ipratropium 1 ampul 06/05/18 20:00 06/15/18 08:53 Duoneb *Not For Prn Use* IH 1 ampul TIDRT CINDA Administration Arformoterol Tartrate 15 mcg 06/03/18 20:00 06/15/18 08:53 Brovana Nebu IH 15 mcg Q12HRT CINDA Administration Budesonide 0.5 mg 06/03/18 20:00 06/15/18 08:53 Pulmicort IH 0.5 mg Q12HRT CINDA Administration Clonidine HCl 0.1 mg 06/11/18 22:00 06/14/18 22:29 Catapres PO 0.1 mg HS CINDA Administration Enoxaparin Sodium 40 mg 06/03/18 10:00 06/15/18 10:06 Lovenox SUB-Q 40 mg QDAY@1000 CINDA Administration Folic Acid 1 mg 06/04/18 10:00 06/15/18 10:15 Folvite PO Not Given QDAY CINDA Haloperidol Lactate 5 mg 06/09/18 09:51 06/10/18 08:36 Haldol IM 5 mg Q6H PRN Administration Acute Psychosis Hydralazine HCl 10 mg 06/06/18 12:10 06/09/18 14:26 Apresoline IV 10 mg Q4H PRN Administration BP >160/100 Ceftriaxone Sodium 1 gm in 50 mls @ 100 mls/hr 06/13/18 12:00 06/15/18 10:06 Rocephin/Ns 1 Gm/50 Ml IV 100 mls/hr Q24HR CINDA Administration Protocol Dextrose/Sodium Chloride 1,000 mls @ 75 mls/hr 06/14/18 14:00 06/15/18 03:32 D5ns 0.2% IV 75 mls/hr DIRECT CINDA Administration Lorazepam 2 mg 06/03/18 14:00 Ativan PO Q1H PRN CIWA-Ar 8-15 Lorazepam 4 mg 06/03/18 14:00 06/10/18 17:15 Ativan IV 2 mg Q1H PRN Administration CIWA-Ar 16-25 Lorazepam 4 mg 06/03/18 14:00 Ativan IV Q15MIN PRN CIWA-Ar >25 Melatonin 5 mg 06/07/18 19:41 06/10/18 23:30 Melatonin PO 5 mg QHS PRN Administration Sleep Methylprednisolone Sodium Succinate 40 mg 06/14/18 14:00 06/15/18 02:20 Solu-Medrol IV 40 mg Q12H CINDA Administration Metoprolol Tartrate 50 mg 06/11/18 10:00 06/15/18 10:07 Lopressor PO 50 mg BID CINDA Administration Mirtazapine 15 mg 06/10/18 22:00 06/14/18 22:31 Remeron PO 15 mg QHS CINDA Administration Multivitamins 5 ml 06/04/18 10:00 06/15/18 10:15 Centrum Liq PO Not Given QDAY [facility] Ondansetron HCl 4 mg 06/03/18 00:05 Zofran IV Q8H PRN Nausea And Vomiting Pantoprazole Sodium 40 mg 06/06/18 10:00 06/15/18 10:15 Protonix PO Not Given DAILY [facility] Sodium Chloride 10 ml 06/03/18 10:00 06/15/18 10:07 Sodium Chloride Flush Syringe 10 Ml IV 10 ml BID CINDA Administration Sodium Chloride 10 ml 06/03/18 00:05 Sodium Chloride Flush Syringe 10 Ml IV PRN PRN LINE FLUSH Tamsulosin HCl 0.4 mg 06/03/18 12:00 06/15/18 10:15 Flomax PO Not Given QDAY [facility] Thiamine HCl 100 mg 06/04/18 10:00 06/15/18 10:15 Vitamin B-1 PO Not Given QDAY [facility] Nutrition/Malnutrition Assess - Dietary Evaluation Nutrition/Malnutrition Findings: Nutrition Notes Start: 06/09/18 14:29 Freq: Status: Active Protocol: Document 06/13/18 15:08 RM (Rec: 06/13/18 15:13 RM [id number]) Nutrition Notes Initial or Follow up Reassessment Current Diagnosis COPD,Hypertension,Heart Failure Other Pertinent Diagnosis Alcoholic Hx, AMS, UTI, Dementia, Metabolic encephalopathy Current Diet NPO (pending ST evaluation) Labs/Tests Reviewed Pertinent Medications Solu-Medrol Height 5 ft 10 in Weight 61.3 kg [place] Body Weight (kg) 75.45 BMI 19.3 Subjective/Other Information Per nurse pt has been eating bites of food and making wet noises afterwards. Stated she ordered a swallow evaluation and pt will be NPO until then. Burn Absent Trauma Absent #1 Nutrition Diagnosis Inadequate oral intake Diagnosis Progress(for reassessment Continues documentation) Is patient on ventilator? No Is Patient Ambulatory and/or Out of Bed No REE-([facility]-confined to bed) 1643.376 Kcal/Kg value to use for calculation 32 Approximate Energy Requirements Using 1962 kcal/Kg Calculation Used for Recommendations Kcal/kg Additional Notes Protein Needs: 61-73g (1-1.2g/ kg) Fluid Needs: 1 ml/kcal Nutrition Intervention Change Diet Order: Per ST Goal #1 Swallow evaluation Anticipated Discharge Needs: Unable to determine at this time Follow-Up By: 06/17/18 Additional Comments Follow for ST evaluation results, PO intakes
--- NOTE | 2018-06-15 13:46 | Progress Note ---
Assessment and Plan Acute COPD exacerbation Acute Hyponatremia Acute Encephalopathy (? Wernicke's) EtOH Abuse - continue Albuterol/Atrovent aerosol treatments q6hrs - Continue solumedrol (tapered to 40mg IV daily) - continue supplemental oxygen as necessary to keep O2 sat's > 90% - continue thiamine and folic acid - Continue Lovenox - Continue Protonix - Continue empiric CAP AB's (added zithromax X 3 days) - free water restriction - continue to Watch for DTs. - aspiration and falls precautions - continue other care per attending / other consultants ... will likely need placement ... re-evaluate in am & prn Subjective Date of service: 06/15/18 Principal diagnosis: AE-COPD; Acute metabolic-toxic encephalopathy; hyponatremia Interval history: Patient is seen today for: AE-COPD; Acute metabolic-toxic encephalopathy; hyponatremia Seen and examined at bedside; 24hour events reviewed; nursing and respiratory care staff consulted; no adverse overnight events reported to me; resting in bed; still confused; still tremulous; no seizures; remains on supplemental oxygen Objective Vital Signs - 12hr 06/15/18 06/15/18 06/15/18 02:38 07:46 10:00 Temperature 97.6 F 98.0 F Pulse Rate 80 85 96 H Respiratory 20 18 Rate Blood Pressure 136/89 139/85 O2 Sat by Pulse 100 100 Oximetry 06/15/18 10:07 Temperature Pulse Rate 85 Respiratory Rate Blood Pressure 139/85 O2 Sat by Pulse Oximetry Constitutional: no acute distress, other (elderly and chronically ill looking CM with mildly increased respiratory effort at rest) Eyes: non-icteric ENT: oropharynx moist Neck: supple, no JVD, other (no thyromegaly) Effort: mildly labored Ascultation: Bilateral: diminished breath sounds, other (prolonged expiratory phase) Percussion: Bilateral: not dull Cardiovascular: regular rate and rhythm Gastrointestinal: normoactive bowel sounds, soft, non-tender, non-distended Integumentary: normal Extremities: no cyanosis, no edema, pink and warm, pulses normal Neurologic: non-focal exam (grossly), pupils equal and round, CN II-XII normal Psychiatric: other (delirious) CBC and BMP: 06/15/18 04:47 06/16/18 05:22 Abnormal lab findings: Abnormal Labs 06/02/18 06/02/18 06/02/18 21:25 21:25 22:03 WBC MCV MCH 33 H MCHC 35 H RDW 12.8 L Plt Count Seg Neuts % (Manual) 80.0 H Lymphocytes % (Manual) Lymphocytes # (Manual) 0.8 L Sodium 109 L* Potassium Chloride 71.3 L Carbon Dioxide BUN 6 L Creatinine 0.5 L Glucose Calcium Ammonia Total Creatine Kinase 420 H Total Protein Albumin Urine WBC (Auto) 24.0 H 06/03/18 06/03/18 06/03/18 00:15 06:27 09:42 WBC MCV MCH MCHC RDW Plt Count Seg Neuts % (Manual) Lymphocytes % (Manual) Lymphocytes # (Manual) Sodium 113 L* 118 L* 116 L* Potassium 3.5 L 3.5 L Chloride 77.2 L 79.1 L 78.2 L Carbon Dioxide BUN 5 L 4 L 4 L Creatinine 0.4 L 0.5 L 0.4 L Glucose Calcium 8.2 L 7.9 L 8.1 L Ammonia Total Creatine Kinase Total Protein Albumin Urine WBC (Auto) 06/03/18 06/03/18 06/03/18 14:41 14:41 20:45 WBC MCV MCH MCHC RDW Plt Count Seg Neuts % (Manual) Lymphocytes % (Manual) Lymphocytes # (Manual) Sodium 114 L* 118 L* Potassium 3.1 L Chloride 76.3 L 79.7 L Carbon Dioxide BUN 4 L 3 L Creatinine 0.5 L 0.4 L Glucose Calcium 8.1 L 8.3 L Ammonia 23.0 L Total Creatine Kinase Total Protein Albumin Urine WBC (Auto) 06/04/18 06/04/18 06/04/18 04:39 09:47 09:47 WBC MCV 95 H MCH 33 H MCHC RDW 12.8 L Plt Count Seg Neuts % (Manual) 92.0 H Lymphocytes % (Manual) 5.0 L Lymphocytes # (Manual) 0.3 L Sodium 123 L Potassium Chloride 85.2 L Carbon Dioxide BUN 5 L Creatinine 0.5 L Glucose 129 H Calcium 8.3 L Ammonia Total Creatine Kinase Total Protein 5.5 L Albumin 3.1 L Urine WBC (Auto) 06/05/18 06/06/18 06/07/18 04:29 05:25 07:11 WBC MCV MCH MCHC RDW Plt Count Seg Neuts % (Manual) Lymphocytes % (Manual) Lymphocytes # (Manual) Sodium 126 L 133 L D 126 L D Potassium Chloride 90.4 L 95.1 L 86.1 L Carbon Dioxide BUN 8 L Creatinine 0.5 L 0.5 L 0.5 L Glucose 170 H 123 H 129 H Calcium 8.2 L 8.1 L Ammonia Total Creatine Kinase Total Protein Albumin Urine WBC (Auto) 06/08/18 06/09/18 06/10/18 11:03 06:13 07:14 WBC MCV MCH MCHC RDW Plt Count Seg Neuts % (Manual) Lymphocytes % (Manual) Lymphocytes # (Manual) Sodium 134 L D Potassium Chloride 92.2 L Carbon Dioxide 31 H BUN Creatinine 0.5 L 0.6 L 0.5 L Glucose 106 H 130 H 126 H Calcium Ammonia Total Creatine Kinase Total Protein Albumin Urine WBC (Auto) 06/11/18 06/12/18 06/13/18 10:23 04:58 05:33 WBC MCV MCH MCHC RDW Plt Count Seg Neuts % (Manual) Lymphocytes % (Manual) Lymphocytes # (Manual) Sodium 136 L 134 L Potassium 3.5 L Chloride Carbon Dioxide BUN 27 H Creatinine 0.4 L 0.5 L 0.6 L Glucose 155 H 141 H 112 H Calcium 8.1 L 7.9 L 8.3 L Ammonia Total Creatine Kinase Total Protein Albumin Urine WBC (Auto) 06/13/18 06/14/18 06/14/18 05:33 05:14 05:14 WBC 12.6 H 12.3 H MCV 97 H 98 H MCH 33 H MCHC RDW Plt Count 133 L Seg Neuts % (Manual) Lymphocytes % (Manual) Lymphocytes # (Manual) Sodium 146 H Potassium Chloride 107.2 H Carbon Dioxide BUN 31 H Creatinine 0.6 L Glucose 113 H Calcium Ammonia Total Creatine Kinase Total Protein Albumin Urine WBC (Auto) 06/15/18 06/15/18 04:47 04:47 WBC 16.7 H MCV 97 H MCH MCHC RDW Plt Count 138 L Seg Neuts % (Manual) Lymphocytes % (Manual) Lymphocytes # (Manual) Sodium 146 H Potassium Chloride 109.2 H Carbon Dioxide BUN 32 H Creatinine 0.6 L Glucose 124 H Calcium 7.8 L Ammonia Total Creatine Kinase Total Protein Albumin Urine WBC (Auto) Allied health notes reviewed: nursing
[2018-06-15] MEDS: CATAPRES PO SCH (22:19)
[2018-06-15] MEDS: REMERON PO SCH (22:20)
[2018-06-16 03:49] LABS: Bacteria,Urine 1+ /HPF (Negative); Bilirubin,Urine NEG (Negative); Blood,Urine SM (Negative); Color,Urine Yellow (Yellow); Mucus,Urine FEW /HPF; Protein,Urine <15 mg/dL mg/dL (Negative); Urobilinogen,Urine < 2.0 mg/dL (<2.0)
[2018-06-16 06:33] LABS: BUN/Creatinine Ratio 49; Blood Urea Nitrogen 39 mg/dL (9-20); Calcium 7.9 mg/dL (8.4-10.2); Hemolysis Index 3
[2018-06-16] MEDS: BROVANA NEBU IH SCH ×2 (08:47→20:31)
[2018-06-16] MEDS: PULMICORT IH SCH ×2 (08:47→20:31)
[2018-06-16] MEDS: DUONEB *Not for PRN Use IH SCH ×3 (08:47→20:31)
--- NOTE | 2018-06-16 08:54 | Progress Note ---
Subjective Principal diagnosis: AE-COPD; Acute metabolic-toxic encephalopathy; hyponatremia Interval history: Patient was seen today for follow-up on multiple renal related issues Events of this hospitalization noted Patient denies having any chest pain pressure or shortness of breath Vitals labs intake output medications were reviewed Social history: Reviewed Allergies: Reviewed Family history: Reviewed Physical examination HEENT: Oral mucosa moist no pallor or icterus Neck: Supple no JVD Chest: Clear to auscultation anteriorly CVS: Regular rate and rhythm S1 and S2 heard Abdomen: Soft nontender no suprapubic masses no organomegaly appreciable Extremity: Dry skin less than 1+ peripheral edema Musculoskeletal: No joint effusion noted in knees and ankle Neurological: Alert awake Dermatology: No petechial rashes Psychiatry: No evidence of any agitation and aggression noted Assessment and plan; Hyponatremia: Resolved patient sodium is currently 146 which was 142 on June 13 renal function appears to be normal, urine sodium was about 20 Patient is overall doing well from renal standpoint Would recommend strict intake and output monitoring Will sign off the case please call if needed Objective - Vital Signs Vital signs: Vital Signs - 12hr 06/15/18 06/15/18 06/15/18 22:00 22:19 22:20 Temperature Pulse Rate 98 H 98 H 98 H Pulse Rate [ 98 H Apical] Pulse Rate [ Throughout] Respiratory 21 Rate Respiratory Rate [ Throughout] Blood Pressure 140/90 140/90 Blood Pressure [Left] O2 Sat by Pulse 97 Oximetry 06/16/18 06/16/18 06/16/18 02:46 02:48 07:18 Temperature 98.6 F 100.0 F H Pulse Rate 65 76 Pulse Rate [ Apical] Pulse Rate [ Throughout] Respiratory 20 20 Rate Respiratory Rate [ Throughout] Blood Pressure 118/68 Blood Pressure 128/65 [Left] O2 Sat by Pulse 100 99 Oximetry 06/16/18 06/16/18 08:46 08:47 Temperature Pulse Rate Pulse Rate [ Apical] Pulse Rate [ 77 Throughout] Respiratory Rate Respiratory 18 Rate [ Throughout] Blood Pressure Blood Pressure [Left] O2 Sat by Pulse 97 Oximetry - Lab 06/15/18 04:47 06/16/18 05:22 Most recent lab results Calcium 7.9 mg/dL (8.4-10.2) L 06/16/18 05:22 Phosphorus 3.90 mg/dL (2.5-4.5) 06/04/18 09:47 Magnesium 1.80 mg/dL (1.7-2.3) 06/04/18 09:47 Urine Sodium 20 mmol/L 06/02/18 22:02 Medications & Allergies - Medications Allergies/Adverse Reactions: Allergies diphenhydramine HCl [From Benadryl] Allergy (Verified 09/24/14 11:56) Unknown HALLUCINATIONS Home Medications: Home Medications Medication Instructions Recorded Confirmed Last Taken Type Albuterol *Only Ed* [Proventil 2.5 mg IH Q4HRT PRN #1 nebu 10/03/14 06/03/18 Unknown Rx 0.5% NEBS] Folic Acid [Folvite] 1 mg PO QDAY #30 tablet 10/03/14 06/03/18 Unknown Rx Furosemide [Lasix TAB] 20 mg PO QDAY #30 tablet 10/03/14 06/03/18 Unknown Rx Metoprolol [Lopressor TAB] 12.5 mg PO BID #60 tablet 10/03/14 06/03/18 Unknown Rx Multivitamins Liq [Multiple 5 ml PO QDAY 30 Days oral.liqd 10/03/14 06/03/18 Unknown Rx Vitamin Liq (Theragran)] Thiamine [Vitamin B-1] 100 mg PO QDAY #30 tablet 10/03/14 06/03/18 Unknown Rx Active Medications: Generic Name Dose Route Start Last Admin Trade Name Freq PRN Reason Stop Dose Admin Acetaminophen 650 mg 06/03/18 00:05 06/13/18 03:03 Tylenol PO 650 mg Q4H PRN Administration Pain MILD(1-3)/Fever >100.5/CHANCE Albuterol 2.5 mg 06/03/18 13:11 06/03/18 15:01 Proventil IH 2.5 mg Q4HRT PRN Administration Shortness Of Breath Albuterol/Ipratropium 1 ampul 06/05/18 20:00 06/16/18 08:47 Duoneb *Not For Prn Use* IH 1 ampul TIDRT CINDA Administration Arformoterol Tartrate 15 mcg 06/03/18 20:00 06/16/18 08:47 Brovana Nebu IH Not Given Q12HRT CINDA Budesonide 0.5 mg 06/03/18 20:00 06/16/18 08:47 Pulmicort IH 0.5 mg Q12HRT CINDA Administration Clonidine HCl 0.1 mg 06/11/18 22:00 06/15/18 22:19 Catapres PO 0.1 mg HS CINDA Administration Enoxaparin Sodium 40 mg 06/03/18 10:00 06/15/18 10:06 Lovenox SUB-Q 40 mg QDAY@1000 CINDA Administration Folic Acid 1 mg 06/04/18 10:00 06/15/18 10:15 Folvite PO Not Given QDAY CINDA Haloperidol Lactate 5 mg 06/09/18 09:51 06/10/18 08:36 Haldol IM 5 mg Q6H PRN Administration Acute Psychosis Hydralazine HCl 10 mg 06/06/18 12:10 06/09/18 14:26 Apresoline IV 10 mg Q4H PRN Administration BP >160/100 Ceftriaxone Sodium 1 gm in 50 mls @ 100 mls/hr 06/13/18 12:00 06/15/18 10:06 Rocephin/Ns 1 Gm/50 Ml IV 100 mls/hr Q24HR CINDA Administration Protocol Dextrose/Sodium Chloride 1,000 mls @ 75 mls/hr 06/14/18 14:00 06/15/18 17:37 D5ns 0.2% IV 75 mls/hr DIRECT CINDA Administration Lorazepam 2 mg 06/03/18 14:00 Ativan PO Q1H PRN CIWA-Ar 8-15 Lorazepam 4 mg 06/03/18 14:00 06/10/18 17:15 Ativan IV 2 mg Q1H PRN Administration CIWA-Ar 16-25 Lorazepam 4 mg 06/03/18 14:00 Ativan IV Q15MIN PRN CIWA-Ar >25 Melatonin 5 mg 06/07/18 19:41 06/10/18 23:30 Melatonin PO 5 mg QHS PRN Administration Sleep Methylprednisolone Sodium Succinate 40 mg 06/16/18 10:00 Solu-Medrol IV DAILY CINDA Metoprolol Tartrate 50 mg 06/11/18 10:00 06/15/18 22:20 Lopressor PO 50 mg BID CINDA Administration Mirtazapine 15 mg 06/10/18 22:00 06/15/18 22:20 Remeron PO 15 mg QHS CINDA Administration Multivitamins 5 ml 06/04/18 10:00 06/15/18 10:15 Centrum Liq PO Not Given QDAY [facility] Ondansetron HCl 4 mg 06/03/18 00:05 Zofran IV Q8H PRN Nausea And Vomiting Pantoprazole Sodium 40 mg 06/06/18 10:00 06/15/18 10:15 Protonix PO Not Given DAILY CINDA Sodium Chloride 10 ml 06/03/18 10:00 06/15/18 22:21 Sodium Chloride Flush Syringe 10 Ml IV 10 ml BID CINDA Administration Sodium Chloride 10 ml 06/03/18 00:05 Sodium Chloride Flush Syringe 10 Ml IV PRN PRN LINE FLUSH Tamsulosin HCl 0.4 mg 06/03/18 12:00 06/15/18 10:15 Flomax PO Not Given QDAY [facility] Thiamine HCl 100 mg 06/04/18 10:00 06/15/18 10:15 Vitamin B-1 PO Not Given QDAY [facility]
--- NOTE | 2018-06-16 09:55 | Progress Note ---
Assessment and Plan Assessment and plan: Patient is a 72-year-old man with history of alcoholism and likely dementia which has not been diagnosed but suspected by family who presented to [facility] ED with AMS. It appears his recently and his health has been declining every since with increase alcohol consumption. The patient was found to have a very low sodium, agitated and confused. * CT head no acute findings * Chest x-ray no acute findings -Acute metabolic encephalopathy, suspect ETOH related but no serum etoh level or UDS upon admission: continue to treat with CIWA protocol for alcohol withdrawal -Alcohol dependence and withdrawal: CIWA protocol -Hyponatremia: Continue saline IV fluid, salt tabs -Hypokalemia, k was replaced, monitor levels -UTI suspected, with condom cath: on iv rocephin -Afib with RVR, PAF with hypercoaguable state: Cardiology managed -Beer potomania; counseling done -Acute hypoxic respiratory failure with COPD exacerbation: pulmonology is following, still on iv solumedrol with increase WBC -Tobacco abuse, current every day smoker: counseling done -Dementia: mental health Following -Severe malnutrition, poa -Low grade temp last night 100.5F 06/12/18: get blood culture, and cxr Not in Restraints but mitten are on but not attached. 06/15/2018: d/w son Cachorro Garcia @ [phone] and his ex Xenia who is a RN. Updated give, plan Consult Neurology, repeat UA, we did speak about possible PEG tube 06/16/2018: UA culture ordered, speech evaluation pending, Neurology consult pending. History Interval history: Patient was seen and examined. Follow-up on current diagnosis of AMS, still present. Overnight uneventful. Imaging, nursing note, chart, labs and old chart reviewed. Discussed with patient. Hospitalist Physical - Physical exam Narrative exam: Gen: thin frail, chronically disable appearing, NAD, Awake, Alert, Orientated x1 HEENT: NCAT, EOMI, PERRL, OP Clear Neck: supple, no adenopathy, no thyromegaly, no JVD CVS/Heart: irregular irregular, normal S1S2, pulses present bilaterally Chest/Lungs: CTA B, Symmetrical chest expansion, good air entry bilaterally GI/Abdomen: soft, NTND, good bowel sounds, no guarding or rebound /Bladder: no suprapubic tenderness, no CVA or paraspinal tenderness Extermity/Skin: no c/c/e, no obvious rash MSK: FROM x 4 Neuro: CN 2-12 grossly intact, no new focal deficits Psych: confused - Constitutional Vitals: Temp Pulse Resp BP Pulse Ox 100.0 F H 81 18 118/68 97 06/16/18 07:18 06/16/18 08:57 06/16/18 08:57 06/16/18 07:18 06/16/18 08:46 General appearance: Present: no acute distress Results - Labs CBC & Chem 7: 06/15/18 04:47 06/16/18 05:22 Labs: Laboratory Last Values WBC 16.7 K/mm3 (4.5-11.0) H 06/15/18 04:47 RBC 3.99 M/mm3 (3.65-5.03) 06/15/18 04:47 Hgb 12.7 gm/dl (11.8-15.2) 06/15/18 04:47 Hct 38.8 % (35.5-45.6) 06/15/18 04:47 MCV 97 fl (84-94) H 06/15/18 04:47 MCH 32 pg (28-32) 06/15/18 04:47 MCHC 33 % (32-34) 06/15/18 04:47 RDW 13.7 % (13.2-15.2) 06/15/18 04:47 Plt Count 138 K/mm3 (140-440) L 06/15/18 04:47 Union % (Auto) Massotherapist 06/02/18 21:25 Add Manual Diff Complete 06/04/18 09:47 Total Counted 100 06/04/18 09:47 Seg Neuts % (Manual) 92.0 % (40.0-70.0) H 06/04/18 09:47 Band Neutrophils % 0 % 06/04/18 09:47 Lymphocytes % (Manual) 5.0 % (13.4-35.0) L 06/04/18 09:47 Reactive Lymphs % (Man) 0 % 06/04/18 09:47 Monocytes % (Manual) 3.0 % (0.0-7.3) 06/04/18 09:47 Eosinophils % (Manual) 0 % (0.0-4.3) 06/04/18 09:47 Basophils % (Manual) 0 % (0.0-1.8) 06/04/18 09:47 Metamyelocytes % 0 % 06/04/18 09:47 Myelocytes % 0 % 06/04/18 09:47 Promyelocytes % 0 % 06/04/18 09:47 Blast Cells % 0 % 06/04/18 09:47 Nucleated RBC % Not Reportable 06/04/18 09:47 Seg Neutrophils # Man 4.9 K/mm3 (1.8-7.7) 06/04/18 09:47 Band Neutrophils # 0.0 K/mm3 06/04/18 09:47 Lymphocytes # (Manual) 0.3 K/mm3 (1.2-5.4) L 06/04/18 09:47 Abs React Lymphs (Man) 0.0 K/mm3 06/04/18 09:47 Monocytes # (Manual) 0.2 K/mm3 (0.0-0.8) 06/04/18 09:47 Eosinophils # (Manual) 0.0 K/mm3 (0.0-0.4) 06/04/18 09:47 Basophils # (Manual) 0.0 K/mm3 (0.0-0.1) 06/04/18 09:47 Metamyelocytes # 0.0 K/mm3 06/04/18 09:47 Myelocytes # 0.0 K/mm3 06/04/18 09:47 Promyelocytes # 0.0 K/mm3 06/04/18 09:47 Blast Cells # 0.0 K/mm3 06/04/18 09:47 WBC Morphology Not Reportable 06/04/18 09:47 Hypersegmented Neuts Not Reportable 06/04/18 09:47 Hyposegmented Neuts Not Reportable 06/04/18 09:47 Hypogranular Neuts Not Reportable 06/04/18 09:47 Smudge Cells Not Reportable 06/04/18 09:47 Toxic Granulation 1+ 06/04/18 09:47 Toxic Vacuolation Not Reportable 06/04/18 09:47 Dohle Bodies Not Reportable 06/04/18 09:47 Pelger-Huet Anomaly Not Reportable 06/04/18 09:47 Dashawn Rods Not Reportable 06/04/18 09:47 Platelet Estimate Consistent w auto 06/04/18 09:47 Clumped Platelets Not Reportable 06/04/18 09:47 Plt Clumps, EDTA Not Reportable 06/04/18 09:47 Large Platelets Not Reportable 06/04/18 09:47 Giant Platelets Not Reportable 06/04/18 09:47 Platelet Satelliting Not Reportable 06/04/18 09:47 Plt Morphology Comment Not Reportable 06/04/18 09:47 RBC Morphology Normal 06/04/18 09:47 Dimorphic RBCs Not Reportable 06/04/18 09:47 Polychromasia Not Reportable 06/04/18 09:47 Hypochromasia Not Reportable 06/04/18 09:47 Poikilocytosis Not Reportable 06/04/18 09:47 Anisocytosis Not Reportable 06/04/18 09:47 Microcytosis Not Reportable 06/04/18 09:47 Macrocytosis Not Reportable 06/04/18 09:47 Spherocytes Not Reportable 06/04/18 09:47 Pappenheimer Bodies Not Reportable 06/04/18 09:47 Sickle Cells Not Reportable 06/04/18 09:47 Target Cells Not Reportable 06/04/18 09:47 Tear Drop Cells Not Reportable 06/04/18 09:47 Ovalocytes Not Reportable 06/04/18 09:47 Helmet Cells Not Reportable 06/04/18 09:47 Olivier-Arroyo Bodies Not Reportable 06/04/18 09:47 Byron Rings Not Reportable 06/04/18 09:47 Mic Cells Not Reportable 06/04/18 09:47 Bite Cells Not Reportable 06/04/18 09:47 Crenated Cell Not Reportable 06/04/18 09:47 Elliptocytes Not Reportable 06/04/18 09:47 Acanthocytes (Spur) Not Reportable 06/04/18 09:47 Rouleaux Not Reportable 06/04/18 09:47 Hemoglobin C Crystals Not Reportable 06/04/18 09:47 Schistocytes Not Reportable 06/04/18 09:47 Malaria parasites Not Reportable 06/04/18 09:47 Rajesh Bodies Not Reportable 06/04/18 09:47 Hem Pathologist Commnt No 06/04/18 09:47 Sodium 146 mmol/L (137-145) H 06/16/18 05:22 Potassium 4.0 mmol/L (3.6-5.0) 06/16/18 05:22 Chloride 109.0 mmol/L (98-107) H 06/16/18 05:22 Carbon Dioxide 27 mmol/L (22-30) 06/16/18 05:22 Anion Gap 14 mmol/L 06/16/18 05:22 BUN 39 mg/dL (9-20) H 06/16/18 05:22 Creatinine 0.8 mg/dL (0.8-1.5) 06/16/18 05:22 Estimated GFR > 60 ml/min 06/16/18 05:22 BUN/Creatinine Ratio 49 % 06/16/18 05:22 Glucose 120 mg/dL (75-100) H 06/16/18 05:22 POC Glucose 93 (70-105) 06/02/18 21:18 Osmolality 249 Mosm/kg 06/03/18 20:45 Calcium 7.9 mg/dL (8.4-10.2) L 06/16/18 05:22 Phosphorus 3.90 mg/dL (2.5-4.5) 06/04/18 09:47 Magnesium 1.80 mg/dL (1.7-2.3) 06/04/18 09:47 Total Bilirubin 0.40 mg/dL (0.1-1.2) 06/04/18 04:39 Direct Bilirubin < 0.2 mg/dL (0-0.2) 06/04/18 04:39 Indirect Bilirubin 0.2 mg/dL 06/04/18 04:39 AST 31 units/L (5-40) 06/04/18 04:39 ALT 26 units/L (7-56) 06/04/18 04:39 Alkaline Phosphatase 66 units/L (35-129) 06/04/18 04:39 Ammonia 23.0 umol/L (25-60) L 06/03/18 14:41 Total Creatine Kinase 420 units/L (55-170) H 06/02/18 21:25 Troponin T < 0.010 ng/mL (0.00-0.029) 06/02/18 21:25 NT-Pro-B Natriuret Pep 379.8 pg/mL (0-900) 06/02/18 21:25 Total Protein 5.5 g/dL (6.3-8.2) L 06/04/18 04:39 Albumin 3.1 g/dL (3.9-5) L 06/04/18 04:39 Albumin/Globulin Ratio 1.3 % 06/04/18 04:39 TSH 1.100 mlU/mL (0.270-4.200) 06/03/18 20:45 Urine Color Yellow (Yellow) 06/16/18 03:20 Urine Turbidity Cloudy (Clear) 06/16/18 03:20 Urine pH 5.0 (5.0-7.0) 06/16/18 03:20 Ur Specific [place] 1.020 (1.003-1.030) 06/16/18 03:20 Urine Protein <15 mg/dl mg/dL (Negative) 06/16/18 03:20 Urine Glucose (UA) Neg mg/dL (Negative) 06/16/18 03:20 Urine Ketones Neg mg/dL (Negative) 06/16/18 03:20 Urine Blood Sm (Negative) 06/16/18 03:20 Urine Nitrite Neg (Negative) 06/16/18 03:20 Urine Bilirubin Neg (Negative) 06/16/18 03:20 Urine Urobilinogen < 2.0 mg/dL (<2.0) 06/16/18 03:20 Ur Leukocyte Esterase Lg (Negative) 06/16/18 03:20 Urine WBC (Auto) 89.0 /HPF (0.0-6.0) H 06/16/18 03:20 Urine RBC (Auto) 10.0 /HPF (0.0-6.0) 06/16/18 03:20 U Epithel Cells (Auto) 2.0 /HPF (0-13.0) 06/16/18 03:20 Urine Bacteria (Auto) 1+ /HPF (Negative) 06/16/18 03:20 Urine Mucus Few /HPF 06/16/18 03:20 Urine Yeast (Budding) 1+ /HPF 06/16/18 03:20 Urine Osmolality 203 Mosm/kg 06/02/18 22:02 Urine Sodium 20 mmol/L 06/02/18 22:02 Active Medications - Current Medications Current Medications: Generic Name Dose Route Start Last Admin Trade Name Freq PRN Reason Stop Dose Admin Acetaminophen 650 mg 06/03/18 00:05 06/13/18 03:03 Tylenol PO 650 mg Q4H PRN Administration Pain MILD(1-3)/Fever >100.5/CHANCE Albuterol 2.5 mg 06/03/18 13:11 06/03/18 15:01 Proventil IH 2.5 mg Q4HRT PRN Administration Shortness Of Breath Albuterol/Ipratropium 1 ampul 06/05/18 20:00 06/16/18 08:47 Duoneb *Not For Prn Use* IH 1 ampul TIDRT CINDA Administration Arformoterol Tartrate 15 mcg 06/03/18 20:00 06/16/18 08:47 Brovana Nebu IH Not Given Q12HRT CINDA Budesonide 0.5 mg 06/03/18 20:00 06/16/18 08:47 Pulmicort IH 0.5 mg Q12HRT CINDA Administration Clonidine HCl 0.1 mg 06/11/18 22:00 06/15/18 22:19 Catapres PO 0.1 mg HS CINDA Administration Enoxaparin Sodium 40 mg 06/03/18 10:00 06/15/18 10:06 Lovenox SUB-Q 40 mg QDAY@1000 CINDA Administration Folic Acid 1 mg 06/04/18 10:00 06/15/18 10:15 Folvite PO Not Given QDAY CINDA Haloperidol Lactate 5 mg 06/09/18 09:51 06/10/18 08:36 Haldol IM 5 mg Q6H PRN Administration Acute Psychosis Hydralazine HCl 10 mg 06/06/18 12:10 06/09/18 14:26 Apresoline IV 10 mg Q4H PRN Administration BP >160/100 Ceftriaxone Sodium 1 gm in 50 mls @ 100 mls/hr 06/13/18 12:00 06/15/18 10:06 Rocephin/Ns 1 Gm/50 Ml IV 100 mls/hr Q24HR CINDA Administration Protocol Dextrose/Sodium Chloride 1,000 mls @ 75 mls/hr 06/14/18 14:00 06/15/18 17:37 D5ns 0.2% IV 75 mls/hr DIRECT CINDA Administration Lorazepam 2 mg 06/03/18 14:00 Ativan PO Q1H PRN CIWA-Ar 8-15 Lorazepam 4 mg 06/03/18 14:00 06/10/18 17:15 Ativan IV 2 mg Q1H PRN Administration CIWA-Ar 16-25 Lorazepam 4 mg 06/03/18 14:00 Ativan IV Q15MIN PRN CIWA-Ar >25 Melatonin 5 mg 06/07/18 19:41 06/10/18 23:30 Melatonin PO 5 mg QHS PRN Administration Sleep Methylprednisolone Sodium Succinate 40 mg 06/16/18 10:00 Solu-Medrol IV DAILY CINDA Metoprolol Tartrate 50 mg 06/11/18 10:00 06/15/18 22:20 Lopressor PO 50 mg BID CINDA Administration Mirtazapine 15 mg 06/10/18 22:00 06/15/18 22:20 Remeron PO 15 mg QHS CINDA Administration Multivitamins 5 ml 06/04/18 10:00 06/15/18 10:15 Centrum Liq PO Not Given QDAY [facility] Ondansetron HCl 4 mg 06/03/18 00:05 Zofran IV Q8H PRN Nausea And Vomiting Pantoprazole Sodium 40 mg 06/06/18 10:00 06/15/18 10:15 Protonix PO Not Given DAILY CINDA Sodium Chloride 10 ml 06/03/18 10:00 06/15/18 22:21 Sodium Chloride Flush Syringe 10 Ml IV 10 ml BID CINDA Administration Sodium Chloride 10 ml 06/03/18 00:05 Sodium Chloride Flush Syringe 10 Ml IV PRN PRN LINE FLUSH Tamsulosin HCl 0.4 mg 06/03/18 12:00 06/15/18 10:15 Flomax PO Not Given QDAY [facility] Thiamine HCl 100 mg 06/04/18 10:00 06/15/18 10:15 Vitamin B-1 PO Not Given QDAY [facility] Nutrition/Malnutrition Assess - Dietary Evaluation Nutrition/Malnutrition Findings: Nutrition Notes Start: 06/09/18 14:29 Freq: Status: Active Protocol: Document 06/13/18 15:08 RM (Rec: 06/13/18 15:13 RM [id number]) Nutrition Notes Initial or Follow up Reassessment Current Diagnosis COPD,Hypertension,Heart Failure Other Pertinent Diagnosis Alcoholic Hx, AMS, UTI, Dementia, Metabolic encephalopathy Current Diet NPO (pending ST evaluation) Labs/Tests Reviewed Pertinent Medications Solu-Medrol Height 5 ft 10 in Weight 61.3 kg Garrett Body Weight (kg) 75.45 BMI 19.3 Subjective/Other Information Per nurse pt has been eating bites of food and making wet noises afterwards. Stated she ordered a swallow evaluation and pt will be NPO until then. Burn Absent Trauma Absent #1 Nutrition Diagnosis Inadequate oral intake Diagnosis Progress(for reassessment Continues documentation) Is patient on ventilator? No Is Patient Ambulatory and/or Out of Bed No REE-([facility]-confined to bed) 1643.376 Kcal/Kg value to use for calculation 32 Approximate Energy Requirements Using 1962 kcal/Kg Calculation Used for Recommendations Kcal/kg Additional Notes Protein Needs: 61-73g (1-1.2g/ kg) Fluid Needs: 1 ml/kcal Nutrition Intervention Change Diet Order: Per ST Goal #1 Swallow evaluation Anticipated Discharge Needs: Unable to determine at this time Follow-Up By: 06/17/18 Additional Comments Follow for ST evaluation results, PO intakes
[2018-06-16] MEDS: LOVENOX SUB-Q SCH (10:16)
[2018-06-16] MEDS: ROCEPHIN/NS 1 GM/50 ML 1 GM/50 ML BAG IV SCH (10:16)
[2018-06-16] MEDS: SODIUM CHLORIDE FLUSH SYRINGE 10 ML IV SCH ×2 (10:17→21:00)
[2018-06-16] MEDS: SOLU-Medrol IV SCH (10:17)
[2018-06-16] MEDS: VITAMIN B-1 PO SCH (10:20)
[2018-06-16] MEDS: Centrum Liq PO SCH (10:20)
[2018-06-16] MEDS: LOPRESSOR PO SCH ×2 (10:20→22:59)
[2018-06-16] MEDS: FOLVITE PO SCH (10:20)
[2018-06-16] MEDS: PROTONIX PO SCH (10:20)
[2018-06-16] MEDS: FLOMAX PO SCH (10:20)
[2018-06-16] MEDS: D5NS 0.2% 1,000 ML IV SCH (12:21)
--- NOTE | 2018-06-16 14:32 | Progress Note ---
Assessment and Plan Patient still confused.On 2 litres O2, O2 saturation is 97%. No acute respiratory distress. Patient still having tremors.. - Patient Problems (1) COPD exacerbation Current Visit: No Status: Acute Plan to address problem: According to the history, possible COPD. Patient on 2L O2 Albuterol/Atrovent aerosol treatments q6hrs Continue solumedrol Continue Lovenox Continue Protonix (2) Acute hyponatremia Current Visit: Yes Status: Acute Plan to address problem: sodium improved to 146 (3) Altered mental status Current Visit: Yes Status: Acute Plan to address problem: Watch altered mental status. (4) Alcohol abuse Current Visit: Yes Status: Chronic Plan to address problem: Patient confused and having Tremors. Patient is on I/V ativan. Subjective Date of service: 06/16/18 Principal diagnosis: AE-COPD; Acute metabolic-toxic encephalopathy; hyponatremia Interval history: Patient still confused.On 2 litres O2, O2 saturation is 97%. No acute respi ratory distress. Patient still having tremors.. Objective Vital Signs - 12hr 06/16/18 06/16/18 06/16/18 02:46 02:48 07:18 Temperature 98.6 F 100.0 F H Pulse Rate 65 76 Pulse Rate [ Throughout] Respiratory 20 20 Rate Respiratory Rate [ Throughout] Blood Pressure 118/68 Blood Pressure 128/65 [Left] O2 Sat by Pulse 100 99 Oximetry 06/16/18 06/16/18 06/16/18 08:46 08:47 08:57 Temperature Pulse Rate Pulse Rate [ 77 81 Throughout] Respiratory Rate Respiratory 18 18 Rate [ Throughout] Blood Pressure Blood Pressure [Left] O2 Sat by Pulse 97 Oximetry Constitutional: no acute distress, lethargic, other (elderly and chronically ill looking CM with mildly increased respiratory effort at rest) Eyes: non-icteric ENT: oropharynx moist Neck: supple, no JVD, other (no thyromegaly) Effort: mildly labored Ascultation: Bilateral: diminished breath sounds, other (prolonged expiratory phase) Percussion: Bilateral: not dull Cardiovascular: regular rate and rhythm Gastrointestinal: normoactive bowel sounds, soft, non-tender, non-distended Integumentary: normal Extremities: no cyanosis, no edema, pink and warm, pulses normal Neurologic: non-focal exam (grossly), pupils equal and round, CN II-XII normal Psychiatric: other (delirious) CBC and BMP: 06/15/18 04:47 06/16/18 05:22 Abnormal lab findings: Abnormal Labs 06/02/18 06/02/18 06/02/18 21:25 21:25 22:03 WBC MCV MCH 33 H MCHC 35 H RDW 12.8 L Plt Count Seg Neuts % (Manual) 80.0 H Lymphocytes % (Manual) Lymphocytes # (Manual) 0.8 L Sodium 109 L* Potassium Chloride 71.3 L Carbon Dioxide BUN 6 L Creatinine 0.5 L Glucose Calcium Ammonia Total Creatine Kinase 420 H Total Protein Albumin Urine WBC (Auto) 24.0 H 06/03/18 06/03/18 06/03/18 00:15 06:27 09:42 WBC MCV MCH MCHC RDW Plt Count Seg Neuts % (Manual) Lymphocytes % (Manual) Lymphocytes # (Manual) Sodium 113 L* 118 L* 116 L* Potassium 3.5 L 3.5 L Chloride 77.2 L 79.1 L 78.2 L Carbon Dioxide BUN 5 L 4 L 4 L Creatinine 0.4 L 0.5 L 0.4 L Glucose Calcium 8.2 L 7.9 L 8.1 L Ammonia Total Creatine Kinase Total Protein Albumin Urine WBC (Auto) 06/03/18 06/03/18 06/03/18 14:41 14:41 20:45 WBC MCV MCH MCHC RDW Plt Count Seg Neuts % (Manual) Lymphocytes % (Manual) Lymphocytes # (Manual) Sodium 114 L* 118 L* Potassium 3.1 L Chloride 76.3 L 79.7 L Carbon Dioxide BUN 4 L 3 L Creatinine 0.5 L 0.4 L Glucose Calcium 8.1 L 8.3 L Ammonia 23.0 L Total Creatine Kinase Total Protein Albumin Urine WBC (Auto) 06/04/18 06/04/18 06/04/18 04:39 09:47 09:47 WBC MCV 95 H MCH 33 H MCHC RDW 12.8 L Plt Count Seg Neuts % (Manual) 92.0 H Lymphocytes % (Manual) 5.0 L Lymphocytes # (Manual) 0.3 L Sodium 123 L Potassium Chloride 85.2 L Carbon Dioxide BUN 5 L Creatinine 0.5 L Glucose 129 H Calcium 8.3 L Ammonia Total Creatine Kinase Total Protein 5.5 L Albumin 3.1 L Urine WBC (Auto) 06/05/18 06/06/18 06/07/18 04:29 05:25 07:11 WBC MCV MCH MCHC RDW Plt Count Seg Neuts % (Manual) Lymphocytes % (Manual) Lymphocytes # (Manual) Sodium 126 L 133 L D 126 L D Potassium Chloride 90.4 L 95.1 L 86.1 L Carbon Dioxide BUN 8 L Creatinine 0.5 L 0.5 L 0.5 L Glucose 170 H 123 H 129 H Calcium 8.2 L 8.1 L Ammonia Total Creatine Kinase Total Protein Albumin Urine WBC (Auto) 06/08/18 06/09/18 06/10/18 11:03 06:13 07:14 WBC MCV MCH MCHC RDW Plt Count Seg Neuts % (Manual) Lymphocytes % (Manual) Lymphocytes # (Manual) Sodium 134 L D Potassium Chloride 92.2 L Carbon Dioxide 31 H BUN Creatinine 0.5 L 0.6 L 0.5 L Glucose 106 H 130 H 126 H Calcium Ammonia Total Creatine Kinase Total Protein Albumin Urine WBC (Auto) 06/11/18 06/12/18 06/13/18 10:23 04:58 05:33 WBC MCV MCH MCHC RDW Plt Count Seg Neuts % (Manual) Lymphocytes % (Manual) Lymphocytes # (Manual) Sodium 136 L 134 L Potassium 3.5 L Chloride Carbon Dioxide BUN 27 H Creatinine 0.4 L 0.5 L 0.6 L Glucose 155 H 141 H 112 H Calcium 8.1 L 7.9 L 8.3 L Ammonia Total Creatine Kinase Total Protein Albumin Urine WBC (Auto) 06/13/18 06/14/18 06/14/18 05:33 05:14 05:14 WBC 12.6 H 12.3 H MCV 97 H 98 H MCH 33 H MCHC RDW Plt Count 133 L Seg Neuts % (Manual) Lymphocytes % (Manual) Lymphocytes # (Manual) Sodium 146 H Potassium Chloride 107.2 H Carbon Dioxide BUN 31 H Creatinine 0.6 L Glucose 113 H Calcium Ammonia Total Creatine Kinase Total Protein Albumin Urine WBC (Auto) 06/15/18 06/15/18 06/16/18 04:47 04:47 03:20 WBC 16.7 H MCV 97 H MCH MCHC RDW Plt Count 138 L Seg Neuts % (Manual) Lymphocytes % (Manual) Lymphocytes # (Manual) Sodium 146 H Potassium Chloride 109.2 H Carbon Dioxide BUN 32 H Creatinine 0.6 L Glucose 124 H Calcium 7.8 L Ammonia Total Creatine Kinase Total Protein Albumin Urine WBC (Auto) 89.0 H 06/16/18 05:22 WBC MCV MCH MCHC RDW Plt Count Seg Neuts % (Manual) Lymphocytes % (Manual) Lymphocytes # (Manual) Sodium 146 H Potassium Chloride 109.0 H Carbon Dioxide BUN 39 H Creatinine Glucose 120 H Calcium 7.9 L Ammonia Total Creatine Kinase Total Protein Albumin Urine WBC (Auto) Chest x-ray: report reviewed (Reported no acute process.), image reviewed Allied health notes reviewed: nursing
[2018-06-16] MEDS: TYLENOL PR PRN (15:14)
--- NOTE | 2018-06-16 17:32 | Consultation ---
History of Present Illness Consult date: 06/16/18 Reason for Consult: AMS Chief complaint: AMS History of present illness: This is a 72 YO M admitted 06/03 for AMS, weakness and trouble urinating. No fmaily at bedside but as per notes pt lost his a shirt time ago and has been heavy on alcohol since then. On admission had a sodium of 109 which has since been repleted. Dementia is suspected. Pt with increasing white blood cell count recently. No obvious source. On my arrival pt will follow some simple commands but not speaking much. Past History Past Medical History: hypertension Past Surgical History: No surgical history Social history: no significant social history, , Lives alone, alcohol abuse Family history: no significant family history Medications and Allergies Allergies Allergy/AdvReac Type Severity Reaction Status Date / Time diphenhydramine HCl Allergy Unknown Verified 09/24/14 11:56 [From [facility]] Home Medications Medication Instructions Recorded Confirmed Last Taken Type Albuterol *Only Ed* [Proventil 2.5 mg IH Q4HRT PRN #1 nebu 10/03/14 06/03/18 Unknown Rx 0.5% NEBS] Folic Acid [Folvite] 1 mg PO QDAY #30 tablet 10/03/14 06/03/18 Unknown Rx Furosemide [Lasix TAB] 20 mg PO QDAY #30 tablet 10/03/14 06/03/18 Unknown Rx Metoprolol [Lopressor TAB] 12.5 mg PO BID #60 tablet 10/03/14 06/03/18 Unknown Rx Multivitamins Liq [Multiple 5 ml PO QDAY 30 Days oral.liqd 10/03/14 06/03/18 Unknown Rx Vitamin Liq (Theragran)] Thiamine [Vitamin B-1] 100 mg PO QDAY #30 tablet 10/03/14 06/03/18 Unknown Rx Active Meds: Active Medications Acetaminophen (Tylenol) 650 mg PO Q4H PRN PRN Reason: Pain MILD(1-3)/Fever >100.5/CHANCE Last Admin: 06/13/18 03:03 Dose: 650 mg Documented by: Acetaminophen (Tylenol) 650 mg DC Q4H PRN PRN Reason: Non Cardiac Pain or Temp>100.5 Last Admin: 06/16/18 15:14 Dose: 650 mg Documented by: Albuterol (Proventil) 2.5 mg IH Q4HRT PRN PRN Reason: Shortness Of Breath Last Admin: 06/03/18 15:01 Dose: 2.5 mg Documented by: Albuterol/Ipratropium (Duoneb *Not For Prn Use*) 1 ampul IH TIDRT [facility] Last Admin: 06/16/18 15:06 Dose: 1 ampul Documented by: Arformoterol Tartrate (Brovana Nebu) 15 mcg IH Q12HRT [facility] Last Admin: 06/16/18 08:47 Dose: Not Given Documented by: Budesonide (Pulmicort) 0.5 mg IH Q12HRT [facility] Last Admin: 06/16/18 08:47 Dose: 0.5 mg Documented by: Clonidine HCl (Catapres) 0.1 mg PO HS [facility] Last Admin: 06/15/18 22:19 Dose: 0.1 mg Documented by: Enoxaparin Sodium (Lovenox) 40 mg SUB-Q QDAY@1000 [facility] Last Admin: 06/16/18 10:16 Dose: 40 mg Documented by: Folic Acid (Folvite) 1 mg PO QDAY [facility] Last Admin: 06/15/18 10:15 Dose: Not Given Documented by: Haloperidol Lactate (Haldol) 5 mg IM Q6H PRN PRN Reason: Acute Psychosis Last Admin: 06/10/18 08:36 Dose: 5 mg Documented by: Hydralazine HCl (Apresoline) 10 mg IV Q4H PRN PRN Reason: BP >160/100 Last Admin: 06/09/18 14:26 Dose: 10 mg Documented by: Ceftriaxone Sodium (Rocephin/Ns 1 Gm/50 Ml) 1 gm in 50 mls @ 100 mls/hr IV Q 24HR [facility]; Protocol Last Admin: 06/16/18 10:16 Dose: 100 mls/hr Documented by: Dextrose/Sodium Chloride (D5ns 0.2%) 1,000 mls @ 75 mls/hr IV DIRECT [facility] Last Admin: 06/16/18 12:21 Dose: 75 mls/hr Documented by: Lorazepam (Ativan) 2 mg PO Q1H PRN PRN Reason: CIWA-Ar 8-15 Lorazepam (Ativan) 4 mg IV Q1H PRN PRN Reason: CIWA-Ar 16-25 Last Admin: 06/10/18 17:15 Dose: 2 mg Documented by: Lorazepam (Ativan) 4 mg IV Q15MIN PRN PRN Reason: CIWA-Ar >25 Melatonin (Melatonin) 5 mg PO QHS PRN PRN Reason: Sleep Last Admin: 06/10/18 23:30 Dose: 5 mg Documented by: Methylprednisolone Sodium Succinate (Solu-Medrol) 40 mg IV DAILY [facility] Last Admin: 06/16/18 10:17 Dose: 40 mg Documented by: Metoprolol Tartrate (Lopressor) 50 mg PO BID [facility] Last Admin: 06/15/18 22:20 Dose: 50 mg Documented by: Mirtazapine (Remeron) 15 mg PO QHS [facility] Last Admin: 06/15/18 22:20 Dose: 15 mg Documented by: Multivitamins (Centrum Liq) 5 ml PO QDAY [facility] Last Admin: 06/15/18 10:15 Dose: Not Given Documented by: Ondansetron HCl (Zofran) 4 mg IV Q8H PRN PRN Reason: Nausea And Vomiting Pantoprazole Sodium (Protonix) 40 mg PO DAILY [facility] Last Admin: 06/15/18 10:15 Dose: Not Given Documented by: Sodium Chloride (Sodium Chloride Flush Syringe 10 Ml) 10 ml IV BID [facility] Last Admin: 06/16/18 10:17 Dose: 10 ml Documented by: Sodium Chloride (Sodium Chloride Flush Syringe 10 Ml) 10 ml IV PRN PRN PRN Reason: LINE FLUSH Tamsulosin HCl (Flomax) 0.4 mg PO QDAY [facility] Last Admin: 06/15/18 10:15 Dose: Not Given Documented by: Thiamine HCl (Vitamin B-1) 100 mg PO QDAY [facility] Last Admin: 06/15/18 10:15 Dose: Not Given Documented by: Review of Systems ROS unobtainable: due to mental status Physical Examination - Vital Signs Vital Signs: Vital Signs Temp Pulse Resp BP Pulse Ox 98.2 F 79 16 140/85 99 06/02/18 20:56 06/02/18 20:56 06/02/18 20:56 06/02/18 20:56 06/02/18 20:56 - Constitutional General appearance: comfortable - EENT EENT: Present: PERRL, mucous membranes dry, vision intact - Respiratory Respiratory: Present: lungs clear - Gastrointestinal Gastrointestinal: Present: soft - Neurologic Cranial nerve examination: PERRL, EOMI, V1/V2/V3 grossly intact, face symmetric, tongue midline Detailed motor examination: grossly full strength in Motor examination - right side: 15: account specialist Reflexes: 0: ankle, bicep, knee, tricep Results - Laboratory Findings CBC and BMP: 06/15/18 04:47 06/16/18 05:22 Abnormal Lab Findings: Abnormal Labs 06/02/18 06/02/18 06/02/18 21:25 21:25 22:03 WBC MCV MCH 33 H MCHC 35 H RDW 12.8 L Plt Count Seg Neuts % (Manual) 80.0 H Lymphocytes % (Manual) Lymphocytes # (Manual) 0.8 L Sodium 109 L* Potassium Chloride 71.3 L Carbon Dioxide BUN 6 L Creatinine 0.5 L Glucose Calcium Ammonia Total Creatine Kinase 420 H Total Protein Albumin Urine WBC (Auto) 24.0 H 06/03/18 06/03/18 06/03/18 00:15 06:27 09:42 WBC MCV MCH MCHC RDW Plt Count Seg Neuts % (Manual) Lymphocytes % (Manual) Lymphocytes # (Manual) Sodium 113 L* 118 L* 116 L* Potassium 3.5 L 3.5 L Chloride 77.2 L 79.1 L 78.2 L Carbon Dioxide BUN 5 L 4 L 4 L Creatinine 0.4 L 0.5 L 0.4 L Glucose Calcium 8.2 L 7.9 L 8.1 L Ammonia Total Creatine Kinase Total Protein Albumin Urine WBC (Auto) 06/03/18 06/03/18 06/03/18 14:41 14:41 20:45 WBC MCV MCH MCHC RDW Plt Count Seg Neuts % (Manual) Lymphocytes % (Manual) Lymphocytes # (Manual) Sodium 114 L* 118 L* Potassium 3.1 L Chloride 76.3 L 79.7 L Carbon Dioxide BUN 4 L 3 L Creatinine 0.5 L 0.4 L Glucose Calcium 8.1 L 8.3 L Ammonia 23.0 L Total Creatine Kinase Total Protein Albumin Urine WBC (Auto) 06/04/18 06/04/18 06/04/18 04:39 09:47 09:47 WBC MCV 95 H MCH 33 H MCHC RDW 12.8 L Plt Count Seg Neuts % (Manual) 92.0 H Lymphocytes % (Manual) 5.0 L Lymphocytes # (Manual) 0.3 L Sodium 123 L Potassium Chloride 85.2 L Carbon Dioxide BUN 5 L Creatinine 0.5 L Glucose 129 H Calcium 8.3 L Ammonia Total Creatine Kinase Total Protein 5.5 L Albumin 3.1 L Urine WBC (Auto) 06/05/18 06/06/18 06/07/18 04:29 05:25 07:11 WBC MCV MCH MCHC RDW Plt Count Seg Neuts % (Manual) Lymphocytes % (Manual) Lymphocytes # (Manual) Sodium 126 L 133 L D 126 L D Potassium Chloride 90.4 L 95.1 L 86.1 L Carbon Dioxide BUN 8 L Creatinine 0.5 L 0.5 L 0.5 L Glucose 170 H 123 H 129 H Calcium 8.2 L 8.1 L Ammonia Total Creatine Kinase Total Protein Albumin Urine WBC (Auto) 06/08/18 06/09/18 06/10/18 11:03 06:13 07:14 WBC MCV MCH MCHC RDW Plt Count Seg Neuts % (Manual) Lymphocytes % (Manual) Lymphocytes # (Manual) Sodium 134 L D Potassium Chloride 92.2 L Carbon Dioxide 31 H BUN Creatinine 0.5 L 0.6 L 0.5 L Glucose 106 H 130 H 126 H Calcium Ammonia Total Creatine Kinase Total Protein Albumin Urine WBC (Auto) 06/11/18 06/12/18 06/13/18 10:23 04:58 05:33 WBC MCV MCH MCHC RDW Plt Count Seg Neuts % (Manual) Lymphocytes % (Manual) Lymphocytes # (Manual) Sodium 136 L 134 L Potassium 3.5 L Chloride Carbon Dioxide BUN 27 H Creatinine 0.4 L 0.5 L 0.6 L Glucose 155 H 141 H 112 H Calcium 8.1 L 7.9 L 8.3 L Ammonia Total Creatine Kinase Total Protein Albumin Urine WBC (Auto) 06/13/18 06/14/18 06/14/18 05:33 05:14 05:14 WBC 12.6 H 12.3 H MCV 97 H 98 H MCH 33 H MCHC RDW Plt Count 133 L Seg Neuts % (Manual) Lymphocytes % (Manual) Lymphocytes # (Manual) Sodium 146 H Potassium Chloride 107.2 H Carbon Dioxide BUN 31 H Creatinine 0.6 L Glucose 113 H Calcium Ammonia Total Creatine Kinase Total Protein Albumin Urine WBC (Auto) 0406/15/18 06/16/18 04:47 04:47 03:20 WBC 16.7 H MCV 97 H MCH MCHC RDW Plt Count 138 L Seg Neuts % (Manual) Lymphocytes % (Manual) Lymphocytes # (Manual) Sodium 146 H Potassium Chloride 109.2 H Carbon Dioxide BUN 32 H Creatinine 0.6 L Glucose 124 H Calcium 7.8 L Ammonia Total Creatine Kinase Total Protein Albumin Urine WBC (Auto) 89.0 H 06/16/18 05:22 WBC MCV MCH MCHC RDW Plt Count Seg Neuts % (Manual) Lymphocytes % (Manual) Lymphocytes # (Manual) Sodium 146 H Potassium Chloride 109.0 H Carbon Dioxide BUN 39 H Creatinine Glucose 120 H Calcium 7.9 L Ammonia Total Creatine Kinase Total Protein Albumin Urine WBC (Auto) - Diagnostic Findings Additional findings: CT head normal Assessment and Plan Delirium superimposed on possible dementia Recommend: MRI Brain if no contraindication . CT Brain unrevealing EEG to look for background slowing which would support a diagnosis of dementia B12, RPR, recheck ammonia Work up for leukocytosis underway. Continue care for all medical issues as you are doing Pt will need outpatient neuro follow up for definitive dementia diagnosis. Needs to be done when pt is stable and not with other medical issues (leukocytosis, electrolyte abnormalities, etc.
[2018-06-16] MEDS: SODIUM CHLORIDE PO SCH (19:05)
[2018-06-16] MEDS: HALDOL IM PRN (21:13)
[2018-06-16] MEDS: CATAPRES PO SCH (22:59)
[2018-06-16] MEDS: REMERON PO SCH (23:00)
[2018-06-17] MEDS: D5NS 0.2% 1,000 ML IV SCH (01:25)
[2018-06-17] MEDS: HALDOL IM PRN ×2 (02:45→13:20)
[2018-06-17] MEDS ORDERED: LOPRESSOR IV ONE (03:11)
[2018-06-17 08:51] LABS: Hematocrit 37.2 % (35.5-45.6); Hemoglobin 12.4 gm/dl (11.8-15.2); Mean Corpuscular HGB Conc 33 % (32-34); Mean Corpuscular Volume 98 fl (84-94); Platelet Count 107 K/mm3 (140-440); Red Blood Count 3.79 M/mm3 (3.65-5.03); Red Cell Distribution Width 13.7 % (13.2-15.2)
[2018-06-17 09:17] LABS: Alanine Aminotransferase 30 units/L (7-56); BUN/Creatinine Ratio 52; Blood Urea Nitrogen 47 mg/dL (9-20); Calcium 8.3 mg/dL (8.4-10.2)
[2018-06-17 09:18] LABS: Albumin 2.9 g/dL (3.9-5); Hemolysis Index 10
[2018-06-17] MEDS: ROCEPHIN/NS 1 GM/50 ML 1 GM/50 ML BAG IV SCH (09:24)
[2018-06-17] MEDS: SOLU-Medrol IV SCH (09:24)
[2018-06-17] MEDS: FOLVITE PO SCH (09:25)
[2018-06-17] MEDS: FLOMAX PO SCH (09:25)
[2018-06-17] MEDS: LOPRESSOR PO SCH ×2 (09:25→23:37)
[2018-06-17] MEDS: LOVENOX SUB-Q SCH (09:25)
[2018-06-17] MEDS: VITAMIN B-1 PO SCH (09:26)
[2018-06-17] MEDS: Centrum Liq PO SCH (09:26)
[2018-06-17] MEDS: SODIUM CHLORIDE FLUSH SYRINGE 10 ML IV SCH ×2 (09:26→21:00)
[2018-06-17] MEDS: PROTONIX PO SCH (09:26)
[2018-06-17] MEDS: PULMICORT IH SCH ×2 (09:30→21:25)
[2018-06-17] MEDS: BROVANA NEBU IH SCH ×2 (09:30→21:25)
[2018-06-17] MEDS: DUONEB *Not for PRN Use IH SCH ×3 (09:30→21:25)
--- NOTE | 2018-06-17 09:51 | Progress Note ---
Assessment and Plan Patient still confused.On 2 litres O2, O2 saturation is 99%. No acute respiratory distress. Patient receiving aerosol treatment at this time.. - Patient Problems (1) COPD exacerbation Current Visit: No Status: Acute Plan to address problem: According to the history, possible COPD. Patient on 2L O2 Albuterol/Atrovent aerosol treatments q6hrs Continue solumedrol Continue Lovenox Continue Protonix Patient is on cefazolin. (2) Acute hyponatremia Current Visit: Yes Status: Acute Plan to address problem: sodium improved to 146 (3) Altered mental status Current Visit: Yes Status: Acute Plan to address problem: Watch altered mental status. (4) Alcohol abuse Current Visit: Yes Status: Chronic Plan to address problem: Patient confused and having Tremors. Patient is on I/V ativan. Subjective Date of service: 06/17/18 Principal diagnosis: AE-COPD; Acute metabolic-toxic encephalopathy; hyponatremia Interval history: Patient still confused.On 2 litres O2, O2 saturation is 99%. No acute respiratory distress. Patient receiving aerosol treatment at this time.. Objective Vital Signs - 12hr 06/16/18 06/17/18 06/17/18 22:00 02:18 02:20 Temperature 98.1 F Pulse Rate 106 H Pulse Rate [ Throughout] Respiratory 22 Rate Respiratory 20 Rate [Lower Back] Respiratory Rate [ Throughout] Blood Pressure 112/70 O2 Sat by Pulse 99 Oximetry 06/17/18 06/17/18 06/17/18 03:17 03:28 04:21 Temperature Pulse Rate 145 H 106 H 69 Pulse Rate [ Throughout] Respiratory Rate Respiratory Rate [Lower Back] Respiratory Rate [ Throughout] Blood Pressure 112/70 99/66 O2 Sat by Pulse 100 Oximetry 06/17/18 06/17/18 06/17/18 07:26 07:57 09:30 Temperature 98.3 F Pulse Rate 87 Pulse Rate [ 75 Throughout] Respiratory 18 22 Rate Respiratory Rate [Lower Back] Respiratory 20 Rate [ Throughout] Blood Pressure 109/67 O2 Sat by Pulse 96 99 Oximetry Constitutional: no acute distress, lethargic, other (elderly and chronically ill looking CM with mildly increased respiratory effort at rest) Eyes: non-icteric ENT: oropharynx moist Neck: supple, no JVD, other (no thyromegaly) Effort: mildly labored Ascultation: Bilateral: diminished breath sounds, other (prolonged expiratory phase) Percussion: Bilateral: not dull Cardiovascular: regular rate and rhythm Gastrointestinal: normoactive bowel sounds, soft, non-tender, non-distended Integumentary: normal Extremities: no cyanosis, no edema, pink and warm, pulses normal Neurologic: non-focal exam (grossly), pupils equal and round, CN II-XII normal Psychiatric: other (delirious) CBC and BMP: 06/17/18 08:21 06/17/18 08:21 Abnormal lab findings: Abnormal Labs 06/02/18 06/02/18 06/02/18 21:25 21:25 22:03 WBC MCV MCH 33 H MCHC 35 H RDW 12.8 L Plt Count Seg Neuts % (Manual) 80.0 H Lymphocytes % (Manual) Lymphocytes # (Manual) 0.8 L Sodium 109 L* Potassium Chloride 71.3 L Carbon Dioxide BUN 6 L Creatinine 0.5 L Glucose Calcium Magnesium Ammonia Total Creatine Kinase 420 H Total Protein Albumin Urine WBC (Auto) 24.0 H 06/03/18 06/03/18 06/03/18 00:15 06:27 09:42 WBC MCV MCH MCHC RDW Plt Count Seg Neuts % (Manual) Lymphocytes % (Manual) Lymphocytes # (Manual) Sodium 113 L* 118 L* 116 L* Potassium 3.5 L 3.5 L Chloride 77.2 L 79.1 L 78.2 L Carbon Dioxide BUN 5 L 4 L 4 L Creatinine 0.4 L 0.5 L 0.4 L Glucose Calcium 8.2 L 7.9 L 8.1 L Magnesium Ammonia Total Creatine Kinase Total Protein Albumin Urine WBC (Auto) 06/03/18 06/03/18 06/03/18 14:41 14:41 20:45 WBC MCV MCH MCHC RDW Plt Count Seg Neuts % (Manual) Lymphocytes % (Manual) Lymphocytes # (Manual) Sodium 114 L* 118 L* Potassium 3.1 L Chloride 76.3 L 79.7 L Carbon Dioxide BUN 4 L 3 L Creatinine 0.5 L 0.4 L Glucose Calcium 8.1 L 8.3 L Magnesium Ammonia 23.0 L Total Creatine Kinase Total Protein Albumin Urine WBC (Auto) 06/04/18 06/04/18 06/04/18 04:39 09:47 09:47 WBC MCV 95 H MCH 33 H MCHC RDW 12.8 L Plt Count Seg Neuts % (Manual) 92.0 H Lymphocytes % (Manual) 5.0 L Lymphocytes # (Manual) 0.3 L Sodium 123 L Potassium Chloride 85.2 L Carbon Dioxide BUN 5 L Creatinine 0.5 L Glucose 129 H Calcium 8.3 L Magnesium Ammonia Total Creatine Kinase Total Protein 5.5 L Albumin 3.1 L Urine WBC (Auto) 06/05/18 06/06/18 06/07/18 04:29 05:25 07:11 WBC MCV MCH MCHC RDW Plt Count Seg Neuts % (Manual) Lymphocytes % (Manual) Lymphocytes # (Manual) Sodium 126 L 133 L D 126 L D Potassium Chloride 90.4 L 95.1 L 86.1 L Carbon Dioxide BUN 8 L Creatinine 0.5 L 0.5 L 0.5 L Glucose 170 H 123 H 129 H Calcium 8.2 L 8.1 L Magnesium Ammonia Total Creatine Kinase Total Protein Albumin Urine WBC (Auto) 06/08/18 06/09/18 06/10/18 11:03 06:13 07:14 WBC MCV MCH MCHC RDW Plt Count Seg Neuts % (Manual) Lymphocytes % (Manual) Lymphocytes # (Manual) Sodium 134 L D Potassium Chloride 92.2 L Carbon Dioxide 31 H BUN Creatinine 0.5 L 0.6 L 0.5 L Glucose 106 H 130 H 126 H Calcium Magnesium Ammonia Total Creatine Kinase Total Protein Albumin Urine WBC (Auto) 06/11/18 06/12/18 06/13/18 10:23 04:58 05:33 WBC MCV MCH MCHC RDW Plt Count Seg Neuts % (Manual) Lymphocytes % (Manual) Lymphocytes # (Manual) Sodium 136 L 134 L Potassium 3.5 L Chloride Carbon Dioxide BUN 27 H Creatinine 0.4 L 0.5 L 0.6 L Glucose 155 H 141 H 112 H Calcium 8.1 L 7.9 L 8.3 L Magnesium Ammonia Total Creatine Kinase Total Protein Albumin Urine WBC (Auto) 06/13/18 06/14/18 06/14/18 05:33 05:14 05:14 WBC 12.6 H 12.3 H MCV 97 H 98 H MCH 33 H MCHC RDW Plt Count 133 L Seg Neuts % (Manual) Lymphocytes % (Manual) Lymphocytes # (Manual) Sodium 146 H Potassium Chloride 107.2 H Carbon Dioxide BUN 31 H Creatinine 0.6 L Glucose 113 H Calcium Magnesium Ammonia Total Creatine Kinase Total Protein Albumin Urine WBC (Auto) 06/15/18 06/15/18 06/16/18 04:47 04:47 03:20 WBC 16.7 H MCV 97 H MCH MCHC RDW Plt Count 138 L Seg Neuts % (Manual) Lymphocytes % (Manual) Lymphocytes # (Manual) Sodium 146 H Potassium Chloride 109.2 H Carbon Dioxide BUN 32 H Creatinine 0.6 L Glucose 124 H Calcium 7.8 L Magnesium Ammonia Total Creatine Kinase Total Protein Albumin Urine WBC (Auto) 89.0 H 06/16/18 06/17/18 06/17/18 05:22 08:21 08:21 WBC 11.4 H MCV 98 H MCH 33 H MCHC RDW Plt Count 107 L Seg Neuts % (Manual) Lymphocytes % (Manual) Lymphocytes # (Manual) Sodium 146 H 146 H Potassium Chloride 109.0 H 109.2 H Carbon Dioxide BUN 39 H 47 H Creatinine Glucose 120 H 109 H Calcium 7.9 L 8.3 L Magnesium 2.60 H Ammonia Total Creatine Kinase Total Protein 5.2 L Albumin 2.9 L Urine WBC (Auto) Chest x-ray: report reviewed (Reported unremarkable AP chest.), image reviewed Allied health notes reviewed: nursing
--- NOTE | 2018-06-17 10:29 | Gastroenterology Consultation ---
<LUZMARIA CANO - Last Filed: 06/17/18 10:53> History of Present Illness - Reason for Consult Consult date: 06/17/18 PEG placement Requesting physician: RAY JACKSON - History of Present Illness Patient is a 72 y/o male with PMH of HTN, CHF, and alcoholism (consumption of alcohol recently increased after passing of his 2 weeks ago) who presented to ED with c/o AMS, weakness, and trouble urinating. Upon admission, Head CT was negative but sodium level was found to be low (109). He was admitted and currently being treated for acute metabolic encephalopathy, alcohol dependence, hyponatremia, suspected UTI, Afib with RVR (now SR), acute hypoxic respiratory failure with COPD exacerbation, suspected dementia, and severe malnutrition. Neurology following with MRI of brain pending. Pulmonary also following and ID consult pending for low grade fever yesterday (now resolved) and increase leukocytosis which is now improving. GI has been consulted for a PEG placement following a failed LOCKET MAKER evaluation. This morning patient was resting in bed w/o acute distress, in restraints, and no family at bedside. Patient noted to be a confused and unable to provide history. History obtained via chart review. Upon exam, abdomen benign with no evidence of abd pain or N/V. Past History Past Medical History: other (as per HPI) Past Surgical History: No surgical history Social history: no significant social history, , Lives alone, alcohol ab use Family history: no significant family history Medications and Allergies Allergies Allergy/AdvReac Type Severity Reaction Status Date / Time diphenhydramine HCl Allergy Unknown Verified 09/24/14 11:56 [From Benadryl] Home Medications Medication Instructions Recorded Confirmed Last Taken Type Albuterol *Only Ed* [Proventil 2.5 mg IH Q4HRT PRN #1 nebu 10/03/14 06/03/18 Unknown Rx 0.5% NEBS] Folic Acid [Folvite] 1 mg PO QDAY #30 tablet 10/03/14 06/03/18 Unknown Rx Furosemide [Lasix TAB] 20 mg PO QDAY #30 tablet 10/03/14 06/03/18 Unknown Rx Metoprolol [Lopressor TAB] 12.5 mg PO BID #60 tablet 10/03/14 06/03/18 Unknown Rx Multivitamins Liq [Multiple 5 ml PO QDAY 30 Days oral.liqd 10/03/14 06/03/18 Unknown Rx Vitamin Liq (Theragran)] Thiamine [Vitamin B-1] 100 mg PO QDAY #30 tablet 10/03/14 06/03/18 Unknown Rx Active Meds: Active Medications Acetaminophen (Tylenol) 650 mg PO Q4H PRN PRN Reason: Pain MILD(1-3)/Fever >100.5/CHANCE Last Admin: 06/13/18 03:03 Dose: 650 mg Documented by: Acetaminophen (Tylenol) 650 mg SC Q4H PRN PRN Reason: Non Cardiac Pain or Temp>100.5 Last Admin: 06/16/18 15:14 Dose: 650 mg Documented by: Albuterol (Proventil) 2.5 mg IH Q4HRT PRN PRN Reason: Shortness Of Breath Last Admin: 06/03/18 15:01 Dose: 2.5 mg Documented by: Albuterol/Ipratropium (Duoneb *Not For Prn Use*) 1 ampul IH TIDRT [facility] Last Admin: 06/17/18 09:30 Dose: 1 ampul Documented by: Arformoterol Tartrate (Brovana Nebu) 15 mcg IH Q12HRT [facility] Last Admin: 06/17/18 09:30 Dose: 15 mcg Documented by: Budesonide (Pulmicort) 0.5 mg IH Q12HRT [facility] Last Admin: 06/17/18 09:30 Dose: 0.5 mg Documented by: Clonidine HCl (Catapres) 0.1 mg PO HS [facility] Last Admin: 06/16/18 22:59 Dose: Not Given Documented by: Enoxaparin Sodium (Lovenox) 40 mg SUB-Q QDAY@1000 [facility] Last Admin: 06/17/18 09:25 Dose: 40 mg Documented by: Folic Acid (Folvite) 1 mg PO QDAY [facility] Last Admin: 06/17/18 09:25 Dose: Not Given Documented by: Haloperidol Lactate (Haldol) 5 mg IM Q6H PRN PRN Reason: Acute Psychosis Last Admin: 06/17/18 02:45 Dose: 5 mg Documented by: Hydralazine HCl (Apresoline) 10 mg IV Q4H PRN PRN Reason: BP >160/100 Last Admin: 06/09/18 14:26 Dose: 10 mg Documented by: Ceftriaxone Sodium (Rocephin/Ns 1 Gm/50 Ml) 1 gm in 50 mls @ 100 mls/hr IV Q24HR [facility]; Protocol Last Admin: 06/17/18 09:24 Dose: 100 mls/hr Documented by: Dextrose/Sodium Chloride (D5ns 0.2%) 1,000 mls @ 75 mls/hr IV DIRECT [facility] Last Admin: 06/17/18 01:25 Dose: 75 mls/hr Documented by: Lorazepam (Ativan) 2 mg PO Q1H PRN PRN Reason: CIWA-Ar 8-15 Lorazepam (Ativan) 4 mg IV Q1H PRN PRN Reason: CIWA-Ar 16-25 Last Admin: 06/10/18 17:15 Dose: 2 mg Documented by: Lorazepam (Ativan) 4 mg IV Q15MIN PRN PRN Reason: CIWA-Ar >25 Melatonin (Melatonin) 5 mg PO QHS PRN PRN Reason: Sleep Last Admin: 06/10/18 23:30 Dose: 5 mg Documented by: Methylprednisolone Sodium Succinate (Solu-Medrol) 40 mg IV DAILY [facility] Last Admin: 06/17/18 09:24 Dose: 40 mg Documented by: Metoprolol Tartrate (Lopressor) 50 mg PO BID [facility] Last Admin: 06/17/18 09:25 Dose: Not Given Documented by: Mirtazapine (Remeron) 15 mg PO QHS [facility] Last Admin: 06/16/18 23:00 Dose: Not Given Documented by: Multivitamins (Centrum Liq) 5 ml PO QDAY [facility] Last Admin: 06/17/18 09:26 Dose: Not Given Documented by: Ondansetron HCl (Zofran) 4 mg IV Q8H PRN PRN Reason: Nausea And Vomiting Pantoprazole Sodium (Protonix) 40 mg PO DAILY [facility] Last Admin: 06/17/18 09:26 Dose: Not Given Documented by: Sodium Chloride (Sodium Chloride Flush Syringe 10 Ml) 10 ml IV BID [facility] Last Admin: 06/17/18 09:26 Dose: 10 ml Documented by: Sodium Chloride (Sodium Chloride Flush Syringe 10 Ml) 10 ml IV PRN PRN PRN Reason: LINE FLUSH Tamsulosin HCl (Flomax) 0.4 mg PO QDAY [facility] Last Admin: 06/17/18 09:25 Dose: Not Given Documented by: Thiamine HCl (Vitamin B-1) 100 mg PO QDAY [facility] Last Admin: 06/17/18 09:26 Dose: Not Given Documented by: medications reviewed/updated as required Review of Systems - Review of Systems ROS unobtainable: due to mental status Exam - Constitutional Vital Signs: Temp Pulse Resp BP Pulse Ox 98.3 F 87 20 109/67 99 06/17/18 07:26 06/17/18 09:55 06/17/18 09:55 06/17/18 07:26 06/17/18 09:30 General appearance: no acute distress, other (confused) - Respiratory Respiratory: bilateral: diminished - Cardiovascular Rhythm: regular - Gastrointestinal General gastrointestinal: Present: soft, non-distended, normal bowel sounds - Labs CBC & Chem 7: 06/17/18 08:21 06/17/18 08:21 Lab Results: Laboratory Results - last 24 hr 06/16/18 06/16/18 06/17/18 17:33 17:33 08:21 WBC 11.4 H RBC 3.79 Hgb 12.4 Hct 37.2 MCV 98 H MCH 33 H MCHC 33 RDW 13.7 Plt Count 107 L Sodium Potassium Chloride Carbon Dioxide Anion Gap BUN Creatinine Estimated GFR BUN/Creatinine Ratio Glucose Calcium Magnesium Total Bilirubin AST ALT Alkaline Phosphatase Ammonia 55.0 Total Protein Albumin Albumin/Globulin Ratio Vitamin B12 697.5 06/17/18 08:21 WBC RBC Hgb Hct MCV MCH MCHC RDW Plt Count Sodium 146 H Potassium 3.7 Chloride 109.2 H Carbon Dioxide 27 Anion Gap 14 BUN 47 H Creatinine 0.9 Estimated GFR > 60 BUN/Creatinine Ratio 52 Glucose 109 H Calcium 8.3 L Magnesium 2.60 H Total Bilirubin 1.00 AST 26 ALT 30 Alkaline Phosphatase 49 Ammonia Total Protein 5.2 L Albumin 2.9 L Albumin/Globulin Ratio 1.3 Vitamin B12 Assessment and Plan 1.PEG placement -failed LOCKET MAKER eval yesterday -called and spoke with patient's son (Tom Aguilar [phone]) on the phone re garding option of PEG placement to include nature of procedure, details of technique, benefits, purpose, and risks including perforation, bleeding, infection, and independent risk of anesthesia. After consideration, he is in agreement with proceeding with PEG placement. -will schedule for EGD with PEG tomorrow -Keep NPO after MN -INR in am -hold am dose of lovenox -continue supportive care -electrolyte management per primary team -will follow 2.acute metabolic enceophalopathy 3.alcohol dependence with withdrawal -LFTs WNL, plt 107 (WNL on admission) 4.hyponatremia 5.UTI suspected-on antibiotics 6.Afib with RVR-now SR 7.acute hypoxic respiratory failure with COPD exacerbation-O2 sat 99% on NC 8.dementia 9.severe malnutrition <BERNA VILLEGAS R - Last Filed: 06/17/18 15:23> Medications and Allergies Active Meds: Active Medications Acetaminophen (Tylenol) 650 mg PO Q4H PRN PRN Reason: Pain MILD(1-3)/Fever >100.5/CHANCE Last Admin: 06/13/18 03:03 Dose: 650 mg Documented by: Acetaminophen (Tylenol) 650 mg SC Q4H PRN PRN Reason: Non Cardiac Pain or Temp>100.5 Last Admin: 06/16/18 15:14 Dose: 650 mg Documented by: Albuterol (Proventil) 2.5 mg IH Q4HRT PRN PRN Reason: Shortness Of Breath Last Admin: 06/03/18 15:01 Dose: 2.5 mg Documented by: Albuterol/Ipratropium (Duoneb *Not For Prn Use*) 1 ampul IH TIDRT [facility] Last Admin: 06/17/18 14:15 Dose: 1 ampul Documented by: Arformoterol Tartrate (Brovana Nebu) 15 mcg IH Q12HRT [facility] Last Admin: 06/17/18 09:30 Dose: 15 mcg Documented by: Budesonide (Pulmicort) 0.5 mg IH Q12HRT [facility] Last Admin: 06/17/18 09:30 Dose: 0.5 mg Documented by: Clonidine HCl (Catapres) 0.1 mg PO HS [facility] Last Admin: 06/16/18 22:59 Dose: Not Given Documented by: Enoxaparin Sodium (Lovenox) 40 mg SUB-Q QDAY@1000 [facility] Last Admin: 06/17/18 09:25 Dose: 40 mg Documented by: Folic Acid (Folvite) 1 mg PO QDAY [facility] Last Admin: 06/17/18 09:25 Dose: Not Given Documented by: Haloperidol Lactate (Haldol) 5 mg IM Q6H PRN PRN Reason: Acute Psychosis Last Admin: 06/17/18 13:20 Dose: 5 mg Documented by: Hydralazine HCl (Apresoline) 10 mg IV Q4H PRN PRN Reason: BP >160/100 Last Admin: 06/09/18 14:26 Dose: 10 mg Documented by: Ceftriaxone Sodium (Rocephin/Ns 1 Gm/50 Ml) 1 gm in 50 mls @ 100 mls/hr IV Q24HR [facility]; Protocol Last Admin: 06/17/18 09:24 Dose: 100 mls/hr Documented by: Dextrose (D5w) 1,000 mls @ 100 mls/hr IV DIRECT [facility] Last Admin: 06/17/18 13:14 Dose: 100 mls/hr Documented by: Cefazolin Sodium (Ancef/Sterile Water 2 Gm/20 Ml) 2 gm in 20 mls @ 80 mls/hr IV PREOP NR; Protocol Sodium Chloride (Nacl 0.9% 1000 Ml) 1,000 mls @ 50 mls/hr IV DIRECT [facility] Lorazepam (Ativan) 2 mg PO Q1H PRN PRN Reason: CIWA-Ar 8-15 Lorazepam (Ativan) 4 mg IV Q1H PRN PRN Reason: CIWA-Ar 16-25 Last Admin: 06/10/18 17:15 Dose: 2 mg Documented by: Lorazepam (Ativan) 4 mg IV Q15MIN PRN PRN Reason: CIWA-Ar >25 Melatonin (Melatonin) 5 mg PO QHS PRN PRN Reason: Sleep Last Admin: 06/10/18 23:30 Dose: 5 mg Documented by: Methylprednisolone Sodium Succinate (Solu-Medrol) 40 mg IV DAILY [facility] Last Admin: 06/17/18 09:24 Dose: 40 mg Documented by: Metoprolol Tartrate (Lopressor) 50 mg PO BID [facility] Last Admin: 06/17/18 09:25 Dose: Not Given Documented by: Mirtazapine (Remeron) 15 mg PO QHS [facility] Last Admin: 06/16/18 23:00 Dose: Not Given Documented by: Multivitamins (Centrum Liq) 5 ml PO QDAY [facility] Last Admin: 06/17/18 09:26 Dose: Not Given Documented by: Ondansetron HCl (Zofran) 4 mg IV Q8H PRN PRN Reason: Nausea And Vomiting Pantoprazole Sodium (Protonix) 40 mg PO DAILY [facility] Last Admin: 06/17/18 09:26 Dose: Not Given Documented by: Sodium Chloride (Sodium Chloride Flush Syringe 10 Ml) 10 ml IV BID [facility] Last Admin: 06/17/18 09:26 Dose: 10 ml Documented by: Sodium Chloride (Sodium Chloride Flush Syringe 10 Ml) 10 ml IV PRN PRN PRN Reason: LINE FLUSH Tamsulosin HCl (Flomax) 0.4 mg PO QDAY [facility] Last Admin: 06/17/18 09:25 Dose: Not Given Documented by: Thiamine HCl (Vitamin B-1) 100 mg PO QDAY [facility] Last Admin: 06/17/18 09:26 Dose: Not Given Documented by: Exam - Constitutional Vital Signs: Temp Pulse Resp BP Pulse Ox 98.3 F 110 H 20 109/67 99 06/17/18 07:26 06/17/18 14:32 06/17/18 14:32 06/17/18 07:26 06/17/18 09:30 - Labs CBC & Chem 7: 06/17/18 08:21 06/17/18 08:21 Lab Results: Laboratory Results - last 24 hr 06/16/18 06/16/18 06/16/18 17:33 17:33 17:33 WBC RBC Hgb Hct MCV MCH MCHC RDW Plt Count Sodium Potassium Chloride Carbon Dioxide Anion Gap BUN Creatinine Estimated GFR BUN/Creatinine Ratio Glucose Calcium Magnesium Total Bilirubin AST ALT Alkaline Phosphatase Ammonia 55.0 Total Protein Albumin Albumin/Globulin Ratio Vitamin B12 697.5 RPR Nonreactive 06/17/18 06/17/18 08:21 08:21 WBC 11.4 H RBC 3.79 Hgb 12.4 Hct 37.2 MCV 98 H MCH 33 H MCHC 33 RDW 13.7 Plt Count 107 L Sodium 146 H Potassium 3.7 Chloride 109.2 H Carbon Dioxide 27 Anion Gap 14 BUN 47 H Creatinine 0.9 Estimated GFR > 60 BUN/Creatinine Ratio 52 Glucose 109 H Calcium 8.3 L Magnesium 2.60 H Total Bilirubin 1.00 AST 26 ALT 30 Alkaline Phosphatase 49 Ammonia Total Protein 5.2 L Albumin 2.9 L Albumin/Globulin Ratio 1.3 Vitamin B12 RPR Assessment and Plan Pt seen and examined. Chart reviewed. On discussing situation with patient, he refused PEG tube. Discussed alternative of due to malnutrition or to aspiration pneumonia, and pt stated "let me think about it." Nurse in room. Discussed with pt's son, Cachorro. He stated he was driving up from [place], and would talk with him, and decide on nutritional support. Pt also refusing Dobhoff for now.
--- NOTE | 2018-06-17 12:13 | Progress Note ---
Assessment and Plan Assessment and plan: 72-year-old man with history of alcoholism and likely dementia which has not been diagnosed with suspected by family. The patient's and he was dependent on her past the week 2 weeks prior. He was home by himself, is apparently drinking heavily not eating and not. He had been confused per his son and neighbors. His son and asked him to go to the ER , then he called the EMS. The patient was found to have a very low sodium, agitated and confused. CT head no acute findings Chest x-ray no acute findings -The patient is on [facility] protocol for alcohol withdrawal. He is now out of the window for alcohol withdrawal -He was counseled on tobacco cessation, time spent greater than 10 minutes -The patient was initially very hyponatremic when he came to the hospital, he r eceived saline IV, salt tabs and his potassium was replaced. -The patient developed urinary retention, therefore [place] tube was placed -He received a course of steroids and nebulizers for COPD exacerbation, now improved. -She had very poor by mouth intake, he was only taking sips of draining some ba rely consuming any food. 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 -cont abx for UTI- e fecalis, -dc to SNF when improved Diagnoses Afib with RVR, PAF hypercoaguable state Alcohol dependence and withdrawal Acute metabolic encephalopathy Severe hyponatremia, now resolved mild hypernatremia- d5w drip Hypercholesteremia Beer potomania severe malnutrition COPD exacerbation Tobacco abuse, current every day smoker Acute hypoxic respiratory failure Dementia severe malnutrition Sepsis UTI History Interval history: Patient has been confused, he is less agitated Review of systems Constitutional: No fevers, no malaise, no joint pains CVS: No chest pain, no orthopnea, no dyspnea on exertion, no pedal edema GI: No abdominal pain, no diarrhea, no vomiting, no constipation has not been eating Respiratory: no sob or cough Hospitalist Physical - Physical exam Narrative exam: General.: , nontoxic HEENT: Moist mucous membranes, extraocular muscles intact, no lymphadenopathy Neck: supple Cardiac: S1-S2 heard Lungs: CTA Abdomen: soft , nontender, nondistended, bowel sounds positive Extremities: no edema clubbing or cyanosis Skin: no rash or lesions Neurologic: Confused, moves all extremities Psych: calm, - Constitutional Vitals: Temp Pulse Resp BP Pulse Ox 98.3 F 87 20 109/67 99 06/17/18 07:26 06/17/18 09:55 06/17/18 09:55 06/17/18 07:26 06/17/18 09:30 General appearance: Present: no acute distress Results - Labs CBC & Chem 7: 06/17/18 08:21 06/17/18 08:21 Labs: Laboratory Last Values WBC 11.4 K/mm3 (4.5-11.0) H 06/17/18 08:21 RBC 3.79 M/mm3 (3.65-5.03) 06/17/18 08:21 Hgb 12.4 gm/dl (11.8-15.2) 06/17/18 08:21 Hct 37.2 % (35.5-45.6) 06/17/18 08:21 MCV 98 fl (84-94) H 06/17/18 08:21 MCH 33 pg (28-32) H 06/17/18 08:21 MCHC 33 % (32-34) 06/17/18 08:21 RDW 13.7 % (13.2-15.2) 06/17/18 08:21 Plt Count 107 K/mm3 (140-440) L 06/17/18 08:21 [place] % (Auto) Insurance Operations Rep 06/02/18 21:25 Add Manual Diff Complete 06/04/18 09:47 Total Counted 100 06/04/18 09:47 Seg Neuts % (Manual) 92.0 % (40.0-70.0) H 06/04/18 09:47 Band Neutrophils % 0 % 06/04/18 09:47 Lymphocytes % (Manual) 5.0 % (13.4-35.0) L 06/04/18 09:47 Reactive Lymphs % (Man) 0 % 06/04/18 09:47 Monocytes % (Manual) 3.0 % (0.0-7.3) 06/04/18 09:47 Eosinophils % (Manual) 0 % (0.0-4.3) 06/04/18 09:47 Basophils % (Manual) 0 % (0.0-1.8) 06/04/18 09:47 Metamyelocytes % 0 % 06/04/18 09:47 Myelocytes % 0 % 06/04/18 09:47 Promyelocytes % 0 % 06/04/18 09:47 Blast Cells % 0 % 06/04/18 09:47 Nucleated RBC % Not Reportable 06/04/18 09:47 Seg Neutrophils # Man 4.9 K/mm3 (1.8-7.7) 06/04/18 09:47 Band Neutrophils # 0.0 K/mm3 06/04/18 09:47 Lymphocytes # (Manual) 0.3 K/mm3 (1.2-5.4) L 06/04/18 09:47 Abs React Lymphs (Man) 0.0 K/mm3 06/04/18 09:47 Monocytes # (Manual) 0.2 K/mm3 (0.0-0.8) 06/04/18 09:47 Eosinophils # (Manual) 0.0 K/mm3 (0.0-0.4) 06/04/18 09:47 Basophils # (Manual) 0.0 K/mm3 (0.0-0.1) 06/04/18 09:47 Metamyelocytes # 0.0 K/mm3 06/04/18 09:47 Myelocytes # 0.0 K/mm3 06/04/18 09:47 Promyelocytes # 0.0 K/mm3 06/04/18 09:47 Blast Cells # 0.0 K/mm3 06/04/18 09:47 WBC Morphology Not Reportable 06/04/18 09:47 Hypersegmented Neuts Not Reportable 06/04/18 09:47 Hyposegmented Neuts Not Reportable 06/04/18 09:47 Hypogranular Neuts Not Reportable 06/04/18 09:47 Smudge Cells Not Reportable 06/04/18 09:47 Toxic Granulation 1+ 06/04/18 09:47 Toxic Vacuolation Not Reportable 06/04/18 09:47 Dohle Bodies Not Reportable 06/04/18 09:47 Pelger-Huet Anomaly Not Reportable 06/04/18 09:47 Dashawn Rods Not Reportable 06/04/18 09:47 Platelet Estimate Consistent w auto 06/04/18 09:47 Clumped Platelets Not Reportable 06/04/18 09:47 Plt Clumps, EDTA Not Reportable 06/04/18 09:47 Large Platelets Not Reportable 06/04/18 09:47 Giant Platelets Not Reportable 06/04/18 09:47 Platelet Satelliting Not Reportable 06/04/18 09:47 Plt Morphology Comment Not Reportable 06/04/18 09:47 RBC Morphology Normal 06/04/18 09:47 Dimorphic RBCs Not Reportable 06/04/18 09:47 Polychromasia Not Reportable 06/04/18 09:47 Hypochromasia Not Reportable 06/04/18 09:47 Poikilocytosis Not Reportable 06/04/18 09:47 Anisocytosis Not Reportable 06/04/18 09:47 Microcytosis Not Reportable 06/04/18 09:47 Macrocytosis Not Reportable 06/04/18 09:47 Spherocytes Not Reportable 06/04/18 09:47 Pappenheimer Bodies Not Reportable 06/04/18 09:47 Sickle Cells Not Reportable 06/04/18 09:47 Target Cells Not Reportable 06/04/18 09:47 Tear Drop Cells Not Reportable 06/04/18 09:47 Ovalocytes Not Reportable 06/04/18 09:47 Helmet Cells Not Reportable 06/04/18 09:47 [place] Bodies Not Reportable 06/04/18 09:47 [place] Rings Not Reportable 06/04/18 09:47 [place] Cells Not Reportable 06/04/18 09:47 Bite Cells Not Reportable 06/04/18 09:47 Crenated Cell Not Reportable 06/04/18 09:47 Elliptocytes Not Reportable 06/04/18 09:47 Acanthocytes (Spur) Not Reportable 06/04/18 09:47 Rouleaux Not Reportable 06/04/18 09:47 Hemoglobin C Crystals Not Reportable 06/04/18 09:47 Schistocytes Not Reportable 06/04/18 09:47 Malaria parasites Not Reportable 06/04/18 09:47 Rajesh Bodies Not Reportable 06/04/18 09:47 Hem Pathologist Commnt No 06/04/18 09:47 Sodium 146 mmol/L (137-145) H 06/17/18 08:21 Potassium 3.7 mmol/L (3.6-5.0) 06/17/18 08:21 Chloride 109.2 mmol/L (98-107) H 06/17/18 08:21 Carbon Dioxide 27 mmol/L (22-30) 06/17/18 08:21 Anion Gap 14 mmol/L 06/17/18 08:21 BUN 47 mg/dL (9-20) H 06/17/18 08:21 Creatinine 0.9 mg/dL (0.8-1.5) 06/17/18 08:21 Estimated GFR > 60 ml/min 06/17/18 08:21 BUN/Creatinine Ratio 52 % 06/17/18 08:21 Glucose 109 mg/dL (75-100) H 06/17/18 08:21 POC Glucose 93 (70-105) 06/02/18 21:18 Osmolality 249 Mosm/kg 06/03/18 20:45 Calcium 8.3 mg/dL (8.4-10.2) L 06/17/18 08:21 Phosphorus 3.90 mg/dL (2.5-4.5) 06/04/18 09:47 Magnesium 2.60 mg/dL (1.7-2.3) H 06/17/18 08:21 Total Bilirubin 1.00 mg/dL (0.1-1.2) 06/17/18 08:21 Direct Bilirubin < 0.2 mg/dL (0-0.2) 06/04/18 04:39 Indirect Bilirubin 0.2 mg/dL 06/04/18 04:39 AST 26 units/L (5-40) 06/17/18 08:21 ALT 30 units/L (7-56) 06/17/18 08:21 Alkaline Phosphatase 49 units/L (35-129) 06/17/18 08:21 Ammonia 55.0 umol/L (25-60) 06/16/18 17:33 Total Creatine Kinase 420 units/L (55-170) H 06/02/18 21:25 Troponin T < 0.010 ng/mL (0.00-0.029) 06/02/18 21:25 NT-Pro-B Natriuret Pep 379.8 pg/mL (0-900) 06/02/18 21:25 Total Protein 5.2 g/dL (6.3-8.2) L 06/17/18 08:21 Albumin 2.9 g/dL (3.9-5) L 06/17/18 08:21 Albumin/Globulin Ratio 1.3 % 06/17/18 08:21 Vitamin B12 697.5 pg/mL (211-911) 06/16/18 17:33 TSH 1.100 mlU/mL (0.270-4.200) 06/03/18 20:45 Urine Color Yellow (Yellow) 06/16/18 03:20 Urine Turbidity Cloudy (Clear) 06/16/18 03:20 Urine pH 5.0 (5.0-7.0) 06/16/18 03:20 Ur Specific [place] 1.020 (1.003-1.030) 06/16/18 03:20 Urine Protein <15 mg/dl mg/dL (Negative) 06/16/18 03:20 Urine Glucose (UA) Neg mg/dL (Negative) 06/16/18 03:20 Urine Ketones Neg mg/dL (Negative) 06/16/18 03:20 Urine Blood Sm (Negative) 06/16/18 03:20 Urine Nitrite Neg (Negative) 06/16/18 03:20 Urine Bilirubin Neg (Negative) 06/16/18 03:20 Urine Urobilinogen < 2.0 mg/dL (<2.0) 06/16/18 03:20 Ur Leukocyte Esterase Lg (Negative) 06/16/18 03:20 Urine WBC (Auto) 89.0 /HPF (0.0-6.0) H 06/16/18 03:20 Urine RBC (Auto) 10.0 /HPF (0.0-6.0) 06/16/18 03:20 U Epithel Cells (Auto) 2.0 /HPF (0-13.0) 06/16/18 03:20 Urine Bacteria (Auto) 1+ /HPF (Negative) 06/16/18 03:20 Urine Mucus Few /HPF 06/16/18 03:20 Urine Yeast (Budding) 1+ /HPF 06/16/18 03:20 Urine Osmolality 203 Mosm/kg 06/02/18 22:02 Urine Sodium 20 mmol/L 06/02/18 22:02 Active Medications - Current Medications Current Medications: Generic Name Dose Route Start Last Admin Trade Name Freq PRN Reason Stop Dose Admin Acetaminophen 650 mg 06/03/18 00:05 06/13/18 03:03 Tylenol PO 650 mg Q4H PRN Administration Pain MILD(1-3)/Fever >100.5/CHANCE Acetaminophen 650 mg 06/16/18 15:03 06/16/18 15:14 Tylenol MA 650 mg Q4H PRN Administration Non Cardiac Pain or Temp>100.5 Albuterol 2.5 mg 06/03/18 13:11 06/03/18 15:01 Proventil IH 2.5 mg Q4HRT PRN Administration Shortness Of Breath Albuterol/Ipratropium 1 ampul 06/05/18 20:00 06/17/18 09:30 Duoneb *Not For Prn Use* IH 1 ampul TIDRT CINDA Administration Arformoterol Tartrate 15 mcg 06/03/18 20:00 06/17/18 09:30 Brovana Nebu IH 15 mcg Q12HRT CINDA Administration Budesonide 0.5 mg 06/03/18 20:00 06/17/18 09:30 Pulmicort IH 0.5 mg Q12HRT CINDA Administration Clonidine HCl 0.1 mg 06/11/18 22:00 06/16/18 22:59 Catapres PO Not Given HS CINDA Enoxaparin Sodium 40 mg 06/03/18 10:00 06/17/18 09:25 Lovenox SUB-Q 40 mg QDAY@1000 CINDA Administration Folic Acid 1 mg 06/04/18 10:00 06/17/18 09:25 Folvite PO Not Given QDAY [facility]INDA Haloperidol Lactate 5 mg 06/09/18 09:51 06/17/18 02:45 Haldol IM 5 mg Q6H PRN Administration Acute Psychosis Hydralazine HCl 10 mg 06/06/18 12:10 06/09/18 14:26 Apresoline IV 10 mg Q4H PRN Administration BP >160/100 Ceftriaxone Sodium 1 gm in 50 mls @ 100 mls/hr 06/13/18 12:00 06/17/18 09:24 Rocephin/Ns 1 Gm/50 Ml IV 100 mls/hr Q24HR CINDA Administration Protocol Dextrose/Sodium Chloride 1,000 mls @ 75 mls/hr 06/14/18 14:00 06/17/18 01:25 D5ns 0.2% IV 75 mls/hr DIRECT CINDA Administration Dextrose 1,000 mls @ 100 mls/hr 06/17/18 13:00 D5w IV DIRECT CINDA Lorazepam 2 mg 06/03/18 14:00 Ativan PO Q1H PRN CIWA-Ar 8-15 Lorazepam 4 mg 06/03/18 14:00 06/10/18 17:15 Ativan IV 2 mg Q1H PRN Administration CIWA-Ar 16-25 Lorazepam 4 mg 06/03/18 14:00 Ativan IV Q15MIN PRN CIWA-Ar >25 Melatonin 5 mg 06/07/18 19:41 06/10/18 23:30 Melatonin PO 5 mg QHS PRN Administration Sleep Methylprednisolone Sodium Succinate 40 mg 06/16/18 10:00 06/17/18 09:24 Solu-Medrol IV 40 mg DAILY CINDA Administration Metoprolol Tartrate 50 mg 06/11/18 10:00 06/17/18 09:25 Lopressor PO Not Given BID [facility] Mirtazapine 15 mg 06/10/18 22:00 06/16/18 23:00 Remeron PO Not Given QHS [facility] Multivitamins 5 ml 06/04/18 10:00 06/17/18 09:26 Centrum Liq PO Not Given QDAY [facility] Ondansetron HCl 4 mg 06/03/18 00:05 Zofran IV Q8H PRN Nausea And Vomiting Pantoprazole Sodium 40 mg 06/06/18 10:00 06/17/18 09:26 Protonix PO Not Given DAILY [facility] Sodium Chloride 10 ml 06/03/18 10:00 06/17/18 09:26 Sodium Chloride Flush Syringe 10 Ml IV 10 ml BID CINDA Administration Sodium Chloride 10 ml 06/03/18 00:05 Sodium Chloride Flush Syringe 10 Ml IV PRN PRN LINE FLUSH Tamsulosin HCl 0.4 mg 06/03/18 12:00 06/17/18 09:25 Flomax PO Not Given QDAY [facility] Thiamine HCl 100 mg 06/04/18 10:00 06/17/18 09:26 Vitamin B-1 PO Not Given QDAY [facility] Nutrition/Malnutrition Assess - Dietary Evaluation Nutrition/Malnutrition Findings: Nutrition Notes Start: 06/09/18 14:29 Freq: Status: Active Protocol: Document 06/17/18 11:45 TW (Rec: 06/17/18 11:56 TW [id number]) Co-Sign 06/17/18 11:45 LP Nutrition Notes Initial or Follow up Reassessment Current Diagnosis COPD,Hypertension,Heart Failure Other Pertinent Diagnosis Alcoholic Hx, AMS, UTI, Dementia, Metabolic encephalopathy Current Diet NPO Labs/Tests Reviewed Pertinent Medications Solu-Medrol Height 5 ft 10 in Weight 57.3 [address] [place] Body Weight (kg) 75.45 BMI 18.1 Subjective/Other Information Per RN, pt failed swallow evaluation and RN will discuss with GI the POC and need for a PEG tube. Pt has not taken anything in by mouth today. Burn Absent Trauma Absent #1 Nutrition Diagnosis Inadequate oral intake Diagnosis Progress(for reassessment Continues documentation) Is patient on ventilator? No Is Patient Ambulatory and/or Out of Bed No REE-([facility]-confined to bed) 1595.424 Kcal/Kg value to use for calculation 32 Approximate Energy Requirements Using 1834 kcal/Kg Additional Notes Protein Needs: 61-73g (1-1.2g/ kg) Fluid Needs: 1 ml/kcal Nutrition Intervention Change Diet Order: TF when medically feasible Nutrition Support: Osmolite 1.5 at 55 ml/hr Water Flush 150ml q4h. Kcal 1,980 Protein (gm) 82 Fluid (mL) 1,005 Goal #1 TF initiation Anticipated Discharge Needs: Unable to determine at this time Follow-Up By: 06/20/18 Additional Comments F/U for POC and TF initiation
--- NOTE | 2018-06-17 12:41 | XRay Report ---
AP CHEST: HISTORY: Fever AP view of the chest demonstrates a normal mediastinal and cardiac contour with clear lungs and normal bony and soft tissue structures. IMPRESSION: Unremarkable AP chest.
[2018-06-17] MEDS: D5W 1,000 ML IV SCH (13:14)
[2018-06-17] MEDS: ATIVAN IV PRN (15:59)
--- NOTE | 2018-06-17 16:02 | Consultation ---
History of Present Illness - Reason for Consult Consult date: 06/17/18 new onset fever Requesting physician: RAY JACKSON - History of Present Illness 72 y/o male with history of alcoholism,tobacco use, COPD and dementia admitted on 06/02/2018 due to AMS/confusion. His recently and his health has been declining every since with increase alcohol consumption. Patient is confused and mildly agitated unable to provide a history. History taken from review of records. In the ED, initial vital signs were all normal. WBC 5.5. UA showed wbc 24, large LE. Uirne culture grew multiple sp <10. Na 109, creat 0.9. CXR negative. CT head negative. A zuniga was placed and then removed. By 06/13/2018 noted temp 100.5, WBC went tp to 12.6. Repeat UA showed wbc 89, large LE. Urine culture 06/16/2018 10-100K Enterococcus. Review of Systems: unable to obtain. Past History Past Medical History: other (as per HPI) Past Surgical History: No surgical history Social history: no significant social history, , Lives alone, alcohol abuse Family history: no significant family history Medications and Allergies Allergies Allergy/AdvReac Type Severity Reaction Status Date / Time diphenhydramine HCl Allergy Unknown Verified 09/24/14 11:56 [From [facility]] Home Medications Medication Instructions Recorded Confirmed Last Taken Type Albuterol *Only Ed* [Proventil 2.5 mg IH Q4HRT PRN #1 nebu 10/03/14 06/03/18 Unknown Rx 0.5% NEBS] Folic Acid [Folvite] 1 mg PO QDAY #30 tablet 10/03/14 06/03/18 Unknown Rx Furosemide [Lasix TAB] 20 mg PO QDAY #30 tablet 10/03/14 06/03/18 Unknown Rx Metoprolol [Lopressor TAB] 12.5 mg PO BID #60 tablet 10/03/14 06/03/18 Unknown Rx Multivitamins Liq [Multiple 5 ml PO QDAY 30 Days oral.liqd 10/03/14 06/03/18 Unknown Rx Vitamin Liq (Theragran)] Thiamine [Vitamin B-1] 100 mg PO QDAY #30 tablet 10/03/14 06/03/18 Unknown Rx Active Meds: Active Medications Acetaminophen (Tylenol) 650 mg PO Q4H PRN PRN Reason: Pain MILD(1-3)/Fever >100.5/CHANCE Last Admin: 06/13/18 03:03 Dose: 650 mg Documented by: Acetaminophen (Tylenol) 650 mg AK Q4H PRN PRN Reason: Non Cardiac Pain or Temp>100.5 Last Admin: 06/16/18 15:14 Dose: 650 mg Documented by: Albuterol (Proventil) 2.5 mg IH Q4HRT PRN PRN Reason: Shortness Of Breath Last Admin: 06/03/18 15:01 Dose: 2.5 mg Documented by: Albuterol/Ipratropium (Duoneb *Not For Prn Use*) 1 ampul IH TIDRT [facility] Last Admin: 06/17/18 14:15 Dose: 1 ampul Documented by: Arformoterol Tartrate (Brovana Nebu) 15 mcg IH Q12HRT [facility] Last Admin: 06/17/18 09:30 Dose: 15 mcg Documented by: Budesonide (Pulmicort) 0.5 mg IH Q12HRT [facility] Last Admin: 06/17/18 09:30 Dose: 0.5 mg Documented by: Clonidine HCl (Catapres) 0.1 mg PO HS [facility] Last Admin: 06/16/18 22:59 Dose: Not Given Documented by: Enoxaparin Sodium (Lovenox) 40 mg SUB-Q QDAY@1000 [facility]IN[facility] Last Admin: 06/17/18 09:25 Dose: 40 mg Documented by: Folic Acid (Folvite) 1 mg PO QDAY [facility] Last Admin: 06/17/18 09:25 Dose: Not Given Documented by: Haloperidol Lactate (Haldol) 5 mg IM Q6H PRN PRN Reason: Acute Psychosis Last Admin: 06/17/18 13:20 Dose: 5 mg Documented by: Hydralazine HCl (Apresoline) 10 mg IV Q4H PRN PRN Reason: BP >160/100 Last Admin: 06/09/18 14:26 Dose: 10 mg Documented by: Ceftriaxone Sodium (Rocephin/Ns 1 Gm/50 Ml) 1 gm in 50 mls @ 100 mls/hr IV Q24HR [facility]; Protocol Last Admin: 06/17/18 09:24 Dose: 100 mls/hr Documented by: Dextrose (D5w) 1,000 mls @ 100 mls/hr IV DIRECT [facility] Last Admin: 06/17/18 13:14 Dose: 100 mls/hr Documented by: Cefazolin Sodium (Ancef/Sterile Water 2 Gm/20 Ml) 2 gm in 20 mls @ 80 mls/hr IV PREOP NR; Protocol Stop: 06/18/18 21:00 Sodium Chloride (Nacl 0.9% 1000 Ml) 1,000 mls @ 50 mls/hr IV DIRECT [facility]INDA Stop: 06/18/18 21:00 Lorazepam (Ativan) 2 mg PO Q1H PRN PRN Reason: CIWA-Ar 8-15 Lorazepam (Ativan) 4 mg IV Q1H PRN PRN Reason: CIWA-Ar 16-25 Last Admin: 06/10/18 17:15 Dose: 2 mg Documented by: Lorazepam (Ativan) 4 mg IV Q15MIN PRN PRN Reason: CIWA-Ar >25 Melatonin (Melatonin) 5 mg PO QHS PRN PRN Reason: Sleep Last Admin: 06/10/18 23:30 Dose: 5 mg Documented by: Methylprednisolone Sodium Succinate (Solu-Medrol) 40 mg IV DAILY [facility] Last Admin: 06/17/18 09:24 Dose: 40 mg Documented by: Metoprolol Tartrate (Lopressor) 50 mg PO BID [facility] Last Admin: 06/17/18 09:25 Dose: Not Given Documented by: Mirtazapine (Remeron) 15 mg PO QHS [facility] Last Admin: 06/16/18 23:00 Dose: Not Given Documented by: Multivitamins (Centrum Liq) 5 ml PO QDAY [facility] Last Admin: 06/17/18 09:26 Dose: Not Given Documented by: Ondansetron HCl (Zofran) 4 mg IV Q8H PRN PRN Reason: Nausea And Vomiting Pantoprazole Sodium (Protonix) 40 mg PO DAILY [facility] Last Admin: 06/17/18 09:26 Dose: Not Given Documented by: Sodium Chloride (Sodium Chloride Flush Syringe 10 Ml) 10 ml IV BID [facility] Last Admin: 06/17/18 09:26 Dose: 10 ml Documented by: Sodium Chloride (Sodium Chloride Flush Syringe 10 Ml) 10 ml IV PRN PRN PRN Reason: LINE FLUSH Tamsulosin HCl (Flomax) 0.4 mg PO QDAY [facility] Last Admin: 06/17/18 09:25 Dose: Not Given Documented by: Thiamine HCl (Vitamin B-1) 100 mg PO QDAY [facility] Last Admin: 06/17/18 09:26 Dose: Not Given Documented by: Physical Examination - Physical Exam Narrative exam: General appearance: somnolent, agitated, unintelligible speech Eyes: anicteric sclerae, moist conjunctivae; no lid-lag; PERRLA HENT: Atraumatic; oropharynx limited Neck: Trachea midline; supple, no thyromegaly or lymphadenopathy Lungs: CTA CV: tachycardic Abdomen: Soft, +suprapubic tenderness Extremities: No peripheral edema or extremity lymphadenopathy Skin: Normal temperature, turgor and texture; no rash, ulcers or subcutaneous nodules Psych: agitated Neuro: alert agitated no follows commands - Constitutional Vitals: Vital Signs Temp Pulse Resp BP Pulse Ox 98.3 F 110 H 20 109/67 99 06/17/18 07:26 06/17/18 14:32 06/17/18 14:32 06/17/18 07:26 06/17/18 09:30 Temperature -Last 24 Hours Temperature 98.3 F Temperature 98.1 F Temperature 98.6 F Results - Labs CBC & Chem 7: 06/17/18 08:21 06/17/18 08:21 Labs: Abnormal lab results 06/17/18 06/17/18 Range/Units 08:21 08:21 WBC 11.4 H (4.5-11.0) K/mm3 MCV 98 H (84-94) fl MCH 33 H (28-32) pg Plt Count 107 L (140-440) K/mm3 Sodium 146 H (137-145) mmol/L Chloride 109.2 H (98-107) mmol/L BUN 47 H (9-20) mg/dL Glucose 109 H (75-100) mg/dL Calcium 8.3 L (8.4-10.2) mg/dL Magnesium 2.60 H (1.7-2.3) mg/dL Total Protein 5.2 L (6.3-8.2) g/dL Albumin 2.9 L (3.9-5) g/dL Assessment and Plan Cultures: Blood culture 06/13/2018 no growth Urine culture grew multiple sp <10 Urine culture 06/16/2018 10-100K Enterococcus. Assessment: 72 y/o male with history of alcoholism,tobacco use, COPD and dementia admitted on 06/02/2018 due to AMS/confusion: 1) Sepsis: NOT Present on admission, manifested by fever, tachycardia on 06/13/2018. Etiology most likely UTI. CXR negative. Blood culture 06/13/2018 no growth. 2) UTI: mild UTI present on admission, however worsening. UA showed wbc 24, large LE. Urine culture grew multiple sp <10. A zuniga was placed and then removed. Repeat UA showed wbc 89, large LE. Urine culture 06/16/2018 10-100K Ent erococcus. 3) Acute on chronic encephalopathy: multifactorial- dementia, ETOH, hyponatremia and UTI. 4) Acute urinary retention: bladder scan 999 cc now. 5) Hyponatremia: initial Na 109, better Recommendations: - follow-up blood cultures, urine culture - Kidney and Bladder US - urinary retention informed Dr Cooney - stop ceftriaxone (does not cover Enterococus) - start unasyn for now - if fever continues repeat blood cultures Will follow. Catherine Varghese MD Infectious Diseases [facility] M [phone] O [phone]
[2018-06-17] MEDS: UNASYN/NS 3 GM/100 ML 3 GM/100 ML BAG IV SCH (20:53)
--- NOTE | 2018-06-17 21:26 | Ultrasound Report ---
PROCEDURE: US ABDOMEN COMPLETE HISTORY: check kidney and bladder and liver FINDINGS: Real-time ultrasound of the abdomen was performed. The pancreas is not well-seen. The aorta measures 3.0 cm approximately. The distal aorta is not seen. The inferior vena cava is patent. There is no evidence of gallstones or cholecystitis. The common duct measures 1.1 cm which is within normal limits. The liver appears normal in size and echotexture. The spleen was not seen. The right kidney measures 12.3 x 4.9 x 6.1 cm and the left kidney 11.3 x 4.8 x 4.4 cm. There is no ev idence of hydronephrosis. The urinary bladder appears distended, but smooth in contour. Neither ureteral jet was identified. IMPRESSION: Limited examination of the abdomen due to bowel gas and poor acoustic windows No evidence of gallstones or cholecystitis Mild dilation of proximal abdominal aorta. The distal aorta was not seen This document is electronically signed by Serjio Villagran MD., June 17 2018 09:24:55 PM ET
[2018-06-17] MEDS: REMERON PO SCH (23:38)
[2018-06-17] MEDS: CATAPRES PO SCH (23:38)
[2018-06-18] MEDS: UNASYN/NS 3 GM/100 ML 3 GM/100 ML BAG IV SCH ×5 (01:24→23:42)
[2018-06-18] MEDS: D5W 1,000 ML IV SCH ×2 (01:24→15:59)
[2018-06-18 05:31] LABS: INR 1.26 (0.87-1.13)
[2018-06-18] MEDS ORDERED: NACL 0.9% 1000 ML 1,000 ML IV SCH (06:00)
[2018-06-18] MEDS ORDERED: ANCEF/STERILE WATER 2 GM/20 ML 2 GM/20 ML SYRINGE IV NR (06:00)
--- NOTE | 2018-06-18 07:52 | Progress Note ---
Assessment and Plan Cultures: Blood culture 06/13/2018 no growth Urine culture grew multiple sp <10 Urine culture 06/16/2018 10-100K Enterococcus. Assessment: 72 y/o male with history of alcoholism,tobacco use, COPD and dementia admitted on 06/02/2018 due to AMS/confusion: 1) Sepsis: NOT Present on admission, manifested by fever, tachycardia on 06/13/2018, now improved, no fevers in >24 hours. Etiology most likely UTI. CXR negative. Blood culture 06/13/2018 no growth. 2) UTI: mild UTI present on admission, however worsening. UA showed wbc 24, large LE. Urine culture grew multiple sp <10. A zuniga was placed and then removed. Repeat UA showed wbc 89, large LE. Urine culture 06/16/2018 10-100K Enterococcus. Abdominal US shows no evidence of hydronephrosis. The urinary bladder appears distended, but smooth in contour. No evidence of gallstones or cholecystitis. 3) Acute on chronic encephalopathy: multifactorial- dementia, ETOH, hyponatremia and UTI. 4) Acute urinary retention: bladder scan 999 cc now. 5) Hyponatremia: initial Na 109, better Recommendations: - follow-up blood cultures, urine culture - follow-up Kidney and Bladder US - continue unasyn, S2 -if clinically stable tomorrow will switch to Augmentin 875 BID for total 5 days ending 06-20-18 [facility] M: [phone] O:[phone] Subjective Date of service: 06/18/18 Principal diagnosis: AE-COPD; Acute metabolic-toxic encephalopathy; hyponatremia Interval history: Patient seen and examined. Reports abdominal pain. No SOB. no Fevers. Mostly non-conversant with mild agitation observed. Objective - Exam Narrative Exam: General appearance: Somnolent, Agitated, Mild distress. Cachexia. Eyes: anicteric sclerae, moist conjunctivae; no lid-lag; PERRLA HENT: Atraumatic; oropharynx limited Neck: Trachea midline; supple, no thyromegaly or lymphadenopathy Lungs: CTA CV: tachycardic Abdomen: Soft, +suprapubic tenderness Extremities: No peripheral edema or extremity lymphadenopathy Skin: Normal temperature, turgor and texture; no rash, ulcers or subcutaneous nodules Psych: agitated Neuro: alert agitated - Constitutional Vitals: Vital Signs Temp Pulse Resp BP Pulse Ox 98.2 F 62 20 97/62 100 06/18/18 07:21 06/18/18 07:21 06/18/18 07:21 06/18/18 07:21 06/18/18 07:21 Temperature -Last 24 Hours Temperature 98.2 F Temperature 97.5 F Temperature 98.4 F Temperature 979 F - Labs CBC & Chem 7: 06/17/18 08:21 06/17/18 08:21 Labs: Abnormal lab results 06/17/18 06/17/18 06/18/18 Range/Units 08:21 08:21 05:06 WBC 11.4 H (4.5-11.0) K/mm3 MCV 98 H (84-94) fl MCH 33 H (28-32) pg Plt Count 107 L (140-440) K/mm3 PT 16.6 H (12.2-14.9) Sec. INR 1.26 H (0.87-1.13) Sodium 146 H (137-145) mmol/L Chloride 109.2 H (98-107) mmol/L BUN 47 H (9-20) mg/dL Glucose 109 H (75-100) mg/dL Calcium 8.3 L (8.4-10.2) mg/dL Magnesium 2.60 H (1.7-2.3) mg/dL Total Protein 5.2 L (6.3-8.2) g/dL Albumin 2.9 L (3.9-5) g/dL
[2018-06-18] MEDS: SOLU-Medrol IV SCH (08:59)
[2018-06-18] MEDS: LOVENOX SUB-Q SCH ×2 (08:59→10:06)
[2018-06-18] MEDS: SODIUM CHLORIDE FLUSH SYRINGE 10 ML IV SCH ×2 (09:00→22:24)
[2018-06-18] MEDS: VITAMIN B-1 PO SCH (09:02)
[2018-06-18] MEDS: FOLVITE PO SCH (09:02)
[2018-06-18] MEDS: LOPRESSOR PO SCH ×2 (09:02→22:24)
[2018-06-18] MEDS: PROTONIX PO SCH (09:02)
[2018-06-18] MEDS: Centrum Liq PO SCH (09:02)
[2018-06-18] MEDS: FLOMAX PO SCH (09:02)
--- NOTE | 2018-06-18 10:05 | Progress Note ---
Subjective Principal diagnosis: AE-COPD; Acute metabolic-toxic encephalopathy; hyponatremia Interval history: came to evaluate the patient today Reconsulted for management of sodium Patient is currently out for MRI Last sodium level was 146 which has been stable for past 3-4 days renal function is normal creatinine 0.9 albumin is 2.9 GI service currently following Will order for lab studies and then follow up Objective - Vital Signs Vital signs: Vital Signs - 12hr 06/18/18 06/18/18 06/18/18 00:00 02:55 03:32 Temperature 97.5 F L Pulse Rate 72 Respiratory 18 Rate Blood Pressure 92/60 86/41 96/65 O2 Sat by Pulse 100 Oximetry 06/18/18 06/18/18 04:00 07:21 Temperature 98.2 F Pulse Rate 63 62 Respiratory 20 Rate Blood Pressure 97/62 O2 Sat by Pulse 100 Oximetry - Lab 06/17/18 08:21 06/17/18 08:21 Most recent lab results Calcium 8.3 mg/dL (8.4-10.2) L 06/17/18 08:21 Phosphorus 3.90 mg/dL (2.5-4.5) 06/04/18 09:47 Magnesium 2.60 mg/dL (1.7-2.3) H 06/17/18 08:21 Urine Sodium 20 mmol/L 06/02/18 22:02 Medications & Allergies - Medications Allergies/Adverse Reactions: Allergies diphenhydramine HCl [From Benadryl] Allergy (Verified 09/24/14 11:56) Unknown HALLUCINATIONS Home Medications: Home Medications Medication Instructions Recorded Confirmed Last Taken Type Albuterol *Only Ed* [Proventil 2.5 mg IH Q4HRT PRN #1 nebu 10/03/14 06/03/18 Unknown Rx 0.5% NEBS] Folic Acid [Folvite] 1 mg PO QDAY #30 tablet 10/03/14 06/03/18 Unknown Rx Furosemide [Lasix TAB] 20 mg PO QDAY #30 tablet 10/03/14 06/03/18 Unknown Rx Metoprolol [Lopressor TAB] 12.5 mg PO BID #60 tablet 10/03/14 06/03/18 Unknown Rx Multivitamins Liq [Multiple 5 ml PO QDAY 30 Days oral.liqd 10/03/14 06/03/18 Unknown Rx Vitamin Liq (Theragran)] Thiamine [Vitamin B-1] 100 mg PO QDAY #30 tablet 10/03/14 06/03/18 Unknown Rx Active Medications: Generic Name Dose Route Start Last Admin Trade Name Freq PRN Reason Stop Dose Admin Acetaminophen 650 mg 06/03/18 00:05 06/13/18 03:03 Tylenol PO 650 mg Q4H PRN Administration Pain MILD(1-3)/Fever >100.5/CHANCE Acetaminophen 650 mg 06/16/18 15:03 06/16/18 15:14 Tylenol [place] 650 mg Q4H PRN Administration Non Cardiac Pain or Temp>100.5 Albuterol 2.5 mg 06/03/18 13:11 06/03/18 15:01 Proventil IH 2.5 mg Q4HRT PRN Administration Shortness Of Breath Albuterol/Ipratropium 1 ampul 06/05/18 20:00 06/17/18 21:25 Duoneb *Not For Prn Use* IH 1 ampul TIDRT CINDA Administration Arformoterol Tartrate 15 mcg 06/03/18 20:00 06/17/18 21:25 Brovana Nebu IH 15 mcg Q12HRT CINDA Administration Budesonide 0.5 mg 06/03/18 20:00 06/17/18 21:25 Pulmicort IH 0.5 mg Q12HRT CINDA Administration Clonidine HCl 0.1 mg 06/11/18 22:00 06/17/18 23:38 Catapres PO Not Given HS CINDA Enoxaparin Sodium 40 mg 06/03/18 10:00 06/18/18 08:59 Lovenox SUB-Q 40 mg QDAY@1000 CINDA Administration Folic Acid 1 mg 06/04/18 10:00 06/18/18 09:02 Folvite PO Not Given QDAY CINDA Haloperidol Lactate 5 mg 06/09/18 09:51 06/17/18 13:20 Haldol IM 5 mg Q6H PRN Administration Acute Psychosis Hydralazine HCl 10 mg 06/06/18 12:10 06/09/18 14:26 Apresoline IV 10 mg Q4H PRN Administration BP >160/100 Dextrose 1,000 mls @ 100 mls/hr 06/17/18 13:00 06/18/18 01:24 D5w IV 100 mls/hr DIRECT CINDA Administration Cefazolin Sodium 2 gm in 20 mls @ 80 mls/hr 06/18/18 06:00 Ancef/Sterile Water 2 Gm/20 Ml IV 06/18/18 21:00 PREOP NR Protocol Sodium Chloride 1,000 mls @ 50 mls/hr 06/18/18 06:00 Nacl 0.9% 1000 Ml IV 06/18/18 21:00 DIRECT CINDA Ampicillin Sodium/Sulbactam Sodium 3 gm in 100 mls @ 200 mls/hr 06/17/18 18:00 06/18/18 06:16 Unasyn/Ns 3 Gm/100 Ml IV 200 mls/hr Q6HR CINDA Administration Protocol Lorazepam 2 mg 06/03/18 14:00 Ativan PO Q1H PRN CIWA-Ar 8-15 Lorazepam 4 mg 06/03/18 14:00 06/17/18 15:59 Ativan IV 4 mg Q1H PRN Administration CIWA-Ar 16-25 Lorazepam 4 mg 06/03/18 14:00 Ativan IV Q15MIN PRN CIWA-Ar >25 Melatonin 5 mg 06/07/18 19:41 06/10/18 23:30 Melatonin PO 5 mg QHS PRN Administration Sleep Methylprednisolone Sodium Succinate 40 mg 06/16/18 10:00 06/18/18 08:59 Solu-Medrol IV 40 mg DAILY CINDA Administration Metoprolol Tartrate 50 mg 06/11/18 10:00 06/18/18 09:02 Lopressor PO Not Given BID CINDA Mirtazapine 15 mg 06/10/18 22:00 06/17/18 23:38 Remeron PO Not Given QHS CINDA Multivitamins 5 ml 06/04/18 10:00 06/18/18 09:02 Centrum Liq PO Not Given QDAY CINDA Ondansetron HCl 4 mg 06/03/18 00:05 Zofran IV Q8H PRN Nausea And Vomiting Pantoprazole Sodium 40 mg 06/06/18 10:00 06/18/18 09:02 Protonix PO Not Given DAILY CINDA Sodium Chloride 10 ml 06/03/18 10:00 06/18/18 09:00 Sodium Chloride Flush Syringe 10 Ml IV 10 ml BID CINDA Administration Sodium Chloride 10 ml 06/03/18 00:05 Sodium Chloride Flush Syringe 10 Ml IV PRN PRN LINE FLUSH Tamsulosin HCl 0.4 mg 06/03/18 12:00 06/18/18 09:02 Flomax PO Not Given QDAY CINDA Thiamine HCl 100 mg 06/04/18 10:00 06/18/18 09:02 Vitamin B-1 PO Not Given QDAY CINDA
--- NOTE | 2018-06-18 10:33 | Magnetic Resonance Report ---
MRI BRAIN WITHOUT CONTRAST: 06/18/18 CLINICAL: Delirium. COMPARISON: CT head 06/02/18 TECHNIQUE: Axial diffusion, T1, T2, gradient echo T2*, coronal and axial FLAIR and sagittal T1 sequences on a 1.5 Brandi magnet. FINDINGS: The quality of the examination is degraded by motion. The ventricles and sulci are large for age. No restricted diffusion. Mild bilateral periventricular white matter hyperintensities on FLAIR and T2. No mass or mass effect. No hemorrhage, edema or extra-axial collection. No chronic microbleeds in the gradient echo sequence. Normal pituitary and optic chiasm. The brainstem and cerebellum are normal. Intact vascular flow voids. Normal sinuses. The orbits, and soft tissues are normal. Normal calvarium and skull base. IMPRESSION: Global cortical atrophy and otherwise negative. No evidence of acute/subacute infarct or hemorrhage.
[2018-06-18] MEDS: DUONEB *Not for PRN Use IH SCH ×3 (10:53→20:05)
[2018-06-18] MEDS: BROVANA NEBU IH SCH ×2 (10:53→20:05)
[2018-06-18] MEDS: PULMICORT IH SCH ×2 (10:54→20:05)
--- NOTE | 2018-06-18 15:42 | Progress Note ---
Assessment and Plan Assessment and plan: 72-year-old man with history of alcoholism and likely dementia which has not been diagnosed with suspected by family. The patient's and he was dependent on her past the week 2 weeks prior. He was home by himself, is apparently drinking heavily not eating and not. He had been confused per his son and neighbors. His son and asked him to go to the ER , then he called the EMS. The patient was found to have a very low sodium, agitated and confused. CT head no acute findings Chest x-ray no acute findings -The patient is on [facility] protocol for alcohol withdrawal. He is now out of the window for alcohol withdrawal -He was counseled on tobacco cessation, time spent greater than 10 minutes -The patient was initially very hyponatremic when he came to the hospital, he r eceived saline IV, salt tabs and his potassium was replaced. -The patient developed urinary retention, therefore [place] catheter placed -He received a course of steroids and nebulizers for COPD exacerbation, now improved. -She had very poor by mouth intake, he was only taking sips of drinks some bare ly consuming any food. 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 -dc to SNF when improved Diagnoses Afib with RVR, PAF hypercoaguable state Alcohol dependence and withdrawal Acute metabolic encephalopathy Severe hyponatremia, now resolved mild hypernatremia- d5w drip Hypercholesteremia Beer potomania severe malnutrition COPD exacerbation Tobacco abuse, current every day smoker Acute hypoxic respiratory failure Dementia severe malnutrition Sepsis UTI -Urinary retention/obstructive uropathy - History Interval history: Patient has been confused, he is less agitated Review of systems Constitutional: No fevers, no malaise, no joint pains CVS: No chest pain, no orthopnea, no dyspnea on exertion, no pedal edema GI: No abdominal pain, no diarrhea, no vomiting, no constipation has not been eating Respiratory: no sob or cough Hospitalist Physical - Physical exam Narrative exam: General.: , nontoxic HEENT: Moist mucous membranes, extraocular muscles intact, no lymphadenopathy Neck: supple Cardiac: S1-S2 heard Lungs: CTA Abdomen: soft , nontender, nondistended, bowel sounds positive Extremities: no edema clubbing or cyanosis Skin: no rash or lesions Neurologic: Confused, moves all extremities Psych: calm, - Constitutional Vitals: Temp Pulse Resp BP Pulse Ox 98.2 F 102 H 16 97/62 95 06/18/18 07:21 06/18/18 13:43 06/18/18 13:43 06/18/18 07:21 06/18/18 13:47 General appearance: Present: no acute distress Results - Labs CBC & Chem 7: 06/17/18 08:21 06/17/18 08:21 Labs: Laboratory Last Values WBC 11.4 K/mm3 (4.5-11.0) H 06/17/18 08:21 RBC 3.79 M/mm3 (3.65-5.03) 06/17/18 08:21 Hgb 12.4 gm/dl (11.8-15.2) 06/17/18 08:21 Hct 37.2 % (35.5-45.6) 06/17/18 08:21 MCV 98 fl (84-94) H 06/17/18 08:21 MCH 33 pg (28-32) H 06/17/18 08:21 MCHC 33 % (32-34) 06/17/18 08:21 RDW 13.7 % (13.2-15.2) 06/17/18 08:21 Plt Count 107 K/mm3 (140-440) L 06/17/18 08:21 [place] % (Auto) [employer] Consult[employer] 06/02/18 21:25 Add Manual Diff Complete 06/04/18 09:47 Total Counted 100 06/04/18 09:47 Seg Neuts % (Manual) 92.0 % (40.0-70.0) H 06/04/18 09:47 Band Neutrophils % 0 % 06/04/18 09:47 Lymphocytes % (Manual) 5.0 % (13.4-35.0) L 06/04/18 09:47 Reactive Lymphs % (Man) 0 % 06/04/18 09:47 Monocytes % (Manual) 3.0 % (0.0-7.3) 06/04/18 09:47 Eosinophils % (Manual) 0 % (0.0-4.3) 06/04/18 09:47 Basophils % (Manual) 0 % (0.0-1.8) 06/04/18 09:47 Metamyelocytes % 0 % 06/04/18 09:47 Myelocytes % 0 % 06/04/18 09:47 Promyelocytes % 0 % 06/04/18 09:47 Blast Cells % 0 % 06/04/18 09:47 Nucleated RBC % Not Reportable 06/04/18 09:47 Seg Neutrophils # Man 4.9 K/mm3 (1.8-7.7) 06/04/18 09:47 Band Neutrophils # 0.0 K/mm3 06/04/18 09:47 Lymphocytes # (Manual) 0.3 K/mm3 (1.2-5.4) L 06/04/18 09:47 Abs React Lymphs (Man) 0.0 K/mm3 06/04/18 09:47 Monocytes # (Manual) 0.2 K/mm3 (0.0-0.8) 06/04/18 09:47 Eosinophils # (Manual) 0.0 K/mm3 (0.0-0.4) 06/04/18 09:47 Basophils # (Manual) 0.0 K/mm3 (0.0-0.1) 06/04/18 09:47 Metamyelocytes # 0.0 K/mm3 06/04/18 09:47 Myelocytes # 0.0 K/mm3 06/04/18 09:47 Promyelocytes # 0.0 K/mm3 06/04/18 09:47 Blast Cells # 0.0 K/mm3 06/04/18 09:47 WBC Morphology Not Reportable 06/04/18 09:47 Hypersegmented Neuts Not Reportable 06/04/18 09:47 Hyposegmented Neuts Not Reportable 06/04/18 09:47 Hypogranular Neuts Not Reportable 06/04/18 09:47 Smudge Cells Not Reportable 06/04/18 09:47 Toxic Granulation 1+ 06/04/18 09:47 Toxic Vacuolation Not Reportable 06/04/18 09:47 Dohle Bodies Not Reportable 06/04/18 09:47 Pelger-Huet Anomaly Not Reportable 06/04/18 09:47 Dashawn Rods Not Reportable 06/04/18 09:47 Platelet Estimate Consistent w auto 06/04/18 09:47 Clumped Platelets Not Reportable 06/04/18 09:47 Plt Clumps, EDTA Not Reportable 06/04/18 09:47 Large Platelets Not Reportable 06/04/18 09:47 Giant Platelets Not Reportable 06/04/18 09:47 Platelet Satelliting Not Reportable 06/04/18 09:47 Plt Morphology Comment Not Reportable 06/04/18 09:47 RBC Morphology Normal 06/04/18 09:47 Dimorphic RBCs Not Reportable 06/04/18 09:47 Polychromasia Not Reportable 06/04/18 09:47 Hypochromasia Not Reportable 06/04/18 09:47 Poikilocytosis Not Reportable 06/04/18 09:47 Anisocytosis Not Reportable 06/04/18 09:47 Microcytosis Not Reportable 06/04/18 09:47 Macrocytosis Not Reportable 06/04/18 09:47 Spherocytes Not Reportable 06/04/18 09:47 Pappenheimer Bodies Not Reportable 06/04/18 09:47 Sickle Cells Not Reportable 06/04/18 09:47 Target Cells Not Reportable 06/04/18 09:47 Tear Drop Cells Not Reportable 06/04/18 09:47 Ovalocytes Not Reportable 06/04/18 09:47 Helmet Cells Not Reportable 06/04/18 09:47 [place] Bodies Not Reportable 06/04/18 09:47 [place] Rings Not Reportable 06/04/18 09:47 [place] Cells Not Reportable 06/04/18 09:47 Bite Cells Not Reportable 06/04/18 09:47 Crenated Cell Not Reportable 06/04/18 09:47 Elliptocytes Not Reportable 06/04/18 09:47 Acanthocytes (Spur) Not Reportable 06/04/18 09:47 Rouleaux Not Reportable 06/04/18 09:47 Hemoglobin C Crystals Not Reportable 06/04/18 09:47 Schistocytes Not Reportable 06/04/18 09:47 Malaria parasites Not Reportable 06/04/18 09:47 Rajesh Bodies Not Reportable 06/04/18 09:47 Hem Pathologist Commnt No 06/04/18 09:47 PT 16.6 Sec. (12.2-14.9) H 06/18/18 05:06 INR 1.26 (0.87-1.13) H 06/18/18 05:06 Sodium 146 mmol/L (137-145) H 06/17/18 08:21 Potassium 3.7 mmol/L (3.6-5.0) 06/17/18 08:21 Chloride 109.2 mmol/L (98-107) H 06/17/18 08:21 Carbon Dioxide 27 mmol/L (22-30) 06/17/18 08:21 Anion Gap 14 mmol/L 06/17/18 08:21 BUN 47 mg/dL (9-20) H 06/17/18 08:21 Creatinine 0.9 mg/dL (0.8-1.5) 06/17/18 08:21 Estimated GFR > 60 ml/min 06/17/18 08:21 BUN/Creatinine Ratio 52 % 06/17/18 08:21 Glucose 109 mg/dL (75-100) H 06/17/18 08:21 POC Glucose 93 (70-105) 06/02/18 21:18 Osmolality 312 Mosm/kg 06/18/18 11:19 Uric Acid 3.5 mg/dL (3.5-7.6) 06/18/18 11:19 Calcium 8.3 mg/dL (8.4-10.2) L 06/17/18 08:21 Phosphorus 3.90 mg/dL (2.5-4.5) 06/04/18 09:47 Magnesium 2.60 mg/dL (1.7-2.3) H 06/17/18 08:21 Total Bilirubin 1.00 mg/dL (0.1-1.2) 06/17/18 08:21 Direct Bilirubin < 0.2 mg/dL (0-0.2) 06/04/18 04:39 Indirect Bilirubin 0.2 mg/dL 06/04/18 04:39 AST 26 units/L (5-40) 06/17/18 08:21 ALT 30 units/L (7-56) 06/17/18 08:21 Alkaline Phosphatase 49 units/L (35-129) 06/17/18 08:21 Ammonia 55.0 umol/L (25-60) 06/16/18 17:33 Total Creatine Kinase 420 units/L (55-170) H 06/02/18 21:25 Troponin T < 0.010 ng/mL (0.00-0.029) 06/02/18 21:25 NT-Pro-B Natriuret Pep 379.8 pg/mL (0-900) 06/02/18 21:25 Total Protein 5.2 g/dL (6.3-8.2) L 06/17/18 08:21 Albumin 2.9 g/dL (3.9-5) L 06/17/18 08:21 Albumin/Globulin Ratio 1.3 % 06/17/18 08:21 Vitamin B12 697.5 pg/mL (211-911) 06/16/18 17:33 TSH 1.100 mlU/mL (0.270-4.200) 06/03/18 20:45 Urine Color Yellow (Yellow) 06/16/18 03:20 Urine Turbidity Cloudy (Clear) 06/16/18 03:20 Urine pH 5.0 (5.0-7.0) 06/16/18 03:20 Ur Specific [place] 1.020 (1.003-1.030) 06/16/18 03:20 Urine Protein <15 mg/dl mg/dL (Negative) 06/16/18 03:20 Urine Glucose (UA) Neg mg/dL (Negative) 06/16/18 03:20 Urine Ketones Neg mg/dL (Negative) 06/16/18 03:20 Urine Blood Sm (Negative) 06/16/18 03:20 Urine Nitrite Neg (Negative) 06/16/18 03:20 Urine Bilirubin Neg (Negative) 06/16/18 03:20 Urine Urobilinogen < 2.0 mg/dL (<2.0) 06/16/18 03:20 Ur Leukocyte Esterase Lg (Negative) 06/16/18 03:20 Urine WBC (Auto) 89.0 /HPF (0.0-6.0) H 06/16/18 03:20 Urine RBC (Auto) 10.0 /HPF (0.0-6.0) 06/16/18 03:20 U Epithel Cells (Auto) 2.0 /HPF (0-13.0) 06/16/18 03:20 Urine Bacteria (Auto) 1+ /HPF (Negative) 06/16/18 03:20 Urine Mucus Few /HPF 06/16/18 03:20 Urine Yeast (Budding) 1+ /HPF 06/16/18 03:20 Urine Osmolality 203 Mosm/kg 06/02/18 22:02 Urine Sodium 66 mmol/L 06/18/18 10:05 RPR Nonreactive (Nonreactive) 06/16/18 17:33 Active Medications - Current Medications Current Medications: Generic Name Dose Route Start Last Admin Trade Name Freq PRN Reason Stop Dose Admin Acetaminophen 650 mg 06/03/18 00:05 06/13/18 03:03 Tylenol PO 650 mg Q4H PRN Administration Pain MILD(1-3)/Fever >100.5/CHANCE Acetaminophen 650 mg 06/16/18 15:03 06/16/18 15:14 Tylenol [place] 650 mg Q4H PRN Administration Non Cardiac Pain or Temp>100.5 Albuterol 2.5 mg 06/03/18 13:11 06/03/18 15:01 Proventil IH 2.5 mg Q4HRT PRN Administration Shortness Of Breath Albuterol/Ipratropium 1 ampul 06/05/18 20:00 06/18/18 13:42 Duoneb *Not For Prn Use* IH 1 ampul TIDRT CINDA Administration Arformoterol Tartrate 15 mcg 06/03/18 20:00 06/18/18 10:53 Brovana Nebu IH 15 mcg Q12HRT CINDA Administration Budesonide 0.5 mg 06/03/18 20:00 06/18/18 10:54 Pulmicort IH 0.5 mg Q12HRT CINDA Administration Clonidine HCl 0.1 mg 06/11/18 22:00 06/17/18 23:38 Catapres PO Not Given HS CINDA Enoxaparin Sodium 40 mg 06/03/18 10:00 06/18/18 10:06 Lovenox SUB-Q Not Given QDAY@1000 CINDA Folic Acid 1 mg 06/04/18 10:00 06/18/18 09:02 Folvite PO Not Given QDAY CINDA Haloperidol Lactate 5 mg 06/09/18 09:51 06/17/18 13:20 Haldol IM 5 mg Q6H PRN Administration Acute Psychosis Hydralazine HCl 10 mg 06/06/18 12:10 06/09/18 14:26 Apresoline IV 10 mg Q4H PRN Administration BP >160/100 Dextrose 1,000 mls @ 100 mls/hr 06/17/18 13:00 06/18/18 01:24 D5w IV 100 mls/hr DIRECT CINDA Administration Cefazolin Sodium 2 gm in 20 mls @ 80 mls/hr 06/18/18 06:00 Ancef/Sterile Water 2 Gm/20 Ml IV 06/18/18 21:00 PREOP NR Protocol Sodium Chloride 1,000 mls @ 50 mls/hr 06/18/18 06:00 Nacl 0.9% 1000 Ml IV 06/18/18 21:00 DIRECT CINDA Ampicillin Sodium/Sulbactam Sodium 3 gm in 100 mls @ 200 mls/hr 06/17/18 18:00 06/18/18 12:50 Unasyn/Ns 3 Gm/100 Ml IV 200 mls/hr Q6HR CINDA Administration Protocol Lorazepam 2 mg 06/03/18 14:00 Ativan PO Q1H PRN CIWA-Ar 8-15 Lorazepam 4 mg 06/03/18 14:00 06/17/18 15:59 Ativan IV 4 mg Q1H PRN Administration CIWA-Ar 16-25 Lorazepam 4 mg 06/03/18 14:00 Ativan IV Q15MIN PRN CIWA-Ar >25 Melatonin 5 mg 06/07/18 19:41 06/10/18 23:30 Melatonin PO 5 mg QHS PRN Administration Sleep Methylprednisolone Sodium Succinate 40 mg 06/16/18 10:00 06/18/18 08:59 Solu-Medrol IV 40 mg DAILY CINDA Administration Metoprolol Tartrate 50 mg 06/11/18 10:00 06/18/18 09:02 Lopressor PO Not Given BID CINDA Mirtazapine 15 mg 06/10/18 22:00 06/17/18 23:38 Remeron PO Not Given QHS [facility] Multivitamins 5 ml 06/04/18 10:00 06/18/18 09:02 Centrum Liq PO Not Given QDAY [facility] Ondansetron HCl 4 mg 06/03/18 00:05 Zofran IV Q8H PRN Nausea And Vomiting Pantoprazole Sodium 40 mg 06/06/18 10:00 06/18/18 09:02 Protonix PO Not Given DAILY CINDA Sodium Chloride 10 ml 06/03/18 10:00 06/18/18 09:00 Sodium Chloride Flush Syringe 10 Ml IV 10 ml BID CINDA Administration Sodium Chloride 10 ml 06/03/18 00:05 Sodium Chloride Flush Syringe 10 Ml IV PRN PRN LINE FLUSH Tamsulosin HCl 0.4 mg 06/03/18 12:00 06/18/18 09:02 Flomax PO Not Given QDAY [facility] Thiamine HCl 100 mg 06/04/18 10:00 06/18/18 09:02 Vitamin B-1 PO Not Given QDAY [facility] Nutrition/Malnutrition Assess - Dietary Evaluation Nutrition/Malnutrition Findings: Nutrition Notes Start: 06/09/18 14:29 Freq: Status: Active Protocol: Document 06/17/18 11:45 TW (Rec: 06/17/18 11:56 TW [id number]) Co-Sign 06/17/18 11:45 LP Nutrition Notes Initial or Follow up Reassessment Current Diagnosis COPD,Hypertension,Heart Failure Other Pertinent Diagnosis Alcoholic Hx, AMS, UTI, Dementia, Metabolic encephalopathy Current Diet NPO Labs/Tests Reviewed Pertinent Medications Solu-Medrol Height 5 ft 10 in Weight 57.3 kg [place] Body Weight (kg) 75.45 BMI 18.1 Subjective/Other Information Per RN, pt failed swallow evaluation and RN will discuss with GI the POC and need for a PEG tube. Pt has not taken anything in by mouth today. Burn Absent Trauma Absent #1 Nutrition Diagnosis Inadequate oral intake Diagnosis Progress(for reassessment Continues documentation) Is patient on ventilator? No Is Patient Ambulatory and/or Out of Bed No REE-([facility]-confined to bed) 1595.424 Kcal/Kg value to use for calculation 32 Approximate Energy Requirements Using 1834 kcal/Kg Additional Notes Protein Needs: 61-73g (1-1.2g/ kg) Fluid Needs: 1 ml/kcal Nutrition Intervention Change Diet Order: TF when medically feasible Nutrition Support: Osmolite 1.5 at 55 ml/hr Water Flush 150ml q4h. Kcal 1,980 Protein (gm) 82 Fluid (mL) 1,005 Goal #1 TF initiation Anticipated Discharge Needs: Unable to determine at this time Follow-Up By: 06/20/18 Additional Comments F/U for POC and TF initiation
--- NOTE | 2018-06-18 16:18 | Event Note ---
Date: 06/18/18 Awaiting arrival of son, and final decision regarding nutritional support. Again, I spoke with pt, and though difficult to understand, he clearly does NOT wish to proceed with PEG as yet, or with [place].
--- NOTE | 2018-06-18 18:31 | Progress Note ---
Assessment and Plan Patient still confused.On 2 litres O2, O2 saturation is 95%. No acute respiratory distress. Patient still having shakes and tremors.. - Patient Problems (1) COPD exacerbation Current Visit: No Status: Acute Plan to address problem: According to the history, possible COPD. Patient on 2L O2 Albuterol/Atrovent aerosol treatments q6hrs Continue solumedrol Continue Lovenox Continue Protonix Patient is on Unasyn (2) Acute hyponatremia Current Visit: Yes Status: Acute Plan to address problem: sodium improved to 146 (3) Altered mental status Current Visit: Yes Status: Acute Plan to address problem: Watch altered mental status. (4) Alcohol abuse Current Visit: Yes Status: Chronic Plan to address problem: Patient confused and having shakes and Tremors. Patient is on I/V ativan. Subjective Date of service: 06/18/18 Principal diagnosis: AE-COPD; Acute metabolic-toxic encephalopathy; hyponatremia Interval history: Patient still confused.On 2 litres O2, O2 saturation is 95%. No acute respiratory distress. Patient still having shakes and tremors.. Objective Vital Signs - 12hr 06/18/18 06/18/18 06/18/18 07:21 10:00 10:54 Temperature 98.2 F Pulse Rate 62 127 H Pulse Rate [ 106 H Anterior Bilateral Throughout] Pulse Rate [ 127 H From Monitor] Pulse Rate [ 100 H Throughout] Respiratory 20 Rate Respiratory 16 Rate [Anterior Bilateral Throughout] Respiratory 14 Rate [ Throughout] Blood Pressure 97/62 O2 Sat by Pulse 100 100 Oximetry 06/18/18 06/18/18 13:43 13:47 Temperature Pulse Rate Pulse Rate [ 102 H Anterior Bilateral Throughout] Pulse Rate [ From Monitor] Pulse Rate [ 94 H Throughout] Respiratory Rate Respiratory 16 Rate [Anterior Bilateral Throughout] Respiratory 16 Rate [ Throughout] Blood Pressure O2 Sat by Pulse 95 Oximetry Constitutional: no acute distress, lethargic, other (elderly and chronically ill looking CM with mildly increased respiratory effort at rest) Eyes: non-icteric ENT: oropharynx moist Neck: supple, no JVD, other (no thyromegaly) Effort: mildly labored Ascultation: Bilateral: diminished breath sounds, other (prolonged expiratory phase) Percussion: Bilateral: not dull Cardiovascular: regular rate and rhythm Gastrointestinal: normoactive bowel sounds, soft, non-tender, non-distended Integumentary: normal Extremities: no cyanosis, no edema, pink and warm, pulses normal Neurologic: non-focal exam (grossly), pupils equal and round, CN II-XII normal Psychiatric: other (delirious) CBC and BMP: 06/17/18 08:21 06/17/18 08:21 ABG, PT/INR, D-dimer: PT/INR, D-dimer PT 16.6 Sec. (12.2-14.9) H 06/18/18 05:06 INR 1.26 (0.87-1.13) H 06/18/18 05:06 Abnormal lab findings: Abnormal Labs 06/02/18 06/02/18 06/02/18 21:25 21:25 22:03 WBC MCV MCH 33 H MCHC 35 H RDW 12.8 L Plt Count Seg Neuts % (Manual) 80.0 H Lymphocytes % (Manual) Lymphocytes # (Manual) 0.8 L PT INR Sodium 109 L* Potassium Chloride 71.3 L Carbon Dioxide BUN 6 L Creatinine 0.5 L Glucose Calcium Magnesium Ammonia Total Creatine Kinase 420 H Total Protein Albumin Urine WBC (Auto) 24.0 H 06/03/18 06/03/18 06/03/18 00:15 06:27 09:42 WBC MCV MCH MCHC RDW Plt Count Seg Neuts % (Manual) Lymphocytes % (Manual) Lymphocytes # (Manual) PT INR Sodium 113 L* 118 L* 116 L* Potassium 3.5 L 3.5 L Chloride 77.2 L 79.1 L 78.2 L Carbon Dioxide BUN 5 L 4 L 4 L Creatinine 0.4 L 0.5 L 0.4 L Glucose Calcium 8.2 L 7.9 L 8.1 L Magnesium Ammonia Total Creatine Kinase Total Protein Albumin Urine WBC (Auto) 06/03/18 06/03/18 06/03/18 14:41 14:41 20:45 WBC MCV MCH MCHC RDW Plt Count Seg Neuts % (Manual) Lymphocytes % (Manual) Lymphocytes # (Manual) PT INR Sodium 114 L* 118 L* Potassium 3.1 L Chloride 76.3 L 79.7 L Carbon Dioxide BUN 4 L 3 L Creatinine 0.5 L 0.4 L Glucose Calcium 8.1 L 8.3 L Magnesium Ammonia 23.0 L Total Creatine Kinase Total Protein Albumin Urine WBC (Auto) 06/04/18 06/04/18 06/04/18 04:39 09:47 09:47 WBC MCV 95 H MCH 33 H MCHC RDW 12.8 L Plt Count Seg Neuts % (Manual) 92.0 H Lymphocytes % (Manual) 5.0 L Lymphocytes # (Manual) 0.3 L PT INR Sodium 123 L Potassium Chloride 85.2 L Carbon Dioxide BUN 5 L Creatinine 0.5 L Glucose 129 H Calcium 8.3 L Magnesium Ammonia Total Creatine Kinase Total Protein 5.5 L Albumin 3.1 L Urine WBC (Auto) 06/05/18 06/06/18 06/07/18 04:29 05:25 07:11 WBC MCV MCH MCHC RDW Plt Count Seg Neuts % (Manual) Lymphocytes % (Manual) Lymphocytes # (Manual) PT INR Sodium 126 L 133 L D 126 L D Potassium Chloride 90.4 L 95.1 L 86.1 L Carbon Dioxide BUN 8 L Creatinine 0.5 L 0.5 L 0.5 L Glucose 170 H 123 H 129 H Calcium 8.2 L 8.1 L Magnesium Ammonia Total Creatine Kinase Total Protein Albumin Urine WBC (Auto) 06/08/18 06/09/18 06/10/18 11:03 06:13 07:14 WBC MCV MCH MCHC RDW Plt Count Seg Neuts % (Manual) Lymphocytes % (Manual) Lymphocytes # (Manual) PT INR Sodium 134 L D Potassium Chloride 92.2 L Carbon Dioxide 31 H BUN Creatinine 0.5 L 0.6 L 0.5 L Glucose 106 H 130 H 126 H Calcium Magnesium Ammonia Total Creatine Kinase Total Protein Albumin Urine WBC (Auto) 06/11/18 06/12/18 06/13/18 10:23 04:58 05:33 WBC MCV MCH MCHC RDW Plt Count Seg Neuts % (Manual) Lymphocytes % (Manual) Lymphocytes # (Manual) PT INR Sodium 136 L 134 L Potassium 3.5 L Chloride Carbon Dioxide BUN 27 H Creatinine 0.4 L 0.5 L 0.6 L Glucose 155 H 141 H 112 H Calcium 8.1 L 7.9 L 8.3 L Magnesium Ammonia Total Creatine Kinase Total Protein Albumin Urine WBC (Auto) 06/13/18 06/14/18 06/14/18 05:33 05:14 05:14 WBC 12.6 H 12.3 H MCV 97 H 98 H MCH 33 H MCHC RDW Plt Count 133 L Seg Neuts % (Manual) Lymphocytes % (Manual) Lymphocytes # (Manual) PT INR Sodium 146 H Potassium Chloride 107.2 H Carbon Dioxide BUN 31 H Creatinine 0.6 L Glucose 113 H Calcium Magnesium Ammonia Total Creatine Kinase Total Protein Albumin Urine WBC (Auto) 06/15/18 06/15/18 06/16/18 04:47 04:47 03:20 WBC 16.7 H MCV 97 H MCH MCHC RDW Plt Count 138 L Seg Neuts % (Manual) Lymphocytes % (Manual) Lymphocytes # (Manual) PT INR Sodium 146 H Potassium Chloride 109.2 H Carbon Dioxide BUN 32 H Creatinine 0.6 L Glucose 124 H Calcium 7.8 L Magnesium Ammonia Total Creatine Kinase Total Protein Albumin Urine WBC (Auto) 89.0 H 06/16/18 06/17/18 06/17/18 05:22 08:21 08:21 WBC 11.4 H MCV 98 H MCH 33 H MCHC RDW Plt Count 107 L Seg Neuts % (Manual) Lymphocytes % (Manual) Lymphocytes # (Manual) PT INR Sodium 146 H 146 H Potassium Chloride 109.0 H 109.2 H Carbon Dioxide BUN 39 H 47 H Creatinine Glucose 120 H 109 H Calcium 7.9 L 8.3 L Magnesium 2.60 H Ammonia Total Creatine Kinase Total Protein 5.2 L Albumin 2.9 L Urine WBC (Auto) 06/18/18 05:06 WBC MCV MCH MCHC RDW Plt Count Seg Neuts % (Manual) Lymphocytes % (Manual) Lymphocytes # (Manual) PT 16.6 H INR 1.26 H Sodium Potassium Chloride Carbon Dioxide BUN Creatinine Glucose Calcium Magnesium Ammonia Total Creatine Kinase Total Protein Albumin Urine WBC (Auto) Allied health notes reviewed: nursing
[2018-06-18] MEDS: CATAPRES PO SCH (22:23)
[2018-06-18] MEDS: REMERON PO SCH (22:24)
[2018-06-18] MEDS: HALDOL IM PRN (22:24)
[2018-06-18] MEDS: TYLENOL PR PRN (22:29)
[2018-06-19] MEDS: TYLENOL PR PRN ×2 (02:41→07:46)
[2018-06-19] MEDS: D5W 1,000 ML IV SCH ×2 (03:46→16:51)
[2018-06-19] MEDS: UNASYN/NS 3 GM/100 ML 3 GM/100 ML BAG IV SCH ×4 (05:14→23:25)
[2018-06-19] MEDS: BROVANA NEBU IH SCH ×2 (08:34→19:38)
[2018-06-19] MEDS: DUONEB *Not for PRN Use IH SCH ×3 (08:34→19:39)
[2018-06-19] MEDS: PULMICORT IH SCH ×2 (08:34→19:38)
--- NOTE | 2018-06-19 08:35 | Progress Note ---
Assessment and Plan Cultures: Blood culture 06/13/2018 no growth Urine culture grew multiple sp <10 Urine culture 06/16/2018 10-100K Enterococcus. Assessment: 72 y/o male with history of alcoholism,tobacco use, COPD and dementia admitted on 06/02/2018 due to AMS/confusion: 1) Sepsis: NOT Present on admission.Continuing to spike fevers. Etiology most likely UTI. CXR negative. Blood culture 06/13/2018 no growth. 2) UTI: mild UTI present on admission, however worsening. UA showed wbc 24, large LE. Urine culture grew multiple sp <10. A zuniga was placed and then removed. Repeat UA showed wbc 89, large LE. Urine culture 06/16/2018 10-100K Ente rococcus. Abdominal US shows no evidence of hydronephrosis. The urinary bladder appears distended, but smooth in contour. No evidence of gallstones or cholecystitis. 3) Acute on chronic encephalopathy: multifactorial- dementia, ETOH, hyponatremia and UTI. Brain MRI shows global cortical atrophy and otherwise negative. No evidence of acute/subacute infarct or hemorrhage. 4) Acute urinary retention: Improved. Zuniga catheter 5) Hyponatremia: initial Na 109, better 6) Severe malnutrition: failed swallow study, GI consulted for PEG placement. Patient refusing - GI following. Continue IV antibiotics. Recommendations: - continue unasyn, D3 -repeat blood cultures ordered -Will order venous duplex bilateral legs to evaluate for possible DVT -Dr. Rainey discussion with Dr. Cooney will order CT of abdomen [facility] M: [phone] O:[phone] Subjective Date of service: 06/19/18 Principal diagnosis: AE-COPD; Acute metabolic-toxic encephalopathy; hyponatremia Interval history: Patient seen and examined. Garbled speech, agitated and diaphoretic on exam. +fevers. Discussion with floor nurse at bedside. Objective - Exam Narrative Exam: General appearance: Awake. Alert Garbled speech. Acute distress observed. Cachexia. Eyes: anicteric sclerae, moist conjunctivae; no lid-lag; PERRLA HENT: Atraumatic; oropharynx limited Neck: Trachea midline; supple, no thyromegaly or lymphadenopathy Lungs: CTA CV: tachycardic Abdomen: Soft, +suprapubic tenderness Extremities: No peripheral edema or extremity lymphadenopathy Skin: Diaphoretic, +temperature Psych: agitated Neuro: alert agitated - Constitutional Vitals: Vital Signs Temp Pulse Resp BP Pulse Ox 98.0 F 67 20 123/65 100 06/19/18 07:42 06/19/18 02:53 06/19/18 07:42 06/19/18 07:42 06/19/18 02:53 Temperature -Last 24 Hours Temperature 98.0 F Temperature 98.3 F Temperature 99.9 F Temperature 101.4 F Temperature 98.6 F Temperature 99.9 F - Labs CBC & Chem 7: 06/19/18 09:10 06/19/18 09:10
--- NOTE | 2018-06-19 08:48 | Progress Note ---
Subjective Principal diagnosis: AE-COPD; Acute metabolic-toxic encephalopathy; hyponatremia Interval history: Patient was seen today for follow-up of multiple renal related issues Patient unable to provide any history Noted to have mild hypernatremia Appears agitated at times Past medical history: Reviewed Family history: Reviewed Social history: Reviewed Allergies: Reviewed Physical examination: Vitals: Reviewed HEENT: No pallor or icterus oral mucosa moist Neck: Supple no JVD no thyromegaly Chest: Bilateral clear to auscultation anteriorly Heart: Regular rate and rhythm S1-S2 heard no S3-S4 Abdomen: Soft nontender no voluntary guarding rigidity rebound Extremity: Dry skin less than 1+ peripheral edema Psychiatric: occasionally agitated Dermatology: No petechial rashes Labs and x-rays: Reviewed from today Assessment and plan Mild hypernatremia we'll do follow-up labs Check osmolality studies uric acid as needed Gentle hydration Monitor daily labs Intake and output management We'll continue to follow and make recommendation for renal standpoint Objective - Vital Signs Vital signs: Vital Signs - 12hr 06/18/18 06/18/18 06/18/18 21:05 22:00 22:23 Temperature Pulse Rate 64 97 H Respiratory Rate Blood Pressure 139/66 O2 Sat by Pulse 97 Oximetry 06/18/18 06/18/18 06/19/18 22:24 22:30 02:40 Temperature 101.4 F H 99.9 F H Pulse Rate 97 H Respiratory Rate Blood Pressure 139/66 O2 Sat by Pulse Oximetry 06/19/18 06/19/18 02:53 07:42 Temperature 98.3 F 98.0 F Pulse Rate 67 Respiratory 18 20 Rate Blood Pressure 106/54 123/65 O2 Sat by Pulse 100 Oximetry - Lab 06/25/18 11:46 06/25/18 04:50 Most recent lab results Calcium 8.3 mg/dL (8.4-10.2) L 06/17/18 08:21 Phosphorus 3.90 mg/dL (2.5-4.5) 06/04/18 09:47 Magnesium 2.60 mg/dL (1.7-2.3) H 06/17/18 08:21 Urine Sodium 66 mmol/L 06/18/18 10:05 Medications & Allergies - Medications Allergies/Adverse Reactions: Allergies diphenhydramine HCl [From Benadryl] Allergy (Verified 09/24/14 11:56) Unknown HALLUCINATIONS Home Medications: Home Medications Medication Instructions Recorded Confirmed Last Taken Type Albuterol *Only Ed* [Proventil 2.5 mg IH Q4HRT PRN #1 nebu 10/03/14 06/03/18 Unknown Rx 0.5% NEBS] Folic Acid [Folvite] 1 mg PO QDAY #30 tablet 10/03/14 06/03/18 Unknown Rx Furosemide [Lasix TAB] 20 mg PO QDAY #30 tablet 10/03/14 06/03/18 Unknown Rx Metoprolol [Lopressor TAB] 12.5 mg PO BID #60 tablet 10/03/14 06/03/18 Unknown Rx Multivitamins Liq [Multiple 5 ml PO QDAY 30 Days oral.liqd 10/03/14 06/03/18 Unknown Rx Vitamin Liq (Theragran)] Thiamine [Vitamin B-1] 100 mg PO QDAY #30 tablet 10/03/14 06/03/18 Unknown Rx Active Medications: Generic Name Dose Route Start Last Admin Trade Name Freq PRN Reason Stop Dose Admin Acetaminophen 650 mg 06/03/18 00:05 06/13/18 03:03 Tylenol PO 650 mg Q4H PRN Administration Pain MILD(1-3)/Fever >100.5/CHANCE Acetaminophen 650 mg 06/16/18 15:03 06/19/18 07:46 Tylenol [place] 650 mg Q4H PRN Administration Non Cardiac Pain or Temp>100.5 Albuterol 2.5 mg 06/03/18 13:11 06/03/18 15:01 Proventil IH 2.5 mg Q4HRT PRN Administration Shortness Of Breath Albuterol/Ipratropium 1 ampul 06/05/18 20:00 06/19/18 08:34 Duoneb *Not For Prn Use* IH 1 ampul TIDRT CINDA Administration Arformoterol Tartrate 15 mcg 06/03/18 20:00 06/19/18 08:34 Brovana Nebu IH 15 mcg Q12HRT CINDA Administration Budesonide 0.5 mg 06/03/18 20:00 06/19/18 08:34 Pulmicort IH 0.5 mg Q12HRT CINDA Administration Clonidine HCl 0.1 mg 06/11/18 22:00 06/18/18 22:23 Catapres PO Not Given HS [facility] Enoxaparin Sodium 40 mg 06/03/18 10:00 06/18/18 10:06 Lovenox SUB-Q Not Given QDAY@1000 [facility] Folic Acid 1 mg 06/04/18 10:00 06/18/18 09:02 Folvite PO Not Given QDAY [facility] Haloperidol Lactate 5 mg 06/09/18 09:51 06/18/18 22:24 Haldol IM 5 mg Q6H PRN Administration Acute Psychosis Hydralazine HCl 10 mg 06/06/18 12:10 06/09/18 14:26 Apresoline IV 10 mg Q4H PRN Administration BP >160/100 Dextrose 1,000 mls @ 100 mls/hr 06/17/18 13:00 06/19/18 03:46 D5w IV 100 mls/hr DIRECT CINDA Administration Ampicillin Sodium/Sulbactam Sodium 3 gm in 100 mls @ 200 mls/hr 06/17/18 18:00 06/19/18 05:14 Unasyn/Ns 3 Gm/100 Ml IV 200 mls/hr Q6HR CINDA Administration Protocol Lorazepam 2 mg 06/03/18 14:00 Ativan PO Q1H PRN CIWA-Ar 8-15 Lorazepam 4 mg 06/03/18 14:00 06/17/18 15:59 Ativan IV 4 mg Q1H PRN Administration CIWA-Ar 16-25 Lorazepam 4 mg 06/03/18 14:00 Ativan IV Q15MIN PRN CIWA-Ar >25 Melatonin 5 mg 06/07/18 19:41 06/10/18 23:30 Melatonin PO 5 mg QHS PRN Administration Sleep Metoprolol Tartrate 50 mg 06/11/18 10:00 06/18/18 22:24 Lopressor PO Not Given BID [facility] Mirtazapine 15 mg 06/10/18 22:00 06/18/18 22:24 Remeron PO Not Given QHS [facility] Multivitamins 5 ml 06/04/18 10:00 06/18/18 09:02 Centrum Liq PO Not Given QDAY [facility] Ondansetron HCl 4 mg 06/03/18 00:05 Zofran IV Q8H PRN Nausea And Vomiting Pantoprazole Sodium 40 mg 06/06/18 10:00 06/18/18 09:02 Protonix PO Not Given DAILY CINDA Sodium Chloride 10 ml 06/03/18 10:00 06/18/18 22:24 Sodium Chloride Flush Syringe 10 Ml IV 10 ml BID CINDA Administration Sodium Chloride 10 ml 06/03/18 00:05 Sodium Chloride Flush Syringe 10 Ml IV PRN PRN LINE FLUSH Tamsulosin HCl 0.4 mg 06/03/18 12:00 06/18/18 09:02 Flomax PO Not Given QDAY [facility] Thiamine HCl 100 mg 06/04/18 10:00 06/18/18 09:02 Vitamin B-1 PO Not Given QDAY CINDA
[2018-06-19] MEDS: LOVENOX SUB-Q SCH (09:03)
[2018-06-19] MEDS: PROTONIX PO SCH (09:03)
[2018-06-19] MEDS: FLOMAX PO SCH (09:03)
[2018-06-19] MEDS: FOLVITE PO SCH (09:03)
[2018-06-19] MEDS: Centrum Liq PO SCH (09:03)
[2018-06-19] MEDS: LOPRESSOR PO SCH ×2 (09:03→23:20)
[2018-06-19] MEDS: SODIUM CHLORIDE FLUSH SYRINGE 10 ML IV SCH ×2 (09:04→21:13)
[2018-06-19] MEDS: VITAMIN B-1 PO SCH (09:04)
[2018-06-19 09:24] LABS: Basophils % (Auto) 0.4 % (0.0-1.8); Eosinophils % (Auto) 0.5 % (0.0-4.3); Hematocrit 34.4 % (35.5-45.6); Hemoglobin 11.7 gm/dl (11.8-15.2); Lymphocytes # (Auto) 1.3 K/mm3 (1.2-5.4); Lymphocytes % (Auto) 11.8 % (13.4-35.0); Mean Corpuscular HGB Conc 34 % (32-34); Mean Corpuscular Volume 98 fl (84-94); Monocytes # (Auto) 0.5 K/mm3 (0.0-0.8); Monocytes % (Auto) 4.9 % (0.0-7.3); Red Cell Distribution Width 13.6 % (13.2-15.2)
[2018-06-19 09:34] LABS: Platelet Count 98 K/mm3 (140-440)
[2018-06-19 09:45] LABS: BUN/Creatinine Ratio 41; Blood Urea Nitrogen 29 mg/dL (9-20); Calcium 7.6 mg/dL (8.4-10.2); Hemolysis Index 15
--- NOTE | 2018-06-19 10:56 | XRay Report ---
Single view chest: Compared to 06/17/18. CAD study utilized. History: Fever. Findings: Normal cardiomediastinal silhouette. Trachea is midline. No definite acute consolidation, pneumothorax or pleural effusion. Impression: No acute cardiopulmonary findings
--- NOTE | 2018-06-19 11:31 | Progress Note ---
Assessment and Plan Assessment and plan: 72-year-old man with history of alcoholism and likely dementia which has not been diagnosed with suspected by family. The patient's and he was dependent on her past the week 2 weeks prior. He was home by himself, is apparently drinking heavily not eating and not. He had been confused per his son and neighbors. His son and asked him to go to the ER , then he called the EMS. The patient was found to have a very low sodium, agitated and confused. CT head no acute findings Chest x-ray no acute findings -The patient is on [facility] protocol for alcohol withdrawal. He is now out of the window for alcohol withdrawal -He was counseled on tobacco cessation, time spent greater than 10 minutes -The patient was initially very hyponatremic when he came to the hospital, he r eceived saline IV, salt tabs and his potassium was replaced. -The patient developed urinary retention, therefore [place] catheter placed -He received a course of steroids and nebulizers for COPD exacerbation, now improved. -he had very poor by mouth intake, he was only taking sips of drinks some barely consuming any food. 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 -dc to SNF with hospice when improved Diagnoses Afib with RVR, PAF hypercoaguable state Alcohol dependence and withdrawal Acute metabolic encephalopathy Severe hyponatremia, now resolved mild hypernatremia- d5w drip Hypercholesteremia Beer potomania severe malnutrition COPD exacerbation Tobacco abuse, current every day smoker Acute hypoxic respiratory failure Dementia severe malnutrition Sepsis UTI -Urinary retention/obstructive uropathy - History Interval history: Patient has been confused, he is less agitated Review of systems Constitutional: No fevers, no malaise, no joint pains CVS: No chest pain, no orthopnea, no dyspnea on exertion, no pedal edema GI: No abdominal pain, no diarrhea, no vomiting, no constipation has not been eating Respiratory: no sob or cough Hospitalist Physical - Physical exam Narrative exam: General.: , nontoxic HEENT: Moist mucous membranes, extraocular muscles intact, no lymphadenopathy Neck: supple Cardiac: S1-S2 heard Lungs: CTA Abdomen: soft , nontender, nondistended, bowel sounds positive Extremities: no edema clubbing or cyanosis Skin: no rash or lesions Neurologic: Confused, moves all extremities Psych: calm, - Constitutional Vitals: Temp Pulse Resp BP Pulse Ox 98.0 F 114 H 20 123/65 100 06/19/18 07:42 06/19/18 10:00 06/19/18 07:42 06/19/18 07:42 06/19/18 10:00 General appearance: Present: no acute distress Results - Labs CBC & Chem 7: 06/21/18 11:55 06/21/18 14:49 Labs: Laboratory Last Values WBC 10.6 K/mm3 (4.5-11.0) 06/19/18 09:10 RBC 3.50 M/mm3 (3.65-5.03) L 06/19/18 09:10 Hgb 11.7 gm/dl (11.8-15.2) L 06/19/18 09:10 Hct 34.4 % (35.5-45.6) L 06/19/18 09:10 MCV 98 fl (84-94) H 06/19/18 09:10 MCH 33 pg (28-32) H 06/19/18 09:10 MCHC 34 % (32-34) 06/19/18 09:10 RDW 13.6 % (13.2-15.2) 06/19/18 09:10 Plt Count 98 K/mm3 (140-440) L 06/19/18 09:10 Lymph % (Auto) 11.8 % (13.4-35.0) L 06/19/18 09:10 [place] % (Auto) 4.9 % (0.0-7.3) 06/19/18 09:10 Eos % (Auto) 0.5 % (0.0-4.3) 06/19/18 09:10 Baso % (Auto) 0.4 % (0.0-1.8) 06/19/18 09:10 Lymph # 1.3 K/mm3 (1.2-5.4) 06/19/18 09:10 [place] # 0.5 K/mm3 (0.0-0.8) 06/19/18 09:10 Eos # 0.0 K/mm3 (0.0-0.4) 06/19/18 09:10 Baso # 0.0 K/mm3 (0.0-0.1) 06/19/18 09:10 Add Manual Diff Complete 06/04/18 09:47 Total Counted 100 06/04/18 09:47 Seg Neutrophils % 82.4 % (40.0-70.0) H 06/19/18 09:10 Seg Neuts % (Manual) 92.0 % (40.0-70.0) H 06/04/18 09:47 Band Neutrophils % 0 % 06/04/18 09:47 Lymphocytes % (Manual) 5.0 % (13.4-35.0) L 06/04/18 09:47 Reactive Lymphs % (Man) 0 % 06/04/18 09:47 Monocytes % (Manual) 3.0 % (0.0-7.3) 06/04/18 09:47 Eosinophils % (Manual) 0 % (0.0-4.3) 06/04/18 09:47 Basophils % (Manual) 0 % (0.0-1.8) 06/04/18 09:47 Metamyelocytes % 0 % 06/04/18 09:47 Myelocytes % 0 % 06/04/18 09:47 Promyelocytes % 0 % 06/04/18 09:47 Blast Cells % 0 % 06/04/18 09:47 Nucleated RBC % Not Reportable 06/04/18 09:47 Seg Neutrophils # 8.8 K/mm3 (1.8-7.7) H 06/19/18 09:10 Seg Neutrophils # Man 4.9 K/mm3 (1.8-7.7) 06/04/18 09:47 Band Neutrophils # 0.0 K/mm3 06/04/18 09:47 Lymphocytes # (Manual) 0.3 K/mm3 (1.2-5.4) L 06/04/18 09:47 Abs React Lymphs (Man) 0.0 K/mm3 06/04/18 09:47 Monocytes # (Manual) 0.2 K/mm3 (0.0-0.8) 06/04/18 09:47 Eosinophils # (Manual) 0.0 K/mm3 (0.0-0.4) 06/04/18 09:47 Basophils # (Manual) 0.0 K/mm3 (0.0-0.1) 06/04/18 09:47 Metamyelocytes # 0.0 K/mm3 06/04/18 09:47 Myelocytes # 0.0 K/mm3 06/04/18 09:47 Promyelocytes # 0.0 K/mm3 06/04/18 09:47 Blast Cells # 0.0 K/mm3 06/04/18 09:47 WBC Morphology Not Reportable 06/04/18 09:47 Hypersegmented Neuts Not Reportable 06/04/18 09:47 Hyposegmented Neuts Not Reportable 06/04/18 09:47 Hypogranular Neuts Not Reportable 06/04/18 09:47 Smudge Cells Not Reportable 06/04/18 09:47 Toxic Granulation 1+ 06/04/18 09:47 Toxic Vacuolation Not Reportable 06/04/18 09:47 Dohle Bodies Not Reportable 06/04/18 09:47 Pelger-Huet Anomaly Not Reportable 06/04/18 09:47 Dashawn Rods Not Reportable 06/04/18 09:47 Platelet Estimate Consistent w auto 06/04/18 09:47 Clumped Platelets Not Reportable 06/04/18 09:47 Plt Clumps, EDTA Not Reportable 06/04/18 09:47 Large Platelets Not Reportable 06/04/18 09:47 Giant Platelets Not Reportable 06/04/18 09:47 Platelet Satelliting Not Reportable 06/04/18 09:47 Plt Morphology Comment Not Reportable 06/04/18 09:47 RBC Morphology Normal 06/04/18 09:47 Dimorphic RBCs Not Reportable 06/04/18 09:47 Polychromasia Not Reportable 06/04/18 09:47 Hypochromasia Not Reportable 06/04/18 09:47 Poikilocytosis Not Reportable 06/04/18 09:47 Anisocytosis Not Reportable 06/04/18 09:47 Microcytosis Not Reportable 06/04/18 09:47 Macrocytosis Not Reportable 06/04/18 09:47 Spherocytes Not Reportable 06/04/18 09:47 Pappenheimer Bodies Not Reportable 06/04/18 09:47 Sickle Cells Not Reportable 06/04/18 09:47 Target Cells Not Reportable 06/04/18 09:47 Tear Drop Cells Not Reportable 06/04/18 09:47 Ovalocytes Not Reportable 06/04/18 09:47 Helmet Cells Not Reportable 06/04/18 09:47 [place] Bodies Not Reportable 06/04/18 09:47 [place] Rings Not Reportable 06/04/18 09:47 Mic Cells Not Reportable 06/04/18 09:47 Bite Cells Not Reportable 06/04/18 09:47 Crenated Cell Not Reportable 06/04/18 09:47 Elliptocytes Not Reportable 06/04/18 09:47 Acanthocytes (Spur) Not Reportable 06/04/18 09:47 Rouleaux Not Reportable 06/04/18 09:47 Hemoglobin C Crystals Not Reportable 06/04/18 09:47 Schistocytes Not Reportable 06/04/18 09:47 Malaria parasites Not Reportable 06/04/18 09:47 Rajesh Bodies Not Reportable 06/04/18 09:47 Hem Pathologist Commnt No 06/04/18 09:47 PT 16.6 Sec. (12.2-14.9) H 06/18/18 05:06 INR 1.26 (0.87-1.13) H 06/18/18 05:06 Sodium 146 mmol/L (137-145) H 06/19/18 09:10 Potassium 4.5 mmol/L (3.6-5.0) D 06/19/18 09:10 Chloride 107.3 mmol/L (98-107) H 06/19/18 09:10 Carbon Dioxide 26 mmol/L (22-30) 06/19/18 09:10 Anion Gap 17 mmol/L 06/19/18 09:10 BUN 29 mg/dL (9-20) H 06/19/18 09:10 Creatinine 0.7 mg/dL (0.8-1.5) L 06/19/18 09:10 Estimated GFR > 60 ml/min 06/19/18 09:10 BUN/Creatinine Ratio 41 % 06/19/18 09:10 Glucose 74 mg/dL (75-100) L 06/19/18 09:10 POC Glucose 70 (70-105) 06/18/18 21:43 Osmolality 312 Mosm/kg 06/18/18 11:19 Uric Acid 3.5 mg/dL (3.5-7.6) 06/18/18 11:19 Calcium 7.6 mg/dL (8.4-10.2) L 06/19/18 09:10 Phosphorus 3.90 mg/dL (2.5-4.5) 06/04/18 09:47 Magnesium 2.60 mg/dL (1.7-2.3) H 06/17/18 08:21 Total Bilirubin 1.00 mg/dL (0.1-1.2) 06/17/18 08:21 Direct Bilirubin < 0.2 mg/dL (0-0.2) 06/04/18 04:39 Indirect Bilirubin 0.2 mg/dL 06/04/18 04:39 AST 26 units/L (5-40) 06/17/18 08:21 ALT 30 units/L (7-56) 06/17/18 08:21 Alkaline Phosphatase 49 units/L (35-129) 06/17/18 08:21 Ammonia 55.0 umol/L (25-60) 06/16/18 17:33 Total Creatine Kinase 420 units/L (55-170) H 06/02/18 21:25 Troponin T < 0.010 ng/mL (0.00-0.029) 06/02/18 21:25 NT-Pro-B Natriuret Pep 379.8 pg/mL (0-900) 06/02/18 21:25 Total Protein 5.2 g/dL (6.3-8.2) L 06/17/18 08:21 Albumin 2.9 g/dL (3.9-5) L 06/17/18 08:21 Albumin/Globulin Ratio 1.3 % 06/17/18 08:21 Vitamin B12 697.5 pg/mL (211-911) 06/16/18 17:33 TSH 1.100 mlU/mL (0.270-4.200) 06/03/18 20:45 Urine Color Yellow (Yellow) 06/16/18 03:20 Urine Turbidity Cloudy (Clear) 06/16/18 03:20 Urine pH 5.0 (5.0-7.0) 06/16/18 03:20 Ur Specific [place] 1.020 (1.003-1.030) 06/16/18 03:20 Urine Protein <15 mg/dl mg/dL (Negative) 06/16/18 03:20 Urine Glucose (UA) Neg mg/dL (Negative) 06/16/18 03:20 Urine Ketones Neg mg/dL (Negative) 06/16/18 03:20 Urine Blood Sm (Negative) 06/16/18 03:20 Urine Nitrite Neg (Negative) 06/16/18 03:20 Urine Bilirubin Neg (Negative) 06/16/18 03:20 Urine Urobilinogen < 2.0 mg/dL (<2.0) 06/16/18 03:20 Ur Leukocyte Esterase Lg (Negative) 06/16/18 03:20 Urine WBC (Auto) 89.0 /HPF (0.0-6.0) H 06/16/18 03:20 Urine RBC (Auto) 10.0 /HPF (0.0-6.0) 06/16/18 03:20 U Epithel Cells (Auto) 2.0 /HPF (0-13.0) 06/16/18 03:20 Urine Bacteria (Auto) 1+ /HPF (Negative) 06/16/18 03:20 Urine Mucus Few /HPF 06/16/18 03:20 Urine Yeast (Budding) 1+ /HPF 06/16/18 03:20 Urine Osmolality 203 Mosm/kg 06/02/18 22:02 Urine Sodium 66 mmol/L 06/18/18 10:05 RPR Nonreactive (Nonreactive) 06/16/18 17:33 Active Medications - Current Medications Current Medications: Generic Name Dose Route Start Last Admin Trade Name Freq PRN Reason Stop Dose Admin Acetaminophen 650 mg 06/03/18 00:05 06/13/18 03:03 Tylenol PO 650 mg Q4H PRN Administration Pain MILD(1-3)/Fever >100.5/CHANCE Acetaminophen 650 mg 06/16/18 15:03 06/19/18 07:46 Tylenol [place] 650 mg Q4H PRN Administration Non Cardiac Pain or Temp>100.5 Albuterol 2.5 mg 06/03/18 13:11 06/03/18 15:01 Proventil IH 2.5 mg Q4HRT PRN Administration Shortness Of Breath Albuterol/Ipratropium 1 ampul 06/05/18 20:00 06/19/18 08:34 Duoneb *Not For Prn Use* IH 1 ampul TIDRT CINDA Administration Arformoterol Tartrate 15 mcg 06/03/18 20:00 06/19/18 08:34 Brovana Nebu IH 15 mcg Q12HRT CINDA Administration Budesonide 0.5 mg 06/03/18 20:00 06/19/18 08:34 Pulmicort IH 0.5 mg Q12HRT CINDA Administration Clonidine HCl 0.1 mg 06/11/18 22:00 06/18/18 22:23 Catapres PO Not Given HS CINDA Enoxaparin Sodium 40 mg 06/03/18 10:00 06/19/18 09:03 Lovenox SUB-Q Not Given QDAY@1000 CINDA Folic Acid 1 mg 06/04/18 10:00 06/19/18 09:03 Folvite PO Not Given QDAY CINDA Haloperidol Lactate 5 mg 06/09/18 09:51 06/18/18 22:24 Haldol IM 5 mg Q6H PRN Administration Acute Psychosis Hydralazine HCl 10 mg 06/06/18 12:10 06/09/18 14:26 Apresoline IV 10 mg Q4H PRN Administration BP >160/100 Dextrose 1,000 mls @ 100 mls/hr 06/17/18 13:00 06/19/18 03:46 D5w IV 100 mls/hr DIRECT CINDA Administration Ampicillin Sodium/Sulbactam Sodium 3 gm in 100 mls @ 200 mls/hr 06/17/18 18:00 06/19/18 11:27 Unasyn/Ns 3 Gm/100 Ml IV 200 mls/hr Q6HR CINDA Administration Protocol Lorazepam 2 mg 06/03/18 14:00 Ativan PO Q1H PRN CIWA-Ar 8-15 Lorazepam 4 mg 06/03/18 14:00 06/17/18 15:59 Ativan IV 4 mg Q1H PRN Administration CIWA-Ar 16-25 Lorazepam 4 mg 06/03/18 14:00 Ativan IV Q15MIN PRN CIWA-Ar >25 Melatonin 5 mg 06/07/18 19:41 06/10/18 23:30 Melatonin PO 5 mg QHS PRN Administration Sleep Metoprolol Tartrate 50 mg 06/11/18 10:00 06/19/18 09:03 Lopressor PO Not Given BID CINDA Mirtazapine 15 mg 06/10/18 22:00 06/18/18 22:24 Remeron PO Not Given QHS [facility] Multivitamins 5 ml 06/04/18 10:00 06/19/18 09:03 Centrum Liq PO Not Given QDAY [facility] Ondansetron HCl 4 mg 06/03/18 00:05 Zofran IV Q8H PRN Nausea And Vomiting Pantoprazole Sodium 40 mg 06/06/18 10:00 06/19/18 09:03 Protonix PO Not Given DAILY [facility] Sodium Chloride 10 ml 06/03/18 10:00 06/19/18 09:04 Sodium Chloride Flush Syringe 10 Ml IV 10 ml BID CINDA Administration Sodium Chloride 10 ml 06/03/18 00:05 Sodium Chloride Flush Syringe 10 Ml IV PRN PRN LINE FLUSH Tamsulosin HCl 0.4 mg 06/03/18 12:00 06/19/18 09:03 Flomax PO Not Given QDAY [facility] Thiamine HCl 100 mg 06/04/18 10:00 06/19/18 09:04 Vitamin B-1 PO Not Given QDAY [facility] Nutrition/Malnutrition Assess - Dietary Evaluation Nutrition/Malnutrition Findings: Nutrition Notes Start: 06/09/18 14:29 Freq: Status: Active Protocol: Document 06/17/18 11:45 TW (Rec: 06/17/18 11:56 TW [id number]) Co-Sign 06/17/18 11:45 LP Nutrition Notes Initial or Follow up Reassessment Current Diagnosis COPD,Hypertension,Heart Failure Other Pertinent Diagnosis Alcoholic Hx, AMS, UTI, Dementia, Metabolic encephalopathy Current Diet NPO Labs/Tests Reviewed Pertinent Medications Solu-Medrol Height 5 ft 10 in Weight 57.3 kg Calcium Body Weight (kg) 75.45 BMI 18.1 Subjective/Other Information Per RN, pt failed swallow evaluation and RN will discuss with GI the POC and need for a PEG tube. Pt has not taken anything in by mouth today. Burn Absent Trauma Absent #1 Nutrition Diagnosis Inadequate oral intake Diagnosis Progress(for reassessment Continues documentation) Is patient on ventilator? No Is Patient Ambulatory and/or Out of Bed No REE-([place] [facility]-confined to bed) [phone] Kcal/Kg value to use for calculation 32 Approximate Energy Requirements Using 1834 kcal/Kg Additional Notes Protein Needs: 61-73g (1-1.2g/ kg) Fluid Needs: 1 ml/kcal Nutrition Intervention Change Diet Order: TF when medically feasible Nutrition Support: Osmolite 1.5 at 55 ml/hr Water Flush 150ml q4h. Kcal 1,980 Protein (gm) 82 Fluid (mL) 1,005 Goal #1 TF initiation Anticipated Discharge Needs: Unable to determine at this time Follow-Up By: 06/20/18 Additional Comments F/U for POC and TF initiation
--- NOTE | 2018-06-19 13:54 | Gastroenterology Progress Note ---
Assessment and Plan 1.PEG placement -failed [employer]ERGY OPERATIONS VICE PRESIDENT eval yesterday -called and spoke with patient's son (Tom Aguilar [phone]) and confirmed wishes/agreement to proceed with PEG placement -will schedule for EGD with PEG tomorrow -Keep NPO after MN -hold am dose of lovenox -continue supportive care -electrolyte management per primary team -will follow 2.acute metabolic enceophalopathy 3.alcohol dependence with withdrawal -LFTs WNL, plt 107 (WNL on admission) 4.hyponatremia 5.UTI suspected-on antibiotics 6.Afib with RVR-now SR 7.acute hypoxic respiratory failure with COPD exacerbation-O2 sat 99% on NC 8.dementia 9.severe malnutrition Subjective Date of service: 06/19/18 Principal diagnosis: PEG placement Interval history: Patient resting in bed w/o acute distress. Remains confused. No evidence of abd pain or N/V. Objective - Constitutional Vitals: Temp Pulse Resp BP Pulse Ox 101.9 F H 114 H 20 106/56 100 06/19/18 13:25 06/19/18 10:00 06/19/18 13:25 06/19/18 13:25 06/19/18 10:00 General appearance: no acute distress, other (confused, in retraints) - Respiratory Respiratory: bilateral: diminished - Cardiovascular Rhythm: other (tachycardia) - Gastrointestinal General gastrointestinal: Present: soft, non-distended, normal bowel sounds - Labs CBC & Chem 7: 06/19/18 09:10 06/19/18 09:10 Labs: Laboratory Results - last 24 hr 06/18/18 06/18/18 06/19/18 11:19 21:43 09:10 WBC 10.6 RBC 3.50 L Hgb 11.7 L Hct 34.4 L MCV 98 H MCH 33 H MCHC 34 RDW 13.6 Plt Count 98 L Lymph % (Auto) 11.8 L [place] % (Auto) 4.9 Eos % (Auto) 0.5 Baso % (Auto) 0.4 Lymph # 1.3 [place] # 0.5 Eos # 0.0 Baso # 0.0 Seg Neutrophils % 82.4 H Seg Neutrophils # 8.8 H Sodium Potassium Chloride Carbon Dioxide Anion Gap BUN Creatinine Estimated GFR BUN/Creatinine Ratio Glucose POC Glucose 70 Osmolality 312 Calcium 05/02/19 09:10 WBC RBC Hgb Hct MCV MCH MCHC RDW Plt Count Lymph % (Auto) [place] % (Auto) Eos % (Auto) Baso % (Auto) Lymph # [place] # Eos # Baso # Seg Neutrophils % Seg Neutrophils # Sodium 146 H Potassium 4.5 D Chloride 107.3 H Carbon Dioxide 26 Anion Gap 17 BUN 29 H Creatinine 0.7 L Estimated GFR > 60 BUN/Creatinine Ratio 41 Glucose 74 L POC Glucose Osmolality Calcium 7.6 L
--- NOTE | 2018-06-19 14:28 | Progress Note ---
Assessment and Plan Acute COPD exacerbation Acute Hyponatremia Acute Encephalopathy (? Wernicke's) EtOH Abuse - continue Albuterol/Atrovent aerosol treatments q6hrs - off solumedrol - continue supplemental oxygen as necessary to keep O2 sat's > 90% - continue thiamine and folic acid - Continue Lovenox - Continue Protonix - complete AB's per ID rec's (on Unasyn) - PT/OT/increase ambulation - aspiration and falls precautions - continue other care per attending / other consultants ... will likely need placement ... re-evaluate in am & prn Subjective Date of service: 06/19/18 Principal diagnosis: AE-COPD; Acute metabolic-toxic encephalopathy; hyponatremia Interval history: Patient is seen today for: AE-COPD; Acute metabolic-toxic encephalopathy; hyponatremia Seen and examined at bedside; 24hour events reviewed; nursing and respiratory care staff consulted; no adverse overnight events reported to me; resting in bed; a littl;e more coherent; still tremulous; denies acute chest pains; remains on supplemental oxygen therapy Objective Vital Signs - 12hr 06/19/18 06/19/18 06/19/18 02:40 02:53 07:42 Temperature 99.9 F H 98.3 F 98.0 F Pulse Rate 67 Pulse Rate [ From Monitor] Respiratory 18 20 Rate Blood Pressure 106/54 123/65 O2 Sat by Pulse 100 Oximetry 06/19/18 06/19/18 10:00 13:25 Temperature 101.9 F H Pulse Rate 114 H Pulse Rate [ 114 H From Monitor] Respiratory 20 Rate Blood Pressure 106/56 O2 Sat by Pulse 100 Oximetry Constitutional: no acute distress, lethargic, other (elderly and chronically ill looking CM with mildly increased respiratory effort at rest) Eyes: non-icteric ENT: oropharynx moist Neck: supple, no JVD, other (no thyromegaly) Effort: mildly labored Ascultation: Bilateral: diminished breath sounds, other (prolonged expiratory phase) Percussion: Bilateral: not dull Cardiovascular: regular rate and rhythm Gastrointestinal: normoactive bowel sounds, soft, non-tender, non-distended Integumentary: normal Extremities: no cyanosis, no edema, pink and warm, pulses normal Neurologic: non-focal exam (grossly), pupils equal and round, CN II-XII normal Psychiatric: other (delirious) CBC and BMP: 06/19/18 09:10 06/19/18 09:10 ABG, PT/INR, D-dimer: PT/INR, D-dimer PT 16.6 Sec. (12.2-14.9) H 06/18/18 05:06 INR 1.26 (0.87-1.13) H 06/18/18 05:06 Abnormal lab findings: Abnormal Labs 06/02/18 06/02/18 06/02/18 21:25 21:25 22:03 WBC RBC Hgb Hct MCV MCH 33 H MCHC 35 H RDW 12.8 L Plt Count Lymph % (Auto) Seg Neutrophils % Seg Neuts % (Manual) 80.0 H Lymphocytes % (Manual) Seg Neutrophils # Lymphocytes # (Manual) 0.8 L PT INR Sodium 109 L* Potassium Chloride 71.3 L Carbon Dioxide BUN 6 L Creatinine 0.5 L Glucose Calcium Magnesium Ammonia Total Creatine Kinase 420 H Total Protein Albumin Urine WBC (Auto) 24.0 H 06/03/18 06/03/18 06/03/18 00:15 06:27 09:42 WBC RBC Hgb Hct MCV MCH MCHC RDW Plt Count Lymph % (Auto) Seg Neutrophils % Seg Neuts % (Manual) Lymphocytes % (Manual) Seg Neutrophils # Lymphocytes # (Manual) PT INR Sodium 113 L* 118 L* 116 L* Potassium 3.5 L 3.5 L Chloride 77.2 L 79.1 L 78.2 L Carbon Dioxide BUN 5 L 4 L 4 L Creatinine 0.4 L 0.5 L 0.4 L Glucose Calcium 8.2 L 7.9 L 8.1 L Magnesium Ammonia Total Creatine Kinase Total Protein Albumin Urine WBC (Auto) 06/03/18 06/03/18 06/03/18 14:41 14:41 20:45 WBC RBC Hgb Hct MCV MCH MCHC RDW Plt Count Lymph % (Auto) Seg Neutrophils % Seg Neuts % (Manual) Lymphocytes % (Manual) Seg Neutrophils # Lymphocytes # (Manual) PT INR Sodium 114 L* 118 L* Potassium 3.1 L Chloride 76.3 L 79.7 L Carbon Dioxide BUN 4 L 3 L Creatinine 0.5 L 0.4 L Glucose Calcium 8.1 L 8.3 L Magnesium Ammonia 23.0 L Total Creatine Kinase Total Protein Albumin Urine WBC (Auto) 06/04/18 06/04/18 06/04/18 04:39 09:47 09:47 WBC RBC Hgb Hct MCV 95 H MCH 33 H MCHC RDW 12.8 L Plt Count Lymph % (Auto) Seg Neutrophils % Seg Neuts % (Manual) 92.0 H Lymphocytes % (Manual) 5.0 L Seg Neutrophils # Lymphocytes # (Manual) 0.3 L PT INR Sodium 123 L Potassium Chloride 85.2 L Carbon Dioxide BUN 5 L Creatinine 0.5 L Glucose 129 H Calcium 8.3 L Magnesium Ammonia Total Creatine Kinase Total Protein 5.5 L Albumin 3.1 L Urine WBC (Auto) 06/05/18 06/06/18 06/07/18 04:29 05:25 07:11 WBC RBC Hgb Hct MCV MCH MCHC RDW Plt Count Lymph % (Auto) Seg Neutrophils % Seg Neuts % (Manual) Lymphocytes % (Manual) Seg Neutrophils # Lymphocytes # (Manual) PT INR Sodium 126 L 133 L D 126 L D Potassium Chloride 90.4 L 95.1 L 86.1 L Carbon Dioxide BUN 8 L Creatinine 0.5 L 0.5 L 0.5 L Glucose 170 H 123 H 129 H Calcium 8.2 L 8.1 L Magnesium Ammonia Total Creatine Kinase Total Protein Albumin Urine WBC (Auto) 06/08/18 06/09/18 06/10/18 11:03 06:13 07:14 WBC RBC Hgb Hct MCV MCH MCHC RDW Plt Count Lymph % (Auto) Seg Neutrophils % Seg Neuts % (Manual) Lymphocytes % (Manual) Seg Neutrophils # Lymphocytes # (Manual) PT INR Sodium 134 L D Potassium Chloride 92.2 L Carbon Dioxide 31 H BUN Creatinine 0.5 L 0.6 L 0.5 L Glucose 106 H 130 H 126 H Calcium Magnesium Ammonia Total Creatine Kinase Total Protein Albumin Urine WBC (Auto) 06/11/18 06/12/18 06/13/18 10:23 04:58 05:33 WBC RBC Hgb Hct MCV MCH MCHC RDW Plt Count Lymph % (Auto) Seg Neutrophils % Seg Neuts % (Manual) Lymphocytes % (Manual) Seg Neutrophils # Lymphocytes # (Manual) PT INR Sodium 136 L 134 L Potassium 3.5 L Chloride Carbon Dioxide BUN 27 H Creatinine 0.4 L 0.5 L 0.6 L Glucose 155 H 141 H 112 H Calcium 8.1 L 7.9 L 8.3 L Magnesium Ammonia Total Creatine Kinase Total Protein Albumin Urine WBC (Auto) 06/13/18 06/14/18 06/14/18 05:33 05:14 05:14 WBC 12.6 H 12.3 H RBC Hgb Hct MCV 97 H 98 H MCH 33 H MCHC RDW Plt Count 133 L Lymph % (Auto) Seg Neutrophils % Seg Neuts % (Manual) Lymphocytes % (Manual) Seg Neutrophils # Lymphocytes # (Manual) PT INR Sodium 146 H Potassium Chloride 107.2 H Carbon Dioxide BUN 31 H Creatinine 0.6 L Glucose 113 H Calcium Magnesium Ammonia Total Creatine Kinase Total Protein Albumin Urine WBC (Auto) 06/15/18 06/15/18 06/16/18 04:47 04:47 03:20 WBC 16.7 H RBC Hgb Hct MCV 97 H MCH MCHC RDW Plt Count 138 L Lymph % (Auto) Seg Neutrophils % Seg Neuts % (Manual) Lymphocytes % (Manual) Seg Neutrophils # Lymphocytes # (Manual) PT INR Sodium 146 H Potassium Chloride 109.2 H Carbon Dioxide BUN 32 H Creatinine 0.6 L Glucose 124 H Calcium 7.8 L Magnesium Ammonia Total Creatine Kinase Total Protein Albumin Urine WBC (Auto) 89.0 H 06/16/18 06/17/18 06/17/18 05:22 08:21 08:21 WBC 11.4 H RBC Hgb Hct MCV 98 H MCH 33 H MCHC RDW Plt Count 107 L Lymph % (Auto) Seg Neutrophils % Seg Neuts % (Manual) Lymphocytes % (Manual) Seg Neutrophils # Lymphocytes # (Manual) PT INR Sodium 146 H 146 H Potassium Chloride 109.0 H 109.2 H Carbon Dioxide BUN 39 H 47 H Creatinine Glucose 120 H 109 H Calcium 7.9 L 8.3 L Magnesium 2.60 H Ammonia Total Creatine Kinase Total Protein 5.2 L Albumin 2.9 L Urine WBC (Auto) 06/18/18 06/19/18 06/19/18 05:06 09:10 09:10 WBC RBC 3.50 L Hgb 11.7 L Hct 34.4 L MCV 98 H MCH 33 H MCHC RDW Plt Count 98 L Lymph % (Auto) 11.8 L Seg Neutrophils % 82.4 H Seg Neuts % (Manual) Lymphocytes % (Manual) Seg Neutrophils # 8.8 H Lymphocytes # (Manual) PT 16.6 H INR 1.26 H Sodium 146 H Potassium Chloride 107.3 H Carbon Dioxide BUN 29 H Creatinine 0.7 L Glucose 74 L Calcium 7.6 L Magnesium Ammonia Total Creatine Kinase Total Protein Albumin Urine WBC (Auto) Allied health notes reviewed: nursing
[2018-06-19] MEDS: MORPHINE IV PRN ×2 (16:55→21:11)
[2018-06-19] MEDS: CATAPRES PO SCH (23:19)
[2018-06-19] MEDS: REMERON PO SCH (23:21)
[2018-06-20] MEDS: MORPHINE IV PRN ×2 (01:28→07:25)
[2018-06-20] MEDS: D5W 1,000 ML IV SCH ×2 (04:42→17:08)
[2018-06-20] MEDS: UNASYN/NS 3 GM/100 ML 3 GM/100 ML BAG IV SCH (06:03)
[2018-06-20] MEDS: PULMICORT IH SCH ×2 (08:38→20:15)
[2018-06-20] MEDS: BROVANA NEBU IH SCH ×2 (08:38→20:15)
[2018-06-20] MEDS: DUONEB *Not for PRN Use IH SCH ×3 (08:38→20:16)
--- NOTE | 2018-06-20 08:55 | Progress Note ---
Assessment and Plan Cultures: Blood culture 06/13/2018 no growth Blood culture: 06/19/2018: no growth in 24 hours Urine culture grew multiple sp <10 Urine culture 06/16/2018 10-100K Enterococcus. Assessment: 72 y/o male with history of alcoholism,tobacco use, COPD and dementia admitted on 06/02/2018 due to AMS/confusion: 1) Sepsis: NOT Present on admission.Continuing to spike fevers, noted Seg neutrophils 82.4. Etiology most likely UTI., +/- drug fever. CXR negative. Blood culture 06/13/2018 no growth. Repeat blood culture no growth thus far. Discontinue unasyn to r/o possible drug fever. Start Vancomycin and Cefepime. Discontinue Unasyn. 2) UTI: mild UTI present on admission, however worsening. UA showed wbc 24, large LE. Urine culture grew multiple sp <10. A zuniga was placed and then removed. Repeat UA showed wbc 89, large LE. Urine culture 06/16/2018 10-100K Enterococcus. Abdominal US shows no evidence of hydronephrosis. The urinary bladder appears distended, but smooth in contour. No evidence of gallstones or cholecystitis. 3) Acute on chronic encephalopathy: multifactorial- dementia, ETOH, hyponatremia and UTI. Brain MRI shows global cortical atrophy and otherwise negative. No evidence of acute/subacute infarct or hemorrhage. 4) Acute urinary retention: Improved. Zuniga catheter 5) Hyponatremia: Improved. initial Na 109, now 146. 6) Severe malnutrition: failed swallow study, EGD and PEG placement scheduled f or today. GI following. 7) Acute Respiratory Failure: probably related to COPD exacerbation. Moved to [facility] for closer monitoring. Recommendations: -discontinue unasyn start vancomyin and cefepime -f/u blood cultures -f/u CT of abdomen and venous ultrasound - if negative will consider lumbar p uncture Dr. Rainey will be radiation control technician this weekend. Please call [phone] for questions. [facility] M: [id number] O:[phone] Subjective Date of service: 06/20/18 Principal diagnosis: AE-COPD; Acute metabolic-toxic encephalopathy; hyponatremia Interval history: Patient seen and examined. Garbled speech, agitated and diaphoretic on exam. +fevers. Discussion with floor nurse at bedside. Objective - Exam Narrative Exam: General appearance: Awake. Alert Garbled speech. Acute distress observed. Cac hexia. Eyes: anicteric sclerae, moist conjunctivae; no lid-lag; PERRLA HENT: Atraumatic; oropharynx limited Neck: Trachea midline; supple, no thyromegaly or lymphadenopathy Lungs: CTA CV: tachycardic Abdomen: Soft, +suprapubic tenderness Extremities: No peripheral edema or extremity lymphadenopathy Skin: Diaphoretic, +temperature Psych: agitated Neuro: alert agitated - Constitutional Vitals: Vital Signs Temp Pulse Resp BP Pulse Ox 98.0 F 85 20 107/72 92 06/20/18 07:15 06/20/18 07:15 06/20/18 07:15 06/20/18 07:15 06/20/18 07:15 Temperature -Last 24 Hours Temperature 98.0 F Temperature 97.9 F Temperature 99.2 F Temperature 101.9 F - Labs CBC & Chem 7: 06/19/18 09:10 06/19/18 09:10 Labs: Abnormal lab results 06/19/18 06/19/18 Range/Units 09:10 09:10 RBC 3.50 L (3.65-5.03) M/mm3 Hgb 11.7 L (11.8-15.2) gm/dl Hct 34.4 L (35.5-45.6) % MCV 98 H (84-94) fl MCH 33 H (28-32) pg Plt Count 98 L (140-440) K/mm3 Lymph % (Auto) 11.8 L (13.4-35.0) % Seg Neutrophils % 82.4 H (40.0-70.0) % Seg Neutrophils # 8.8 H (1.8-7.7) K/mm3 Sodium 146 H (137-145) mmol/L Chloride 107.3 H (98-107) mmol/L BUN 29 H (9-20) mg/dL Creatinine 0.7 L (0.8-1.5) mg/dL Glucose 74 L (75-100) mg/dL Calcium 7.6 L (8.4-10.2) mg/dL
[2018-06-20] MEDS: FOLVITE PO SCH (09:06)
[2018-06-20] MEDS: Centrum Liq PO SCH (09:06)
[2018-06-20] MEDS: FLOMAX PO SCH (09:06)
[2018-06-20] MEDS: LOPRESSOR PO SCH ×2 (09:07→22:02)
[2018-06-20] MEDS: LOVENOX SUB-Q SCH (09:07)
[2018-06-20] MEDS: PROTONIX PO SCH (09:07)
[2018-06-20] MEDS: SODIUM CHLORIDE FLUSH SYRINGE 10 ML IV SCH ×2 (09:08→21:59)
[2018-06-20] MEDS: VITAMIN B-1 PO SCH (09:08)
--- NOTE | 2018-06-20 09:12 | Progress Note ---
Subjective Principal diagnosis: AE-COPD; Acute metabolic-toxic encephalopathy; hyponatremia Interval history: Patient was seen today for follow-up on multiple renal related issues remains encephalopathic Vitals labs intake output medications were reviewed Social history: Reviewed Allergies: Reviewed Family history: Reviewed Physical examination HEENT: Oral mucosa dry no pallor or icterus Neck: Supple no JVD Chest: Clear to auscultation anteriorly CVS: Regular rate and rhythm S1 and S2 heard Abdomen: Soft nontender no suprapubic masses no organomegaly appreciable Extremity: Dry skin Dermatology: No petechial rashes is encephalopathic Assessment and plan; Mild hypernatremia serum sodium is only 146 normal renal function normal electrolytes otherwise, patient is in need for free water and that needs to be continued at 300 mL every 4 hours for the next 24 hours Overall he's stable from renal standpoint Hypermagnesemia avoid any magnesium supplements Urinary tract infection, sepsis being followed by infectious disease Encephalopathy multifactorial with underlying dementia and history of alcohol abuse global atrophy noted of the brain MRI Urinary retention improved with Barahona catheter, We'll continue to follow and make recommendation from renal standpoint Objective - Vital Signs Vital signs: Vital Signs - 12hr 06/19/18 06/19/18 06/19/18 22:00 23:19 23:20 Temperature Pulse Rate 71 111 H 111 H Respiratory Rate Blood Pressure 122/71 122/71 O2 Sat by Pulse Oximetry 06/20/18 06/20/18 06/20/18 02:58 02:59 07:15 Temperature 97.9 F 98.0 F Pulse Rate 66 85 Respiratory 18 20 Rate Blood Pressure 125/62 107/72 O2 Sat by Pulse 100 92 Oximetry - Lab 06/19/18 09:10 06/19/18 09:10 Most recent lab results Calcium 7.6 mg/dL (8.4-10.2) L 06/19/18 09:10 Phosphorus 3.90 mg/dL (2.5-4.5) 06/04/18 09:47 Magnesium 2.60 mg/dL (1.7-2.3) H 06/17/18 08:21 Urine Sodium 66 mmol/L 06/18/18 10:05 Medications & Allergies - Medications Allergies/Adverse Reactions: Allergies diphenhydramine HCl [From Benadryl] Allergy (Verified 09/24/14 11:56) Unknown HALLUCINATIONS Home Medications: Home Medications Medication Instructions Recorded Confirmed Last Taken Type Albuterol *Only Ed* [Proventil 2.5 mg IH Q4HRT PRN #1 nebu 10/03/14 06/03/18 Unknown Rx 0.5% NEBS] Folic Acid [Folvite] 1 mg PO QDAY #30 tablet 10/03/14 06/03/18 Unknown Rx Furosemide [Lasix TAB] 20 mg PO QDAY #30 tablet 10/03/14 06/03/18 Unknown Rx Metoprolol [Lopressor TAB] 12.5 mg PO BID #60 tablet 10/03/14 06/03/18 Unknown Rx Multivitamins Liq [Multiple 5 ml PO QDAY 30 Days oral.liqd 10/03/14 06/03/18 Unknown Rx Vitamin Liq (Theragran)] Thiamine [Vitamin B-1] 100 mg PO QDAY #30 tablet 10/03/14 06/03/18 Unknown Rx Active Medications: Generic Name Dose Route Start Last Admin Trade Name Freq PRN Reason Stop Dose Admin Acetaminophen 650 mg 06/03/18 00:05 06/13/18 03:03 Tylenol PO 650 mg Q4H PRN Administration Pain MILD(1-3)/Fever >100.5/CHANCE Acetaminophen 650 mg 06/16/18 15:03 06/19/18 07:46 Tylenol [place] 650 mg Q4H PRN Administration Non Cardiac Pain or Temp>100.5 Albuterol 2.5 mg 06/03/18 13:11 06/03/18 15:01 Proventil IH 2.5 mg Q4HRT PRN Administration Shortness Of Breath Albuterol/Ipratropium 1 ampul 06/05/18 20:00 06/20/18 08:38 Duoneb *Not For Prn Use* IH 1 ampul TIDRT CINDA Administration Arformoterol Tartrate 15 mcg 06/03/18 20:00 06/20/18 08:38 Brovana Nebu IH 15 mcg Q12HRT CINDA Administration Budesonide 0.5 mg 06/03/18 20:00 06/20/18 08:38 Pulmicort IH 0.5 mg Q12HRT CINDA Administration Clonidine HCl 0.1 mg 06/11/18 22:00 06/19/18 23:19 Catapres PO Not Given HS CINDA Enoxaparin Sodium 40 mg 06/03/18 10:00 06/20/18 09:07 Lovenox SUB-Q 40 mg QDAY@1000 CINDA Administration Folic Acid 1 mg 06/04/18 10:00 06/20/18 09:06 Folvite PO Not Given QDAY [facility] Haloperidol Lactate 5 mg 06/09/18 09:51 06/18/18 22:24 Haldol IM 5 mg Q6H PRN Administration Acute Psychosis Hydralazine HCl 10 mg 06/06/18 12:10 06/09/18 14:26 Apresoline IV 10 mg Q4H PRN Administration BP >160/100 Dextrose 1,000 mls @ 100 mls/hr 06/17/18 13:00 06/20/18 04:42 D5w IV 100 mls/hr DIRECT CINDA Administration Ampicillin Sodium/Sulbactam Sodium 3 gm in 100 mls @ 200 mls/hr 06/17/18 18:00 06/20/18 06:03 Unasyn/Ns 3 Gm/100 Ml IV 200 mls/hr Q6HR CINDA Administration Protocol Lorazepam 2 mg 06/03/18 14:00 Ativan PO Q1H PRN CIWA-Ar 8-15 Lorazepam 4 mg 06/03/18 14:00 06/17/18 15:59 Ativan IV 4 mg Q1H PRN Administration CIWA-Ar 16-25 Lorazepam 4 mg 06/03/18 14:00 Ativan IV Q15MIN PRN CIWA-Ar >25 Melatonin 5 mg 06/07/18 19:41 06/10/18 23:30 Melatonin PO 5 mg QHS PRN Administration Sleep Metoprolol Tartrate 50 mg 06/11/18 10:00 06/20/18 09:07 Lopressor PO Not Given BID [facility] Mirtazapine 15 mg 06/10/18 22:00 06/19/18 23:21 Remeron PO Not Given QHS [facility] Morphine Sulfate 2 mg 06/19/18 13:47 06/20/18 07:25 Morphine IV 2 mg Q3H PRN Administration Pain, Moderate (4-6) Multivitamins 5 ml 06/04/18 10:00 06/20/18 09:06 Centrum Liq PO Not Given QDAY [facility] Ondansetron HCl 4 mg 06/03/18 00:05 Zofran IV Q8H PRN Nausea And Vomiting Pantoprazole Sodium 40 mg 06/06/18 10:00 06/20/18 09:07 Protonix PO Not Given DAILY CINDA Sodium Chloride 10 ml 06/03/18 10:00 06/20/18 09:08 Sodium Chloride Flush Syringe 10 Ml IV Not Given BID CINDA Sodium Chloride 10 ml 06/03/18 00:05 Sodium Chloride Flush Syringe 10 Ml IV PRN PRN LINE FLUSH Tamsulosin HCl 0.4 mg 06/03/18 12:00 06/20/18 09:06 Flomax PO Not Given QDAY [facility] Thiamine HCl 100 mg 06/04/18 10:00 06/20/18 09:08 Vitamin B-1 PO Not Given QDAY [facility]INDA
[2018-06-20] MEDS: HALDOL IM PRN (09:27)
--- NOTE | 2018-06-20 09:45 | Progress Note ---
Assessment and Plan Assessment and plan: 72-year-old man with history of alcoholism and likely dementia which has not been diagnosed with suspected by family. The patient's and he was dependent on her past the week 2 weeks prior. He was home by himself, is apparently drinking heavily not eating and not. He had been confused per his son and neighbors. His son and asked him to go to the ER , then he called the EMS. The patient was found to have a very low sodium, agitated and confused. CT head no acute findings Chest x-ray no acute findings -The patient is on [facility] protocol for alcohol withdrawal. He is now out of the window for alcohol withdrawal -He was counseled on tobacco cessation, time spent greater than 10 minutes -The patient was initially very hyponatremic when he came to the hospital, he r eceived saline IV, salt tabs and his potassium was replaced. -The patient developed urinary retention, therefore Barahona catheter placed -He received a course of steroids and nebulizers for COPD exacerbation, now improved. -he had very poor by mouth intake, he was only taking sips of drinks some barely consuming any food. He received dietitian consult, SS consult revealed severe dysphagia, now NPO pending PEG tube -The patient has waxing and waning mental status, due to dementia -echo shows preserved ef, went into RVR then put on rate control meds, cardiology consult appreciated, chads-vasc score is 1, will be on aspirin for cva ppx, case dw lean sensei -cont abx for UTI- e fecalis, for total 5 days ending 06-20-18 -Patient now developed some hypernatremia from free water deficit, continue D5 water, plan for PEG tube, son has given consent, planned for Saturday -gave IV metoprolol, placed NGT to cont meds, received ativan per [facility] protocol then became hypotensive, IVF and pressors, transfer to [facility] -il to SNF with hospice when improved Diagnoses Afib with RVR, PAF hypotension, likely 2/2 ativan administration hypercoaguable state Alcohol dependence and withdrawal Acute metabolic encephalopathy Severe hyponatremia, now resolved mild hypernatremia- d5w drip Hypercholesteremia Beer potomania severe malnutrition COPD exacerbation Tobacco abuse, current every day smoker Acute hypoxic respiratory failure Dementia severe malnutrition Sepsis UTI -Urinary retention/obstructive uropathy - CCT 33 minutes History Interval history: Patient has been confused, he was extremely agitated, shaking his extremities -he was tachycardic and yelling EKG shows Afib with RVR Review of systems Constitutional: No fevers, no malaise, no joint pains CVS: No chest pain, no orthopnea, no dyspnea on exertion, no pedal edema GI: No abdominal pain, no diarrhea, no vomiting, no constipation has not been eating Respiratory: no sob or cough Hospitalist Physical - Physical exam Narrative exam: General.: , nontoxic HEENT: Moist mucous membranes, extraocular muscles intact, no lymphadenopathy Neck: supple Cardiac: S1-S2 heard Lungs: CTA Abdomen: soft , nontender, nondistended, bowel sounds positive Extremities: no edema clubbing or cyanosis Skin: no rash or lesions Neurologic: Confused, moves all extremities Psych: calm, - Constitutional Vitals: Temp Pulse Resp BP Pulse Ox 98.0 F 85 20 107/72 92 06/20/18 07:15 06/20/18 07:15 06/20/18 07:15 06/20/18 07:15 06/20/18 07:15 General appearance: Present: no acute distress Results - Labs CBC & Chem 7: 06/21/18 11:55 06/22/18 05:11 Labs: Laboratory Last Values WBC 10.6 K/mm3 (4.5-11.0) 06/19/18 09:10 RBC 3.50 M/mm3 (3.65-5.03) L 06/19/18 09:10 Hgb 11.7 gm/dl (11.8-15.2) L 06/19/18 09:10 Hct 34.4 % (35.5-45.6) L 06/19/18 09:10 MCV 98 fl (84-94) H 06/19/18 09:10 MCH 33 pg (28-32) H 06/19/18 09:10 MCHC 34 % (32-34) 06/19/18 09:10 RDW 13.6 % (13.2-15.2) 06/19/18 09:10 Plt Count 98 K/mm3 (140-440) L 06/19/18 09:10 Lymph % (Auto) 11.8 % (13.4-35.0) L 06/19/18 09:10 [place] % (Auto) 4.9 % (0.0-7.3) 06/19/18 09:10 Eos % (Auto) 0.5 % (0.0-4.3) 06/19/18 09:10 Baso % (Auto) 0.4 % (0.0-1.8) 06/19/18 09:10 Lymph # 1.3 K/mm3 (1.2-5.4) 06/19/18 09:10 [place] # 0.5 K/mm3 (0.0-0.8) 06/19/18 09:10 Eos # 0.0 K/mm3 (0.0-0.4) 06/19/18 09:10 Baso # 0.0 K/mm3 (0.0-0.1) 06/19/18 09:10 Add Manual Diff Complete 06/04/18 09:47 Total Counted 100 06/04/18 09:47 Seg Neutrophils % 82.4 % (40.0-70.0) H 06/19/18 09:10 Seg Neuts % (Manual) 92.0 % (40.0-70.0) H 06/04/18 09:47 Band Neutrophils % 0 % 06/04/18 09:47 Lymphocytes % (Manual) 5.0 % (13.4-35.0) L 06/04/18 09:47 Reactive Lymphs % (Man) 0 % 06/04/18 09:47 Monocytes % (Manual) 3.0 % (0.0-7.3) 06/04/18 09:47 Eosinophils % (Manual) 0 % (0.0-4.3) 06/04/18 09:47 Basophils % (Manual) 0 % (0.0-1.8) 06/04/18 09:47 Metamyelocytes % 0 % 06/04/18 09:47 Myelocytes % 0 % 06/04/18 09:47 Promyelocytes % 0 % 06/04/18 09:47 Blast Cells % 0 % 06/04/18 09:47 Nucleated RBC % Not Reportable 06/04/18 09:47 Seg Neutrophils # 8.8 K/mm3 (1.8-7.7) H 06/19/18 09:10 Seg Neutrophils # Man 4.9 K/mm3 (1.8-7.7) 06/04/18 09:47 Band Neutrophils # 0.0 K/mm3 06/04/18 09:47 Lymphocytes # (Manual) 0.3 K/mm3 (1.2-5.4) L 06/04/18 09:47 Abs React Lymphs (Man) 0.0 K/mm3 06/04/18 09:47 Monocytes # (Manual) 0.2 K/mm3 (0.0-0.8) 06/04/18 09:47 Eosinophils # (Manual) 0.0 K/mm3 (0.0-0.4) 06/04/18 09:47 Basophils # (Manual) 0.0 K/mm3 (0.0-0.1) 06/04/18 09:47 Metamyelocytes # 0.0 K/mm3 06/04/18 09:47 Myelocytes # 0.0 K/mm3 06/04/18 09:47 Promyelocytes # 0.0 K/mm3 06/04/18 09:47 Blast Cells # 0.0 K/mm3 06/04/18 09:47 WBC Morphology Not Reportable 06/04/18 09:47 Hypersegmented Neuts Not Reportable 06/04/18 09:47 Hyposegmented Neuts Not Reportable 06/04/18 09:47 Hypogranular Neuts Not Reportable 06/04/18 09:47 Smudge Cells Not Reportable 06/04/18 09:47 Toxic Granulation 1+ 06/04/18 09:47 Toxic Vacuolation Not Reportable 06/04/18 09:47 Dohle Bodies Not Reportable 06/04/18 09:47 Pelger-Huet Anomaly Not Reportable 06/04/18 09:47 Dashawn Rods Not Reportable 06/04/18 09:47 Platelet Estimate Consistent w auto 06/04/18 09:47 Clumped Platelets Not Reportable 06/04/18 09:47 Plt Clumps, EDTA Not Reportable 06/04/18 09:47 Large Platelets Not Reportable 06/04/18 09:47 Giant Platelets Not Reportable 06/04/18 09:47 Platelet Satelliting Not Reportable 06/04/18 09:47 Plt Morphology Comment Not Reportable 06/04/18 09:47 RBC Morphology Normal 06/04/18 09:47 Dimorphic RBCs Not Reportable 06/04/18 09:47 Polychromasia Not Reportable 06/04/18 09:47 Hypochromasia Not Reportable 06/04/18 09:47 Poikilocytosis Not Reportable 06/04/18 09:47 Anisocytosis Not Reportable 06/04/18 09:47 Microcytosis Not Reportable 06/04/18 09:47 Macrocytosis Not Reportable 06/04/18 09:47 Spherocytes Not Reportable 06/04/18 09:47 Pappenheimer Bodies Not Reportable 06/04/18 09:47 Sickle Cells Not Reportable 06/04/18 09:47 Target Cells Not Reportable 06/04/18 09:47 Tear Drop Cells Not Reportable 06/04/18 09:47 Ovalocytes Not Reportable 06/04/18 09:47 Helmet Cells Not Reportable 06/04/18 09:47 Olivier-Ladson Bodies Not Reportable 06/04/18 09:47 Solgohachia Rings Not Reportable 06/04/18 09:47 Mic Cells Not Reportable 06/04/18 09:47 Bite Cells Not Reportable 06/04/18 09:47 Crenated Cell Not Reportable 06/04/18 09:47 Elliptocytes Not Reportable 06/04/18 09:47 Acanthocytes (Spur) Not Reportable 06/04/18 09:47 Rouleaux Not Reportable 06/04/18 09:47 Hemoglobin C Crystals Not Reportable 06/04/18 09:47 Schistocytes Not Reportable 06/04/18 09:47 Malaria parasites Not Reportable 06/04/18 09:47 Rajesh Bodies Not Reportable 06/04/18 09:47 Hem Pathologist Commnt No 06/04/18 09:47 PT 16.6 Sec. (12.2-14.9) H 06/18/18 05:06 INR 1.26 (0.87-1.13) H 06/18/18 05:06 Sodium 146 mmol/L (137-145) H 06/19/18 09:10 Potassium 4.5 mmol/L (3.6-5.0) D 06/19/18 09:10 Chloride 107.3 mmol/L (98-107) H 06/19/18 09:10 Carbon Dioxide 26 mmol/L (22-30) 06/19/18 09:10 Anion Gap 17 mmol/L 06/19/18 09:10 BUN 29 mg/dL (9-20) H 06/19/18 09:10 Creatinine 0.7 mg/dL (0.8-1.5) L 06/19/18 09:10 Estimated GFR > 60 ml/min 06/19/18 09:10 BUN/Creatinine Ratio 41 % 06/19/18 09:10 Glucose 74 mg/dL (75-100) L 06/19/18 09:10 POC Glucose 70 (70-105) 06/18/18 21:43 Osmolality 312 Mosm/kg 06/18/18 11:19 Uric Acid 3.5 mg/dL (3.5-7.6) 06/18/18 11:19 Calcium 7.6 mg/dL (8.4-10.2) L 06/19/18 09:10 Phosphorus 3.90 mg/dL (2.5-4.5) 06/04/18 09:47 Magnesium 2.60 mg/dL (1.7-2.3) H 06/17/18 08:21 Total Bilirubin 1.00 mg/dL (0.1-1.2) 06/17/18 08:21 Direct Bilirubin < 0.2 mg/dL (0-0.2) 06/04/18 04:39 Indirect Bilirubin 0.2 mg/dL 06/04/18 04:39 AST 26 units/L (5-40) 06/17/18 08:21 ALT 30 units/L (7-56) 06/17/18 08:21 Alkaline Phosphatase 49 units/L (35-129) 06/17/18 08:21 Ammonia 55.0 umol/L (25-60) 06/16/18 17:33 Total Creatine Kinase 420 units/L (55-170) H 06/02/18 21:25 Troponin T < 0.010 ng/mL (0.00-0.029) 06/02/18 21:25 NT-Pro-B Natriuret Pep 379.8 pg/mL (0-900) 06/02/18 21:25 Total Protein 5.2 g/dL (6.3-8.2) L 06/17/18 08:21 Albumin 2.9 g/dL (3.9-5) L 06/17/18 08:21 Albumin/Globulin Ratio 1.3 % 06/17/18 08:21 Vitamin B12 697.5 pg/mL (211-911) 06/16/18 17:33 TSH 1.100 mlU/mL (0.270-4.200) 06/03/18 20:45 Urine Color Yellow (Yellow) 06/16/18 03:20 Urine Turbidity Cloudy (Clear) 06/16/18 03:20 Urine pH 5.0 (5.0-7.0) 06/16/18 03:20 Ur Specific [place] 1.020 (1.003-1.030) 06/16/18 03:20 Urine Protein <15 mg/dl mg/dL (Negative) 06/16/18 03:20 Urine Glucose (UA) Neg mg/dL (Negative) 06/16/18 03:20 Urine Ketones Neg mg/dL (Negative) 06/16/18 03:20 Urine Blood Sm (Negative) 06/16/18 03:20 Urine Nitrite Neg (Negative) 06/16/18 03:20 Urine Bilirubin Neg (Negative) 06/16/18 03:20 Urine Urobilinogen < 2.0 mg/dL (<2.0) 06/16/18 03:20 Ur Leukocyte Esterase Lg (Negative) 06/16/18 03:20 Urine WBC (Auto) 89.0 /HPF (0.0-6.0) H 06/16/18 03:20 Urine RBC (Auto) 10.0 /HPF (0.0-6.0) 06/16/18 03:20 U Epithel Cells (Auto) 2.0 /HPF (0-13.0) 06/16/18 03:20 Urine Bacteria (Auto) 1+ /HPF (Negative) 06/16/18 03:20 Urine Mucus Few /HPF 06/16/18 03:20 Urine Yeast (Budding) 1+ /HPF 06/16/18 03:20 Urine Osmolality 203 Mosm/kg 06/02/18 22:02 Urine Sodium 66 mmol/L 06/18/18 10:05 RPR Nonreactive (Nonreactive) 06/16/18 17:33 Active Medications - Current Medications Current Medications: Generic Name Dose Route Start Last Admin Trade Name Freq PRN Reason Stop Dose Admin Acetaminophen 650 mg 06/03/18 00:05 06/13/18 03:03 Tylenol PO 650 mg Q4H PRN Administration Pain MILD(1-3)/Fever >100.5/CHANCE Acetaminophen 650 mg 06/16/18 15:03 06/19/18 07:[address] 650 mg Q4H PRN Administration Non Cardiac Pain or Temp>100.5 Albuterol 2.5 mg 06/03/18 13:11 06/03/18 15:01 Proventil IH 2.5 mg Q4HRT PRN Administration Shortness Of Breath Albuterol/Ipratropium 1 ampul 06/05/18 20:00 06/20/18 08:38 Duoneb *Not For Prn Use* IH 1 ampul TIDRT CINDA Administration Arformoterol Tartrate 15 mcg 06/03/18 20:00 06/20/18 08:38 Brovana Nebu IH 15 mcg Q12HRT CINDA Administration Budesonide 0.5 mg 06/03/18 20:00 06/20/18 08:38 Pulmicort IH 0.5 mg Q12HRT CINDA Administration Clonidine HCl 0.1 mg 06/11/18 22:00 06/19/18 23:19 Catapres PO Not Given HS CINDA Enoxaparin Sodium 40 mg 06/03/18 10:00 06/20/18 09:07 Lovenox SUB-Q 40 mg QDAY@1000 CINDA Administration Folic Acid 1 mg 06/04/18 10:00 06/20/18 09:06 Folvite PO Not Given QDAY CINDA Haloperidol Lactate 5 mg 06/09/18 09:51 06/20/18 09:27 Haldol IM 5 mg Q6H PRN Administration Acute Psychosis Hydralazine HCl 10 mg 06/06/18 12:10 06/09/18 14:26 Apresoline IV 10 mg Q4H PRN Administration BP >160/100 Dextrose 1,000 mls @ 100 mls/hr 06/17/18 13:00 06/20/18 04:42 D5w IV 100 mls/hr DIRECT CINDA Administration Ampicillin Sodium/Sulbactam Sodium 3 gm in 100 mls @ 200 mls/hr 06/17/18 18:00 06/20/18 06:03 Unasyn/Ns 3 Gm/100 Ml IV 200 mls/hr Q6HR CINDA Administration Protocol Lorazepam 2 mg 06/03/18 14:00 Ativan PO Q1H PRN CIWA-Ar 8-15 Lorazepam 4 mg 06/03/18 14:00 06/17/18 15:59 Ativan IV 4 mg Q1H PRN Administration CIWA-Ar 16-25 Lorazepam 4 mg 06/03/18 14:00 Ativan IV Q15MIN PRN CIWA-Ar >25 Melatonin 5 mg 06/07/18 19:41 06/10/18 23:30 Melatonin PO 5 mg QHS PRN Administration Sleep Metoprolol Tartrate 50 mg 06/11/18 10:00 06/20/18 09:07 Lopressor PO Not Given BID [facility] Mirtazapine 15 mg 06/10/18 22:00 06/19/18 23:21 Remeron PO Not Given QHS [facility] Morphine Sulfate 2 mg 06/19/18 13:47 06/20/18 07:25 Morphine IV 2 mg Q3H PRN Administration Pain, Moderate (4-6) Multivitamins 5 ml 06/04/18 10:00 06/20/18 09:06 Centrum Liq PO Not Given QDAY [facility] Ondansetron HCl 4 mg 06/03/18 00:05 Zofran IV Q8H PRN Nausea And Vomiting Pantoprazole Sodium 40 mg 06/06/18 10:00 06/20/18 09:07 Protonix PO Not Given DAILY [facility] Sodium Chloride 10 ml 06/03/18 10:00 06/20/18 09:08 Sodium Chloride Flush Syringe 10 Ml IV Not Given BID CINDA Sodium Chloride 10 ml 06/03/18 00:05 Sodium Chloride Flush Syringe 10 Ml IV PRN PRN LINE FLUSH Tamsulosin HCl 0.4 mg 06/03/18 12:00 06/20/18 09:06 Flomax PO Not Given QDAY [facility] Thiamine HCl 100 mg 06/04/18 10:00 06/20/18 09:08 Vitamin B-1 PO Not Given QDAY [facility] Nutrition/Malnutrition Assess - Dietary Evaluation Nutrition/Malnutrition Findings: Nutrition Notes Start: 06/09/18 14:29 Freq: Status: Active Protocol: Document 06/17/18 11:45 TW (Rec: 06/17/18 11:56 TW [id number]) Co-Sign 06/17/18 11:45 LP Nutrition Notes Initial or Follow up Reassessment Current Diagnosis COPD,Hypertension,Heart Failure Other Pertinent Diagnosis Alcoholic Hx, AMS, UTI, Dementia, Metabolic encephalopathy Current Diet NPO Labs/Tests Reviewed Pertinent Medications Solu-Medrol Height 5 ft 10 in Weight 57.3 kg [place] Body Weight (kg) 75.45 BMI 18.1 Subjective/Other Information Per RN, pt failed swallow evaluation and RN will discuss with GI the POC and need for a PEG tube. Pt has not taken anything in by mouth today. Burn Absent Trauma Absent #1 Nutrition Diagnosis Inadequate oral intake Diagnosis Progress(for reassessment Continues documentation) Is patient on ventilator? No Is Patient Ambulatory and/or Out of Bed No REE-([place]-confined to bed) 1595.424 Kcal/Kg value to use for calculation 32 Approximate Energy Requirements Using 1834 kcal/Kg Additional Notes Protein Needs: 61-73g (1-1.2g/ kg) Fluid Needs: 1 ml/kcal Nutrition Intervention Change Diet Order: TF when medically feasible Nutrition Support: Osmolite 1.5 at 55 ml/hr Water Flush 150ml q4h. Kcal 1,980 Protein (gm) 82 Fluid (mL) 1,005 Goal #1 TF initiation Anticipated Discharge Needs: Unable to determine at this time Follow-Up By: 06/20/18 Additional Comments F/U for POC and TF initiation
[2018-06-20] MEDS ORDERED: LOPRESSOR IV STA (10:09)
[2018-06-20] MEDS: ATIVAN IV PRN (11:01)
[2018-06-20] MEDS ORDERED: CARDIZEM IV STA (11:03)
[2018-06-20] MEDS ORDERED: NACL 0.9% 500 ML 500 ML IV ONE (11:17)
[2018-06-20] MEDS ORDERED: NACL 0.9% 1000 ML 1,000 ML ONE (11:20)
[2018-06-20] MEDS ORDERED: ALBUTEIN IV NR (11:30)
[2018-06-20] MEDS ORDERED: INTROPIN DRIP 800 MG/D5W 250 ML 800 MG/250 ML BAG IV ONE (12:18)
[2018-06-20] MEDS: LOPRESSOR IV SCH (12:37)
--- NOTE | 2018-06-20 13:33 | Progress Note ---
Assessment and Plan Hypotension (possibly iatrogenic) Acute COPD exacerbation Acute Hyponatremia Acute Encephalopathy (? Wernicke's) EtOH Abuse - stat ABG +/- deploy BIPAP - has not responded to saline bolus yet - 500mls 5% Albumin bolus - begin dopamine after placing large bore peripheral (suspect quick rebound) - transfer to IMCU - continue Albuterol/Atrovent aerosol treatments q6hrs - off solumedrol - continue supplemental oxygen as necessary to keep O2 sat's > 90% - continue thiamine and folic acid - Continue Lovenox - Continue Protonix - complete AB's per ID rec's (on Unasyn) - PT/OT/increase ambulation - aspiration and falls precautions - continue other care per attending / other consultants ... re-evaluate prn The high probability of a clinically significant, sudden or life-threatening deterioration of the [cardiac, neurology, respiratory] system(s) required my full and direct attention, intervention and personal management. The aggregate critical care time was [40] minutes without overlap. Time includes spent on; [x] Data Review and interpretation [x] Patient assessment and monitoring of vital signs [x] Documentation [x] Medication orders and management Subjective Date of service: 06/20/18 Principal diagnosis: AE-COPD; Acute metabolic-toxic encephalopathy; hyponatremia Interval history: Patient is seen today for: AE-COPD; Acute metabolic-toxic encephalopathy; hyponatremia Seen and examined at bedside; 24hour events reviewed; nursing and respiratory care staff consulted; no adverse overnight events reported to me; resting in bed; lethargic and hypoventilating; received Ativan per CIWA protocol earlier; now hypotensive; afebrile; no N/V/F/C Objective Vital Signs - 12hr 06/20/18 06/20/18 06/20/18 02:58 02:59 07:15 Temperature 97.9 F 98.0 F Pulse Rate 66 85 Pulse Rate [ From Monitor] Respiratory 18 20 Rate Blood Pressure 125/62 107/72 Blood Pressure [Left] O2 Sat by Pulse 100 92 Oximetry 06/20/18 06/20/18 06/20/18 10:00 11:12 11:15 Temperature Pulse Rate 164 H 167 H 72 Pulse Rate [ 177 H From Monitor] Respiratory Rate Blood Pressure 145/120 Blood Pressure 64/39 [Left] O2 Sat by Pulse 92 Oximetry 06/20/18 06/20/18 12:37 12:39 Temperature Pulse Rate 65 64 Pulse Rate [ From Monitor] Respiratory Rate Blood Pressure 74/48 74/48 Blood Pressure [Left] O2 Sat by Pulse Oximetry Constitutional: lethargic, other (elderly and chronically ill looking CM ) Eyes: non-icteric ENT: oropharynx moist Neck: supple, no JVD, other (no thyromegaly) Effort: other (hypoventilating) Ascultation: Bilateral: diminished breath sounds, other (prolonged expiratory phase) Percussion: Bilateral: not dull Cardiovascular: regular rate and rhythm Gastrointestinal: normoactive bowel sounds, soft, non-tender, non-distended Integumentary: normal Extremities: no cyanosis, no edema, pink and warm, pulses normal Neurologic: pupils equal and round, unable to assess Psychiatric: other (delirious) CBC and BMP: 06/19/18 09:10 06/19/18 09:10 ABG, PT/INR, D-dimer: ABG POC ABG pH 7.381 (7.35-7.45) 06/20/18 11:51 POC ABG pCO2 44.7 (35-45) 06/20/18 11:51 POC ABG pO2 86 (80-105) 06/20/18 11:51 POC ABG HCO3 26.5 (22-26 mml/L) 06/20/18 11:51 POC ABG Total CO2 28 (23-27mmol/L) 06/20/18 11:51 POC ABG O2 Sat 96 06/20/18 11:51 PT/INR, D-dimer PT 16.6 Sec. (12.2-14.9) H 06/18/18 05:06 INR 1.26 (0.87-1.13) H 06/18/18 05:06 Abnormal lab findings: Abnormal Labs 06/02/18 06/02/18 06/02/18 21:25 21:25 22:03 WBC RBC Hgb Hct MCV MCH 33 H MCHC 35 H RDW 12.8 L Plt Count Lymph % (Auto) Seg Neutrophils % Seg Neuts % (Manual) 80.0 H Lymphocytes % (Manual) Seg Neutrophils # Lymphocytes # (Manual) 0.8 L PT INR Sodium 109 L* Potassium Chloride 71.3 L Carbon Dioxide BUN 6 L Creatinine 0.5 L Glucose Calcium Magnesium Ammonia Total Creatine Kinase 420 H Total Protein Albumin Urine WBC (Auto) 24.0 H 06/03/18 06/03/18 06/03/18 00:15 06:27 09:42 WBC RBC Hgb Hct MCV MCH MCHC RDW Plt Count Lymph % (Auto) Seg Neutrophils % Seg Neuts % (Manual) Lymphocytes % (Manual) Seg Neutrophils # Lymphocytes # (Manual) PT INR Sodium 113 L* 118 L* 116 L* Potassium 3.5 L 3.5 L Chloride 77.2 L 79.1 L 78.2 L Carbon Dioxide BUN 5 L 4 L 4 L Creatinine 0.4 L 0.5 L 0.4 L Glucose Calcium 8.2 L 7.9 L 8.1 L Magnesium Ammonia Total Creatine Kinase Total Protein Albumin Urine WBC (Auto) 06/03/18 06/03/18 06/03/18 14:41 14:41 20:45 WBC RBC Hgb Hct MCV MCH MCHC RDW Plt Count Lymph % (Auto) Seg Neutrophils % Seg Neuts % (Manual) Lymphocytes % (Manual) Seg Neutrophils # Lymphocytes # (Manual) PT INR Sodium 114 L* 118 L* Potassium 3.1 L Chloride 76.3 L 79.7 L Carbon Dioxide BUN 4 L 3 L Creatinine 0.5 L 0.4 L Glucose Calcium 8.1 L 8.3 L Magnesium Ammonia 23.0 L Total Creatine Kinase Total Protein Albumin Urine WBC (Auto) 06/04/18 06/04/18 06/04/18 04:39 09:47 09:47 WBC RBC Hgb Hct MCV 95 H MCH 33 H MCHC RDW 12.8 L Plt Count Lymph % (Auto) Seg Neutrophils % Seg Neuts % (Manual) 92.0 H Lymphocytes % (Manual) 5.0 L Seg Neutrophils # Lymphocytes # (Manual) 0.3 L PT INR Sodium 123 L Potassium Chloride 85.2 L Carbon Dioxide BUN 5 L Creatinine 0.5 L Glucose 129 H Calcium 8.3 L Magnesium Ammonia Total Creatine Kinase Total Protein 5.5 L Albumin 3.1 L Urine WBC (Auto) 06/05/18 06/06/18 06/07/18 04:29 05:25 07:11 WBC RBC Hgb Hct MCV MCH MCHC RDW Plt Count Lymph % (Auto) Seg Neutrophils % Seg Neuts % (Manual) Lymphocytes % (Manual) Seg Neutrophils # Lymphocytes # (Manual) PT INR Sodium 126 L 133 L D 126 L D Potassium Chloride 90.4 L 95.1 L 86.1 L Carbon Dioxide BUN 8 L Creatinine 0.5 L 0.5 L 0.5 L Glucose 170 H 123 H 129 H Calcium 8.2 L 8.1 L Magnesium Ammonia Total Creatine Kinase Total Protein Albumin Urine WBC (Auto) 06/08/18 06/09/18 06/10/18 11:03 06:13 07:14 WBC RBC Hgb Hct MCV MCH MCHC RDW Plt Count Lymph % (Auto) Seg Neutrophils % Seg Neuts % (Manual) Lymphocytes % (Manual) Seg Neutrophils # Lymphocytes # (Manual) PT INR Sodium 134 L D Potassium Chloride 92.2 L Carbon Dioxide 31 H BUN Creatinine 0.5 L 0.6 L 0.5 L Glucose 106 H 130 H 126 H Calcium Magnesium Ammonia Total Creatine Kinase Total Protein Albumin Urine WBC (Auto) 06/11/18 06/12/18 06/13/18 10:23 04:58 05:33 WBC RBC Hgb Hct MCV MCH MCHC RDW Plt Count Lymph % (Auto) Seg Neutrophils % Seg Neuts % (Manual) Lymphocytes % (Manual) Seg Neutrophils # Lymphocytes # (Manual) PT INR Sodium 136 L 134 L Potassium 3.5 L Chloride Carbon Dioxide BUN 27 H Creatinine 0.4 L 0.5 L 0.6 L Glucose 155 H 141 H 112 H Calcium 8.1 L 7.9 L 8.3 L Magnesium Ammonia Total Creatine Kinase Total Protein Albumin Urine WBC (Auto) 06/13/18 06/14/18 06/14/18 05:33 05:14 05:14 WBC 12.6 H 12.3 H RBC Hgb Hct MCV 97 H 98 H MCH 33 H MCHC RDW Plt Count 133 L Lymph % (Auto) Seg Neutrophils % Seg Neuts % (Manual) Lymphocytes % (Manual) Seg Neutrophils # Lymphocytes # (Manual) PT INR Sodium 146 H Potassium Chloride 107.2 H Carbon Dioxide BUN 31 H Creatinine 0.6 L Glucose 113 H Calcium Magnesium Ammonia Total Creatine Kinase Total Protein Albumin Urine WBC (Auto) 06/15/18 06/15/18 06/16/18 04:47 04:47 03:20 WBC 16.7 H RBC Hgb Hct MCV 97 H MCH MCHC RDW Plt Count 138 L Lymph % (Auto) Seg Neutrophils % Seg Neuts % (Manual) Lymphocytes % (Manual) Seg Neutrophils # Lymphocytes # (Manual) PT INR Sodium 146 H Potassium Chloride 109.2 H Carbon Dioxide BUN 32 H Creatinine 0.6 L Glucose 124 H Calcium 7.8 L Magnesium Ammonia Total Creatine Kinase Total Protein Albumin Urine WBC (Auto) 89.0 H 06/16/18 06/17/18 06/17/18 05:22 08:21 08:21 WBC 11.4 H RBC Hgb Hct MCV 98 H MCH 33 H MCHC RDW Plt Count 107 L Lymph % (Auto) Seg Neutrophils % Seg Neuts % (Manual) Lymphocytes % (Manual) Seg Neutrophils # Lymphocytes # (Manual) PT INR Sodium 146 H 146 H Potassium Chloride 109.0 H 109.2 H Carbon Dioxide BUN 39 H 47 H Creatinine Glucose 120 H 109 H Calcium 7.9 L 8.3 L Magnesium 2.60 H Ammonia Total Creatine Kinase Total Protein 5.2 L Albumin 2.9 L Urine WBC (Auto) 06/18/18 06/19/18 06/19/18 05:06 09:10 09:10 WBC RBC 3.50 L Hgb 11.7 L Hct 34.4 L MCV 98 H MCH 33 H MCHC RDW Plt Count 98 L Lymph % (Auto) 11.8 L Seg Neutrophils % 82.4 H Seg Neuts % (Manual) Lymphocytes % (Manual) Seg Neutrophils # 8.8 H Lymphocytes # (Manual) PT 16.6 H INR 1.26 H Sodium 146 H Potassium Chloride 107.3 H Carbon Dioxide BUN 29 H Creatinine 0.7 L Glucose 74 L Calcium 7.6 L Magnesium Ammonia Total Creatine Kinase Total Protein Albumin Urine WBC (Auto) Allied health notes reviewed: nursing
--- NOTE | 2018-06-20 14:34 | Progress Note ---
Assessment and Plan 1. Oropharyngeal dysphagia - will cancel PEG for now due to recent cardiovascular events. - give Dobhoff tube feeds - will do PEG when clinically stable. Subjective Date of service: 06/20/18 Principal diagnosis: AE-COPD; Acute metabolic-toxic encephalopathy; hyponatremia Interval history: Pt deteriorated overnight, with fever yesterday. Today, developed SVT, and then received Ativan and became lethargic and hypotensive. Currently in IMCU on Dopamine. Tries to open eyes to voice. Objective - Constitutional Vitals: Vital Signs - 12hr 06/20/18 06/20/18 06/20/18 02:58 02:59 07:15 Temperature 97.9 F 98.0 F Pulse Rate 66 85 Pulse Rate [ From Monitor] Respiratory 18 20 Rate Blood Pressure 125/62 107/72 Blood Pressure [Left] O2 Sat by Pulse 100 92 Oximetry 06/20/18 06/20/18 06/20/18 10:00 11:12 11:15 Temperature Pulse Rate 164 H 167 H 72 Pulse Rate [ 177 H From Monitor] Respiratory Rate Blood Pressure 145/120 Blood Pressure 64/39 [Left] O2 Sat by Pulse 92 Oximetry 06/20/18 06/20/18 06/20/18 12:00 12:10 12:20 Temperature Pulse Rate 68 69 68 Pulse Rate [ From Monitor] Respiratory 21 22 Rate Blood Pressure 72/42 73/43 Blood Pressure [Left] O2 Sat by Pulse 86 82 L Oximetry 06/20/18 06/20/18 06/20/18 12:30 12:37 12:39 Temperature Pulse Rate 63 65 64 Pulse Rate [ From Monitor] Respiratory 17 Rate Blood Pressure 73/43 74/48 74/48 Blood Pressure [Left] O2 Sat by Pulse 100 Oximetry 06/20/18 06/20/18 06/20/18 12:40 12:50 13:00 Temperature Pulse Rate 62 63 64 Pulse Rate [ From Monitor] Respiratory 18 16 13 Rate Blood Pressure 84/53 112/71 Blood Pressure [Left] O2 Sat by Pulse 100 100 99 Oximetry 06/20/18 06/20/18 06/20/18 13:10 13:20 13:30 Temperature Pulse Rate 63 61 63 Pulse Rate [ From Monitor] Respiratory 15 16 15 Rate Blood Pressure 112/71 124/67 122/68 Blood Pressure [Left] O2 Sat by Pulse 100 100 100 Oximetry General appearance: Present: no acute distress, cachectic, other (lethargic) - EENT Eyes: PERRL, EOM intact ENT: hearing intact - Respiratory Respiratory effort: normal Respiratory: bilateral: rales (scattered bilateral) - Cardiovascular Rhythm: regular Heart Sounds: Present: S1 & S2 - Gastrointestinal General gastrointestinal: Present: soft, non-tender - Labs CBC & Chem 7: 06/19/18 09:10 06/19/18 09:10 Medications & Allergies - Medications Allergies/Adverse Reactions: Allergies diphenhydramine HCl [From Benadryl] Allergy (Verified 09/24/14 11:56) Unknown HALLUCINATIONS Home Medications: Home Medications Medication Instructions Recorded Confirmed Last Taken Type RX: Albuterol *Only Ed* 2.5 mg IH Q4HRT PRN #1 nebu 10/03/14 06/03/18 Unknown Rx [Proventil 0.5% NEBS] RX: Folic Acid [Folvite] 1 mg PO QDAY #30 tablet 10/03/14 06/03/18 Unknown Rx RX: Furosemide [Lasix TAB] 20 mg PO QDAY #30 tablet 10/03/14 06/03/18 Unknown Rx RX: Metoprolol [Lopressor TAB] 12.5 mg PO BID #60 tablet 10/03/14 06/03/18 Unknown Rx RX: Multivitamins Liq [Multiple 5 ml PO QDAY 30 Days oral.liqd 10/03/14 06/03/18 Unknown Rx Vitamin Liq (Theragran)] RX: Thiamine [Vitamin B-1] 100 mg PO QDAY #30 tablet 10/03/14 06/03/18 Unknown Rx Active Medications: Generic Name Dose Route Start Last Admin Trade Name Freq PRN Reason Stop Dose Admin Acetaminophen 650 mg 06/03/18 00:05 06/13/18 03:03 Tylenol PO 650 mg Q4H PRN Administration Pain MILD(1-3)/Fever >100.5/CHANCE Acetaminophen 650 mg 06/16/18 15:03 06/19/18 07:46 Tylenol OK 650 mg Q4H PRN Administration Non Cardiac Pain or Temp>100.5 Albuterol 2.5 mg 06/03/18 13:11 06/03/18 15:01 Proventil IH 2.5 mg Q4HRT PRN Administration Shortness Of Breath Albuterol/Ipratropium 1 ampul 06/05/18 20:00 06/20/18 13:28 Duoneb *Not For Prn Use* IH 1 ampul TIDRT CINDA Administration Arformoterol Tartrate 15 mcg 06/03/18 20:00 06/20/18 08:38 Brovana Nebu IH 15 mcg Q12HRT CINDA Administration Budesonide 0.5 mg 06/03/18 20:00 06/20/18 08:38 Pulmicort IH 0.5 mg Q12HRT CINDA Administration Clonidine HCl 0.1 mg 06/11/18 22:00 06/19/18 23:19 Catapres PO Not Given HS CINDA Enoxaparin Sodium 40 mg 06/03/18 10:00 06/20/18 09:07 Lovenox SUB-Q 40 mg QDAY@1000 CINDA Administration Folic Acid 1 mg 06/04/18 10:00 06/20/18 09:06 Folvite PO Not Given QDAY CINDA Haloperidol Lactate 5 mg 06/09/18 09:51 06/20/18 09:27 Haldol IM 5 mg Q6H PRN Administration Acute Psychosis Hydralazine HCl 10 mg 06/06/18 12:10 06/09/18 14:26 Apresoline IV 10 mg Q4H PRN Administration BP >160/100 Dextrose 1,000 mls @ 100 mls/hr 06/17/18 13:00 06/20/18 04:42 D5w IV 100 mls/hr DIRECT CINDA Administration Ampicillin Sodium/Sulbactam Sodium 3 gm in 100 mls @ 200 mls/hr 06/17/18 18:00 06/20/18 06:03 Unasyn/Ns 3 Gm/100 Ml IV 200 mls/hr Q6HR CINDA Administration Protocol Dopamine HCl/Dextrose 800 mg in 250 mls @ 5.334 mls/hr 06/20/18 12:18 13:35 Intropin Drip 800 Mg/D5w 250 Ml IV 06/22/18 11:10 3 mcg/kg/min TITR ONE 3.201 mls/hr Titration Protocol 5 MCG/KG/MIN Cefazolin Sodium 2 gm in 20 mls @ 80 mls/hr 06/20/18 15:00 Ancef/Sterile Water 2 Gm/20 Ml IV 06/20/18 23:59 PREOP NR Protocol Lorazepam 2 mg 06/03/18 14:00 Ativan PO Q1H PRN CIWA-Ar 8-15 Lorazepam 4 mg 06/03/18 14:00 06/20/18 11:01 Ativan IV 4 mg Q1H PRN Administration CIWA-Ar 16-25 Lorazepam 4 mg 06/03/18 14:00 Ativan IV Q15MIN PRN CIWA-Ar >25 Melatonin 5 mg 06/07/18 19:41 06/10/18 23:30 Melatonin PO 5 mg QHS PRN Administration Sleep Metoprolol Tartrate 50 mg 06/11/18 10:00 06/20/18 09:07 Lopressor PO Not Given BID CINDA Metoprolol Tartrate 5 mg 06/20/18 12:00 06/20/18 12:37 Lopressor IV 5 mg Q6HR CINDA Administration Mirtazapine 15 mg 06/10/18 22:00 06/19/18 23:21 Remeron PO Not Given QHS [facility] Morphine Sulfate 2 mg 06/19/18 13:47 06/20/18 07:25 Morphine IV 2 mg Q3H PRN Administration Pain, Moderate (4-6) Multivitamins 5 ml 06/04/18 10:00 06/20/18 09:06 Centrum Liq PO Not Given QDAY [facility] Ondansetron HCl 4 mg 06/03/18 00:05 Zofran IV Q8H PRN Nausea And Vomiting Pantoprazole Sodium 40 mg 06/06/18 10:00 06/20/18 09:07 Protonix PO Not Given DAILY [facility] Sodium Chloride 10 ml 06/03/18 10:00 06/20/18 09:08 Sodium Chloride Flush Syringe 10 Ml IV Not Given BID [facility] Sodium Chloride 10 ml 06/03/18 00:05 Sodium Chloride Flush Syringe 10 Ml IV PRN PRN LINE FLUSH Tamsulosin HCl 0.4 mg 06/03/18 12:00 06/20/18 09:06 Flomax PO Not Given QDAY [facility] Thiamine HCl 100 mg 06/04/18 10:00 06/20/18 09:08 Vitamin B-1 PO Not Given QDAY [facility]
[2018-06-20] MEDS ORDERED: PANCREAZE DR 10,500 UNIT FEEDTUBE PRN (14:55)
[2018-06-20] MEDS ORDERED: SODIUM BICARBONATE FEEDTUBE PRN (14:55)
[2018-06-20] MEDS ORDERED: SIMPLE SYRUP FEEDTUBE PRN ×2 (14:55)
[2018-06-20] MEDS ORDERED: MAXIPIME/NS 2 GM/100 ML 2 GM/100 ML BAG IV SCH (15:00)
[2018-06-20] MEDS ORDERED: ANCEF/STERILE WATER 2 GM/20 ML 2 GM/20 ML SYRINGE IV NR (15:00)
--- NOTE | 2018-06-20 15:38 | Progress Note ---
Assessment and Plan Assessment and plan: 72-year-old man with history of alcoholism and likely dementia which has not been diagnosed with suspected by family. The patient's and he was dependent on her past the week 2 weeks prior. He was home by himself, is apparently drinking heavily not eating and not. He had been confused per his son and neighbors. His son and asked him to go to the ER , then he called the EMS. The patient was found to have a very low sodium, agitated and confused. CT head no acute findings Chest x-ray no acute findings -The patient is on [facility] protocol for alcohol withdrawal. He is now out of the window for alcohol withdrawal -He was counseled on tobacco cessation, time spent greater than 10 minutes -The patient was initially very hyponatremic when he came to the hospital, he r eceived saline IV, salt tabs and his potassium was replaced. -The patient developed urinary retention, therefore [place] catheter placed -He received a course of steroids and nebulizers for COPD exacerbation, now improved. -he had very poor by mouth intake, he was only taking sips of drinks some barely consuming any food. 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 06/21; improving, weaning off pressors -dc to SNF with hospice when improved Diagnoses Afib with RVR, PAF hypotension, likely 2/2 ativan administration hypercoaguable state Alcohol dependence and withdrawal Acute metabolic encephalopathy Severe hyponatremia, now resolved mild hypernatremia- d5w drip Hypercholesteremia Beer potomania severe malnutrition COPD exacerbation Tobacco abuse, current every day smoker Acute hypoxic respiratory failure Dementia severe malnutrition Sepsis UTI -Urinary retention/obstructive uropathy - CCT 33 minutes History Interval history: Patient has been less agitated and confused today has been on dopamine and getting tube feeds and IVF Review of systems Constitutional: No fevers, no malaise, no joint pains CVS: No chest pain, no orthopnea, no dyspnea on exertion, no pedal edema GI: No abdominal pain, no diarrhea, no vomiting, no constipation has not been eating Respiratory: no sob or cough Hospitalist Physical - Physical exam Narrative exam: General.: , nontoxic HEENT: Moist mucous membranes, extraocular muscles intact, no lymphadenopathy Neck: supple Cardiac: S1-S2 heard Lungs: CTA Abdomen: soft , nontender, nondistended, bowel sounds positive Extremities: no edema clubbing or cyanosis Skin: no rash or lesions Neurologic: Confused, moves all extremities Psych: calm, - Constitutional Vitals: Temp Pulse Resp BP Pulse Ox 98.0 F 63 15 122/68 100 06/20/18 07:15 06/20/18 13:30 06/20/18 13:30 06/20/18 13:30 06/20/18 13:30 General appearance: Present: no acute distress, cachectic, other (lethargic) Results - Labs CBC & Chem 7: 06/21/18 11:55 06/22/18 05:11 Labs: Laboratory Last Values WBC 10.6 K/mm3 (4.5-11.0) 06/19/18 09:10 RBC 3.50 M/mm3 (3.65-5.03) L 06/19/18 09:10 Hgb 11.7 gm/dl (11.8-15.2) L 06/19/18 09:10 Hct 34.4 % (35.5-45.6) L 06/19/18 09:10 MCV 98 fl (84-94) H 06/19/18 09:10 MCH 33 pg (28-32) H 06/19/18 09:10 MCHC 34 % (32-34) 06/19/18 09:10 RDW 13.6 % (13.2-15.2) 06/19/18 09:10 Plt Count 98 K/mm3 (140-440) L 06/19/18 09:10 Lymph % (Auto) 11.8 % (13.4-35.0) L 06/19/18 09:10 [place] % (Auto) 4.9 % (0.0-7.3) 06/19/18 09:10 Eos % (Auto) 0.5 % (0.0-4.3) 06/19/18 09:10 Baso % (Auto) 0.4 % (0.0-1.8) 06/19/18 09:10 Lymph # 1.3 K/mm3 (1.2-5.4) 06/19/18 09:10 [place] # 0.5 K/mm3 (0.0-0.8) 06/19/18 09:10 Eos # 0.0 K/mm3 (0.0-0.4) 06/19/18 09:10 Baso # 0.0 K/mm3 (0.0-0.1) 06/19/18 09:10 Add Manual Diff Complete 06/04/18 09:47 Total Counted 100 06/04/18 09:47 Seg Neutrophils % 82.4 % (40.0-70.0) H 06/19/18 09:10 Seg Neuts % (Manual) 92.0 % (40.0-70.0) H 06/04/18 09:47 Band Neutrophils % 0 % 06/04/18 09:47 Lymphocytes % (Manual) 5.0 % (13.4-35.0) L 06/04/18 09:47 Reactive Lymphs % (Man) 0 % 06/04/18 09:47 Monocytes % (Manual) 3.0 % (0.0-7.3) 06/04/18 09:47 Eosinophils % (Manual) 0 % (0.0-4.3) 06/04/18 09:47 Basophils % (Manual) 0 % (0.0-1.8) 06/04/18 09:47 Metamyelocytes % 0 % 06/04/18 09:47 Myelocytes % 0 % 06/04/18 09:47 Promyelocytes % 0 % 06/04/18 09:47 Blast Cells % 0 % 06/04/18 09:47 Nucleated RBC % Not Reportable 06/04/18 09:47 Seg Neutrophils # 8.8 K/mm3 (1.8-7.7) H 06/19/18 09:10 Seg Neutrophils # Man 4.9 K/mm3 (1.8-7.7) 06/04/18 09:47 Band Neutrophils # 0.0 K/mm3 06/04/18 09:47 Lymphocytes # (Manual) 0.3 K/mm3 (1.2-5.4) L 06/04/18 09:47 Abs React Lymphs (Man) 0.0 K/mm3 06/04/18 09:47 Monocytes # (Manual) 0.2 K/mm3 (0.0-0.8) 06/04/18 09:47 Eosinophils # (Manual) 0.0 K/mm3 (0.0-0.4) 06/04/18 09:47 Basophils # (Manual) 0.0 K/mm3 (0.0-0.1) 06/04/18 09:47 Metamyelocytes # 0.0 K/mm3 06/04/18 09:47 Myelocytes # 0.0 K/mm3 06/04/18 09:47 Promyelocytes # 0.0 K/mm3 06/04/18 09:47 Blast Cells # 0.0 K/mm3 06/04/18 09:47 WBC Morphology Not Reportable 06/04/18 09:47 Hypersegmented Neuts Not Reportable 06/04/18 09:47 Hyposegmented Neuts Not Reportable 06/04/18 09:47 Hypogranular Neuts Not Reportable 06/04/18 09:47 Smudge Cells Not Reportable 06/04/18 09:47 Toxic Granulation 1+ 06/04/18 09:47 Toxic Vacuolation Not Reportable 06/04/18 09:47 Dohle Bodies Not Reportable 06/04/18 09:47 Pelger-Huet Anomaly Not Reportable 06/04/18 09:47 Dashawn Rods Not Reportable 06/04/18 09:47 Platelet Estimate Consistent w auto 06/04/18 09:47 Clumped Platelets Not Reportable 06/04/18 09:47 Plt Clumps, EDTA Not Reportable 06/04/18 09:47 Large Platelets Not Reportable 06/04/18 09:47 Giant Platelets Not Reportable 06/04/18 09:47 Platelet Satelliting Not Reportable 06/04/18 09:47 Plt Morphology Comment Not Reportable 06/04/18 09:47 RBC Morphology Normal 06/04/18 09:47 Dimorphic RBCs Not Reportable 06/04/18 09:47 Polychromasia Not Reportable 06/04/18 09:47 Hypochromasia Not Reportable 06/04/18 09:47 Poikilocytosis Not Reportable 06/04/18 09:47 Anisocytosis Not Reportable 06/04/18 09:47 Microcytosis Not Reportable 06/04/18 09:47 Macrocytosis Not Reportable 06/04/18 09:47 Spherocytes Not Reportable 06/04/18 09:47 Pappenheimer Bodies Not Reportable 06/04/18 09:47 Sickle Cells Not Reportable 06/04/18 09:47 Target Cells Not Reportable 06/04/18 09:47 Tear Drop Cells Not Reportable 06/04/18 09:47 Ovalocytes Not Reportable 06/04/18 09:47 Helmet Cells Not Reportable 06/04/18 09:47 Olivier-[place] Bodies Not Reportable 06/04/18 09:47 [place] Rings Not Reportable 06/04/18 09:47 Mic Cells Not Reportable 06/04/18 09:47 Bite Cells Not Reportable 06/04/18 09:47 Crenated Cell Not Reportable 06/04/18 09:47 Elliptocytes Not Reportable 06/04/18 09:47 Acanthocytes (Spur) Not Reportable 06/04/18 09:47 Rouleaux Not Reportable 06/04/18 09:47 Hemoglobin C Crystals Not Reportable 06/04/18 09:47 Schistocytes Not Reportable 06/04/18 09:47 Malaria parasites Not Reportable 06/04/18 09:47 Rajesh Bodies Not Reportable 06/04/18 09:47 Hem Pathologist Commnt No 06/04/18 09:47 PT 16.6 Sec. (12.2-14.9) H 06/18/18 05:06 INR 1.26 (0.87-1.13) H 06/18/18 05:06 POC ABG pH 7.381 (7.35-7.45) 06/20/18 11:51 POC ABG pCO2 44.7 (35-45) 06/20/18 11:51 POC ABG pO2 86 (80-105) 06/20/18 11:51 POC ABG HCO3 26.5 (22-26 mml/L) 06/20/18 11:51 POC ABG Total CO2 28 (23-27mmol/L) 06/20/18 11:51 POC ABG O2 Sat 96 06/20/18 11:51 POC ABG Base Excess 1 ((-2) - (+3)mmol/L) 06/20/18 11:51 FiO2 3 % 06/20/18 11:51 Sodium 146 mmol/L (137-145) H 06/19/18 09:10 Potassium 4.5 mmol/L (3.6-5.0) D 06/19/18 09:10 Chloride 107.3 mmol/L (98-107) H 06/19/18 09:10 Carbon Dioxide 26 mmol/L (22-30) 06/19/18 09:10 Anion Gap 17 mmol/L 06/19/18 09:10 BUN 29 mg/dL (9-20) H 06/19/18 09:10 Creatinine 0.7 mg/dL (0.8-1.5) L 06/19/18 09:10 Estimated GFR > 60 ml/min 06/19/18 09:10 BUN/Creatinine Ratio 41 % 06/19/18 09:10 Glucose 74 mg/dL (75-100) L 06/19/18 09:10 POC Glucose 70 (70-105) 06/18/18 21:43 Osmolality 312 Mosm/kg 06/18/18 11:19 Uric Acid 3.5 mg/dL (3.5-7.6) 06/18/18 11:19 Calcium 7.6 mg/dL (8.4-10.2) L 06/19/18 09:10 Phosphorus 3.90 mg/dL (2.5-4.5) 06/04/18 09:47 Magnesium 2.60 mg/dL (1.7-2.3) H 06/17/18 08:21 Total Bilirubin 1.00 mg/dL (0.1-1.2) 06/17/18 08:21 Direct Bilirubin < 0.2 mg/dL (0-0.2) 06/04/18 04:39 Indirect Bilirubin 0.2 mg/dL 06/04/18 04:39 AST 26 units/L (5-40) 06/17/18 08:21 ALT 30 units/L (7-56) 06/17/18 08:21 Alkaline Phosphatase 49 units/L (35-129) 06/17/18 08:21 Ammonia 55.0 umol/L (25-60) 06/16/18 17:33 Total Creatine Kinase 420 units/L (55-170) H 06/02/18 21:25 Troponin T < 0.010 ng/mL (0.00-0.029) 06/02/18 21:25 NT-Pro-B Natriuret Pep 379.8 pg/mL (0-900) 06/02/18 21:25 Total Protein 5.2 g/dL (6.3-8.2) L 06/17/18 08:21 Albumin 2.9 g/dL (3.9-5) L 06/17/18 08:21 Albumin/Globulin Ratio 1.3 % 06/17/18 08:21 Vitamin B12 697.5 pg/mL (211-911) 06/16/18 17:33 TSH 1.100 mlU/mL (0.270-4.200) 06/03/18 20:45 Urine Color Yellow (Yellow) 06/16/18 03:20 Urine Turbidity Cloudy (Clear) 06/16/18 03:20 Urine pH 5.0 (5.0-7.0) 06/16/18 03:20 Ur Specific [place] 1.020 (1.003-1.030) 06/16/18 03:20 Urine Protein <15 mg/dl mg/dL (Negative) 06/16/18 03:20 Urine Glucose (UA) Neg mg/dL (Negative) 06/16/18 03:20 Urine Ketones Neg mg/dL (Negative) 06/16/18 03:20 Urine Blood Sm (Negative) 06/16/18 03:20 Urine Nitrite Neg (Negative) 06/16/18 03:20 Urine Bilirubin Neg (Negative) 06/16/18 03:20 Urine Urobilinogen < 2.0 mg/dL (<2.0) 06/16/18 03:20 Ur Leukocyte Esterase Lg (Negative) 06/16/18 03:20 Urine WBC (Auto) 89.0 /HPF (0.0-6.0) H 06/16/18 03:20 Urine RBC (Auto) 10.0 /HPF (0.0-6.0) 06/16/18 03:20 U Epithel Cells (Auto) 2.0 /HPF (0-13.0) 06/16/18 03:20 Urine Bacteria (Auto) 1+ /HPF (Negative) 06/16/18 03:20 Urine Mucus Few /HPF 06/16/18 03:20 Urine Yeast (Budding) 1+ /HPF 06/16/18 03:20 Urine Osmolality 203 Mosm/kg 06/02/18 22:02 Urine Sodium 66 mmol/L 06/18/18 10:05 RPR Nonreactive (Nonreactive) 06/16/18 17:33 Active Medications - Current Medications Current Medications: Generic Name Dose Route Start Last Admin Trade Name Freq PRN Reason Stop Dose Admin Acetaminophen 650 mg 06/03/18 00:05 06/13/18 03:03 Tylenol PO 650 mg Q4H PRN Administration Pain MILD(1-3)/Fever >100.5/CHANCE Acetaminophen 650 mg 06/16/18 15:03 06/19/18 07:46 Tylenol [place] 650 mg Q4H PRN Administration Non Cardiac Pain or Temp>100.5 Albuterol 2.5 mg 06/03/18 13:11 06/03/18 15:01 Proventil IH 2.5 mg Q4HRT PRN Administration Shortness Of Breath Albuterol/Ipratropium 1 ampul 06/05/18 20:00 06/20/18 13:28 Duoneb *Not For Prn Use* IH 1 ampul TIDRT CINDA Administration Lipase/Protease/Amylase 1 each 06/20/18 14:55 Pancreradha Salomon 10,500 Unit FEEDTUBE PRN PRN For Clogged Feeding Tube Arformoterol Tartrate 15 mcg 06/03/18 20:00 06/20/18 08:38 Brovana Nebu IH 15 mcg Q12HRT CINDA Administration Budesonide 0.5 mg 06/03/18 20:00 06/20/18 08:38 Pulmicort IH 0.5 mg Q12HRT CINDA Administration Clonidine HCl 0.1 mg 06/11/18 22:00 06/19/18 23:19 Catapres PO Not Given HS CINDA Enoxaparin Sodium 40 mg 06/03/18 10:00 06/20/18 09:07 Lovenox SUB-Q 40 mg QDAY@1000 CINDA Administration Folic Acid 1 mg 06/04/18 10:00 06/20/18 09:06 Folvite PO Not Given QDAY CINDA Haloperidol Lactate 5 mg 06/09/18 09:51 06/20/18 09:27 Haldol IM 5 mg Q6H PRN Administration Acute Psychosis Hydralazine HCl 10 mg 06/06/18 12:10 06/09/18 14:26 Apresoline IV 10 mg Q4H PRN Administration BP >160/100 Dextrose 1,000 mls @ 100 mls/hr 06/17/18 13:00 06/20/18 04:42 D5w IV 100 mls/hr DIRECT CINDA Administration Dopamine HCl/Dextrose 800 mg in 250 mls @ 5.334 mls/hr 06/20/18 12:18 06/20/18 13:35 Intropin Drip 800 Mg/D5w 250 Ml IV 06/22/18 11:10 3 mcg/kg/min TITR ONE 3.201 mls/hr Titration Protocol 5 MCG/KG/MIN Cefazolin Sodium 2 gm in 20 mls @ 80 mls/hr 06/20/18 15:00 Ancef/Sterile Water 2 Gm/20 Ml IV 06/20/18 23:59 PREOP NR Protocol Vancomycin HCl 1,000 mg/ 100 mls @ 66.667 mls/hr 06/20/18 15:00 Sodium Chloride IV Q12H CINDA Protocol Cefepime HCl 2 gm in 100 mls @ 200 mls/hr 06/20/18 15:00 Maxipime/Ns 2 Gm/100 Ml IV Q12HR CINDA Protocol Lorazepam 2 mg 06/03/18 14:00 Ativan PO Q1H PRN CIWA-Ar 8-15 Lorazepam 4 mg 06/03/18 14:00 06/20/18 11:01 Ativan IV 4 mg Q1H PRN Administration CIWA-Ar 16-25 Lorazepam 4 mg 06/03/18 14:00 Ativan IV Q15MIN PRN CIWA-Ar >25 Melatonin 5 mg 06/07/18 19:41 06/10/18 23:30 Melatonin PO 5 mg QHS PRN Administration Sleep Metoprolol Tartrate 50 mg 06/11/18 10:00 06/20/18 09:07 Lopressor PO Not Given BID [facility] Metoprolol Tartrate 5 mg 06/20/18 12:00 06/20/18 12:37 Lopressor IV 5 mg Q6HR CINDA Administration Mirtazapine 15 mg 06/10/18 22:00 06/19/18 23:21 Remeron PO Not Given QHS [facility] Morphine Sulfate 2 mg 06/19/18 13:47 06/20/18 07:25 Morphine IV 2 mg Q3H PRN Administration Pain, Moderate (4-6) Multivitamins 5 ml 06/04/18 10:00 06/20/18 09:06 Centrum Liq PO Not Given QDAY [facility] Ondansetron HCl 4 mg 06/03/18 00:05 Zofran IV Q8H PRN Nausea And Vomiting Pantoprazole Sodium 40 mg 06/06/18 10:00 06/20/18 09:07 Protonix PO Not Given DAILY [facility] Simple Syrup 15 ml 06/20/18 14:55 Simple Syrup FEEDTUBE PRN PRN Hypoglycemia Simple Syrup 30 ml 06/20/18 14:55 Simple Syrup FEEDTUBE PRN PRN Hypoglycemia Sodium Bicarbonate 325 mg 06/20/18 14:55 Sodium Bicarbonate FEEDTUBE PRN PRN For Clogged Feeding Tube Sodium Chloride 10 ml 06/03/18 10:00 06/20/18 09:08 Sodium Chloride Flush Syringe 10 Ml IV Not Given BID [facility] Sodium Chloride 10 ml 06/03/18 00:05 Sodium Chloride Flush Syringe 10 Ml IV PRN PRN LINE FLUSH Tamsulosin HCl 0.4 mg 06/03/18 12:00 06/20/18 09:06 Flomax PO Not Given QDAY [facility] Thiamine HCl 100 mg 06/04/18 10:00 06/20/18 09:08 Vitamin B-1 PO Not Given QDAY [facility] Nutrition/Malnutrition Assess - Dietary Evaluation Nutrition/Malnutrition Findings: Nutrition Notes Start: 06/09/18 14:29 Freq: Status: Active Protocol: Document 06/20/18 13:44 RM (Rec: 06/20/18 13:53 RM [id number]) Nutrition Notes Initial or Follow up Reassessment Current Diagnosis COPD,Hypertension,Heart Failure Other Pertinent Diagnosis Alcoholic Hx, AMS, UTI, Dementia, Metabolic encephalopathy Current Diet NPO Labs/Tests Reviewed Pertinent Medications Reviewed Height 5 ft 10 in Weight 56.9 kg [place] Body Weight (kg) 75.45 BMI 18.0 Subjective/Other Information Consulted for TF recommendation. PEG placement scheduled for today per progress note 06/20/18 . Code met called and pt transferred to [facility]. PEG placement cancelled and dobhoff planned to be placed. Burn Absent Trauma Absent #1 Nutrition Diagnosis Inadequate oral intake Diagnosis Progress(for reassessment Continues documentation) Is patient on ventilator? No Is Patient Ambulatory and/or Out of Bed No REE-([facility]-confined to bed) 1590.624 Kcal/Kg value to use for calculation 32 Approximate Energy Requirements Using 1821 kcal/Kg Calculation Used for Recommendations Kcal/kg Additional Notes Protein Needs: 61-73g (1-1.2g/ kg) Fluid Needs: 1 ml/kcal Nutrition Intervention Change Diet Order: TF consult Nutrition Support: Osmolite 1.5 at 55 ml/hr Water Flush 150ml q4h. Kcal 1,980 Protein (gm) 82 Fluid (mL) 1,005 Goal #1 TF consult Anticipated Discharge Needs: Unable to determine at this time Follow-Up By: 06/23/18 Additional Comments Follow for TF consult
[2018-06-20] MEDS ORDERED: .VANCOMYCIN VIAL 1,000 MG in NACL 0.9% 100 ML IV ONE (18:00)
[2018-06-20] MEDS ORDERED: VANCOMYCIN/NS 1 GM/250 ML 1 GM/250 ML BAG IV ONE (18:00)
--- NOTE | 2018-06-20 21:44 | XRay Report ---
PROCEDURE: XR ABDOMEN 1V AP TECHNIQUE: Single AP view of the upper abdomen for Dobbhoff placement HISTORY: For dobhoff placement confirmation COMPARISONS: FINDINGS: Dobbhoff tube identified extending below the diaphragm distal end overlying the body the stomach. Vis ualized bowel gas pattern is unremarkable. IMPRESSION: Dobbhoff with tip at the body the stomach. This document is electronically signed by Thiago Naidu MD., Jun 20 2018 09:42:32 PM ET
[2018-06-20] MEDS: MAXIPIME/NS 2 GM/100 ML 2 GM/100 ML BAG IV SCH (21:57)
[2018-06-20] MEDS: CATAPRES PO SCH (22:01)
[2018-06-20] MEDS: REMERON PO SCH (22:27)
[2018-06-20] MEDS: TYLENOL PO PRN (22:27)
[2018-06-21] MEDS: TYLENOL PO PRN ×2 (03:23→19:56)
[2018-06-21] MEDS: D5W 1,000 ML IV SCH (05:18)
[2018-06-21] MEDS: LOPRESSOR IV SCH (05:22)
--- NOTE | 2018-06-21 07:10 | Progress Note ---
Assessment and Plan Acute COPD exacerbation -Hypernatremia -Acute Encephalopathy( metabolic, toxic) -EtOH Abuse/Alcohol dependence and withdrawal -Acute hypoxic respiratory failure with COPD exacerbation -Tobacco use disorder -Moderate malnutrition, poa -Pyrexia 06/12/18: - Bronchodilators - Steroid taper - Supplemental oxygen to keep O2 sats 88-90% - Continue Lovenox, while monitoring platelets - Continue Protonix - Completed antibiotics for AE-COPD - free water and hypotonic solutions for hypernatremia -Aspiration precautions -Nutrition consult -ABG and CXR prn -PT/OT/Mobility as tolerated - continue CIWA protocol -Maintenance of sleep-wake cycle to decrease delirium -Scanlon culture and get CXR is any further fevers Goals of care to be re-addressed with family Continue to monitor closely, he is at risk for acute hemodynamic and metabolic decompensation Subjective Date of service: 06/21/18 Principal diagnosis: AE-COPD; Acute metabolic-toxic encephalopathy; hyponatremia Interval history: Patient is seen today for: AE-COPD, acute metabolic-toxic encephalopathy, hyponatremia Seen and examined at bedside; 24hour events reviewed; nursing and respiratory care staff consulted; no adverse overnight events reported to me; Remains confused, tremulous in restraints. No fevers no chills, no nausea or vomiting. Very agitated, diaphoretic. Just received morphine for pain. He grunts "no" when asked if he has any pain. Stat blood glucose at the bedside is 114 Continues to require supplemental oxygen therapy, remains tremulous Objective Vital Signs - 12hr 06/20/18 06/20/18 06/20/18 19:10 19:20 19:30 Temperature Pulse Rate 61 63 55 L Pulse Rate [ From Monitor] Pulse Rate [ Throughout] Respiratory 14 17 14 Rate Respiratory Rate [ Throughout] Blood Pressure 94/49 89/49 96/51 O2 Sat by Pulse 100 97 100 Oximetry 06/20/18 06/20/18 06/20/18 19:40 19:50 20:00 Temperature Pulse Rate 54 L 52 L 60 Pulse Rate [ 58 L From Monitor] Pulse Rate [ Throughout] Respiratory 15 15 17 Rate Respiratory Rate [ Throughout] Blood Pressure 96/51 101/52 111/58 O2 Sat by Pulse 100 100 100 Oximetry 06/20/18 06/20/18 06/20/18 20:10 20:16 20:20 Temperature Pulse Rate 64 60 Pulse Rate [ From Monitor] Pulse Rate [ 58 L Throughout] Respiratory 14 14 Rate Respiratory 18 Rate [ Throughout] Blood Pressure 111/58 108/52 O2 Sat by Pulse 100 100 Oximetry 06/20/18 06/20/18 06/20/18 20:26 20:27 20:30 Temperature Pulse Rate 61 Pulse Rate [ From Monitor] Pulse Rate [ 58 L Throughout] Respiratory 15 Rate Respiratory 15 Rate [ Throughout] Blood Pressure 91/49 O2 Sat by Pulse 99 99 Oximetry 06/20/18 06/20/18 06/20/18 20:40 20:50 21:00 Temperature Pulse Rate 68 58 L 71 Pulse Rate [ From Monitor] Pulse Rate [ Throughout] Respiratory 20 17 15 Rate Respiratory Rate [ Throughout] Blood Pressure 91/49 91/52 91/52 O2 Sat by Pulse 93 98 93 Oximetry 06/20/18 06/20/18 06/20/18 21:10 21:20 21:30 Temperature Pulse Rate 61 65 55 L Pulse Rate [ From Monitor] Pulse Rate [ Throughout] Respiratory 19 17 16 Rate Respiratory Rate [ Throughout] Blood Pressure 91/52 105/54 112/59 O2 Sat by Pulse 98 90 100 Oximetry 06/20/18 06/20/18 06/20/18 21:40 21:50 22:00 Temperature Pulse Rate 65 57 L 62 Pulse Rate [ From Monitor] Pulse Rate [ Throughout] Respiratory 19 18 20 Rate Respiratory Rate [ Throughout] Blood Pressure 112/59 115/53 91/57 O2 Sat by Pulse 90 98 98 Oximetry 06/20/18 06/20/18 06/20/18 22:01 22:02 22:10 Temperature Pulse Rate 61 61 70 Pulse Rate [ From Monitor] Pulse Rate [ Throughout] Respiratory 20 Rate Respiratory Rate [ Throughout] Blood Pressure 91/57 91/57 91/57 O2 Sat by Pulse 96 Oximetry 06/20/18 06/20/18 06/20/18 22:20 22:27 22:30 Temperature Pulse Rate 71 62 Pulse Rate [ From Monitor] Pulse Rate [ Throughout] Respiratory 16 19 20 Rate Respiratory Rate [ Throughout] Blood Pressure 91/57 93/54 O2 Sat by Pulse 96 93 Oximetry 06/20/18 06/20/18 06/20/18 22:40 22:50 23:00 Temperature Pulse Rate 63 55 L 57 L Pulse Rate [ From Monitor] Pulse Rate [ Throughout] Respiratory 19 17 15 Rate Respiratory Rate [ Throughout] Blood Pressure 93/54 105/57 108/57 O2 Sat by Pulse 95 97 96 Oximetry 06/20/18 06/20/18 06/20/18 23:10 23:20 23:30 Temperature Pulse Rate 63 56 L 60 Pulse Rate [ From Monitor] Pulse Rate [ Throughout] Respiratory 13 15 18 Rate Respiratory Rate [ Throughout] Blood Pressure 108/57 128/67 112/61 O2 Sat by Pulse 95 98 89 Oximetry 06/20/18 06/20/18 06/21/18 23:40 23:50 00:00 Temperature Pulse Rate 55 L 56 L 55 L Pulse Rate [ 54 L From Monitor] Pulse Rate [ Throughout] Respiratory 17 17 15 Rate Respiratory Rate [ Throughout] Blood Pressure 112/61 103/71 122/67 O2 Sat by Pulse 99 99 99 Oximetry 06/21/18 06/21/18 06/21/18 00:06 00:10 00:20 Temperature 99.2 F Pulse Rate 56 L 55 L Pulse Rate [ From Monitor] Pulse Rate [ Throughout] Respiratory 16 15 Rate Respiratory Rate [ Throughout] Blood Pressure 122/67 122/67 O2 Sat by Pulse 98 98 Oximetry 06/21/18 06/21/18 06/21/18 00:30 00:40 00:50 Temperature Pulse Rate 54 L 56 L 61 Pulse Rate [ From Monitor] Pulse Rate [ Throughout] Respiratory 17 18 16 Rate Respiratory Rate [ Throughout] Blood Pressure 125/65 125/65 122/95 O2 Sat by Pulse 98 98 97 Oximetry 06/21/18 06/21/18 06/21/18 01:00 01:10 01:20 Temperature Pulse Rate 67 60 61 Pulse Rate [ From Monitor] Pulse Rate [ Throughout] Respiratory 20 16 15 Rate Respiratory Rate [ Throughout] Blood Pressure 122/95 122/95 99/53 O2 Sat by Pulse 97 98 99 Oximetry 06/21/18 06/21/18 06/21/18 01:30 01:40 01:50 Temperature Pulse Rate 70 64 64 Pulse Rate [ From Monitor] Pulse Rate [ Throughout] Respiratory 20 18 19 Rate Respiratory Rate [ Throughout] Blood Pressure 91/49 91/49 86/56 O2 Sat by Pulse 96 97 96 Oximetry 06/21/18 06/21/18 06/21/18 02:00 02:10 02:20 Temperature Pulse Rate 60 58 L 59 L Pulse Rate [ From Monitor] Pulse Rate [ Throughout] Respiratory 17 17 18 Rate Respiratory Rate [ Throughout] Blood Pressure 97/55 97/55 111/60 O2 Sat by Pulse 98 99 99 Oximetry 06/21/18 06/21/18 06/21/18 02:30 02:40 02:50 Temperature Pulse Rate 68 59 L 65 Pulse Rate [ From Monitor] Pulse Rate [ Throughout] Respiratory 24 18 16 Rate Respiratory Rate [ Throughout] Blood Pressure 106/58 97/55 101/56 O2 Sat by Pulse 97 98 99 Oximetry 06/21/18 06/21/18 06/21/18 03:00 03:10 03:20 Temperature Pulse Rate 66 75 78 Pulse Rate [ From Monitor] Pulse Rate [ Throughout] Respiratory 17 27 H 23 Rate Respiratory Rate [ Throughout] Blood Pressure 90/51 106/58 106/58 O2 Sat by Pulse 97 97 95 Oximetry 06/21/18 06/21/18 06/21/18 03:30 03:40 03:50 Temperature Pulse Rate 80 63 72 Pulse Rate [ From Monitor] Pulse Rate [ Throughout] Respiratory 19 20 10 L Rate Respiratory Rate [ Throughout] Blood Pressure 106/58 106/58 91/49 O2 Sat by Pulse 89 97 97 Oximetry 06/21/18 06/21/18 06/21/18 04:00 04:10 04:32 Temperature 98.3 F 98.3 F Pulse Rate 72 61 Pulse Rate [ 63 From Monitor] Pulse Rate [ Throughout] Respiratory 11 L 21 Rate Respiratory Rate [ Throughout] Blood Pressure 91/49 91/49 O2 Sat by Pulse 98 97 Oximetry 06/21/18 05:22 Temperature Pulse Rate 55 L Pulse Rate [ From Monitor] Pulse Rate [ Throughout] Respiratory Rate Respiratory Rate [ Throughout] Blood Pressure 122/67 O2 Sat by Pulse Oximetry Constitutional: lethargic, other (elderly and chronically ill looking CM ) Eyes: non-icteric ENT: oropharynx moist Neck: supple, no JVD, other (no thyromegaly) Effort: other (hypoventilating) Ascultation: Bilateral: diminished breath sounds, other (prolonged expiratory phase) Percussion: Bilateral: not dull Cardiovascular: regular rate and rhythm Gastrointestinal: normoactive bowel sounds, soft, non-tender, non-distended Integumentary: normal Extremities: no cyanosis, no edema, pink and warm, pulses normal Neurologic: pupils equal and round, unable to assess Psychiatric: other (delirious) CBC and BMP: 05/04/19 11:55 06/22/18 05:11 ABG, PT/INR, D-dimer: ABG POC ABG pH 7.381 (7.35-7.45) 06/20/18 11:51 POC ABG pCO2 44.7 (35-45) 06/20/18 11:51 POC ABG pO2 86 (80-105) 06/20/18 11:51 POC ABG HCO3 26.5 (22-26 mml/L) 06/20/18 11:51 POC ABG Total CO2 28 (23-27mmol/L) 06/20/18 11:51 POC ABG O2 Sat 96 06/20/18 11:51 PT/INR, D-dimer PT 16.6 Sec. (12.2-14.9) H 06/18/18 05:06 INR 1.26 (0.87-1.13) H 06/18/18 05:06 Abnormal lab findings: Abnormal Labs 06/02/18 06/02/18 06/02/18 21:25 21:25 22:03 WBC RBC Hgb Hct MCV MCH 33 H MCHC 35 H RDW 12.8 L Plt Count Lymph % (Auto) Seg Neutrophils % Seg Neuts % (Manual) 80.0 H Lymphocytes % (Manual) Seg Neutrophils # Lymphocytes # (Manual) 0.8 L PT INR Sodium 109 L* Potassium Chloride 71.3 L Carbon Dioxide BUN 6 L Creatinine 0.5 L Glucose Calcium Magnesium Ammonia Total Creatine Kinase 420 H Total Protein Albumin Urine WBC (Auto) 24.0 H 06/03/18 06/03/18 06/03/18 00:15 06:27 09:42 WBC RBC Hgb Hct MCV MCH MCHC RDW Plt Count Lymph % (Auto) Seg Neutrophils % Seg Neuts % (Manual) Lymphocytes % (Manual) Seg Neutrophils # Lymphocytes # (Manual) PT INR Sodium 113 L* 118 L* 116 L* Potassium 3.5 L 3.5 L Chloride 77.2 L 79.1 L 78.2 L Carbon Dioxide BUN 5 L 4 L 4 L Creatinine 0.4 L 0.5 L 0.4 L Glucose Calcium 8.2 L 7.9 L 8.1 L Magnesium Ammonia Total Creatine Kinase Total Protein Albumin Urine WBC (Auto) 06/03/18 06/03/18 06/03/18 14:41 14:41 20:45 WBC RBC Hgb Hct MCV MCH MCHC RDW Plt Count Lymph % (Auto) Seg Neutrophils % Seg Neuts % (Manual) Lymphocytes % (Manual) Seg Neutrophils # Lymphocytes # (Manual) PT INR Sodium 114 L* 118 L* Potassium 3.1 L Chloride 76.3 L 79.7 L Carbon Dioxide BUN 4 L 3 L Creatinine 0.5 L 0.4 L Glucose Calcium 8.1 L 8.3 L Magnesium Ammonia 23.0 L Total Creatine Kinase Total Protein Albumin Urine WBC (Auto) 06/04/18 06/04/18 06/04/18 04:39 09:47 09:47 WBC RBC Hgb Hct MCV 95 H MCH 33 H MCHC RDW 12.8 L Plt Count Lymph % (Auto) Seg Neutrophils % Seg Neuts % (Manual) 92.0 H Lymphocytes % (Manual) 5.0 L Seg Neutrophils # Lymphocytes # (Manual) 0.3 L PT INR Sodium 123 L Potassium Chloride 85.2 L Carbon Dioxide BUN 5 L Creatinine 0.5 L Glucose 129 H Calcium 8.3 L Magnesium Ammonia Total Creatine Kinase Total Protein 5.5 L Albumin 3.1 L Urine WBC (Auto) 06/05/18 06/06/18 06/07/18 04:29 05:25 07:11 WBC RBC Hgb Hct MCV MCH MCHC RDW Plt Count Lymph % (Auto) Seg Neutrophils % Seg Neuts % (Manual) Lymphocytes % (Manual) Seg Neutrophils # Lymphocytes # (Manual) PT INR Sodium 126 L 133 L D 126 L D Potassium Chloride 90.4 L 95.1 L 86.1 L Carbon Dioxide BUN 8 L Creatinine 0.5 L 0.5 L 0.5 L Glucose 170 H 123 H 129 H Calcium 8.2 L 8.1 L Magnesium Ammonia Total Creatine Kinase Total Protein Albumin Urine WBC (Auto) 06/08/18 06/09/18 06/10/18 11:03 06:13 07:14 WBC RBC Hgb Hct MCV MCH MCHC RDW Plt Count Lymph % (Auto) Seg Neutrophils % Seg Neuts % (Manual) Lymphocytes % (Manual) Seg Neutrophils # Lymphocytes # (Manual) PT INR Sodium 134 L D Potassium Chloride 92.2 L Carbon Dioxide 31 H BUN Creatinine 0.5 L 0.6 L 0.5 L Glucose 106 H 130 H 126 H Calcium Magnesium Ammonia Total Creatine Kinase Total Protein Albumin Urine WBC (Auto) 06/11/18 06/12/18 06/13/18 10:23 04:58 05:33 WBC RBC Hgb Hct MCV MCH MCHC RDW Plt Count Lymph % (Auto) Seg Neutrophils % Seg Neuts % (Manual) Lymphocytes % (Manual) Seg Neutrophils # Lymphocytes # (Manual) PT INR Sodium 136 L 134 L Potassium 3.5 L Chloride Carbon Dioxide BUN 27 H Creatinine 0.4 L 0.5 L 0.6 L Glucose 155 H 141 H 112 H Calcium 8.1 L 7.9 L 8.3 L Magnesium Ammonia Total Creatine Kinase Total Protein Albumin Urine WBC (Auto) 06/13/18 06/14/18 06/14/18 05:33 05:14 05:14 WBC 12.6 H 12.3 H RBC Hgb Hct MCV 97 H 98 H MCH 33 H MCHC RDW Plt Count 133 L Lymph % (Auto) Seg Neutrophils % Seg Neuts % (Manual) Lymphocytes % (Manual) Seg Neutrophils # Lymphocytes # (Manual) PT INR Sodium 146 H Potassium Chloride 107.2 H Carbon Dioxide BUN 31 H Creatinine 0.6 L Glucose 113 H Calcium Magnesium Ammonia Total Creatine Kinase Total Protein Albumin Urine WBC (Auto) 06/15/18 06/15/18 06/16/18 04:47 04:47 03:20 WBC 16.7 H RBC Hgb Hct MCV 97 H MCH MCHC RDW Plt Count 138 L Lymph % (Auto) Seg Neutrophils % Seg Neuts % (Manual) Lymphocytes % (Manual) Seg Neutrophils # Lymphocytes # (Manual) PT INR Sodium 146 H Potassium Chloride 109.2 H Carbon Dioxide BUN 32 H Creatinine 0.6 L Glucose 124 H Calcium 7.8 L Magnesium Ammonia Total Creatine Kinase Total Protein Albumin Urine WBC (Auto) 89.0 H 06/16/18 06/17/18 06/17/18 05:22 08:21 08:21 WBC 11.4 H RBC Hgb Hct MCV 98 H MCH 33 H MCHC RDW Plt Count 107 L Lymph % (Auto) Seg Neutrophils % Seg Neuts % (Manual) Lymphocytes % (Manual) Seg Neutrophils # Lymphocytes # (Manual) PT INR Sodium 146 H 146 H Potassium Chloride 109.0 H 109.2 H Carbon Dioxide BUN 39 H 47 H Creatinine Glucose 120 H 109 H Calcium 7.9 L 8.3 L Magnesium 2.60 H Ammonia Total Creatine Kinase Total Protein 5.2 L Albumin 2.9 L Urine WBC (Auto) 06/18/18 06/19/18 06/19/18 05:06 09:10 09:10 WBC RBC 3.50 L Hgb 11.7 L Hct 34.4 L MCV 98 H MCH 33 H MCHC RDW Plt Count 98 L Lymph % (Auto) 11.8 L Seg Neutrophils % 82.4 H Seg Neuts % (Manual) Lymphocytes % (Manual) Seg Neutrophils # 8.8 H Lymphocytes # (Manual) PT 16.6 H INR 1.26 H Sodium 146 H Potassium Chloride 107.3 H Carbon Dioxide BUN 29 H Creatinine 0.7 L Glucose 74 L Calcium 7.6 L Magnesium Ammonia Total Creatine Kinase Total Protein Albumin Urine WBC (Auto) Allied health notes reviewed: nursing
[2018-06-21] MEDS: DUONEB *Not for PRN Use IH SCH ×3 (08:10→19:57)
[2018-06-21] MEDS: PULMICORT IH SCH ×2 (08:10→19:40)
[2018-06-21] MEDS: BROVANA NEBU IH SCH ×2 (08:10→19:40)
--- NOTE | 2018-06-21 09:05 | XRay Report ---
PROCEDURE: XR ABDOMEN 1V AP TECHNIQUE: Abdominal radiograph, single view. HISTORY: for Dobbhoff placement confirmation COMPARISONS: Abdomen x-ray June 20, 2018. FINDINGS: Enteric tube tip is in the body of the stomach. Bowel gas appearance is nonspecific and non-distended. There is no pneumoperitoneum. There is no air fluid level. There is no obstructive pattern. [id number] stool. No suspicious calcifications overlying the renal shadows. Degenerative changes are present in the spine and hips. Scoliosis. IMPRESSION: * Nonspecific nonobstructive bowel gas pattern. This document is electronically signed by Franklin Romero MD., Jun 21 2018 09:03:03 AM ET
[2018-06-21] MEDS: LOPRESSOR PO SCH (10:34)
[2018-06-21] MEDS: FLOMAX PO SCH (10:56)
[2018-06-21] MEDS: VITAMIN B-1 PO SCH (10:56)
[2018-06-21] MEDS: SODIUM CHLORIDE FLUSH SYRINGE 10 ML IV SCH ×2 (10:56→21:26)
[2018-06-21] MEDS: PROTONIX PO SCH (10:56)
[2018-06-21] MEDS: FOLVITE PO SCH (10:56)
[2018-06-21] MEDS: LOVENOX SUB-Q SCH (10:56)
[2018-06-21] MEDS: Centrum Liq PO SCH (10:56)
[2018-06-21] MEDS: MAXIPIME/NS 2 GM/100 ML 2 GM/100 ML BAG IV SCH ×2 (10:56→21:25)
[2018-06-21] MEDS: MORPHINE IV PRN ×2 (10:59→20:51)
--- NOTE | 2018-06-21 11:14 | Progress Note ---
Assessment and Plan Assessment and plan: 72-year-old man with history of alcoholism and likely dementia which has not been diagnosed with suspected by family. The patient's and he was dependent on her past the week 2 weeks prior. He was home by himself, is apparently drinking heavily not eating and not. He had been confused per his son and neighbors. His son and asked him to go to the ER , then he called the EMS. The patient was found to have a very low sodium, agitated and confused. CT head no acute findings Chest x-ray no acute findings -The patient is on [facility] protocol for alcohol withdrawal. He is now out of the window for alcohol withdrawal -He was counseled on tobacco cessation, time spent greater than 10 minutes -The patient was initially very hyponatremic when he came to the hospital, he r eceived saline IV, salt tabs and his potassium was replaced. -The patient developed urinary retention, therefore [place] catheter placed -He received a course of steroids and nebulizers for COPD exacerbation, now improved. -he had very poor by mouth intake, he was only taking sips of drinks some barely consuming any food. 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 -cont abx for UTI- e fecalis, for total 5 days ending 06-20-18 -Patient now developed some hypernatremia from free water deficit, continue D5 water, plan for PEG tube, son has given consent, planned for Saturday -06/20; was agitated and in rapid afib, gave IV metoprolol, placed NGT to cont meds, received ativan per [facility] protocol then became hypotensive, IVF and pressors, transfer to [facility] -06/21; improving, weaning off pressors -dc to SNF with hospice when improved Diagnoses Afib with RVR, PAF hypotension, likely 2/2 ativan administration hypercoaguable state Alcohol dependence and withdrawal Acute metabolic encephalopathy Severe hyponatremia, now resolved mild hypernatremia- d5w drip Hypercholesteremia Beer potomania severe malnutrition COPD exacerbation Tobacco abuse, current every day smoker Acute hypoxic respiratory failure Dementia severe malnutrition Sepsis UTI -Urinary retention/obstructive uropathy - CCT 33 minutes History Interval history: he was extremely agitated requiring ativan, after which he became hypotensive requiring dopamine ggt he was very tachycardic needing iv metoprolol Review of systems Constitutional: No fevers, no malaise, no joint pains CVS: No chest pain, no orthopnea, no dyspnea on exertion, no pedal edema GI: No abdominal pain, no diarrhea, no vomiting, no constipation has not been eating Respiratory: no sob or cough Hospitalist Physical - Physical exam Narrative exam: General.: , nontoxic HEENT: Moist mucous membranes, extraocular muscles intact, no lymphadenopathy Neck: supple Cardiac: S1-S2 heard Lungs: CTA Abdomen: soft , nontender, nondistended, bowel sounds positive Extremities: no edema clubbing or cyanosis Skin: no rash or lesions Neurologic: Confused, moves all extremities Psych: calm, - Constitutional Vitals: Temp Pulse Resp BP Pulse Ox 98.3 F 116 H 16 122/67 98 06/21/18 04:32 06/21/18 08:13 06/21/18 08:13 06/21/18 05:22 06/21/18 08:13 General appearance: Present: no acute distress, cachectic, other (lethargic) Results - Labs CBC & Chem 7: 06/24/18 00:39 06/24/18 05:00 Labs: Laboratory Last Values WBC 10.6 K/mm3 (4.5-11.0) 06/19/18 09:10 RBC 3.50 M/mm3 (3.65-5.03) L 06/19/18 09:10 Hgb 11.7 gm/dl (11.8-15.2) L 06/19/18 09:10 Hct 34.4 % (35.5-45.6) L 06/19/18 09:10 MCV 98 fl (84-94) H 06/19/18 09:10 MCH 33 pg (28-32) H 06/19/18 09:10 MCHC 34 % (32-34) 06/19/18 09:10 RDW 13.6 % (13.2-15.2) 06/19/18 09:10 Plt Count 98 K/mm3 (140-440) L 06/19/18 09:10 Lymph % (Auto) 11.8 % (13.4-35.0) L 06/19/18 09:10 Dickenson % (Auto) 4.9 % (0.0-7.3) 06/19/18 09:10 Eos % (Auto) 0.5 % (0.0-4.3) 06/19/18 09:10 Baso % (Auto) 0.4 % (0.0-1.8) 06/19/18 09:10 Lymph # 1.3 K/mm3 (1.2-5.4) 06/19/18 09:10 Dickenson # 0.5 K/mm3 (0.0-0.8) 06/19/18 09:10 Eos # 0.0 K/mm3 (0.0-0.4) 06/19/18 09:10 Baso # 0.0 K/mm3 (0.0-0.1) 06/19/18 09:10 Add Manual Diff Complete 06/04/18 09:47 Total Counted 100 06/04/18 09:47 Seg Neutrophils % 82.4 % (40.0-70.0) H 06/19/18 09:10 Seg Neuts % (Manual) 92.0 % (40.0-70.0) H 06/04/18 09:47 Band Neutrophils % 0 % 06/04/18 09:47 Lymphocytes % (Manual) 5.0 % (13.4-35.0) L 06/04/18 09:47 Reactive Lymphs % (Man) 0 % 06/04/18 09:47 Monocytes % (Manual) 3.0 % (0.0-7.3) 06/04/18 09:47 Eosinophils % (Manual) 0 % (0.0-4.3) 06/04/18 09:47 Basophils % (Manual) 0 % (0.0-1.8) 06/04/18 09:47 Metamyelocytes % 0 % 06/04/18 09:47 Myelocytes % 0 % 06/04/18 09:47 Promyelocytes % 0 % 06/04/18 09:47 Blast Cells % 0 % 06/04/18 09:47 Nucleated RBC % Not Reportable 06/04/18 09:47 Seg Neutrophils # 8.8 K/mm3 (1.8-7.7) H 06/19/18 09:10 Seg Neutrophils # Man 4.9 K/mm3 (1.8-7.7) 06/04/18 09:47 Band Neutrophils # 0.0 K/mm3 06/04/18 09:47 Lymphocytes # (Manual) 0.3 K/mm3 (1.2-5.4) L 06/04/18 09:47 Abs React Lymphs (Man) 0.0 K/mm3 06/04/18 09:47 Monocytes # (Manual) 0.2 K/mm3 (0.0-0.8) 06/04/18 09:47 Eosinophils # (Manual) 0.0 K/mm3 (0.0-0.4) 06/04/18 09:47 Basophils # (Manual) 0.0 K/mm3 (0.0-0.1) 06/04/18 09:47 Metamyelocytes # 0.0 K/mm3 06/04/18 09:47 Myelocytes # 0.0 K/mm3 06/04/18 09:47 Promyelocytes # 0.0 K/mm3 06/04/18 09:47 Blast Cells # 0.0 K/mm3 06/04/18 09:47 WBC Morphology Not Reportable 06/04/18 09:47 Hypersegmented Neuts Not Reportable 06/04/18 09:47 Hyposegmented Neuts Not Reportable 06/04/18 09:47 Hypogranular Neuts Not Reportable 06/04/18 09:47 Smudge Cells Not Reportable 06/04/18 09:47 Toxic Granulation 1+ 06/04/18 09:47 Toxic Vacuolation Not Reportable 06/04/18 09:47 Dohle Bodies Not Reportable 06/04/18 09:47 Pelger-Huet Anomaly Not Reportable 06/04/18 09:47 Dashawn Rods Not Reportable 06/04/18 09:47 Platelet Estimate Consistent w auto 06/04/18 09:47 Clumped Platelets Not Reportable 06/04/18 09:47 Plt Clumps, EDTA Not Reportable 06/04/18 09:47 Large Platelets Not Reportable 06/04/18 09:47 Giant Platelets Not Reportable 06/04/18 09:47 Platelet Satelliting Not Reportable 06/04/18 09:47 Plt Morphology Comment Not Reportable 06/04/18 09:47 RBC Morphology Normal 06/04/18 09:47 Dimorphic RBCs Not Reportable 06/04/18 09:47 Polychromasia Not Reportable 06/04/18 09:47 Hypochromasia Not Reportable 06/04/18 09:47 Poikilocytosis Not Reportable 06/04/18 09:47 Anisocytosis Not Reportable 06/04/18 09:47 Microcytosis Not Reportable 06/04/18 09:47 Macrocytosis Not Reportable 06/04/18 09:47 Spherocytes Not Reportable 06/04/18 09:47 Pappenheimer Bodies Not Reportable 06/04/18 09:47 Sickle Cells Not Reportable 06/04/18 09:47 Target Cells Not Reportable 06/04/18 09:47 Tear Drop Cells Not Reportable 06/04/18 09:47 Ovalocytes Not Reportable 06/04/18 09:47 Helmet Cells Not Reportable 06/04/18 09:47 Olivier-Goehner Bodies Not Reportable 06/04/18 09:47 Dubois Rings Not Reportable 06/04/18 09:47 Mic Cells Not Reportable 06/04/18 09:47 Bite Cells Not Reportable 06/04/18 09:47 Crenated Cell Not Reportable 06/04/18 09:47 Elliptocytes Not Reportable 06/04/18 09:47 Acanthocytes (Spur) Not Reportable 06/04/18 09:47 Rouleaux Not Reportable 06/04/18 09:47 Hemoglobin C Crystals Not Reportable 06/04/18 09:47 Schistocytes Not Reportable 06/04/18 09:47 Malaria parasites Not Reportable 06/04/18 09:47 Rajesh Bodies Not Reportable 06/04/18 09:47 Hem Pathologist Commnt No 06/04/18 09:47 PT 16.6 Sec. (12.2-14.9) H 06/18/18 05:06 INR 1.26 (0.87-1.13) H 06/18/18 05:06 POC ABG pH 7.381 (7.35-7.45) 06/20/18 11:51 POC ABG pCO2 44.7 (35-45) 06/20/18 11:51 POC ABG pO2 86 (80-105) 06/20/18 11:51 POC ABG HCO3 26.5 (22-26 mml/L) 06/20/18 11:51 POC ABG Total CO2 28 (23-27mmol/L) 06/20/18 11:51 POC ABG O2 Sat 96 06/20/18 11:51 POC ABG Base Excess 1 ((-2) - (+3)mmol/L) 06/20/18 11:51 FiO2 3 % 06/20/18 11:51 Sodium 146 mmol/L (137-145) H 06/19/18 09:10 Potassium 4.5 mmol/L (3.6-5.0) D 06/19/18 09:10 Chloride 107.3 mmol/L (98-107) H 06/19/18 09:10 Carbon Dioxide 26 mmol/L (22-30) 06/19/18 09:10 Anion Gap 17 mmol/L 06/19/18 09:10 BUN 29 mg/dL (9-20) H 06/19/18 09:10 Creatinine 0.7 mg/dL (0.8-1.5) L 06/19/18 09:10 Estimated GFR > 60 ml/min 06/19/18 09:10 BUN/Creatinine Ratio 41 % 06/19/18 09:10 Glucose 74 mg/dL (75-100) L 06/19/18 09:10 POC Glucose 70 (70-105) 06/18/18 21:43 Osmolality 312 Mosm/kg 06/18/18 11:19 Uric Acid 3.5 mg/dL (3.5-7.6) 06/18/18 11:19 Calcium 7.6 mg/dL (8.4-10.2) L 06/19/18 09:10 Phosphorus 3.90 mg/dL (2.5-4.5) 06/04/18 09:47 Magnesium 2.60 mg/dL (1.7-2.3) H 06/17/18 08:21 Total Bilirubin 1.00 mg/dL (0.1-1.2) 06/17/18 08:21 Direct Bilirubin < 0.2 mg/dL (0-0.2) 06/04/18 04:39 Indirect Bilirubin 0.2 mg/dL 06/04/18 04:39 AST 26 units/L (5-40) 06/17/18 08:21 ALT 30 units/L (7-56) 06/17/18 08:21 Alkaline Phosphatase 49 units/L (35-129) 06/17/18 08:21 Ammonia 55.0 umol/L (25-60) 06/16/18 17:33 Total Creatine Kinase 420 units/L (55-170) H 06/02/18 21:25 Troponin T < 0.010 ng/mL (0.00-0.029) 06/02/18 21:25 NT-Pro-B Natriuret Pep 379.8 pg/mL (0-900) 06/02/18 21:25 Total Protein 5.2 g/dL (6.3-8.2) L 06/17/18 08:21 Albumin 2.9 g/dL (3.9-5) L 06/17/18 08:21 Albumin/Globulin Ratio 1.3 % 06/17/18 08:21 Vitamin B12 697.5 pg/mL (211-911) 06/16/18 17:33 TSH 1.100 mlU/mL (0.270-4.200) 06/03/18 20:45 Urine Color Yellow (Yellow) 06/16/18 03:20 Urine Turbidity Cloudy (Clear) 06/16/18 03:20 Urine pH 5.0 (5.0-7.0) 06/16/18 03:20 Ur Specific [place] 1.020 (1.003-1.030) 06/16/18 03:20 Urine Protein <15 mg/dl mg/dL (Negative) 06/16/18 03:20 Urine Glucose (UA) Neg mg/dL (Negative) 06/16/18 03:20 Urine Ketones Neg mg/dL (Negative) 06/16/18 03:20 Urine Blood Sm (Negative) 06/16/18 03:20 Urine Nitrite Neg (Negative) 06/16/18 03:20 Urine Bilirubin Neg (Negative) 06/16/18 03:20 Urine Urobilinogen < 2.0 mg/dL (<2.0) 06/16/18 03:20 Ur Leukocyte Esterase Lg (Negative) 06/16/18 03:20 Urine WBC (Auto) 89.0 /HPF (0.0-6.0) H 06/16/18 03:20 Urine RBC (Auto) 10.0 /HPF (0.0-6.0) 06/16/18 03:20 U Epithel Cells (Auto) 2.0 /HPF (0-13.0) 06/16/18 03:20 Urine Bacteria (Auto) 1+ /HPF (Negative) 06/16/18 03:20 Urine Mucus Few /HPF 06/16/18 03:20 Urine Yeast (Budding) 1+ /HPF 06/16/18 03:20 Urine Osmolality 203 Mosm/kg 06/02/18 22:02 Urine Sodium 66 mmol/L 06/18/18 10:05 RPR Nonreactive (Nonreactive) 06/16/18 17:33 Active Medications - Current Medications Current Medications: Generic Name Dose Route Start Last Admin Trade Name Freq PRN Reason Stop Dose Admin Acetaminophen 650 mg 06/03/18 00:05 06/21/18 03:23 Tylenol PO 650 mg Q4H PRN Administration Pain MILD(1-3)/Fever >100.5/CHANCE Acetaminophen 650 mg 06/16/18 15:03 06/19/18 07:46 Tylenol [place] 650 mg Q4H PRN Administration Non Cardiac Pain or Temp>100.5 Albuterol 2.5 mg 06/03/18 13:11 06/03/18 15:01 Proventil IH 2.5 mg Q4HRT PRN Administration Shortness Of Breath Albuterol/Ipratropium 1 ampul 06/05/18 20:00 06/21/18 08:10 Duoneb *Not For Prn Use* IH 1 ampul TIDRT CINDA Administration Lipase/Protease/Amylase 1 each 06/20/18 14:55 Pancreradha Salomon 10,500 Unit FEEDTUBE PRN PRN For Clogged Feeding Tube Arformoterol Tartrate 15 mcg 06/03/18 20:00 06/21/18 08:10 Brovana Nebu IH 15 mcg Q12HRT CINDA Administration Budesonide 0.5 mg 06/03/18 20:00 06/21/18 08:10 Pulmicort IH 0.5 mg Q12HRT CINDA Administration Clonidine HCl 0.1 mg 06/11/18 22:00 06/20/18 22:01 Catapres PO Not Given [facility] Enoxaparin Sodium 40 mg 06/03/18 10:00 06/21/18 10:56 Lovenox SUB-Q 40 mg QDAY@1000 CINDA Administration Folic Acid 1 mg 06/04/18 10:00 06/21/18 10:56 Folvite PO 1 mg QDAY CINDA Administration Haloperidol Lactate 5 mg 06/09/18 09:51 06/20/18 09:27 Haldol IM 5 mg Q6H PRN Administration Acute Psychosis Hydralazine HCl 10 mg 06/06/18 12:10 06/09/18 14:26 Apresoline IV 10 mg Q4H PRN Administration BP >160/100 Dextrose 1,000 mls @ 100 mls/hr 06/17/18 13:00 06/21/18 05:18 D5w IV 100 mls/hr DIRECT CINDA Administration Dopamine HCl/Dextrose 800 mg in 250 mls @ 5.334 mls/hr 06/20/18 12:18 06/20/18 13:35 Intropin Drip 800 Mg/D5w 250 Ml IV 06/22/18 11:10 3 mcg/kg/min TITR ONE 3.201 mls/hr Titration Protocol 5 MCG/KG/MIN Cefepime HCl 2 gm in 100 mls @ 200 mls/hr 06/20/18 22:00 06/21/18 10:56 Maxipime/Ns 2 Gm/100 Ml IV 200 mls/hr Q12HR CINDA Administration Protocol Vancomycin HCl 750 mg/ Sodium 265 mls @ 166.667 mls/hr 06/21/18 18:00 Chloride IV Q24H CINDA Lorazepam 2 mg 06/03/18 14:00 Ativan PO Q1H PRN CIWA-Ar 8-15 Lorazepam 4 mg 06/03/18 14:00 06/20/18 11:01 Ativan IV 4 mg Q1H PRN Administration CIWA-Ar 16-25 Lorazepam 4 mg 06/03/18 14:00 Ativan IV Q15MIN PRN CIWA-Ar >25 Melatonin 5 mg 06/07/18 19:41 06/10/18 23:30 Melatonin PO 5 mg QHS PRN Administration Sleep Metoprolol Tartrate 50 mg 06/11/18 10:00 06/21/18 10:34 Lopressor PO Not Given BID CINDA Metoprolol Tartrate 5 mg 06/20/18 12:00 06/21/18 05:22 Lopressor IV Not Given Q6HR CINDA Mirtazapine 15 mg 06/10/18 22:00 06/20/18 22:27 Remeron PO 15 mg QHS CINDA Administration Morphine Sulfate 2 mg 06/19/18 13:47 06/21/18 10:59 Morphine IV 2 mg Q3H PRN Administration Pain, Moderate (4-6) Multivitamins 5 ml 06/04/18 10:00 06/21/18 10:56 Centrum Liq PO 5 ml QDAY CINDA Administration Ondansetron HCl 4 mg 06/03/18 00:05 Zofran IV Q8H PRN Nausea And Vomiting Pantoprazole Sodium 40 mg 06/06/18 10:00 06/21/18 10:56 Protonix PO 40 mg DAILY CINDA Administration Simple Syrup 15 ml 06/20/18 14:55 Simple Syrup FEEDTUBE PRN PRN Hypoglycemia Simple Syrup 30 ml 06/20/18 14:55 Simple Syrup FEEDTUBE PRN PRN Hypoglycemia Sodium Bicarbonate 325 mg 06/20/18 14:55 Sodium Bicarbonate FEEDTUBE PRN PRN For Clogged Feeding Tube Sodium Chloride 10 ml 06/03/18 10:00 06/21/18 10:56 Sodium Chloride Flush Syringe 10 Ml IV 10 ml BID CINDA Administration Sodium Chloride 10 ml 06/03/18 00:05 Sodium Chloride Flush Syringe 10 Ml IV PRN PRN LINE FLUSH Tamsulosin HCl 0.4 mg 06/03/18 12:00 06/21/18 10:56 Flomax PO 0.4 mg QDAY CINDA Administration Thiamine HCl 100 mg 06/04/18 10:00 06/21/18 10:56 Vitamin B-1 PO 100 mg QDAY CINDA Administration Nutrition/Malnutrition Assess - Dietary Evaluation Nutrition/Malnutrition Findings: Nutrition Notes Start: 06/09/18 14:29 Freq: Status: Active Protocol: Document 06/20/18 13:44 RM (Rec: 06/20/18 13:53 RM [id number]) Nutrition Notes Initial or Follow up Reassessment Current Diagnosis COPD,Hypertension,Heart Failure Other Pertinent Diagnosis Alcoholic Hx, AMS, UTI, Dementia, Metabolic encephalopathy Current Diet NPO Labs/Tests Reviewed Pertinent Medications Reviewed Height 5 ft 10 in Weight 56.9 kg [place] Body Weight (kg) 75.45 BMI 18.0 Subjective/Other Information Consulted for TF recommendation. PEG placement scheduled for today per progress note 06/20/18 . Code met called and pt transferred to [facility]. PEG placement cancelled and dobhoff planned to be placed. Burn Absent Trauma Absent #1 Nutrition Diagnosis Inadequate oral intake Diagnosis Progress(for reassessment Continues documentation) Is patient on ventilator? No Is Patient Ambulatory and/or Out of Bed No REE-([place]-confined to bed) 1590.624 Kcal/Kg value to use for calculation 32 Approximate Energy Requirements Using 1821 kcal/Kg Calculation Used for Recommendations Kcal/kg Additional Notes Protein Needs: 61-73g (1-1.2g/ kg) Fluid Needs: 1 ml/kcal Nutrition Intervention Change Diet Order: TF consult Nutrition Support: Osmolite 1.5 at 55 ml/hr Water Flush 150ml q4h. Kcal 1,980 Protein (gm) 82 Fluid (mL) 1,005 Goal #1 TF consult Anticipated Discharge Needs: Unable to determine at this time Follow-Up By: 06/23/18 Additional Comments Follow for TF consult
[2018-06-21] MEDS ORDERED: LOPRESSOR IV PRN (11:22)
[2018-06-21] MEDS ORDERED: LOPRESSOR PO SCH (12:00)
[2018-06-21 12:23] LABS: Basophils % (Auto) 0.1 % (0.0-1.8); Eosinophils # (Auto) 0.1 K/mm3 (0.0-0.4); Eosinophils % (Auto) 1.6 % (0.0-4.3); Hematocrit 29.4 % (35.5-45.6); Lymphocytes # (Auto) 0.6 K/mm3 (1.2-5.4); Lymphocytes % (Auto) 10.7 % (13.4-35.0); Mean Corpuscular HGB Conc 34 % (32-34); Mean Corpuscular Volume 97 fl (84-94); Monocytes # (Auto) 0.2 K/mm3 (0.0-0.8); Monocytes % (Auto) 4.2 % (0.0-7.3); Red Blood Count 3.05 M/mm3 (3.65-5.03); Red Cell Distribution Width 12.6 % (13.2-15.2)
[2018-06-21 12:25] LABS: BUN/Creatinine Ratio 23; Blood Urea Nitrogen 9 mg/dL (9-20); Calcium 7.4 mg/dL (8.4-10.2); Hemolysis Index 7
[2018-06-21 12:27] LABS: Platelet Count 84 K/mm3 (140-440)
[2018-06-21] MEDS ORDERED: D5NS 1,000 ML IV SCH (13:00)
[2018-06-21] MEDS ORDERED: MAGNESIUM SULFATE 4GM/100ML 4 GM/100 ML BAG IV ONE (14:00)
[2018-06-21] MEDS ORDERED: KPHOS 45 MMOL in NACL 0.9% 500 ML 500 ML IV ONE (14:00)
[2018-06-21] MEDS ORDERED: POTASSIUM CHLORIDE FEEDTUBE ONE (14:00)
[2018-06-21] MEDS ORDERED: SODIUM CHLORIDE PO SCH (14:16)
--- NOTE | 2018-06-21 15:49 | Progress Note ---
Assessment and Plan 1. Oropharyngeal dysphagia - getting tube feeds via Dobhoff. Pt's son present at bedside, and plans discussed. At this point, pt is getting nutritional support via Dobhoff. - will do PEG when close to ready for discharge, or if keeps pulling Dobhoff out. Subjective Date of service: 06/21/18 Principal diagnosis: AE-COPD; Acute metabolic-toxic encephalopathy; hyponatremia Interval history: Pt better today. Off pressors. Still more lethargic and speech more garbled than 3-4 days ago. Apparently complained of abd discomfort earlier, and was given morphine. Has Dobhoff in place and tolerating TFs, though has pulled tube out last night. Objective - Constitutional Vitals: Vital Signs - 12hr 06/21/18 06/21/18 06/21/18 03:50 04:00 04:10 Temperature 98.3 F Pulse Rate 72 72 61 Pulse Rate [ 63 From Monitor] Pulse Rate [ Throughout] Respiratory 10 L 11 L 21 Rate Respiratory Rate [ Throughout] Blood Pressure 91/49 91/49 91/49 O2 Sat by Pulse 97 98 97 Oximetry 06/21/18 06/21/18 06/21/18 04:32 05:22 08:00 Temperature 98.3 F Pulse Rate 55 L Pulse Rate [ From Monitor] Pulse Rate [ 90 Throughout] Respiratory Rate Respiratory 18 Rate [ Throughout] Blood Pressure 122/67 O2 Sat by Pulse Oximetry 06/21/18 06/21/18 06/21/18 08:13 12:00 14:53 Temperature 98.5 F Pulse Rate Pulse Rate [ From Monitor] Pulse Rate [ 116 H 112 H Throughout] Respiratory Rate Respiratory 16 18 Rate [ Throughout] Blood Pressure O2 Sat by Pulse 98 Oximetry 06/21/18 14:54 Temperature Pulse Rate Pulse Rate [ From Monitor] Pulse Rate [ 115 H Throughout] Respiratory Rate Respiratory 18 Rate [ Throughout] Blood Pressure O2 Sat by Pulse Oximetry General appearance: Present: cachectic, other (constant tremors of hands and arms) - EENT Eyes: PERRL, EOM intact ENT: hearing intact - Respiratory Respiratory effort: normal - Gastrointestinal General gastrointestinal: Present: soft, non-tender - Labs CBC & Chem 7: 06/21/18 11:55 06/21/18 11:55 Labs: Abnormal lab results 06/21/18 06/21/18 Range/Units 11:55 11:55 RBC 3.05 L (3.65-5.03) M/mm3 Hgb 10.0 L (11.8-15.2) gm/dl Hct 29.4 L (35.5-45.6) % MCV 97 H (84-94) fl MCH 33 H (28-32) pg RDW 12.6 L (13.2-15.2) % Plt Count 84 L (140-440) K/mm3 Lymph % (Auto) 10.7 L (13.4-35.0) % Lymph # 0.6 L (1.2-5.4) K/mm3 Seg Neutrophils % 83.4 H (40.0-70.0) % Sodium 130 L D (137-145) mmol/L Potassium 2.9 L* D (3.6-5.0) mmol/L Chloride 93.8 L (98-107) mmol/L Creatinine 0.4 L (0.8-1.5) mg/dL Glucose 107 H (75-100) mg/dL Calcium 7.4 L (8.4-10.2) mg/dL Phosphorus 1.90 L (2.5-4.5) mg/dL Magnesium 1.50 L (1.7-2.3) mg/dL Medications & Allergies - Medications Allergies/Adverse Reactions: Allergies diphenhydramine HCl [From Benadryl] Allergy (Verified 09/24/14 11:56) Unknown HALLUCINATIONS Home Medications: Home Medications Medication Instructions Recorded Confirmed Last Taken Type Albuterol *Only Ed* [Proventil 2.5 mg IH Q4HRT PRN #1 nebu 10/03/14 06/03/18 Unknown Rx 0.5% NEBS] Folic Acid [Folvite] 1 mg PO QDAY #30 tablet 10/03/14 06/03/18 Unknown Rx Furosemide [Lasix TAB] 20 mg PO QDAY #30 tablet 10/03/14 06/03/18 Unknown Rx Metoprolol [Lopressor TAB] 12.5 mg PO BID #60 tablet 10/03/14 06/03/18 Unknown Rx Multivitamins Liq [Multiple 5 ml PO QDAY 30 Days oral.liqd 10/03/14 06/03/18 Unknown Rx Vitamin Liq (Theragran)] Thiamine [Vitamin B-1] 100 mg PO QDAY #30 tablet 10/03/14 06/03/18 Unknown Rx Active Medications: Generic Name Dose Route Start Last Admin Trade Name Freq PRN Reason Stop Dose Admin Acetaminophen 650 mg 06/03/18 00:05 06/21/18 03:23 Tylenol PO 650 mg Q4H PRN Administration Pain MILD(1-3)/Fever >100.5/CHANCE Acetaminophen 650 mg 06/16/18 15:03 06/19/18 07:46 Tylenol [place] 650 mg Q4H PRN Administration Non Cardiac Pain or Temp>100.5 Albuterol 2.5 mg 06/03/18 13:11 06/03/18 15:01 Proventil IH 2.5 mg Q4HRT PRN Administration Shortness Of Breath Albuterol/Ipratropium 1 ampul 06/05/18 20:00 06/21/18 14:49 Duoneb *Not For Prn Use* IH 1 ampul TIDRT CINDA Administration Lipase/Protease/Amylase 1 each 06/20/18 14:55 Pancreaznupur Salomon 10,500 Unit FEEDTUBE PRN PRN For Clogged Feeding Tube Arformoterol Tartrate 15 mcg 06/03/18 20:00 06/21/18 08:10 Brovana Nebu IH 15 mcg Q12HRT CINDA Administration Budesonide 0.5 mg 06/03/18 20:00 06/21/18 08:10 Pulmicort IH 0.5 mg Q12HRT CINDA Administration Clonidine HCl 0.1 mg 06/11/18 22:00 06/20/18 22:01 Catapres PO Not Given HS CINDA Enoxaparin Sodium 40 mg 06/03/18 10:00 06/21/18 10:56 Lovenox SUB-Q 40 mg QDAY@1000 CINDA Administration Folic Acid 1 mg 06/04/18 10:00 06/21/18 10:56 Folvite PO 1 mg QDAY CINDA Administration Haloperidol Lactate 5 mg 06/09/18 09:51 06/20/18 09:27 Haldol IM 5 mg Q6H PRN Administration Acute Psychosis Hydralazine HCl 10 mg 06/06/18 12:10 06/09/18 14:26 Apresoline IV 10 mg Q4H PRN Administration BP >160/100 Dopamine HCl/Dextrose 800 mg in 250 mls @ 5.334 mls/hr 06/20/18 12:18 06/20/18 13:35 Intropin Drip 800 Mg/D5w 250 Ml IV 06/22/18 11:10 3 mcg/kg/min TITR ONE 3.201 mls/hr Titration Protocol 5 MCG/KG/MIN Cefepime HCl 2 gm in 100 mls @ 200 mls/hr 06/20/18 22:00 06/21/18 10:56 Maxipime/Ns 2 Gm/100 Ml IV 200 mls/hr Q12HR CINDA Administration Protocol Vancomycin HCl 750 mg/ Sodium 265 mls @ 166.667 mls/hr 06/21/18 18:00 Chloride IV Q24H CINDA Magnesium Sulfate 4 gm in 100 mls @ 25 mls/hr 06/21/18 14:00 06/21/18 15:29 Magnesium Sulfate 4gm/100ml IV 06/21/18 17:59 25 mls/hr ONCE ONE Administration Potassium Phosphate 45 mmol/ 515 mls @ 85 mls/hr 06/21/18 14:00 06/21/18 15:31 Sodium Chloride IV 06/21/18 20:03 85 mls/hr ONCE ONE Administration Lorazepam 2 mg 06/03/18 14:00 Ativan PO Q1H PRN CIWA-Ar 8-15 Lorazepam 4 mg 06/03/18 14:00 06/20/18 11:01 Ativan IV 4 mg Q1H PRN Administration CIWA-Ar 16-25 Lorazepam 4 mg 06/03/18 14:00 Ativan IV Q15MIN PRN CIWA-Ar >25 Melatonin 5 mg 06/07/18 19:41 06/10/18 23:30 Melatonin PO 5 mg QHS PRN Administration Sleep Metoprolol Tartrate 5 mg 06/21/18 11:22 Lopressor IV Q6H PRN sustained HR > 130 Metoprolol Tartrate 12.5 mg 06/21/18 22:00 Lopressor PO BID CINDA Mirtazapine 15 mg 06/10/18 22:00 06/20/18 22:27 Remeron PO 15 mg QHS CINDA Administration Morphine Sulfate 2 mg 06/19/18 13:47 06/21/18 10:59 Morphine IV 2 mg Q3H PRN Administration Pain, Moderate (4-6) Multivitamins 5 ml 06/04/18 10:00 06/21/18 10:56 Centrum Liq PO 5 ml QDAY CINDA Administration Ondansetron HCl 4 mg 06/03/18 00:05 Zofran IV Q8H PRN Nausea And Vomiting Pantoprazole Sodium 40 mg 06/06/18 10:00 06/21/18 10:56 Protonix PO 40 mg DAILY CINDA Administration Simple Syrup 15 ml 06/20/18 14:55 Simple Syrup FEEDTUBE PRN PRN Hypoglycemia Simple Syrup 30 ml 06/20/18 14:55 Simple Syrup FEEDTUBE PRN PRN Hypoglycemia Sodium Bicarbonate 325 mg 06/20/18 14:55 Sodium Bicarbonate FEEDTUBE PRN PRN For Clogged Feeding Tube Sodium Chloride 10 ml 06/03/18 10:00 06/21/18 10:56 Sodium Chloride Flush Syringe 10 Ml IV 10 ml BID CINDA Administration Sodium Chloride 10 ml 06/03/18 00:05 Sodium Chloride Flush Syringe 10 Ml IV PRN PRN LINE FLUSH Sodium Chloride 2 gm 06/21/18 14:16 06/21/18 15:35 Sodium Chloride PO 2 gm TID CINDA Administration Tamsulosin HCl 0.4 mg 06/03/18 12:00 06/21/18 10:56 Flomax PO 0.4 mg QDAY CINDA Administration Thiamine HCl 100 mg 06/04/18 10:00 06/21/18 10:56 Vitamin B-1 PO 100 mg QDAY CINDA Administration
[2018-06-21 15:51] LABS: BUN/Creatinine Ratio 23; Blood Urea Nitrogen 9 mg/dL (9-20); Calcium 7.7 mg/dL (8.4-10.2); Hemolysis Index 20
--- NOTE | 2018-06-21 16:00 | Progress Note ---
Assessment and Plan - Patient Problems (1) Acute hyponatremia Current Visit: Yes Status: Acute Plan to address problem: Acute hyponatremia : Secondary to hypotonic fluids had recent hypERnatremia I reviewed urine electrolytes urine sodium 20 urine osmolarity 203 Since urine osmolality is greater than 100 is likely some component of inappropriate ADH production on admission Impaired freewater aCCESS therefore reCEnt hyponatremia Current continue maintenance free water replacement onLY Discontinue D5 water infusion. . (2) Hypertension Current Visit: Yes Status: Chronic Qualifiers: Hypertension type: essential hypertension Qualified Code(s): I10 - Essential (primary) hypertension Plan to address problem: HTN: UNControlled Monitor for alcohol withdrawal Continue current medications (3) Alcohol abuse Current Visit: Yes Status: Chronic Plan to address problem: Alcohol abuse monitor for alcohol withdrawal Continue thiamine (4) COPD exacerbation Current Visit: No Status: Acute Plan to address problem: COPD exacerbation currently on Solu-Medrol 3 times a day Also on broad-spectrum antibiotics Subjective Principal diagnosis: AE-COPD; Acute metabolic-toxic encephalopathy; hyponatremia Interval history: 72-year-old gentleman, COPD, hypertension, alcohol abuse found to have severe hyponatremia Patient seen today Has tremors has no edema Denies any abdominal pain or shortness of breath. [place] catheter in place D/C D5W Objective - Vital Signs Vital signs: Vital Signs - 12hr 06/21/18 06/21/18 06/21/18 04:00 04:10 04:32 Temperature 98.3 F 98.3 F Pulse Rate 72 61 Pulse Rate [ 63 From Monitor] Pulse Rate [ Throughout] Respiratory 11 L 21 Rate Respiratory Rate [ Throughout] Blood Pressure 91/49 91/49 O2 Sat by Pulse 98 97 Oximetry 06/21/18 06/21/18 06/21/18 05:22 08:00 08:13 Temperature Pulse Rate 55 L Pulse Rate [ From Monitor] Pulse Rate [ 90 116 H Throughout] Respiratory Rate Respiratory 18 16 Rate [ Throughout] Blood Pressure 122/67 O2 Sat by Pulse 98 Oximetry 06/21/18 06/21/18 06/21/18 12:00 14:53 14:54 Temperature 98.5 F Pulse Rate Pulse Rate [ From Monitor] Pulse Rate [ 112 H 115 H Throughout] Respiratory Rate Respiratory 18 18 Rate [ Throughout] Blood Pressure O2 Sat by Pulse Oximetry - General Appearance General appearance: chronically ill, frail EENT: ATNC, PERRL Neck: no JVD Respiratory: Present: Clear to Ascultation Cardiology: S1S2 Gastrointestinal: normal, normoactive bowel sounds Integumentary: no rash Neurologic: alert and oriented x3, CN 3-12 intact Psychiatric: mood/affect appropriate - Lab 06/21/18 11:55 06/21/18 14:49 Most recent lab results Calcium 7.7 mg/dL (8.4-10.2) L 06/21/18 14:49 Phosphorus 1.90 mg/dL (2.5-4.5) L 06/21/18 11:55 Magnesium 1.50 mg/dL (1.7-2.3) L 06/21/18 11:55 Urine Sodium 66 mmol/L 06/18/18 10:05 - Imaging Chest x-ray: image reviewed Medications & Allergies - Medications Allergies/Adverse Reactions: Allergies diphenhydramine HCl [From Benadryl] Allergy (Verified 09/24/14 11:56) Unknown HALLUCINATIONS Home Medications: Home Medications Medication Instructions Recorded Confirmed Last Taken Type Albuterol *Only Ed* [Proventil 2.5 mg IH Q4HRT PRN #1 nebu 10/03/14 06/03/18 Unknown Rx 0.5% NEBS] Folic Acid [Folvite] 1 mg PO QDAY #30 tablet 10/03/14 06/03/18 Unknown Rx Furosemide [Lasix TAB] 20 mg PO QDAY #30 tablet 10/03/14 06/03/18 Unknown Rx Metoprolol [Lopressor TAB] 12.5 mg PO BID #60 tablet 10/03/14 06/03/18 Unknown Rx Multivitamins Liq [Multiple 5 ml PO QDAY 30 Days oral.liqd 10/03/14 06/03/18 U nknown Rx Vitamin Liq (Theragran)] Thiamine [Vitamin B-1] 100 mg PO QDAY #30 tablet 10/03/14 06/03/18 Unknown Rx Active Medications: Generic Name Dose Route Start Last Admin Trade Name Freq PRN Reason Stop Dose Admin Acetaminophen 650 mg 06/03/18 00:05 06/21/18 03:23 Tylenol PO 650 mg Q4H PRN Administration Pain MILD(1-3)/Fever >100.5/CHANCE Acetaminophen 650 mg 06/16/18 15:03 06/19/18 07:[address] 650 mg Q4H PRN Administration Non Cardiac Pain or Temp>100.5 Albuterol 2.5 mg 06/03/18 13:11 06/03/18 15:01 Proventil IH 2.5 mg Q4HRT PRN Administration Shortness Of Breath Albuterol/Ipratropium 1 ampul 06/05/18 20:00 06/21/18 14:49 Duoneb *Not For Prn Use* IH 1 ampul TIDRT CINDA Administration Lipase/Protease/Amylase 1 each 06/20/18 14:55 Pancreaznupur Salomon 10,500 Unit FEEDTUBE PRN PRN For Clogged Feeding Tube Arformoterol Tartrate 15 mcg 06/03/18 20:00 06/21/18 08:10 Brovana Nebu IH 15 mcg Q12HRT CINDA Administration Budesonide 0.5 mg 06/03/18 20:00 06/21/18 08:10 Pulmicort IH 0.5 mg Q12HRT CINDA Administration Clonidine HCl 0.1 mg 06/11/18 22:00 06/20/18 22:01 Catapres PO Not Given HS CINDA Enoxaparin Sodium 40 mg 06/03/18 10:00 06/21/18 10:56 Lovenox SUB-Q 40 mg QDAY@1000 CINDA Administration Folic Acid 1 mg 06/04/18 10:00 06/21/18 10:56 Folvite PO 1 mg QDAY CINDA Administration Haloperidol Lactate 5 mg 06/09/18 09:51 06/20/18 09:27 Haldol IM 5 mg Q6H PRN Administration Acute Psychosis Hydralazine HCl 10 mg 06/06/18 12:10 06/09/18 14:26 Apresoline IV 10 mg Q4H PRN Administration BP >160/100 Dopamine HCl/Dextrose 800 mg in 250 mls @ 5.334 mls/hr 06/20/18 12:18 06/20/18 13:35 Intropin Drip 800 Mg/D5w 250 Ml IV 06/22/18 11:10 3 mcg/kg/min TITR ONE 3.201 mls/hr Titration Protocol 5 MCG/KG/MIN Cefepime HCl 2 gm in 100 mls @ 200 mls/hr 06/20/18 22:00 06/21/18 10:56 Maxipime/Ns 2 Gm/100 Ml IV 200 mls/hr Q12HR CINDA Administration Protocol Vancomycin HCl 750 mg/ Sodium 265 mls @ 166.667 mls/hr 06/21/18 18:00 Chloride IV Q24H CINDA Magnesium Sulfate 4 gm in 100 mls @ 25 mls/hr 06/21/18 14:00 06/21/18 15:29 Magnesium Sulfate 4gm/100ml IV 06/21/18 17:59 25 mls/hr ONCE ONE Administration Potassium Phosphate 45 mmol/ 515 mls @ 85 mls/hr 06/21/18 14:00 06/21/18 15:31 Sodium Chloride IV 06/21/18 20:03 85 mls/hr ONCE ONE Administration Lorazepam 2 mg 06/03/18 14:00 Ativan PO Q1H PRN CIWA-Ar 8-15 Lorazepam 4 mg 06/03/18 14:00 06/20/18 11:01 Ativan IV 4 mg Q1H PRN Administration CIWA-Ar 16-25 Lorazepam 4 mg 06/03/18 14:00 Ativan IV Q15MIN PRN CIWA-Ar >25 Melatonin 5 mg 06/07/18 19:41 06/10/18 23:30 Melatonin PO 5 mg QHS PRN Administration Sleep Metoprolol Tartrate 5 mg 06/21/18 11:22 Lopressor IV Q6H PRN sustained HR > 130 Metoprolol Tartrate 12.5 mg 06/21/18 22:00 Lopressor PO BID CINDA Mirtazapine 15 mg 06/10/18 22:00 06/20/18 22:27 Remeron PO 15 mg QHS CINDA Administration Morphine Sulfate 2 mg 06/19/18 13:47 06/21/18 10:59 Morphine IV 2 mg Q3H PRN Administration Pain, Moderate (4-6) Multivitamins 5 ml 06/04/18 10:00 06/21/18 10:56 Centrum Liq PO 5 ml QDAY CINDA Administration Ondansetron HCl 4 mg 06/03/18 00:05 Zofran IV Q8H PRN Nausea And Vomiting Pantoprazole Sodium 40 mg 06/06/18 10:00 06/21/18 10:56 Protonix PO 40 mg DAILY CINDA Administration Simple Syrup 15 ml 06/20/18 14:55 Simple Syrup FEEDTUBE PRN PRN Hypoglycemia Simple Syrup 30 ml 06/20/18 14:55 Simple Syrup FEEDTUBE PRN PRN Hypoglycemia Sodium Bicarbonate 325 mg 06/20/18 14:55 Sodium Bicarbonate FEEDTUBE PRN PRN For Clogged Feeding Tube Sodium Chloride 10 ml 06/03/18 10:00 06/21/18 10:56 Sodium Chloride Flush Syringe 10 Ml IV 10 ml BID CINDA Administration Sodium Chloride 10 ml 06/03/18 00:05 Sodium Chloride Flush Syringe 10 Ml IV PRN PRN LINE FLUSH Sodium Chloride 2 gm 06/21/18 14:16 06/21/18 15:35 Sodium Chloride PO 2 gm TID CINDA Administration Tamsulosin HCl 0.4 mg 06/03/18 12:00 06/21/18 10:56 Flomax PO 0.4 mg QDAY CINDA Administration Thiamine HCl 100 mg 06/04/18 10:00 06/21/18 10:56 Vitamin B-1 PO 100 mg QDAY CINDA Administration
[2018-06-21] MEDS ORDERED: POTASSIUM CHLORIDE FEEDTUBE NR (16:30)
[2018-06-21] MEDS ORDERED: NACL 0.9% 500 ML 500 ML IV ONE (17:55)
[2018-06-21] MEDS: VANCOMYCIN 750 MG in NACL 0.9% 250ML 250 ML IV SCH (20:05)
[2018-06-21] MEDS: REMERON PO SCH (21:25)
[2018-06-22] MEDS: CATAPRES PO SCH ×2 (00:02→22:35)
[2018-06-22] MEDS: LOPRESSOR PO SCH ×3 (00:04→22:32)
[2018-06-22] MEDS: TYLENOL PO PRN (04:37)
[2018-06-22 05:51] LABS: BUN/Creatinine Ratio 25; Blood Urea Nitrogen 10 mg/dL (9-20); Calcium 7.3 mg/dL (8.4-10.2); Hemolysis Index 10
[2018-06-22] MEDS: MORPHINE IV PRN (06:52)
[2018-06-22] MEDS: BROVANA NEBU IH SCH ×2 (08:14→22:38)
[2018-06-22] MEDS: PULMICORT IH SCH ×2 (08:14→22:38)
[2018-06-22] MEDS: DUONEB *Not for PRN Use IH SCH ×3 (08:14→22:38)
[2018-06-22] MEDS: MAXIPIME/NS 2 GM/100 ML 2 GM/100 ML BAG IV SCH ×2 (09:07→22:25)
[2018-06-22] MEDS: FOLVITE PO SCH (09:08)
[2018-06-22] MEDS: Centrum Liq PO SCH (09:08)
[2018-06-22] MEDS: FLOMAX PO SCH (09:08)
[2018-06-22] MEDS: LOVENOX SUB-Q SCH (09:09)
[2018-06-22] MEDS: PROTONIX PO SCH (09:09)
[2018-06-22] MEDS: SODIUM CHLORIDE FLUSH SYRINGE 10 ML IV SCH ×2 (09:09→22:27)
[2018-06-22] MEDS: VITAMIN B-1 PO SCH (09:09)
[2018-06-22] MEDS ORDERED: K-PHOS NEUTRAL PO SCH (10:00)
--- NOTE | 2018-06-22 10:25 | Progress Note ---
Assessment and Plan Cultures: Blood culture 06/13/2018 no growth Blood culture: 06/19/2018: no growth in 24 hours Urine culture grew multiple sp <10 Urine culture 06/16/2018 10-100K Enterococcus. Assessment: 72 y/o male with history of alcoholism,tobacco use, COPD and dementia admitted on 06/02/2018 due to AMS/confusion: 1) Sepsis: NOT Present on admission.Improved. No fevers. Etiology most likely UTI., +/- drug fever. CXR negative. Blood culture 06/13/2018 no growth. Repeat blood culture no growth thus far. Discontinue unasyn to r/o possible drug fever. Continue Vancomycin and Cefepime. 2) UTI: mild UTI present on admission, however worsening. UA showed wbc 24, large LE. Urine culture grew multiple sp <10. A zuniga was placed and then removed. Repeat UA showed wbc 89, large LE. Urine culture 06/16/2018 10-100K Enterococcus. Abdominal US shows no evidence of hydronephrosis. The urinary bladder appears distended, but smooth in contour. No evidence of gallstones or cholecystitis. 3) Acute on chronic encephalopathy: multifactorial- dementia, ETOH, hyponatremia and UTI. Brain MRI shows global cortical atrophy and otherwise negative. No evidence of acute/subacute infarct or hemorrhage. 4) Acute urinary retention: Improved. Zuniga catheter 5) Hyponatremia: Improved. 6) Severe malnutrition: failed swallow study, Feeding tube placed. 7) Acute Respiratory Failure: probably related to COPD exacerbation. On 4L/NC. Recommendations: continue vancomyin and cefepime -f/u blood cultures -f/u CT of abdomen - ordered venous ultrasound - cancelled [facility] M: [phone] O:[phone] Subjective Date of service: 06/22/18 Principal diagnosis: AE-COPD; Acute metabolic-toxic encephalopathy; hyponatremia Interval history: Patient seen and examined. Garbled speech, agitation continuing. No fevers. Objective - Exam Narrative Exam: General appearance: Awake. Alert Garbled speech. Acute distress observed. Cachexia. Eyes: anicteric sclerae, moist conjunctivae; no lid-lag; PERRLA HENT: Atraumatic; oropharynx limited. + NGT Neck: Trachea midline; supple, no thyromegaly or lymphadenopathy Lungs: CTA CV: tachycardic Abdomen: Soft, +suprapubic tenderness Extremities: No peripheral edema or extremity lymphadenopathy Skin: no rash or abscess Psych: agitated Neuro: alert agitated - Constitutional Vitals: Vital Signs Temp Pulse Resp BP Pulse Ox 98.2 F 74 16 147/59 97 06/22/18 08:00 06/22/18 09:08 06/22/18 08:24 06/22/18 09:08 06/22/18 08:13 Temperature -Last 24 Hours Temperature 98.2 F Temperature 98.3 F Temperature 98.6 F Temperature 99.2 F Temperature 99.2 F Temperature 99.1 F Temperature 99.1 F Temperature 98.7 F Temperature 98.5 F - Labs CBC & Chem 7: 06/21/18 11:55 06/22/18 05:11 Labs: Abnormal lab results 06/21/18 06/21/18 06/21/18 Range/Units 11:55 11:55 14:49 RBC 3.05 L (3.65-5.03) M/mm3 Hgb 10.0 L (11.8-15.2) gm/dl Hct 29.4 L (35.5-45.6) % MCV 97 H (84-94) fl MCH 33 H (28-32) pg RDW 12.6 L (13.2-15.2) % Plt Count 84 L (140-440) K/mm3 Lymph % (Auto) 10.7 L (13.4-35.0) % Lymph # 0.6 L (1.2-5.4) K/mm3 Seg Neutrophils % 83.4 H (40.0-70.0) % Sodium 130 L D 132 L (137-145) mmol/L Potassium 2.9 L* D 3.1 L (3.6-5.0) mmol/L Chloride 93.8 L 94.1 L (98-107) mmol/L Creatinine 0.4 L 0.4 L (0.8-1.5) mg/dL Glucose 107 H 115 H (75-100) mg/dL Calcium 7.4 L 7.7 L (8.4-10.2) mg/dL Phosphorus 1.90 L (2.5-4.5) mg/dL Magnesium 1.50 L (1.7-2.3) mg/dL 05/05/19 Range/Units 05:11 RBC (3.65-5.03) M/mm3 Hgb (11.8-15.2) gm/dl Hct (35.5-45.6) % MCV (84-94) fl MCH (28-32) pg RDW (13.2-15.2) % Plt Count (140-440) K/mm3 Lymph % (Auto) (13.4-35.0) % Lymph # (1.2-5.4) K/mm3 Seg Neutrophils % (40.0-70.0) % Sodium 135 L (137-145) mmol/L Potassium (3.6-5.0) mmol/L Chloride (98-107) mmol/L Creatinine 0.4 L (0.8-1.5) mg/dL Glucose 120 H (75-100) mg/dL Calcium 7.3 L (8.4-10.2) mg/dL Phosphorus 2.40 L D (2.5-4.5) mg/dL Magnesium (1.7-2.3) mg/dL
[2018-06-22] MEDS: ATIVAN PO PRN ×2 (11:53→23:03)
[2018-06-22] MEDS ORDERED: SODIUM PHOSPHATE 15 MMOL in NACL 0.9% 250ML 250 ML IV ONE (12:16)
--- NOTE | 2018-06-22 13:53 | Progress Note ---
Assessment and Plan - Patient Problems (1) Acute hyponatremia Current Visit: Yes Status: Acute Plan to address problem: Acute hyponatremia : Secondary to hypotonic fluids had recent hypERnatremia Na improved to 135. I reviewed urine electrolytes urine sodium 20 urine osmolarity 203 Since urine osmolality is greater than 100 is likely some component of inappropriate ADH production on admission Impaired freewater access therefore recent hyponatremia Current continue maintenance free water replacement only . (2) Hypertension Current Visit: Yes Status: Chronic Qualifiers: Hypertension type: essential hypertension Qualified Code(s): I10 - Essential (primary) hypertension Plan to address problem: HTN: UNControlled Monitor for alcohol withdrawal Continue current medications (3) Alcohol abuse Current Visit: Yes Status: Chronic Plan to address problem: Alcohol abuse monitor for alcohol withdrawal Continue thiamine (4) Hypophosphatemia Current Visit: Yes Status: Acute Plan to address problem: Hypophosphatemia Given the potassium is borderline Change to sodium phosphate instead of potassium phosphate Recheck in the a.m. Subjective Principal diagnosis: AE-COPD; Acute metabolic-toxic encephalopathy; hyponatremia Interval history: 72-year-old gentleman, COPD, hypertension, alcohol abuse found to have severe hyponatremia Patient seen today is quite agitated today has mittens in place [place] catheter in place Objective - Vital Signs Vital signs: Vital Signs - 12hr 06/22/18 06/22/18 06/22/18 01:51 02:01 02:11 Temperature Pulse Rate 62 67 68 Pulse Rate [ Apical] Pulse Rate [ From Monitor] Pulse Rate [ Throughout] Respiratory 14 16 16 Rate Respiratory Rate [ Throughout] Blood Pressure 99/52 99/52 85/58 O2 Sat by Pulse 100 100 Oximetry 06/22/18 06/22/18 06/22/18 02:21 02:31 02:41 Temperature Pulse Rate 62 63 59 L Pulse Rate [ Apical] Pulse Rate [ From Monitor] Pulse Rate [ Throughout] Respiratory 13 13 12 Rate Respiratory Rate [ Throughout] Blood Pressure 93/52 89/59 89/59 O2 Sat by Pulse 100 100 100 Oximetry 06/22/18 06/22/18 06/22/18 02:51 03:00 03:11 Temperature Pulse Rate 65 65 61 Pulse Rate [ Apical] Pulse Rate [ From Monitor] Pulse Rate [ Throughout] Respiratory 11 L 13 12 Rate Respiratory Rate [ Throughout] Blood Pressure 88/60 96/60 96/60 O2 Sat by Pulse 100 100 100 Oximetry 06/22/18 06/22/18 06/22/18 03:21 03:31 03:41 Temperature Pulse Rate 65 63 67 Pulse Rate [ Apical] Pulse Rate [ From Monitor] Pulse Rate [ Throughout] Respiratory 14 13 12 Rate Respiratory Rate [ Throughout] Blood Pressure 91/52 100/50 100/50 O2 Sat by Pulse 100 100 100 Oximetry 06/22/18 06/22/18 06/22/18 03:51 04:00 04:01 Temperature 98.3 F Pulse Rate 61 93 H Pulse Rate [ 73 Apical] Pulse Rate [ 73 From Monitor] Pulse Rate [ Throughout] Respiratory 13 21 22 Rate Respiratory Rate [ Throughout] Blood Pressure 88/56 88/56 O2 Sat by Pulse 100 99 100 Oximetry 06/22/18 06/22/18 06/22/18 04:11 04:21 04:31 Temperature Pulse Rate 67 72 61 Pulse Rate [ Apical] Pulse Rate [ From Monitor] Pulse Rate [ Throughout] Respiratory 16 16 14 Rate Respiratory Rate [ Throughout] Blood Pressure 88/56 75/53 75/53 O2 Sat by Pulse 100 100 Oximetry 06/22/18 06/22/18 06/22/18 04:41 04:51 05:00 Temperature Pulse Rate 75 77 Pulse Rate [ Apical] Pulse Rate [ From Monitor] Pulse Rate [ Throughout] Respiratory 18 18 Rate Respiratory Rate [ Throughout] Blood Pressure 239/180 239/180 131/70 O2 Sat by Pulse 100 100 100 Oximetry 06/22/18 06/22/18 06/22/18 05:11 05:21 05:31 Temperature Pulse Rate 84 86 68 Pulse Rate [ Apical] Pulse Rate [ From Monitor] Pulse Rate [ Throughout] Respiratory 17 18 14 Rate Respiratory Rate [ Throughout] Blood Pressure 131/70 141/63 112/54 O2 Sat by Pulse 100 96 97 Oximetry 06/22/18 06/22/18 06/22/18 05:41 05:51 06:00 Temperature Pulse Rate 68 70 94 H Pulse Rate [ Apical] Pulse Rate [ From Monitor] Pulse Rate [ Throughout] Respiratory 14 15 24 Rate Respiratory Rate [ Throughout] Blood Pressure 112/54 106/62 126/79 O2 Sat by Pulse 98 97 96 Oximetry 06/22/18 06/22/18 06/22/18 07:01 08:00 08:01 Temperature 98.2 F Pulse Rate 80 74 Pulse Rate [ 71 Apical] Pulse Rate [ 71 From Monitor] Pulse Rate [ Throughout] Respiratory 20 16 15 Rate Respiratory Rate [ Throughout] Blood Pressure 132/44 146/60 O2 Sat by Pulse 93 97 99 Oximetry 06/22/18 06/22/18 06/22/18 08:13 08:14 08:24 Temperature Pulse Rate Pulse Rate [ Apical] Pulse Rate [ From Monitor] Pulse Rate [ 78 69 Throughout] Respiratory Rate Respiratory 18 16 Rate [ Throughout] Blood Pressure O2 Sat by Pulse 97 Oximetry 06/22/18 06/22/18 06/22/18 09:00 09:08 10:00 Temperature Pulse Rate 63 74 62 Pulse Rate [ Apical] Pulse Rate [ From Monitor] Pulse Rate [ Throughout] Respiratory 12 14 Rate Respiratory Rate [ Throughout] Blood Pressure 147/59 147/59 125/59 O2 Sat by Pulse 99 99 Oximetry 06/22/18 06/22/18 06/22/18 11:01 12:00 12:01 Temperature 98.8 F Pulse Rate 87 102 H Pulse Rate [ 72 Apical] Pulse Rate [ 72 From Monitor] Pulse Rate [ Throughout] Respiratory 22 17 27 H Rate Respiratory Rate [ Throughout] Blood Pressure 153/81 148/98 O2 Sat by Pulse 99 98 100 Oximetry - General Appearance General appearance: cachectic, chronically ill, frail EENT: ATNC, mucous membranes dry Neck: no JVD Respiratory: Present: Decreased Breath Sounds, Increased Expir. Phase, Hx COPD Cardiology: regular, S1S2 Gastrointestinal: normal, normoactive bowel sounds Integumentary: no rash Neurologic: confused, disoriented Musculoskeletal: warmth Psychiatric: mood/affect appropriate - Lab 06/21/18 11:55 06/22/18 05:11 Most recent lab results Calcium 7.3 mg/dL (8.4-10.2) L 06/22/18 05:11 Phosphorus 2.40 mg/dL (2.5-4.5) L D 06/22/18 05:11 Magnesium 2.30 mg/dL (1.7-2.3) 06/22/18 05:11 Urine Sodium 66 mmol/L 06/18/18 10:05 - Imaging Chest x-ray: other (I reviewed CXR without any edema. ) Medications & Allergies - Medications Allergies/Adverse Reactions: Allergies diphenhydramine HCl [From Benadryl] Allergy (Verified 08/07/15 11:56) Unknown HALLUCINATIONS Home Medications: Home Medications Medication Instructions Recorded Confirmed Last Taken Type Albuterol *Only Ed* [Proventil 2.5 mg IH Q4HRT PRN #1 nebu 10/03/14 06/03/18 Unknown Rx 0.5% NEBS] Folic Acid [Folvite] 1 mg PO QDAY #30 tablet 10/03/14 06/03/18 Unknown Rx Furosemide [Lasix TAB] 20 mg PO QDAY #30 tablet 10/03/14 06/03/18 Unknown Rx Metoprolol [Lopressor TAB] 12.5 mg PO BID #60 tablet 10/03/14 06/03/18 Unknown Rx Multivitamins Liq [Multiple 5 ml PO QDAY 30 Days oral.liqd 10/03/14 06/03/18 Unknown Rx Vitamin Liq (Theragran)] Thiamine [Vitamin B-1] 100 mg PO QDAY #30 tablet 10/03/14 06/03/18 Unknown Rx Active Medications: Generic Name Dose Route Start Last Admin Trade Name Freq PRN Reason Stop Dose Admin Acetaminophen 650 mg 06/03/18 00:05 06/22/18 04:37 Tylenol PO 650 mg Q4H PRN Administration Pain MILD(1-3)/Fever >100.5/CHANCE Acetaminophen 650 mg 06/16/18 15:03 06/19/18 07:46 Tylenol HI 650 mg Q4H PRN Administration Non Cardiac Pain or Temp>100.5 Albuterol 2.5 mg 06/03/18 13:11 06/03/18 15:01 Proventil IH 2.5 mg Q4HRT PRN Administration Shortness Of Breath Albuterol/Ipratropium 1 ampul 06/05/18 20:00 06/22/18 08:14 Duoneb *Not For Prn Use* IH Not Given TIDRT CINDA Lipase/Protease/Amylase 1 each 06/20/18 14:55 Pancreradha Salomon 10,500 Unit FEEDTUBE PRN PRN For Clogged Feeding Tube Arformoterol Tartrate 15 mcg 06/03/18 20:00 06/22/18 08:14 Brovana Nebu IH 15 mcg Q12HRT CINDA Administration Budesonide 0.5 mg 06/03/18 20:00 06/22/18 08:14 Pulmicort IH 0.5 mg Q12HRT CINDA Administration Clonidine HCl 0.1 mg 06/11/18 22:00 06/22/18 00:02 Catapres PO Not Given HS [facility] Enoxaparin Sodium 40 mg 06/03/18 10:00 06/22/18 09:09 Lovenox SUB-Q 40 mg QDAY@1000 CINDA Administration Folic Acid 1 mg 06/04/18 10:00 06/22/18 09:08 Folvite PO 1 mg QDAY CINDA Administration Haloperidol Lactate 5 mg 06/09/18 09:51 06/20/18 09:27 Haldol IM 5 mg Q6H PRN Administration Acute Psychosis Hydralazine HCl 10 mg 06/06/18 12:10 06/09/18 14:26 Apresoline IV 10 mg Q4H PRN Administration BP >160/100 Cefepime HCl 2 gm in 100 mls @ 200 mls/hr 06/20/18 22:00 06/22/18 09:07 Maxipime/Ns 2 Gm/100 Ml IV 200 mls/hr Q12HR CINDA Administration Protocol Vancomycin HCl 750 mg/ Sodium 265 mls @ 166.667 mls/hr 06/21/18 18:00 06/21/18 20:05 Chloride IV 166.667 mls/hr Q24H CINDA Administration Sodium Phosphate 15 mmol/ 255 mls @ 125 mls/hr 06/22/18 12:16 06/22/18 12:36 Sodium Chloride IV 06/22/18 14:18 125 mls/hr ONCE ONE Administration Lorazepam 2 mg 06/03/18 14:00 06/22/18 11:53 Ativan PO 2 mg Q1H PRN Administration CIWA-Ar 8-15 Lorazepam 4 mg 06/03/18 14:00 06/20/18 11:01 Ativan IV 4 mg Q1H PRN Administration CIWA-Ar 16-25 Lorazepam 4 mg 06/03/18 14:00 Ativan IV Q15MIN PRN CIWA-Ar >25 Melatonin 5 mg 06/07/18 19:41 06/10/18 23:30 Melatonin PO 5 mg QHS PRN Administration Sleep Metoprolol Tartrate 5 mg 06/21/18 11:22 Lopressor IV Q6H PRN sustained HR > 130 Metoprolol Tartrate 12.5 mg 06/21/18 22:00 06/22/18 09:08 Lopressor PO 12.5 mg BID CINDA Administration Mirtazapine 15 mg 06/10/18 22:00 06/21/18 21:25 Remeron PO 15 mg QHS CINDA Administration Morphine Sulfate 2 mg 06/19/18 13:47 06/22/18 06:52 Morphine IV 2 mg Q3H PRN Administration Pain, Moderate (4-6) Multivitamins 5 ml 06/04/18 10:00 06/22/18 09:08 Centrum Liq PO 5 ml QDAY CINDA Administration Ondansetron HCl 4 mg 06/03/18 00:05 Zofran IV Q8H PRN Nausea And Vomiting Pantoprazole Sodium 40 mg 06/06/18 10:00 06/22/18 09:09 Protonix PO 40 mg DAILY CINDA Administration Simple Syrup 15 ml 06/20/18 14:55 Simple Syrup FEEDTUBE PRN PRN Hypoglycemia Simple Syrup 30 ml 06/20/18 14:55 Simple Syrup FEEDTUBE PRN PRN Hypoglycemia Sodium Bicarbonate 325 mg 06/20/18 14:55 Sodium Bicarbonate FEEDTUBE PRN PRN For Clogged Feeding Tube Sodium Chloride 10 ml 06/03/18 10:00 06/22/18 09:09 Sodium Chloride Flush Syringe 10 Ml IV 10 ml BID CINDA Administration Sodium Chloride 10 ml 06/03/18 00:05 Sodium Chloride Flush Syringe 10 Ml IV PRN PRN LINE FLUSH Tamsulosin HCl 0.4 mg 06/03/18 12:00 06/22/18 09:08 Flomax PO 0.4 mg QDAY CINDA Administration Thiamine HCl 100 mg 06/04/18 10:00 06/22/18 09:09 Vitamin B-1 PO 100 mg QDAY CINDA Administration
--- NOTE | 2018-06-22 15:21 | Progress Note ---
Assessment and Plan 1. Oropharyngeal dysphagia - getting tube feeds via Dobhoff. If mental status improves, can consider repeat swallow evaluation. If not, plan as below. - will do PEG when close to ready for discharge, or if keeps pulling Dobhoff out. Subjective Date of service: 06/22/18 Principal diagnosis: AE-COPD; Acute metabolic-toxic encephalopathy; hyponatremia Interval history: Pt better today. Less shaking of extremities. Emilia Dobhoff TF well. Still confused. Objective - Constitutional Vitals: Vital Signs - 12hr 06/22/18 06/22/18 06/22/18 03:21 03:31 03:41 Temperature Pulse Rate 65 63 67 Pulse Rate [ Apical] Pulse Rate [ From Monitor] Pulse Rate [ Throughout] Respiratory 14 13 12 Rate Respiratory Rate [ Throughout] Blood Pressure 91/52 100/50 100/50 O2 Sat by Pulse 100 100 100 Oximetry 06/22/18 06/22/18 06/22/18 03:51 04:00 04:01 Temperature 98.3 F Pulse Rate 61 93 H Pulse Rate [ 73 Apical] Pulse Rate [ 73 From Monitor] Pulse Rate [ Throughout] Respiratory 13 21 22 Rate Respiratory Rate [ Throughout] Blood Pressure 88/56 88/56 O2 Sat by Pulse 100 99 100 Oximetry 06/22/18 06/22/18 06/22/18 04:11 04:21 04:31 Temperature Pulse Rate 67 72 61 Pulse Rate [ Apical] Pulse Rate [ From Monitor] Pulse Rate [ Throughout] Respiratory 16 16 14 Rate Respiratory Rate [ Throughout] Blood Pressure 88/56 75/53 75/53 O2 Sat by Pulse 100 100 Oximetry 06/22/18 06/22/18 06/22/18 04:41 04:51 05:00 Temperature Pulse Rate 75 77 Pulse Rate [ Apical] Pulse Rate [ From Monitor] Pulse Rate [ Throughout] Respiratory 18 18 Rate Respiratory Rate [ Throughout] Blood Pressure 239/180 239/180 131/70 O2 Sat by Pulse 100 100 100 Oximetry 06/22/18 06/22/18 06/22/18 05:11 05:21 05:31 Temperature Pulse Rate 84 86 68 Pulse Rate [ Apical] Pulse Rate [ From Monitor] Pulse Rate [ Throughout] Respiratory 17 18 14 Rate Respiratory Rate [ Throughout] Blood Pressure 131/70 141/63 112/54 O2 Sat by Pulse 100 96 97 Oximetry 05/05/19 05/05/19 05/05/19 05:41 05:51 06:00 Temperature Pulse Rate 68 70 94 H Pulse Rate [ Apical] Pulse Rate [ From Monitor] Pulse Rate [ Throughout] Respiratory 14 15 24 Rate Respiratory Rate [ Throughout] Blood Pressure 112/54 106/62 126/79 O2 Sat by Pulse 98 97 96 Oximetry 06/22/18 06/22/18 06/22/18 07:01 08:00 08:01 Temperature 98.2 F Pulse Rate 80 74 Pulse Rate [ 71 Apical] Pulse Rate [ 71 From Monitor] Pulse Rate [ Throughout] Respiratory 20 16 15 Rate Respiratory Rate [ Throughout] Blood Pressure 132/44 146/60 O2 Sat by Pulse 93 97 99 Oximetry 06/22/18 06/22/18 06/22/18 08:13 08:14 08:24 Temperature Pulse Rate Pulse Rate [ Apical] Pulse Rate [ From Monitor] Pulse Rate [ 78 69 Throughout] Respiratory Rate Respiratory 18 16 Rate [ Throughout] Blood Pressure O2 Sat by Pulse 97 Oximetry 06/22/18 06/22/18 06/22/18 09:00 09:08 10:00 Temperature Pulse Rate 63 74 62 Pulse Rate [ Apical] Pulse Rate [ From Monitor] Pulse Rate [ Throughout] Respiratory 12 14 Rate Respiratory Rate [ Throughout] Blood Pressure 147/59 147/59 125/59 O2 Sat by Pulse 99 99 Oximetry 06/22/18 06/22/18 06/22/18 11:01 12:00 12:01 Temperature 98.8 F Pulse Rate 87 102 H Pulse Rate [ 72 Apical] Pulse Rate [ 72 From Monitor] Pulse Rate [ Throughout] Respiratory 22 17 27 H Rate Respiratory Rate [ Throughout] Blood Pressure 153/81 148/98 O2 Sat by Pulse 99 98 100 Oximetry 06/22/18 06/22/18 14:36 14:48 Temperature Pulse Rate Pulse Rate [ Apical] Pulse Rate [ From Monitor] Pulse Rate [ 76 70 Throughout] Respiratory Rate Respiratory 16 18 Rate [ Throughout] Blood Pressure O2 Sat by Pulse Oximetry General appearance: Present: no acute distress, cachectic - EENT Eyes: PERRL, EOM intact ENT: hearing intact - Respiratory Respiratory effort: normal - Cardiovascular Rhythm: regular Heart Sounds: Present: S1 & S2 - Gastrointestinal General gastrointestinal: Present: soft, non-tender - Labs CBC & Chem 7: 06/21/18 11:55 06/22/18 05:11 Labs: Abnormal lab results 06/21/18 06/22/18 Range/Units 14:49 05:11 Sodium 132 L 135 L (137-145) mmol/L Potassium 3.1 L (3.6-5.0) mmol/L Chloride 94.1 L (98-107) mmol/L Creatinine 0.4 L 0.4 L (0.8-1.5) mg/dL Glucose 115 H 120 H (75-100) mg/dL Calcium 7.7 L 7.3 L (8.4-10.2) mg/dL Phosphorus 2.40 L D (2.5-4.5) mg/dL Medications & Allergies - Medications Allergies/Adverse Reactions: Allergies diphenhydramine HCl [From Benadryl] Allergy (Verified 09/24/14 11:56) Unknown HALLUCINATIONS Home Medications: Home Medications Medication Instructions Recorded Confirmed Last Taken Type Albuterol *Only Ed* [Proventil 2.5 mg IH Q4HRT PRN #1 nebu 10/03/14 06/03/18 Unknown Rx 0.5% NEBS] Folic Acid [Folvite] 1 mg PO QDAY #30 tablet 10/03/14 06/03/18 Unknown Rx Furosemide [Lasix TAB] 20 mg PO QDAY #30 tablet 10/03/14 06/03/18 Unknown Rx Metoprolol [Lopressor TAB] 12.5 mg PO BID #60 tablet 10/03/14 06/03/18 Unknown Rx Multivitamins Liq [Multiple 5 ml PO QDAY 30 Days oral.liqd 10/03/14 06/03/18 Unknown Rx Vitamin Liq (Theragran)] Thiamine [Vitamin B-1] 100 mg PO QDAY #30 tablet 10/03/14 06/03/18 Unknown Rx Active Medications: Generic Name Dose Route Start Last Admin Trade Name Freq PRN Reason Stop Dose Admin Acetaminophen 650 mg 06/03/18 00:05 06/22/18 04:37 Tylenol PO 650 mg Q4H PRN Administration Pain MILD(1-3)/Fever >100.5/CHANCE Acetaminophen 650 mg 06/16/18 15:03 06/19/18 07:46 Tylenol VT 650 mg Q4H PRN Administration Non Cardiac Pain or Temp>100.5 Albuterol 2.5 mg 06/03/18 13:11 06/03/18 15:01 Proventil IH 2.5 mg Q4HRT PRN Administration Shortness Of Breath Albuterol/Ipratropium 1 ampul 06/05/18 20:00 06/22/18 14:36 Duoneb *Not For Prn Use* IH 1 ampul TIDRT CINDA Administration Lipase/Protease/Amylase 1 each 06/20/18 14:55 Pancreradha Salomon 10,500 Unit FEEDTUBE PRN PRN For Clogged Feeding Tube Arformoterol Tartrate 15 mcg 06/03/18 20:00 06/22/18 08:14 Brovana Nebu IH 15 mcg Q12HRT CINDA Administration Budesonide 0.5 mg 06/03/18 20:00 06/22/18 08:14 Pulmicort IH 0.5 mg Q12HRT CINDA Administration Clonidine HCl 0.1 mg 06/11/18 22:00 06/22/18 00:02 Catapres PO Not Given [facility] Enoxaparin Sodium 40 mg 06/03/18 10:00 06/22/18 09:09 Lovenox SUB-Q 40 mg QDAY@1000 CINDA Administration Folic Acid 1 mg 06/04/18 10:00 06/22/18 09:08 Folvite PO 1 mg QDAY CINDA Administration Haloperidol Lactate 5 mg 06/09/18 09:51 06/20/18 09:27 Haldol IM 5 mg Q6H PRN Administration Acute Psychosis Hydralazine HCl 10 mg 06/06/18 12:10 06/09/18 14:26 Apresoline IV 10 mg Q4H PRN Administration BP >160/100 Cefepime HCl 2 gm in 100 mls @ 200 mls/hr 06/20/18 22:00 06/22/18 09:07 Maxipime/Ns 2 Gm/100 Ml IV 200 mls/hr Q12HR CINDA Administration Protocol Vancomycin HCl 750 mg/ Sodium 265 mls @ 166.667 mls/hr 06/21/18 18:00 06/21/18 20:05 Chloride IV 166.667 mls/hr Q24H CINDA Administration Lorazepam 2 mg 06/03/18 14:00 06/22/18 11:53 Ativan PO 2 mg Q1H PRN Administration CIWA-Ar 8-15 Lorazepam 4 mg 06/03/18 14:00 06/20/18 11:01 Ativan IV 4 mg Q1H PRN Administration CIWA-Ar 16-25 Lorazepam 4 mg 06/03/18 14:00 Ativan IV Q15MIN PRN CIWA-Ar >25 Melatonin 5 mg 06/07/18 19:41 06/10/18 23:30 Melatonin PO 5 mg QHS PRN Administration Sleep Metoprolol Tartrate 5 mg 06/21/18 11:22 Lopressor IV Q6H PRN sustained HR > 130 Metoprolol Tartrate 12.5 mg 06/21/18 22:00 06/22/18 09:08 Lopressor PO 12.5 mg BID CINDA Administration Mirtazapine 15 mg 06/10/18 22:00 06/21/18 21:25 Remeron PO 15 mg QHS CINDA Administration Morphine Sulfate 2 mg 06/19/18 13:47 06/22/18 06:52 Morphine IV 2 mg Q3H PRN Administration Pain, Moderate (4-6) Multivitamins 5 ml 06/04/18 10:00 06/22/18 09:08 Centrum Liq PO 5 ml QDAY CINDA Administration Ondansetron HCl 4 mg 06/03/18 00:05 Zofran IV Q8H PRN Nausea And Vomiting Pantoprazole Sodium 40 mg 06/06/18 10:00 06/22/18 09:09 Protonix PO 40 mg DAILY CINDA Administration Simple Syrup 15 ml 06/20/18 14:55 Simple Syrup FEEDTUBE PRN PRN Hypoglycemia Simple Syrup 30 ml 06/20/18 14:55 Simple Syrup FEEDTUBE PRN PRN Hypoglycemia Sodium Bicarbonate 325 mg 06/20/18 14:55 Sodium Bicarbonate FEEDTUBE PRN PRN For Clogged Feeding Tube Sodium Chloride 10 ml 06/03/18 10:00 06/22/18 09:09 Sodium Chloride Flush Syringe 10 Ml IV 10 ml BID CINDA Administration Sodium Chloride 10 ml 06/03/18 00:05 Sodium Chloride Flush Syringe 10 Ml IV PRN PRN LINE FLUSH Tamsulosin HCl 0.4 mg 06/03/18 12:00 06/22/18 09:08 Flomax PO 0.4 mg QDAY CINDA Administration Thiamine HCl 100 mg 06/04/18 10:00 06/22/18 09:09 Vitamin B-1 PO 100 mg QDAY CINDA Administration
--- NOTE | 2018-06-22 15:35 | Progress Note ---
Assessment and Plan -Acute COPD exacerbation -Hypernatremia, improved. Initially had hyponatremia -Acute Encephalopathy( metabolic, toxic) -EtOH Abuse/Alcohol dependence and withdrawal -Acute hypoxic respiratory failure with COPD exacerbation -Tobacco use disorder -Moderate malnutrition, poa -Pyrexia 06/12/18: - Bronchodilators - Steroid taper - Supplemental oxygen to keep O2 sats 88-90% - Continue Lovenox, while monitoring platelets - Completed antibiotics for AE-COPD, monitor off antibiotics -Aspiration precautions -Enteric nutritional support, PEG prior to discharge -ABG and CXR prn -PT/OT/Mobility as tolerated - continue CIWA protocol -Maintenance of sleep-wake cycle to decrease delirium -Scanlon culture and get CXR is any further fevers Continue to monitor closely Subjective Date of service: 06/22/18 Principal diagnosis: AE-COPD; Acute metabolic-toxic encephalopathy; hyponatremia Interval history: Patient is seen today for: AE-COPD, acute metabolic-toxic encephalopathy, hyponatremia Seen and examined at bedside; 24hour events reviewed; nursing and respiratory care staff consulted; no adverse overnight events reported to me; Remains confused, tremulous in restraints. Continues to require supplemental oxygen therapy Sodium improving. On going dislodgment of small bowel feeding tube, plan is for PEG placement, when he is close to discharge Objective Vital Signs - 12hr 06/22/18 06/22/18 06/22/18 03:41 03:51 04:00 Temperature 98.3 F Pulse Rate 67 61 Pulse Rate [ 73 Apical] Pulse Rate [ 73 From Monitor] Pulse Rate [ Throughout] Respiratory 12 13 21 Rate Respiratory Rate [ Throughout] Blood Pressure 100/50 88/56 O2 Sat by Pulse 100 100 99 Oximetry 06/22/18 06/22/18 06/22/18 04:01 04:11 04:21 Temperature Pulse Rate 93 H 67 72 Pulse Rate [ Apical] Pulse Rate [ From Monitor] Pulse Rate [ Throughout] Respiratory 22 16 16 Rate Respiratory Rate [ Throughout] Blood Pressure 88/56 88/56 75/53 O2 Sat by Pulse 100 100 100 Oximetry 06/22/18 06/22/18 06/22/18 04:31 04:41 04:51 Temperature Pulse Rate 61 75 Pulse Rate [ Apical] Pulse Rate [ From Monitor] Pulse Rate [ Throughout] Respiratory 14 18 Rate Respiratory Rate [ Throughout] Blood Pressure 75/53 239/180 239/180 O2 Sat by Pulse 100 100 Oximetry 06/22/18 06/22/18 06/22/18 05:00 05:11 05:21 Temperature Pulse Rate 77 84 86 Pulse Rate [ Apical] Pulse Rate [ From Monitor] Pulse Rate [ Throughout] Respiratory 18 17 18 Rate Respiratory Rate [ Throughout] Blood Pressure 131/70 131/70 141/63 O2 Sat by Pulse 100 100 96 Oximetry 06/22/18 06/22/18 06/22/18 05:31 05:41 05:51 Temperature Pulse Rate 68 68 70 Pulse Rate [ Apical] Pulse Rate [ From Monitor] Pulse Rate [ Throughout] Respiratory 14 14 15 Rate Respiratory Rate [ Throughout] Blood Pressure 112/54 112/54 106/62 O2 Sat by Pulse 97 98 97 Oximetry 06/22/18 06/22/18 06/22/18 06:00 07:01 08:00 Temperature 98.2 F Pulse Rate 94 H 80 Pulse Rate [ 71 Apical] Pulse Rate [ 71 From Monitor] Pulse Rate [ Throughout] Respiratory 24 20 16 Rate Respiratory Rate [ Throughout] Blood Pressure 126/79 132/44 O2 Sat by Pulse 96 93 97 Oximetry 06/22/18 06/22/18 06/22/18 08:01 08:13 08:14 Temperature Pulse Rate 74 Pulse Rate [ Apical] Pulse Rate [ From Monitor] Pulse Rate [ 78 Throughout] Respiratory 15 Rate Respiratory 18 Rate [ Throughout] Blood Pressure 146/60 O2 Sat by Pulse 99 97 Oximetry 06/22/18 06/22/18 06/22/18 08:24 09:00 09:08 Temperature Pulse Rate 63 74 Pulse Rate [ Apical] Pulse Rate [ From Monitor] Pulse Rate [ 69 Throughout] Respiratory 12 Rate Respiratory 16 Rate [ Throughout] Blood Pressure 147/59 147/59 O2 Sat by Pulse 99 Oximetry 06/22/18 06/22/18 06/22/18 10:00 11:01 12:00 Temperature 98.8 F Pulse Rate 62 87 Pulse Rate [ 72 Apical] Pulse Rate [ 72 From Monitor] Pulse Rate [ Throughout] Respiratory 14 22 17 Rate Respiratory Rate [ Throughout] Blood Pressure 125/59 153/81 O2 Sat by Pulse 99 99 98 Oximetry 06/22/18 06/22/18 06/22/18 12:01 13:00 14:00 Temperature Pulse Rate 102 H 82 69 Pulse Rate [ Apical] Pulse Rate [ From Monitor] Pulse Rate [ Throughout] Respiratory 27 H 20 18 Rate Respiratory Rate [ Throughout] Blood Pressure 148/98 109/57 118/61 O2 Sat by Pulse 100 95 98 Oximetry 06/22/18 06/22/18 06/22/18 14:36 14:48 15:00 Temperature Pulse Rate 71 Pulse Rate [ Apical] Pulse Rate [ From Monitor] Pulse Rate [ 76 70 Throughout] Respiratory 19 Rate Respiratory 16 18 Rate [ Throughout] Blood Pressure 125/61 O2 Sat by Pulse 99 Oximetry Constitutional: appears uncomfortable, other (elderly and chronically ill looking CM , agitated, tremulous) Eyes: non-icteric ENT: oropharynx moist Neck: supple, no JVD, other (no thyromegaly, small bowel feeding tube in nares) Effort: mildly labored Ascultation: Bilateral: diminished breath sounds, other (prolonged expiratory phase) Percussion: Bilateral: not dull Cardiovascular: regular rate and rhythm, other (S1,S2, no murmurs) Gastrointestinal: normoactive bowel sounds, soft, non-tender, non-distended Integumentary: normal Extremities: no cyanosis, no edema, pink and warm, pulses normal Neurologic: pupils equal and round, unable to assess Psychiatric: other (delirious) CBC and BMP: 06/21/18 11:55 06/22/18 05:11 ABG, PT/INR, D-dimer: ABG POC ABG pH 7.381 (7.35-7.45) 06/20/18 11:51 POC ABG pCO2 44.7 (35-45) 06/20/18 11:51 POC ABG pO2 86 (80-105) 06/20/18 11:51 POC ABG HCO3 26.5 (22-26 mml/L) 06/20/18 11:51 POC ABG Total CO2 28 (23-27mmol/L) 06/20/18 11:51 POC ABG O2 Sat 96 06/20/18 11:51 PT/INR, D-dimer PT 16.6 Sec. (12.2-14.9) H 06/18/18 05:06 INR 1.26 (0.87-1.13) H 06/18/18 05:06 Abnormal lab findings: Abnormal Labs 06/02/18 06/02/18 06/02/18 21:25 21:25 22:03 WBC RBC Hgb Hct MCV MCH 33 H MCHC 35 H RDW 12.8 L Plt Count Lymph % (Auto) Lymph # Seg Neutrophils % Seg Neuts % (Manual) 80.0 H Lymphocytes % (Manual) Seg Neutrophils # Lymphocytes # (Manual) 0.8 L PT INR Sodium 109 L* Potassium Chloride 71.3 L Carbon Dioxide BUN 6 L Creatinine 0.5 L Glucose Calcium Phosphorus Magnesium Ammonia Total Creatine Kinase 420 H Total Protein Albumin Urine WBC (Auto) 24.0 H 06/03/18 06/03/18 06/03/18 00:15 06:27 09:42 WBC RBC Hgb Hct MCV MCH MCHC RDW Plt Count Lymph % (Auto) Lymph # Seg Neutrophils % Seg Neuts % (Manual) Lymphocytes % (Manual) Seg Neutrophils # Lymphocytes # (Manual) PT INR Sodium 113 L* 118 L* 116 L* Potassium 3.5 L 3.5 L Chloride 77.2 L 79.1 L 78.2 L Carbon Dioxide BUN 5 L 4 L 4 L Creatinine 0.4 L 0.5 L 0.4 L Glucose Calcium 8.2 L 7.9 L 8.1 L Phosphorus Magnesium Ammonia Total Creatine Kinase Total Protein Albumin Urine WBC (Auto) 06/03/18 06/03/18 06/03/18 14:41 14:41 20:45 WBC RBC Hgb Hct MCV MCH MCHC RDW Plt Count Lymph % (Auto) Lymph # Seg Neutrophils % Seg Neuts % (Manual) Lymphocytes % (Manual) Seg Neutrophils # Lymphocytes # (Manual) PT INR Sodium 114 L* 118 L* Potassium 3.1 L Chloride 76.3 L 79.7 L Carbon Dioxide BUN 4 L 3 L Creatinine 0.5 L 0.4 L Glucose Calcium 8.1 L 8.3 L Phosphorus Magnesium Ammonia 23.0 L Total Creatine Kinase Total Protein Albumin Urine WBC (Auto) 06/04/18 06/04/18 06/04/18 04:39 09:47 09:47 WBC RBC Hgb Hct MCV 95 H MCH 33 H MCHC RDW 12.8 L Plt Count Lymph % (Auto) Lymph # Seg Neutrophils % Seg Neuts % (Manual) 92.0 H Lymphocytes % (Manual) 5.0 L Seg Neutrophils # Lymphocytes # (Manual) 0.3 L PT INR Sodium 123 L Potassium Chloride 85.2 L Carbon Dioxide BUN 5 L Creatinine 0.5 L Glucose 129 H Calcium 8.3 L Phosphorus Magnesium Ammonia Total Creatine Kinase Total Protein 5.5 L Albumin 3.1 L Urine WBC (Auto) 06/05/18 06/06/18 06/07/18 04:29 05:25 07:11 WBC RBC Hgb Hct MCV MCH MCHC RDW Plt Count Lymph % (Auto) Lymph # Seg Neutrophils % Seg Neuts % (Manual) Lymphocytes % (Manual) Seg Neutrophils # Lymphocytes # (Manual) PT INR Sodium 126 L 133 L D 126 L D Potassium Chloride 90.4 L 95.1 L 86.1 L Carbon Dioxide BUN 8 L Creatinine 0.5 L 0.5 L 0.5 L Glucose 170 H 123 H 129 H Calcium 8.2 L 8.1 L Phosphorus Magnesium Ammonia Total Creatine Kinase Total Protein Albumin Urine WBC (Auto) 06/08/18 06/09/18 06/10/18 11:03 06:13 07:14 WBC RBC Hgb Hct MCV MCH MCHC RDW Plt Count Lymph % (Auto) Lymph # Seg Neutrophils % Seg Neuts % (Manual) Lymphocytes % (Manual) Seg Neutrophils # Lymphocytes # (Manual) PT INR Sodium 134 L D Potassium Chloride 92.2 L Carbon Dioxide 31 H BUN Creatinine 0.5 L 0.6 L 0.5 L Glucose 106 H 130 H 126 H Calcium Phosphorus Magnesium Ammonia Total Creatine Kinase Total Protein Albumin Urine WBC (Auto) 06/11/18 06/12/18 06/13/18 10:23 04:58 05:33 WBC RBC Hgb Hct MCV MCH MCHC RDW Plt Count Lymph % (Auto) Lymph # Seg Neutrophils % Seg Neuts % (Manual) Lymphocytes % (Manual) Seg Neutrophils # Lymphocytes # (Manual) PT INR Sodium 136 L 134 L Potassium 3.5 L Chloride Carbon Dioxide BUN 27 H Creatinine 0.4 L 0.5 L 0.6 L Glucose 155 H 141 H 112 H Calcium 8.1 L 7.9 L 8.3 L Phosphorus Magnesium Ammonia Total Creatine Kinase Total Protein Albumin Urine WBC (Auto) 06/13/18 06/14/18 06/14/18 05:33 05:14 05:14 WBC 12.6 H 12.3 H RBC Hgb Hct MCV 97 H 98 H MCH 33 H MCHC RDW Plt Count 133 L Lymph % (Auto) Lymph # Seg Neutrophils % Seg Neuts % (Manual) Lymphocytes % (Manual) Seg Neutrophils # Lymphocytes # (Manual) PT INR Sodium 146 H Potassium Chloride 107.2 H Carbon Dioxide BUN 31 H Creatinine 0.6 L Glucose 113 H Calcium Phosphorus Magnesium Ammonia Total Creatine Kinase Total Protein Albumin Urine WBC (Auto) 06/15/18 06/15/18 06/16/18 04:47 04:47 03:20 WBC 16.7 H RBC Hgb Hct MCV 97 H MCH MCHC RDW Plt Count 138 L Lymph % (Auto) Lymph # Seg Neutrophils % Seg Neuts % (Manual) Lymphocytes % (Manual) Seg Neutrophils # Lymphocytes # (Manual) PT INR Sodium 146 H Potassium Chloride 109.2 H Carbon Dioxide BUN 32 H Creatinine 0.6 L Glucose 124 H Calcium 7.8 L Phosphorus Magnesium Ammonia Total Creatine Kinase Total Protein Albumin Urine WBC (Auto) 89.0 H 06/16/18 06/17/18 06/17/18 05:22 08:21 08:21 WBC 11.4 H RBC Hgb Hct MCV 98 H MCH 33 H MCHC RDW Plt Count 107 L Lymph % (Auto) Lymph # Seg Neutrophils % Seg Neuts % (Manual) Lymphocytes % (Manual) Seg Neutrophils # Lymphocytes # (Manual) PT INR Sodium 146 H 146 H Potassium Chloride 109.0 H 109.2 H Carbon Dioxide BUN 39 H 47 H Creatinine Glucose 120 H 109 H Calcium 7.9 L 8.3 L Phosphorus Magnesium 2.60 H Ammonia Total Creatine Kinase Total Protein 5.2 L Albumin 2.9 L Urine WBC (Auto) 06/18/18 06/19/18 06/19/18 05:06 09:10 09:10 WBC RBC 3.50 L Hgb 11.7 L Hct 34.4 L MCV 98 H MCH 33 H MCHC RDW Plt Count 98 L Lymph % (Auto) 11.8 L Lymph # Seg Neutrophils % 82.4 H Seg Neuts % (Manual) Lymphocytes % (Manual) Seg Neutrophils # 8.8 H Lymphocytes # (Manual) PT 16.6 H INR 1.26 H Sodium 146 H Potassium Chloride 107.3 H Carbon Dioxide BUN 29 H Creatinine 0.7 L Glucose 74 L Calcium 7.6 L Phosphorus Magnesium Ammonia Total Creatine Kinase Total Protein Albumin Urine WBC (Auto) 06/21/18 06/21/18 06/21/18 11:55 11:55 14:49 WBC RBC 3.05 L Hgb 10.0 L Hct 29.4 L MCV 97 H MCH 33 H MCHC RDW 12.6 L Plt Count 84 L Lymph % (Auto) 10.7 L Lymph # 0.6 L Seg Neutrophils % 83.4 H Seg Neuts % (Manual) Lymphocytes % (Manual) Seg Neutrophils # Lymphocytes # (Manual) PT INR Sodium 130 L D 132 L Potassium 2.9 L* D 3.1 L Chloride 93.8 L 94.1 L Carbon Dioxide BUN Creatinine 0.4 L 0.4 L Glucose 107 H 115 H Calcium 7.4 L 7.7 L Phosphorus 1.90 L Magnesium 1.50 L Ammonia Total Creatine Kinase Total Protein Albumin Urine WBC (Auto) 06/22/18 05:11 WBC RBC Hgb Hct MCV MCH MCHC RDW Plt Count Lymph % (Auto) Lymph # Seg Neutrophils % Seg Neuts % (Manual) Lymphocytes % (Manual) Seg Neutrophils # Lymphocytes # (Manual) PT INR Sodium 135 L Potassium Chloride Carbon Dioxide BUN Creatinine 0.4 L Glucose 120 H Calcium 7.3 L Phosphorus 2.40 L D Magnesium Ammonia Total Creatine Kinase Total Protein Albumin Urine WBC (Auto) Allied health notes reviewed: nursing
--- NOTE | 2018-06-22 15:49 | Progress Note ---
Assessment and Plan Assessment and plan: 72-year-old man with history of alcoholism and likely dementia which has not been diagnosed with suspected by family. The patient's and he was dependent on her past the week 2 weeks prior. He was home by himself, is apparently drinking heavily not eating and not. He had been confused per his son and neighbors. His son and asked him to go to the ER , then he called the EMS. The patient was found to have a very low sodium, agitated and confused. CT head no acute findings Chest x-ray no acute findings -The patient is on [facility] protocol for alcohol withdrawal. He is now out of the window for alcohol withdrawal -He was counseled on tobacco cessation, time spent greater than 10 minutes -The patient was initially very hyponatremic when he came to the hospital, he r eceived saline IV, salt tabs and his potassium was replaced. -The patient developed urinary retention, therefore [place] catheter placed -He received a course of steroids and nebulizers for COPD exacerbation, now improved. -he had very poor by mouth intake, he was only taking sips of drinks some barely consuming any food. 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 -cont abx for UTI- e fecalis, for total 5 days ending 06-20-18 -Patient now developed some hypernatremia from free water deficit, continue D5 water, plan for PEG tube, son has given consent, planned for Saturday -06/20; was agitated and in rapid afib, gave IV metoprolol, placed NGT to cont meds, received ativan per [facility] protocol then became hypotensive, IVF and pressors, transfer to [facility] -06/21; improving, weaning off pressors -dc to SNF with hospice when improved Diagnoses Afib with RVR, PAF hypotension, likely 2/2 ativan administration hypercoaguable state Alcohol dependence and withdrawal Acute metabolic encephalopathy Severe hyponatremia, now resolved mild hypernatremia- d5w drip Hypercholesteremia Beer potomania severe malnutrition COPD exacerbation Tobacco abuse, current every day smoker Acute hypoxic respiratory failure Dementia severe malnutrition Sepsis UTI -Urinary retention/obstructive uropathy - CCT 33 minutes History Interval history: he was less agitated today, dopamine ggt being weaned off tachycardia improved per RN, tube feeding is going Review of systems Constitutional: No fevers, no malaise, no joint pains CVS: No chest pain, no orthopnea, no dyspnea on exertion, no pedal edema GI: No abdominal pain, no diarrhea, no vomiting, no constipation has not been eating Respiratory: no sob or cough Hospitalist Physical - Physical exam Narrative exam: General.: , nontoxic HEENT: Moist mucous membranes, extraocular muscles intact, no lymphadenopathy Neck: supple Cardiac: S1-S2 heard Lungs: CTA Abdomen: soft , nontender, nondistended, bowel sounds positive Extremities: no edema clubbing or cyanosis Skin: no rash or lesions Neurologic: Confused, moves all extremities Psych: calm, - Constitutional Vitals: Temp Pulse Resp BP Pulse Ox 98.8 F 71 19 125/61 99 06/22/18 12:00 06/22/18 15:00 06/22/18 15:00 06/22/18 15:00 06/22/18 15:00 General appearance: Present: no acute distress, cachectic Results - Labs CBC & Chem 7: 06/24/18 00:39 06/24/18 05:00 Labs: Laboratory Last Values WBC 5.7 K/mm3 (4.5-11.0) 06/21/18 11:55 RBC 3.05 M/mm3 (3.65-5.03) L 06/21/18 11:55 Hgb 10.0 gm/dl (11.8-15.2) L 06/21/18 11:55 Hct 29.4 % (35.5-45.6) L 06/21/18 11:55 MCV 97 fl (84-94) H 06/21/18 11:55 MCH 33 pg (28-32) H 06/21/18 11:55 MCHC 34 % (32-34) 06/21/18 11:55 RDW 12.6 % (13.2-15.2) L 06/21/18 11:55 Plt Count 84 K/mm3 (140-440) L 06/21/18 11:55 Lymph % (Auto) 10.7 % (13.4-35.0) L 06/21/18 11:55 [place] % (Auto) 4.2 % (0.0-7.3) 06/21/18 11:55 Eos % (Auto) 1.6 % (0.0-4.3) 06/21/18 11:55 Baso % (Auto) 0.1 % (0.0-1.8) 06/21/18 11:55 Lymph # 0.6 K/mm3 (1.2-5.4) L 06/21/18 11:55 [place] # 0.2 K/mm3 (0.0-0.8) 06/21/18 11:55 Eos # 0.1 K/mm3 (0.0-0.4) 06/21/18 11:55 Baso # 0.0 K/mm3 (0.0-0.1) 06/21/18 11:55 Add Manual Diff Complete 06/04/18 09:47 Total Counted 100 06/04/18 09:47 Seg Neutrophils % 83.4 % (40.0-70.0) H 06/21/18 11:55 Seg Neuts % (Manual) 92.0 % (40.0-70.0) H 06/04/18 09:47 Band Neutrophils % 0 % 06/04/18 09:47 Lymphocytes % (Manual) 5.0 % (13.4-35.0) L 06/04/18 09:47 Reactive Lymphs % (Man) 0 % 06/04/18 09:47 Monocytes % (Manual) 3.0 % (0.0-7.3) 06/04/18 09:47 Eosinophils % (Manual) 0 % (0.0-4.3) 06/04/18 09:47 Basophils % (Manual) 0 % (0.0-1.8) 06/04/18 09:47 Metamyelocytes % 0 % 06/04/18 09:47 Myelocytes % 0 % 06/04/18 09:47 Promyelocytes % 0 % 06/04/18 09:47 Blast Cells % 0 % 06/04/18 09:47 Nucleated RBC % Not Reportable 06/04/18 09:47 Seg Neutrophils # 4.8 K/mm3 (1.8-7.7) 06/21/18 11:55 Seg Neutrophils # Man 4.9 K/mm3 (1.8-7.7) 06/04/18 09:47 Band Neutrophils # 0.0 K/mm3 06/04/18 09:47 Lymphocytes # (Manual) 0.3 K/mm3 (1.2-5.4) L 06/04/18 09:47 Abs React Lymphs (Man) 0.0 K/mm3 06/04/18 09:47 Monocytes # (Manual) 0.2 K/mm3 (0.0-0.8) 06/04/18 09:47 Eosinophils # (Manual) 0.0 K/mm3 (0.0-0.4) 06/04/18 09:47 Basophils # (Manual) 0.0 K/mm3 (0.0-0.1) 06/04/18 09:47 Metamyelocytes # 0.0 K/mm3 06/04/18 09:47 Myelocytes # 0.0 K/mm3 06/04/18 09:47 Promyelocytes # 0.0 K/mm3 06/04/18 09:47 Blast Cells # 0.0 K/mm3 06/04/18 09:47 WBC Morphology Not Reportable 06/04/18 09:47 Hypersegmented Neuts Not Reportable 06/04/18 09:47 Hyposegmented Neuts Not Reportable 06/04/18 09:47 Hypogranular Neuts Not Reportable 06/04/18 09:47 Smudge Cells Not Reportable 06/04/18 09:47 Toxic Granulation 1+ 06/04/18 09:47 Toxic Vacuolation Not Reportable 06/04/18 09:47 Dohle Bodies Not Reportable 06/04/18 09:47 Pelger-Huet Anomaly Not Reportable 06/04/18 09:47 Dashawn Rods Not Reportable 06/04/18 09:47 Platelet Estimate Consistent w auto 06/04/18 09:47 Clumped Platelets Not Reportable 06/04/18 09:47 Plt Clumps, EDTA Not Reportable 06/04/18 09:47 Large Platelets Not Reportable 06/04/18 09:47 Giant Platelets Not Reportable 06/04/18 09:47 Platelet Satelliting Not Reportable 06/04/18 09:47 Plt Morphology Comment Not Reportable 06/04/18 09:47 RBC Morphology Normal 06/04/18 09:47 Dimorphic RBCs Not Reportable 06/04/18 09:47 Polychromasia Not Reportable 06/04/18 09:47 Hypochromasia Not Reportable 06/04/18 09:47 Poikilocytosis Not Reportable 06/04/18 09:47 Anisocytosis Not Reportable 06/04/18 09:47 Microcytosis Not Reportable 06/04/18 09:47 Macrocytosis Not Reportable 06/04/18 09:47 Spherocytes Not Reportable 06/04/18 09:47 Pappenheimer Bodies Not Reportable 06/04/18 09:47 Sickle Cells Not Reportable 06/04/18 09:47 Target Cells Not Reportable 06/04/18 09:47 Tear Drop Cells Not Reportable 06/04/18 09:47 Ovalocytes Not Reportable 06/04/18 09:47 Helmet Cells Not Reportable 06/04/18 09:47 [place] Bodies Not Reportable 06/04/18 09:47 [place] Rings Not Reportable 06/04/18 09:47 [place] Cells Not Reportable 06/04/18 09:47 Bite Cells Not Reportable 06/04/18 09:47 Crenated Cell Not Reportable 06/04/18 09:47 Elliptocytes Not Reportable 06/04/18 09:47 Acanthocytes (Spur) Not Reportable 06/04/18 09:47 Rouleaux Not Reportable 06/04/18 09:47 Hemoglobin C Crystals Not Reportable 06/04/18 09:47 Schistocytes Not Reportable 06/04/18 09:47 Malaria parasites Not Reportable 06/04/18 09:47 Rajesh Bodies Not Reportable 06/04/18 09:47 Hem Pathologist Commnt No 06/04/18 09:47 PT 16.6 Sec. (12.2-14.9) H 06/18/18 05:06 INR 1.26 (0.87-1.13) H 06/18/18 05:06 POC ABG pH 7.381 (7.35-7.45) 06/20/18 11:51 POC ABG pCO2 44.7 (35-45) 06/20/18 11:51 POC ABG pO2 86 (80-105) 06/20/18 11:51 POC ABG HCO3 26.5 (22-26 mml/L) 06/20/18 11:51 POC ABG Total CO2 28 (23-27mmol/L) 06/20/18 11:51 POC ABG O2 Sat 96 06/20/18 11:51 POC ABG Base Excess 1 ((-2) - (+3)mmol/L) 06/20/18 11:51 FiO2 3 % 06/20/18 11:51 Sodium 135 mmol/L (137-145) L 06/22/18 05:11 Potassium 5.0 mmol/L (3.6-5.0) D 06/22/18 05:11 Chloride 101.7 mmol/L (98-107) 06/22/18 05:11 Carbon Dioxide 25 mmol/L (22-30) 06/22/18 05:11 Anion Gap 13 mmol/L 06/22/18 05:11 BUN 10 mg/dL (9-20) 06/22/18 05:11 Creatinine 0.4 mg/dL (0.8-1.5) L 06/22/18 05:11 Estimated GFR > 60 ml/min 06/22/18 05:11 BUN/Creatinine Ratio 25 % 06/22/18 05:11 Glucose 120 mg/dL (75-100) H 06/22/18 05:11 POC Glucose 110 (70-105) H 06/22/18 11:56 Osmolality 312 Mosm/kg 06/18/18 11:19 Uric Acid 3.5 mg/dL (3.5-7.6) 06/18/18 11:19 Calcium 7.3 mg/dL (8.4-10.2) L 06/22/18 05:11 Phosphorus 2.40 mg/dL (2.5-4.5) L D 06/22/18 05:11 Magnesium 2.30 mg/dL (1.7-2.3) 06/22/18 05:11 Total Bilirubin 1.00 mg/dL (0.1-1.2) 06/17/18 08:21 Direct Bilirubin < 0.2 mg/dL (0-0.2) 06/04/18 04:39 Indirect Bilirubin 0.2 mg/dL 06/04/18 04:39 AST 26 units/L (5-40) 06/17/18 08:21 ALT 30 units/L (7-56) 06/17/18 08:21 Alkaline Phosphatase 49 units/L (35-129) 06/17/18 08:21 Ammonia 55.0 umol/L (25-60) 06/16/18 17:33 Total Creatine Kinase 420 units/L (55-170) H 06/02/18 21:25 Troponin T < 0.010 ng/mL (0.00-0.029) 06/02/18 21:25 NT-Pro-B Natriuret Pep 379.8 pg/mL (0-900) 06/02/18 21:25 Total Protein 5.2 g/dL (6.3-8.2) L 06/17/18 08:21 Albumin 2.9 g/dL (3.9-5) L 06/17/18 08:21 Albumin/Globulin Ratio 1.3 % 06/17/18 08:21 Vitamin B12 697.5 pg/mL (211-911) 06/16/18 17:33 TSH 1.100 mlU/mL (0.270-4.200) 06/03/18 20:45 Urine Color Yellow (Yellow) 06/16/18 03:20 Urine Turbidity Cloudy (Clear) 06/16/18 03:20 Urine pH 5.0 (5.0-7.0) 06/16/18 03:20 Ur Specific [place] 1.020 (1.003-1.030) 06/16/18 03:20 Urine Protein <15 mg/dl mg/dL (Negative) 06/16/18 03:20 Urine Glucose (UA) Neg mg/dL (Negative) 06/16/18 03:20 Urine Ketones Neg mg/dL (Negative) 06/16/18 03:20 Urine Blood Sm (Negative) 06/16/18 03:20 Urine Nitrite Neg (Negative) 06/16/18 03:20 Urine Bilirubin Neg (Negative) 06/16/18 03:20 Urine Urobilinogen < 2.0 mg/dL (<2.0) 06/16/18 03:20 Ur Leukocyte Esterase Lg (Negative) 06/16/18 03:20 Urine WBC (Auto) 89.0 /HPF (0.0-6.0) H 06/16/18 03:20 Urine RBC (Auto) 10.0 /HPF (0.0-6.0) 06/16/18 03:20 U Epithel Cells (Auto) 2.0 /HPF (0-13.0) 06/16/18 03:20 Urine Bacteria (Auto) 1+ /HPF (Negative) 06/16/18 03:20 Urine Mucus Few /HPF 06/16/18 03:20 Urine Yeast (Budding) 1+ /HPF 06/16/18 03:20 Urine Osmolality 203 Mosm/kg 06/02/18 22:02 Urine Sodium 66 mmol/L 06/18/18 10:05 RPR Nonreactive (Nonreactive) 06/16/18 17:33 Active Medications - Current Medications Current Medications: Generic Name Dose Route Start Last Admin Trade Name Freq PRN Reason Stop Dose Admin Acetaminophen 650 mg 06/03/18 00:05 06/22/18 04:37 Tylenol PO 650 mg Q4H PRN Administration Pain MILD(1-3)/Fever >100.5/CHANCE Acetaminophen 650 mg 06/16/18 15:03 06/19/18 07:46 Tylenol [place] 650 mg Q4H PRN Administration Non Cardiac Pain or Temp>100.5 Albuterol 2.5 mg 06/03/18 13:11 06/03/18 15:01 Proventil IH 2.5 mg Q4HRT PRN Administration Shortness Of Breath Albuterol/Ipratropium 1 ampul 06/05/18 20:00 06/22/18 14:36 Duoneb *Not For Prn Use* IH 1 ampul TIDRT CINDA Administration Lipase/Protease/Amylase 1 each 06/20/18 14:55 Pancreaznupur Salomon 10,500 Unit FEEDTUBE PRN PRN For Clogged Feeding Tube Arformoterol Tartrate 15 mcg 06/03/18 20:00 06/22/18 08:14 Brovana Nebu IH 15 mcg Q12HRT CINDA Administration Budesonide 0.5 mg 06/03/18 20:00 06/22/18 08:14 Pulmicort IH 0.5 mg Q12HRT CINDA Administration Clonidine HCl 0.1 mg 06/11/18 22:00 06/22/18 00:02 Catapres PO Not Given HS CINDA Enoxaparin Sodium 40 mg 06/03/18 10:00 06/22/18 09:09 Lovenox SUB-Q 40 mg QDAY@1000 CINDA Administration Folic Acid 1 mg 06/04/18 10:00 06/22/18 09:08 Folvite PO 1 mg QDAY CINDA Administration Haloperidol Lactate 5 mg 06/09/18 09:51 06/20/18 09:27 Haldol IM 5 mg Q6H PRN Administration Acute Psychosis Hydralazine HCl 10 mg 06/06/18 12:10 06/09/18 14:26 Apresoline IV 10 mg Q4H PRN Administration BP >160/100 Cefepime HCl 2 gm in 100 mls @ 200 mls/hr 06/20/18 22:00 06/22/18 09:07 Maxipime/Ns 2 Gm/100 Ml IV 200 mls/hr Q12HR CINDA Administration Protocol Vancomycin HCl 750 mg/ Sodium 265 mls @ 166.667 mls/hr 06/21/18 18:00 06/21/18 20:05 Chloride IV 166.667 mls/hr Q24H CINDA Administration Lorazepam 2 mg 06/03/18 14:00 06/22/18 11:53 Ativan PO 2 mg Q1H PRN Administration CIWA-Ar 8-15 Lorazepam 4 mg 06/03/18 14:00 06/20/18 11:01 Ativan IV 4 mg Q1H PRN Administration CIWA-Ar 16-25 Lorazepam 4 mg 06/03/18 14:00 Ativan IV Q15MIN PRN CIWA-Ar >25 Melatonin 5 mg 06/07/18 19:41 06/10/18 23:30 Melatonin PO 5 mg QHS PRN Administration Sleep Metoprolol Tartrate 5 mg 06/21/18 11:22 Lopressor IV Q6H PRN sustained HR > 130 Metoprolol Tartrate 12.5 mg 06/21/18 22:00 06/22/18 09:08 Lopressor PO 12.5 mg BID CINDA Administration Mirtazapine 15 mg 06/10/18 22:00 06/21/18 21:25 Remeron PO 15 mg QHS CINDA Administration Morphine Sulfate 2 mg 06/19/18 13:47 06/22/18 06:52 Morphine IV 2 mg Q3H PRN Administration Pain, Moderate (4-6) Multivitamins 5 ml 06/04/18 10:00 06/22/18 09:08 Centrum Liq PO 5 ml QDAY CINDA Administration Ondansetron HCl 4 mg 06/03/18 00:05 Zofran IV Q8H PRN Nausea And Vomiting Pantoprazole Sodium 40 mg 06/06/18 10:00 06/22/18 09:09 Protonix PO 40 mg DAILY CINDA Administration Simple Syrup 15 ml 06/20/18 14:55 Simple Syrup FEEDTUBE PRN PRN Hypoglycemia Simple Syrup 30 ml 06/20/18 14:55 Simple Syrup FEEDTUBE PRN PRN Hypoglycemia Sodium Bicarbonate 325 mg 06/20/18 14:55 Sodium Bicarbonate FEEDTUBE PRN PRN For Clogged Feeding Tube Sodium Chloride 10 ml 06/03/18 10:00 06/22/18 09:09 Sodium Chloride Flush Syringe 10 Ml IV 10 ml BID CINDA Administration Sodium Chloride 10 ml 06/03/18 00:05 Sodium Chloride Flush Syringe 10 Ml IV PRN PRN LINE FLUSH Tamsulosin HCl 0.4 mg 06/03/18 12:00 06/22/18 09:08 Flomax PO 0.4 mg QDAY CINDA Administration Thiamine HCl 100 mg 06/04/18 10:00 06/22/18 09:09 Vitamin B-1 PO 100 mg QDAY CINDA Administration Nutrition/Malnutrition Assess - Dietary Evaluation Nutrition/Malnutrition Findings: Nutrition Notes Start: 06/09/18 14:29 Freq: Status: Active Protocol: Document 06/20/18 13:44 RM (Rec: 06/20/18 13:53 RM [id number]) Nutrition Notes Initial or Follow up Reassessment Current Diagnosis COPD,Hypertension,Heart Failure Other Pertinent Diagnosis Alcoholic Hx, AMS, UTI, Dementia, Metabolic encephalopathy Current Diet NPO Labs/Tests Reviewed Pertinent Medications Reviewed Height 5 ft 10 in Weight 56.9 kg [place] Body Weight (kg) 75.45 BMI 18.0 Subjective/Other Information Consulted for TF recommendation. PEG placement scheduled for today per progress note 06/20/18 . Code met called and pt transferred to [facility]. PEG placement cancelled and dobhoff planned to be placed. Burn Absent Trauma Absent #1 Nutrition Diagnosis Inadequate oral intake Diagnosis Progress(for reassessment Continues documentation) Is patient on ventilator? No Is Patient Ambulatory and/or Out of Bed No REE-([facility]-confined to bed) 1590.624 Kcal/Kg value to use for calculation 32 Approximate Energy Requirements Using 1821 kcal/Kg Calculation Used for Recommendations Kcal/kg Additional Notes Protein Needs: 61-73g (1-1.2g/ kg) Fluid Needs: 1 ml/kcal Nutrition Intervention Change Diet Order: TF consult Nutrition Support: Osmolite 1.5 at 55 ml/hr Water Flush 150ml q4h. Kcal 1,980 Protein (gm) 82 Fluid (mL) 1,005 Goal #1 TF consult Anticipated Discharge Needs: Unable to determine at this time Follow-Up By: 06/23/18 Additional Comments Follow for TF consult
[2018-06-22] MEDS: VANCOMYCIN 750 MG in NACL 0.9% 250ML 250 ML IV SCH (18:37)
[2018-06-22] MEDS: REMERON PO SCH (22:32)
[2018-06-23] MEDS: PULMICORT IH SCH ×2 (08:28→20:00)
[2018-06-23] MEDS: BROVANA NEBU IH SCH ×2 (08:29→20:00)
[2018-06-23] MEDS: DUONEB *Not for PRN Use IH SCH ×3 (08:29→20:02)
--- NOTE | 2018-06-23 09:41 | Progress Note ---
Assessment and Plan Impression * Acute hyponatremia * COPD * Alcohol abuse Recommendations * Patient's serum sodium has improved. It was 135 yesterday. * Today's chemistries are pending * Urine sodium was 20 and urine osmolality is 203 . 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 Hyponatremia may be due to liver disease as well * Continue free water restriction Subjective Date of service: 06/23/18 Principal diagnosis: AE-COPD; Acute metabolic-toxic encephalopathy; hyponatremia Interval history: Patient is somewhat lethargic. Dobbhoff tube in place. Comfortable. Objective - Vital Signs Vital signs: Vital Signs - 12hr 06/22/18 06/22/18 06/22/18 22:00 22:32 22:35 Temperature Pulse Rate 68 78 88 Pulse Rate [ Apical] Pulse Rate [ From Monitor] Pulse Rate [ Throughout] Respiratory 19 Rate Respiratory Rate [ Throughout] Blood Pressure 136/66 139/70 139/70 O2 Sat by Pulse 100 Oximetry 06/22/18 06/22/18 06/22/18 22:40 22:56 23:01 Temperature Pulse Rate 97 H Pulse Rate [ Apical] Pulse Rate [ From Monitor] Pulse Rate [ 83 93 H Throughout] Respiratory 41 H Rate Respiratory 29 H 36 H Rate [ Throughout] Blood Pressure 137/70 O2 Sat by Pulse 100 100 Oximetry 06/23/18 06/23/18 06/23/18 00:00 01:01 02:00 Temperature 99.0 F Pulse Rate 69 67 67 Pulse Rate [ 69 Apical] Pulse Rate [ 69 From Monitor] Pulse Rate [ Throughout] Respiratory 14 16 20 Rate Respiratory Rate [ Throughout] Blood Pressure 147/68 141/66 137/68 O2 Sat by Pulse 100 100 Oximetry 06/23/18 06/23/18 06/23/18 03:00 04:00 05:00 Temperature 99.5 F Pulse Rate 68 66 70 Pulse Rate [ 63 Apical] Pulse Rate [ 69 From Monitor] Pulse Rate [ Throughout] Respiratory 13 18 16 Rate Respiratory Rate [ Throughout] Blood Pressure 142/70 133/61 131/97 O2 Sat by Pulse 100 100 91 Oximetry 06/23/18 06/23/18 06:00 07:55 Temperature 98.3 F Pulse Rate 66 Pulse Rate [ Apical] Pulse Rate [ From Monitor] Pulse Rate [ Throughout] Respiratory 19 Rate Respiratory Rate [ Throughout] Blood Pressure 130/62 O2 Sat by Pulse 100 Oximetry - General Appearance General appearance: well-developed, well-nourished, appears stated age EENT: PERRL, mucous membranes moist Neck: no JVD, no thyromegaly, no carotid bruit, supple Respiratory: Present: [facility] Cardiology: regular, normal heart rate, S1S2, no murmurs Gastrointestinal: normal, normoactive bowel sounds Integumentary: no rash, other (no edema) - Lab 06/21/18 11:55 06/22/18 05:11 Most recent lab results Calcium 7.3 mg/dL (8.4-10.2) L 06/22/18 05:11 Phosphorus 2.40 mg/dL (2.5-4.5) L D 06/22/18 05:11 Magnesium 2.30 mg/dL (1.7-2.3) 06/22/18 05:11 Urine Sodium 66 mmol/L 06/18/18 10:05 Medications & Allergies - Medications Allergies/Adverse Reactions: Allergies diphenhydramine HCl [From Benadryl] Allergy (Verified 09/24/14 11:56) Unknown HALLUCINATIONS Home Medications: Home Medications Medication Instructions Recorded Confirmed Last Taken Type Albuterol *Only Ed* [Proventil 2.5 mg IH Q4HRT PRN #1 nebu 10/03/14 06/03/18 Unknown Rx 0.5% NEBS] Folic Acid [Folvite] 1 mg PO QDAY #30 tablet 10/03/14 06/03/18 Unknown Rx Furosemide [Lasix TAB] 20 mg PO QDAY #30 tablet 10/03/14 06/03/18 Unknown Rx Metoprolol [Lopressor TAB] 12.5 mg PO BID #60 tablet 10/03/14 06/03/18 Unknown Rx Multivitamins Liq [Multiple 5 ml PO QDAY 30 Days oral.liqd 10/03/14 06/03/18 Unknown Rx Vitamin Liq (Theragran)] Thiamine [Vitamin B-1] 100 mg PO QDAY #30 tablet 10/03/14 06/03/18 Unknown Rx Active Medications: Generic Name Dose Route Start Last Admin Trade Name Freq PRN Reason Stop Dose Admin Acetaminophen 650 mg 06/03/18 00:05 06/22/18 04:37 Tylenol PO 650 mg Q4H PRN Administration Pain MILD(1-3)/Fever >100.5/CHANCE Acetaminophen 650 mg 06/16/18 15:03 06/19/18 07:46 Tylenol [place] 650 mg Q4H PRN Administration Non Cardiac Pain or Temp>100.5 Albuterol 2.5 mg 06/03/18 13:11 06/03/18 15:01 Proventil IH 2.5 mg Q4HRT PRN Administration Shortness Of Breath Albuterol/Ipratropium 1 ampul 06/05/18 20:00 06/23/18 08:29 Duoneb *Not For Prn Use* IH 1 ampul TIDRT CINDA Administration Lipase/Protease/Amylase 1 each 06/20/18 14:55 Pancreaze 10,500 Unit FEEDTUBE PRN PRN For Clogged Feeding Tube Arformoterol Tartrate 15 mcg 06/03/18 20:00 06/23/18 08:29 Brovana Nebu IH 15 mcg Q12HRT CINDA Administration Budesonide 0.5 mg 06/03/18 20:00 06/23/18 08:28 Pulmicort IH 0.5 mg Q12HRT CINDA Administration Clonidine HCl 0.1 mg 06/11/18 22:00 06/22/18 22:35 Catapres PO 0.1 mg HS CINDA Administration Enoxaparin Sodium 40 mg 06/03/18 10:00 06/22/18 09:09 Lovenox SUB-Q 40 mg QDAY@1000 CINDA Administration Folic Acid 1 mg 06/04/18 10:00 06/22/18 09:08 Folvite PO 1 mg QDAY CINDA Administration Haloperidol Lactate 5 mg 06/09/18 09:51 06/20/18 09:27 Haldol IM 5 mg Q6H PRN Administration Acute Psychosis Hydralazine HCl 10 mg 06/06/18 12:10 06/09/18 14:26 Apresoline IV 10 mg Q4H PRN Administration BP >160/100 Cefepime HCl 2 gm in 100 mls @ 200 mls/hr 06/20/18 22:00 06/22/18 22:25 Maxipime/Ns 2 Gm/100 Ml IV 200 mls/hr Q12HR CINDA Administration Protocol Vancomycin HCl 750 mg/ Sodium 265 mls @ 166.667 mls/hr 06/21/18 18:00 06/22/18 18:37 Chloride IV 166.667 mls/hr Q24H CINDA Administration Lorazepam 2 mg 06/03/18 14:00 06/22/18 23:03 Ativan PO 2 mg Q1H PRN Administration CIWA-Ar 8-15 Lorazepam 4 mg 06/03/18 14:00 06/20/18 11:01 Ativan IV 4 mg Q1H PRN Administration CIWA-Ar 16-25 Lorazepam 4 mg 06/03/18 14:00 Ativan IV Q15MIN PRN CIWA-Ar >25 Melatonin 5 mg 06/07/18 19:41 06/10/18 23:30 Melatonin PO 5 mg QHS PRN Administration Sleep Metoprolol Tartrate 5 mg 06/21/18 11:22 Lopressor IV Q6H PRN sustained HR > 130 Metoprolol Tartrate 12.5 mg 06/21/18 22:00 06/22/18 22:32 Lopressor PO 12.5 mg BID CINDA Administration Mirtazapine 15 mg 06/10/18 22:00 06/22/18 22:32 Remeron PO 15 mg QHS CINDA Administration Morphine Sulfate 2 mg 06/19/18 13:47 06/22/18 06:52 Morphine IV 2 mg Q3H PRN Administration Pain, Moderate (4-6) Multivitamins 5 ml 06/04/18 10:00 06/22/18 09:08 Centrum Liq PO 5 ml QDAY CINDA Administration Ondansetron HCl 4 mg 06/03/18 00:05 Zofran IV Q8H PRN Nausea And Vomiting Pantoprazole Sodium 40 mg 06/06/18 10:00 06/22/18 09:09 Protonix PO 40 mg DAILY CINDA Administration Simple Syrup 15 ml 06/20/18 14:55 Simple Syrup FEEDTUBE PRN PRN Hypoglycemia Simple Syrup 30 ml 06/20/18 14:55 Simple Syrup FEEDTUBE PRN PRN Hypoglycemia Sodium Bicarbonate 325 mg 06/20/18 14:55 Sodium Bicarbonate FEEDTUBE PRN PRN For Clogged Feeding Tube Sodium Chloride 10 ml 06/03/18 10:00 06/22/18 22:27 Sodium Chloride Flush Syringe 10 Ml IV 10 ml BID CINDA Administration Sodium Chloride 10 ml 06/03/18 00:05 Sodium Chloride Flush Syringe 10 Ml IV PRN PRN LINE FLUSH Tamsulosin HCl 0.4 mg 06/03/18 12:00 06/22/18 09:08 Flomax PO 0.4 mg QDAY CINDA Administration Thiamine HCl 100 mg 06/04/18 10:00 06/22/18 09:09 Vitamin B-1 PO 100 mg QDAY CINDA Administration
[2018-06-23] MEDS: MORPHINE IV PRN (10:39)
[2018-06-23] MEDS: MAXIPIME/NS 2 GM/100 ML 2 GM/100 ML BAG IV SCH ×2 (10:40→22:11)
[2018-06-23] MEDS: LOPRESSOR PO SCH ×2 (10:42→21:49)
[2018-06-23] MEDS: Centrum Liq PO SCH (10:42)
[2018-06-23] MEDS: FOLVITE PO SCH (10:42)
[2018-06-23] MEDS: FLOMAX PO SCH (10:42)
--- NOTE | 2018-06-23 10:42 | Gastroenterology Progress Note ---
Assessment and Plan 1.PEG placement - Oropharyngeal dysphagia - getting tube feeds via Dobhoff. If mental status improves, can consider repeat swallow evaluation. If not, plan as below. - will do PEG when close to ready for discharge, or if keeps pulling Dobhoff out. Subjective Date of service: 06/23/18 Principal diagnosis: PEG placement Interval history: Patient remains confused in restraints. Tolerating TFs via Dobhoff. Objective - Constitutional Vitals: Temp Pulse Resp BP Pulse Ox 98.3 F 94 H 18 130/62 96 06/23/18 07:55 06/23/18 08:10 06/23/18 08:10 06/23/18 06:00 06/23/18 10:00 General appearance: other (confused in restraints) - Respiratory Respiratory: bilateral: diminished - Gastrointestinal General gastrointestinal: Present: soft, non-distended, other (+BS) - Labs CBC & Chem 7: 06/21/18 11:55 06/22/18 05:11 Labs: Laboratory Results - last 24 hr 06/22/18 11:56 POC Glucose 110 H
[2018-06-23] MEDS: LOVENOX SUB-Q SCH (10:43)
[2018-06-23] MEDS: PROTONIX PO SCH (10:43)
[2018-06-23] MEDS: VITAMIN B-1 PO SCH (10:44)
[2018-06-23] MEDS: SODIUM CHLORIDE FLUSH SYRINGE 10 ML IV SCH ×2 (10:44→21:51)
--- NOTE | 2018-06-23 11:32 | Progress Note ---
Assessment and Plan Cultures: Blood culture 06/13/2018 no growth Blood culture: 06/19/2018: no growth in 24 hours Urine culture grew multiple sp <10 Urine culture 06/16/2018 10-100K Enterococcus. Assessment: 72 y/o male with history of alcoholism,tobacco use, COPD and dementia admitted on 06/02/2018 due to AMS/confusion: 1) Sepsis: NOT Present on admission.Improved. No fevers. Etiology most likely UTI., +/- drug fever. CXR negative. Blood culture 06/13/2018 no growth. Repeat blood culture no growth thus far. Discontinue unasyn to r/o possible drug fever. Continue Vancomycin and Cefepime. 2) UTI: mild UTI present on admission, however worsening. UA showed wbc 24, large LE. Urine culture grew multiple sp <10. A zuniga was placed and then removed. Repeat UA showed wbc 89, large LE. Urine culture 06/16/2018 10-100K Enterococcus. Abdominal US shows no evidence of hydronephrosis. The urinary bladder appears distended, but smooth in contour. No evidence of gallstones or cholecystitis. 3) Acute on chronic encephalopathy: multifactorial- dementia, ETOH, hyponatremia and UTI. Brain MRI shows global cortical atrophy and otherwise negative. No evidence of acute/subacute infarct or hemorrhage. 4) Acute urinary retention: Improved. Zuniga catheter 5) Hyponatremia: Improved. 6) Severe malnutrition: failed swallow study, Feeding tube placed. 7) Acute Respiratory Failure: probably related to COPD exacerbation. On 4L/NC. Recommendations: continue vancomyin and cefepime, D3 of D5 -f/u blood cultures -f/u CT of abdomen ordered venous ultrasound - cancelled [facility] M: [phone] O:[phone] Subjective Date of service: 06/23/18 Principal diagnosis: PEG placement Interval history: Patient seen and examined. Calm today. Son at bedside. Low grade fever. Objective - Exam Narrative Exam: General appearance: Somnolent.No easy to arouse. Cachexia. Eyes: anicteric sclerae, moist conjunctivae; no lid-lag; PERRLA HENT: Atraumatic; oropharynx limited. + NGT Neck: Trachea midline; supple, no thyromegaly or lymphadenopathy Lungs: CTA CV: tachycardic Abdomen: Soft, +bowel sounds, no tenderness on exam Extremities: No peripheral edema or extremity lymphadenopathy Skin: no rash or abscess Psych: calm Neuro: somnolent - Constitutional Vitals: Vital Signs Temp Pulse Resp BP Pulse Ox 98.3 F 104 H 18 135/66 96 06/23/18 07:55 06/23/18 10:42 06/23/18 08:10 06/23/18 10:42 06/23/18 10:00 Temperature -Last 24 Hours Temperature 98.3 F Temperature 99.5 F Temperature 99.0 F Temperature 100.0 F Temperature 98.8 F - Labs CBC & Chem 7: 06/21/18 11:55 06/22/18 05:11 Labs: Abnormal lab results 06/22/18 Range/Units 11:56 POC Glucose 110 H (70-105)
--- NOTE | 2018-06-23 13:50 | Progress Note ---
Assessment and Plan Patient still confused.On 2 litres O2, O2 saturation is 94%. No acute respiratory distress. - Patient Problems (1) COPD exacerbation Current Visit: No Status: Acute Plan to address problem: According to the history, possible COPD. Patient on 2L O2 Albuterol/Atrovent aerosol treatments q6hrs Continue solumedrol Continue Lovenox Continue Protonix Patient is on cefepime and vancomycin. (2) Acute hyponatremia Current Visit: Yes Status: Acute Plan to address problem: sodium improved to 135 (3) Altered mental status Current Visit: Yes Status: Acute Plan to address problem: Watch altered mental status. (4) Alcohol abuse Current Visit: Yes Status: Chronic Plan to address problem: Patient confused and having shakes and Tremors. Patient is on I/V ativan. Subjective Date of service: 06/23/18 Principal diagnosis: PEG placement Interval history: Patient still confused.On 2 litres O2, O2 saturation is 94%. No acute respiratory distress. Objective Vital Signs - 12hr 06/23/18 06/23/18 06/23/18 02:00 03:00 04:00 Temperature 99.5 F Pulse Rate 67 68 66 Pulse Rate [ 63 Apical] Pulse Rate [ 69 From Monitor] Pulse Rate [ Throughout] Respiratory 20 13 18 Rate Respiratory Rate [ Throughout] Blood Pressure 137/68 142/70 133/61 O2 Sat by Pulse 100 100 100 Oximetry 06/23/18 06/23/18 06/23/18 05:00 06:00 07:00 Temperature Pulse Rate 70 66 62 Pulse Rate [ Apical] Pulse Rate [ From Monitor] Pulse Rate [ Throughout] Respiratory 16 19 20 Rate Respiratory Rate [ Throughout] Blood Pressure 131/97 130/62 133/62 O2 Sat by Pulse 91 100 100 Oximetry 06/23/18 06/23/18 06/23/18 07:55 08:00 08:10 Temperature 98.3 F 98.3 F Pulse Rate 62 Pulse Rate [ 98 H Apical] Pulse Rate [ 98 H From Monitor] Pulse Rate [ 93 H 94 H Throughout] Respiratory 19 Rate Respiratory 18 18 Rate [ Throughout] Blood Pressure 128/62 O2 Sat by Pulse 100 Oximetry 06/23/18 06/23/18 06/23/18 09:00 10:00 10:42 Temperature Pulse Rate 69 78 104 H Pulse Rate [ Apical] Pulse Rate [ From Monitor] Pulse Rate [ Throughout] Respiratory 18 26 H Rate Respiratory Rate [ Throughout] Blood Pressure 124/56 116/68 135/66 O2 Sat by Pulse 100 98 Oximetry 06/23/18 06/23/18 11:01 11:58 Temperature 98.3 F Pulse Rate 103 H Pulse Rate [ Apical] Pulse Rate [ From Monitor] Pulse Rate [ Throughout] Respiratory 42 H Rate Respiratory Rate [ Throughout] Blood Pressure 135/66 O2 Sat by Pulse 94 Oximetry Constitutional: no acute distress, lethargic, appears uncomfortable, other (elderly and chronically ill looking CM , agitated, tremulous) Eyes: non-icteric ENT: oropharynx moist Neck: supple, no JVD, other (no thyromegaly, small bowel feeding tube in nares) Effort: mildly labored Ascultation: Bilateral: diminished breath sounds, other (prolonged expiratory phase) Percussion: Bilateral: not dull Cardiovascular: regular rate and rhythm, other (S1,S2, no murmurs) Gastrointestinal: normoactive bowel sounds, soft, non-tender, non-distended Integumentary: normal Extremities: no cyanosis, no edema, pink and warm, pulses normal Neurologic: pupils equal and round, unable to assess Psychiatric: other (delirious) CBC and BMP: 06/21/18 11:55 06/22/18 05:11 ABG, PT/INR, D-dimer: ABG POC ABG pH 7.381 (7.35-7.45) 06/20/18 11:51 POC ABG pCO2 44.7 (35-45) 06/20/18 11:51 POC ABG pO2 86 (80-105) 06/20/18 11:51 POC ABG HCO3 26.5 (22-26 mml/L) 06/20/18 11:51 POC ABG Total CO2 28 (23-27mmol/L) 06/20/18 11:51 POC ABG O2 Sat 96 06/20/18 11:51 PT/INR, D-dimer PT 16.6 Sec. (12.2-14.9) H 06/18/18 05:06 INR 1.26 (0.87-1.13) H 06/18/18 05:06 Abnormal lab findings: Abnormal Labs 06/02/18 06/02/18 06/02/18 21:25 21:25 22:03 WBC RBC Hgb Hct MCV MCH 33 H MCHC 35 H RDW 12.8 L Plt Count Lymph % (Auto) Lymph # Seg Neutrophils % Seg Neuts % (Manual) 80.0 H Lymphocytes % (Manual) Seg Neutrophils # Lymphocytes # (Manual) 0.8 L PT INR Sodium 109 L* Potassium Chloride 71.3 L Carbon Dioxide BUN 6 L Creatinine 0.5 L Glucose POC Glucose Calcium Phosphorus Magnesium Ammonia Total Creatine Kinase 420 H Total Protein Albumin Urine WBC (Auto) 24.0 H 06/03/18 06/03/18 06/03/18 00:15 06:27 09:42 WBC RBC Hgb Hct MCV MCH MCHC RDW Plt Count Lymph % (Auto) Lymph # Seg Neutrophils % Seg Neuts % (Manual) Lymphocytes % (Manual) Seg Neutrophils # Lymphocytes # (Manual) PT INR Sodium 113 L* 118 L* 116 L* Potassium 3.5 L 3.5 L Chloride 77.2 L 79.1 L 78.2 L Carbon Dioxide BUN 5 L 4 L 4 L Creatinine 0.4 L 0.5 L 0.4 L Glucose POC Glucose Calcium 8.2 L 7.9 L 8.1 L Phosphorus Magnesium Ammonia Total Creatine Kinase Total Protein Albumin Urine WBC (Auto) 06/03/18 06/03/18 06/03/18 14:41 14:41 20:45 WBC RBC Hgb Hct MCV MCH MCHC RDW Plt Count Lymph % (Auto) Lymph # Seg Neutrophils % Seg Neuts % (Manual) Lymphocytes % (Manual) Seg Neutrophils # Lymphocytes # (Manual) PT INR Sodium 114 L* 118 L* Potassium 3.1 L Chloride 76.3 L 79.7 L Carbon Dioxide BUN 4 L 3 L Creatinine 0.5 L 0.4 L Glucose POC Glucose Calcium 8.1 L 8.3 L Phosphorus Magnesium Ammonia 23.0 L Total Creatine Kinase Total Protein Albumin Urine WBC (Auto) 06/04/18 06/04/18 06/04/18 04:39 09:47 09:47 WBC RBC Hgb Hct MCV 95 H MCH 33 H MCHC RDW 12.8 L Plt Count Lymph % (Auto) Lymph # Seg Neutrophils % Seg Neuts % (Manual) 92.0 H Lymphocytes % (Manual) 5.0 L Seg Neutrophils # Lymphocytes # (Manual) 0.3 L PT INR Sodium 123 L Potassium Chloride 85.2 L Carbon Dioxide BUN 5 L Creatinine 0.5 L Glucose 129 H POC Glucose Calcium 8.3 L Phosphorus Magnesium Ammonia Total Creatine Kinase Total Protein 5.5 L Albumin 3.1 L Urine WBC (Auto) 06/05/18 06/06/18 06/07/18 04:29 05:25 07:11 WBC RBC Hgb Hct MCV MCH MCHC RDW Plt Count Lymph % (Auto) Lymph # Seg Neutrophils % Seg Neuts % (Manual) Lymphocytes % (Manual) Seg Neutrophils # Lymphocytes # (Manual) PT INR Sodium 126 L 133 L D 126 L D Potassium Chloride 90.4 L 95.1 L 86.1 L Carbon Dioxide BUN 8 L Creatinine 0.5 L 0.5 L 0.5 L Glucose 170 H 123 H 129 H POC Glucose Calcium 8.2 L 8.1 L Phosphorus Magnesium Ammonia Total Creatine Kinase Total Protein Albumin Urine WBC (Auto) 06/08/18 06/09/18 06/10/18 11:03 06:13 07:14 WBC RBC Hgb Hct MCV MCH MCHC RDW Plt Count Lymph % (Auto) Lymph # Seg Neutrophils % Seg Neuts % (Manual) Lymphocytes % (Manual) Seg Neutrophils # Lymphocytes # (Manual) PT INR Sodium 134 L D Potassium Chloride 92.2 L Carbon Dioxide 31 H BUN Creatinine 0.5 L 0.6 L 0.5 L Glucose 106 H 130 H 126 H POC Glucose Calcium Phosphorus Magnesium Ammonia Total Creatine Kinase Total Protein Albumin Urine WBC (Auto) 06/11/18 06/12/18 06/13/18 10:23 04:58 05:33 WBC RBC Hgb Hct MCV MCH MCHC RDW Plt Count Lymph % (Auto) Lymph # Seg Neutrophils % Seg Neuts % (Manual) Lymphocytes % (Manual) Seg Neutrophils # Lymphocytes # (Manual) PT INR Sodium 136 L 134 L Potassium 3.5 L Chloride Carbon Dioxide BUN 27 H Creatinine 0.4 L 0.5 L 0.6 L Glucose 155 H 141 H 112 H POC Glucose Calcium 8.1 L 7.9 L 8.3 L Phosphorus Magnesium Ammonia Total Creatine Kinase Total Protein Albumin Urine WBC (Auto) 06/13/18 06/14/18 06/14/18 05:33 05:14 05:14 WBC 12.6 H 12.3 H RBC Hgb Hct MCV 97 H 98 H MCH 33 H MCHC RDW Plt Count 133 L Lymph % (Auto) Lymph # Seg Neutrophils % Seg Neuts % (Manual) Lymphocytes % (Manual) Seg Neutrophils # Lymphocytes # (Manual) PT INR Sodium 146 H Potassium Chloride 107.2 H Carbon Dioxide BUN 31 H Creatinine 0.6 L Glucose 113 H POC Glucose Calcium Phosphorus Magnesium Ammonia Total Creatine Kinase Total Protein Albumin Urine WBC (Auto) 06/15/18 06/15/18 06/16/18 04:47 04:47 03:20 WBC 16.7 H RBC Hgb Hct MCV 97 H MCH MCHC RDW Plt Count 138 L Lymph % (Auto) Lymph # Seg Neutrophils % Seg Neuts % (Manual) Lymphocytes % (Manual) Seg Neutrophils # Lymphocytes # (Manual) PT INR Sodium 146 H Potassium Chloride 109.2 H Carbon Dioxide BUN 32 H Creatinine 0.6 L Glucose 124 H POC Glucose Calcium 7.8 L Phosphorus Magnesium Ammonia Total Creatine Kinase Total Protein Albumin Urine WBC (Auto) 89.0 H 06/16/18 06/17/18 06/17/18 05:22 08:21 08:21 WBC 11.4 H RBC Hgb Hct MCV 98 H MCH 33 H MCHC RDW Plt Count 107 L Lymph % (Auto) Lymph # Seg Neutrophils % Seg Neuts % (Manual) Lymphocytes % (Manual) Seg Neutrophils # Lymphocytes # (Manual) PT INR Sodium 146 H 146 H Potassium Chloride 109.0 H 109.2 H Carbon Dioxide BUN 39 H 47 H Creatinine Glucose 120 H 109 H POC Glucose Calcium 7.9 L 8.3 L Phosphorus Magnesium 2.60 H Ammonia Total Creatine Kinase Total Protein 5.2 L Albumin 2.9 L Urine WBC (Auto) 06/18/18 06/19/18 06/19/18 05:06 09:10 09:10 WBC RBC 3.50 L Hgb 11.7 L Hct 34.4 L MCV 98 H MCH 33 H MCHC RDW Plt Count 98 L Lymph % (Auto) 11.8 L Lymph # Seg Neutrophils % 82.4 H Seg Neuts % (Manual) Lymphocytes % (Manual) Seg Neutrophils # 8.8 H Lymphocytes # (Manual) PT 16.6 H INR 1.26 H Sodium 146 H Potassium Chloride 107.3 H Carbon Dioxide BUN 29 H Creatinine 0.7 L Glucose 74 L POC Glucose Calcium 7.6 L Phosphorus Magnesium Ammonia Total Creatine Kinase Total Protein Albumin Urine WBC (Auto) 06/21/18 06/21/18 06/21/18 11:55 11:55 14:49 WBC RBC 3.05 L Hgb 10.0 L Hct 29.4 L MCV 97 H MCH 33 H MCHC RDW 12.6 L Plt Count 84 L Lymph % (Auto) 10.7 L Lymph # 0.6 L Seg Neutrophils % 83.4 H Seg Neuts % (Manual) Lymphocytes % (Manual) Seg Neutrophils # Lymphocytes # (Manual) PT INR Sodium 130 L D 132 L Potassium 2.9 L* D 3.1 L Chloride 93.8 L 94.1 L Carbon Dioxide BUN Creatinine 0.4 L 0.4 L Glucose 107 H 115 H POC Glucose Calcium 7.4 L 7.7 L Phosphorus 1.90 L Magnesium 1.50 L Ammonia Total Creatine Kinase Total Protein Albumin Urine WBC (Auto) 06/22/18 06/22/18 05:11 11:56 WBC RBC Hgb Hct MCV MCH MCHC RDW Plt Count Lymph % (Auto) Lymph # Seg Neutrophils % Seg Neuts % (Manual) Lymphocytes % (Manual) Seg Neutrophils # Lymphocytes # (Manual) PT INR Sodium 135 L Potassium Chloride Carbon Dioxide BUN Creatinine 0.4 L Glucose 120 H POC Glucose 110 H Calcium 7.3 L Phosphorus 2.40 L D Magnesium Ammonia Total Creatine Kinase Total Protein Albumin Urine WBC (Auto) Allied health notes reviewed: nursing
[2018-06-23] MEDS: ATIVAN PO PRN (15:05)
[2018-06-23] MEDS: VANCOMYCIN 750 MG in NACL 0.9% 250ML 250 ML IV SCH (20:28)
[2018-06-23] MEDS: REMERON PO SCH (21:49)
[2018-06-23] MEDS: CATAPRES PO SCH (21:51)
--- NOTE | 2018-06-23 22:00 | Progress Note ---
Assessment and Plan Assessment and plan: 72-year-old man with history of alcoholism and likely dementia which has not been diagnosed with suspected by family. The patient's and he was dependent on her past the week 2 weeks prior. He was home by himself, is apparently drinking heavily not eating and not. He had been confused per his son and neighbors. His son and asked him to go to the ER , then he called the EMS. The patient was found to have a very low sodium, agitated and confused. CT head no acute findings Chest x-ray no acute findings -The patient is on [facility] protocol for alcohol withdrawal. He is now out of the window for alcohol withdrawal -He was counseled on tobacco cessation, time spent greater than 10 minutes -The patient was initially very hyponatremic when he came to the hospital, he r eceived saline IV, salt tabs and his potassium was replaced. -The patient developed urinary retention, therefore Barahona catheter placed -He received a course of steroids and nebulizers for COPD exacerbation, now improved. -he had very poor by mouth intake, he was only taking sips of drinks some barely consuming any food. 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 -cont abx for UTI- e fecalis, for total 5 days ending 06-20-18 -Patient now developed some hypernatremia from free water deficit, continue D5 water, plan for PEG tube, son has given consent, planned for Saturday -06/20; was agitated and in rapid afib, gave IV metoprolol, placed NGT to cont meds, received ativan per [facility] protocol then became hypotensive, IVF and pressors, transfer to [facility] -06/21; improving, weaning off pressors, K was repleted -he is pending G tube, GI would like to wait a few days to do the procedure -dc to SNF with hospice when improved Diagnoses Afib with RVR, PAF hypotension, likely 2/2 ativan administration hypercoaguable state Alcohol dependence and withdrawal Acute metabolic encephalopathy Severe hyponatremia, now resolved mild hypernatremia- d5w drip Hypercholesteremia Beer potomania severe malnutrition COPD exacerbation Tobacco abuse, current every day smoker Acute hypoxic respiratory failure Dementia severe malnutrition Sepsis UTI -Urinary retention/obstructive uropathy - CCT 33 minutes History Interval history: he was extremely agitated requiring ativan, after which he became hypotensive requiring dopamine ggt he was very tachycardic needing iv metoprolol Review of systems Constitutional: No fevers, no malaise, no joint pains CVS: No chest pain, no orthopnea, no dyspnea on exertion, no pedal edema GI: No abdominal pain, no diarrhea, no vomiting, no constipation has not been eating Respiratory: no sob or cough Hospitalist Physical - Physical exam Narrative exam: General.: , nontoxic HEENT: Moist mucous membranes, extraocular muscles intact, no lymphadenopathy Neck: supple Cardiac: S1-S2 heard Lungs: CTA Abdomen: soft , nontender, nondistended, bowel sounds positive Extremities: no edema clubbing or cyanosis Skin: no rash or lesions Neurologic: Confused, moves all extremities Psych: calm, - Constitutional Vitals: Temp Pulse Resp BP Pulse Ox 98.0 F 76 32 H 130/68 96 06/23/18 20:00 06/23/18 21:49 06/23/18 20:03 06/23/18 21:49 06/23/18 20:02 General appearance: Present: no acute distress, cachectic, other (lethargic) Results - Labs CBC & Chem 7: 06/24/18 00:39 06/24/18 05:00 Labs: Laboratory Last Values WBC 5.7 K/mm3 (4.5-11.0) 06/21/18 11:55 RBC 3.05 M/mm3 (3.65-5.03) L 06/21/18 11:55 Hgb 10.0 gm/dl (11.8-15.2) L 06/21/18 11:55 Hct 29.4 % (35.5-45.6) L 06/21/18 11:55 MCV 97 fl (84-94) H 06/21/18 11:55 MCH 33 pg (28-32) H 06/21/18 11:55 MCHC 34 % (32-34) 06/21/18 11:55 RDW 12.6 % (13.2-15.2) L 06/21/18 11:55 Plt Count 84 K/mm3 (140-440) L 06/21/18 11:55 Lymph % (Auto) 10.7 % (13.4-35.0) L 06/21/18 11:55 [place] % (Auto) 4.2 % (0.0-7.3) 06/21/18 11:55 Eos % (Auto) 1.6 % (0.0-4.3) 06/21/18 11:55 Baso % (Auto) 0.1 % (0.0-1.8) 06/21/18 11:55 Lymph # 0.6 K/mm3 (1.2-5.4) L 06/21/18 11:55 [place] # 0.2 K/mm3 (0.0-0.8) 06/21/18 11:55 Eos # 0.1 K/mm3 (0.0-0.4) 06/21/18 11:55 Baso # 0.0 K/mm3 (0.0-0.1) 06/21/18 11:55 Add Manual Diff Complete 06/04/18 09:47 Total Counted 100 06/04/18 09:47 Seg Neutrophils % 83.4 % (40.0-70.0) H 06/21/18 11:55 Seg Neuts % (Manual) 92.0 % (40.0-70.0) H 06/04/18 09:47 Band Neutrophils % 0 % 06/04/18 09:47 Lymphocytes % (Manual) 5.0 % (13.4-35.0) L 06/04/18 09:47 Reactive Lymphs % (Man) 0 % 06/04/18 09:47 Monocytes % (Manual) 3.0 % (0.0-7.3) 06/04/18 09:47 Eosinophils % (Manual) 0 % (0.0-4.3) 06/04/18 09:47 Basophils % (Manual) 0 % (0.0-1.8) 06/04/18 09:47 Metamyelocytes % 0 % 06/04/18 09:47 Myelocytes % 0 % 06/04/18 09:47 Promyelocytes % 0 % 06/04/18 09:47 Blast Cells % 0 % 06/04/18 09:47 Nucleated RBC % Not Reportable 06/04/18 09:47 Seg Neutrophils # 4.8 K/mm3 (1.8-7.7) 06/21/18 11:55 Seg Neutrophils # Man 4.9 K/mm3 (1.8-7.7) 06/04/18 09:47 Band Neutrophils # 0.0 K/mm3 06/04/18 09:47 Lymphocytes # (Manual) 0.3 K/mm3 (1.2-5.4) L 06/04/18 09:47 Abs React Lymphs (Man) 0.0 K/mm3 06/04/18 09:47 Monocytes # (Manual) 0.2 K/mm3 (0.0-0.8) 06/04/18 09:47 Eosinophils # (Manual) 0.0 K/mm3 (0.0-0.4) 06/04/18 09:47 Basophils # (Manual) 0.0 K/mm3 (0.0-0.1) 06/04/18 09:47 Metamyelocytes # 0.0 K/mm3 06/04/18 09:47 Myelocytes # 0.0 K/mm3 06/04/18 09:47 Promyelocytes # 0.0 K/mm3 06/04/18 09:47 Blast Cells # 0.0 K/mm3 06/04/18 09:47 WBC Morphology Not Reportable 06/04/18 09:47 Hypersegmented Neuts Not Reportable 06/04/18 09:47 Hyposegmented Neuts Not Reportable 06/04/18 09:47 Hypogranular Neuts Not Reportable 06/04/18 09:47 Smudge Cells Not Reportable 06/04/18 09:47 Toxic Granulation 1+ 06/04/18 09:47 Toxic Vacuolation Not Reportable 06/04/18 09:47 Dohle Bodies Not Reportable 06/04/18 09:47 Pelger-Huet Anomaly Not Reportable 06/04/18 09:47 Dashawn Rods Not Reportable 06/04/18 09:47 Platelet Estimate Consistent w auto 06/04/18 09:47 Clumped Platelets Not Reportable 06/04/18 09:47 Plt Clumps, EDTA Not Reportable 06/04/18 09:47 Large Platelets Not Reportable 06/04/18 09:47 Giant Platelets Not Reportable 06/04/18 09:47 Platelet Satelliting Not Reportable 06/04/18 09:47 Plt Morphology Comment Not Reportable 06/04/18 09:47 RBC Morphology Normal 06/04/18 09:47 Dimorphic RBCs Not Reportable 06/04/18 09:47 Polychromasia Not Reportable 06/04/18 09:47 Hypochromasia Not Reportable 06/04/18 09:47 Poikilocytosis Not Reportable 06/04/18 09:47 Anisocytosis Not Reportable 06/04/18 09:47 Microcytosis Not Reportable 06/04/18 09:47 Macrocytosis Not Reportable 06/04/18 09:47 Spherocytes Not Reportable 06/04/18 09:47 Pappenheimer Bodies Not Reportable 06/04/18 09:47 Sickle Cells Not Reportable 06/04/18 09:47 Target Cells Not Reportable 06/04/18 09:47 Tear Drop Cells Not Reportable 06/04/18 09:47 Ovalocytes Not Reportable 06/04/18 09:47 Helmet Cells Not Reportable 06/04/18 09:47 [place] Bodies Not Reportable 06/04/18 09:47 [place] Rings Not Reportable 06/04/18 09:47 Mic Cells Not Reportable 06/04/18 09:47 Bite Cells Not Reportable 06/04/18 09:47 Crenated Cell Not Reportable 06/04/18 09:47 Elliptocytes Not Reportable 06/04/18 09:47 Acanthocytes (Spur) Not Reportable 06/04/18 09:47 Rouleaux Not Reportable 06/04/18 09:47 Hemoglobin C Crystals Not Reportable 06/04/18 09:47 Schistocytes Not Reportable 06/04/18 09:47 Malaria parasites Not Reportable 06/04/18 09:47 Rajesh Bodies Not Reportable 06/04/18 09:47 Hem Pathologist Commnt No 06/04/18 09:47 PT 16.6 Sec. (12.2-14.9) H 06/18/18 05:06 INR 1.26 (0.87-1.13) H 06/18/18 05:06 POC ABG pH 7.381 (7.35-7.45) 06/20/18 11:51 POC ABG pCO2 44.7 (35-45) 06/20/18 11:51 POC ABG pO2 86 (80-105) 06/20/18 11:51 POC ABG HCO3 26.5 (22-26 mml/L) 06/20/18 11:51 POC ABG Total CO2 28 (23-27mmol/L) 06/20/18 11:51 POC ABG O2 Sat 96 06/20/18 11:51 POC ABG Base Excess 1 ((-2) - (+3)mmol/L) 06/20/18 11:51 FiO2 3 % 06/20/18 11:51 Sodium 135 mmol/L (137-145) L 06/22/18 05:11 Potassium 5.0 mmol/L (3.6-5.0) D 06/22/18 05:11 Chloride 101.7 mmol/L (98-107) 06/22/18 05:11 Carbon Dioxide 25 mmol/L (22-30) 06/22/18 05:11 Anion Gap 13 mmol/L 06/22/18 05:11 BUN 10 mg/dL (9-20) 06/22/18 05:11 Creatinine 0.4 mg/dL (0.8-1.5) L 06/22/18 05:11 Estimated GFR > 60 ml/min 06/22/18 05:11 BUN/Creatinine Ratio 25 % 06/22/18 05:11 Glucose 120 mg/dL (75-100) H 06/22/18 05:11 POC Glucose 110 (70-105) H 06/22/18 11:56 Osmolality 312 Mosm/kg 06/18/18 11:19 Uric Acid 3.5 mg/dL (3.5-7.6) 06/18/18 11:19 Calcium 7.3 mg/dL (8.4-10.2) L 06/22/18 05:11 Phosphorus 2.40 mg/dL (2.5-4.5) L D 06/22/18 05:11 Magnesium 2.30 mg/dL (1.7-2.3) 06/22/18 05:11 Total Bilirubin 1.00 mg/dL (0.1-1.2) 06/17/18 08:21 Direct Bilirubin < 0.2 mg/dL (0-0.2) 06/04/18 04:39 Indirect Bilirubin 0.2 mg/dL 06/04/18 04:39 AST 26 units/L (5-40) 06/17/18 08:21 ALT 30 units/L (7-56) 06/17/18 08:21 Alkaline Phosphatase 49 units/L (35-129) 06/17/18 08:21 Ammonia 55.0 umol/L (25-60) 06/16/18 17:33 Total Creatine Kinase 420 units/L (55-170) H 06/02/18 21:25 Troponin T < 0.010 ng/mL (0.00-0.029) 06/02/18 21:25 NT-Pro-B Natriuret Pep 379.8 pg/mL (0-900) 06/02/18 21:25 Total Protein 5.2 g/dL (6.3-8.2) L 06/17/18 08:21 Albumin 2.9 g/dL (3.9-5) L 06/17/18 08:21 Albumin/Globulin Ratio 1.3 % 06/17/18 08:21 Vitamin B12 697.5 pg/mL (211-911) 06/16/18 17:33 TSH 1.100 mlU/mL (0.270-4.200) 06/03/18 20:45 Urine Color Yellow (Yellow) 06/16/18 03:20 Urine Turbidity Cloudy (Clear) 06/16/18 03:20 Urine pH 5.0 (5.0-7.0) 06/16/18 03:20 Ur Specific [place] 1.020 (1.003-1.030) 06/16/18 03:20 Urine Protein <15 mg/dl mg/dL (Negative) 06/16/18 03:20 Urine Glucose (UA) Neg mg/dL (Negative) 06/16/18 03:20 Urine Ketones Neg mg/dL (Negative) 06/16/18 03:20 Urine Blood Sm (Negative) 06/16/18 03:20 Urine Nitrite Neg (Negative) 06/16/18 03:20 Urine Bilirubin Neg (Negative) 06/16/18 03:20 Urine Urobilinogen < 2.0 mg/dL (<2.0) 06/16/18 03:20 Ur Leukocyte Esterase Lg (Negative) 06/16/18 03:20 Urine WBC (Auto) 89.0 /HPF (0.0-6.0) H 06/16/18 03:20 Urine RBC (Auto) 10.0 /HPF (0.0-6.0) 06/16/18 03:20 U Epithel Cells (Auto) 2.0 /HPF (0-13.0) 06/16/18 03:20 Urine Bacteria (Auto) 1+ /HPF (Negative) 06/16/18 03:20 Urine Mucus Few /HPF 06/16/18 03:20 Urine Yeast (Budding) 1+ /HPF 06/16/18 03:20 Urine Osmolality 203 Mosm/kg 06/02/18 22:02 Urine Sodium 66 mmol/L 06/18/18 10:05 RPR Nonreactive (Nonreactive) 06/16/18 17:33 Active Medications - Current Medications Current Medications: Generic Name Dose Route Start Last Admin Trade Name Freq PRN Reason Stop Dose Admin Acetaminophen 650 mg 06/03/18 00:05 06/22/18 04:37 Tylenol PO 650 mg Q4H PRN Administration Pain MILD(1-3)/Fever >100.5/CHANCE Acetaminophen 650 mg 06/16/18 15:03 06/19/18 07:46 Tylenol [place] 650 mg Q4H PRN Administration Non Cardiac Pain or Temp>100.5 Albuterol 2.5 mg 06/03/18 13:11 06/03/18 15:01 Proventil IH 2.5 mg Q4HRT PRN Administration Shortness Of Breath Albuterol/Ipratropium 1 ampul 06/05/18 20:00 06/23/18 20:02 Duoneb *Not For Prn Use* IH Not Given TIDRT CINDA Lipase/Protease/Amylase 1 each 06/20/18 14:55 Pancreradha Salomon 10,500 Unit FEEDTUBE PRN PRN For Clogged Feeding Tube Arformoterol Tartrate 15 mcg 06/03/18 20:00 06/23/18 20:00 Brovana Nebu IH 15 mcg Q12HRT CINDA Administration Budesonide 0.5 mg 06/03/18 20:00 06/23/18 20:00 Pulmicort IH 0.5 mg Q12HRT CINDA Administration Clonidine HCl 0.1 mg 06/11/18 22:00 06/23/18 21:51 Catapres PO 0.1 mg HS CIDNA Administration Enoxaparin Sodium 40 mg 06/03/18 10:00 06/23/18 10:43 Lovenox SUB-Q 40 mg QDAY@1000 CINDA Administration Folic Acid 1 mg 06/04/18 10:00 06/23/18 10:42 Folvite PO 1 mg QDAY CINDA Administration Haloperidol Lactate 5 mg 06/09/18 09:51 06/20/18 09:27 Haldol IM 5 mg Q6H PRN Administration Acute Psychosis Hydralazine HCl 10 mg 06/06/18 12:10 06/09/18 14:26 Apresoline IV 10 mg Q4H PRN Administration BP >160/100 Cefepime HCl 2 gm in 100 mls @ 200 mls/hr 06/20/18 22:00 06/23/18 10:40 Maxipime/Ns 2 Gm/100 Ml IV 200 mls/hr Q12HR CINDA Administration Protocol Vancomycin HCl 750 mg/ Sodium 265 mls @ 166.667 mls/hr 06/21/18 18:00 06/23/18 20:28 Chloride IV 166.667 mls/hr Q24H CINDA Administration Lorazepam 2 mg 06/03/18 14:00 06/23/18 15:05 Ativan PO 2 mg Q1H PRN Administration CIWA-Ar 8-15 Lorazepam 4 mg 06/03/18 14:00 06/20/18 11:01 Ativan IV 4 mg Q1H PRN Administration CIWA-Ar 16-25 Lorazepam 4 mg 06/03/18 14:00 Ativan IV Q15MIN PRN CIWA-Ar >25 Melatonin 5 mg 06/07/18 19:41 06/10/18 23:30 Melatonin PO 5 mg QHS PRN Administration Sleep Metoprolol Tartrate 5 mg 06/21/18 11:22 Lopressor IV Q6H PRN sustained HR > 130 Metoprolol Tartrate 12.5 mg 06/21/18 22:00 06/23/18 21:49 Lopressor PO 12.5 mg BID CINDA Administration Mirtazapine 15 mg 06/10/18 22:00 06/23/18 21:49 Remeron PO 15 mg QHS CINDA Administration Morphine Sulfate 2 mg 06/19/18 13:47 06/23/18 10:39 Morphine IV 2 mg Q3H PRN Administration Pain, Moderate (4-6) Multivitamins 5 ml 06/04/18 10:00 06/23/18 10:42 Centrum Liq PO 5 ml QDAY CINDA Administration Ondansetron HCl 4 mg 06/03/18 00:05 Zofran IV Q8H PRN Nausea And Vomiting Pantoprazole Sodium 40 mg 06/06/18 10:00 06/23/18 10:43 Protonix PO 40 mg DAILY CINDA Administration Simple Syrup 15 ml 06/20/18 14:55 Simple Syrup FEEDTUBE PRN PRN Hypoglycemia Simple Syrup 30 ml 06/20/18 14:55 Simple Syrup FEEDTUBE PRN PRN Hypoglycemia Sodium Bicarbonate 325 mg 06/20/18 14:55 Sodium Bicarbonate FEEDTUBE PRN PRN For Clogged Feeding Tube Sodium Chloride 10 ml 06/03/18 10:00 06/23/18 21:51 Sodium Chloride Flush Syringe 10 Ml IV 10 ml BID CINDA Administration Sodium Chloride 10 ml 06/03/18 00:05 Sodium Chloride Flush Syringe 10 Ml IV PRN PRN LINE FLUSH Tamsulosin HCl 0.4 mg 06/03/18 12:00 06/23/18 10:42 Flomax PO 0.4 mg QDAY CINDA Administration Thiamine HCl 100 mg 06/04/18 10:00 06/23/18 10:44 Vitamin B-1 PO 100 mg QDAY CINDA Administration Nutrition/Malnutrition Assess - Dietary Evaluation Nutrition/Malnutrition Findings: Nutrition Notes Start: 06/09/18 14:29 Freq: Status: Active Protocol: Document 06/23/18 14:10 RM (Rec: 06/23/18 14:20 [id number]) Nutrition Notes Initial or Follow up Reassessment Current Diagnosis COPD,Hypertension,Heart Failure Other Pertinent Diagnosis Alcoholic Hx, AMS, UTI, Dementia, Metabolic encephalopathy Current Diet Osmolite 1.5 at 55 ml/hr Labs/Tests K 5 Pertinent Medications Reviewed Height 5 ft 10 in Weight 57.2 kg [place] Body Weight (kg) 75.45 BMI 18.1 Subjective/Other Information Observed Osmolite 1.5 infusing at 55 ml/hr. Percent of energy/protein needs met: 100%/100% Burn Absent Trauma Absent #1 Nutrition Diagnosis Inadequate oral intake Diagnosis Progress(for reassessment Continues documentation) Is patient on ventilator? No Is Patient Ambulatory and/or Out of Bed No REE-([place]-confined to bed) 1594.224 Kcal/Kg value to use for calculation 32 Approximate Energy Requirements Using 1830 kcal/Kg Calculation Used for Recommendations Kcal/kg Additional Notes Protein Needs: 61-73g (1-1.2g/ kg) Fluid Needs: 1 ml/kcal Nutrition Intervention Nutrition Support: Osmolite 1.5 at 55 ml/hr Water Flush 150ml q4h. Kcal 1,980 Protein (gm) 82 Fluid (mL) 1,005 Goal #1 TF consult Anticipated Discharge Needs: Unable to determine at this time Follow-Up By: 06/25/18 Additional Comments Follow for TF tolerance, K lab
[2018-06-24 00:51] LABS: Basophils % (Auto) 0.3 % (0.0-1.8); Eosinophils # (Auto) 0.1 K/mm3 (0.0-0.4); Eosinophils % (Auto) 2.4 % (0.0-4.3); Hematocrit 29.3 % (35.5-45.6); Lymphocytes # (Auto) 0.7 K/mm3 (1.2-5.4); Lymphocytes % (Auto) 14.4 % (13.4-35.0); Mean Corpuscular HGB Conc 34 % (32-34); Mean Corpuscular Volume 98 fl (84-94); Monocytes # (Auto) 0.3 K/mm3 (0.0-0.8); Monocytes % (Auto) 6.4 % (0.0-7.3); Platelet Count 120 K/mm3 (140-440); Red Blood Count 2.99 M/mm3 (3.65-5.03); Red Cell Distribution Width 13.1 % (13.2-15.2)
[2018-06-24 07:25] LABS: BUN/Creatinine Ratio 37; Blood Urea Nitrogen 11 mg/dL (9-20); Calcium 7.5 mg/dL (8.4-10.2); Hemolysis Index 16
[2018-06-24] MEDS: PULMICORT IH SCH ×2 (08:29→21:36)
[2018-06-24] MEDS: BROVANA NEBU IH SCH ×2 (08:29→21:35)
[2018-06-24] MEDS: DUONEB *Not for PRN Use IH SCH ×3 (08:29→21:36)
[2018-06-24] MEDS: ATIVAN PO PRN ×3 (08:48→22:10)
--- NOTE | 2018-06-24 09:01 | Progress Note ---
Assessment and Plan Impression * Acute hyponatremia * COPD * Alcohol abuse Recommendations * Patient's serum sodium noted to be slightly lower at 132 today . * Reduce water flush with tube feeds to 50 mL * Urine sodium was 20 and urine osmolality is 203 . 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 Hyponatremia may be due to liver disease as well * Continue free water restriction * Shall follow patient peripherally Subjective Date of service: 06/24/18 Principal diagnosis: PEG placement Interval history: Patient remains confused. Currently in wrist restraints. Dobbhoff tube in place. Comfortable. Objective - Vital Signs Vital signs: Vital Signs - 12hr 06/23/18 06/23/18 06/23/18 21:00 21:49 22:00 Temperature Pulse Rate 80 76 76 Pulse Rate [ Throughout] Respiratory 25 H 21 Rate Respiratory Rate [ Throughout] Blood Pressure 136/68 130/68 131/73 O2 Sat by Pulse 98 96 Oximetry 06/23/18 06/23/18 06/24/18 22:52 23:00 00:00 Temperature 99.5 F Pulse Rate 72 71 70 Pulse Rate [ Throughout] Respiratory 25 H 28 H Rate Respiratory Rate [ Throughout] Blood Pressure 131/73 120/81 O2 Sat by Pulse 97 96 Oximetry 06/24/18 06/24/18 06/24/18 01:00 02:00 03:00 Temperature Pulse Rate 72 75 77 Pulse Rate [ Throughout] Respiratory 32 H 21 25 H Rate Respiratory Rate [ Throughout] Blood Pressure 140/72 139/83 146/67 O2 Sat by Pulse 98 95 96 Oximetry 06/24/18 06/24/18 06/24/18 04:00 05:00 06:01 Temperature Pulse Rate 70 74 75 Pulse Rate [ Throughout] Respiratory 16 22 23 Rate Respiratory Rate [ Throughout] Blood Pressure 136/76 140/75 165/75 O2 Sat by Pulse 98 97 96 Oximetry 06/24/18 06/24/18 06/24/18 07:00 08:00 08:31 Temperature 98.8 F Pulse Rate 69 63 Pulse Rate [ 96 H Throughout] Respiratory 20 17 Rate Respiratory 28 H Rate [ Throughout] Blood Pressure 159/70 159/75 O2 Sat by Pulse 98 99 98 Oximetry - General Appearance General appearance: chronically ill, frail EENT: PERRL, mucous membranes moist Neck: no JVD, no thyromegaly, no carotid bruit, supple Respiratory: Present: Clear to Ascultation Cardiology: regular, normal heart rate, S1S2, no murmurs Gastrointestinal: normal, normoactive bowel sounds, other (Barahona catheter in place) - Lab 06/24/18 00:39 06/24/18 05:00 Most recent lab results Calcium 7.5 mg/dL (8.4-10.2) L 06/24/18 05:00 Phosphorus 2.40 mg/dL (2.5-4.5) L D 06/22/18 05:11 Magnesium 2.30 mg/dL (1.7-2.3) 06/22/18 05:11 66 mmol/L 06/18/18 10:05 Medications & Allergies - Medications Allergies/Adverse Reactions: Allergies diphenhydramine HCl [From Benadryl] Allergy (Verified 09/24/14 11:56) Unknown HALLUCINATIONS Home Medications: Home Medications Medication Instructions Recorded Confirmed Last Taken Type Albuterol *Only Ed* [Proventil 2.5 mg IH Q4HRT PRN #1 nebu 10/03/14 06/03/18 Unknown Rx 0.5% NEBS] Folic Acid [Folvite] 1 mg PO QDAY #30 tablet 10/03/14 06/03/18 Unknown Rx Furosemide [Lasix TAB] 20 mg PO QDAY #30 tablet 10/03/14 06/03/18 Unknown Rx Metoprolol [Lopressor TAB] 12.5 mg PO BID #60 tablet 10/03/14 06/03/18 Unknown Rx Multivitamins Liq [Multiple 5 ml PO QDAY 30 Days oral.liqd 10/03/14 06/03/18 Unknown Rx Vitamin Liq (Theragran)] Thiamine [Vitamin B-1] 100 mg PO QDAY #30 tablet 10/03/14 06/03/18 Unknown Rx Active Medications: Generic Name Dose Route Start Last Admin Trade Name Freq PRN Reason Stop Dose Admin Acetaminophen 650 mg 06/03/18 00:05 06/22/18 04:37 Tylenol PO 650 mg Q4H PRN Administration Pain MILD(1-3)/Fever >100.5/CHANCE Acetaminophen 650 mg 06/16/18 15:03 06/19/18 07:46 Tylenol [place] 650 mg Q4H PRN Administration Non Cardiac Pain or Temp>100.5 Albuterol 2.5 mg 06/03/18 13:11 06/03/18 15:01 Proventil IH 2.5 mg Q4HRT PRN Administration Shortness Of Breath Albuterol/Ipratropium 1 ampul 06/05/18 20:00 06/24/18 08:29 Duoneb *Not For Prn Use* IH 1 ampul TIDRT CINDA Administration Lipase/Protease/Amylase 1 each 06/20/18 14:55 Pancreradha Salomon 10,500 Unit FEEDTUBE PRN PRN For Clogged Feeding Tube Arformoterol Tartrate 15 mcg 06/03/18 20:00 06/24/18 08:29 Brovana Nebu IH 15 mcg Q12HRT CINDA Administration Budesonide 0.5 mg 06/03/18 20:00 06/24/18 08:29 Pulmicort IH 0.5 mg Q12HRT CINDA Administration Clonidine HCl 0.1 mg 06/11/18 22:00 06/23/18 21:51 Catapres PO 0.1 mg HS CINDA Administration Enoxaparin Sodium 40 mg 06/03/18 10:00 06/23/18 10:43 Lovenox SUB-Q 40 mg QDAY@1000 CINDA Administration Folic Acid 1 mg 06/04/18 10:00 06/23/18 10:42 Folvite PO 1 mg QDAY CINDA Administration Haloperidol Lactate 5 mg 06/09/18 09:51 06/20/18 09:27 Haldol IM 5 mg Q6H PRN Administration Acute Psychosis Hydralazine HCl 10 mg 06/06/18 12:10 06/09/18 14:26 Apresoline IV 10 mg Q4H PRN Administration BP >160/100 Cefepime HCl 2 gm in 100 mls @ 200 mls/hr 06/20/18 22:00 06/23/18 22:11 Maxipime/Ns 2 Gm/100 Ml IV 200 mls/hr Q12HR CINDA Administration Protocol Vancomycin HCl 750 mg/ Sodium 265 mls @ 166.667 mls/hr 06/21/18 18:00 08/06 20:28 Chloride IV 166.667 mls/hr Q24H CINDA Administration Lorazepam 2 mg 06/03/18 14:00 06/24/18 08:48 Ativan PO 2 mg Q1H PRN Administration CIWA-Ar 8-15 Lorazepam 4 mg 06/03/18 14:00 06/20/18 11:01 Ativan IV 4 mg Q1H PRN Administration CIWA-Ar 16-25 Lorazepam 4 mg 06/03/18 14:00 Ativan IV Q15MIN PRN CIWA-Ar >25 Melatonin 5 mg 06/07/18 19:41 06/10/18 23:30 Melatonin PO 5 mg QHS PRN Administration Sleep Metoprolol Tartrate 5 mg 06/21/18 11:22 Lopressor IV Q6H PRN sustained HR > 130 Metoprolol Tartrate 12.5 mg 06/21/18 22:00 06/23/18 21:49 Lopressor PO 12.5 mg BID CINDA Administration Mirtazapine 15 mg 06/10/18 22:00 06/23/18 21:49 Remeron PO 15 mg QHS CINDA Administration Morphine Sulfate 2 mg 06/19/18 13:47 06/23/18 10:39 Morphine IV 2 mg Q3H PRN Administration Pain, Moderate (4-6) Multivitamins 5 ml 06/04/18 10:00 06/23/18 10:42 Centrum Liq PO 5 ml QDAY CINDA Administration Ondansetron HCl 4 mg 06/03/18 00:05 Zofran IV Q8H PRN Nausea And Vomiting Pantoprazole Sodium 40 mg 06/06/18 10:00 06/23/18 10:43 Protonix PO 40 mg DAILY CINDA Administration Simple Syrup 15 ml 06/20/18 14:55 Simple Syrup FEEDTUBE PRN PRN Hypoglycemia Simple Syrup 30 ml 06/20/18 14:55 Simple Syrup FEEDTUBE PRN PRN Hypoglycemia Sodium Bicarbonate 325 mg 06/20/18 14:55 Sodium Bicarbonate FEEDTUBE PRN PRN For Clogged Feeding Tube Sodium Chloride 10 ml 06/03/18 10:00 06/23/18 21:51 Sodium Chloride Flush Syringe 10 Ml IV 10 ml BID CINDA Administration Sodium Chloride 10 ml 06/03/18 00:05 Sodium Chloride Flush Syringe 10 Ml IV PRN PRN LINE FLUSH Tamsulosin HCl 0.4 mg 06/03/18 12:00 06/23/18 10:42 Flomax PO 0.4 mg QDAY CINDA Administration Thiamine HCl 100 mg 06/04/18 10:00 06/23/18 10:44 Vitamin B-1 PO 100 mg QDAY CINDA Administration
[2018-06-24] MEDS: LOVENOX SUB-Q SCH (09:34)
[2018-06-24] MEDS: FLOMAX PO SCH (09:34)
[2018-06-24] MEDS: LOPRESSOR PO SCH ×2 (09:34→22:07)
[2018-06-24] MEDS: VITAMIN B-1 PO SCH (09:35)
[2018-06-24] MEDS: Centrum Liq PO SCH (09:35)
[2018-06-24] MEDS: MAXIPIME/NS 2 GM/100 ML 2 GM/100 ML BAG IV SCH ×2 (09:35→22:06)
[2018-06-24] MEDS: PROTONIX PO SCH (09:35)
[2018-06-24] MEDS: FOLVITE PO SCH (09:35)
[2018-06-24] MEDS: SODIUM CHLORIDE FLUSH SYRINGE 10 ML IV SCH ×2 (09:37→22:13)
--- NOTE | 2018-06-24 12:01 | Progress Note ---
Assessment and Plan Cultures: Blood culture 06/13/2018 no growth Blood culture: 06/19/2018: no growth in 24 hours Urine culture grew multiple sp <10 Urine culture 06/16/2018 10-100K Enterococcus. Assessment: 72 y/o male with history of alcoholism,tobacco use, COPD and dementia admitted on 06/02/2018 due to AMS/confusion: 1) Sepsis: Resolved. Etiology most likely UTI., +/- drug fever. CXR negative. Blood culture 06/13/2018 no growth. Repeat blood culture no growth thus far. Discontinue unasyn to r/o possible drug fever. Continue Vancomycin and Cefepime. 2) UTI: mild UTI present on admission, however worsening. UA showed wbc 24, large LE. Urine culture grew multiple sp <10. A zuniga was placed and then removed. Repeat UA showed wbc 89, large LE. Urine culture 06/16/2018 10-100K Enterococcus. Abdominal US shows no evidence of hydronephrosis. The urinary bladder appears distended, but smooth in contour. No evidence of gallstones or cholecystitis. Abdominal CT shows no obstructive pattern. 3) Acute on chronic encephalopathy: multifactorial- dementia, ETOH, hyponatremia and UTI. Brain MRI shows global cortical atrophy and otherwise negative. No evidence of acute/subacute infarct or hemorrhage. 4) Acute urinary retention: Improved. Zuniga catheter 5) Hyponatremia: Improved. 6) Severe malnutrition: failed swallow study, Feeding tube placed. 7) Acute Respiratory Failure: probably related to COPD exacerbation. On 4L/NC. Recommendations: continue vancomyin and cefepime, D4 of D5 -f/u blood cultures [facility] M: [phone] O:[phone] Subjective Date of service: 06/24/18 Principal diagnosis: PEG placement Interval history: Patient seen and examined. Calm today, no acute distress observed. Objective - Exam Narrative Exam: General appearance: Awake. Alert. Calm Cachexia. Eyes: anicteric sclerae, moist conjunctivae; no lid-lag; PERRLA HENT: Atraumatic; oropharynx limited. + NGT Neck: Trachea midline; supple, no thyromegaly or lymphadenopathy Lungs: CTA CV: tachycardic Abdomen: Soft, +bowel sounds, no tenderness on exam Extremities: No peripheral edema or extremity lymphadenopathy Skin: no rash or abscess Psych: calm Neuro: Awake, Alert. Calm. - Constitutional Vitals: Vital Signs Temp Pulse Resp BP Pulse Ox 98.8 F 75 28 H 151/71 98 06/24/18 08:00 06/24/18 09:00 06/24/18 09:00 06/24/18 09:00 06/24/18 09:00 Temperature -Last 24 Hours Temperature 98.8 F Temperature 99.5 F Temperature 98.0 F Temperature 98.4 F - Labs CBC & Chem 7: 06/24/18 00:39 06/24/18 05:00 Labs: Abnormal lab results 06/24/18 06/24/18 Range/Units 00:39 05:00 RBC 2.99 L (3.65-5.03) M/mm3 Hgb 10.0 L (11.8-15.2) gm/dl Hct 29.3 L (35.5-45.6) % MCV 98 H (84-94) fl MCH 34 H (28-32) pg RDW 13.1 L (13.2-15.2) % Plt Count 120 L (140-440) K/mm3 Lymph # 0.7 L (1.2-5.4) K/mm3 Seg Neutrophils % 76.5 H (40.0-70.0) % Sodium 132 L (137-145) mmol/L Creatinine 0.3 L (0.8-1.5) mg/dL Glucose 119 H (75-100) mg/dL Calcium 7.5 L (8.4-10.2) mg/dL
--- NOTE | 2018-06-24 12:31 | Gastroenterology Progress Note ---
Assessment and Plan 1.PEG placement -Oropharyngeal dysphagia -currently tolerating TFs via Dobhoff -will order abd CT to r/o cirrhosis/varices given hx of ETOH abuse and low plt prior to PEG placement -will tentatively schedule EGD/PEG tomorrow pending CT results -NPO after MN -INR in am (hold am dose of lovenox) -continue supportive care -will follow Subjective Date of service: 06/24/18 Principal diagnosis: PEG placement Interval history: No acute distress. Tolerating TFs via Dobhoff. Objective - Constitutional Vitals: Temp Pulse Resp BP Pulse Ox 98.8 F 75 28 H 151/71 98 06/24/18 08:00 06/24/18 09:00 06/24/18 09:00 06/24/18 09:00 06/24/18 09:00 General appearance: no acute distress - Respiratory Respiratory: bilateral: diminished - Cardiovascular Rhythm: regular - Gastrointestinal General gastrointestinal: Present: soft, non-distended, normal bowel sounds - Labs CBC & Chem 7: 06/24/18 00:39 06/24/18 05:00 Labs: Laboratory Results - last 24 hr 06/24/18 06/24/18 00:39 05:00 WBC 5.2 RBC 2.99 L Hgb 10.0 L Hct 29.3 L MCV 98 H MCH 34 H MCHC 34 RDW 13.1 L Plt Count 120 L Lymph % (Auto) 14.4 [place] % (Auto) 6.4 Eos % (Auto) 2.4 Baso % (Auto) 0.3 Lymph # 0.7 L [place] # 0.3 Eos # 0.1 Baso # 0.0 Seg Neutrophils % 76.5 H Seg Neutrophils # 4.0 Sodium 132 L Potassium 4.4 Chloride 98.5 Carbon Dioxide 27 Anion Gap 11 BUN 11 Creatinine 0.3 L Estimated GFR > 60 BUN/Creatinine Ratio 37 Glucose 119 H Calcium 7.5 L
--- NOTE | 2018-06-24 13:40 | Progress Note ---
Assessment and Plan Assessment and plan: 72-year-old man with history of alcoholism and likely dementia which has not been diagnosed with suspected by family. The patient's and he was dependent on her past the week 2 weeks prior. He was home by himself, is apparently drinking heavily not eating and not. He had been confused per his son and neighbors. His son and asked him to go to the ER , then he called the EMS. The patient was found to have a very low sodium, agitated and confused. CT head no acute findings Chest x-ray no acute findings -The patient is on [facility] protocol for alcohol withdrawal. He is now out of the window for alcohol withdrawal -He was counseled on tobacco cessation, time spent greater than 10 minutes -The patient was initially very hyponatremic when he came to the hospital, he received saline IV, salt tabs and his potassium was replaced. -The patient developed urinary retention, therefore [place] catheter placed -He received a course of steroids and nebulizers for COPD exacerbation, now improved. -he had very poor by mouth intake, he was only taking sips of drinks some barely consuming any food. He received dietitian consult, SS consult revealed severe dysphagia, now NPO pending PEG tube -The patient has waxing and waning mental status, due to dementia -echo shows preserved ef, went into RVR then put on rate control meds, cardiology consult appreciated, chads-vasc score is 1, will be on aspirin for cva ppx, case dw tire specialist -cont abx for UTI- e fecalis, for total 5 days ending 06-20-18 -Patient now developed some hypernatremia from free water deficit, continue D5 water, plan for PEG tube, son has given consent, planned for Saturday -06/20; was agitated and in rapid afib, gave IV metoprolol, placed NGT to cont meds, received ativan per [facility] protocol then became hypotensive, IVF and press ors, transfer to [facility] -06/21; improving, weaning off pressors, K was repleted -he is pending G tube, GI would like to wait a few days to do the procedure -dc to SNF with hospice when improved Diagnoses Afib with RVR, PAF hypotension, likely 2/2 ativan administration hypercoaguable state Alcohol dependence and withdrawal Acute metabolic encephalopathy Severe hyponatremia, now resolved mild hypernatremia- d5w drip Hypercholesteremia Beer potomania severe malnutrition COPD exacerbation Tobacco abuse, current every day smoker Acute hypoxic respiratory failure Dementia severe malnutrition Sepsis UTI -Urinary retention/obstructive uropathy History Interval history: Patient was seen and evaluated this morning, patient is mumbling and couldn't understand what he said. Hospitalist Physical - Physical exam Narrative exam: Not in cardiopulmonary distress. The patient is emaciated. Vital signs as documented. Head exam is unremarkable. No scleral icterus . Neck is without jugular venous distension, thyromegaly, or carotid bruits. Lungs are clear to auscultation. Cardiac exam reveals regular rate and Rhythm. Abdominal exam reveals normal bowel sounds. Extremities are nonedematous and both femoral and pedal pulses are normal. MEDICAL IMAGING TECH: Alert. - Constitutional Vitals: Temp Pulse Resp BP Pulse Ox 97 F L 66 26 H 154/71 100 06/24/18 12:00 06/24/18 12:01 06/24/18 12:01 06/24/18 12:01 06/24/18 12:01 General appearance: Present: no acute distress, cachectic, other (lethargic) Results - Labs CBC & Chem 7: 06/24/18 00:39 06/24/18 05:00 Labs: Laboratory Last Values WBC 5.2 K/mm3 (4.5-11.0) 06/24/18 00:39 RBC 2.99 M/mm3 (3.65-5.03) L 06/24/18 00:39 Hgb 10.0 gm/dl (11.8-15.2) L 06/24/18 00:39 Hct 29.3 % (35.5-45.6) L 06/24/18 00:39 MCV 98 fl (84-94) H 06/24/18 00:39 MCH 34 pg (28-32) H 06/24/18 00:39 MCHC 34 % (32-34) 06/24/18 00:39 RDW 13.1 % (13.2-15.2) L 06/24/18 00:39 Plt Count 120 K/mm3 (140-440) L 06/24/18 00:39 Lymph % (Auto) 14.4 % (13.4-35.0) 06/24/18 00:39 [place] % (Auto) 6.4 % (0.0-7.3) 06/24/18 00:39 Eos % (Auto) 2.4 % (0.0-4.3) 06/24/18 00:39 Baso % (Auto) 0.3 % (0.0-1.8) 06/24/18 00:39 Lymph # 0.7 K/mm3 (1.2-5.4) L 06/24/18 00:39 [place] # 0.3 K/mm3 (0.0-0.8) 06/24/18 00:39 Eos # 0.1 K/mm3 (0.0-0.4) 06/24/18 00:39 Baso # 0.0 K/mm3 (0.0-0.1) 06/24/18 00:39 Add Manual Diff Complete 06/04/18 09:47 Total Counted 100 06/04/18 09:47 Seg Neutrophils % 76.5 % (40.0-70.0) H 06/24/18 00:39 Seg Neuts % (Manual) 92.0 % (40.0-70.0) H 06/04/18 09:47 0 % 06/04/18 09:47 5.0 % (13.4-35.0) L 06/04/18 09:47 Reactive Lymphs % (Man) 0 % 06/04/18 09:47 3.0 % (0.0-7.3) 06/04/18 09:47 0 % (0.0-4.3) 06/04/18 09:47 0 % (0.0-1.8) 06/04/18 09:47 0 % 06/04/18 09:47 0 % 06/04/18 09:47 0 % 06/04/18 09:47 0 % 06/04/18 09:47 Nucleated RBC % Not Reportable 06/04/18 09:47 Seg Neutrophils # 4.0 K/mm3 (1.8-7.7) 06/24/18 00:39 Seg Neutrophils # Man 4.9 K/mm3 (1.8-7.7) 06/04/18 09:47 Band Neutrophils # 0.0 K/mm3 06/04/18 09:47 0.3 K/mm3 (1.2-5.4) L 06/04/18 09:47 Abs React Lymphs (Man) 0.0 K/mm3 06/04/18 09:47 0.2 K/mm3 (0.0-0.8) 06/04/18 09:47 0.0 K/mm3 (0.0-0.4) 06/04/18 09:47 0.0 K/mm3 (0.0-0.1) 06/04/18 09:47 0.0 K/mm3 06/04/18 09:47 0.0 K/mm3 06/04/18 09:47 0.0 K/mm3 06/04/18 09:47 Blast Cells # 0.0 K/mm3 06/04/18 09:47 WBC Morphology Not Reportable 06/04/18 09:47 Hypersegmented Neuts Not Reportable 06/04/18 09:47 Hyposegmented Neuts Not Reportable 06/04/18 09:47 Hypogranular Neuts Not Reportable 06/04/18 09:47 Not Reportable 06/04/18 09:47 1+ 06/04/18 09:47 Not Reportable 06/04/18 09:47 Not Reportable 06/04/18 09:47 Not Reportable 06/04/18 09:47 Not Reportable 06/04/18 09:47 Consistent w auto 06/04/18 09:47 Not Reportable 06/04/18 09:47 Plt Clumps, EDTA Not Reportable 06/04/18 09:47 Not Reportable 06/04/18 09:47 Not Reportable 06/04/18 09:47 Not Reportable 06/04/18 09:47 Plt Morphology Comment Not Reportable 06/04/18 09:47 RBC Morphology Normal 06/04/18 09:47 Dimorphic RBCs Not Reportable 06/04/18 09:47 Not Reportable 06/04/18 09:47 Not Reportable 06/04/18 09:47 Not Reportable 06/04/18 09:47 Not Reportable 06/04/18 09:47 Not Reportable 06/04/18 09:47 Not Reportable 06/04/18 09:47 Not Reportable 06/04/18 09:47 Not Reportable 06/04/18 09:47 Not Reportable 06/04/18 09:47 Not Reportable 06/04/18 09:47 Not Reportable 06/04/18 09:47 Not Reportable 06/04/18 09:47 Not Reportable 06/04/18 09:47 Not Reportable 06/04/18 09:47 Not Reportable 06/04/18 09:47 Not Reportable 06/04/18 09:47 Not Reportable 06/04/18 09:47 Not Reportable 06/04/18 09:47 Not Reportable 06/04/18 09:47 Acanthocytes (Spur) Not Reportable 06/04/18 09:47 Rouleaux Not Reportable 06/04/18 09:47 Not Reportable 06/04/18 09:47 Not Reportable 06/04/18 09:47 Not Reportable 06/04/18 09:47 Not Reportable 06/04/18 09:47 Hem Pathologist Commnt No 06/04/18 09:47 PT 16.6 Sec. (12.2-14.9) H 06/18/18 05:06 INR 1.26 (0.87-1.13) H 06/18/18 05:06 POC ABG pH 7.381 (7.35-7.45) 06/20/18 11:51 POC ABG pCO2 44.7 (35-45) 06/20/18 11:51 POC ABG pO2 86 (80-105) 06/20/18 11:51 POC ABG HCO3 26.5 (22-26 mml/L) 06/20/18 11:51 POC ABG Total CO2 28 (23-27mmol/L) 06/20/18 11:51 POC ABG O2 Sat 96 06/20/18 11:51 POC ABG Base Excess 1 ((-2) - (+3)mmol/L) 06/20/18 11:51 3 % 06/20/18 11:51 Sodium 132 mmol/L (137-145) L 06/24/18 05:00 Potassium 4.4 mmol/L (3.6-5.0) 06/24/18 05:00 Chloride 98.5 mmol/L (98-107) 06/24/18 05:00 Carbon Dioxide 27 mmol/L (22-30) 06/24/18 05:00 11 mmol/L 06/24/18 05:00 BUN 11 mg/dL (9-20) 06/24/18 05:00 0.3 mg/dL (0.8-1.5) L 06/24/18 05:00 Estimated GFR > 60 ml/min 06/24/18 05:00 37 % 06/24/18 05:00 Glucose 119 mg/dL (75-100) H 06/24/18 05:00 POC Glucose 110 (70-105) H 06/22/18 11:56 312 Mosm/kg 06/18/18 11:19 3.5 mg/dL (3.5-7.6) 06/18/18 11:19 Calcium 7.5 mg/dL (8.4-10.2) L 06/24/18 05:00 Phosphorus 2.40 mg/dL (2.5-4.5) L D 06/22/18 05:11 Magnesium 2.30 mg/dL (1.7-2.3) 06/22/18 05:11 1.00 mg/dL (0.1-1.2) 06/17/18 08:21 < 0.2 mg/dL (0-0.2) 06/04/18 04:39 0.2 mg/dL 06/04/18 04:39 AST 26 units/L (5-40) 06/17/18 08:21 ALT 30 units/L (7-56) 06/17/18 08:21 49 units/L (35-129) 06/17/18 08:21 55.0 umol/L (25-60) 06/16/18 17:33 420 units/L (55-170) H 06/02/18 21:25 < 0.010 ng/mL (0.00-0.029) 06/02/18 21:25 NT-Pro-B Natriuret Pep 379.8 pg/mL (0-900) 06/02/18 21:25 5.2 g/dL (6.3-8.2) L 06/17/18 08:21 2.9 g/dL (3.9-5) L 06/17/18 08:21 1.3 % 06/17/18 08:21 Vitamin B12 697.5 pg/mL (211-911) 06/16/18 17:33 TSH 1.100 mlU/mL (0.270-4.200) 06/03/18 20:45 Yellow (Yellow) 06/16/18 03:20 Cloudy (Clear) 06/16/18 03:20 5.0 (5.0-7.0) 06/16/18 03:20 Ur Specific [place] 1.020 (1.003-1.030) 06/16/18 03:20 <15 mg/dl mg/dL (Negative) 06/16/18 03:20 Neg mg/dL (Negative) 06/16/18 03:20 Neg mg/dL (Negative) 06/16/18 03:20 Sm (Negative) 06/16/18 03:20 Neg (Negative) 06/16/18 03:20 Neg (Negative) 06/16/18 03:20 < 2.0 mg/dL (<2.0) 06/16/18 03:20 Ur Leukocyte Esterase Lg (Negative) 06/16/18 03:20 89.0 /HPF (0.0-6.0) H 06/16/18 03:20 10.0 /HPF (0.0-6.0) 06/16/18 03:20 U Epithel Cells (Auto) 2.0 /HPF (0-13.0) 06/16/18 03:20 1+ /HPF (Negative) 06/16/18 03:20 Few /HPF 06/16/18 03:20 1+ /HPF 06/16/18 03:20 203 Mosm/kg 06/02/18 22:02 66 mmol/L 06/18/18 10:05 RPR Nonreactive (Nonreactive) 06/16/18 17:33 Active Medications - Current Medications Current Medications: Generic Name Dose Route Start Last Admin Trade Name Freq PRN Reason Stop Dose Admin Acetaminophen 650 mg 06/03/18 00:05 06/22/18 04:37 Tylenol PO 650 mg Q4H PRN Administration Pain MILD(1-3)/Fever >100.5/CHANCE Acetaminophen 650 mg 06/16/18 15:03 06/19/18 07:46 Tylenol ND 650 mg Q4H PRN Administration Non Cardiac Pain or Temp>100.5 Albuterol 2.5 mg 06/03/18 13:11 06/03/18 15:01 Proventil IH 2.5 mg Q4HRT PRN Administration Shortness Of Breath Albuterol/Ipratropium 1 ampul 06/05/18 20:00 06/24/18 08:29 Duoneb *Not For Prn Use* IH 1 ampul TIDRT CINDA Administration Lipase/Protease/Amylase 1 each 06/20/18 14:55 Pancreradha Salomon 10,500 Unit FEEDTUBE PRN PRN For Clogged Feeding Tube Arformoterol Tartrate 15 mcg 06/03/18 20:00 06/24/18 08:29 Brovana Nebu IH 15 mcg Q12HRT CINDA Administration Budesonide 0.5 mg 06/03/18 20:00 06/24/18 08:29 Pulmicort IH 0.5 mg Q12HRT CINDA Administration Clonidine HCl 0.1 mg 06/11/18 22:00 06/23/18 21:51 Catapres PO 0.1 mg HS CINDA Administration Enoxaparin Sodium 40 mg 06/03/18 10:00 06/24/18 09:34 Lovenox SUB-Q 40 mg QDAY@1000 CINDA Administration Folic Acid 1 mg 06/04/18 10:00 06/24/18 09:35 Folvite PO 1 mg QDAY CINDA Administration Haloperidol Lactate 5 mg 06/09/18 09:51 06/20/18 09:27 Haldol IM 5 mg Q6H PRN Administration Acute Psychosis Hydralazine HCl 10 mg 06/06/18 12:10 06/09/18 14:26 Apresoline IV 10 mg Q4H PRN Administration BP >160/100 Cefepime HCl 2 gm in 100 mls @ 200 mls/hr 06/20/18 22:00 06/24/18 09:35 Maxipime/Ns 2 Gm/100 Ml IV 200 mls/hr Q12HR CINDA Administration Protocol Vancomycin HCl 750 mg/ Sodium 265 mls @ 166.667 mls/hr 06/21/18 18:00 06/23/18 20:28 Chloride IV 166.667 mls/hr Q24H CINDA Administration Lorazepam 2 mg 06/03/18 14:00 06/24/18 08:48 Ativan PO 2 mg Q1H PRN Administration CIWA-Ar 8-15 Lorazepam 4 mg 06/03/18 14:00 06/20/18 11:01 Ativan IV 4 mg Q1H PRN Administration CIWA-Ar 16-25 Lorazepam 4 mg 06/03/18 14:00 Ativan IV Q15MIN PRN CIWA-Ar >25 Melatonin 5 mg 06/07/18 19:41 06/10/18 23:30 Melatonin PO 5 mg QHS PRN Administration Sleep Metoprolol Tartrate 5 mg 06/21/18 11:22 Lopressor IV Q6H PRN sustained HR > 130 Metoprolol Tartrate 12.5 mg 06/21/18 22:00 06/24/18 09:34 Lopressor PO 12.5 mg BID CINDA Administration Mirtazapine 15 mg 06/10/18 22:00 06/23/18 21:49 Remeron PO 15 mg QHS CINDA Administration Morphine Sulfate 2 mg 06/19/18 13:47 06/23/18 10:39 Morphine IV 2 mg Q3H PRN Administration Pain, Moderate (4-6) Multivitamins 5 ml 06/04/18 10:00 06/24/18 09:35 Centrum Liq PO 5 ml QDAY CINDA Administration Ondansetron HCl 4 mg 06/03/18 00:05 Zofran IV Q8H PRN Nausea And Vomiting Pantoprazole Sodium 40 mg 06/06/18 10:00 06/24/18 09:35 Protonix PO 40 mg DAILY CINDA Administration Simple Syrup 15 ml 06/20/18 14:55 Simple Syrup FEEDTUBE PRN PRN Hypoglycemia Simple Syrup 30 ml 06/20/18 14:55 Simple Syrup FEEDTUBE PRN PRN Hypoglycemia Sodium Bicarbonate 325 mg 06/20/18 14:55 Sodium Bicarbonate FEEDTUBE PRN PRN For Clogged Feeding Tube Sodium Chloride 10 ml 06/03/18 10:00 06/24/18 09:37 Sodium Chloride Flush Syringe 10 Ml IV 10 ml BID CINDA Administration Sodium Chloride 10 ml 06/03/18 00:05 Sodium Chloride Flush Syringe 10 Ml IV PRN PRN LINE FLUSH Tamsulosin HCl 0.4 mg 06/03/18 12:00 06/24/18 09:34 Flomax PO 0.4 mg QDAY CINDA Administration Thiamine HCl 100 mg 06/04/18 10:00 06/24/18 09:35 Vitamin B-1 PO 100 mg QDAY CINDA Administration Nutrition/Malnutrition Assess - Dietary Evaluation Nutrition/Malnutrition Findings: Nutrition Notes Start: 06/09/18 14:29 Freq: Status: Active Protocol: Document 06/23/18 14:10 RM (Rec: 06/23/18 14:20 RM [id number]) Nutrition Notes Initial or Follow up Reassessment Current Diagnosis COPD,Hypertension,Heart Failure Other Pertinent Diagnosis Alcoholic Hx, AMS, UTI, Dementia, Metabolic encephalopathy Current Diet Osmolite 1.5 at 55 ml/hr Labs/Tests K 5 Pertinent Medications Reviewed Height 5 ft 10 in Weight 57.2 kg [place] Body Weight (kg) 75.45 BMI 18.1 Subjective/Other Information Observed Osmolite 1.5 infusing at 55 ml/hr. Percent of energy/protein needs met: 100%/100% Burn Absent Trauma Absent #1 Nutrition Diagnosis Inadequate oral intake Diagnosis Progress(for reassessment Continues documentation) Is patient on ventilator? No Is Patient Ambulatory and/or Out of Bed No REE-([place]. or-confined to bed) 1594.224 Kcal/Kg value to use for calculation 32 Approximate Energy Requirements Using 1830 kcal/Kg Calculation Used for Recommendations Kcal/kg Additional Notes Protein Needs: 61-73g (1-1.2g/ kg) Fluid Needs: 1 ml/kcal Nutrition Intervention Nutrition Support: Osmolite 1.5 at 55 ml/hr Water Flush 150ml q4h. Kcal 1,980 Protein (gm) 82 Fluid (mL) 1,005 Goal #1 TF consult Anticipated Discharge Needs: Unable to determine at this time Follow-Up By: 06/25/18 Additional Comments Follow for TF tolerance, K lab
--- NOTE | 2018-06-24 13:48 | Progress Note ---
Assessment and Plan Patient sleeping at this time on room air. O2 saturation is 99%. No acute respiratory distress. - Patient Problems (1) COPD exacerbation Current Visit: No Status: Acute Plan to address problem: According to the history, possible COPD. Patient on 2L O2 Albuterol/Atrovent aerosol treatments q6hrs Continue solumedrol Continue Lovenox Continue Protonix Patient is on cefepime and vancomycin. (2) Acute hyponatremia Current Visit: Yes Status: Acute Plan to address problem: sodium improved to 135 (3) Altered mental status Current Visit: Yes Status: Acute Plan to address problem: Watch altered mental status. (4) Alcohol abuse Current Visit: Yes Status: Chronic Plan to address problem: Patient confused and having shakes and Tremors when he is awake.. Patient is on I/V ativan. Subjective Date of service: 06/24/18 Principal diagnosis: PEG placement Interval history: Patient sleeping at this time on room air. O2 saturation is 99%. No acute respi ratory distress. Objective Vital Signs - 12hr 06/24/18 06/24/18 06/24/18 02:00 03:00 04:00 Temperature Pulse Rate 75 77 70 Pulse Rate [ Throughout] Respiratory 21 25 H 16 Rate Respiratory Rate [ Throughout] Blood Pressure 139/83 146/67 136/76 O2 Sat by Pulse 95 96 98 Oximetry 06/24/18 06/24/18 06/24/18 05:00 06:01 07:00 Temperature Pulse Rate 74 75 69 Pulse Rate [ Throughout] Respiratory 22 23 20 Rate Respiratory Rate [ Throughout] Blood Pressure 140/75 165/75 159/70 O2 Sat by Pulse 97 96 98 Oximetry 06/24/18 06/24/18 06/24/18 08:00 08:31 09:00 Temperature 98.8 F Pulse Rate 63 75 Pulse Rate [ 96 H Throughout] Respiratory 17 28 H Rate Respiratory 28 H Rate [ Throughout] Blood Pressure 159/75 151/71 O2 Sat by Pulse 99 98 98 Oximetry 06/24/18 06/24/18 06/24/18 10:00 11:01 12:00 Temperature 97 F L Pulse Rate 69 62 Pulse Rate [ Throughout] Respiratory 21 21 Rate Respiratory Rate [ Throughout] Blood Pressure 168/72 159/69 O2 Sat by Pulse 99 100 Oximetry 06/24/18 12:01 Temperature Pulse Rate 66 Pulse Rate [ Throughout] Respiratory 26 H Rate Respiratory Rate [ Throughout] Blood Pressure 154/71 O2 Sat by Pulse 100 Oximetry Constitutional: no acute distress, lethargic, appears uncomfortable, other (elderly and chronically ill looking CM , agitated, tremulous) Eyes: non-icteric ENT: oropharynx moist Neck: supple, no JVD, other (no thyromegaly, small bowel feeding tube in nares) Effort: mildly labored Ascultation: Bilateral: diminished breath sounds, other (prolonged expiratory phase) Percussion: Bilateral: not dull Cardiovascular: regular rate and rhythm, other (S1,S2, no murmurs) Gastrointestinal: normoactive bowel sounds, soft, non-tender, non-distended Integumentary: normal Extremities: no cyanosis, no edema, pink and warm, pulses normal Neurologic: pupils equal and round, unable to assess Psychiatric: other (delirious) CBC and BMP: 06/24/18 00:39 06/24/18 05:00 ABG, PT/INR, D-dimer: ABG POC ABG pH 7.381 (7.35-7.45) 06/20/18 11:51 POC ABG pCO2 44.7 (35-45) 06/20/18 11:51 POC ABG pO2 86 (80-105) 06/20/18 11:51 POC ABG HCO3 26.5 (22-26 mml/L) 06/20/18 11:51 POC ABG Total CO2 28 (23-27mmol/L) 06/20/18 11:51 POC ABG O2 Sat 96 06/20/18 11:51 PT/INR, D-dimer PT 16.6 Sec. (12.2-14.9) H 06/18/18 05:06 INR 1.26 (0.87-1.13) H 06/18/18 05:06 Abnormal lab findings: Abnormal Labs 06/02/18 06/02/18 06/02/18 21:25 21:25 22:03 WBC RBC Hgb Hct MCV MCH 33 H MCHC 35 H RDW 12.8 L Plt Count Lymph % (Auto) Lymph # Seg Neutrophils % Seg Neuts % (Manual) 80.0 H Lymphocytes % (Manual) Seg Neutrophils # Lymphocytes # (Manual) 0.8 L PT INR Sodium 109 L* Potassium Chloride 71.3 L Carbon Dioxide BUN 6 L Creatinine 0.5 L Glucose POC Glucose Calcium Phosphorus Magnesium Ammonia Total Creatine Kinase 420 H Total Protein Albumin Urine WBC (Auto) 24.0 H 06/03/18 06/03/18 06/03/18 00:15 06:27 09:42 WBC RBC Hgb Hct MCV MCH MCHC RDW Plt Count Lymph % (Auto) Lymph # Seg Neutrophils % Seg Neuts % (Manual) Lymphocytes % (Manual) Seg Neutrophils # Lymphocytes # (Manual) PT INR Sodium 113 L* 118 L* 116 L* Potassium 3.5 L 3.5 L Chloride 77.2 L 79.1 L 78.2 L Carbon Dioxide BUN 5 L 4 L 4 L Creatinine 0.4 L 0.5 L 0.4 L Glucose POC Glucose Calcium 8.2 L 7.9 L 8.1 L Phosphorus Magnesium Ammonia Total Creatine Kinase Total Protein Albumin Urine WBC (Auto) 06/03/18 06/03/18 06/03/18 14:41 14:41 20:45 WBC RBC Hgb Hct MCV MCH MCHC RDW Plt Count Lymph % (Auto) Lymph # Seg Neutrophils % Seg Neuts % (Manual) Lymphocytes % (Manual) Seg Neutrophils # Lymphocytes # (Manual) PT INR Sodium 114 L* 118 L* Potassium 3.1 L Chloride 76.3 L 79.7 L Carbon Dioxide BUN 4 L 3 L Creatinine 0.5 L 0.4 L Glucose POC Glucose Calcium 8.1 L 8.3 L Phosphorus Magnesium Ammonia 23.0 L Total Creatine Kinase Total Protein Albumin Urine WBC (Auto) 06/04/18 06/04/18 06/04/18 04:39 09:47 09:47 WBC RBC Hgb Hct MCV 95 H MCH 33 H MCHC RDW 12.8 L Plt Count Lymph % (Auto) Lymph # Seg Neutrophils % Seg Neuts % (Manual) 92.0 H Lymphocytes % (Manual) 5.0 L Seg Neutrophils # Lymphocytes # (Manual) 0.3 L PT INR Sodium 123 L Potassium Chloride 85.2 L Carbon Dioxide BUN 5 L Creatinine 0.5 L Glucose 129 H POC Glucose Calcium 8.3 L Phosphorus Magnesium Ammonia Total Creatine Kinase Total Protein 5.5 L Albumin 3.1 L Urine WBC (Auto) 06/05/18 06/06/18 06/07/18 04:29 05:25 07:11 WBC RBC Hgb Hct MCV MCH MCHC RDW Plt Count Lymph % (Auto) Lymph # Seg Neutrophils % Seg Neuts % (Manual) Lymphocytes % (Manual) Seg Neutrophils # Lymphocytes # (Manual) PT INR Sodium 126 L 133 L D 126 L D Potassium Chloride 90.4 L 95.1 L 86.1 L Carbon Dioxide BUN 8 L Creatinine 0.5 L 0.5 L 0.5 L Glucose 170 H 123 H 129 H POC Glucose Calcium 8.2 L 8.1 L Phosphorus Magnesium Ammonia Total Creatine Kinase Total Protein Albumin Urine WBC (Auto) 06/08/18 06/09/18 06/10/18 11:03 06:13 07:14 WBC RBC Hgb Hct MCV MCH MCHC RDW Plt Count Lymph % (Auto) Lymph # Seg Neutrophils % Seg Neuts % (Manual) Lymphocytes % (Manual) Seg Neutrophils # Lymphocytes # (Manual) PT INR Sodium 134 L D Potassium Chloride 92.2 L Carbon Dioxide 31 H BUN Creatinine 0.5 L 0.6 L 0.5 L Glucose 106 H 130 H 126 H POC Glucose Calcium Phosphorus Magnesium Ammonia Total Creatine Kinase Total Protein Albumin Urine WBC (Auto) 06/11/18 06/12/18 06/13/18 10:23 04:58 05:33 WBC RBC Hgb Hct MCV MCH MCHC RDW Plt Count Lymph % (Auto) Lymph # Seg Neutrophils % Seg Neuts % (Manual) Lymphocytes % (Manual) Seg Neutrophils # Lymphocytes # (Manual) PT INR Sodium 136 L 134 L Potassium 3.5 L Chloride Carbon Dioxide BUN 27 H Creatinine 0.4 L 0.5 L 0.6 L Glucose 155 H 141 H 112 H POC Glucose Calcium 8.1 L 7.9 L 8.3 L Phosphorus Magnesium Ammonia Total Creatine Kinase Total Protein Albumin Urine WBC (Auto) 06/13/18 06/14/18 06/14/18 05:33 05:14 05:14 WBC 12.6 H 12.3 H RBC Hgb Hct MCV 97 H 98 H MCH 33 H MCHC RDW Plt Count 133 L Lymph % (Auto) Lymph # Seg Neutrophils % Seg Neuts % (Manual) Lymphocytes % (Manual) Seg Neutrophils # Lymphocytes # (Manual) PT INR Sodium 146 H Potassium Chloride 107.2 H Carbon Dioxide BUN 31 H Creatinine 0.6 L Glucose 113 H POC Glucose Calcium Phosphorus Magnesium Ammonia Total Creatine Kinase Total Protein Albumin Urine WBC (Auto) 04/28/19 04/28/19 04/29/19 04:47 04:47 03:20 WBC 16.7 H RBC Hgb Hct MCV 97 H MCH MCHC RDW Plt Count 138 L Lymph % (Auto) Lymph # Seg Neutrophils % Seg Neuts % (Manual) Lymphocytes % (Manual) Seg Neutrophils # Lymphocytes # (Manual) PT INR Sodium 146 H Potassium Chloride 109.2 H Carbon Dioxide BUN 32 H Creatinine 0.6 L Glucose 124 H POC Glucose Calcium 7.8 L Phosphorus Magnesium Ammonia Total Creatine Kinase Total Protein Albumin Urine WBC (Auto) 89.0 H 06/16/18 06/17/18 06/17/18 05:22 08:21 08:21 WBC 11.4 H RBC Hgb Hct MCV 98 H MCH 33 H MCHC RDW Plt Count 107 L Lymph % (Auto) Lymph # Seg Neutrophils % Seg Neuts % (Manual) Lymphocytes % (Manual) Seg Neutrophils # Lymphocytes # (Manual) PT INR Sodium 146 H 146 H Potassium Chloride 109.0 H 109.2 H Carbon Dioxide BUN 39 H 47 H Creatinine Glucose 120 H 109 H POC Glucose Calcium 7.9 L 8.3 L Phosphorus Magnesium 2.60 H Ammonia Total Creatine Kinase Total Protein 5.2 L Albumin 2.9 L Urine WBC (Auto) 06/18/18 06/19/18 06/19/18 05:06 09:10 09:10 WBC RBC 3.50 L Hgb 11.7 L Hct 34.4 L MCV 98 H MCH 33 H MCHC RDW Plt Count 98 L Lymph % (Auto) 11.8 L Lymph # Seg Neutrophils % 82.4 H Seg Neuts % (Manual) Lymphocytes % (Manual) Seg Neutrophils # 8.8 H Lymphocytes # (Manual) PT 16.6 H INR 1.26 H Sodium 146 H Potassium Chloride 107.3 H Carbon Dioxide BUN 29 H Creatinine 0.7 L Glucose 74 L POC Glucose Calcium 7.6 L Phosphorus Magnesium Ammonia Total Creatine Kinase Total Protein Albumin Urine WBC (Auto) 06/21/18 06/21/18 06/21/18 11:55 11:55 14:49 WBC RBC 3.05 L Hgb 10.0 L Hct 29.4 L MCV 97 H MCH 33 H MCHC RDW 12.6 L Plt Count 84 L Lymph % (Auto) 10.7 L Lymph # 0.6 L Seg Neutrophils % 83.4 H Seg Neuts % (Manual) Lymphocytes % (Manual) Seg Neutrophils # Lymphocytes # (Manual) PT INR Sodium 130 L D 132 L Potassium 2.9 L* D 3.1 L Chloride 93.8 L 94.1 L Carbon Dioxide BUN Creatinine 0.4 L 0.4 L Glucose 107 H 115 H POC Glucose Calcium 7.4 L 7.7 L Phosphorus 1.90 L Magnesium 1.50 L Ammonia Total Creatine Kinase Total Protein Albumin Urine WBC (Auto) 06/22/18 06/22/18 06/24/18 05:11 11:56 00:39 WBC RBC 2.99 L Hgb 10.0 L Hct 29.3 L MCV 98 H MCH 34 H MCHC RDW 13.1 L Plt Count 120 L Lymph % (Auto) Lymph # 0.7 L Seg Neutrophils % 76.5 H Seg Neuts % (Manual) Lymphocytes % (Manual) Seg Neutrophils # Lymphocytes # (Manual) PT INR Sodium 135 L Potassium Chloride Carbon Dioxide BUN Creatinine 0.4 L Glucose 120 H POC Glucose 110 H Calcium 7.3 L Phosphorus 2.40 L D Magnesium Ammonia Total Creatine Kinase Total Protein Albumin Urine WBC (Auto) 06/24/18 05:00 WBC RBC Hgb Hct MCV MCH MCHC RDW Plt Count Lymph % (Auto) Lymph # Seg Neutrophils % Seg Neuts % (Manual) Lymphocytes % (Manual) Seg Neutrophils # Lymphocytes # (Manual) PT INR Sodium 132 L Potassium Chloride Carbon Dioxide BUN Creatinine 0.3 L Glucose 119 H POC Glucose Calcium 7.5 L Phosphorus Magnesium Ammonia Total Creatine Kinase Total Protein Albumin Urine WBC (Auto) Allied health notes reviewed: nursing
--- NOTE | 2018-06-24 19:44 | Cat Scan Report ---
PROCEDURE: CT ABDOMEN PELVIS W CON TECHNIQUE: Computerized axial tomography of the abdomen and pelvis was performed with intravenous co ntrast. CONTRAST: CT DOSE LENGTH PRODUCT: 1460.8 mGycm HISTORY: evaluation for possible cirrhosis (r/o varices) COMPARISONS: None . FINDINGS: Visualized lower thorax: Bilateral moderate pleural effusions and bibasilar compressive atelectasis i s seen.. There is a small pulmonary embolism in the left lower lobe segmental pulmonary artery (axial image 14/21, series 2) Liver: Normal size and attenuation. No nodularity of the liver contour is seen to suggest cirrhosis. No varices are noted. No ascites is seen. Spleen: Normal size and attenuation. Gallbladder and biliary system: Normal. Pancreas: Normal. Adrenals: Normal. Kidneys: There is a 2.2 cm cyst in the lower pole left kidney. GI tract: Normal . Lymph nodes and mesentery: Normal. Vasculature: Moderate calcification of aorta is seen. Bladder: Catheter is present in the bladder but no [place] balloon is seen. Reproductive organs: Normal. Peritoneum: No free fluid. Musculoskeletal structures: Severe disc space narrowing at L4-L5 and L5-S1 is noted. S-shaped scolios is of the thoracolumbar spine is noted. Other: Nasogastric tube terminates in the stomach.. IMPRESSION: 1. No evidence for cirrhosis or varices. No evidence for ascites 2. Findings suspicious for pulmonary embolism in the left lower lobe segmental pulmonary artery 3. Cyst in the left kidney This document is electronically signed by Adela Horan MD., Jun 24 2018 07:42:15 PM ET
[2018-06-24] MEDS ORDERED: LOVENOX SUB-Q SCH (21:00)
[2018-06-24] MEDS ORDERED: ELIQUIS PO SCH (22:00)
[2018-06-24] MEDS: CATAPRES PO SCH (22:11)
[2018-06-24] MEDS: REMERON PO SCH (22:12)
[2018-06-25 05:37] LABS: INR 1.17 (0.87-1.13)
[2018-06-25 06:00] LABS: BUN/Creatinine Ratio 30; Blood Urea Nitrogen 9 mg/dL (9-20); Calcium 7.8 mg/dL (8.4-10.2); Hemolysis Index 26
[2018-06-25] MEDS: DUONEB *Not for PRN Use IH SCH ×2 (07:24→13:48)
[2018-06-25] MEDS: PULMICORT IH SCH (07:25)
[2018-06-25] MEDS: BROVANA NEBU IH SCH (07:25)
[2018-06-25] MEDS: SODIUM CHLORIDE FLUSH SYRINGE 10 ML IV SCH (10:00)
[2018-06-25] MEDS: VITAMIN B-1 PO SCH (10:00)
[2018-06-25] MEDS: LOPRESSOR PO SCH (10:00)
[2018-06-25] MEDS: FLOMAX PO SCH (10:00)
[2018-06-25] MEDS: PROTONIX PO SCH (10:00)
[2018-06-25] MEDS: Centrum Liq PO SCH (10:00)
[2018-06-25] MEDS: FOLVITE PO SCH (10:00)
[2018-06-25] MEDS: MAXIPIME/NS 2 GM/100 ML 2 GM/100 ML BAG IV SCH (10:58)
--- NOTE | 2018-06-25 11:25 | Progress Note ---
Assessment and Plan Impression * Acute hyponatremia * COPD * Alcohol abuse Recommendations * Patient's serum sodium noted to be slightly lower at 131 today . * Reduce water flush with tube feeds to 50 mL. discussed with patient's nurse. He is still getting 100 mL every 4 hours * Urine sodium was 20 and urine osmolality is 203 . 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 Hyponatremia may be due to liver disease as well * Continue free water restriction Subjective Date of service: 06/25/18 Principal diagnosis: PEG placement Interval history: Patient remains confused. Currently in wrist restraints. Dobbhoff tube in place. Comfortable. Objective - Vital Signs Vital signs: Vital Signs - 12hr 06/25/18 06/25/18 06/25/18 00:01 00:19 01:00 Temperature 98.3 F Pulse Rate 66 67 Pulse Rate [ Anterior Bilateral Throughout] Pulse Rate [ Throughout] Respiratory 24 22 Rate Respiratory Rate [Anterior Bilateral Throughout] Respiratory Rate [ Throughout] Blood Pressure 143/59 165/68 O2 Sat by Pulse 99 99 Oximetry 06/25/18 06/25/18 06/25/18 02:00 03:00 04:00 Temperature 98.4 F Pulse Rate 69 68 65 Pulse Rate [ Anterior Bilateral Throughout] Pulse Rate [ Throughout] Respiratory 23 22 17 Rate Respiratory Rate [Anterior Bilateral Throughout] Respiratory Rate [ Throughout] Blood Pressure 176/52 126/75 116/63 O2 Sat by Pulse 99 99 99 Oximetry 06/25/18 06/25/18 06/25/18 05:00 06:00 07:00 Temperature Pulse Rate 69 71 77 Pulse Rate [ Anterior Bilateral Throughout] Pulse Rate [ Throughout] Respiratory 18 19 18 Rate Respiratory Rate [Anterior Bilateral Throughout] Respiratory Rate [ Throughout] Blood Pressure 110/64 125/71 128/77 O2 Sat by Pulse 85 98 Oximetry 06/25/18 06/25/18 06/25/18 07:25 07:26 08:00 Temperature 97.6 F Pulse Rate Pulse Rate [ 75 Anterior Bilateral Throughout] Pulse Rate [ 76 Throughout] Respiratory Rate Respiratory 16 Rate [Anterior Bilateral Throughout] Respiratory 16 Rate [ Throughout] Blood Pressure O2 Sat by Pulse 99 Oximetry 06/25/18 06/25/18 06/25/18 08:01 09:00 10:01 Temperature Pulse Rate 81 71 91 H Pulse Rate [ Anterior Bilateral Throughout] Pulse Rate [ Throughout] Respiratory 28 H 16 15 Rate Respiratory Rate [Anterior Bilateral Throughout] Respiratory Rate [ Throughout] Blood Pressure 128/77 148/73 96/64 O2 Sat by Pulse 98 98 Oximetry 06/25/18 11:01 Temperature Pulse Rate 72 Pulse Rate [ Anterior Bilateral Throughout] Pulse Rate [ Throughout] Respiratory 16 Rate Respiratory Rate [Anterior Bilateral Throughout] Respiratory Rate [ Throughout] Blood Pressure 121/67 O2 Sat by Pulse 98 Oximetry - General Appearance General appearance: chronically ill, frail EENT: PERRL, mucous membranes moist Neck: no JVD, no thyromegaly, no carotid bruit, supple Respiratory: Present: Clear to Ascultation Cardiology: regular, normal heart rate Gastrointestinal: normal, normoactive bowel sounds Integumentary: other (no edema) - Lab 06/24/18 00:39 06/25/18 04:50 Most recent lab results Calcium 7.8 mg/dL (8.4-10.2) L 06/25/18 04:50 Phosphorus 2.40 mg/dL (2.5-4.5) L D 06/22/18 05:11 Magnesium 2.30 mg/dL (1.7-2.3) 06/22/18 05:11 66 mmol/L 06/18/18 10:05 Medications & Allergies - Medications Allergies/Adverse Reactions: Allergies diphenhydramine HCl [From Benadryl] Allergy (Verified 09/24/14 11:56) Unknown HALLUCINATIONS Home Medications: Home Medications Medication Instructions Recorded Confirmed Last Taken Type Albuterol *Only Ed* [Proventil 2.5 mg IH Q4HRT PRN #1 nebu 10/03/14 06/03/18 Unknown Rx 0.5% NEBS] Folic Acid [Folvite] 1 mg PO QDAY #30 tablet 10/03/14 06/03/18 Unknown Rx Furosemide [Lasix TAB] 20 mg PO QDAY #30 tablet 10/03/14 06/03/18 Unknown Rx Metoprolol [Lopressor TAB] 12.5 mg PO BID #60 tablet 10/03/14 06/03/18 Unknown Rx Multivitamins Liq [Multiple 5 ml PO QDAY 30 Days oral.liqd 10/03/14 06/03/18 Unknown Rx Vitamin Liq (Theragran)] Thiamine [Vitamin B-1] 100 mg PO QDAY #30 tablet 10/03/14 06/03/18 Unknown Rx Active Medications: Generic Name Dose Route Start Last Admin Trade Name Freq PRN Reason Stop Dose Admin Acetaminophen 650 mg 06/03/18 00:05 06/22/18 04:37 Tylenol PO 650 mg Q4H PRN Administration Pain MILD(1-3)/Fever >100.5/CHANCE Acetaminophen 650 mg 06/16/18 15:03 06/19/18 07:46 Tylenol IN 650 mg Q4H PRN Administration Non Cardiac Pain or Temp>100.5 Albuterol 2.5 mg 06/03/18 13:11 06/03/18 15:01 Proventil IH 2.5 mg Q4HRT PRN Administration Shortness Of Breath Albuterol/Ipratropium 1 ampul 06/05/18 20:00 06/25/18 07:24 Duoneb *Not For Prn Use* IH Not Given TIDRT CINDA Lipase/Protease/Amylase 1 each 06/20/18 14:55 Pancreaznupur Salomon 10,500 Unit FEEDTUBE PRN PRN For Clogged Feeding Tube Apixaban 5 mg 06/24/18 22:00 06/24/18 22:11 Eliquis PO 5 mg Q12HR CINDA Administration Protocol Arformoterol Tartrate 15 mcg 06/03/18 20:00 06/25/18 07:25 Brovana Nebu IH 15 mcg Q12HRT CINDA Administration Budesonide 0.5 mg 06/03/18 20:00 06/25/18 07:25 Pulmicort IH 0.5 mg Q12HRT CINDA Administration Clonidine HCl 0.1 mg 06/11/18 22:00 06/24/18 22:11 Catapres PO 0.1 mg HS CINDA Administration Enoxaparin Sodium 60 mg 06/24/18 21:00 06/24/18 22:06 Lovenox 1 mg/kg (60 mg) 60 mg SUB-Q Administration Q24H CINDA Folic Acid 1 mg 06/04/18 10:00 06/24/18 09:35 Folvite PO 1 mg QDAY CINDA Administration Haloperidol Lactate 5 mg 06/09/18 09:51 06/20/18 09:27 Haldol IM 5 mg Q6H PRN Administration Acute Psychosis Hydralazine HCl 10 mg 06/06/18 12:10 06/09/18 14:26 Apresoline IV 10 mg Q4H PRN Administration BP >160/100 Cefepime HCl 2 gm in 100 mls @ 200 mls/hr 06/20/18 22:00 06/25/18 10:58 Maxipime/Ns 2 Gm/100 Ml IV 200 mls/hr Q12HR CINDA Administration Protocol Vancomycin HCl 750 mg/ Sodium 265 mls @ 166.667 mls/hr 06/21/18 18:00 06/23/18 20:28 Chloride IV 166.667 mls/hr Q24H CINDA Administration Heparin Sodium/Sodium Chloride 25,000 unit in 500 mls @ 17.4 mls/hr 06/25/18 12:00 Heparin/ 0.45% Nacl-25,000 Unit/500 Ml IV TITR CINDA Protocol 15 UNITS/KG/HR Lorazepam 2 mg 06/03/18 14:00 06/24/18 22:10 Ativan PO 2 mg Q1H PRN Administration CIWA-Ar 8-15 Lorazepam 4 mg 06/03/18 14:00 06/20/18 11:01 Ativan IV 4 mg Q1H PRN Administration CIWA-Ar 16-25 Lorazepam 4 mg 06/03/18 14:00 Ativan IV Q15MIN PRN CIWA-Ar >25 Melatonin 5 mg 06/07/18 19:41 06/10/18 23:30 Melatonin PO 5 mg QHS PRN Administration Sleep Metoprolol Tartrate 5 mg 06/21/18 11:22 Lopressor IV Q6H PRN sustained HR > 130 Metoprolol Tartrate 12.5 mg 06/21/18 22:00 06/24/18 22:07 Lopressor PO 12.5 mg BID CINDA Administration Mirtazapine 15 mg 06/10/18 22:00 06/24/18 22:12 Remeron PO 15 mg QHS CIDNA Administration Morphine Sulfate 2 mg 06/19/18 13:47 06/23/18 10:39 Morphine IV 2 mg Q3H PRN Administration Pain, Moderate (4-6) Multivitamins 5 ml 06/04/18 10:00 06/24/18 09:35 Centrum Liq PO 5 ml QDAY CINDA Administration Ondansetron HCl 4 mg 06/03/18 00:05 Zofran IV Q8H PRN Nausea And Vomiting Pantoprazole Sodium 40 mg 06/06/18 10:00 06/24/18 09:35 Protonix PO 40 mg DAILY CINDA Administration Simple Syrup 15 ml 06/20/18 14:55 Simple Syrup FEEDTUBE PRN PRN Hypoglycemia Simple Syrup 30 ml 06/20/18 14:55 Simple Syrup FEEDTUBE PRN PRN Hypoglycemia Sodium Bicarbonate 325 mg 06/20/18 14:55 Sodium Bicarbonate FEEDTUBE PRN PRN For Clogged Feeding Tube Sodium Chloride 10 ml 06/03/18 10:00 06/24/18 22:13 Sodium Chloride Flush Syringe 10 Ml IV 10 ml BID CINDA Administration Sodium Chloride 10 ml 06/03/18 00:05 Sodium Chloride Flush Syringe 10 Ml IV PRN PRN LINE FLUSH Tamsulosin HCl 0.4 mg 06/03/18 12:00 06/24/18 09:34 Flomax PO 0.4 mg QDAY CINDA Administration Thiamine HCl 100 mg 06/04/18 10:00 06/24/18 09:35 Vitamin B-1 PO 100 mg QDAY CINDA Administration
--- NOTE | 2018-06-25 11:29 | Progress Note ---
Assessment and Plan Cultures: Blood culture 06/13/2018 no growth Blood culture: 06/19/2018: no growth in 24 hours Urine culture grew multiple sp <10 Urine culture 06/16/2018 10-100K Enterococcus. Assessment: 72 y/o male with history of alcoholism,tobacco use, COPD and dementia admitted on 06/02/2018 due to AMS/confusion: 1) Sepsis: Resolved. Etiology most likely UTI., +/- drug fever. CXR negative. Blood culture 06/13/2018 no growth. Repeat blood culture no growth thus far. Discontinue unasyn to r/o possible drug fever. Continue Vancomycin and Cefepime. 2) UTI: mild UTI present on admission, however worsening. UA showed wbc 24, large LE. Urine culture grew multiple sp <10. A zuniga was placed and then removed. Repeat UA showed wbc 89, large LE. Urine culture 06/16/2018 10-100K Enterococcus. Abdominal US shows no evidence of hydronephrosis. The urinary bladder appears distended, but smooth in contour. No evidence of gallstones or cholecystitis. Abdominal CT shows no obstructive pattern. 3) Acute on chronic encephalopathy: multifactorial- dementia, ETOH, hyponatremia and UTI. Brain MRI shows global cortical atrophy and otherwise negative. No evidence of acute/subacute infarct or hemorrhage. 4) Acute urinary retention: Improved. Zuniga catheter 5) Hyponatremia: Improved. 6) Severe malnutrition: failed swallow study, Feeding tube placed. 7) Acute Respiratory Failure: probably related to COPD exacerbation. On 4L/NC. Recommendations: continue vancomyin and cefepime, D5 -last dose today -f/u blood cultures ID is signing off [facility] M: [id number] O:[phone] Subjective Date of service: 06/25/18 Principal diagnosis: PEG placement Interval history: Patient seen and examined. Calm today, no acute distress observed. Objective - Exam Narrative Exam: General appearance: Awake. Alert. Calm Cachexia. Eyes: anicteric sclerae, moist conjunctivae; no lid-lag; PERRLA HENT: Atraumatic; oropharynx limited. + NGT Neck: Trachea midline; supple, no thyromegaly or lymphadenopathy Lungs: CTA CV: tachycardic Abdomen: Soft, +bowel sounds, no tenderness on exam Extremities: No peripheral edema or extremity lymphadenopathy Skin: no rash or abscess Psych: calm Neuro: Awake, Alert. Calm. - Constitutional Vitals: Vital Signs Temp Pulse Resp BP Pulse Ox 98.1 F 72 16 121/67 98 06/25/18 08:00 06/25/18 11:01 06/25/18 11:01 06/25/18 11:01 06/25/18 11:01 Temperature -Last 24 Hours Temperature 98.1 F Temperature 97.6 F Temperature 98.4 F Temperature 98.3 F Temperature 98.6 F Temperature 98.2 F Temperature 98.1 F Temperature 97 F - Labs CBC & Chem 7: 06/25/18 11:46 06/25/18 04:50 Labs: Abnormal lab results 06/25/18 06/25/18 Range/Units 04:50 04:50 PT 15.7 H (12.2-14.9) Sec. INR 1.17 H (0.87-1.13) Sodium 131 L (137-145) mmol/L Chloride 96.0 L (98-107) mmol/L Creatinine 0.3 L (0.8-1.5) mg/dL Glucose 112 H (75-100) mg/dL Calcium 7.8 L (8.4-10.2) mg/dL
[2018-06-25] MEDS ORDERED: HEPARIN/ 0.45% NACL-25,000 UNIT/500 ML 25,000 UNIT/500 ML BAG IV SCH (12:00)
--- NOTE | 2018-06-25 12:12 | Gastroenterology Progress Note ---
Assessment and Plan 1.PEG placement -Oropharyngeal dysphagia -abd CT yesterday did not show any evidence of cirrhosis or varices, but did however show a possible small PE in LLL segmental pulmonary artery with patient started on Eliquis overnight -chest CT pending for today to confirm PE per hospitalist (Dr. Yancey) -EGD/PEG cancelled for today (Eliquis must be held 48hrs prior to procedure) -called and spoke with pulmonary regarding PE with recommendations for Eliquis to be held and patient to be bridged on heparin drip for PEG -will tentatively re-schedule EGD/PEG for Saturday (06/27) -okay to resume TFs for now (NPO at [place] on 06/27) -continue supportive care -will follow Subjective Date of service: 06/25/18 Principal diagnosis: PEG placement Interval history: No acute distress. Objective - Constitutional Vitals: Temp Pulse Resp BP Pulse Ox 98.1 F 72 16 121/67 98 06/25/18 08:00 06/25/18 11:01 06/25/18 11:01 06/25/18 11:01 06/25/18 11:01 General appearance: no acute distress - Respiratory Respiratory: bilateral: diminished - Cardiovascular Rhythm: regular - Gastrointestinal General gastrointestinal: Present: soft, non-distended, normal bowel sounds - Labs CBC & Chem 7: 06/24/18 00:39 06/25/18 04:50 Labs: Laboratory Results - last 24 hr 06/25/18 06/25/18 04:50 04:50 PT 15.7 H INR 1.17 H Sodium 131 L Potassium 4.2 Chloride 96.0 L Carbon Dioxide 28 Anion Gap 11 BUN 9 Creatinine 0.3 L Estimated GFR > 60 BUN/Creatinine Ratio 30 Glucose 112 H Calcium 7.8 L
[2018-06-25 12:15] LABS: Hematocrit 32.2 % (35.5-45.6)
[2018-06-25 12:29] LABS: INR 1.07 (0.87-1.13)
[2018-06-25 12:30] LABS: Partial Thromboplastin Time 28.1 Sec. (24.2-36.6)
[2018-06-25 13:25] VITALS: BP 122/75
--- NOTE | 2018-06-25 13:48 | Discharge Summary ---
Providers - Providers Date of Admission: 06/02/18 23:56 Attending physician: NASRIN REDDING MD 06/03/18 06:35 Consult to Physician [CONS] Urgent Comment: called office / maria isabel Consulting Provider: EZIO DEL CID Physician Instructions: Reason For Exam: hyponatrmia 06/03/18 11:59 Speech Therapy Evaluation and Treat [CONS] Routine Reason For Exam: dysphagia? 06/03/18 16:00 Consult to Physician [CONS] Routine Comment: Consulting Provider: KAY CHONG Physician Instructions: Reason For Exam: copd 06/05/18 10:17 Physical Therapy Evaluation and Treat [CONS] Routine Comment: Reason For Exam: Debility with unsteady gait 06/05/18 16:16 Consult to Mental Health [CONS] Routine Reason For Exam: etoh, dementia, agitation Place consult to:: [facility] Notified:: service Phone number called:: [phone] Was contact made?: No 06/06/18 14:43 Consult to Mental Health [CONS] Routine Reason For Exam: behavioral disturbance Place consult to:: [facility] Notified:: YES Phone number called:: [phone] Was contact made?: Yes If yes, spoke with:: JERALD Time called:: 18:36 Comment:: MARIA ISABEL 06/09/18 05:11 Consult to Wound/ET Nurse [CONS] Routine Reason For Exam: wound eval 06/13/18 10:18 Speech Therapy Evaluation and Treat [CONS] Stat Reason For Exam: Coughing/wet after PO intake. 06/15/18 12:16 Consult to Physician [CONS] Routine Comment: left message [phone]/maria isabel Consulting Provider: MANE LUCIA Physician Instructions: Reason For Exam: AMS 06/16/18 13:04 Speech Therapy Evaluation and Treat [CONS] Routine Reason For Exam: swallow eval 06/16/18 15:04 Consult to Physician [CONS] Routine Comment: Consulting Provider: ZAK AGUIRRE Physician Instructions: Reason For Exam: PEG evaluation 06/16/18 15:05 Consult to Physician [CONS] Routine Comment: Consulting Provider: BHUPENDRA TODD Physician Instructions: Reason For Exam: Fevers, new onset 06/20/18 14:34 Consult to Dietitian/Nutrition [CONS] Routine Physician Instructions: Reason For Exam: Reason for Consult: Write/Manage Tube Feeding Primary care physician: [facility] Hospitalization Reason for admission: Confusion, Severe hyponatremia Condition: Stable Pertinent studies: CT abdomen and Pelvis IMPRESSION: 1. No evidence for cirrhosis or varices. No evidence for ascites 2. Findings suspicious for pulmonary embolism in the left lower lobe segmental pulmonary artery 3. Cyst in the left kidney CTA chest no PE Hospital course: Patient is a 72-year-old male with history of hypertension and CHF who presented to the ER with complaints of weakness, and difficulty urinating. Patient states that his passed out 2 weeks ago and is currently living alone, he has a son in another state, patient complains of some confusion and difficulty remembering specific events and mild disorientation. Patient was examined in the ER and his laboratory values showed a sodium level of 109, his chloride was 71.3. Patient also had a CT scan of the brain and a chest x-ray which were negative, nephrology was consulted and he is being admitted for further evaluation of his low sodium. The patient was found to have a very low sodium, agitated and confused. Patient was not eating. CT head no acute findings Chest x-ray no acute findings -The patient was on [facility] protocol for alcohol withdrawal. Resolved -The patient was initially very hyponatremic when he came to the hospital, he received saline IV, salt tabs and his potassium was replaced and corrected -The patient developed urinary retention, therefore [place] catheter placed -He received a course of steroids and nebulizers for COPD exacerbation, now improved. -he had very poor by mouth intake, he was only taking sips of drinks some barely consuming any food. He received dietitian consult, ST consult revealed severe dysphagia, GI was consulted and GI was not able to do the PEG because patient was started with eliquis. 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 CT abdomen and pelvis was done and suspicious for PE and was started with eliquis and later changed to heparin with the plan to stop 6 hrs before the procedure. CTA was done and was negative for PE. I get the result after DC and will call the physician and will let know the result. Patient was critical at the time of discharge and prognosis is poor. Disposition: DC-30 STILL A PATIENT Time spent for discharge: 32 minutes - Discharge Diagnoses (1) Dysphagia Status: Acute (2) Pulmonary embolism Status: Acute (3) Acute hyponatremia Status: Acute (4) Altered mental status Status: Acute (5) Hypophosphatemia Status: Acute (6) Paroxysmal atrial flutter Status: Acute (7) Alcohol abuse Status: Chronic (8) Hypertension Status: Chronic Qualifiers: Hypertension type: essential hypertension Qualified Code(s): I10 - Essential (primary) hypertension (9) COPD exacerbation Status: Acute Core Measure Documentation - Palliative Care Palliative Care/ Comfort Measures: Not Applicable - Core Measures Any of the following diagnoses?: none Exam - Physical Exam Narrative exam: Not in cardiopulmonary distress. The patient is emaciated. Vital signs as documented. Head exam is unremarkable. No scleral icterus . Neck is without jugular venous distension, thyromegaly, or carotid bruits. Lungs are clear to auscultation. Cardiac exam reveals regular rate and Rhythm. Abdominal exam reveals normal bowel sounds. Extremities are nonedematous and both femoral and pedal pulses are normal. SHIP'S CAPTAIN: Alert. - Constitutional Vitals: Temp Pulse Resp BP Pulse Ox 97.4 F L 76 19 122/75 98 06/25/18 12:00 06/25/18 12:00 06/25/18 12:00 06/25/18 12:00 06/25/18 12:00 Plan Activity: no restrictions Weight Bearing Status: Full Weight Bearing Follow up with: PRIYA MAHMOOD MD [Primary Care Provider] - 3-5 Days
--- NOTE | 2018-06-25 16:49 | Cat Scan Report ---
PROCEDURE: CT ANGIO CHEST TECHNIQUE : Enhanced CT of the chest at 2.5 mm axial intervals following a pulmonary embolism protoco l. Coronal and sagittal imaging were also obtained. Coronal oblique MIP projections were obtained. CT DOSE LENGTH PRODUCT: 442.2 mGycm CONTRAST: 75 ml of Isovue 300 given IV. HISTORY: PE PRIORS: CT chest 09/25/2014 FINDINGS: There is no evidence for pulmonary embolism in the main pulmonary artery, right and left pulmonary ar teries or their major distributions. However, CT does not exclude distal pulmonary emboli. Bibasilar compressive atelectasis is noted posteriorly, left greater than right. Small low-density fr ee-flowing bilateral pleural effusions are noted. There is no evidence for parenchymal nodules, conso lidation, or congestion. There is no evidence for mediastinal, hilar, or axillary adenopathy. Nasogas tric tube is present in the stomach. Cardiovascular structures are within normal limits. No evidence for ventricular chamber enlargement i s seen. Images through the lung bases include the upper abdomen which show a 2.6 cm cyst in the upper pole le ft kidney medially. This is slightly larger than seen previously (2.1 cm). Bony structures demonstrate no focal abnormalities. IMPRESSION: 1. No evidence for pulmonary embolism. 2. Bilateral pleural effusions and adjacent bibasilar compressive atelectasis 3. Slight enlargement in a cyst in the medial left kidney. Ultrasound is recommended to confirm a elder ign cyst. This document is electronically signed by Adela Horan MD., Jun 25 2018 04:47:37 PM ET
[2018-06-25] MEDS ORDERED: MORPHINE IV PRN (16:54)
--- NOTE | 2018-06-25 18:47 | Progress Note ---
Assessment and Plan PATIENT STILL HAVING SHAKES AND TREMORS.Patient at this time on room air. O2 saturation is 99%. No acute respiratory distress. There is question of pulmonary emboli reported on CAT scan of abdomen. Repeated Angio CT of chest. Reported no pulmonary embolism. Recommend to stop I/V Heparin. Recommend continue S/C Lovenox for DVT prophylaxis. - Patient Problems (1) COPD exacerbation Current Visit: No Status: Acute Plan to address problem: According to the history, possible COPD. Patient on 2L O2 Albuterol/Atrovent aerosol treatments q6hrs Continue solumedrol Continue Lovenox Continue Protonix Patient is on cefepime and vancomycin. (2) Acute hyponatremia Current Visit: Yes Status: Acute Plan to address problem: sodium improved to 131 (3) Altered mental status Current Visit: Yes Status: Acute Plan to address problem: Management as per primary care and neurology. (4) Alcohol abuse Current Visit: Yes Status: Chronic Plan to address problem: Patient confused and having shakes and Tremors when he is awake.. Patient is on I/V ativan. Subjective Date of service: 06/25/18 Principal diagnosis: PEG placement Interval history: PATIENT STILL HAVING SHAKES AND TREMORS.Patient at this time on room air. O2 saturation is 99%. No acute respiratory distress. There is question of pulmonary emboli reported on CAT scan of abdomen. Repeated Angio CT of chest. Reported no pulmonary embolism. Recommend to stop I/V Heparin. Recommend continue S/C Lovenox for DVT prophylaxis. Objective Vital Signs - 12hr 06/25/18 06/25/18 06/25/18 07:00 07:25 07:26 Temperature Pulse Rate 77 Pulse Rate [ 75 Anterior Bilateral Throughout] Pulse Rate [ 76 Throughout] Respiratory 18 Rate Respiratory 16 Rate [Anterior Bilateral Throughout] Respiratory 16 Rate [ Throughout] Blood Pressure 128/77 O2 Sat by Pulse 98 99 Oximetry 06/25/18 06/25/18 06/25/18 08:00 08:01 09:00 Temperature 98.1 F Pulse Rate 81 71 Pulse Rate [ Anterior Bilateral Throughout] Pulse Rate [ Throughout] Respiratory 28 H 16 Rate Respiratory Rate [Anterior Bilateral Throughout] Respiratory Rate [ Throughout] Blood Pressure 128/77 148/73 O2 Sat by Pulse 98 98 Oximetry 06/25/18 06/25/18 06/25/18 10:00 10:01 11:01 Temperature Pulse Rate 72 91 H 72 Pulse Rate [ Anterior Bilateral Throughout] Pulse Rate [ Throughout] Respiratory 15 16 Rate Respiratory Rate [Anterior Bilateral Throughout] Respiratory Rate [ Throughout] Blood Pressure 96/64 121/67 O2 Sat by Pulse 98 Oximetry 06/25/18 06/25/18 12:00 13:50 Temperature 97.4 F L Pulse Rate 76 Pulse Rate [ 74 Anterior Bilateral Throughout] Pulse Rate [ 77 Throughout] Respiratory 19 Rate Respiratory 16 Rate [Anterior Bilateral Throughout] Respiratory 17 Rate [ Throughout] Blood Pressure 122/75 O2 Sat by Pulse 98 Oximetry Constitutional: no acute distress, lethargic, appears uncomfortable, other (elderly and chronically ill looking CM , agitated, tremulous) Eyes: non-icteric ENT: oropharynx moist Neck: supple, no JVD, other (no thyromegaly, small bowel feeding tube in nares) Effort: mildly labored Ascultation: Bilateral: diminished breath sounds, other (prolonged expiratory phase) Percussion: Bilateral: not dull Cardiovascular: regular rate and rhythm, other (S1,S2, no murmurs) Gastrointestinal: normoactive bowel sounds, soft, non-tender, non-distended Integumentary: normal Extremities: no cyanosis, no edema, pink and warm, pulses normal Neurologic: pupils equal and round, unable to assess Psychiatric: other (delirious) CBC and BMP: 06/25/18 11:46 06/25/18 04:50 ABG, PT/INR, D-dimer: ABG POC ABG pH 7.381 (7.35-7.45) 06/20/18 11:51 POC ABG pCO2 44.7 (35-45) 06/20/18 11:51 POC ABG pO2 86 (80-105) 06/20/18 11:51 POC ABG HCO3 26.5 (22-26 mml/L) 06/20/18 11:51 POC ABG Total CO2 28 (23-27mmol/L) 06/20/18 11:51 POC ABG O2 Sat 96 06/20/18 11:51 PT/INR, D-dimer PT 14.6 Sec. (12.2-14.9) 06/25/18 11:46 INR 1.07 (0.87-1.13) 06/25/18 11:46 Abnormal lab findings: Abnormal Labs 06/02/18 06/02/18 06/02/18 21:25 21:25 22:03 WBC RBC Hgb Hct MCV MCH 33 H MCHC 35 H RDW 12.8 L Plt Count Lymph % (Auto) Lymph # Seg Neutrophils % Seg Neuts % (Manual) 80.0 H Lymphocytes % (Manual) Seg Neutrophils # Lymphocytes # (Manual) 0.8 L PT INR Sodium 109 L* Potassium Chloride 71.3 L Carbon Dioxide BUN 6 L Creatinine 0.5 L Glucose POC Glucose Calcium Phosphorus Magnesium Ammonia Total Creatine Kinase 420 H Total Protein Albumin Urine WBC (Auto) 24.0 H 06/03/18 06/03/18 06/03/18 00:15 06:27 09:42 WBC RBC Hgb Hct MCV MCH MCHC RDW Plt Count Lymph % (Auto) Lymph # Seg Neutrophils % Seg Neuts % (Manual) Lymphocytes % (Manual) Seg Neutrophils # Lymphocytes # (Manual) PT INR Sodium 113 L* 118 L* 116 L* Potassium 3.5 L 3.5 L Chloride 77.2 L 79.1 L 78.2 L Carbon Dioxide BUN 5 L 4 L 4 L Creatinine 0.4 L 0.5 L 0.4 L Glucose POC Glucose Calcium 8.2 L 7.9 L 8.1 L Phosphorus Magnesium Ammonia Total Creatine Kinase Total Protein Albumin Urine WBC (Auto) 06/03/18 06/03/18 06/03/18 14:41 14:41 20:45 WBC RBC Hgb Hct MCV MCH MCHC RDW Plt Count Lymph % (Auto) Lymph # Seg Neutrophils % Seg Neuts % (Manual) Lymphocytes % (Manual) Seg Neutrophils # Lymphocytes # (Manual) PT INR Sodium 114 L* 118 L* Potassium 3.1 L Chloride 76.3 L 79.7 L Carbon Dioxide BUN 4 L 3 L Creatinine 0.5 L 0.4 L Glucose POC Glucose Calcium 8.1 L 8.3 L Phosphorus Magnesium Ammonia 23.0 L Total Creatine Kinase Total Protein Albumin Urine WBC (Auto) 06/04/18 06/04/18 06/04/18 04:39 09:47 09:47 WBC RBC Hgb Hct MCV 95 H MCH 33 H MCHC RDW 12.8 L Plt Count Lymph % (Auto) Lymph # Seg Neutrophils % Seg Neuts % (Manual) 92.0 H Lymphocytes % (Manual) 5.0 L Seg Neutrophils # Lymphocytes # (Manual) 0.3 L PT INR Sodium 123 L Potassium Chloride 85.2 L Carbon Dioxide BUN 5 L Creatinine 0.5 L Glucose 129 H POC Glucose Calcium 8.3 L Phosphorus Magnesium Ammonia Total Creatine Kinase Total Protein 5.5 L Albumin 3.1 L Urine WBC (Auto) 06/05/18 06/06/18 06/07/18 04:29 05:25 07:11 WBC RBC Hgb Hct MCV MCH MCHC RDW Plt Count Lymph % (Auto) Lymph # Seg Neutrophils % Seg Neuts % (Manual) Lymphocytes % (Manual) Seg Neutrophils # Lymphocytes # (Manual) PT INR Sodium 126 L 133 L D 126 L D Potassium Chloride 90.4 L 95.1 L 86.1 L Carbon Dioxide BUN 8 L Creatinine 0.5 L 0.5 L 0.5 L Glucose 170 H 123 H 129 H POC Glucose Calcium 8.2 L 8.1 L Phosphorus Magnesium Ammonia Total Creatine Kinase Total Protein Albumin Urine WBC (Auto) 06/08/18 06/09/18 06/10/18 11:03 06:13 07:14 WBC RBC Hgb Hct MCV MCH MCHC RDW Plt Count Lymph % (Auto) Lymph # Seg Neutrophils % Seg Neuts % (Manual) Lymphocytes % (Manual) Seg Neutrophils # Lymphocytes # (Manual) PT INR Sodium 134 L D Potassium Chloride 92.2 L Carbon Dioxide 31 H BUN Creatinine 0.5 L 0.6 L 0.5 L Glucose 106 H 130 H 126 H POC Glucose Calcium Phosphorus Magnesium Ammonia Total Creatine Kinase Total Protein Albumin Urine WBC (Auto) 06/11/18 06/12/18 06/13/18 10:23 04:58 05:33 WBC RBC Hgb Hct MCV MCH MCHC RDW Plt Count Lymph % (Auto) Lymph # Seg Neutrophils % Seg Neuts % (Manual) Lymphocytes % (Manual) Seg Neutrophils # Lymphocytes # (Manual) PT INR Sodium 136 L 134 L Potassium 3.5 L Chloride Carbon Dioxide BUN 27 H Creatinine 0.4 L 0.5 L 0.6 L Glucose 155 H 141 H 112 H POC Glucose Calcium 8.1 L 7.9 L 8.3 L Phosphorus Magnesium Ammonia Total Creatine Kinase Total Protein Albumin Urine WBC (Auto) 06/13/18 06/14/18 06/14/18 05:33 05:14 05:14 WBC 12.6 H 12.3 H RBC Hgb Hct MCV 97 H 98 H MCH 33 H MCHC RDW Plt Count 133 L Lymph % (Auto) Lymph # Seg Neutrophils % Seg Neuts % (Manual) Lymphocytes % (Manual) Seg Neutrophils # Lymphocytes # (Manual) PT INR Sodium 146 H Potassium Chloride 107.2 H Carbon Dioxide BUN 31 H Creatinine 0.6 L Glucose 113 H POC Glucose Calcium Phosphorus Magnesium Ammonia Total Creatine Kinase Total Protein Albumin Urine WBC (Auto) 06/15/18 06/15/18 06/16/18 04:47 04:47 03:20 WBC 16.7 H RBC Hgb Hct MCV 97 H MCH MCHC RDW Plt Count 138 L Lymph % (Auto) Lymph # Seg Neutrophils % Seg Neuts % (Manual) Lymphocytes % (Manual) Seg Neutrophils # Lymphocytes # (Manual) PT INR Sodium 146 H Potassium Chloride 109.2 H Carbon Dioxide BUN 32 H Creatinine 0.6 L Glucose 124 H POC Glucose Calcium 7.8 L Phosphorus Magnesium Ammonia Total Creatine Kinase Total Protein Albumin Urine WBC (Auto) 89.0 H 06/16/18 06/17/18 06/17/18 05:22 08:21 08:21 WBC 11.4 H RBC Hgb Hct MCV 98 H MCH 33 H MCHC RDW Plt Count 107 L Lymph % (Auto) Lymph # Seg Neutrophils % Seg Neuts % (Manual) Lymphocytes % (Manual) Seg Neutrophils # Lymphocytes # (Manual) PT INR Sodium 146 H 146 H Potassium Chloride 109.0 H 109.2 H Carbon Dioxide BUN 39 H 47 H Creatinine Glucose 120 H 109 H POC Glucose Calcium 7.9 L 8.3 L Phosphorus Magnesium 2.60 H Ammonia Total Creatine Kinase Total Protein 5.2 L Albumin 2.9 L Urine WBC (Auto) 06/18/18 06/19/18 06/19/18 05:06 09:10 09:10 WBC RBC 3.50 L Hgb 11.7 L Hct 34.4 L MCV 98 H MCH 33 H MCHC RDW Plt Count 98 L Lymph % (Auto) 11.8 L Lymph # Seg Neutrophils % 82.4 H Seg Neuts % (Manual) Lymphocytes % (Manual) Seg Neutrophils # 8.8 H Lymphocytes # (Manual) PT 16.6 H INR 1.26 H Sodium 146 H Potassium Chloride 107.3 H Carbon Dioxide BUN 29 H Creatinine 0.7 L Glucose 74 L POC Glucose Calcium 7.6 L Phosphorus Magnesium Ammonia Total Creatine Kinase Total Protein Albumin Urine WBC (Auto) 06/21/18 06/21/18 06/21/18 11:55 11:55 14:49 WBC RBC 3.05 L Hgb 10.0 L Hct 29.4 L MCV 97 H MCH 33 H MCHC RDW 12.6 L Plt Count 84 L Lymph % (Auto) 10.7 L Lymph # 0.6 L Seg Neutrophils % 83.4 H Seg Neuts % (Manual) Lymphocytes % (Manual) Seg Neutrophils # Lymphocytes # (Manual) PT INR Sodium 130 L D 132 L Potassium 2.9 L* D 3.1 L Chloride 93.8 L 94.1 L Carbon Dioxide BUN Creatinine 0.4 L 0.4 L Glucose 107 H 115 H POC Glucose Calcium 7.4 L 7.7 L Phosphorus 1.90 L Magnesium 1.50 L Ammonia Total Creatine Kinase Total Protein Albumin Urine WBC (Auto) 06/22/18 06/22/18 06/24/18 05:11 11:56 00:39 WBC RBC 2.99 L Hgb 10.0 L Hct 29.3 L MCV 98 H MCH 34 H MCHC RDW 13.1 L Plt Count 120 L Lymph % (Auto) Lymph # 0.7 L Seg Neutrophils % 76.5 H Seg Neuts % (Manual) Lymphocytes % (Manual) Seg Neutrophils # Lymphocytes # (Manual) PT INR Sodium 135 L Potassium Chloride Carbon Dioxide BUN Creatinine 0.4 L Glucose 120 H POC Glucose 110 H Calcium 7.3 L Phosphorus 2.40 L D Magnesium Ammonia Total Creatine Kinase Total Protein Albumin Urine WBC (Auto) 06/24/18 06/25/18 06/25/18 05:00 04:50 04:50 WBC RBC Hgb Hct MCV MCH MCHC RDW Plt Count Lymph % (Auto) Lymph # Seg Neutrophils % Seg Neuts % (Manual) Lymphocytes % (Manual) Seg Neutrophils # Lymphocytes # (Manual) PT 15.7 H INR 1.17 H Sodium 132 L 131 L Potassium Chloride 96.0 L Carbon Dioxide BUN Creatinine 0.3 L 0.3 L Glucose 119 H 112 H POC Glucose Calcium 7.5 L 7.8 L Phosphorus Magnesium Ammonia Total Creatine Kinase Total Protein Albumin Urine WBC (Auto) 06/25/18 11:46 WBC RBC Hgb 11.0 L Hct 32.2 L MCV MCH MCHC RDW Plt Count 139 L Lymph % (Auto) Lymph # Seg Neutrophils % Seg Neuts % (Manual) Lymphocytes % (Manual) Seg Neutrophils # Lymphocytes # (Manual) PT INR Sodium Potassium Chloride Carbon Dioxide BUN Creatinine Glucose POC Glucose Calcium Phosphorus Magnesium Ammonia Total Creatine Kinase Total Protein Albumin Urine WBC (Auto) CT scan - chest: report reviewed (Angio CT of chest reported No PE.), image reviewed Additional Studies: Angio CT of Chest done on 06/25/18. IMPRESSION: 1. No evidence for pulmonary embolism. 2. Bilateral pleural effusions and adjacent bibasilar compressive atelectasis 3. Slight enlargement in a cyst in the medial left kidney. Ultrasound is recommended to confirm a benign cyst. Allied health notes reviewed: nursing
== END 2018-06-25 18:44 | DRG 70 ==
LOC: ED 20:39 → 4A 23:56 → EDBD 23:56 → 4A 06-03 03:33 → IMCU 06-03 18:27 → 2B-ACE 06-06 16:37 → 4A 06-07 04:53 → 2B-ACE 06-09 15:41 → IMCU 06-20 11:39
PROVIDERS: ADMIT Internal Medicine; ATTEND Internal Medicine
PROC: 4A033R1 Measurement of Arterial Saturation, Peripheral, Percutaneous Approach (ICD-10-PCS; principal; 2018-06-20)
DX: G93.41 Metabolic encephalopathy (principal); J96.01 Acute respiratory failure with hypoxia; E43 Unspecified severe protein-calorie malnutrition; A41.9 Sepsis, unspecified organism; E87.1 Hypo-osmolality and hyponatremia; N39.0 Urinary tract infection, site not specified; J44.1 Chronic obstructive pulmonary disease with (acute) exacerbation; I48.92 Unspecified atrial flutter; F10.239 Alcohol dependence with withdrawal, unspecified; Z68.1 Body mass index [BMI] 19.9 or less, adult; D68.59 Other primary thrombophilia; E87.0 Hyperosmolality and hypernatremia; F03.90 Unspecified dementia, unspecified severity, without behavioral disturbance, psychotic disturbance, mood disturbance, and anxiety; Z53.29 Procedure and treatment not carried out because of patient's decision for other reasons; E83.41 Hypermagnesemia; N13.9 Obstructive and reflux uropathy, unspecified; R13.12 Dysphagia, oropharyngeal phase; E83.39 Other disorders of phosphorus metabolism; E83.42 Hypomagnesemia; E78.00 Pure hypercholesterolemia, unspecified; F17.210 Nicotine dependence, cigarettes, uncomplicated; E87.6 Hypokalemia; I11.0 Hypertensive heart disease with heart failure; E86.0 Dehydration; Y90.0 Blood alcohol level of less than 20 mg/100 ml; I50.9 Heart failure, unspecified; Z88.8 Allergy status to other drugs, medicaments and biological substances; Z79.51 Long term (current) use of inhaled steroids; Z79.899 Other long term (current) drug therapy; Z71.6 Tobacco abuse counseling; Z71.41 Alcohol abuse counseling and surveillance of alcoholic
CPT/HCPCS: 36415; 36600; 70450; 70551; 71045; 71275; 74018; 74177; 76700; 80048; 80053; 80076; 81001; 82140; 82550; 82607; 82803; 82962; 83735; 83880; 83930; 83935; 84100; 84300; 84443; 84484; 84550; 85007; 85014; 85018; 85025; 85027; 85049; 85610; 85730; 86592; 87040; 87076; 87086; 87186; 93005; 93010; 93306; 94640; 94760; 96374; 99291; 99406; G0378; C9113; J0295; J0360; J0456; J0692; J0696; J1265; J1630; J1650; J2060; J2270; J2920; J2930; J3370; J3475; J7030; J7040; J7042; J7050; J7070; P9045; Q9967